=== PATIENT | male | born 1945 | race Caucasian/White ===

== ENCOUNTER 2022-12-15 07:57 | Inpatient (IN) | payer OTHER, MEDICARE, SELFPAY ==
[2022-12-15] VITALS (20 sets, daily range): BP systolic 119–208; BP diastolic 72–116; PULSE 65–86; RESP 16–24; TEMP 36.6–37.6; O2SAT 75–99; BMI 24.7; BMI 26.4
--- NOTE | 2022-12-15 08:15 | CRLHL7_ITS ---
For Patients: As a result of the Century Cures Act, medical imaging exams and procedure reports are released immediately into your electronic medical record. You may view this report before your referring provider. If you have questions, please contact your health care provider. INDICATION: Status post fall. On blood thinners. COMPARISON: Head CT 09/07/2019. TECHNIQUE: Noncontrast CT scan of the brain was performed. FINDINGS: Global cerebral volume loss is consistent with patient`s age. Patchy hypodensities within the white matter tracts of both cerebral hemispheres are nonspecific but typically seen with small vessel disease/chronic white matter ischemic changes of aging. No intracranial hemorrhage or mass effect is identified. The paranasal sinuses and mastoid air cells are well aerated. The orbits are unremarkable. No fracture is identified. IMPRESSION: No acute abnormality. Please note that all CT scans at this facility use dose modulation, iterative reconstruction, and/or weight-based dosing when appropriate to reduce radiation dose to as low as reasonably achievable. Dictated by Ignacio Horowitz MD @ 12/15/2022 8:41:46 AM (Electronically Signed)
[2022-12-15 08:48] LABS: Lactate* 3.5 mmol/L (0.5-1.9)
[2022-12-15] MEDS: 0.9 % SODIUM CHLORIDE 1000 ml 1,000 ML IV ×2 (09:01→11:27)
[2022-12-15 09:04] LABS: Chloride* 102 mmol/L (96-114)
[2022-12-15 09:05] LABS: Potassium* 3.9 mmol/L (3.6-5.1); Sodium* 138 mmol/L (135-149)
--- NOTE | 2022-12-15 09:05 | CRLHL7_ITS ---
For Patients: As a result of the Cures Act, medical imaging exams and procedure reports are released immediately into your electronic medical record. You may view this report before your referring provider. If you have questions, please contact your health care provider. Indication: Injury Technique: A total of two views of the right elbow were acquired. Comparison: None Findings: Bones: Somewhat limited due to portable technique. No visible acute fracture, dislocation or destructive process. Joint spaces: Mild osteoarthritis. No definite joint effusion. Soft tissues: Unremarkable. Impression: Somewhat limited by portable technique. No visible acute fracture, dislocation or destructive process. Mild osteoarthritis. Dictated by Phillip Bustillos MD @ 12/15/2022 9:46:49 AM (Electronically Signed)
[2022-12-15 09:06] LABS: PCR FLU A Negative PCR FLU A (Negative); PCR FLU B Negative PCR FLU B (Negative); PCR RSV Negative PCR RSV (Negative)
[2022-12-15 09:07] LABS: Est. Creatinine Clearance* 57.84; Estimated Glomerular Filt Rate 78 ml/min
[2022-12-15 09:08] LABS: Blood Urea Nitrogen* 18 mg/dL (7-30); Calcium* 8.9 mg/dL (8.4-10.6); Carbon Dioxide* 28 mmol/L (20-32); Ethanol* 0.13 % (0.01-0.03); Glucose* 91 mg/dL (60-115)
[2022-12-15 09:10] LABS: Basophils Absolute Auto 0.01 K/uL (0.00-0.30); Basophils Percent Auto 0.1 % (0.0-3.0); Eosinophils Absolute Auto 0.03 K/uL (0.00-0.50); Eosinophils Percent Auto 0.4 % (0.0-7.0); Hematocrit 44.5 % (37.0-53.0); Hemoglobin* 14.4 gm/dL (13.5-17.5); Immature Granulocytes Abs Auto 0.03 K/uL (0.00-0.30); Immature Granulocytes Pct Auto 0.4 %; Lymphocytes Percent Auto 7.7 % (20-44); Mean Corpuscular HGB Conc 32 gm/dL (32-36); Mean Corpuscular Hemoglobin 30 pg (26-34); Mean Corpuscular Volume 92 fL (80-100); Monocytes Percent Auto 7.8 % (0.0-11.0); Neutrophils Percent Auto 83.6 % (42.0-72.0); Platelet Count* 148 K/uL (140-440); RDW Coefficient of Variation % 16.6 % (11.5-15.5); Red Blood Count 4.85 m/uL (4.30-5.90); White Blood Count* 7.55 K/uL (4.50-11.00)
[2022-12-15 09:11] LABS: SARS PCR* Negative SARS-CoV-2 (Negative)
[2022-12-15 09:12] LABS: C Reactive Protein* < 0.5 mg/dL (0.5-1.0); INR 1.76 (0.91-1.10); Prothrombin Time 21.4 Seconds; Slide Review Reflex No
[2022-12-15 09:13] LABS: Partial Thromboplastin Time* 36 Seconds (23-33)
[2022-12-15 09:17] LABS: Troponin, Point-of-Care* 0.01 ng/ml (0.01-0.04)
[2022-12-15 09:21] LABS: NT Pro B Type NatriureticPept* 802 pg/mL
[2022-12-15 09:23] LABS: Creatine Kinase* 925 U/L (54-186)
--- NOTE | 2022-12-15 09:44 | CRLHL7_ITS ---
For Patients: As a result of the Cures Act, medical imaging exams and procedure reports are released immediately into your electronic medical record. You may view this report before your referring provider. If you have questions, please contact your health care provider. INDICATION: SOB TECHNIQUE: Chest 2 views COMPARISON: 09/07/2019 FINDINGS: The cardiac silhouette is enlarged. Tortuosity of the descending thoracic aorta noted. There is no pleural effusion. Vascular calcifications are present. Similar appearance of colon beneath the right hemidiaphragm. Increased reticular markings bilaterally compared to the prior study. No air bronchograms. IMPRESSION: Increased reticular markings bilaterally may suggest either mild interstitial edema or viral infection. Dictated by Erich Chang MD @ 12/15/2022 10:14:33 AM (Electronically Signed)
--- NOTE | 2022-12-15 10:06 | ED_ITS ---
HPI - Fall General Date Seen: 12/15/22 Chief Complaint: Fall/Minor Trauma Stated Complaint: syncope Time Seen by Provider: 12/15/22 08:36 Source: patient Mode of arrival: ambulatory Limitations: no limitations History of Present Illness HPI Narrative: Patient is a 77-year-old gentleman who presents from home via EMS, he was lying on the ground, after he fell, he tells me that this possibly was a syncopal episode but does not really remember it but he laid on the ground all night did want to bother anyone, but this morning, I believe his daughter called EMS. He is a , [facility], denies any chest pain, any headache or neck pain associated with this. Is on Xarelto, and tells me he is bruise is noted on his right elbow and left elbow from previous falls but he did fall injuries left elbow denies any neck pain associated with this. MD complaint: fall Onset (ago): hour(s) Fall from: standing Fall witnessed: no Place fall occurred: home Loss of consciousness: No Prolonged down time: yes and hour(s) Symptoms prior to fall: lightheadedness Context: tripped/slipped and history of frequent falls Location of injury: head and other Associated symptoms (after fall): denies Related Data Home Medications Medication Instructions Recorded Confirmed atorvastatin 40 mg tablet 40 mg PO QHS 12/15/22 12/15/22 brimonidine 0.2 % eye drops 1 drp ophthalmic (eye) BID 12/15/22 12/15/22 calcium carbonate 500 mg calcium 500 mg PO DAILY 12/15/22 12/15/22 (1,250 mg) tablet carboxymethylcellulose sodium 0.25 1 drp ophthalmic (eye) Q1H PRN 12/15/22 12/15/22 % eye drops in a dropperette cholecalciferol (vitamin D3) 25 25 mcg PO DAILY 12/15/22 12/15/22 mcg (1,000 unit) capsule cyanocobalamin (vitamin B-12) 1,000 mcg PO DAILY 12/15/22 12/15/22 1,000 mcg capsule fluticasone 250 mcg-salmeterol 50 1 inh inhalation BID 12/15/22 12/15/22 mcg/dose blistr powdr for inhalation (Advair Diskus) fluticasone propionate 50 1 spray intranasal DAILY PRN 12/15/22 12/15/22 mcg/actuation nasal spray,suspension (Allergy Relief (fluticasone)) gabapentin 300 mg capsule 600 mg PO BID 12/15/22 12/15/22 ipratropium bromide 17 2 inh inhalation Q6H 12/15/22 12/15/22 mcg/actuation HFA aerosol inhaler rivaroxaban 20 mg tablet 20 mg PO DAILY 12/15/22 12/15/22 zolpidem 10 mg tablet 5 - 10 mg PO QHS PRN 12/15/22 12/15/22 Allergies Allergy/AdvReac Type Severity Reaction Status Date / Time Penicillins Allergy Severe Rash Verified 12/15/22 08:01 Review of Systems Status of ROS: Reports: 10 or more systems reviewed and unremarkable except as noted in History and below PFSH [facility] Medical History (Updated 12/15/22 @ 12:54 by Best Lechuga MD) BPH (benign prostatic hyperplasia) ?N40.0 - Benign prostatic hyperplasia without lower urinary tract symptoms (ICD-10) COPD (chronic obstructive pulmonary disease) ?J44.9 - Chronic obstructive pulmonary disease, unspecified (ICD-10) Coronary artery disease ?I25.10 - Atherosclerotic heart disease of [place] coronary artery without angina pectoris (ICD-10) Depression ?F32.A - Depression, unspecified (ICD-10) Insomnia ?G47.00 - Insomnia, unspecified (ICD-10) Orthostatic hypotension ?I95.1 - Orthostatic hypotension (ICD-10) Recurrent deep vein thrombosis (DVT) ?I82.409 - Acute embolism and thrombosis of unspecified deep veins of unspecified lower extremity (ICD-10) Surgical History (Updated 12/15/22 @ 12:35 by Aria Dougherty MD) History of blepharoplasty ?Z98.890 - Other specified postprocedural states (ICD-10) Stented coronary artery ?Z95.5 - Presence of coronary angioplasty implant and graft (ICD-10) Social History (Updated 12/15/22 @ 12:37 by Aria Dougherty MD) Narrative: Rogerio lives near [facility] with Jocy and daughter Karen. Karen would be medical decision maker if needed. Rogerio requests DNR/DNI status. 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 He quit smoking in 2003 after his OK. Drinks 2-3 vodka drinks 3-4 nights/week, no history of withdrawal. Smoking Status: Never smoker Second hand tobacco smoke exposure: No How often do you have a drink containing alcohol: 2-3 times a week How many standard drinks containing alcohol do you have on a typical day: 3 or 4 AUDIT-C Alcohol total score: 4 Non-prescribed substance use: denies use service: Yes Exam Narrative: Exam Narrative: Patient is seen in room a, he is in no distress speaking to me normally, pupils equal round reactive to light, no scleral icterus redness is TMs are normally has a bruise over the right side of his forehead, there is no hematoma associated with this neck is supple there is no tenderness to palpation over cervical spine flexion extension lateral flexion rotation are normal his chest is good air entry bilaterally with no wheezing crackles noted heart sounds no clicks murmurs or gallops he has multiple bruises on his elbows bilaterally, but appears to be this senile purpura, these are of various colors, which tells me h e has fallen before. There is no significant skin abrasion I can see, his range of motion of his elbows is normal bilaterally in flexion extension supination pronation, sde strengths are equal bilaterally abdomen is soft and pot belly there is no guarding no past splenomegaly bowel sounds are normal, back is nontender both thoracic lumbar on palpation percussion, on and on log rolling. Lower extremities appear normal. Const: Vital Signs, click to edit/add: Vital Signs - 24 hr 12/15/22 08:02 12/15/22 08:08 12/15/22 08:10 Temperature 97.8 F Pulse Rate 84 86 Pulse Rate [Pulse Oximeter] 86 Respiratory Rate 24 Blood Pressure 208/111 H Blood Pressure [Le ft Upper Arm] 175/116 H Pulse Oximetry 97 94 89 Oxygen Delivery Me thod Room Air Oxygen Flow Rate 12/15/22 08:35 12/15/22 08:45 12/15/22 08:47 Temperature Pulse Rate 77 72 72 Pulse Rate [Pulse Oximeter] Respiratory Rate Blood Pressure 172/94 H Blood Pressure [Le ft Upper Arm] Pulse Oximetry 86 L 88 89 Oxygen Delivery Me thod Oxygen Flow Rate 12/15/22 09:00 12/15/22 09:04 12/15/22 09:15 Temperature Pulse Rate 82 74 72 Pulse Rate [Pulse Oximeter] Respiratory Rate Blood Pressure 176/104 H Blood Pressure [Le ft Upper Arm] Pulse Oximetry 75 L 85 L 99 Oxygen Delivery Me thod Nasal Cannula Nasal Cannula Oxygen Flow Rate 2 3 12/15/22 09:30 12/15/22 09:32 Temperature Pulse Rate 73 73 Pulse Rate [Pulse Oximeter] Respiratory Rate Blood Pressure 166/85 H Blood Pressure [Le ft Upper Arm] Pulse Oximetry 80 L 95 Oxygen Delivery Me thod Oxygen Flow Rate Course Reevaluation(s) Reevaluation #1: Discussed with the patient, I recommended admission, there clearly is some issue with alcohol here.. Was a syncopal episode, is CK is mildly elevated, he will need fluids over the next 24 hours, CT of his head neck is reassuring, chest x- ray shows no acute findings, I think we can safely admit him, I spoke to Dr. Dougherty she will meet him to the hospital service. His elevated lactate I believe is likely secondary to his alcohol use I am not thinking this is sepsis. At this point. Vital Signs Vital signs: Initial Vital Signs Temperature 97.8 F 12/15/22 08:02 Temperature Source Temporal Artery Scan 12/15/22 08:02 Pulse Rate 86 12/15/22 08:02 Pulse Rhythm Regular 12/15/22 08:02 Respiratory Rate 24 12/15/22 08:02 Blood Pressure 175/116 H 12/15/22 08:02 Blood Pressure Mean 135 H 12/15/22 08:02 Blood Pressure Position Supine 12/15/22 08:02 Pulse Oximetry 97 12/15/22 08:02 Oxygen Delivery Method Room Air 12/15/22 08:02 Vital Signs Temperature 97.8 F 12/15/22 08:02 Pulse Rate 86 12/15/22 08:02 Respiratory Rate 24 12/15/22 08:02 Blood Pressure 175/116 H 12/15/22 08:02 Pulse Oximetry 97 12/15/22 08:02 Oxygen Delivery Method Room Air 12/15/22 08:02 Temperature 97.8 F 12/15/22 08:02 Pulse Rate 73 12/15/22 09:32 Respiratory Rate 24 12/15/22 08:02 Blood Pressure 166/85 H 12/15/22 09:32 Pulse Oximetry 95 12/15/22 09:32 Oxygen Delivery Method Nasal Cannula 12/15/22 09:15 Oxygen Flow Rate 3 12/15/22 09:15 MDM - Fall MDM Narrative Medical decision making narrative: Life-threatening differential diagnosis considered include: Cardiac arrhythmia, acute blood loss, and intracranial bleed. Other differential diagnosis include but are not limited to vasovagal syncope, orthostatic syncope, seizure, as well as other etiologies Medical Records Attestation: I reviewed the patient's medical records. Lab Data Attestation: I reviewed the patient's lab results. Labs: Lab Results 12/15/22 12/15/22 12/15/22 Range/Units 08:22 08:32 08:35 WBC 7.55 (4.50-11.00) K/uL RBC 4.85 (4.30-5.90) m/uL Hgb 14.4 (13.5-17.5) gm/dL Hct 44.5 (37.0-53.0) % MCV 92 (80-100) fL MCH 30 (26-34) pg MCHC 32 (32-36) gm/dL RDW Coeff of Kyung 16.6 H (11.5-15.5) % Plt Count 148 (140-440) K/uL Neut % (Auto) 83.6 H (42.0-72.0) % Lymph % (Auto) 7.7 L (20-44) % [place] % (Auto) 7.8 (0.0-11.0) % Eos % (Auto) 0.4 (0.0-7.0) % Baso % (Auto) 0.1 (0.0-3.0) % Neut # (Auto) 6.30 (1.7-7.0) K/uL Lymph # (Auto) 0.60 L (0.90-2.90) K/uL [place] # (Auto) 0.60 (0.00-0.90) K/UL Eos # (Auto) 0.03 (0.00-0.50) K/uL Baso # (Auto) 0.01 (0.00-0.30) K/uL INR 1.76 H (0.91-1.10) APTT 36 H (23-33) Seconds D-Dimer Quant (PE/DVT) (0.00-0.50) ug/ml Sodium 138 (135-149) mmol/L Potassium 3.9 (3.6-5.1) mmol/L Chloride 102 (96-114) mmol/L Carbon Dioxide 28 (20-32) mmol/L BUN 18 (7-30) mg/dL Creatinine 1.0 (0.5-1.5) mg/dL Estimated Creat Clear 57.84 Estimated GFR 78 ml/min Glucose 91 (60-115) mg/dL Lactate 3.5 H (0.5-1.9) mmol/L Calcium 8.9 (8.4-10.6) mg/dL Total Creatine Kinase 925 H (54-186) U/L C-Reactive Protein < 0.5 L (0.5-1.0) mg/dL NT-Pro-B Natriuret Pep 802 pg/mL Ethyl Alcohol 0.13 H (0.01-0.03) % SARS-CoV-2 (PCR) Negative SARS-CoV-2 (Negative) Influenza Type A (PCR) Negative PCR FLU A (Negative) Influenza Type B (PCR) Negative PCR FLU B (Negative) RSV (PCR) Negative PCR RSV (Negative) POC Troponin I 0.01 (0.01-0.04) ng/ml 12/15/22 Range/Units 09:57 WBC (4.50-11.00) K/uL RBC (4.30-5.90) m/uL Hgb (13.5-17.5) gm/dL Hct (37.0-53.0) % MCV (80-100) fL MCH (26-34) pg MCHC (32-36) gm/dL RDW Coeff of Kyung (11.5-15.5) % Plt Count (140-440) K/uL Neut % (Auto) (42.0-72.0) % Lymph % (Auto) (20-44) % [place] % (Auto) (0.0-11.0) % Eos % (Auto) (0.0-7.0) % Baso % (Auto) (0.0-3.0) % Neut # (Auto) (1.7-7.0) K/uL Lymph # (Auto) (0.90-2.90) K/uL [place] # (Auto) (0.00-0.90) K/UL Eos # (Auto) (0.00-0.50) K/uL Baso # (Auto) (0.00-0.30) K/uL INR (0.91-1.10) APTT (23-33) Seconds D-Dimer Quant (PE/DVT) 0.62 H (0.00-0.50) ug/ml Sodium (135-149) mmol/L Potassium (3.6-5.1) mmol/L Chloride (96-114) mmol/L Carbon Dioxide (20-32) mmol/L BUN (7-30) mg/dL Creatinine (0.5-1.5) mg/dL Estimated Creat Clear Estimated GFR ml/min Glucose (60-115) mg/dL Lactate (0.5-1.9) mmol/L Calcium (8.4-10.6) mg/dL Total Creatine Kinase (54-186) U/L C-Reactive Protein (0.5-1.0) mg/dL NT-Pro-B Natriuret Pep pg/mL Ethyl Alcohol (0.01-0.03) % SARS-CoV-2 (PCR) (Negative) Influenza Type A (PCR) (Negative) Influenza Type B (PCR) (Negative) RSV (PCR) (Negative) POC Troponin I (0.01-0.04) ng/ml Imaging Data CT scan - head: Radiologist's impression: Patient: [facility] Facility:[facility] Patient ID:?[id number] Site Patient ID:?[id number]. Site :?1945 Study:?XRay Extremity Right ELBOE 2V-12/15/2022 9:32:32 AM Ordering Physician:Tonya Jewell Final Report: Indication: Injury Technique: A total of two views of the right elbow were acquired. Comparison: None Findings: Bones: Somewhat limited due to portable technique. No visible acute fracture, dislocation or destructive process. Joint spaces: Mild osteoarthritis. No definite joint effusion. Soft tissues: Unremarkable. Impression: Somewhat limited by portable technique. No visible acute fracture, dislocation or destructive process. Mild osteoarthritis. Dictated by Phillip Bustillos MD @ 12/15/2022 9:46:49 AM (Electronic Signature) Patient: [facility] Facility:[facility] Patient ID:?[id number] Site Patient ID:?[id number]. Site :?1945 Study:?CT Head W/O-12/15/2022 8:31:24 AM Ordering Physician:YANET TORRES Final Report: INDICATION: Status post fall. On blood thinners. COMPARISON: Head CT 09/07/2019. TECHNIQUE: Noncontrast CT scan of the brain was performed. FINDINGS: Global cerebral volume loss is consistent with patient`s age. Patchy hypodensities within the white matter tracts of both cerebral hemispheres are nonspecific but typically seen with small vessel disease/chronic white matter ischemic changes of aging. No intracranial hemorrhage or mass effect is identified. The paranasal sinuses and mastoid air cells are well aerated. The orbits are unremarkable. No fracture is identified. IMPRESSION: No acute abnormality. Please note that all CT scans at this facility use dose modulation, iterative reconstruction, and/or weight-based dosing when appropriate to reduce radiation dose to as low as reasonably achievable. Dictated by Ignacio Horowitz MD @ 12/15/2022 8:41:46 AM (Electronic Signature) Patient: [facility] CHANS Facility:?[facility] Patient ID:?[id number] Site Patient ID:?[id number]. Site :?1945 Study:?XRay Chest 2 VIEW-12/15/2022 10:05:37 AM Ordering Physician:Tonya Jewell Final Report: INDICATION: SOB TECHNIQUE: Chest 2 views COMPARISON: 09/07/2019 FINDINGS: The cardiac silhouette is enlarged. Tortuosity of the descending thoracic aorta noted. There is no pleural effusion. Vascular calcifications are present. Similar appearance of colon beneath the right hemidiaphragm. Increased reticular markings bilaterally compared to the prior study. No air bronchograms. IMPRESSION: Increased reticular markings bilaterally may suggest either mild interstitial edema or viral infection. Dictated by Erich Chang MD @ 12/15/2022 10:14:33 AM (Electronic Signature) Patient: [facility]S IGLESIAS Facility:?[facility] Patient ID:?[id number] Site Patient ID:?[id number] Site :?1945 Study:?CT Spine Cervical -12/15/2022 10:38:01 AM Ordering Physician:Tonya Jewell Final Report: INDICATION: Injury COMPARISON: None TECHNIQUE: CT examination of the cervical spine is performed without contrast using spiral technique. Thin axial, sagittal and coronal reconstructions were made. Please note that all CT scans at this facility use dose modulation, iterative reconstruction, and/or weight-based dosing when appropriate to reduce radiation dose to as low as reasonably achievable. FINDINGS: : There is straightening of the spine. This is usually due to muscle spasm, positioning or immobilization device. There are moderate to severe degenerative changes diffusely but most affecting the mid and lower lumbar spine. There is no visible acute fracture, dislocation or destructive process. Atherosclerotic vascular calcifications. IMPRESSION: Straightening. Degenerative changes. No acute fracture, dislocation or destructive process. Please note that all CT scans at this facility use dose modulation, iterative reconstruction, and/or weight-based dosing when appropriate to reduce radiation dose to as low as reasonably achievable. Dictated by Phillip Bustillos MD @ 12/15/2022 10:50:59 AM (Electronic Signature) ECG Data ECG interpretation date: 12/15/22 Interpretation: EKG shows normal sinus rhythm with ventricular rate of 74, left anterior fascicular block, ST wave flattening noted laterally, abnormal EKG Discharge Plan Discharge Clinical Impression: Elevation of levels of lactic acid dehydrogenase [LDH], Elevated ETOH level, Syncopal episodes, Weakness Patient Disposition: Admitted As Inpatient Condition: Stable Activity Level: No Restrictions
--- NOTE | 2022-12-15 10:10 | CRLHL7_ITS ---
For Patients: As a result of the Cures Act, medical imaging exams and procedure reports are released immediately into your electronic medical record. You may view this report before your referring provider. If you have questions, please contact your health care provider. INDICATION: Injury COMPARISON: None TECHNIQUE: CT examination of the cervical spine is performed without contrast using spiral technique. Thin axial, sagittal and coronal reconstructions were made. Please note that all CT scans at this facility use dose modulation, iterative reconstruction, and/or weight-based dosing when appropriate to reduce radiation dose to as low as reasonably achievable. FINDINGS: : There is straightening of the spine. This is usually due to muscle spasm, positioning or immobilization device. There are moderate to severe degenerative changes diffusely but most affecting the mid and lower lumbar spine. There is no visible acute fracture, dislocation or destructive process. Atherosclerotic vascular calcifications. IMPRESSION: Straightening. Degenerative changes. No acute fracture, dislocation or destructive process. Please note that all CT scans at this facility use dose modulation, iterative reconstruction, and/or weight-based dosing when appropriate to reduce radiation dose to as low as reasonably achievable. Dictated by Phillip Bustillos MD @ 12/15/2022 10:50:59 AM (Electronically Signed)
--- NOTE | 2022-12-15 10:14 | RESP.RT ---
Patient SATing 99% on 3L NC. Patient taken off supplemental O2 and his SATs remained at 97%. Patient states that he took his respiratory meds this morning without issue.
--- NOTE | 2022-12-15 10:20 | PC.SOCIAL ---
Social work note: Called dtr, Bri [phone] to clarify home situation at RN request. Dtr states she lives with pt and at home and is the primary caregiver for pt's . Dtr states she is able to continue to provide care for and has no concerns regariding this if pt is admitted to the hospital. Bri requested to be contacted by RN regarding admission to the hospital as she will be calling the [facility] to inform them of his admission so that they will assist financially with medical bills at the hospital. RN aware of this request.
[2022-12-15 10:40] LABS: D Dimer Quantitative* 0.62 ug/ml (0.00-0.50)
--- NOTE | 2022-12-15 11:05 | ED.NURSE ---
Patient resting comfortably. Has chronic pain all over. Had an episode of shortness of breath and desaturation. MD was notified and RT called. Went for a chest Xray. Patient remains on 2L of NC. Attempted to call daughter to let her know patient will likely be admitted. No answer and unable to leave a voicemail. Phone number for Bri parr: [phone]. Social work was consulted for concerns of patients and daughter who are at home and he helps care for. See social work note for more clarification.
--- NOTE | 2022-12-15 12:24 | ED.NURSE ---
Report given to DONALD Moran. Patient and all belongings sent with.
--- NOTE | 2022-12-15 12:27 | PM.IMHP1 ---
Hospitalist- H&P: HPI History of Present Illness Date Seen: 12/15/22 Chief complaint: syncope Narrative: Gibran Wick is a 77 year old male who presented to the emergency room this morning via EMS. Rogerio had a fall at home last night; he remembers the fall and does not recall any specific symptoms or inciting incident prior. He endorses a history of orthostatic hypotension. Last night, Rogerio refused to let his daughter call the ambulance immediately after falling because he felt that he would be okay until the morning. Today, he notes mild headache on his R forehead, and discomfort in RUE. No focal Neurological deficits. ER course and findings: - CK 900s - no acute abnormalities on imaging (CT head, CT C-spine, CXR, RUE XR) - elevated Lactate - ETOH elevated (patient endorses 2 vodka drinks last night) Given patient's recent fall, discomfort, and anticoagulated status, he is admitted to the hospital. Patient's past medical hit history updated below. The [facility] is his primary medical home. Rogerio notably has a history of recurrent DVTs and is anticoagulated on Xarelto. He also has non oxygen dependent COPD. He believes he has been told he has some liver problem in the past, presumably fatty liver disease. Review of Systems Status of ROS: Reports: 10 or more systems reviewed and unremarkable except as noted in History and below Narrative: - intermittent diarrhea, unchanged. No abdominal pain - no CP or dyspnea - chronic insomnia, on Ambien. Did not take 4/17 pm - denies daily ETOH use (3-4 nights/week), no history of withdrawal PFSH PFS Medical History (Updated 12/15/22 @ 12:59 by Aria Dougherty MD) BPH (benign prostatic hyperplasia) ?N40.0 - Benign prostatic hyperplasia without lower urinary tract symptoms (ICD-10) COPD (chronic obstructive pulmonary disease) ?J44.9 - Chronic obstructive pulmonary disease, unspecified (ICD-10) Coronary artery disease ?I25.10 - Atherosclerotic heart disease of [place] coronary artery without angina pectoris (ICD-10) Depression ?F32.A - Depression, unspecified (ICD-10) Insomnia ?G47.00 - Insomnia, unspecified (ICD-10) Orthostatic hypotension ?I95.1 - Orthostatic hypotension (ICD-10) Recurrent deep vein thrombosis (DVT) ?I82.409 - Acute embolism and thrombosis of unspecified deep veins of unspecified lower extremity (ICD-10) Surgical History (Updated 12/15/22 @ 12:35 by Aria Dougherty MD) History of blepharoplasty ?Z98.890 - Other specified postprocedural states (ICD-10) Stented coronary artery ?Z95.5 - Presence of coronary angioplasty implant and graft (ICD-10) Social History (Updated 12/15/22 @ 12:37 by Aria Dougherty MD) Narrative: Rogerio lives near [facility] with Jocy and daughter Karen. Karen would be medical decision maker if needed. Rogerio requests DNR/DNI status. 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 He quit smoking in 2003 after his AK. Drinks 2-3 vodka drinks 3-4 nights/week, no history of withdrawal. Smoking Status: Never smoker Second hand tobacco smoke exposure: No How often do you have a drink containing alcohol: 2-3 times a week How many standard drinks containing alcohol do you have on a typical day: 3 or 4 AUDIT-C Alcohol total score: 4 Non-prescribed substance use: denies use service: Yes Meds Home Medications and Allergies Home Medications Medication Instructions Recorded Confirmed Type atorvastatin 40 mg tablet 40 mg PO QHS 12/15/22 12/15/22 History brimonidine 0.2 % eye drops 1 drp ophthalmic (eye) BID 12/15/22 12/15/22 History calcium carbonate 500 mg calcium 500 mg PO DAILY 12/15/22 12/15/22 History (1,250 mg) tablet carboxymethylcellulose sodium 0.25 1 drp ophthalmic (eye) Q1H PRN 12/15/22 12/15/22 History % eye drops in a dropperette cholecalciferol (vitamin D3) 25 25 mcg PO DAILY 12/15/22 12/15/22 History mcg (1,000 unit) capsule cyanocobalamin (vitamin B-12) 1,000 mcg PO DAILY 12/15/22 12/15/22 History 1,000 mcg capsule fluticasone 250 mcg-salmeterol 50 1 inh inhalation BID 12/15/22 12/15/22 History mcg/dose blistr powdr for inhalation (Advair Diskus) fluticasone propionate 50 1 spray intranasal DAILY PRN 12/15/22 12/15/22 History mcg/actuation nasal spray,suspension (Allergy Relief (fluticasone)) gabapentin 300 mg capsule 600 mg PO BID 12/15/22 12/15/22 History ipratropium bromide 17 2 inh inhalation Q6H 12/15/22 12/15/22 History mcg/actuation HFA aerosol inhaler rivaroxaban 20 mg tablet 20 mg PO DAILY 12/15/22 12/15/22 History zolpidem 10 mg tablet 5 - 10 mg PO QHS PRN 12/15/22 12/15/22 History Allergies Allergy/AdvReac Type Severity Reaction Status Date / Time Penicillins Allergy Severe Rash Verified 12/15/22 08:01 Exam Narrative: Exam Narrative: GEN: Alert and answering questions appropriately, appears mildly disheveled but nontoxic HEENT: Upper dentures noted, EOMIs bilaterally, no scleral icterus. Sutures from recent blepharoplasty exhibit normal healing CV: RRR, No concerning murmurs R: LCTA bilaterally without concerning wheezing, air movement adequate Ab: + hepatomegaly noted without ttp Ext: wwp, no concerning edema Skin: Small bruise right forehead, scattered bruising bilateral upper extremities Neuro: No focal deficits, no resting tremor Psych: Appropriate Const: Vital Signs, click to edit/add: Vital Signs - 24 hr 12/15/22 08:02 12/15/22 08:08 12/15/22 08:10 Temperature 97.8 F Pulse Rate 84 86 Pulse Rate [Pulse Oximeter] 86 Respiratory Rate 24 Blood Pressure 208/111 H Blood Pressure [Le ft Upper Arm] 175/116 H Pulse Oximetry 97 94 89 Oxygen Delivery Me thod Room Air Oxygen Flow Rate 12/15/22 08:35 12/15/22 08:45 12/15/22 08:47 Temperature Pulse Rate 77 72 72 Pulse Rate [Pulse Oximeter] Respiratory Rate Blood Pressure 172/94 H Blood Pressure [Le ft Upper Arm] Pulse Oximetry 86 L 88 89 Oxygen Delivery Me thod Oxygen Flow Rate 12/15/22 09:00 12/15/22 09:04 12/15/22 09:15 Temperature Pulse Rate 82 74 72 Pulse Rate [Pulse Oximeter] Respiratory Rate Blood Pressure 176/104 H Blood Pressure [Le ft Upper Arm] Pulse Oximetry 75 L 85 L 99 Oxygen Delivery Me thod Nasal Cannula Nasal Cannula Oxygen Flow Rate 2 3 12/15/22 09:30 12/15/22 09:32 Temperature Pulse Rate 73 73 Pulse Rate [Pulse Oximeter] Respiratory Rate Blood Pressure 166/85 H Blood Pressure [Le ft Upper Arm] Pulse Oximetry 80 L 95 Oxygen Delivery Me thod Oxygen Flow Rate Hospitalist - H&P: Result Labs Labs: Short CBC 12/15/22 Range/Units 08:35 WBC 7.55 (4.50-11.00) K/uL Hgb 14.4 (13.5-17.5) gm/dL Hct 44.5 (37.0-53.0) % Plt Count 148 (140-440) K/uL BMP 12/15/22 08:35 Sodium 138 Potassium 3.9 Chloride 102 Carbon Dioxide 28 BUN 18 Creatinine 1.0 Glucose 91 Calcium 8.9 Cardiac Enzymes 12/15/22 Range/Units 08:35 Total Creatine Kinase 925 H (54-186) U/L Assessment and Plan Assessment and plan (1) Fall at home: Problem comment: - with resultant mild rhabdomyolysis - low-dose IVFs, follow lactate and CK - patient believes this was mechanical, but endorses a history of orthostatic hypotension - telemetry to evaluate for arrhythmia, orthostatic vital signs - therapies ordered Status: Acute (2) Chronic anticoagulation: Problem comment: - Xarelto for recurrent DVTs Status: Acute (3) Hepatomegaly: Problem comment: - noted on admission exam with history of alcohol use and presumably fatty liver disease. Follow LFTs (added to ED labs, pending) Status: Acute (4) Coronary artery disease: Problem comment: - quiescent Status: Acute (5) Weakness: Status: Acute (6) COPD (chronic obstructive pulmonary disease): Problem comment: - not oxygen dependent at baseline, currently requiring low-dose supplemental oxygen - Continue home medications, RT referral Status: Acute Plan - per above - continue Xarelto for prophylaxis given no acute evidence for bleeding concerns at this time - plans to return to home with and daughter when medically stable
--- NOTE | 2022-12-15 12:32 | ED.NURSE ---
Ricardo calling back about patient belongings- patient thinks his daughter sent a bag of clean clothes with the ambulance this morning. Waiting to hear from them if this is the case.
[2022-12-15 13:10] LABS: Albumin* 4.3 g/dL (3.3-5.0)
[2022-12-15 13:13] LABS: Alanine Aminotransferase* 42 U/L (4-50); Alkaline Phosphatase* 68 U/L (40-150); Aspartate Amino Transferase* 66 U/L (12-35); Bilirubin Direct* 0.5 mg/dL (0.0-0.5); Bilirubin Total* 0.9 mg/dL (0.1-1.5)
--- NOTE | 2022-12-15 13:25 | PC.NURSE ---
[facility] called back and stated no belongings were sent with patient in ambulance when patient was brought in.
[2022-12-15] MEDS: LORazepam 1 MG TABLET PO ×2 (13:37→16:10)
[2022-12-15] MEDS: ACETAMINOPHEN 325 MG TABLET 975 MG PO (16:10)
[2022-12-15 17:28] LABS: Lactate* 0.9 mmol/L (0.5-1.9)
[2022-12-15 17:58] LABS: Creatine Kinase* 1022 U/L (54-186)
--- NOTE | 2022-12-15 18:17 | PC.NURSE ---
Patient has given consent to give daughter Maricel information.
[2022-12-15] MEDS: RIVAROXABAN 10 MG TABLET 20 MG PO (18:29)
[2022-12-15] MEDS: IPRAT-ALBUT 0.5-2.5 MG/3 ML NEB 1 NEB IH (18:30)
--- NOTE | 2022-12-15 19:40 | PC.NURSE ---
Pt. up to floor at 1230. pleasant and cooperative. Alert and oriented x4. Pt. has a bruise on right side of forehead and scattered bruising from fall. Pt. is on 2 L NC, sating at 93%. IV in right AC and Left AC patent. Pt's Administered 1 mg Ativan per CIWA protocol x2. see eMAR. Pt. states he has a mild headache related to the fall he had prior to coming here, he has floaters in his eyes and he states it looks like Gnats flying around, Pt. states his hands shake from his undiagnosed Parkinson.
[2022-12-15] MEDS: OXYCODONE 5 MG TABLET PO (20:27)
[2022-12-15] MEDS: 0.9 % SODIUM CHLORIDE 1000 ml 1,000 ML 150 ML IV (21:07)
[2022-12-15] MEDS: ATORVASTATIN CALCIUM 40 MG TABLET PO (21:08)
[2022-12-15] MEDS: GABAPENTIN 300 MG CAPSULE 600 MG PO (21:08)
[2022-12-15] MEDS: BUDESONIDE 0.5 MG/2ML NEB NEB (21:08)
[2022-12-15] MEDS: SODIUM CHLORIDE 0.9 % (FLUSH) 10 ML SYRINGE 5 ML IVF (21:09)
[2022-12-15] MEDS: BRIMONIDINE TARTRATE 0.2% OPHTH 1 DROP EYE-BOTH (22:44)
[2022-12-16] VITALS (8 sets, daily range): BP systolic 118–174; BP diastolic 57–97; PULSE 63–78; RESP 16–20; TEMP 36.4–36.8; O2SAT 90–100
[2022-12-16] MEDS: 0.9 % SODIUM CHLORIDE 1000 ml 1,000 ML 150 ML IV (03:48)
--- NOTE | 2022-12-16 05:57 | PC.NURSE ---
[id number] Shift Summary? 243 R.P. Fall, EtOH ? Pt?s CIWAs 6-8 this shift. Shaking of arms (R>L) consistent- pt believes it is early Parkinson's. No nausea/vomiting. No visual or auditory disturbances besides reported ?floater? or ?gnats? in peripherals at?times.?Some diaphoresis with a linen change. Attempted to use urinal at bedside and walked with automobile and property underwriter to BR x1. AO1 with walker, steady but shuffled gait. NC @ 1L, wean as able (COPD).?Was sleeping during 2nd neb, pt declined. Clothes hanging in the BR to dry as pt was fixated on having them cleaned. Dentures in denture cup.?NaCl running at 125mL/hr. Headache controlled with Tylenol and 5mg oxy. Labs redrawn this morning.?Hoping to DC home today to and daughter. ?
[2022-12-16 06:47] LABS: Basophils Absolute Auto 0.01 K/uL (0.00-0.30); Basophils Percent Auto 0.2 % (0.0-3.0); Eosinophils Absolute Auto 0.11 K/uL (0.00-0.50); Eosinophils Percent Auto 2.3 % (0.0-7.0); Hematocrit 36.1 % (37.0-53.0); Hemoglobin* 11.5 gm/dL (13.5-17.5); Immature Granulocytes Abs Auto 0.04 K/uL (0.00-0.30); Immature Granulocytes Pct Auto 0.9 %; Lymphocytes Percent Auto 18.9 % (20-44); Mean Corpuscular HGB Conc 32 gm/dL (32-36); Mean Corpuscular Hemoglobin 30 pg (26-34); Mean Corpuscular Volume 95 fL (80-100); Monocytes Percent Auto 9.8 % (0.0-11.0); Neutrophils Absolute Auto 3.19 K/uL (1.7-7.0); Neutrophils Percent Auto 67.9 % (42.0-72.0); Platelet Count* 113 K/uL (140-440); RDW Coefficient of Variation % 16.7 % (11.5-15.5); Red Blood Count 3.79 m/uL (4.30-5.90)
[2022-12-16] MEDS: IPRAT-ALBUT 0.5-2.5 MG/3 ML NEB 1 NEB IH ×2 (07:01→11:13)
[2022-12-16 07:03] LABS: Slide Review Reflex No
[2022-12-16 07:06] LABS: Albumin* 3.4 g/dL (3.3-5.0); Chloride* 104 mmol/L (96-114); Potassium* 3.5 mmol/L (3.6-5.1); Sodium* 136 mmol/L (135-149)
[2022-12-16 07:08] LABS: Creatinine* 1.2 mg/dL (0.5-1.5); Estimated Glomerular Filt Rate 62 ml/min
[2022-12-16 07:09] LABS: Alanine Aminotransferase* 37 U/L (4-50); Alkaline Phosphatase* 60 U/L (40-150); Aspartate Amino Transferase* 64 U/L (12-35); Bilirubin Total* 0.8 mg/dL (0.1-1.5); Blood Urea Nitrogen* 19 mg/dL (7-30); Carbon Dioxide* 28 mmol/L (20-32); Creatine Kinase* 1045 U/L (54-186); Glucose* 95 mg/dL (60-115); Total Protein* 6.5 g/dL (6.0-8.3)
[2022-12-16 07:10] LABS: Calcium* 7.9 mg/dL (8.4-10.6)
[2022-12-16 08:17] LABS: Gamma Glutamyl Transpeptidase* 39 U/L (8-55)
--- NOTE | 2022-12-16 10:39 | PM.DS1 ---
DS: Providers Provider Date Seen: 12/16/22 Date of admission: 12/15/22 13:52 Primary care physician: Not a Local Provider Admitting Clinician: Aria Dougherty MD Consults: SW, PT, OT, RT Attending Physician on discharge: Aria Dougherty MD Date of Discharge: 12/16/22 DS: Diagnosis Discharge Diagnosis (1) Fall at home: Status: Acute Problem details: - with resultant mild elevation in CK - patient believes fall was mechanical, also endorses a history of orthostatic hypotension - was noted to have an elevated ETOH level in the ED - no abnormalities on telemetry, remained stable and ready for d/c on hospital day 1 (2) Weakness: Status: Acute Problem details: - improved during stay (3) Chronic anticoagulation: Status: Acute Problem details: - Xarelto for recurrent DVTs (4) Hepatomegaly: Status: Acute Problem details: - noted on admission exam 12/15/22 with history of alcohol use and presumably fatty liver disease - elevated AST; recommend ETOH cessation and close PCP f/u (5) COPD (chronic obstructive pulmonary disease): Status: Acute Problem details: - not oxygen dependent at baseline, intermittently required low-dose supplemental oxygen during stay - Continued home medications, followed by RT DS: Summary Hospital Course Hospital Course: Rogerio is a 77 yo male who was admitted to the hospital after a fall at home (happened in the evening of 12/14, didn't let his daughter call the ambulance until 12/15 am). He was found to have an elevated ETOH level, elevated CK, elevated lactate. He was admitted for IVFs and evaluation; improved significantly during stay. Tolerated ambulation and po intake, medically stable and appropriate for d/c home with family on 12/16. Comorbidities remained stable and no changes were made to home medications. We recommend no further ETOH use given fall and elevated AST. Rogerio was followed by RT for COPD history and intermittent need for low dose supplemental oxygen; no home oxygen recommended upon discharge. He will have close f/u with his PCP at the [facility] upon discharge. Time Spent with Patient Time attestation: Total time spent providing and/or coordinating discharge services: Time spent: Greater than 30 minutes Specific discharge activities: care coordination, medication reconciliation Exam Narrative: Exam Narrative: GEN: Alert and oriented, sitting comfortably in bedside chair HEENT: Small abrasion right upper forehead, improved from admission. + cataracts, stable. EOMIs bilaterally, no scleral icterus CV: RRR, No concerning murmurs R: LCTA bilaterally without concerning wheezing, air movement adequate Ext: wwp, no concerning edema Skin: Scattered bruising bilateral upper extremities, R>L Neuro: Nonfocal Psych: Appropriate Const: Vital Signs, click to edit/add: Vital Signs - 24 hr 12/15/22 12:59 12/15/22 12:59 12/15/22 12:43 Temperature 99.6 F 99.6 F Pulse Rate Pulse Rate [Pulse Oximeter] 80 80 Respiratory Rate 24 24 24 Blood Pressure [Le ft Arm] 119/111 H 119/111 H Pulse Oximetry 96 96 96 Oxygen Delivery Me thod Nasal Cannula Nasal Cannula Nasal Cannula Oxygen Flow Rate 2 2 2 12/15/22 15:00 12/15/22 15:00 12/15/22 15:00 Temperature 98.2 F Pulse Rate Pulse Rate [Pulse Oximeter] 84 84 Respiratory Rate 20 20 20 Blood Pressure [Le ft Arm] 151/77 H Pulse Oximetry 95 95 Oxygen Delivery Me thod Nasal Cannula Nasal Cannula Oxygen Flow Rate 2 2 12/15/22 15:00 12/15/22 16:00 12/15/22 17:00 Temperature 98.2 F 98.6 F 98.6 F Pulse Rate Pulse Rate [Pulse Oximeter] 84 82 82 Respiratory Rate 20 20 20 Blood Pressure [Le ft Arm] 151/77 H 125/76 125/76 Pulse Oximetry 95 95 95 Oxygen Delivery Me thod Nasal Cannula Nasal Cannula Nasal Cannula Oxygen Flow Rate 2 2 2 12/15/22 18:00 12/15/22 20:45 12/15/22 23:00 Temperature 97.9 F 98.4 F Pulse Rate Pulse Rate [Pulse Oximeter] 84 81 Respiratory Rate 20 16 18 Blood Pressure [Le ft Arm] 142/72 H 132/75 Pulse Oximetry 95 95 Oxygen Delivery Me thod Nasal Cannula Nasal Cannula Oxygen Flow Rate 2 2 12/15/22 23:00 12/16/22 02:40 12/16/22 03:00 Temperature 98.1 F 97.9 F Pulse Rate Pulse Rate [Pulse Oximeter] 63 72 Respiratory Rate 16 18 Blood Pressure [Le ft Arm] 130/71 174/97 H Pulse Oximetry 95 98 Oxygen Delivery Me thod Nasal Cannula Nasal Cannula Nasal Cannula Oxygen Flow Rate 2 2 1 12/16/22 04:45 12/15/22 19:00 Temperature 97.9 F Pulse Rate 65 Pulse Rate [Pulse Oximeter] 72 Respiratory Rate 18 Blood Pressure [Le ft Arm] 174/97 H Pulse Oximetry 98 Oxygen Delivery Me thod Nasal Cannula Oxygen Flow Rate 1 DS: Data Data Completed and Pending Labs on day of discharge: Labs from last 24 hours 12/16/22 12/15/22 12/15/22 05:35 17:21 09:57 WBC 4.70 RBC 3.79 L Hgb 11.5 L Hct 36.1 L MCV 95 MCH 30 MCHC 32 RDW Coeff of Kyung 16.7 H Plt Count 113 L Neut % (Auto) 67.9 Lymph % (Auto) 18.9 L [place] % (Auto) 9.8 Eos % (Auto) 2.3 Baso % (Auto) 0.2 Neut # (Auto) 3.19 Lymph # (Auto) 0.90 [place] # (Auto) 0.50 Eos # (Auto) 0.11 Baso # (Auto) 0.01 D-Dimer Quant (PE/DVT) 0.62 H Sodium 136 Potassium 3.5 L Chloride 104 Carbon Dioxide 28 BUN 19 Creatinine 1.2 Estimated Creat Clear 48.20 Estimated GFR 62 Glucose 95 Lactate 0.9 Calcium 7.9 L Total Bilirubin 0.8 Direct Bilirubin GGT 39 AST 64 H ALT 37 Alkaline Phosphatase 60 Total Creatine Kinase 1045 H 1022 H Total Protein 6.5 Albumin 3.4 12/15/22 08:35 WBC RBC Hgb Hct MCV MCH MCHC RDW Coeff of Kyung Plt Count Neut % (Auto) Lymph % (Auto) [place] % (Auto) Eos % (Auto) Baso % (Auto) Neut # (Auto) Lymph # (Auto) [place] # (Auto) Eos # (Auto) Baso # (Auto) D-Dimer Quant (PE/DVT) Sodium Potassium Chloride Carbon Dioxide BUN Creatinine Estimated Creat Clear Estimated GFR Glucose Lactate Calcium Total Bilirubin 0.9 Direct Bilirubin 0.5 GGT AST 66 H ALT 42 Alkaline Phosphatase 68 Total Creatine Kinase Total Protein 8.0 Albumin 4.3 Discharge Plan Discharge Disposition: Home, Self-Care Date of Admission: 12/15/22 13:52 Attending Provider on Discharge: Aria Dougherty Primary Care Provider: Provider,Not a Local Condition: Stable Anticipated Discharge Date/Time: 12/16/22 11:30 Discharge Medications: Continued atorvastatin 40 mg tablet 40 mg PO QHS calcium carbonate 500 mg calcium (1,250 mg) tablet 500 mg PO DAILY rivaroxaban 20 mg tablet 20 mg PO DAILY Rx Instructions: must administer with evening meal zolpidem 10 mg tablet 5 - 10 mg PO QHS PRN cholecalciferol (vitamin D3) 25 mcg (1,000 unit) capsule 25 mcg PO DAILY cyanocobalamin (vitamin B-12) 1,000 mcg capsule 1,000 mcg PO DAILY brimonidine 0.2 % drops 1 drp ophthalmic (eye) BID carboxymethylcellulose sodium 0.25 % dropperette 1 drp ophthalmic (eye) Q1H PRN fluticasone propionate [Allergy Relief (fluticasone)] 50 mcg/actuation spray,suspension 1 spray intranasal DAILY PRN Rx Instructions: administer into each nostril ipratropium bromide 17 mcg/actuation HFA aerosol inhaler 2 inh inhalation Q6H fluticasone propion-salmeterol [Advair Diskus] 250-50 mcg/dose blister with device 1 inh inhalation BID gabapentin 300 mg capsule 600 mg PO BID Discharge Orders: Discharge Order (Routine); Ordered 12/16/22 Ordered By: Aria Dougherty Patient Education: Fall Prevention (DC), Alcohol Dependence (DC) Additional Instructions: See your PCP at the [facility] in 7-10 days. No alcohol until your followup to recheck your liver function. Activity Level: Activity as Tolerated and No strenuous activity Discharge Diet: Regular Follow Up Appointments: Provider,Not a Local [Primary Care Provider] - (Patient is seen at the [facility] (unsure of PCP's name). Please call [phone] to schedule an appt with his PCP in 7-10 days for hospital f/u and recheck of LFTs Tried to make an appointment for this patient, but the system won't allow anyone but the person themselves to make appointments.) Forms: [employer] Info Instructions
[2022-12-16] MEDS: BUDESONIDE 0.5 MG/2ML NEB NEB (11:13)
[2022-12-16] MEDS: CYANOCOBALAMIN (VITAMIN B-12) 500 MCG TABLET 1000 MCG PO (11:13)
[2022-12-16] MEDS: BRIMONIDINE TARTRATE 0.2% OPHTH 1 DROP EYE-BOTH (11:13)
[2022-12-16] MEDS: MULTIVITAMIN/MINERALS 1 TABLET 1 TAB PO (11:14)
[2022-12-16] MEDS: GABAPENTIN 300 MG CAPSULE 600 MG PO (11:14)
--- NOTE | 2022-12-16 12:00 | PC.SOCIAL ---
Discharge planning: Met with pt regarding d/c plan. Pt states he will be returning home with and dtr at discharge. Pt states he is independent at home and dtr is caregiver for . PT has no concerns about discharge. Pt refused information on alcohol treatment programs and stated, I do not have a problem with alcohol. Pt states he drinks 2-3 glasses of alcohol a few times a week. Pt requested social media executive contact the [facility] officer to request transportation home by [place] van. Called [facility] officer at [phone] and left message requesting call back regarding pt request for transportation home today. skid worker to follow up as needed.
--- NOTE | 2022-12-16 13:00 | PC.NURSE ---
AVS reviewed. Patient vitally stable. PIV's removed. Patient discharged to home and [facility]. All concerns addressed.
--- NOTE | 2022-12-16 14:13 | RESP.RT ---
Patient sitting up in chair, eating lunch. Appears comfortably, RR 20/minute, breathing regular/easy, on room air SaO2 90%. Good color, Capillary refill less than 3 seconds. Good clear voice, alert, orientated, answers questions appropriately. BBS diminished all monte[place] with fair air movement. Patient has history of COPD and states he takes his medications religiously; Advair, Pulmicort, Ipratropium inhalers. States has been taking them for years and they help allot.
== END 2022-12-16 13:00 | disposition home or self-care (01) | DRG 312 ==
LOC: ED 09:25 → MEDSURG 12:28
PROVIDERS: Admitting Provider Family Medicine; Emergency Provider Family Medicine; Visit Provider Family Medicine
DX: R55 Syncope and collapse (principal); M62.82 Rhabdomyolysis; Y90.6 Blood alcohol level of 120-199 mg/100 ml; F10.129 Alcohol abuse with intoxication, unspecified; R53.1 Weakness; S00.83XA Contusion of other part of head, initial encounter; W19.XXXA Unspecified fall, initial encounter; Y92.009 Unspecified place in unspecified non-institutional (private) residence as the place of occurrence of the external cause; J44.9 Chronic obstructive pulmonary disease, unspecified; I25.10 Atherosclerotic heart disease of native coronary artery without angina pectoris; Z86.718 Personal history of other venous thrombosis and embolism; Z79.01 Long term (current) use of anticoagulants; N40.0 Benign prostatic hyperplasia without lower urinary tract symptoms; F51.04 Psychophysiologic insomnia; F32.A Depression, unspecified; K76.0 Fatty (change of) liver, not elsewhere classified
CPT/HCPCS: 36415; 70450; 71046; 72125; 73070; 80048; 80053; 80076; 82077; 82550; 82977; 83605; 83880; 84484; 85025; 85379; 85610; 85730; 86140; 87631; 93005; 94640; 97110; 97116; 97162; 97165; 99285; A9153; A9270; J7030; J7626

== ENCOUNTER 2024-02-26 08:30 | Emergency (ER) | payer OTHER, MEDICARE, SELFPAY ==
[2024-02-26] VITALS (10 sets, daily range): BP systolic 168–215; BP diastolic 85–146; PULSE 65–94; RESP 20–24; TEMP 36.4; O2SAT 76–97; BMI 24.9
--- NOTE | 2024-02-26 08:48 | ED_ITS ---
HPI - General Adult General Time Seen by Provider: 08:48 Date Seen: 02/26/24 Chief complaint: Lower Extremity Swelling Stated complaint: pain, redness in both legs Time Seen by Provider: 02/26/24 08:47 Source: patient, RN notes reviewed and old records reviewed Mode of arrival: ambulatory Limitations: no limitations History of Present Illness HPI narrative: 70-year-old male with history of recurrent DVT who presents today with redness and swelling of the legs. Patient noted swelling in the right leg starting about 3 days ago, now in the left as well. Feels tight but no significant pain. Did feel short of breath walking into the ER but says that is not unusual, denies chest pain. He is on blood thinners and says he has not missed any doses. Denies any recent illness. Patient also has a history of COPD and reports that oxygen saturation is usually low, uses oxygen at home as needed. Related Data Home Medications ?Medication ?Instructions ?Recorded ?Confirmed brimonidine 0.2 % eye drops 1 drp ophthalmic (eye) BID 12/15/22 02/26/24 calcium carbonate 650 mg PO DAILY 12/15/22 02/26/24 carboxymethylcellulose sodium 0.25 1 drp ophthalmic (eye) Q1H PRN 12/15/22 02/26/24 % eye drops in a dropperette cholecalciferol (vitamin D3) 25 25 mcg PO DAILY 12/15/22 02/26/24 mcg (1,000 unit) capsule cyanocobalamin (vitamin B-12) 500 mcg PO DAILY 12/15/22 02/26/24 1,000 mcg capsule fluticasone 250 mcg-salmeterol 50 1 inh inhalation BID 12/15/22 02/26/24 mcg/dose blistr powdr for inhalation (Advair Diskus) fluticasone propionate 50 1 spray intranasal DAILY PRN 12/15/22 02/26/24 mcg/actuation nasal spray,suspension (Allergy Relief (fluticasone)) ipratropium bromide 17 2 inh inhalation Q6H 12/15/22 12/15/22 mcg/actuation HFA aerosol inhaler albuterol 90 mcg/actuation aerosol mcg inhalation 02/26/24 inhaler guaifenesin 200 mg tablet 200 mg PO TID 02/26/24 02/26/24 (Expectorant) sertraline 100 mg tablet 100 mg PO DAILY 02/26/24 02/26/24 tiotropium bromide 2.5 2 inh inhalation DAILY 02/26/24 02/26/24 mcg/actuation mist for inhalation (Spiriva Respimat) Previous Rx's ?Medication ?Instructions ?Recorded cephalexin 500 mg capsule 500 mg PO QID #30 caps 02/03/23 cephalexin 500 mg capsule 500 mg PO TID 7 days #21 caps 02/26/24 doxycycline monohydrate 100 mg 100 mg PO BID #10 caps 02/26/24 capsule furosemide 40 mg tablet (Lasix) 40 mg PO DAILY #7 tabs 02/26/24 Allergies Allergy/AdvReac Type Severity Reaction Status Date / Time Penicillins Allergy Severe Rash Verified 12/15/22 08:01 iodine Allergy Unknown Verified 02/26/24 08:42 lisinopril Allergy Unknown Verified 02/26/24 10:18 lobster Allergy Unknown Verified 02/26/24 10:18 metoprolol Allergy Unknown Verified 02/26/24 10:18 scallops Allergy Unknown Verified 02/26/24 10:18 shellfish derived Allergy Unknown Verified 02/26/24 08:42 simvastatin Allergy Unknown Verified 02/26/24 10:18 topiramate Allergy Unknown Verified 02/26/24 10:18 zolpidem Allergy Unknown Verified 02/26/24 10:18 [facility] Medical History Orthostatic hypotension ?I95.1 - Orthostatic hypotension (ICD-10) Chronic anticoagulation ?Z79.01 - jail (current) use of anticoagulants (ICD-10) BPH (benign prostatic hyperplasia) ?N40.0 - Benign prostatic hyperplasia without lower urinary tract symptoms (ICD-10) Insomnia ?G47.00 - Insomnia, unspecified (ICD-10) Depression ?F32.A - Depression, unspecified (ICD-10) Recurrent deep vein thrombosis (DVT) ?I82.409 - Acute embolism and thrombosis of unspecified deep veins of unspecified lower extremity (ICD-10) Hepatomegaly ?R16.0 - Hepatomegaly, not elsewhere classified (ICD-10) COPD (chronic obstructive pulmonary disease) ?J44.9 - Chronic obstructive pulmonary disease, unspecified (ICD-10) Coronary artery disease ?I25.10 - Atherosclerotic heart disease of [place] coronary artery without angina pectoris (ICD-10) Surgical History History of blepharoplasty ?Z98.890 - Other specified postprocedural states (ICD-10) Stented coronary artery ?Z95.5 - Presence of coronary angioplasty implant and graft (ICD-10) Social History Narrative: Rogerio lives near [facility] with Jocy and daughter Karen. Karen would be medical decision maker if needed. Rogerio requests DNR/DNI status. 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 He quit smoking in 2003 after his MN. Drinks 2-3 vodka drinks 3-4 nights/week, no history of withdrawal. Highest level of school completed/degree received: Associate degree: occupational, technical, vocational program Smoking Status: Former smoker Do you use any of these nicotine containing products: None Second hand tobacco smoke exposure: No How often do you have a drink containing alcohol: 2-3 times a week Alcohol type: hard liquor How many standard drinks containing alcohol do you have on a typical day: 3 or 4 How often do you have six or more drinks on one occasion: Never AUDIT-C Alcohol total score: 4 Non-prescribed substance use: denies use Caffeine: Yes service: Yes Exam Narrative: Exam Narrative: General: Well-developed and well-nourished, no acute distress Head: Atraumatic and normocephalic Eyes: Pupils are equal reactive, extraocular motions intact, conjunctiva clear ENT: External nose and ears are normal, posterior pharynx without erythema or exudate Neck: No midline cervical tenderness, full spontaneous range of motion the neck, trachea midline, no adenopathy Heart: Regular rate and rhythm no murmurs or thrills Lungs: Clear to auscultation bilaterally without wheezes or crackles Abdomen: Soft, nontender, nondistended with active bowel sounds Musculoskeletal: No tenderness, deformity. Marked right lower extremity edema and moderate left lower extremity edema. Mild erythema on the dorsum of the right foot but no warmth or tenderness. Neurologic: Awake, alert, and oriented x3, no gross focal neurologic deficits, cranial nerves intact as tested Psych: Mood and affect are appropriate Skin: No rashes Const: Vital Signs, click to edit/add: Vital Signs - 24 hr 02/26/24 08:35 02/26/24 08:45 02/26/24 09:02 Temperature 97.6 F Pulse Rate Pulse Rate [Pulse Oximeter] 65 Respiratory Rate 20 Blood Pressure Blood Pressure [Ri ght Upper Arm] 168/85 H Pulse Oximetry 84 L 94 94 Oxygen Delivery Me thod Room Air Nasal Cannula Nasal Cannula Oxygen Flow Rate 1 1 02/26/24 10:08 02/26/24 10:25 02/26/24 10:38 Temperature Pulse Rate 94 79 Pulse Rate [Pulse Oximeter] 82 Respiratory Rate 24 Blood Pressure 192/146 H 186/104 H Blood Pressure [Ri ght Upper Arm] 215/131 H Pulse Oximetry 93 76 L 96 Oxygen Delivery Me thod Nasal Cannula Room Air Nasal Cannula Oxygen Flow Rate 1 2 02/26/24 10:45 02/26/24 10:53 Temperature Pulse Rate 83 85 Pulse Rate [Pulse Oximeter] Respiratory Rate Blood Pressure 182/131 H Blood Pressure [Ri ght Upper Arm] Pulse Oximetry 97 97 Oxygen Delivery Me thod Nasal Cannula Nasal Cannula Oxygen Flow Rate 2 2 Course Course ED Course: Patient seen and examined, reviewed prior more urgency department visit from January 2023 which was for cellulitis of the right leg. Patient is concerned about cellulitis Skin. He has bilateral lower extremity swelling with long with some shortness of breath. Has a history of COPD and uses oxygen at home O2 as needed and at night. Marked right lower extremity edema and moderate left lower extremity edema, pitting on both sides. Mild erythema on the dorsum of the right foot but no warmth. This could represent mild early cellulitis but concern for heart failure given shortness of breath bilateral lower extremity swelling, recurrent DVT is possible but unlikely given anticoagulation status. Reevaluation(s) Time of Reevaluation #1: 10:07 Reevaluation #1: Labs ordered and independently interpreted by me with normal CBC, normal basic panel. Time of Reevaluation #2: 11:17 Reevaluation #2: Labs ordered and independently interpreted by me with elevated BNP at 4410. Radiology interpretation of lower extremity ultrasound reviewed, no DVT. CT scan of the chest independently interpreted by me with aortic dilation, no central pulmonary embolism, at the emphysema, bilateral atelectasis. Time of Reevaluation #3: 11:50 Reevaluation #3: Reviewed radiology interpretation of CT scan which is negative for pulmonary em boli or other acute findings. Patient will be started on doxycycline and Keflex for possible cellulitis of the right leg as well as Lasix for his bilateral lower extremity edema and should follow up with primary care in 1 week. Vital Signs Vital signs: Initial Vital Signs Temperature 97.6 F 02/26/24 08:35 Temperature Source Temporal Artery Scan 02/26/24 08:35 Pulse Rate 65 02/26/24 08:35 Respiratory Rate 20 02/26/24 08:35 Blood Pressure 168/85 H 02/26/24 08:35 Blood Pressure Mean 112 H 02/26/24 08:35 Blood Pressure Position Sitting 02/26/24 08:35 Pulse Oximetry 84 L 02/26/24 08:35 Oxygen Delivery Method Room Air 02/26/24 08:35 Vital Signs Temperature 97.6 F 02/26/24 08:35 Pulse Rate 65 02/26/24 08:35 Respiratory Rate 20 02/26/24 08:35 Blood Pressure 168/85 H 02/26/24 08:35 Pulse Oximetry 84 L 02/26/24 08:35 Oxygen Delivery Method Room Air 02/26/24 08:35 Temperature 97.6 F 02/26/24 08:35 Pulse Rate 85 02/26/24 10:53 Respiratory Rate 24 02/26/24 10:08 Blood Pressure 182/131 H 02/26/24 10:53 Pulse Oximetry 97 02/26/24 10:53 Oxygen Delivery Method Nasal Cannula 02/26/24 10:53 Oxygen Flow Rate 2 02/26/24 10:53 Medications Administered Medications: Discontinued Medications Generic Name Dose Route Start Last Admin Trade Name Freq PRN Reason Stop Dose Admin Diphenhydramine HCl 50 mg 02/26/24 09:07 02/26/24 09:43 Diphenhydramine 50 Mg/Ml Inj IVP 02/26/24 09:08 50 mg ONCE ONE Administration Hydrocortisone Sodium Succinate 200 mg 02/26/24 09:07 02/26/24 09:49 Hydrocortisone Sod Succinate 50 Mg/Ml Inj IVP 02/26/24 09:08 200 mg ONCE ONE Administration Medical Decision Making Lab Data Labs: Lab Results 02/26/24 02/26/24 Range/Units 09:09 09:35 WBC 3.51 L (4.50-11.00) K/uL RBC 4.73 (4.30-5.90) m/uL Hgb 13.9 (13.5-17.5) gm/dL Hct 44.9 (37.0-53.0) % MCV 95 (80-100) fL MCH 29 (26-34) pg MCHC 31 L (32-36) gm/dL RDW Coeff of Kyung 18.6 H (11.5-15.5) % Plt Count 148 (140-440) K/uL Neut % (Auto) 57.6 (42.0-72.0) % Lymph % (Auto) 26.2 (20-44) % Mercer % (Auto) 10.8 (0.0-11.0) % Eos % (Auto) 5.4 (0.0-7.0) % Baso % (Auto) 0.0 (0.0-3.0) % Neut # (Auto) 2.00 (1.7-7.0) K/uL Lymph # (Auto) 0.90 (0.90-2.90) K/uL Mercer # (Auto) 0.40 (0.00-0.90) K/UL Eos # (Auto) 0.20 (0.00-0.50) K/uL Baso # (Auto) 0.00 (0.00-0.30) K/uL Abs Immat Gran (auto) 0.00 (0.00-0.30) K/uL Imm/Tot Granulo (auto) 0.0 % Sodium 138 (135-149) mmol/L Potassium 4.4 (3.6-5.1) mmol/L Chloride 100 (96-114) mmol/L Carbon Dioxide 30 (20-32) mmol/L Anion Gap 8 (7-15) mEq/L BUN 15 (7-30) mg/dL Creatinine 1.2 (0.5-1.5) mg/dL Estimated Creat Clear 47.43 Estimated GFR 62 ml/min Glucose 88 (60-115) mg/dL Calcium 8.9 (8.4-10.6) mg/dL Magnesium 2.2 (1.5-2.6) mg/dL NT-Pro-B Natriuret Pep 4410 pg/mL POC Troponin I 0.00 L (0.01-0.04) ng/ml Discharge Plan Discharge Clinical Impression: Cellulitis of leg, right, Bilateral edema of lower extremity Patient Disposition: Home, Self-Care Condition: Stable Instructions: Cellulitis (ED), Leg Edema (ED) Additional Instructions: Take antibiotics prescribed Start taking Lasix for your leg swelling. Keep the legs elevated as much as possible. Follow-up with your primary care provider in 1 week Activity Level: Activity as Tolerated Discharge Diet: Regular Prescriptions: New cephalexin 500 mg capsule 500 mg PO TID 7 Days Qty: 21 0RF doxycycline monohydrate 100 mg capsule 100 mg PO BID Qty: 10 0RF furosemide [Lasix] 40 mg tablet 40 mg PO DAILY Qty: 7 0RF No Action albuterol 90 mcg/actuation aerosol inhalation guaifenesin [Expectorant] 200 mg tablet 200 mg PO TID sertraline 100 mg tablet 100 mg PO DAILY Spiriva Respimat 2.5 mcg/actuation mist 2 inh inhalation DAILY calcium carbonate 500 mg calcium (1,250 mg) tablet 650 mg PO DAILY cholecalciferol (vitamin D3) 25 mcg (1,000 unit) capsule 25 mcg PO DAILY cyanocobalamin (vitamin B-12) 1,000 mcg capsule 500 mcg PO DAILY brimonidine 0.2 % drops 1 drp ophthalmic (eye) BID carboxymethylcellulose sodium 0.25 % dropperette 1 drp ophthalmic (eye) Q1H PRN fluticasone propionate [Allergy Relief (fluticasone)] 50 mcg/actuation spray,suspension 1 spray intranasal DAILY PRN Rx Instructions: administer into each nostril ipratropium bromide 17 mcg/actuation HFA aerosol inhaler 2 inh inhalation Q6H fluticasone propion-salmeterol [Advair Diskus] 250-50 mcg/dose blister with device 1 inh inhalation BID cephalexin 500 mg capsule 500 mg PO QID Qty: 30 0RF Follow Up/Referrals: Provider,Not a Local [Primary Care Provider] - Stand Alone Forms: [facility] Info Instructions
--- NOTE | 2024-02-26 09:07 | CRLHL7_ITS ---
For Patients: As a result of the Century Cures Act, medical imaging exams and procedure reports are released immediately into your electronic medical record. You may view this report before your referring provider. If you have questions, please contact your health care provider. INDICATION: Bilateral asymmetrical, right greater than left, lower extremity swelling. COMPARISON: None available. TECHNIQUE: Static and compression grayscale and spectral (including color) Doppler ultrasound of the bilateral lower extremity. FINDINGS: Deep veins: The bilateral common femoral, deep femoral, superficial femoral, popliteal, posterior tibial, and peroneal veins are patent and free of clot. Superficial veins: The imaged bilateral great saphenous veins are patent and free of clot. Extravascular findings: No significant incidental findings. IMPRESSION: No evidence of DVT in either lower extremity. Dictated by Mariano Cardenas MD @ 02/26/2024 11:14:00 AM (Electronically Signed)
--- NOTE | 2024-02-26 09:07 | CRLHL7_ITS ---
For Patients: As a result of the Century Cures Act, medical imaging exams and procedure reports are released immediately into your electronic medical record. You may view this report before your referring provider. If you have questions, please contact your health care provider. INDICATION: Short of breath. History of DVT. Leg swelling. COMPARISON: [address] angiogram chest. TECHNIQUE: 95 mL Isovue-370 IV contrast. FINDINGS: Adequate bolus timing. No pulmonary embolism filling defects. Upper normal caliber of the central pulmonary arteries. No right heart strain finding. Incomplete visualization of presumed parenchymal cyst lateral left kidney. Coronal prominence of the collecting system and both upper poles. No nephrolithiasis. Atherosclerotic vascular calcification of aorta and coronary arteries. No pathologically enlarged adenopathy although a couple of upper normal bilateral hilar nodes and AP window nodes in the mediastinum. Central airways are patent. Emphysematous lung parenchymal with upper lobe predominance. Diffuse hazy ground-glass and somewhat low lung volumes. No superimposed pneumonia. No pleural effusion or pneumothorax. No acute significant bone finding. Minor symmetric gynecomastia. IMPRESSION: No pulmonary embolism. Moderate emphysema. Prominent atherosclerosis including coronaries. Please note that all CT scans at this facility use dose modulation, iterative reconstruction, and/or weight-based dosing when appropriate to reduce radiation dose to as low as reasonably achievable. Dictated by Fito Faustin MD @ 02/26/2024 11:48:30 AM (Electronically Signed)
--- OUTSIDE RECORDS SUMMARY | 2024-02-26 09:12 | XMS_ITS | Referral Summary ---
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 For routine questions regarding patient records, call [phone] during business hours, M-F 8:00 AM - 5:00 PM Central Time. Record requests for emergency care only can be directed to [phone] at any time.[facility] Encounters Date Type Department Care Team Description 12/10/2023 10:15 AM CDT Office Visit Department of Ophthalmology in [place], [place] [address] [place] [address] Cipriano Whittaker M.D. Membrane Macula Epiretinal Bilateral (Primary Dx); Subluxation Lens Right from Last 3 Months Allergies Active Allergy Reactions Criticality Noted Date Comments Fish Containing Products Rash 12/04/2009 Lisinopril Rash 04/08/2008 Lobster Nausea And Vomiting 07/12/2007 Metoprolol Shortness of breath 04/08/2008 Penicillins Rash 07/09/2023 Scallops Rash,Nausea And Vomiting 07/12/2007 Simvastatin Itching 04/06/2006 Medications Medication Sig Dispensed Refills Start Date End Date Status tiotropium (SPIRIVA RESPIMAT) 2.5 mcg/actuation inhaler INHALE TWO PUFFS BY INHALATION EVERY DAY FOR COPD 02/19/2023 Active sertraline (ZOLOFT) 100 mg tablet Take 1.5 tablets by mouth daily. 12/27/2022 Active rivaroxaban (XARELTO) 20 mg tablet 20 mg. 02/10/2023 Active polyvinyl alcohol (NU-TEARS) 1.4 % ophthalmic solution Administer into affected eye(s) 4 (four) times a day as needed. Active latanoprost (XALATAN) 0.005 % ophthalmic solution Administer 1 drop into both eyes at bedtime. Active ipratropium HFA (ATROVENT HFA) 17 mcg/actuation inhaler Inhale 2 puffs every 6 (six) hours as needed. Active hydroCHLOROthiazide (HYDRODIURIL) 12.5 mg tablet Take 1 tablet by mouth daily. 02/19/2023 Active gabapentin (NEURONTIN) 300 mg capsule 600 mg. 01/08/2023 Active cholecalciferol, vitamin D3, 25 mcg (1,000 Unit) tablet Take 1 tablet by mouth daily. 02/19/2023 Active calcium carbonate 650 mg (260 mg calcium) tablet,chewable Chew 1 tablet daily. Active buPROPion (WELLBUTRIN SR) 150 mg 12 hr tablet Take 150 mg by mouth. Active budesonide-formotero L (SYMBICORT) 160-4.5 mcg/actuation inhaler Inhale 2 puffs every 12 (twelve) hours. Active brimonidine (ALPHAGAN) 0.2 % ophthalmic solution Administer 1 drop into both eyes 2 (two) times a day. 03/18/2023 Active atorvastatin (LIPITOR) 40 mg tablet Take 1 tablet by mouth daily. 02/19/2023 Active albuterol 90 mcg/actuation inhaler INHALE 2 PUFFS BY INHALATION EVERY 4 HOURS NEEDED FOR SHORTNESS OF BREATH 02/19/2023 Active cyanocobalamin (VITAMIN B12) 1,000 mcg tablet Take 1 tablet by mouth daily. 02/19/2023 Active trazodone HCl (TRAZODONE ORAL) Take 100 mg by mouth at bedtime. Active NITROGLYCERIN SL Place 0.4 mg under the tongue. Active amLODIPine (NORVASC) 10 mg tablet Take 10 mg by mouth daily. Active Active Problems Problem Noted Date Diagnosed Date Personal History Of Other Venous Thrombosis And Embolism 07/19/2023 Nicotine Dependence Cigarettes In Remission 07/01 Coronary Stent Status Post 07/19/2023 Subluxation Lens Right 07/09/2023 Apnea Sleep Obstructive 07/09/2023 Chronic Obstructive Pulmonary Disease 07/09/2023 Overview: Apr 25, 2018 Entered By: ANJEL DUONG Comment: FEV1/FVC (2009) 2.00/3.13. FEV1 70% pred. FEV1% 64.Feb 20, 2023 Entered By: EDUARDO PRATT Comment: Moderatre COPD Hyperlipidemia 07/09/2023 Hypertension Essential Primary 07/09/2023 Hypertension Pulmonary 07/09/2023 Post Traumatic Stress Disorder Chronic Intraocular Lens Implant Status Post 07/09/2023 Membrane Macula Epiretinal Bilateral 07/09/2023 Detachment Vitreous Posterior Bilateral 07/09/20 23 Primary Open-Angle Glaucoma Mild Stage Bilateral 07/09/2023 Atherosclerotic Heart Diseas e Of [place] Coronary Artery Without Angina Pectoris 08/30/2003 Overview: Apr 22, 2018 Entered By: ANJEL DUONG Comment: S/P stents to RCA and Cx in 2003 (ANW)Apr 25, 2018 Entered By: ANJEL DUONG Comment: Cath (2011) No significant lesions.Apr 25, 2018 Entered By: ANJEL DUONG Comment: Rest MPS (2016) No ischemia. EF 58%.Apr 25, 2018 Entered By: ANJEL DUONG Comment: Echo (2016) EF 60-65%. Normal chambers and valves.Feb 20, 2023 Entered By: EDUARDO PRATT Comment: 2019 Stress Thalium: 1. No ischemia demonstrated. Immunizations Name Administration Dates Next Due H1N1 All Forms 09/12/2009 Social History Tobacco Use Types Packs/Day Years Used Date Smoking Tobacco: Former Cigarettes 1 45 0 08/1958 - 08/2003 Smokeless Tobacco: Never Tobacco Cessation:Counseling Given: Not Answered Alcohol Use Standard Drinks/Week Comments Yes 2 (1 standard drink = 0.6 oz pur e alcohol) Nutrition Answer Date Recorded Nutrition: EVOO Fat Source Unknown 06/11 Nutrition: Servings of Fruits/Vegetables per Day Not on file 06/11/2023 Dental Answer Date Recorded Dental: Regular Dentist Unknown 06/11/20 23 Sex and Gender Information Value Date Recorded Sex Assigned at Not on file Gender Identity Not on file Sexual Orientation Not on file Last Filed Vital Signs Vital Sign Reading Time Taken Comments Blood Pressure 153/98 08/02/2023 12:26 PM PHYSICAL EDUCATION DEPARTMENT CHAIR Pulse 81 08/02/2023 12:28 PM PHYSICAL EDUCATION DEPARTMENT CHAIR Temperature 36.6 ??C (97.9 ??F) 08/02/2023 12:[address] Respiratory Rate 17 08/02/2023 12:28 PM PHYSICAL EDUCATION DEPARTMENT CHAIR Oxygen Saturation 97% 08/02/2023 12:28 PM PHYSICAL EDUCATION DEPARTMENT CHAIR Inhaled Oxygen Concentration - - Weight 76 kg (167 lb 8.8 oz) 08/02/2023 7:56 AM PHYSICAL EDUCATION DEPARTMENT CHAIR Height 167 cm (5' 5.75) 08/02/2023 7:56 AM PHYSICAL EDUCATION DEPARTMENT CHAIR Body Mass Index 27.25 08/02/2023 7:56 AM PHYSICAL EDUCATION DEPARTMENT CHAIR Plan of Treatment Not on file Medical Devices Implanted Type Area Wire Rigger Device Identifier Shelf Expiration Date Model / Serial / Lot Cardiac Stent Cardiac Stent Chest Description:x3 Lens Env [id number] +21.0d - [id number] - [id number] Implanted:Qty : 1 on 08/02/2023 by Cipriano Whittaker M.D. at [facility] Ocular Lens Right: Eye [employer] 04/29/2026 [id number] / [id number] / Explanted Type Area Wire Rigger Device Identifier Shelf Expiration Date Model / Serial / Lot Ocular Lens Explanted:Qty: 1 on 08/02/2023 by Ming Fernandez M.D. at [facility] Ocular Lens Eye Procedures Procedure Name Priority Date/Time Associated Diagnosis Comments OPTICAL COHERENCE TOMOGRAPHY - MACULA/RETINA - OU - BOTH EYES Routine 12/10/2023 10:38 AM CDT Subluxation Lens Right BASIC METABOLIC PANEL, S/P Routine 07/19/2023 9:58 AM PHYSICAL EDUCATION DEPARTMENT CHAIR Preanesthetic Medical Exam Atherosclerotic Heart Disease Of [place] Coronary Artery Without Angina Pectoris Hyperlipidemia Hypertension Essential Primary from Last 3 Months or Most Recently Relevant to Health Maintenance Results * Optical Coherence Tomography - Macula/Retina - OU - Both Eyes (12/10/2023 10:38 AM CDT) Narrative OPHTHALMOLOGY IMAGING EXAM - 12/10/2023 10:38 AM CDT See note from visit on 12/10/2023. Cipriano Whittaker M.D. OPHTH TOMOGRAPHY OPHTHALMOLOGY IMAGING EXAM * (ABNORMAL) Basic Metabolic Panel (07/19/2023 9:58 AM PHYSICAL EDUCATION DEPARTMENT CHAIR) Potassium, S 4.0 3.6 - 5.2 mmol/L 07/19/2023 10:53 AM PHYSICAL EDUCATION DEPARTMENT CHAIR DTL Sodium, S 139 135 - 145 mmol/L 07/19/2023 10:53 AM PHYSICAL EDUCATION DEPARTMENT CHAIR DTL Chloride, S 98 98 - 107 mmol/L 07/19/2023 10:53 AM PHYSICAL EDUCATION DEPARTMENT CHAIR DTL Bicarbonate, S 31(H) 22 - 29 mmol/L 07/19/2023 10:53 AM PHYSICAL EDUCATION DEPARTMENT CHAIR DTL Anion Gap 10 7 - 15 07/19/2023 10:53 AM PHYSICAL EDUCATION DEPARTMENT CHAIR DTL BUN (Blood Urea Nitrogen), S 14 8 - 24 mg/dL 07/19/2023 10:53 AM PHYSICAL EDUCATION DEPARTMENT CHAIR DTL Creatinine 1.34 0.74 - 1.35 mg/dL 07/19/2023 10:53 AM PHYSICAL EDUCATION DEPARTMENT CHAIR DTL Estimated GFR (eGFR) 55(L) >=60 mL/min/BSA 07/19/2023 10:53 AM PHYSICAL EDUCATION DEPARTMENT CHAIR DTL Comment: Estimated GFR calculated using the 2020 CKD_EPI creatinine equation. Calcium, Total, S 9.3 8.8 - 10.2 mg/dL 07/19/2023 10:53 AM PHYSICAL EDUCATION DEPARTMENT CHAIR DTL Glucose, S 101 70 - 140 mg/dL 07/19/2023 10:53 AM PHYSICAL EDUCATION DEPARTMENT CHAIR DTL Blood (Blood, Venous) 07/19/2023 9:58 AM PHYSICAL EDUCATION DEPARTMENT CHAIR 07/19/2023 10:34 AM PHYSICAL EDUCATION DEPARTMENT CHAIR Verona Parra APRN C.N.P., M.S.N. LAB BL OOD ADD-ON [facility] [address] [place] [address], [facility] DTL [facility] [address] [place] [address] from Last 3 Months or Most Recently Relevant to Health Maintenance [address] [place] [phone]
--- OUTSIDE RECORDS SUMMARY | 2024-02-26 09:12 | XMS_ITS | Encounter Summary ---
Author Organization [facility] Address [address] [place] [address] Care Team Providers Care Nut Sifter Name Role Phone Unavailable Primary Care Provider Unavailabl e Reason for Referral * Outpatient (Routine) - Pending Review Specialty Diagnoses / Procedures Referred By Dung pablo Referred To Contact Ophthalmology Cipriano Whittaker M.D. [address] [place] [address] [facility] Region Referral ID Status Reason Start Date Expiration Date V isits Requested Visits Authorized [id number] Pending Review 12/10/2023 06/10/2025 1 1 Scheduling Instructions 6 MO FU, DIL/OCT OU Reason for Visit * Reason Comments Post-op Follow-up * Outpatient (Routine) - Pending Review Specialty Diagnoses / Procedures Referred By Dung pablo Referred To Contact Ophthalmology Cipriano Whittaker M.D. [address] [place] [address] [facility] Region Referral ID Status Reason Start Date Expiration Date V isits Requested Visits Authorized [id number] Pending Review 09/10/2023 09/09/2026 1 1 Encounter Details Date Type Department Care Team (Latest Contact Info) Description 12/10/2023 10:15 AM CDT Office Visit Department of Ophthalmology in [place], [place] [address] [place] [address] Cipriano Whittaker M.D. [address] [place] [phone] Membrane Macula Epiretinal Bilateral (Primary Dx); Subluxation Lens Right Social History Tobacco Use Types Packs/Day Years Used Date Smoking Tobacco: Former Cigarettes 1 45 0 08/1958 - 08/2003 Smokeless Tobacco: Never Alcohol Use Standard Drinks/Week Comments Yes 2 (1 standard drink = 0.6 oz pur e alcohol) Nutrition Answer Date Recorded Nutrition: EVOO Fat Source Unknown 06/11 Nutrition: Servings of Fruits/Vegetables per Day Not on file 06/11/2023 Dental Answer Date Recorded Dental: Regular Dentist Unknown 06/11/20 Sex and Gender Information Value Date Recorded Sex Assigned at Not on file Gender Identity Not on file Sexual Orientation Not on file documented as of this encounter Progress Notes * Cipriano Whittaker M.D. - 12/10/2023 10:15 AM CDT #1 Subluxation Lens Right Vision loss for 3 months or so #2 Intraocular Lens Implant Status Post #3 Membrane Macula Epiretinal Bilateral #4 Detachment Vitreous Posterior Bilateral RDWs discussed #5 Primary Open-Angle Glaucoma Mild Stage Bilateral Using drops Testing 12/10/2023 OCT Macula: Right eye: RPE changes, ERM Left eye: RPE changes, ERM 12/10/2023 Plan: Subluxed lens right eye. Discussed options and he wishes it repaired. Now status post 25g PPV/IOLx/SSIOL/CTR removal right eye 08/13/23 (08/02/23 Remedios/Jim) POM4 Doing well. Off PO drops Call if decreased vision, increased photophobia, pain, discharge or increased redness occurs. Follow-up retina 6 months retina documented in this encounter Plan of Treatment Scheduled Orders Name Type Priority Associated Diagnoses Orde r Schedule Optical Coherence Tomography - Macula/Retina - OU - Both Eyes Ophthalmology Routine Subluxation Lens Right Membrane Macula Epiretinal Bilateral Expected: 06/10/2024, Expires: 03/10/2025 Scheduled Referrals Name Type Priority Associated Diagnoses Order Schedule Ophthalmology office visit (clinic) Outpatient Referral Routine Expected: 06/10/2024, Expires: 03/10/2025 documented as of this encounter Procedures Procedure Name Priority Date/Time Associated Diagnosis Comments OPTICAL COHERENCE TOMOGRAPHY - MACULA/RETINA - OU - BOTH EYES Routine 12/10/2023 10:38 AM CDT Subluxation Lens Right documented in this encounter Results * Optical Coherence Tomography - Macula/Retina - OU - Both Eyes (12/10/2023 10:38 AM CDT) Narrative OPHTHALMOLOGY IMAGING EXAM - 12/10/2023 10:38 AM CDT See note from visit on 12/10/2023. Cipriano Whittaker M.D. OPHTH TOMOGRAPHY OPHTHALMOLOGY IMAGING EXAM documented in this encounter Visit Diagnoses Diagnosis Membrane Macula Epiretinal Bilateral- Primary Subluxation Lens Right documented in this encounter
--- OUTSIDE RECORDS SUMMARY | 2024-02-26 09:12 | XMS_ITS | Encounter Summary ---
Author Name [facility] Organization [facility] Address [address] [place] [address] Care Team Providers Care Orchid Hand Name Role Phone MASHAVERÓNICA SantiagoABDELRAHMAN Primary Care Provider Unav ailable Insurance Providers: All historical and current Section Date Range: From patient's date of to the date document was created. This section includes the names of all active insurance providers for the patient. Insurance Provider Type of Coverage Plan Name Start of Policy Coverage End of Policy Coverage Group Number Member ID Insurance Provider's Telephone Number Policy Rees's Name Patient's Relationship to Policy Rees MEDICARE (WNR) MEDICARE (M) PART A Sep 30, 2010 PART A [phone] Isaac IGLESIAS PATIENT Selected Encounter This section includes the information on record at [place] for the Encounter. Date/Time Encounter Type Encounter Description Reason Pro vider Source Mar 03, 2023 05:46 AM Outpatient Encounter PRIMARY CARE/MEDICINE IHE Encounter Template Text not used by ME Plan of Treatment: Future Appointments (+ 6 months) and Future Tests (+/- 45 days) The Plan of Treatment section includes future care activities for the patient from all [facility] treatment[facility]ilities. This section includes future appointments and future orders which are active, pending or scheduled. Future Appointments This section includes appointments that were scheduled to occur 6 months from the date of the Encounter, up to a maximum of 20 appointments. The data comes from all [facility]. Appointment Date/Time Appointment Type Appointme nt Facility Name Mar 08, 2023 06:30 PM [facility] Mar 26, 2023 09:00 AM AMBULATORY - PSYCHIATRY [facility] Apr 08, 2023 08:20 AM AMBULATORY [facility] MEDICINE [facility] Apr 08, 2023 09:30 AM [facility] Apr 08, 2023 10:45 AM [facility] May 18, 2023 08:20 AM AMBULATORY - SURGERY [facility] Jun 02, 2023 08:30 AM AMBULATORY - PSYCHIATRY [facility] Jun 08, 2023 08:30 [facility] Jun 11, 2023 09:00 [facility] Jun 21, 2023 09:00 AM [facility] Jun 22, 2023 08:15 AM [facility] Jun 28, 2023 08:30 AM AMBULATORY - SURGERY [facility] Jul 01, 2023 12:30 PM AMBULATORY - MEDICINE [facility] Jul 27, 2023 08:30 PM AMBULATORY - MEDICINE [facility] Sep 03, 2023 09:00 AM AMBULATORY - PSYCHIATRY [facility] Active, Pending, and Scheduled Orders This section includes a listing of several types of active, pending, and scheduled orders, including clinic medications orders, diagnostic test orders, procedure orders and consult orders; where the start date of the order is 45 days before the date of the Encounter or 45 days after the date of theEncounter. The data comes from all [facility]. Test Date/Time Test Type Test Details Facility Name Apr 09, 2023 09:25 AM Laboratory - Microbiology Order CULTURE & SUSCEPTIBILITY BLOOD SP ONCE [facility] Lab Results: +/- 30 days of the encounter This section includes the Chemistry and Hematology Lab Results on record with [facility] for the patient. Radiology Reports and Pathology Reports are provided separately, in subsequent sections. Lab Results This section contains the Chemistry/Hematology Results that were resulted 30 days before or 30 daysafter the date of the Encounter. Date/Time Source Result Type Result - Unit Interpretation Reference Range Comment Feb 19, 2023 11:19 AM [facility] BNP Specimen Type: PLASMA No comment entered. Ordering Provider: YIN PRATT Report Released Date/Time: Feb 19, 2023 10:06 AM Reporting Lab: [facility] [id number] Performing Lab: [facility] [phone] BNP 766 pg/mL H See_Commen t Feb 19, 2023 11:19 AM [facility] B 12 Specimen Type: SERUM No comment entered. Ordering Provider: YIN PRATT Report Released Date/Time: Feb 19, 2023 10:06 AM Reporting Lab: [facility] [phone] Performing Lab: [facility] [address] B 12 871 pg/mL H 213-816 Feb 19, 2023 11:19 AM [facility] CBC Specimen Type: BLOOD No comment entered. Ordering Provider: YIN PRATT Report Released Date/Time: Feb 19, 2023 10:06 AM Reporting Lab: [facility] [phone] Performing Lab: [facility] [phone] WBC 5.44 10*3/uL 4.0-11.0 RBC 4.73 10*6/uL 4.6-6.2 HGB 13.9 g/dL 13.5-17.9 HCT 45.5 41-54 MCV 96.2 fL 80-100 MCH 29.4 pg 27-33 MCHC 30.5 g/dL L 32.0-37.5 PLT 203 10*3/uL 150-400 MPV 9.8 fL 7.4-10.4 RDW 17.2 H 11.5-14.5 Feb 19, 2023 11:19 AM [facility] FOLATE Specimen Type: SERUM No comment entered. Ordering Provider: YIN PRATT Report Released Date/Time: Feb 19, 2023 10:06 AM Reporting Lab: [facility] [phone] Performing Lab: [facility] [phone] FOLATE 6.8 ng/mL L See_Commen t Feb 19, 2023 11:19 AM [facility] COMPREHENSIVE METABOLIC PANEL+MG Specimen Type: PLASMA No comment entered. Ordering Provider: YIN PRATT Report Released Date/Time: Feb 19, 2023 10:06 AM Reporting Lab: [facility] [phone] Performing Lab: [facility] [phone] CREATININE 1.2 mg/dL 0.7-1.2 UREA NITROGEN 13 mg/dL 8-26 GLUCOSE 95 mg/dL 70-100 SODIUM 139 mmol/L 136-145 POTASSIUM 4.3 mmol/L 3.5-5.1 CHLORIDE 101 mmol/L 98-107 CO2 30 mmol/L H 22-29 CALCIUM 9.5 mg/dL 8.4-10.2 PROTEIN,TOTAL 8.5 g/dL H 6.0-8.3 ALBUMIN 4.4 g/dL 3.5-5.2 BILIRUBIN, TOTAL 0.8 mg/dL 0.2-1.2 MAGNESIUM 2.2 mg/dL 1.6-2.6 ANION GAP 8 mmol/L 5-15 ALKALINE PHOSPHATASE 119 U/L 40-150 ALT/SGPT 13 U/L See_Commen t AST/SGOT 23 U/L See_Commen t .CREAT EGFR(CKD-EPI) 62 See_Commen t Feb 19, 2023 11:19 AM [facility] METHYLMALONIC ACID Specimen Type: SERUM No comment entered. Ordering Provider: YIN PRATT Report Released Date/Time: Feb 19, 2023 12:45 PM Reporting Lab: [facility] [phone] Performing Lab: [facility] [phone] METHYLMALONIC ACID 255 nmol/L 0-400 Feb 19, 2023 11:19 AM [facility] HOMOCYSTEINE Specimen Type: SERUM No comment entered. Ordering Provider: YIN PRATT Report Released Date/Time: Feb 19, 2023 12:45 PM Reporting Lab: [facility] [phone] Performing Lab: [facility] [phone] HOMOCYSTEINE 14.2 umol/L 5.1-15.4 Feb 09, 2023 07:37 AM [facility] CREATININE(INCLUDES EGFR) Specimen Type: PLASMA No comment entered. Ordering Provider: KERRI LONDON IN Y Report Released Date/Time: May 18, 2022 01:02 PM Reporting Lab: [facility] [phone] Performing Lab: [facility] [phone] CREATININE 1.1 mg/dL 0.7-1.2 .CREAT EGFR(CKD-EPI) 69 See_Commen t Feb 09, 2023 07:37 AM [facility] AST/SGOT Specimen Type: PLASMA No comment entered. Ordering Provider: KERRI LONDON IN Y Report Released Date/Time: May 18, 2022 01:02 PM Reporting Lab: [facility] [phone] Performing Lab: [facility] [phone] AST/SGOT 20 U/L See_Commen t Feb 09, 2023 07:37 AM [facility] ALT/SGPT Specimen Type: PLASMA No comment entered. Ordering Provider: KERRI LONDON IN Y Report Released Date/Time: May 18, 2022 01:02 PM Reporting Lab: [facility] [phone] Performing Lab: [facility] [phone] ALT/SGPT 11 U/L See_Commen t Feb 09, 2023 07:37 AM [facility] CBC Specimen Type: BLOOD No comment entered. Ordering Provider: KERRI LONDON IN Y Report Released Date/Time: May 18, 2022 01:02 PM Reporting Lab: [facility] [phone] Performing Lab: [facility] [phone] WBC 5.36 10*3/uL 4.0-11.0 RBC 4.50 10*6/uL L 4.6-6.2 HGB 13.3 g/dL L 13.5-17.9 HCT 42.7 41-54 MCV 94.9 fL 80-100 MCH 29.6 pg 27-33 MCHC 31.1 g/dL L 32.0-37.5 PLT 197 10*3/uL 150-400 MPV 10.3 fL 7.4-10.4 RDW 17.2 H 11.5-14.5 Social History: Smoking Status (Most current) and Tobacco Use (All prior to encounter date) This section includes the most current, and the historical, smoking and tobacco- related health factors from the [place] facility where the Encounter took place. Current Smoking Status This section includes the most current smoking, or tobacco-related health factor, from the [place] facility where the Encounter took place. Date/Time Current Smoking Status Comment Facil ity Aug 17, 2022 09:15 AM VA-TOBACCO FORMER USER [facility] Tobacco Use History This section includes a history of the smoking, or tobacco-related health factors, that were collected on or before the date of the Encounter. The data comes from the [place] facility where the Encounter took place. Date/Time Smoking Status/Tobacco Use Comment F acility Aug 17, 2022 09:15 AM VA-TOBACCO QUIT 15 YRS OR MORE [facility] Oct 27, 2021 09:00 AM VA-TOBACCO FORMER USER [facility] Oct 27, 2021 09:00 AM VA-TOBACCO QUIT 15 YRS OR MORE [facility] Sep 19, 2020 09:00 AM VA-TOBACCO FORMER USER [facility] Sep 19, 2020 09:00 AM VA-TOBACCO QUIT 15 YRS OR MORE [facility] Dec 20, 2018 10:09 AM VA-TOBACCO FORMER USER [facility] Dec 20, 2018 10:09 AM VA-TOBACCO QUIT 15 YRS OR MORE [facility] Dec 07, 2017 09:12 AM FORMER TOBACCO USER 7Y OR GREATE R [facility] Apr 21, 2017 08:35 AM FORMER TOBACCO USER 7Y OR GREATE R [facility] Apr 28, 2016 08:20 AM FORMER TOBACCO USER 7Y OR GREATE R [facility] January 22, 2015 10:07 AM FORMER TOBACCO USER 7Y OR GREATE R [facility] January 25, 2014 10:11 AM FORMER TOBACCO USER 7Y OR GREATE R [facility] December 30, 2011 08:00 AM FORMER TOBACCO USER 7Y OR GREATE R [facility] January 21, 2011 01:16 PM FORMER TOBACCO USE >1Y <7Y [facility] Nov 27, 2009 08:09 AM FORMER TOBACCO USE >1Y <7Y [facility] Dec 27, 2008 12:32 AM FORMER TOBACCO USE >1Y <7Y [facility] January 03, 2008 12:52 PM FORMER TOBACCO USE >1Y <7Y [facility] January 11, 2007 10:43 AM FORMER TOBACCO USE >1Y <7Y [facility] Advance Directives: All historical and current Section Date Range: From patient's date of to the date document was created. This section includes ALL of a patient's completed or amended [place] Advance and Rescinded Directives. The entries below indicate that a directive exists for the patient, but an actual copy is not included with this document. The data comes from all [place] facilities. Date Advance Directives Provider Source Dec 04, 2009 CLINICAL WARNING [facility]I [facility] Radiology Reports: +/- 30 days of the encounter Radiology Reports For cases when an order for radiology services may have been completed prior to the date of the Encounter, the report list includes the Radiology Reports that were completed up to 30 days before dateof the Encounter. For cases when an order for radiology services may have been completed after the date of the Encounter, the report list also includes the Radiology Reports that were completed up to30 days after date of the Encounter. The data comes from all [place] treatment facilities. Date/Time Radiology Report Provider Source Mar 01, 2023 07:[address] (C) CHEST (P): ROSS IGLESIAS [id number] -1945 M Exm Date: MAR 01, 2023@07:34 Req Phys: EDUARDO PRATT Loc: [facility] PACT FLAME 4D (Req'g Loc) Img Loc: CT IMAGING Service: Unknown (Case [id number] COMPLETE) CT (C) CHEST W/O CONTRAST (CT Detailed) CPT:53557 Reason for Study: Dyspnea, hypoxia, CXR findings Clinical History: IS NOT under investigation for COVID-19 or is COVID-19 negative Defer to radiologist for final CT protocol. 77 y/o w/ mod COPD, chronic hypoxia, c/o chronic flem, LIGHT w/o sx of bronchitis/infection, please evaluate lungs, thanks Schedule 03/01 when here CXR Impression: Patchy opacities within both lungs including a nodular opacity in the left upper lung. Findings may be infectious in the appropriate clinical setting; however, alternative etiologies, including malignancy, are also in the differential. Chest CT could be obtained, as clinically warranted. Please evaluate, thanks Responsible provider name and phone number to notify for critical findings if other than user placing the order and pager listed below: User placing orders pager: [phone] MASHA 5031 LAST 3: Collection DT Specimen Test Name Result Units Ref Range 02/19/2023 11:19 PLASMA CREATININE 1.2 mg/dL 0.7 - 1.2 02/09/2023 07:37 PLASMA CREATININE 1.1 mg/dL 0.7 - 1.2 06/30/2022 07:27 PLASMA CREATININE 1.1 mg/dL 0.7 - 1.2 02/19/2023 11:19 PLASMA .CREAT EGFR(CKD-E 62 Ref: >=60 02/09/2023 07:37 PLASMA .CREAT EGFR(CKD-E 69 Ref: >=60 06/30/2022 07:27 PLASMA .CREAT EGFR(CKD-E 70 Ref: >=60 08/08/2021 07:58 PLASMA ESTIMATED GFR(eGF 49 L Ref: >=60 01/30/2021 10:37 PLASMA ESTIMATED GFR(eGF 49 L Ref: >=60 09/19/2020 08:31 PLASMA ESTIMATED GFR(eGF 46 L Ref: >=60 Allergies: ([facility]) PENICILLIN (May 15, 1994) SIMVASTATIN (Apr 01, 2006) LOBSTER (Jul 12, 2007) SCALLOPS (Jul 12, 2007) LISINOPRIL (Apr 03, 2008) METOPROLOL (Apr 03, 2008) FISH (Dec 04, 2009) CONTRAST MEDIA (Jul 06, 2022) Report Status: Verified Date Reported: MAR 01, 2023 Date Verified: MAR 01, 2023 Yarder Engineer E-Sig:/ES/KAY VAZ MD Report: Noncontrast chest CT 03/01/2023 INDICATION: 77 year old male with dyspnea, hypoxia, and dyspnea on exertion. Symptoms of bronchitis or infection. TECHNIQUE: Noncontrast. Total dose DLP 309.77 mGy*cm. Comparisons: Outside chest CT 09/07/2019, 06/22/2019, 06/10/2018, 04/07/2017, 10/23/2014. Report: Lungs pleural spaces: Progression of subpleural bullous changes, the largest in the periphery of the upper lobes, with significantly less extensive, but also mildly progressed changes in the periphery of the lower lobes. New mixed peripheral patchy groundglass (with scattered focal dense areas), interstitial and interlobular septal opacities, most diffuse within the inferior lower lobes, consolidation largest within the lateral and posterior periphery of the left upper lobe (an area of greatest parenchymal groundglass density with associated internal traction bronchiectasis/cystic change, example images 42 through 126 series 3). Additional scattered dense irregular subpleural bandlike parenchymal densities include (series 3,: - anterior lingula, example images 90 through 136 - Posterior left lower lobe, images 139 through 159 - Lateral left lower lobe, image 184 At least moderate upper lobe centrilobular emphysema, which spares the lower lobes. Mild to moderate primarily central bronchial wall thickening, with mild lower lobe predominant bronchiectasis. Differential is broad and nonspecific, including forms of (chronic potentially recurrent) post inflammatory lung disease, however the pattern of cystic change and bronchiectasis is not typical of UIP, nor NSIP. Currently, the bronchial tree remains clear. Current findings suggest nonspecific pneumonitis, currently basilar predominant. As there has been significant progression of peripheral cystic changes since August 2019, and there is potential chronic component of posterior left upper lobe consolidation with traction bronchiectasis, consider pulmonary consult. Forms of atypical chronic pneumonitis, systemic disease (such as collagen vascular disease, or sarcoid), drug reaction, or less likely, hypersensitivity may be within the differential. Is any outside imaging after September 07, 2019 available to assess potential interval change? Is there any relevant correlated history which may assist in the differential? No effusion. Mild elevation of the right hemidiaphragm. Mediastinum: Heart size upper limits of normal. No pericardial effusion. Ascending aorta 4.6 cm, aneurysmal. The posterior transverse aortic arch is 4.5 cm, also aneurysmal. Severe calcification of the coronary arteries. Stents may be present. Multiple small mediastinal lymph nodes, measuring up to 12 mm in the pericarinal region, favored as reactive. No hernia. Bone soft tissues: Multilevel at least moderate mid to lower thoracic degenerative disc disease, with flowing anterior mid to lower thoracic osteophytes, fused. Mineralization of several lower thoracic disc spaces. Mild chronic compression deformity of mid to lower thoracic vertebral bodies, chronic. Moderate bilateral shoulder joint degenerative change. Upper abdomen: Liver: Incompletely imaged, 13.5 cm in midclavicular line. Several small well-circumscribed low-attenuation foci within the liver, the largest 10 mm, lateral segment left liver, fluid density, consistent with cyst. Additional subcentimeter foci, too small to characterize, also potential cysts (example 5 mm lateral inferior right liver, image 33 series 4). Gallbladder: Partially imaged, moderately filled, without stone. No specific features of cholecystitis or biliary obstruction to extent seen. Spleen: 9.5 cm in length. Splenic granulomata. Adrenals: Low-attenuation nodularity to both adrenals, attenuation consistent with adenomatous change. Pancreas: Diffuse moderate to significant fatty replacement. Vascular: Mild to moderate peripheral atherosclerotic disease. Kidneys: Normal in location and axis. Asymmetric mild to moderate regional cortical volume loss. Bowel: Unremarkable. Multiple well-circumscribed low-attenuation renal cortical masses, the largest fluid density consistent with cysts, but incompletely characterized on noncontrast CT. Some of the masses are technically indeterminant in attenuation, example 2.5 x 2.1 cm anterior mid left, 15 Hounsfield units (previously seen to measure fluid density on CT 09/07/2019), likely mildly complex cyst. 8 x 5 mm high density cortical focus posterior lateral mid left kidney, image 291 series 4, 98 Hounsfield units, favored as small high density cyst. No renal collecting system stone or evidence of renal obstruction. Nodes: Multiple small and borderline retroperitoneal para-aortic and kade hepatis lymph nodes, increased from September 07, 2019, in conjunction with mild soft tissue stranding in the anterior periaortic retroperitoneum, favored as inflammatory. Largest left retroperitoneal nodes measure up to 9 mm. Impression: 1. New mixed mixed groundglass, interlobular septal, and interstitial pulmonary parenchymal opacities, with scattered dense focal consolidations, in the setting of primarily subpleural peripheral worsening bullous change. Most confluent changes in the posterior inferior lower lobes, with suspect chronic dense consolidation in the posterior left upper lobe. Mild to moderate central bronchial wall thickening, with mild lower lobe bronchiectasis. The findings are nonspecific as noted above, with a broad differential. Given the findings are new, recommend correlation with any interval outside imaging later than September 07, 2019, and correlation with any clinical history/systemic disease which may be helpful for nonspecific forms of parenchymal pulmonary disease. Recommend pulmonary consult. See discussion above. 2. 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 3. Severe calcification of the coronary arteries. Stents may be present. 4. Chronic mild to moderate asymmetric renal cortical loss. Several renal cortical cysts and probable high density cyst, incompletely characterized. 5. Increasing central retroperitoneal, root of mesentery, and kade hepatis lymph nodes, which are favored as reactive. Does the patient have forms of known systemic disease? 6. Hepatic parenchymal cysts. 7. Adrenal adenomatous change. Primary Interpreting Staff: KAY VAZ MD, RADIOLOGIST (Yarder Engineer) /KAY MIKE [facility] Feb 19, 2023 11:07 AM CHEST 2 VIEWS PA A ND LAT: ROSS IGLESIAS [id number] -1945 M Exm Date: FEB 19, 2023@11:07 Req Phys: EDUARDO PRATT Loc: [facility] PACT FLAME 4D (Req'g Loc) Img Loc: MAIN X-RAY Service: Unknown (Case [id number] COMPLETE) CHEST 2 VIEWS PA AND LAT (RAD Detailed) CPT:40228 Reason for Study: Hypoxia, flem, dyspnea Clinical History: IS NOT under investigation for COVID-19 or is COVID-19 negative Chronic hypoxia, moderate COPD, chronic flem, 20 pack year smoking. Please evaluate lungs, thanks Responsible provider name and phone number to notify for critical findings if other than user placing the order and pager listed below: User placing orders pager: [phone] [facility] 5034 LAST CREATININE 1.1 (02/09/23) Report Status: Verified Date Reported: FEB 19, 2023 Date Verified: FEB 19, 2023 Yarder Engineer E-Sig:/ES/MALCOM VALDIVIA MD Report: PROCEDURE: CHEST 2 VIEWS PA AND LAT INDICATION: Hypoxia. COMPARISON: 09/07/2019 FINDINGS: PA and lateral views the chest demonstrate adequate inflation of the lungs. There are patchy opacities in both lungs, including a nodular opacity in the left upper lung. No pneumothorax or significant effusion. Heart size is within normal limits. Osseous structures are unremarkable for age. Impression: Patchy opacities within both lungs including a nodular opacity in the left upper lung. Findings may be infectious in the appropriate clinical setting; however, alternative etiologies, including malignancy, are also in the differential. Chest CT could be obtained, as clinically warranted. At a minimum, repeat CXR in 6-8 weeks is recommended. Primary Interpreting Staff: MALCOM VALDIVIA MD, STAFF RADIOLOGIST (Yarder Engineer) /[facility] MALCOM VALDIVIA [facility] Feb 09, 2023 08:43 AM US LOWER EXTREMITY VEIN (UNILATERAL) (P): ROSS IGLESIAS [id number] [facility]-1945 M Exm Date: FEB 09, 2023@08:43 Req Phys: TASHA PRIETO Loc: [facility] EMERGENCY DEPT WALK-IN ( Img Loc: Ultrasound Imaging Service: Unknown (Case [id number] COMPLETE) US EXTREMITY VEINS UNILAT (US Detailed) CPT:91547 Proc Modifiers : RIGHT Reason for Study: R/O RLE DVT Clinical History: [place] IS NOT under investigation for COVID-19 or is COVID-19 negative H/O DVT, 3-4d pain and swelling of RLE. Responsible provider name and phone number to notify for critical findings if other than user placing the order and pager listed below: User placing orders pager: [phone] LA[facility] CREATININE 1.1 (02/09/23) Report Status: Verified Date Reported: FEB 09, 2023 Date Verified: FEB 09, 2023 Yarder Engineer E-Sig:/ES/KAY VAZ MD Report: Duplex Ultrasound of the Deep Veins of RIGHT Lower Extremity 02/09/2023 Technique: Franco-scale evaluation with compression and Doppler assessment of venous system for spontaneous and phasic flow, as well as the presence of distal augmentation. Color flow images obtained as needed. Comparison study: Right lower extremity venous ultrasound 07/02/2014. History: H/O DVT, 3-4d pain and swelling of RLE. Findings: Right leg: The common femoral vein and popliteal vein are fully compressible with flow and augmentation. The posterior tibial veins are compressible without evidence for thrombus. The peroneal veins are compressible without evidence of thrombus. Nonocclusive, partially compressible thrombus in the right deep femoral vein and proximal femoral vein. The mid to distal portions of the right femoral vein are patent and fully compressible. Proximal great saphenous vein: fully compressible. Proximal gastrocnemius veins (deep venous system): fully compressible. Left leg: Doppler examination demonstrates compressibility and phasic waveforms in the common femoral vein. Impression: Right leg: Nonocclusive DVT in the right deep femoral vein and proximal right femoral vein. The findings of the study were discussed over the phone with Dr. Prieto, who verbalized understanding, by Dr. Yeung at 9:30 am on 02/09/2023. I, KAY VAZ, have reviewed the images and report. Primary Interpreting Staff: KAY VAZ MD, RADIOLOGIST (Yarder Engineer) Primary Interpreting Resident: CRISTÓBAL YEUNG MD, J2EE SOFTWARE ENGINEER /KAY Zaragoza [facility] Encounter Notes: All associated encounter notes This section contains the clinical notes associated to the Encounter. Date/Time Encounter Note(s) Provider Source Mar 03, 2023 05:51 AM LETTERS: LOCAL TITLE: FOLLOW UP RESULTS LETTER STANDARD TITLE: LETTERS DATE OF NOTE: MAR 03, 2023@05:51 ENTRY DATE: MAR 03, 2023@05:51:29 AUTHOR: J LUIS PRATT EXP COSIGNER: URGENCY: STATUS: COMPLETED [facility] [address] [place] [address] Feb ROSS IGLESIAS [id number] [place] [id number] Dear [place]: I am writing to inform you of the results of testing that you had done recently at the [facility]. Impression: 1. New mixed mixed groundglass, interlobular septal, and interstitial pulmonary parenchymal opacities, with scattered dense focal consolidations, in the setting of primarily subpleural peripheral worsening bullous change. Most confluent changes in the posterior inferior lower lobes, with suspect chronic dense consolidation in the posterior left upper lobe. Mild to moderate central bronchial wall thickening, with mild lower lobe bronchiectasis. The findings are nonspecific as noted above, with a broad differential. Given the findings are new, recommend correlation with any interval outside imaging later than September 07, 2019, and correlation with any clinical history/systemic disease which may be helpful for nonspecific forms of parenchymal pulmonary disease. Recommend pulmonary consult. See discussion above. Additional Comments: The CT scan demonstrated some unusual congestion and phlegm in your lungs. The cause of this is not entirely clear. In light of your shortness of breath and low oxygen on room air, I have placed a consult to be evaluated by a lung doctor. Additionally we'll want to complete the breathing tests ordered, pulmonary function tests. They will contact you for scheduling. If you have any further questions or problems, please contact our nursing staff or provider at the following number: [phone]. Sincerely, Toney Pratt APRN, STOCK GRADER Family Nurse Practitioner EDUARDO PRATT [facility]
--- OUTSIDE RECORDS SUMMARY | 2024-02-26 09:12 | XMS_ITS ---
Author Organization [facility] Address [address] [place] [address] Care Team Providers Care Music Cataloguer Name Role Phone Unavailable Unavailable Unavailable Surgery Details Not on file Complications Check Surgery Details section. Procedure Estimated Blood Loss Check Surgery Details section. Procedure Findings Check Surgery Details section. Procedure Specimens Taken Check Surgery Details section.
--- OUTSIDE RECORDS SUMMARY | 2024-02-26 09:12 | XMS_ITS | Encounter Summary ---
Author Name [facility] [facility] [place] [facility] [place] Address [address] [place] [address] Care Team Providers Care Solder Cream Maker Name Role Phone EDUARDO PRATT Primary Care Provider Unav ailable Insurance Providers: [...] PART A Sep 30, 2010 PART A [id number] [phone] Isaac IGLESIAS PATIENT Selected Encounter This section includes the information on record at [place] for the Encounter. Date/Time Encounter Type Encounter Description Reason Provider Source Mar 01, 2023 10:00 AM OFFICE O/P EST MOD 30-39 MIN PULMONARY/CHEST ICD-10-CM I27.20 Pulmonary hypertension, unspecified DARLING MCGOVERN L IHZulma Encounter Template Text not used by [place] Assessments - Encounter Diagnoses This section includes the primary and secondary diagnoses documented for the Encounter. Date/Time Primary/Secondary Diagnosis Diagnosis Name Provider Source Mar 01, 2023 01:01 PM PRIMARY Pulmonary hypertension, unspecified DARLING MCGOVERN [facility] Mar 01, 2023 01:01 PM SECONDARY Chronic obstructive pulmonary disease, unspecified DARLING MCGOVERN [facility] Plan of Treatment: Future Appointments (+ 6 months) and Future Tests (+/- 45 days) The Plan of Treatment section includes future care activities for the patient from all [place] [facility]. This section includes future appointments and future orders which are active, pending or scheduled. Future Appointments This section includes appointments that were scheduled to occur 6 months from the date of the Encounter, up to a maximum of 20 appointments. The data comes from all [facility]. Appointment Date/Time Appointment Type Appointme nt Facility Name Mar 08, 2023 06:30 PM AMBULATORY - NONE [facility] Mar 26, 2023 09:00 AM AMBULATORY - PSYCHIATRY [facility] Apr 08, 2023 08:20 AM [facility] Apr 08, 2023 09:30 AM [facility] Apr 08, 2023 10:45 AM [facility] May 18, 2023 08:20 AM AMBULATORY - SURGERY [facility] Jun 02, 2023 08:30 AM [facility] Jun 08, 2023 08:30 AM [facility] Jun 11, 2023 09:00 AM [facility] Jun 21, 2023 09:00 AM [facility] Jun 22, 2023 08:15 AM [facility] Jun 28, 2023 08:30 AM AMBULATORY - SURGERY [facility] Jul 01, 2023 12:30 PM [facility] Jul 27, 2023 08:30 PM AMBULATORY - MEDICINE [facility] Active, Pending, and Scheduled Orders This section includes a listing of several types of active, pending, and scheduled orders, including clinic medications orders, diagnostic test orders, procedure orders and consult orders; where the start date of the order is 45 days before the date of the Encounter or 45 days after the date of theEncounter. The data comes from all [facility]. Test Date/Time Test Type Test Details Facility Name Apr 09, 2023 09:25 AM Laboratory - Microbiology Order CULTURE & SUSCEPTIBILITY BLOOD SP ONCE [facility] Lab Results: +/- 30 days of the encounter This section includes the Chemistry and Hematology Lab Results on record with [place] for the patient. Radiology Reports and Pathology Reports are provided separately, in subsequent sections. Lab Results This section contains the Chemistry/Hematology Results that were resulted 30 days before or 30 daysafter the date of the Encounter. Date/Time Source Result Type Result - Unit Interpretation Reference Range Comment Feb 19, 2023 11:[address] [facility] BNP Specimen Type: PLASMA No comment entered. Ordering Provider: YIN PRATT Report Released Date/Time: Feb 19, 2023 10:06 AM Reporting Lab: [facility] [phone] Performing Lab: [facility] [phone] BNP 766 pg/mL H See_Commen t Feb 19, 2023 11:[address] [facility] B 12 Specimen Type: SERUM No comment entered. Ordering Provider: YIN PRATT Report Released Date/Time: Feb 19, 2023 10:06 AM Reporting Lab: [facility] [id number] Performing Lab: [facility] [phone] B 12 871 pg/mL H 213-816 Feb 19, 2023 11:[address] [facility] FOLATE Specimen Type: SERUM No comment entered. Ordering Provider: YIN PRATT Report Released Date/Time: Feb 19, 2023 10:06 AM Reporting Lab: [facility] [phone] Performing Lab: [facility] [phone] FOLATE 6.8 ng/mL L See_Commen t Feb 19, 2023 11:[address] [facility] CBC Specimen Type: BLOOD No comment entered. Ordering Provider: YIN PRATT Report Released Date/Time: Feb 19, 2023 10:06 AM Reporting Lab: [facility] [phone] Performing Lab: [facility] [phone] WBC 5.44 10*3/uL 4.0-11.0 RBC 4.73 10*6/uL 4.6-6.2 HGB 13.9 g/dL 13.5-17.9 HCT 45.5 41-54 MCV 96.2 fL 80-100 MCH 29.4 pg 27-33 MCHC 30.5 g/dL L 32.0-37.5 PLT 203 10*3/uL 150-400 MPV 9.8 fL 7.4-10.4 RDW 17.2 H 11.5-14.5 Feb 19, 2023 11:[address] [facility] COMPREHENSIVE METABOLIC PANEL+MG Specimen Type: PLASMA No comment entered. Ordering Provider: YIN PRATT Report Released Date/Time: Feb 19, 2023 10:06 AM Reporting Lab: [facility] [phone] Performing Lab: [facility] [address] CREATININE 1.2 mg/dL 0.7-1.2 UREA NITROGEN 13 [...] See_Commen t Feb 19, 2023 11:[address] [facility] METHYLMALONIC ACID Specimen Type: SERUM No comment entered. Ordering Provider: YIN PRATT Report Released Date/Time: Feb 19, 2023 12:45 PM Reporting Lab: [facility] [phone] Performing Lab: [facility] [address] METHYLMALONIC ACID 255 nmol/L 0-400 Feb 19, 2023 11:[address] [facility] HOMOCYSTEINE Specimen Type: SERUM No comment entered. Ordering Provider: YIN PRATT Report Released Date/Time: Feb 19, 2023 12:45 PM Reporting Lab: [facility] [address] Performing Lab: [place] [phone] HOMOCYSTEINE 14.2 umol/L 5.1-15.4 Feb 09, 2023 07:[address] [facility] AST/SGOT Specimen Type: PLASMA No comment entered. Ordering Provider: KERRI LONDON IN Y Report Released Date/Time: May 18, 2022 01:02 PM Reporting Lab: [facility] [phone] Performing Lab: [facility] [phone] AST/SGOT 20 U/L See_Commen t Feb 09, 2023 07:[address] [facility] CREATININE(INCLUDES EGFR) Specimen Type: PLASMA No comment entered. Ordering Provider: KERRI LONDON IN Y Report Released Date/Time: May 18, 2022 01:02 PM Reporting Lab: [facility] [phone] Performing Lab: [facility] [phone] CREATININE 1.1 mg/dL 0.7-1.2 .CREAT EGFR(CKD-EPI) 69 See_Commen t Feb 09, 2023 07:[address] [facility] ALT/SGPT Specimen Type: PLASMA No comment entered. Ordering Provider: KERRI LONDON IN Y Report Released Date/Time: May 18, 2022 01:02 PM Reporting Lab: [facility] [phone] Performing Lab: [facility] [phone] ALT/SGPT 11 U/L See_Commen t Feb 09, 2023 07:[address] [facility] CBC Specimen Type: BLOOD No comment entered. Ordering Provider: KERRI LONDON IN Y Report Released Date/Time: May 18, 2022 01:02 PM Reporting Lab: [facility] [phone] Performing Lab: [facility] [address] WBC 5.36 10*3/uL 4.0-11.0 RBC 4.50 10*6/uL [...] and tobacco- related health factors from the [place] facility where the Encounter took place. Current Smoking Status This section includes the most current smoking, or tobacco-related health factor, from the [place] facility where the Encounter took place. Date/Time Current Smoking Status Comment Facil ity Aug 17, 2022 09:15 AM VA-TOBACCO FORMER USER [facility] Tobacco Use History This section includes a history of the smoking, or tobacco-related health factors, that were collected on or before the date of the Encounter. The data comes from the [place] facility where the Encounter took place. Date/Time Smoking Status/Tobacco Use Comment F acility Aug 17, 2022 09:15 AM VA-TOBACCO QUIT [address] [facility] Oct 27, 2021 09:00 AM VA-TOBACCO FORMER USER [facility] Oct 27, 2021 09:00 AM VA-TOBACCO QUIT [address] [facility] Sep 19, 2020 09:00 AM VA-TOBACCO FORMER USER [facility] Sep 19, 2020 09:00 AM VA-TOBACCO QUIT [address] [facility] Dec 20, 2018 10:09 AM VA-TOBACCO FORMER USER [facility] Dec 20, 2018 10:09 AM VA-TOBACCO QUIT [address] [facility] Dec 07, 2017 09:12 AM FORMER TOBACCO USER 7Y OR GREATE R [facility] Apr 21, 2017 08:35 AM FORMER TOBACCO USER 7Y OR GREATE R [facility] Apr 28, 2016 08:20 AM FORMER TOBACCO USER 7Y OR GREATE R [facility] January 22, 2015 10:07 AM FORMER TOBACCO USER 7Y OR GREATE R [facility] January 25, 2014 10:11 AM FORMER TOBACCO USER 7Y OR GREATE R [facility] December 30, 2011 08:00 AM FORMER TOBACCO USER 7Y OR GREATE R [facility] January 21, 2011 01:16 PM FORMER TOBACCO USE >1Y <7Y [facility] Nov 27, 2009 08:09 AM FORMER TOBACCO USE >1Y <7Y [facility] Dec 27, 2008 12:32 AM FORMER TOBACCO USE >1Y <7Y [facility] January 03, 2008 12:52 PM FORMER TOBACCO USE >1Y <7Y [facility] January 11, 2007 10:43 AM FORMER TOBACCO USE >1Y <7Y [facility] Advance Directives: All historical and current Section Date Range: From patient's date of to the date document was created. This section includes ALL of a patient's completed or amended [place] Advance and Rescinded Directives. The entries below indicate that a directive exists for the patient, but an actual copy is not included with this document. The data comes from all [place] facilities. Date Advance Directives Provider Source Dec 04, 2009 CLINICAL WARNING KAMARI CUMMINGS [facility] Radiology Reports: +/- 30 days of [...] the Encounter. The data comes from all [place] treatment facilities. Date/Time Radiology Report Provider Source Mar 01, 2023 07:[address] (C) CHEST (P): ROSS IGLESIAS ALEJANDRO [id number] -1945 M Exm Date: MAR 01, 2023@07:34 Req Phys: EDUARDO PRATT Loc: [facility] PACT FLAME 4D (Req'g Loc) Img Loc: CT IMAGING Service: Unknown (Case [id number] COMPLETE) CT (C) CHEST W/O CONTRAST (CT Detailed) CPT:87346 Reason for Study: Dyspnea, hypoxia, CXR findings Clinical History: [place] IS NOT under investigation for COVID-19 or [...] pager listed below: User placing orders pager: [phone] [facility] [phone] LAST 3: Collection DT Specimen Test Name [...] ESTIMATED GFR(eGF 46 L Ref: >=60 Allergies: ([place] only) PENICILLIN (May 15, 1994) SIMVASTATIN (Apr 01, 2006) LOBSTER (Jul 12, 2007) SCALLOPS (Jul 12, 2007) LISINOPRIL (Apr 03, 2008) METOPROLOL (Apr 03, 2008) FISH (Dec 04, 2009) CONTRAST MEDIA (Jul 06, 2022) Report Status: Verified Date Reported: MAR 01, 2023 Date Verified: MAR 01, 2023 Bottom Filler E-Sig:/ES/KAY VAZ MD Report: Noncontrast chest CT [...] Primary Interpreting Staff: KAY VAZ MD, RADIOLOGIST (Bottom Filler) /KAY [facility] Feb 19, 2023 11:07 AM CHEST 2 VIEWS PA A ND LAT: ROSS IGLESIAS [id number] -1945 M Exm Date: FEB 19, 2023@11:07 Req Phys: EDUARDO PRATT Loc: [facility] PACT FLAME 4D (Req'g Loc) Img Loc: MAIN X-RAY Service: Unknown (Case [id number] COMPLETE) CHEST 2 VIEWS PA AND LAT (RAD Detailed) CPT:38440 Reason for Study: Hypoxia, flem, dyspnea Clinical History: [place] IS NOT under investigation for COVID-19 or is COVID-19 negative Chronic hypoxia, moderate COPD, chronic flem, 20 pack year smoking. Please evaluate lungs, thanks Responsible provider name and phone number to notify for critical findings if other than user placing the order and pager listed below: User placing orders pager: [phone] [place] [id number] LAST CREATININE 1.1 (02/09/23) Report Status: Verified Date Reported: FEB 19, 2023 Date Verified: FEB 19, 2023 Bottom Filler E-Sig:/ES/MALCOM VALDIVIA MD Report: PROCEDURE: CHEST 2 [...] Interpreting Staff: MALCOM VALDIVIA MD, STAFF RADIOLOGIST (Bottom Filler) /SHP MALCOM VALDIVIA [facility] Feb 09, 2023 08:43 AM US LOWER EXTREMITY VEIN (UNILATERAL) (P): ROSS IGLESIAS [id number] -1945 M Exm Date: FEB 09, 2023@08:43 Req Phys: TASHA PRIETO Loc: [facility] EMERGENCY DEPT WALK-IN (Re Img Loc: Ultrasound Imaging Service: Unknown (Case [id number] COMPLETE) US EXTREMITY VEINS UNILAT (US Detailed) CPT:68973 Proc Modifiers : RIGHT Reason for Study: R/O RLE DVT Clinical History: IS NOT under investigation for COVID-19 or is COVID-19 negative H/O DVT, 3-4d pain and swelling of RLE. Responsible provider name and phone number to notify for critical findings if other than user placing the order and pager listed below: User placing orders pager: [phone] LAST CREATININE 1.1 (02/09/23) Report Status: Verified Date Reported: FEB 09, 2023 Date Verified: FEB 09, 2023 Bottom Filler E-Sig:/ES/KAY VAZ MD Report: Duplex Ultrasound of [...] Primary Interpreting Staff: KAY VAZ MD, RADIOLOGIST (Bottom Filler) Primary Interpreting Resident: CRISTÓBAL YEUNG MD, ANALYST FOOD AND BEVERAGE /KAY Zaragoza [facility] Encounter Notes: All associated encounter notes This section contains the clinical notes associated to the Encounter. Date/Time Encounter Note(s) Provider Source Mar 01, 2023 12:51 PM RESPIRATORY THERAP Y NOTE: LOCAL TITLE: RESPIRATORY THERAPY F/U NOTE STANDARD TITLE: RESPIRATORY THERAPY NOTE DATE OF NOTE: MAR 01, 2023@12:51 ENTRY DATE: MAR 01, 2023@12:51:58 AUTHOR: GRETA MCGOVERN EXP COSIGNER: URGENCY: STATUS: COMPLETED seen in clinic as scheduled. [place] did not bring oxygen with him today but says he does wear it all the time at home. SpO2 was in the low to mid 80's, occasionally dropping to the upper 70's. He was able to speak in full sentences and did not present as short of breath. Oxygen was started and slowly increased as we visited. 2 LPM was found to keep him in the low 90's. We went for a brief walk and he did drop but recovered fairly quickly after sitting. I recommended that he could go up to 4 LPM with exertion but when just sitting at home the 2 LPM should be more than adequate. Prescription updated to 2-4 LPM via nasal cannula 18-24 hours/day. did request further education on his equipment and this request will be made via consult to [facility]. Felicia did watch the fire safety video during our visit and asked many thoughtful, appropriate questions. Felicia is not a smoker but states he loves to BBQ. /johana/ GRETA MCGOVERN TRANSMISSION MAINTENANCE SUPERVISOR REGISTERED RESPIRATORY THERAPIST Signed: 03/01/2023 13:01 Receipt Acknowledged By: * AWAITING SIGNATURE * FERDINAND JEAN BAPTISTE MONICA L [facility]
--- OUTSIDE RECORDS SUMMARY | 2024-02-26 09:12 | XMS_ITS | Clinical Summary ---
Author Organization [facility] Address [address] [place] [address] Care Team Providers Care Case Preparer And Liner Name Role Phone Unavailable Primary Care Provider Unavailabl e Source Comments Patient records contain information from all sites at [facility]. For routine questions regarding patient records, call [phone] during business hours, M-F 8:00 AM - 5:00 PM Central Time. 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 No ischemia demonstrated. Encounters Date Type Department Care Team Description 12/10/2023 10:15 AM CDT Office Visit Department of Ophthalmology in [place], [place] [address] [address] Cipriano Whittaker M.D. Membrane Macula Epiretinal Bilateral (Primary Dx); Subluxation Lens Right from Last 3 Months Immunizations Name Administration Dates Next Due H1N1 [...] Comments Blood Pressure 153/98 08/02/2023 12:26 PM SOLUTION SPEC Pulse 81 08/02/2023 12:28 PM SOL[facility] SPEC Temperature 36.6 ??C (97.9 ??F) 08/02/2023 12:[address] Respiratory Rate 17 08/02/2023 12:28 PM SOL[facility] SPEC Oxygen Saturation 97% 08/02/2023 12:28 PM SOL[facility] SPEC Inhaled Oxygen Concentration - - Weight 76 kg (167 lb 8.8 oz) 08/02/2023 7:56 AM SOL[facility] SPEC Height 167 cm (5' 5.75) 08/02/2023 7:56 AM SOLUTION SPEC Body Mass Index 27.25 08/02/2023 7:56 AM SOLUTION SPEC Plan of Treatment Health Maintenance Due Date Last Done Comments Hepatitis C Screening 1945 Pneumococcal vaccine (65+ ye ars) (2 of 2 - PPSV23 or PCV20) 07/12/2015 05/17/2015, 09/21/2011, 05/30/2003 Depression Screening (Annual PHQ-2) 08/30/2023 Fall Risk Screen (Annual) 08/30/2023 Office Visit for Blood Press ure Check / Re-check 10/19/2023 07/19/2023 COVID-19 Vaccine (2022-2 4 season) 2023 06/21/2023, 08/17/2022, 02/05/2022, Additional history exists Creatinine Level (Kidney Fun ction Test) 07/19/2024 07/19/2023, 03/05/2020, 03/05/2020 Potassium Level 07/19/2024 07/19/2023, 07/0 02/2020, 03/05/2020 Sodium Level 07/19/2024 07/19/2023, 07/0 02/2020, 03/05/2020 DTaP,Tdap,and Td Vaccines (3 - Td or Tdap) 08/17/2032 08/17/2022, 11/10/2012, 12/06/2002 Zoster Vaccines Completed 12/20/2018, 10/01, 03/24/2012 Influenza Vaccine Completed 06/21/2023, , 05/29/2021, Additional history exists Medical Devices Implanted Type Area Mopper Device Identifier Shelf Expiration Date Model / Serial / Lot Cardiac Stent Cardiac Stent Chest Description:x3 Lens Env [id number] +21.0d - [id number] - [id number] Implanted:Qty : 1 on 08/02/2023 by Cipriano Whittaker M.D. at [facility] Ocular Lens Right: [employer]. 04/29/2026 [id number] / [id number] / Explanted Type Area Mopper Device Identifier Shelf Expiration Date Model / Serial / Lot Ocular Lens Explanted:Qty: 1 on 08/02/2023 by Ming Fernandez M.D. at [facility] Ocular Lens Eye Procedures Procedure Name Priority Date/Time Associated Diagnosis Comments OPTICAL COHERENCE TOMOGRAPHY - MACULA/RETINA - OU - BOTH EYES Routine 12/10/2023 10:38 AM CDT Subluxation Lens Right BASIC METABOLIC PANEL, S/P Routine 07/19/2023 9:58 AM SOLUTION SPEC Preanesthetic Medical Exam Atherosclerotic Heart Disease Of Three Affiliated Coronary Artery Without Angina Pectoris Hyperlipidemia Hypertension [...] (ABNORMAL) Basic Metabolic Panel (07/19/2023 9:58 AM SOLUTION SPEC) Potassium, S 4.0 3.6 - 5.2 mmol/L 07/19/2023 10:53 AM SOLUTION SPEC DTL Sodium, S 139 135 - 145 mmol/L 07/19/2023 10:53 AM SOLUTION SPEC DTL Chloride, S 98 98 - 107 mmol/L 07/19/2023 10:53 AM SOLUTION SPEC DTL Bicarbonate, S 31(H) 22 - 29 mmol/L 07/19/2023 10:53 AM SOLUTION SPEC DTL Anion Gap 10 7 - 15 07/19/2023 10:53 AM SOLUTION SPEC DTL BUN (Blood Urea Nitrogen), S 14 8 - 24 mg/dL 07/19/2023 10:53 AM SOLUTION SPEC DTL Creatinine 1.34 0.74 - 1.35 mg/dL 07/19/2023 10:53 AM SOLUTION SPEC DTL Estimated GFR (eGFR) 55(L) >=60 mL/min/BSA 07/19/2023 10:53 AM SOLUTION SPEC DTL Comment: Estimated GFR calculated using the 2020 CKD_EPI creatinine equation. Calcium, Total, S 9.3 8.8 - 10.2 mg/dL 07/19/2023 10:53 AM SOLUTION SPEC DTL Glucose, S 101 70 - 140 mg/dL 07/19/2023 10:53 AM SOLUTION SPEC DTL Blood (Blood, Venous) 07/19/2023 9:58 AM SOLUTION SPEC 07/19/2023 10:34 AM SOLUTION SPEC Verona Parra APRN, C.N.P., M.S.N. LAB BL OOD ADD-ON [facility] [address] [place] [address], [facility] [address] [place] [address] from Last 3 Months or Most Recently Relevant to Health Maintenance [address] [place] [address]
--- OUTSIDE RECORDS SUMMARY | 2024-02-26 09:12 | XMS_ITS | Continuity of Care Document ---
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 It does not include entries that were removed or entered in error. Problem Status Onset Date Problem Type Date of Resolution Comments Source Exposure to potentially hazardous substance (SCT [id number]) Active 11/04/19 24 Condition Nov 04, 2023 Entered By: ZANE WOODWARD Comment[facility]ation [facility] Coronary artery disease Active 08/30/19 04 Condition Apr 22, 2018 Entered By: ANJEL DUONG Comment: S/P stents to RCA and Cx in 2003 (ANW)Apr 25, 2018 Entered By: ANJEL DUONG Comment: Cath (2011) No significant lesions.Apr 25, 2018 Entered By: ANJEL DUONG Comment: Rest MPS (2016) No ischemia. EF 58%.Apr 25, 2018 Entered By: ANJEL DUONG Comment: Echo (2016) EF 60-65%. Normal chambers and valves.Feb 20, 2023 Entered By: CHERI PRATT Comment: 2019 Stress Thalium: 1. No ischemia demonstrated. [facility] History of venous thrombosis Active 08/30/18 78 Condition Apr 25, 2018 Entered By: ANJEL DUONG Comment: H/O provoked LE DVT in 1977.Jan 31, 2020 Entered By: ANJEL DUONG Comment: Recurrent unprovoked DVT in 1986.Jan 31, 2020 Entered By: ANJEL DUONG Comment: H/O unprovoked right leg DVT in [address] [facility] Benign prostatic hyperplasia with outflow obstruction Active Condition [facility] Chronic respiratory failure Active Condition [facility] Chronic rhinitis Active Condition [facility] COPD - Chronic obstructive pulmonary disease Active Condition Apr 25 18 Entered By: ANJEL DUONG Comment: FEV1/FVC (2009) 2.00/3.13. FEV1 70% pred. FEV1% 64.Feb 20, 2023 Entered By: CHERI PRATT Comment: Moderatre COPD [facility] Depression (SNOMED CT 54901077) Active Condition [facility] Ex-tobacco user Active Condition Feb 20, 2023 Entered By: CHERI PRATT Comment: Quit 2003, [address] 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 History of adenomatous polyp of colon Active Condition [facility] History of malignant neoplasm of skin excluding melanoma Active Condition Apr 22, 2018 Entered By: ANJEL DUONG Comment: H/O recurrent non-melanoma skin cancers [facility] Hyperlipidemia Active Condition [facility] Hypertension Active Condition [facility] Hypoxic Active Condition Feb 20 Entered By: CHERI PRATT Comment: Chronic 78 - 85% RA [facility] Long-term current use of anticoagulant Active Condition [facility] Malignant tumor of oropharynx Active Condition Oct 23, 2013 Entered By: MARI CLIFTON Comment: 1977 [facility] Osteoarthritis (SNOMED CT 350191957) Active Condition [facility] Parkinsonism Active Condition [facility] Peripheral neuropathy Active Condition [facility] Posttraumatic stress disorder (SNOMED CT 33487480) Active Condition [facility] Preglau/Glauc Suspect Active Condition [facility] Pulmonary hypertension Active Condition Feb 20, 2023 Entered By: CHERI PRATT Comment: MildJun 2022 Entered By: CHERI PRATT Comment: 11/[address] [facility] Syncope Active Condition [facility] Tremor Active Condition [facility] Depression, Unspec Inactive Condition 01/03/2008 [facility] Gynecomastia * (ICD-9-CM 611.1) Inactive Condition 01/03/2008 [facility] Pneumonia, organism unspecified (ICD-9-CM 486.) Inactive Condition 11/09/2012 [facility] Diagnosis: ICD-10-CM G25.0 Essential tremor Active Diagnosis [facility] Diagnosis: ICD-10-CM F33.8 Other recurrent depressive disorders Active Diagnosis [facility] Diagnosis: ICD-10-CM J44.9 Chronic obstructive pulmonary disease, unspecified Active Diagnosis 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 Diagnosis: ICD-10-CM G47.33 Obstructive sleep apnea (adult) (pediatric) Active Diagnosis [facility] Diagnosis: ICD-10-CM H90.3 Sensorineural hearing loss, bilateral Active Diagnosis [facility] Diagnosis: ICD-10-CM Z01.118 Encntr for exam of ears and hearing w oth abnormal findings Active Diagnosis [facility] Diagnosis: ICD-10-CM R25.1 Tremor, unspecified Active Diagnosis [facility] Diagnosis: ICD-10-CM G90.09 Other idiopathic peripheral autonomic neuropathy Active Diagnosis [facility] Diagnosis: ICD-10-CM K08.109 Complete loss of teeth, unspecified cause, unspecified class Active Diagnosis [facility] Diagnosis: ICD-10-CM F43.12 Post-traumatic stress disorder, chronic Active Diagnosis [facility] Diagnosis: ICD-10-CM L60.3 Nail dystrophy Active Diagnosis [facility] Diagnosis: ICD-10-CM Z96.1 Presence of intraocular lens Active Diagnosis [facility] Diagnosis: ICD-10-CM B35.1 Tinea unguium Active Diagnosis [facility] Diagnosis: ICD-10-CM I27.20 Pulmonary hypertension, unspecified Active Diagnosis [facility] Diagnosis: ICD-10-CM L03.115 Cellulitis of right lower limb Active Diagnosis [facility] Diagnosis: ICD-10-CM H57.813 Brow ptosis, bilateral Active Diagnosis [facility] Diagnosis: ICD-10-CM I10 Essential (primary) hypertension Active Diagnosis [facility] Diagnosis: ICD-10-CM I25.10 Athscl heart disease of [place] coronary artery w/o ang pctrs Active Diagnosis [facility] Diagnosis: ICD-10-CM H35.372 Puckering of macula, left eye Active Diagnosis [facility] Diagnosis: ICD-10-CM H40.10X2 Unspecified open-angle glaucoma, moderate stage Active Diagnosis [facility] Medications Combined list of outpatient medications from Department of Defense and [facility] Affairs facilities.Medications provided include 1) outpatient medications from the last 15 months, and 2) patient-reported medications. Medication Details Route Status Patient Instructions Prescription Expires Prescription Number Last Dispense Date Ordering Provider Order Date Order Qty Source ALBUTEROL 90MCG/ACTUA T (CFC-F) INHL,ORAL,8 .5GM DOSE COUNTER ALBUTERO L 90MCG/AC TUAT (CFC-F) INHL,ORA L,8.5GM DOSE COUNTER Active INHALE 2 PUFFS BY INHALATI ON EVERY 4 HOURS NEEDED FOR SHORTNES S OF BREATH FOR SHORTNES S OF BREATH Oct 11, 2023 2 Oct 11, 2024 [id number] A Dec 06, 2023 YULI PRATT [place] [facility] RESPIR ATORY (INHAL ATION) ACTIVE 10/11/2024 [id number] 4 VERÓNICA PRATT 2023 2 [place] [facility] ALBUTEROL 90MCG/ACTUA T (CFC-F) INHL,ORAL,8 .5GM DOSE COUNTER ALBUTERO L 90MCG/AC TUAT (CFC-F) INHL,ORA L,8.5GM DOSE COUNTER Disconti nued INHALE 2 PUFFS BY INHALATI ON EVERY 4 HOURS NEEDED FOR SHORTNES S OF BREATH FOR SHORTNES S OF BREATH Feb 19, 2023 2 Feb 20, 2024 [id number] Oct 17, 2023 YULI PRATT [place] [facility] RESPIR ATORY (INHAL ATION) DISCONT INUED 02/20/2024 [id number] 4 VERÓNICA PRATT 2022 2 [place] [facility] ATORVASTATI N CA 40MG TAB ATORVAST ATIN CA 40MG TAB Active: Susp TAKE ONE TABLET BY MOUTH EVERY DAY FOR CHOLESTE ROL Oct 11, 2023 90 Oct 11, 2024 [id number] B Apr 03, 2024 YULI PRATT [place] [facility] ORAL SUSPEND ED 10/11/2024 [id number] 4 VERÓNICA PRATT 2023 90 [facility] ATORVASTATI N CA 40MG TAB ATORVAST ATIN CA 40MG TAB Disconti nued TAKE ONE TABLET BY MOUTH EVERY DAY FOR CHOLESTE ROL Feb 19, 2023 90 Feb 20, 2024 [id number] A Oct 16, 2023 YULI PRATT [place] [facility] ORAL DISCONT INUED 02/20/2024 [id number] 4 VERÓNICA PRATT ER 2022 90 [facility] ATORVASTATI N CA 40MG TAB ATORVAST ATIN CA 40MG TAB Disconti nued TAKE ONE TABLET BY MOUTH EVERY DAY FOR CHOLESTE ROL Nov 10, 2022 90 Nov 11, 2023 [id number] Jan 29, 2023 PROEBSTL E,CATHER INE B [facility] ORAL DISCONT INUED 11/11/2023 [id number] PROEBSTLE VERNONERIN E B 2022 90 [facility] BRIMONIDINE TARTRATE 0.2% SOLN,OPH BRIMONID INE TARTRATE 0.2% SOLN,OPH Active INSTILL 1 DROP IN BOTH EYES TWICE A DAY FOR GLAUCOMA SPACE 10 MINUTES APART FROM OTHER EYE DROPS Mar 18, 2023 10 Mar 18, 2024 [id number] Feb 02, 2024 [facility] GIBS[facility] OPHTHA LMIC ACTIVE 03/18/2024 [id number] COLLIN BRADLEY 2022 10 [facility] BRIMONIDINE TARTRATE 0.2% SOLN,OPH BRIMONID INE TARTRATE 0.2% SOLN,OPH Disconti nued INSTILL 1 DROP IN BOTH EYES TWICE A DAY FOR GLAUCOMA SPACE 10 MINUTES APART FROM OTHER EYE DROPS Apr 06, 2022 10 Apr 07, 2023 [id number] C Feb 21, 2023 [facility]BS[facility] OPHTHA LMIC DISCONT INUED 04/07/2023 [id number] 3 COLLIN BRADLEY 2021 10 [facility] CALCIUM CARBONATE 650MG TAB CALCIUM CARBONAT E 650MG TAB Active TAKE ONE TABLET BY MOUTH EVERY DAY Oct 11, 2023 90 Oct 11, 2024 [id number] B Feb 05, 2024 YULI PRATT [facility] ORAL ACTIVE 10/11/2024 [id number] 4 VERÓNICA PRATT 2023 90 [facility] [place] [facility] CALCIUM CARBONATE 650MG TAB CALCIUM CARBONAT E 650MG TAB Disconti nued TAKE ONE TABLET BY MOUTH EVERY DAY Mar 04, 2023 90 Mar 04, 2024 [id number] A Aug 19, 2023 [facility] ORAL DISCONT INUED 03/04/2024 [id number] 3 VERÓNICA PRATT ER 2022 90 [facility] [place] [facility] CALCIUM CARBONATE 650MG TAB CALCIUM CARBONAT E 650MG TAB Disconti nued TAKE ONE TABLET BY MOUTH EVERY DAY Jul 14, 2022 90 Jul 15, 2023 [id number] Mar 02, 2023 DEBRA BECERRA [facility] ORAL DISCONT INUED 07/15/2023 [id number] LENNOX BECERRA 2022 90 [facility] [place] [facility] CARBOXYMETH YLCELLULOSE NA 0.25% SOLN,OPH CARBOXYM ETHYLCEL LULOSE NA 0.25% SOLN,OPH Active INSTILL 2 DROPS IN OPERATIV E EYE EVERY 2 HOURS NEEDED FOR DRY EYES FOR DRY EYES Jun 11, 2023 30 Jun 11, 2024 [id number] Sep 03, 2023 KUSHAL GATICA [facility] OPHTHA LMIC ACTIVE 06/11/2024 [id number] YOLY GATICA 2022 30 [facility] CARBOXYMETH YLCELLULOSE NA 0.25% SOLN,OPH CARBOXYM ETHYLCEL LULOSE NA 0.25% SOLN,OPH Disconti nued INSTILL 2 DROPS IN OPERATIV E EYE EVERY HOUR NEEDED FOR DRYNESS AND IRRITATI ON FOR DRYNESS AND IRRITATI ON Feb 25, 2023 30 Feb 26, 2024 [id number] May 20, 2023 RANDY MELTON [facility] OPHTHA LMIC DISCONT INUED 02/26/2024 [id number] 3 Jovi MELTON 2022 30 [place] [facility] CARBOXYMETH YLCELLULOSE NA 0.25% SOLN,OPH CARBOXYM ETHYLCEL LULOSE NA 0.25% SOLN,OPH Disconti nued INSTILL 2 DROPS IN OPERATIV E EYE EVERY HOUR NEEDED FOR DRYNESS AND IRRITATI ON FOR DRYNESS AND IRRITATI ON January 08, 2023 30 January 09, 2024 [id number] Feb 09, 2023 [facility] (EDIT) 01/09/2024 [id number] Jovi MELTON 2022 30 [facility] CARBOXYMETH YLCELLULOSE NA 0.25% SOLN,OPH CARBOXYM ETHYLCEL LULOSE NA 0.25% SOLN,OPH Disconti nued INSTILL 2 DROPS IN OPERATIV E EYE EVERY HOUR NEEDED FOR DRYNESS AND IRRITATI ON Jul 06, 2022 30 Jul 07, 2023 [id number] Dec 24, 2022 RANDY MELTON [facility] OPHTHA LMIC DISCONT INUED (EDIT) 07/07/2023 [id number] 3 Jovi MELTON 2021 30 [facility] CEPHALEXIN 500MG CAP CEPHALEX IN 500MG CAP Disconti nued TAKE ONE CAPSULE BY MOUTH FOUR TIMES A DAY FOR 7 DAYS Feb 04, 2023 28 Mar 05, 2023 [id number] Feb 04, 2023 АННА COX [facility] ORAL DISCONT INUED 03/05/2023 [id number] TERRY SENIOR 2022 28 [facility] CHOLECALCIF BELA 25MCG (1,000UNIT) TAB CHOLECAL CIFEROL 25MCG (1,000UN IT) TAB Active TAKE ONE TABLET BY MOUTH EVERY DAY Oct 11, 2023 100 Oct 11, 2024 [id number] B Feb 29, 2024 [facility] ORAL ACTIVE 10/11/2024 [id number] 4 VERÓNICA PRATT 2023 100 [facility] [place] [facility] CHOLECALCIF BELA 25MCG (1,000UNIT) TAB CHOLECAL CIFEROL 25MCG (1,000UN IT) TAB Disconti nued TAKE ONE TABLET BY MOUTH EVERY DAY Feb 19, 2023 100 Feb 20, 2024 [id number] A Sep 12, 2023 TERENCE YULI [facility] [place] [facility] [facility] ORAL DISCONT INUED 02/20/2024 [id number] 4 VERÓNICA PRATT 2022 100 [place] [facility] [facility] CHOLECALCIF BELA 25MCG (1,000UNIT) TAB CHOLECAL CIFEROL 25MCG (1,000UN IT) TAB Disconti nued TAKE ONE TABLET BY MOUTH EVERY DAY Oct 07, 2022 100 Oct 08, 2023 [id number] Dec 26, 2022 JOSUÉ STEVEN B [place] [facility] ORAL DISCONT INUED 10/08/2023 [id number] JONE WINTERS 2022 100 [place] [facility] [facility] CYANOCOBALA MIN 1000MCG TAB CYANOCOB ALAMIN 1000MCG TAB Disconti nued TAKE ONE TABLET BY MOUTH EVERY DAY Feb 19, 2023 100 Feb 20, 2024 [id number] B Oct 09, 2023 YULI PRATT [facility] [place] [facility] ORAL DISCONT INUED (EDIT) 02/20/2024 [id number] 4 VERÓNICA PRATT 2022 100 [place] [facility] [facility] CYANOCOBALA MIN 1000MCG TAB CYANOCOB ALAMIN 1000MCG TAB Disconti nued TAKE ONE TABLET BY MOUTH EVERY DAY Aug 12, 2022 100 Aug 13, 2023 [id number] A January 22, 2023 DILCIA ZARAGOZA [place] [facility] ORAL DISCONT INUED 08/13/2023 [id number] 3 Darlin ZARAGOZA 2022 100 [place] [facility] CYANOCOBALA MIN 500MCG TAB CYANOCOB ALAMIN 500MCG TAB Active TAKE ONE TABLET BY MOUTH EVERY DAY FOR B12 SUPPLEME NT FOR B12 SUPPLEME NT Oct 11, 2023 100 Oct 11, 2024 [id number] December 30, 2023 YULI PRATT [facility] [place] [facility] ORAL ACTIVE 10/11/2024 [id number] VERÓNICA PRATT ER 2023 100 [facility] DICLOFENAC NA 1% GEL,TOP DICLOFEN AC NA 1% GEL,TOP Active APPLY 2 GRAMS TOPICALL Y THREE TIMES A DAY NEEDED FOOT PAIN FOOT PAIN Dec 23, 2023 100 Dec 23, 2024 [id number] Feb 11, 2024 YOLANDE CHAVARRIA [facility] TOPICA L ACTIVE 12/23/2024 [id number] Tiffany CHAVARRIA 2023 100 [facility] DICLOFENAC NA 1% GEL,TOP DICLOFEN AC NA 1% GEL,TOP Disconti nued APPLY 2 GRAMS TOPICALL Y THREE TIMES A DAY NEEDED FOOT PAIN FOOT PAIN Sep 09, 2023 100 Sep 09, 2024 [id number] Nov 28, 2023 YOLANDE CHAVARRIA [facility] TOPICA L DISCONT INUED 09/09/2024 [id number] Tiffany CHAVARRIA 2023 100 [facility] DOXYCYCLINE HYCLATE 100MG TAB DOXYCYCL INE HYCLATE 100MG TAB TAKE ONE TABLET BY MOUTH TWICE A DAY FOR PNEUMONI A FOR PNEUMONI A January 06, 2024 10 Feb 05, 2024 [id number] January 06, 2024 ANTONIO LEZAMA [facility] ORAL 02/05/2024 [id number] ANTONIO AREVALO 2023 10 [facility] ERYTHROMYCI N 0.5% OINT,OPH ERYTHROM YCIN 0.5% OINT,OPH APPLY A THIN LAYER TO INCISION (S) TO OPERATIV E EYE FOUR TIMES A DAY Jul 06, 2022 4 Jul 07, 2023 [id number] Dec 24, 2022 RANDY MELTON [facility] OPHTHA LMIC 07/07/2023 [id number] Jovi MELTON 2021 4 [facility] FLUTICASONE 250MCG/SALM ETEROL 50MCG INHL,ORAL,D ISKUS,60 FLUTICAS ONE 250MCG/S ALMETERO L 50MCG INHL,ORA L,DISKUS ,60 Disconti nued INHALE 1 PUFF BY INHALATI ON TWICE A DAY *RINSE MOUTH AFTER EACH USE* Oct 08, 2022 3 Oct 09, 2023 [id number] December 28, 2022 JOSUÉ STEVEN [facility] RESPIR ATORY (INHAL ATION) DISCONT INUED (EDIT) 10/09/2023 [id number] JONE WINTERS 2022 3 [facility] [place] [facility] FLUTICASONE 500MCG/SALM ETEROL 50MCG INHL,ORAL,D ISKUS,60 FLUTICAS ONE 500MCG/S ALMETERO L 50MCG INHL,ORA L,DISKUS ,60 Active INHALE 1 PUFF BY INHALATI ON TWICE A DAY FOR COPD *RINSE MOUTH AFTER EACH USE* FOR COPD Oct 11, 2023 3 Oct 11, 2024 [id number] A January 25, 2024 YULI PRATT [facility] RESPIR ATORY (INHAL ATION) ACTIVE 10/11/2024 [id number] 4 VERÓNICA PRATT 2023 3 [facility] [place] [facility] FLUTICASONE 500MCG/SALM ETEROL 50MCG INHL,ORAL,D ISKUS,60 FLUTICAS ONE 500MCG/S ALMETERO L 50MCG INHL,ORA L,DISKUS ,60 Disconti nued INHALE 1 PUFF BY INHALATI ON TWICE A DAY FOR COPD *RINSE MOUTH AFTER EACH USE* FOR COPD Feb 19, 2023 3 Feb 20, 2024 [id number] Aug 08, 2023 YULI PRATT PHER [facility] RESPIR ATORY (INHAL ATION) DISCONT INUED 02/20/2024 [id number] 3 VERÓNICA PRATT 2022 3 [place] [facility] FLUTICASONE PROPIONATE 50MCG/SPRAY SOLN,NASAL, 16GM FLUTICAS ONE PROPIONA TE 50MCG/SP RAY SOLN,NATALIIA AL,16GM Active: Susp SPRAY 2 SPRAYS IN EACH NOSTRIL EVERY DAY FOR CONGESTI ON FOR CONGESTI ON Oct 11, 2023 3 Oct 11, 2024 [id number] Mar 29, 2024 TERENCE YULI [facility] NASAL SUSPEND ED 10/11/2024 [id number] 4 VERÓNICA PRATT 2023 3 [facility] [place] [facility] GABAPENTIN 300MG CAP GABAPENT IN 300MG CAP Active: Susp TAKE TWO CAPSULES BY MOUTH TWICE A DAY FOR NERVE PAIN IN HANDS FOR NERVE PAIN IN HANDS Oct 11, 2023 360 Oct 11, 2024 [id number] A Apr 24, 2024 YULI PRATT JONATHAN [facility] ORAL SUSPEND ED 10/11/2024 [id number] 4 VERÓNICA PRATT 2023 360 [facility] GABAPENTIN 300MG CAP GABAPENT IN 300MG CAP Disconti nued TAKE TWO CAPSULES BY MOUTH TWICE A DAY FOR NERVE PAIN IN HANDS FOR NERVE PAIN IN HANDS January 08, 2023 360 January 09, 2024 [id number] Aug 08, 2023 DEBRA BECERRA [facility] ORAL DISCONT INUED 01/09/2024 [id number] LENNOX BECERRA 2022 360 [facility] GABAPENTIN 300MG CAP GABAPENT IN 300MG CAP Disconti nued TAKE TWO CAPSULES BY MOUTH TWICE A DAY FOR NERVE PAIN IN HANDS Jun 09, 2022 240 Jun 10, 2023 [id number] January 05, 2023 DEBRA BECERRA [facility] ORAL DISCONT INUED 06/10/2023 [id number] LENNOX BECERRA 2021 240 [facility] GUAIFENESIN 200MG TAB GUAIFENE SIN 200MG TAB Active TAKE ONE TABLET BY MOUTH THREE TIMES A DAY NEEDED FOR PHLEGM FOR PHLEGM May 20, 2023 100 May 20, 2024 [id number] A Jul 13, 2023 YULI PRATT JONATHAN [facility] ORAL ACTIVE 05/20/2024 [id number] 3 VERÓNICA PRATT 2022 100 [facility] GUAIFENESIN 200MG TAB GUAIFENE SIN 200MG TAB Disconti nued TAKE ONE TABLET BY MOUTH THREE TIMES A DAY NEEDED FOR PHLEGM FOR PHLEGM Feb 19, 2023 100 Feb 20, 2024 [id number] Apr 10, 2023 MASHAYULI Santiago [facility] [place] [facility] ORAL DISCONT INUED 02/20/2024 [id number] 3 VERÓNICA PRATT ER 2022 100 [facility] [place] [facility] HYDROCHLORO THIAZIDE 12.5MG TAB HYDROCHL OROTHIAZ JAZZ 12.5MG TAB Disconti nued TAKE ONE TABLET BY MOUTH EVERY DAY FOR BLOOD PRESSURE FOR BLOOD PRESSURE Feb 19, 2023 90 Feb 20, 2024 [id number] Aug 08, 2023 TERENCE YULI [facility] ORAL DISCONT INUED (EDIT) 02/20/2024 [id number] 3 VERÓNICA PRATT ER 2022 90 [facility] HYDROCHLORO THIAZIDE 25MG TAB HYDROCHL OROTHIAZ JAZZ 25MG TAB Active: Susp TAKE ONE TABLET BY MOUTH EVERY DAY FOR BLOOD PRESSURE NEW STRENGTH FOR BLOOD PRESSURE Oct 11, 2023 90 Oct 11, 2024 [id number] Mar 29, 2024 YULI PRATT JONATHAN [facility] ORAL SUSPEND ED 10/11/2024 [id number] 4 VERÓNICA PRATT 2023 90 [facility] [place] [facility] IPRATROPIUM BR 0.03% SOLN,SPRAY, NASAL IPRATROP IUM BR 0.03% SOLN,SPR AY,NASAL Disconti nued SPRAY 2 SPRAYS IN EACH NOSTRIL TWICE A DAY FOR ALLERGIE S FOR ALLERGIE S Feb 09, 2023 30 Feb 10, 2024 [id number] Jul 31, 2023 DILCIA ZARAGOZA [facility] NASAL DISCONT INUED BY PROVIDE R 02/10/2024 [id number] 3 Darlin ZARAGOZA 2022 30 [place] [facility] IPRATROPIUM BR 17MCG/SPRAY AEROSOL,INH L IPRATROP IUM BR 17MCG/SP RAY AEROSOL, INHL Disconti nued INHALE 2 PUFFS EVERY 6 HOURS NEEDED FOR BREATHIN G Jun 02, 2022 2 Jun 03, 2023 [id number] Jan 30, 2023 DEBRA BECERRA [facility] DISCONT INUED 06/03/2023 [id number] LENNOX BECERRA 2021 2 [facility] PREDNISONE 20MG TAB PREDNISO NE 20MG TAB TAKE TWO TABLETS BY MOUTH EVERY DAY FOR COPD EXACERBA TION FOR COPD EXACERBA TION January 06, 2024 10 Feb 05, 2024 [id number] January 06, 2024 ANTONIO LEZAMA [facility] ORAL 02/05/2024 [id number] ANTONIO AREVALO 2023 10 [facility] RIVAROXABAN 20MG TAB RIVAROXA BAN 20MG TAB Disconti nued TAKE ONE TABLET BY MOUTH EVERY DAY WITH THE LARGEST MEAL OF THE DAY TO TREAT AND/OR PREVENT BLOOD CLOTS Jun 09, 2022 90 Jun 10, 2023 [id number] C Feb 25, 2023 CONSTANTINE DIAZ [facility] ORAL DISCONT INUED 06/10/2023 [id number] CONSTANTINE DIAZ 2022 90 [facility] RIVAROXABAN 20MG TAB RIVAROXA BAN 20MG TAB TAKE ONE TABLET BY MOUTH EVERY DAY WITH THE LARGEST MEAL OF THE DAY TO TREAT AND/OR PREVENT BLOOD CLOTS Feb 10, 2023 90 Feb 11, 2024 [id number] D Nov 12, 2023 ERIC LONDON Y [facility] ORAL 02/11/2024 [id number] 4 Eva LONDON 2022 90 [facility] SERTRALINE HCL 100MG TAB SERTRALI NE HCL 100MG TAB Active TAKE ONE AND ONE-HALF TABLETS BY MOUTH EVERY DAY Sep 04, 2023 135 Sep 04, 2024 [id number] B January 16, 2024 Erica HALEY [facility] ORAL ACTIVE 09/04/2024 [id number] 4 IDALIA HALEY 2023 135 [facility] SERTRALINE HCL 100MG TAB SERTRALI NE HCL 100MG TAB Disconti nued TAKE ONE AND ONE-HALF TABLETS BY MOUTH EVERY DAY Dec 27, 2022 135 Dec 28, 2023 [id number] A Jul 30, 2023 Erica HALEY [facility] ORAL DISCONT INUED 12/28/2023 [id number] 3 IDALIA HALEY B 2022 135 [facility] TIOTROPIUM 2.5MCG/ACTU AT INHL,ORAL,6 0D,4GM TIOTROPI UM 2.5MCG/A CTUAT INHL,ORA L,60D,4G M Active INHALE TWO PUFFS BY INHALATI ON EVERY DAY FOR COPD FOR COPD Oct 11, 2023 3 Oct 11, 2024 [id number] A January 25, 2024 YULI PRATT [facility] RESPIR ATORY (INHAL ATION) ACTIVE 10/11/2024 [id number] VERÓNICA PRATT 2023 3 [facility] TIOTROPIUM 2.5MCG/ACTU AT [facility],ORAL,6 0D,4GM TIOTROPI UM 2.5MCG/A CTUAT [facility],ORA L,60D,4G M Disconti nued INHALE TWO PUFFS BY INHALATI ON EVERY DAY FOR COPD FOR COPD Feb 19, 2023 3 Feb 20, 2024 [id number] Aug 08, 2023 YULI PRATT [facility] (INHAL ATION) DISCONT INUED 02/20/2024 [id number] VERÓNICA PRATT 2022 3 [facility] TOPIRAMATE 25MG TAB TOPIRAMA TE 25MG TAB Disconti nued TAKE ONE TABLET BY MOUTH EVERY EVENING FOR 7 DAYS, THEN TAKE ONE TABLET TWICE A DAY FOR 7 DAYS, THEN TAKE ONE TABLET EVERY MORNING FOR 7 DAYS, AND TAKE TWO TABLETS EVERY EVENING FOR 7 DAYS, THEN TAKE TWO TABLETS TWICE A DAY FOR TREMOR FOR TREMOR Nov 10, 2023 318 Feb 08, 2024 [id number] Nov 12, 2023 ALHAJI EUBANKS [facility] ORAL DISCONT INUED BY PROVIDE R 02/08/2024 [id number] Yessy EUBANKS 2023 318 [facility] ZOLPIDEM TARTRATE 5MG TAB ZOLPIDEM TARTRATE 5MG TAB Disconti nued TAKE ONE TABLET BY MOUTH ONCE BRING TO SLEEP LAB FOR SLEEP STUDY PROCEDUR E. FOR SLEEP Jun 29, 2023Jul 29, 2023 [id number] Jun 29, 2023 John SORIANO [facility] ORAL DISCONT INUED BY PROVIDE R 07/29/2023 [id number] JORGE SORIANO 2022 1 [facility] ZOLPIDEM TARTRATE 5MG TAB ZOLPIDEM TARTRATE 5MG TAB Disconti nued TAKE ONE TABLET BY MOUTH ONCE FOR SLEEP BRING TO SLEEP LAB FOR SLEEP STUDY PROCEDUR E. FOR SLEEP Jun 21, 2023Jul 21, 2023 [id number] Jun 21, 2023 John SORIANO [facility] ORAL DISCONT INUED 07/21/2023 [id number] JORGE SORIANO 2022 1 [facility] Allergies, Adverse Reactions, Alerts Combined list of allergies from [facility] Defense and [facility] facilities. It does not include entries that were removed or entered in error. Substance Category Reaction Severity Reaction type Status Date Reported Comments Source CONTRAST MEDIA Propensity to adverse reactions to drug (finding) Eruption active 2 [facility] Propensity to adverse reactions to substance (finding) active 0 [facility] LISINOPRIL Propensity to adverse reactions to drug (finding) Hyperkalemi a active 8 [facility] LOBSTER Propensity to adverse reactions to food (finding) Nausea and vomiting active 7 [facility] METOPROLOL Propensity to adverse reactions to drug (finding) Bradycardia active 8 [facility] PENICILLIN Propensity to adverse reactions to drug (finding) HIVES active 4 [facility] SCALLOPS Propensity to adverse reactions to substance (finding) Nausea and vomiting active 7 [facility] SIMVASTATIN Propensity to adverse reactions to drug (finding) Itching, Facial swelling active 6 [facility] TOPIRAMATE Propensity to adverse reactions to drug (finding) Syncope active 4 [facility] ZOLPIDEM Propensity to adverse reactions to drug (finding) Disorientat ed active 4 [facility] Immunizations Combined list of available immunizations from the Department of Defense and Veterans Affairs facilities. Immunization Series Date Given Administered By Site Reaction Lot Number CVX Code Drug Linoleum Layer Status Comments Source COVID-19 (Way2Pay), MRNA, LNP-S, PF, CHERYL-SUCROSE, 30 MCG/0.3 ML (AGES 12+ YEARS) 1 [address] CAR[address]IN RIGHT DELTO ID [id number] 309 complet ed [facility] INFLUENZA, HIGH-DOSE, QUADRIVALENT 20[address]IN RIGHT DELTO ID [id number] 197 complet ed [facility] TDAP 2021 MEDFU,BAYAYBI N A LEFT DELTO ID [id number] 115 complet ed [facility] COVID-19 (Way2Pay), MRNA, LNP-S, BIVALENT BOOSTER, PF, 30 MCG/0.3 ML DOSE 1 2021 SAMANTHA PRECIADO TIERRA LEFT DELTO ID [id number] 300 complet ed [facility] INFLUENZA VACCINE, QUADRIVALENT, ADJUVANTED 2021 205 complet ed [facility] COVID-19 (Way2Pay), MRNA, LNP-S, PF, 30 MCG/0.3 ML DOSE, CHERYL-SUCROSE (AGES 12+ YEARS) 3 2021 217 complet ed PFR; [id number]; 2 [facility] COVID-19 (Way2Pay), MRNA, LNP-S, PF, 30 MCG/0.3 ML DOSE 3 2020 208 complet ed [facility] INFLUENZA, INJECTABLE, QUADRIVALENT, PRESERVATIVE FREE 2020 150 complet ed [facility] COVID-19 (PFIZER), MRNA, LNP-S, PF, 30 MCG/0.3 ML DOSE 2 2020 208 complet ed PFR; [id number]; 1 [facility] COVID-19 (PFIZER), MRNA, LNP-S, PF, 30 MCG/0.3 ML DOSE 1 2020 208 complet ed PFR; [id number]; 1 [facility] INFLUENZA, INJECTABLE, QUADRIVALENT, PRESERVATIVE FREE 2019 150 complet ed [facility] INFLUENZA, SEASONAL, INJECTABLE, PRESERVATIVE FREE 2018 140 complet ed [facility] ZOSTER RECOMBINANT 2 2018 187 complet ed [facility] ZOSTER RECOMBINANT 1 2018 187 complet ed [facility] INFLUENZA, SEASONAL, INJECTABLE, PRESERVATIVE FREE 2017 140 complet ed [facility] INFLUENZA, HIGH DOSE SEASONAL 2016 135 complet ed [facility] INFLUENZA, HIGH DOSE SEASONAL 2015 135 complet ed [facility] INFLUENZA, SEASONAL, INJECTABLE, PRESERVATIVE FREE 2014 140 complet ed [facility] PNEUMOCOCCAL CONJUGATE PCV 13 2014 133 complet ed wyeth;l99 262;10/16 [facility] INFLUENZA, UNSPECIFIED FORMULATION 2013 88 complet ed [facility] INFLUENZA, UNSPECIFIED FORMULATION 2012 88 complet ed [facility] TDAP 2012 115 complet ed glaxosmit hkline;ac [id number]; 5 [facility] INFLUENZA, UNSPECIFIED FORMULATION 2011 88 complet ed [facility] ZOSTER LIVE 2011 121 complet ed [employer] [id number], 02/18/13 [facility] PNEUMOCOCCAL, UNSPECIFIED FORMULATION 2011 109 complet ed [employer] [id number] [facility] INFLUENZA, UNSPECIFIED FORMULATION 2010 88 complet ed [facility] INFLUENZA, UNSPECIFIED FORMULATION 2009 88 complet ed [facility] NOVEL INFLUENZA-H1N 1-09, ALL FORMULATIONS 2009 128 complet ed [facility] NOVEL INFLUENZA-H1N 1-09, ALL FORMULATIONS 2009 128 complet ed [facility] INFLUENZA, UNSPECIFIED FORMULATION 2008 88 complet ed [facility] INFLUENZA, UNSPECIFIED FORMULATION 2007 88 complet ed [facility] INFLUENZA, UNSPECIFIED FORMULATION 2006 88 complet ed [facility] INFLUENZA, UNSPECIFIED FORMULATION 2005 88 complet ed [facility] INFLUENZA, UNSPECIFIED FORMULATION 2004 88 complet ed [facility] INFLUENZA, UNSPECIFIED FORMULATION 2003 ZALLAR,ELIZABETH 88 complet ed [facility] INFLUENZA, UNSPECIFIED FORMULATION 2002 88 complet [facility] PNEUMOCOCCAL, UNSPECIFIED FORMULATION 2002 109 complet [facility] TD(ADULT) UNSPECIFIED FORMULATION 2002 139 complet [facility] INFLUENZA, UNSPECIFIED FORMULATION 1998 STAFF,NURSE 88 complet [facility] INFLUENZA (HISTORICAL) 1996 STAFF,NURSE 88 complet [facility] Results Combined list of recent chemistry, hematology and other laboratory results from Department of Defense and Veterans Affairs, ranging from 15 months to all on record, depending upon the facility. Order Name Results Value Reference Range Date Interpretation Specimen Comments Source ELP/IMMF IX,SERUM PANEL PROTEIN [MASS/VOLU ME] IN SERUM OR PLASMA 8.0 g/dL 6.0 - 8.3 11/04 Specimen Type: SERUM No comment entered. Ordering Provider: DWAYNE EUBANKS Report Released Date/Time: Nov 05, 2023 10:03 AM Reporting Lab: [facility] [address] Performing Lab: [facility] [address] [facility] ELP/IMMF IX,SERUM PANEL ALBUMIN [MASS/VOLU ME] IN SERUM OR PLASMA BY ELECTROPHO RESIS 4.22 g/dL 3.66 - 4.78 11/04 Specimen Type: SERUM No comment entered. Ordering Provider: DWAYNE EUBANKS Report Released Date/Time: Nov 05, 2023 10:03 AM Reporting Lab: [facility] [address] Performing Lab: [facility] [address] [place] [facility] ELP/IMMF IX,SERUM PANEL ALPHA 1 GLOBULIN [MASS/VOLU ME] IN SERUM OR PLASMA BY ELECTROPHO RESIS 0.41 g/dL 0.14 - 0.38 11/04 H Specimen Type: SERUM No comment entered. Ordering Provider: DWAYNE EUBANKS Report Released Date/Time: Nov 05, 2023 10:03 AM Reporting Lab: [facility] [address] Performing Lab: [facility] [address] [place] [facility] ELP/IMMF IX,SERUM PANEL ALPHA 2 GLOBULIN [MASS/VOLU ME] IN SERUM OR PLASMA BY ELECTROPHO RESIS 0.81 g/dL 0.50 - 0.90 11/04 Specimen Type: SERUM No comment entered. Ordering Provider: DWAYNE EUBANKS Report Released Date/Time: Nov 05, 2023 10:03 AM Reporting Lab: [facility] [address] Performing Lab: [facility] [address] [place] [facility] ELP/IMMF IX,SERUM PANEL BETA 1 GLOBULIN [MASS/VOLU ME] IN SERUM OR PLASMA BY ELECTROPHO RESIS 0.52 g/dL 0.33 - 0.55 11/04 Specimen Type: SERUM No comment entered. Ordering Provider: DWAYNE EUBANKS Report Released Date/Time: Nov 05, 2023 10:03 AM Reporting Lab: [facility] [address] Performing Lab: [facility] [address] [place] [facility] ELP/IMMF IX,SERUM PANEL BETA 2 GLOBULIN [MASS/VOLU ME] IN SERUM OR PLASMA BY ELECTROPHO RESIS 0.44 g/dL 0.20 - 0.52 11/04 Specimen Type: SERUM No comment entered. Ordering Provider: DWAYNE EUBANKS Report Released Date/Time: Nov 05, 2023 10:03 AM Reporting Lab: [facility] [address] Performing Lab: [facility] [address] [place] [facility] ELP/IMMF IX,SERUM PANEL GAMMA GLOBULIN [MASS/VOLU ME] IN SERUM OR PLASMA BY ELECTROPHO RESIS 1.61 g/dL 0.58 - 1.72 11/04 Specimen Type: SERUM No comment entered. Ordering Provider: DWAYNE EUBANKS Report Released Date/Time: Nov 05, 2023 10:03 AM Reporting Lab: [id number] Performing Lab: [place] [address] [place] [facility] ELP/IMMF IX,SERUM PANEL PROTEIN [MASS/VOLU ME] IN SERUM OR PLASMA 8.0 g/dL 6.0 - 8.3 11/04 Specimen Type: SERUM No comment entered. Ordering Provider: DWAYNE EUBANKS Report Released Date/Time: Nov 05, 2023 10:03 AM Reporting Lab: [place] [id number] Performing Lab: [place] [id number] [facility] ELP/IMMF IX,SERUM PANEL IMMUNOELEC TROPHORESI S FOR SERUM OR PLASMA NO MONOCLON ALS DETECTED 11/04 Specimen Type: SERUM No comment entered. Ordering Provider: DWAYNE EUBANKS Report Released Date/Time: Nov 05, 2023 10:03 AM Reporting Lab: [place] [address] Performing Lab: [place] [address] [facility] HEMOGLOB IN A1C HEMOGLOBIN A1C/HEMOGL OBIN.TOTAL IN BLOOD 5.5 4.0 - 6.0 11/04 Specimen Type: BLOOD Comment: Values obtained from A1C measurement s can vary. For typical A1C assays, a reported value of 7.0 could actually be between 6.7 and 7.3 if measured by a reference method. A reported value of 9.0 could actually be between 8.7 and 9.3. Ref: http://www. ngsp.org/[place] Pdata.asp Ordering Provider: DWAYNE EUBANKS Report Released Date/Time: Nov 05, 2023 10:04 AM Reporting Lab: [place] [address] Performing Lab: [facility] [address] [place] [facility] B 12 COBALAMIN (VITAMIN B12) [MASS/VOLU ME] IN SERUM OR PLASMA 899 pg/mL 213 - 816 10/11 H Specimen Type: SERUM No comment entered. Ordering Provider: PJ PRATT Report Released Date/Time: Feb 19, 2023 10:06 AM Reporting Lab: [facility] [address] Performing Lab: [facility] [address] [place] [facility] CBC LEUKOCYTES [#/VOLUME] IN BLOOD BY AUTOMATED COUNT 5.19 10*3/uL 4.0 - 11.0 10/11 Specimen Type: BLOOD No comment entered. Ordering Provider: PJ PRATT Report Released Date/Time: Feb 19, 2023 10:06 AM Reporting Lab: [facility] [address] Performing Lab: [facility] [address] [place] [facility] CBC ERYTHROCYT ES [#/VOLUME] IN BLOOD BY AUTOMATED COUNT 4.89 10*6/uL 4.6 - 6.2 10/11 Specimen Type: BLOOD No comment entered. Ordering Provider: PJ PRATT Report Released Date/Time: Feb 19, 2023 10:06 AM Reporting Lab: [facility] [address] Performing Lab: [facility] [address] [place] [facility] CBC HEMOGLOBIN [MASS/VOLU ME] IN BLOOD 14.8 g/dL 13.5 - 17.9 10/11 Specimen Type: BLOOD No comment entered. Ordering Provider: PJ PRATT Report Released Date/Time: Feb 19, 2023 10:06 AM Reporting Lab: [facility] [address] Performing Lab: [facility] [address] [place] [facility] CBC HEMATOCRIT [VOLUME FRACTION] OF BLOOD BY AUTOMATED COUNT 46.3 41 - 54 10/11 Specimen Type: BLOOD No comment entered. Ordering Provider: PJ PRATT Report Released Date/Time: Feb 19, 2023 10:06 AM Reporting Lab: [facility] [address] Performing Lab: [facility] [address] [place] [facility] CBC MCV [ENTITIC VOLUME] BY AUTOMATED COUNT 94.7 fL 80 - 100 10/11 Specimen Type: BLOOD No comment entered. Ordering Provider: PJ PRATT Report Released Date/Time: Feb 19, 2023 10:06 AM Reporting Lab: [facility] [address] Performing Lab: [facility] [address] [place] [facility] CBC MCH [ENTITIC MASS] BY AUTOMATED COUNT 30.3 pg 27 - 33 10/11 Specimen Type: BLOOD No comment entered. Ordering Provider: PJ PRATT Report Released Date/Time: Feb 19, 2023 10:06 AM Reporting Lab: [facility] [address] Performing Lab: [facility] [address] [place] [facility] CBC MCHC [MASS/VOLU ME] BY AUTOMATED COUNT 32.0 g/dL 32.0 - 37.5 10/11 Specimen Type: BLOOD No comment entered. Ordering Provider: PJ PRATT Report Released Date/Time: Feb 19, 2023 10:06 AM Reporting Lab: [facility] [address] Performing Lab: [facility] [address] [place] [facility] CBC PLATELETS [#/VOLUME] IN BLOOD BY AUTOMATED COUNT 159 10*3/uL 150 - 400 10/11 Specimen Type: BLOOD No comment entered. Ordering Provider: PJ PRATT Report Released Date/Time: Feb 19, 2023 10:06 AM Reporting Lab: [facility] [address] Performing Lab: [facility] [address] [place] [facility] CBC PLATELET MEAN VOLUME [ENTITIC VOLUME] IN BLOOD BY AUTOMATED COUNT 10.1 fL 7.4 - 10.4 10/11 Specimen Type: BLOOD No comment entered. Ordering Provider: PJ PRATT Report Released Date/Time: Feb 19, 2023 10:06 AM Reporting Lab: [facility] [address] Performing Lab: [facility] [address] [place] [facility] CBC ERYTHROCYT E DISTRIBUTI ON WIDTH [RATIO] BY AUTOMATED COUNT 16.7 11.5 - 14.5 10/11 H Specimen Type: BLOOD No comment entered. Ordering Provider: PJ PRATT Report Released Date/Time: Feb 19, 2023 10:06 AM Reporting Lab: [facility] [address] Performing Lab: [facility] [address] [place] [facility] COMPREHE NSIVE METABOLI C PANEL+MG CREATININE [MASS/VOLU ME] IN SERUM OR PLASMA 1.2 mg/dL 0.7 - 1.2 10/11 Specimen Type: PLASMA No comment entered. Ordering Provider: PJ PRATT Report Released Date/Time: Feb 19, 2023 10:06 AM Reporting Lab: [facility] [address] Performing Lab: [facility] [address] [place] [facility] COMPREHE NSIVE METABOLI C PANEL+MG UREA NITROGEN [MASS/VOLU ME] IN SERUM OR PLASMA 17 mg/dL 8 - 26 10/11 Specimen Type: PLASMA No comment entered. Ordering Provider: PJ PRATT Report Released Date/Time: Feb 19, 2023 10:06 AM Reporting Lab: [facility] [address] Performing Lab: [facility] [address] [place] [facility] COMPREHE NSIVE METABOLI C PANEL+MG GLUCOSE [MASS/VOLU ME] IN SERUM OR PLASMA 102 mg/dL 70 - 100 10/11 H Specimen Type: PLASMA No comment entered. Ordering Provider: PJ PRATT Report Released Date/Time: Feb 19, 2023 10:06 AM Reporting Lab: [facility] [address] Performing Lab: [facility] [address] [place] [facility] COMPREHE NSIVE METABOLI C PANEL+MG SODIUM [MOLES/VOL UME] IN SERUM OR PLASMA 139 mmol/L 136 - 145 10/11 Specimen Type: PLASMA No comment entered. Ordering Provider: PJ PRATT Report Released Date/Time: Feb 19, 2023 10:06 AM Reporting Lab: [facility] [address] Performing Lab: [facility] [address] [place] [facility] COMPREHE NSIVE METABOLI C PANEL+MG POTASSIUM [MOLES/VOL UME] IN SERUM OR PLASMA 4.8 mmol/L 3.5 - 5.1 10/11 Specimen Type: PLASMA No comment entered. Ordering Provider: PJ PRATT Report Released Date/Time: Feb 19, 2023 10:06 AM Reporting Lab: [facility] [address] Performing Lab: [facility] [address] [place] [facility] COMPREHE NSIVE METABOLI C PANEL+MG CHLORIDE [MOLES/VOL UME] IN SERUM OR PLASMA 99 mmol/L 98 - 107 10/11 Specimen Type: PLASMA No comment entered. Ordering Provider: PJ PRATT Report Released Date/Time: Feb 19, 2023 10:06 AM Reporting Lab: [facility] [address] Performing Lab: [facility] [address] [place] [facility] COMPREHE NSIVE METABOLI C PANEL+MG CARBON DIOXIDE, TOTAL [MOLES/VOL UME] IN SERUM OR PLASMA 28 mmol/L 22 - 29 10/11 Specimen Type: PLASMA No comment entered. Ordering Provider: PJ PRATT Report Released Date/Time: Feb 19, 2023 10:06 AM Reporting Lab: [facility] [address] Performing Lab: [facility] [address] [place] [facility] COMPREHE NSIVE METABOLI C PANEL+MG CALCIUM [MASS/VOLU ME] IN SERUM OR PLASMA 10.3 mg/dL 8.4 - 10.2 10/11 H Specimen Type: PLASMA No comment entered. Ordering Provider: PJ PRATT Report Released Date/Time: Feb 19, 2023 10:06 AM Reporting Lab: [facility] [address] Performing Lab: [facility] [address] [place] [facility] COMPREHE NSIVE METABOLI C PANEL+MG PROTEIN [MASS/VOLU ME] IN SERUM OR PLASMA 8.7 g/dL 6.0 - 8.3 10/11 H Specimen Type: PLASMA No comment entered. Ordering Provider: PJ PRATT Report Released Date/Time: Feb 19, 2023 10:06 AM Reporting Lab: [facility] [address] Performing Lab: [facility] [address] [place] [facility] COMPREHE NSIVE METABOLI C PANEL+MG ALBUMIN [MASS/VOLU ME] IN SERUM OR PLASMA 4.5 g/dL 3.5 - 5.2 10/11 Specimen Type: PLASMA No comment entered. Ordering Provider: PJ PARTT Report Released Date/Time: Feb 19, 2023 10:06 AM Reporting Lab: [facility] [address] Performing Lab: [facility] [address] [place] [facility] COMPREHE NSIVE METABOLI C PANEL+MG BILIRUBIN. TOTAL [MASS/VOLU ME] IN SERUM OR PLASMA 1.1 mg/dL 0.2 - 1.2 10/11 Specimen Type: PLASMA No comment entered. Ordering Provider: PJ PRATT Report Released Date/Time: Feb 19, 2023 10:06 AM Reporting Lab: [facility] [address] Performing Lab: [facility] [address] [place] [facility] COMPREHE NSIVE METABOLI C PANEL+MG MAGNESIUM [MASS/VOLU ME] IN SERUM OR PLASMA 2.0 mg/dL 1.6 - 2.6 10/11 Specimen Type: PLASMA No comment entered. Ordering Provider: PJ PRATT Report Released Date/Time: Feb 19, 2023 10:06 AM Reporting Lab: [facility] [address] Performing Lab: [facility] [address] [place] [facility] COMPREHE NSIVE METABOLI C PANEL+MG ANION GAP IN SERUM OR PLASMA 12 mmol/L 5 - 15 10/11 Specimen Type: PLASMA No comment entered. Ordering Provider: PJ PRATT Report Released Date/Time: Feb 19, 2023 10:06 AM Reporting Lab: [facility] [address] Performing Lab: [facility] [address] [place] [facility] COMPREHE NSIVE METABOLI C PANEL+MG ALKALINE PHOSPHATAS E [ENZYMATIC ACTIVITY/V OLUME] IN SERUM OR PLASMA 94 U/L 40 - 150 10/11 Specimen Type: PLASMA No comment entered. Ordering Provider: PJ PRATT Report Released Date/Time: Feb 19, 2023 10:06 AM Reporting Lab: [facility] [address] Performing Lab: [facility] [address] [place] [facility] COMPREHE NSIVE METABOLI C PANEL+MG ALANINE AMINOTRANS FERASE [ENZYMATIC ACTIVITY/V OLUME] IN SERUM OR PLASMA 17 U/L <55 - 55 10/11 Specimen Type: PLASMA No comment entered. Ordering Provider: PJ PRATT Report Released Date/Time: Feb 19, 2023 10:06 AM Reporting Lab: [facility] [address] Performing Lab: [facility] [address] [place] [facility] COMPREHE NSIVE METABOLI C PANEL+MG ASPARTATE AMINOTRANS FERASE [ENZYMATIC ACTIVITY/V OLUME] IN SERUM OR PLASMA 29 U/L <34 - 34 10/11 Specimen Type: PLASMA No comment entered. Ordering Provider: PJ PRATT Report Released Date/Time: Feb 19, 2023 10:06 AM Reporting Lab: [facility] [address] Performing Lab: [facility] [address] [place] [facility] COMPREHE NSIVE METABOLI C PANEL+MG GLOMERULAR FILTRATION RATE/1.73 SQ M.PREDICTE D [VOLUME RATE/AREA] IN SERUM, PLASMA OR BLOOD BY CREATININE -BASED FORMULA (CKD-EPI 2020) 62 60 10/11 Specimen Type: PLASMA No comment entered. Ordering Provider: PJ PRATT Report Released Date/Time: Feb 19, 2023 10:06 AM Reporting Lab: [facility] [address] Performing Lab: [facility] [address] [place] [facility] LIPID PANEL,NO N-FASTIN G CHOLESTERO L [MASS/VOLU ME] IN SERUM OR PLASMA 160 mg/dL <199 - 199 10/11 Specimen Type: PLASMA No comment entered. Ordering Provider: PJ PRATT Report Released Date/Time: Feb 19, 2023 10:06 AM Reporting Lab: [facility] [address] Performing Lab: [facility] [address] [place] [facility] LIPID PANEL,NO N-FASTIN G CHOLESTERO L IN HDL [MASS/VOLU ME] IN SERUM OR PLASMA 76 mg/dL 40 10/11 Specimen Type: PLASMA No comment entered. Ordering Provider: PJ PRATT Report Released Date/Time: Feb 19, 2023 10:06 AM Reporting Lab: [facility] [address] Performing Lab: [facility] [address] [place] [facility] LIPID PANEL,NO N-FASTIN G CHOLESTERO L IN LDL [MASS/VOLU ME] IN SERUM OR PLASMA BY CALCULATIO N 67 mg/dL <99 - 99 10/11 Specimen Type: PLASMA No comment entered. Ordering Provider: PJ PRATT Report Released Date/Time: Feb 19, 2023 10:06 AM Reporting Lab: [facility] [address] Performing Lab: [facility] [address] [place] [facility] LIPID PANEL,NO N-FASTIN G CHOLESTERO L IN VLDL [MASS/VOLU ME] IN SERUM OR PLASMA BY CALCULATIO N 17 mg/dL <29 - 29 10/11 Specimen Type: PLASMA No comment entered. Ordering Provider: PJ PRATT Report Released Date/Time: Feb 19, 2023 10:06 AM Reporting Lab: [facility] [address] Performing Lab: [facility] [address] [place] [facility] LIPID PANEL,NO N-FASTIN G CHOLESTERO L NON HDL [MASS/VOLU ME] IN SERUM OR PLASMA 84 mg/dL <129 - 129 10/11 Specimen Type: PLASMA No comment entered. Ordering Provider: PJ PRATT Report Released Date/Time: Feb 19, 2023 10:06 AM Reporting Lab: [facility] [address] Performing Lab: [facility] [address] [place] [facility] LIPID PANEL,NO N-FASTIN G TRIGLYCERI DE [MASS/VOLU ME] IN SERUM OR PLASMA 84 mg/dL <149 - 149 10/11 Specimen Type: PLASMA No comment entered. Ordering Provider: PJ PRATT Report Released Date/Time: Feb 19, 2023 10:06 AM Reporting Lab: [facility] [address] Performing Lab: [facility] [address] [place] [facility] TSH W/REFLEX TO FREE T4 THYROTROPI N [UNITS/VOL UME] IN SERUM OR PLASMA 1.81 u[IU]/mL 0.35 - 4.94 10/11 Specimen Type: PLASMA No comment entered. Ordering Provider: PJ PRATT Report Released Date/Time: Feb 19, 2023 10:06 AM Reporting Lab: [facility] [address] Performing Lab: [facility] [address] [place] [facility] VIT D 25-OH,TO ALISTAIR 25-HYDROXY VITAMIN D3 [MASS/VOLU ME] IN SERUM OR PLASMA 44 ng/mL 12 - 50 10/11 Specimen Type: SERUM No comment entered. Ordering Provider: PJ PRATT Report Released Date/Time: Feb 19, 2023 10:09 AM Reporting Lab: [facility] [phone] Performing Lab: [facility] [address] GEN IS [facility] ANCA NEUTROPHIL CYTOPLASMI C AB.CLASSIC [PRESENCE] IN SERUM NEGATIVE 04/08 Specimen Type: SERUM No comment entered. Ordering Provider: GILBERT MCKENZIE Report Released Date/Time: Apr 08, 2023 10:05 AM Reporting Lab: [facility] [phone] Performing Lab: [facility] [address] GEN [facility] ANCA NEUTROPHIL CYTOPLASMI C AB.PERINUC LEAR [PRESENCE] IN SERUM BY IMMUNOFLUO RESCENCE NEGATIVE 04/08 Specimen Type: SERUM No comment entered. Ordering Provider: GILBERT MCKENZIE Report Released Date/Time: Apr 08, 2023 10:05 AM Reporting Lab: [facility] [phone] Performing Lab: [facility] [address] GEN [facility] ISMAEL WITH REFLEX TO MORIAH/DNA NUCLEAR AB [PRESENCE] IN SERUM NEGATIVE 04/08 Specimen Type: SERUM No comment entered. Ordering Provider: GILBERT MCKENZIE Report Released Date/Time: Apr 08, 2023 10:05 AM Reporting Lab: [facility] [phone] Performing Lab: [facility] [address] [facility] Vital Signs Combined list of inpatient and outpatient Vital Signs from Department of Defense and Veterans Affairs, ranging from 12 months to all on record, depending upon the facility. Vital Sign Value Date Comments Source Encounters Combined list of: 1) Encounters from Department of Veterans Affairs facilities going back up to thelast 18 months. 2) Encounters from the Department of Defense facilities going back up to 280 months. 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, left eye<br/ > JUAN SALDIVAR 10/07 [facility] Outpatient Encounter [id number] 11/04 [facility] TTE W/DOPPLER COMPLETE [id number] Diagnos is: ICD-10- CM I25.10 Athscl heart disease of [place] coronar y artery w/o ang pctrs<b r/> AFSANEH SUAREZ NZI 11/04 [facility] Outpatient Encounter [id number] 11/05 [facility] ROUT FOOT CARE PER VISIT [id number] Diagnos is: ICD-10- CM L60.3 Nail dystrop hy
WARD GEORGES ISTINE A 11/09 [facility] Outpatient Encounter [id number] 12/01 [facility] Outpatient Encounter [id number] 12/04 [facility] Outpatient Encounter [id number] GREGOR KRISHNAMURTHY 12/15 [facility] Outpatient Encounter [id number] TERRELL JIMÉNEZ 12/15 [facility] Outpatient Encounter [id number] 12/16 [facility] Outpatient Encounter [id number] 12/23 [facility] OFFICE O/P EST MOD 30-39 MIN [id number] Diagnos is: ICD-10- CM F33.8 Other recurre nt depress katherin disorde rs
HALEY,PET ER B 12/24 [facility] Outpatient Encounter [id number] 12/28 [place] [facility] [place] [facility] Outpatient Encounter [id number] Diagnos is: ICD-10- CM I10 Essenti al (primar y) hyperte nsion<b r/> Rajesh MORGAN H 12/29 [place] [facility] [place] [facility] OFFICE O/P EST MOD 30-39 MIN [id number] Diagnos is: ICD-10- CM H57.813 Brow ptosis, bilater al
[facility]Y,[facility] 01/06 [place] [facility] [place] [facility] Outpatient Encounter [id number] [facility] 01/06 [place] [facility] [place] [facility] Outpatient Encounter [id number] [facility] 01/06 [place] [facility] [place] [facility] Outpatient Encounter [id number] [facility] 01/06 [place] [facility] [place] [facility] Outpatient Encounter [id number] [facility] 01/06 [place] [facility] [place] [facility] Outpatient Encounter [id number] 01/28 [place] [facility] [place] [facility] Outpatient Encounter [id number] 02/03 [place] [facility] [place] [facility] Outpatient Encounter [id number] SA ALYSSA REICH SCOTT 02/03 [place] [facility] [place] [facility] Outpatient Encounter [id number] 02/04 [place] [facility] [place] [facility] OFFICE O/P EST MOD 30-39 MIN [id number] Diagnos is: ICD-10- CM L03.115 Celluli tis of right lower limb
Layla RICH 02/04 [facility] Outpatient Encounter [id number] TERRELL JIMÉNEZ Serina [place] 02/05 [facility] EMERGENCY DEPT VISIT LOW MDM [id number] Diagnos is: ICD-10- CM L03.115 Celluli tis of right lower limb
BRENT KIRAN 02/09 [facility] OFFICE O/P EST LOW 20-29 MIN [id number] Diagnos is: ICD-10- CM J44.9 Chronic obstruc tive pulmona ry disease , unspeci fied
Fabiana PRATT 02/19 [facility] Outpatient Encounter [id number] Diagnos is: ICD-10- CM J44.9 Chronic obstruc tive pulmona ry disease , unspeci fied
GINNY MCGOVERNICA L 02/22 [place] [facility] OFFICE O/P EST MOD 30-39 MIN [id number] Diagnos is: ICD-10- CM I27.20 Pulmona ry hyperte nsion, unspeci fied
[facility]01 [place] [facility] OFFICE O/P EST SF 10-19 MIN [id number] Diagnos is: ICD-10- CM B35.1 Tinea unguium
RILEY CHAVARRIA AM R 03/01 [facility] Outpatient Encounter [id number] 03/03 [place] [facility] [place] [facility] Outpatient Encounter [id number] 03/26 [place] [facility] Outpatient Encounter [id number] 04/08 [facility] HEMOGLOBIN [id number] Diagnos is: ICD-10- CM J44.9 Chronic obstruc tive pulmona ry disease , unspeci fied
LLOYD ROSENTHAL E 04/08 [place] [facility] OFFICE O/P NEW MOD 45-59 MIN [id number] Diagnos is: ICD-10- CM J44.9 Chronic obstruc tive pulmona ry disease , unspeci fied
ANTONIO AREVALO 04/08 [facility] HC PRO PHONE CALL 5-10 MIN [phone] Diagnos is: ICD-10- CM J44.9 Chronic obstruc tive pulmona ry disease , unspeci fied
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
JUAN SALDIVAR RY L 05/18 [facility] OFFICE O/P EST MOD 30-39 MIN [id number] Diagnos is: ICD-10- CM F43.12 Post-tr aumatic stress disorde r, chronic
HALEY,PET ER B 06/02 [facility] Outpatient Encounter [id number] 06/04 [facility] [place] [facility] Outpatient Encounter [id number] 06/11 [facility] [place] [facility] Outpatient Encounter [id number] 06/17 [facility] [place] [facility] Outpatient Encounter [id number] 06/19 [place] [facility] OFFICE O/P NEW MOD 45-59 MIN [id number] Diagnos is: ICD-10- CM G47.33 Obstruc tive sleep apnea (adult) (pediat jeffery)
JORGE SORIANOLayla AHANadia 06/21 [facility] Outpatient Encounter [id number] 06/21 [facility] ROUT FOOT CARE PER VISIT [id number] Diagnos is: ICD-10- CM L60.3 Nail dystrop hy
WARD GEORGES ISTINE A 06/28 [facility] OFFICE O/P EST HI 40-54 MIN [id number] Diagnos is: ICD-10- CM J44.9 Chronic obstruc tive pulmona ry disease , unspeci fied
ANTONIO AREVALO 07/01 [facility] Outpatient Encounter [id number] 07/05 [facility] POLYSOM 6/> YRS 4/> AMIRAH [id number] [id number] Diagnos is: ICD-10- CM G47.33 Obstruc tive sleep apnea (adult) (pediat jeffery)
Rajesh VILLEGAS 07/27 [facility] Outpatient Encounter [id number] 08/09 [facility] Outpatient Encounter [id number] 08/26 [facility] Outpatient Encounter [id number] 09/01 [facility] OFFICE O/P EST MOD 30 MIN [id number] Diagnos is: ICD-10- CM F43.12 Post-tr aumatic stress disorde r, chronic
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
Fabiana PRATT HRISTOPHER 10/11 [facility] TYMPANOMET RY & REFLEX THRESH [id number] [id number] Diagnos is: ICD-10- CM Z01.118 Encntr for exam of ears and hearing w oth abnorma l finding s
CANDIDO SOUSA IDGET M 10/15 [facility] Outpatient Encounter [id number] 10/20 [facility] Outpatient Encounter [id number] 10/21 [facility] OFFICE O/P NEW HI 60 MIN [id number] Diagnos is: ICD-10- CM G25.0 Essenti al tremor< br/> BRODIE EUBANKS E 11/04 [facility] CONFORMITY EVALUATION [id number] [id number] Diagnos is: ICD-10- CM H90.3 Sensori neural hearing loss, bilater al
DARNELL CASPER M 11/14 [place] [facility] [place] [facility] OFFICE O/P EST HI 40 MIN [id number] Diagnos is: ICD-10- CM G47.33 Obstruc tive sleep apnea (adult) (pediat jeffery)
Jovi EDWARDS 12/19 [place] [facility] [place] [facility] OFFICE O/P EST HI 40 MIN [id number] Diagnos is: ICD-10- CM G51.31 Clonic hemifac ial spasm, right<b r/> BRODIE EUBANKS E 01/02 [place] [facility] [place] [facility] Outpatient Encounter [id number] 01/02 [place] [facility] [place] [facility] Outpatient Encounter [id number] 01/04 [facility] OFF/OP EST MAY X REQ PHY/QHP [id number] Diagnos is: ICD-10- CM Z86.010 Persona l history of colonic polyps< br/> VERITO CROCKER H 01/04 [facility] [place] [facility] OFFICE O/P EST HI 40 MIN [id number] Diagnos is: ICD-10- CM J44.9 Chronic obstruc tive pulmona ry disease , unspeci fied
ANTONIO AREVALO 01/05 [place] [facility] [place] [facility] Outpatient Encounter [id number] 01/09 [place] [facility] [place] [facility] Outpatient Encounter [id number] 01/10 [place] [facility] [place] [facility] Outpatient Encounter [id number] 01/12 [place] [facility] [place] [facility] OFFICE O/P EST MOD 30 MIN [id number] Diagnos is: ICD-10- CM F33.8 Other recurre nt depress katherin disorde rs
HALEY,PET ER B 01/13 [facility] Outpatient Encounter [id number] 01/13 [facility] OT EVAL LOW COMPLEX 30 MIN [id number] [id number] Diagnos is: ICD-10- CM G25.0 Essenti al tremor< br/> BENGABDIRAHMANTYLER TLIN A 01/17 [facility] Outpatient Encounter [id number] 02/23 [facility] Outpatient Encounter [id number] 02/24 [facility] Social History Combined list of available smoking, tobacco, and other social history from Department of Defense and Veterans Affairs facilities. Social History Type Response Date Comment Sourc e Tobacco smoking status [facility] FORMER USER 10/11/2023 [facility] History of tobacco use [facility] 1 5 YRS OR MORE 10/11/2023 [facility] History of tobacco use [place]-TO[place] FORMER USER 08/17/2022 [facility] History of tobacco use [place]-TO[place]AC[place] FORMER USER 10/27/2021 [facility] History of tobacco use [place]-TOBACCO FORMER USER 09/19/2020 [facility] History of tobacco use VA-TOBACCO FORMER USER 12/20/2018 [facility] History of tobacco use FORMER TOBACCO US ER 7Y OR GREATER 12/07/2017 [facility] History of tobacco use FORMER TOBACCO US ER 7Y OR GREATER 04/21/2017 [facility] History of tobacco use FORMER TOBACCO US ER 7Y OR GREATER 04/28/2016 [facility] History of tobacco use FORMER TOBACCO US ER 7Y OR GREATER 01/22/2015 [facility] History of tobacco use FORMER TOBACCO US ER 7Y OR GREATER 01/25/2014 [facility] History of tobacco use FORMER TOBACCO US ER 7Y OR GREATER 12/30/2011 [facility] History of tobacco use FORMER TOBACCO US E >1Y <7Y 01/21/2011 [facility] History of tobacco use FORMER TOBACCO US E >1Y <7Y 11/27/2009 [facility] History of tobacco use FORMER TOBACCO US E >1Y <7Y 12/27/2008 [facility] History of tobacco use FORMER TOBACCO US E >1Y <7Y 01/03/2008 [facility] History of tobacco use FORMER TOBACCO US E >1Y <7Y 01/11/2007 [facility] Plan of Care List of future care activities from [facility] facilities. Additional future care activities may be listed in the Assessment and Plan section. Date/Time Care Activity Care Activity Detail Facili ty 04/10/2024 AMBULATORY - REHAB MEDICINE AMBULATORY - REHAB MEDICINE [facility] 05/31/2024 AMBULATORY - PSYCHIATRY AMBULATORY - PSYC HIATRY [facility] 07/20/2024 AMBULATORY - MEDICINE AMBULATORY - MEDICI NE [facility] 07/20/2024 AMBULATORY - MEDICINE AMBULATORY - MEDICI NE [facility] 04/08/2024 Laboratory - Lens Edge Grinder Machine ry Order COMPREHENSIVE METABOLIC PANEL+MG PLASMA SP ONCE [facility] Advance Directives List of completed, amended, or rescinded Advance Directives on record at [facility] facilities. An actual copy of the Directive is not included. Date Advance Directive Provider Source 12/04/2009 CLINICAL WARNING KAMARI CUM[facility]
--- OUTSIDE RECORDS SUMMARY | 2024-02-26 09:13 | XMS_ITS | Encounter Summary ---
Author Name [facility] Organization [facility] Address [address] [place] [address] Care Team Providers Care Table Cut Off Saw Operator Name Role Phone EDUARDO PRATT Primary Care [...] PART A Sep 30, 2010 PART A [phone] Isaac IGLESIAS PATIENT Selected Encounter This section includes the information on record at [place] for the Encounter. Date/Time Encounter Type Encounter Description Reason Provider Source May 18, 2023 08:20 AM OFFICE O/P EST MOD 30-39 MIN OPHTHALMOLOGY ICD-10-CM Z96.1 Presence of intraocular lens CK SALDIVAR Encounter Template Text not used by [facility] Assessments - Encounter Diagnoses This section includes the primary and secondary diagnoses documented for the Encounter. Date/Time Primary/Secondary Diagnosis Diagnosis Name Provider Source May 18, 2023 08:55 AM PRIMARY Presence of intraocular lens CK SALDIVAR [facility] May 18, 2023 08:55 AM SECONDARY Puckering of macula, left eye KC SALDIVAR [facility] Plan of Treatment: Future Appointments (+ 6 months) and Future Tests (+/- 45 days) The Plan of Treatment section includes future care activities for the [facility] This section includes future appointments and future orders which are active, pending or scheduled. Future Appointments This section includes appointments that were scheduled to occur 6 months from the date of the Encounter, up to a maximum of 20 appointments. The data comes from all [place] treatment facilities. Appointment Date/Time Appointment Type Appointme nt Facility Name Jun 02, 2023 08:30 AM AMBULATORY - PSYCHIATRY [facility] Jun 08, 2023 08:30 AM [facility] NONE [facility] Jun 11, 2023 09:00 AM [facility] Jun 21, 2023 09:00 AM [facility] Jun 22, 2023 08:15 AM [facility] NONE [facility] Jun 28, 2023 08:30 AM [facility] [place] [facility] Jul 01, 2023 12:30 PM [facility] Jul 27, 2023 08:30 PM AMBULATORY - MEDICINE [facility] Sep 03, 2023 09:00 AM AMBULATORY [place] [facility] Sep 07, 2023 07:30 AM [facility]ORY [facility] [place] [facility] Sep 09, 2023 11:00 AM AM[facility]ORY - [place] [facility] Oct 11, 2023 07:00 AM [place] [place] [facility] Oct 11, 2023 08:00 AM [place] [facility] Oct 15, 2023 07:45 AM [facility] Nov 05, 2023 08:30 AM [facility] Nov 05, 2023 10:30 AM [facility] [place]ONE [place] [facility] Nov 08, 2023 05:00 PM [facility] Nov 15, 2023 07:45 AM AMBULATORY - SURGERY [facility] Active, Pending, and Scheduled Orders This section includes a listing of several types of active, pending, and scheduled orders, including clinic medications orders, diagnostic test orders, procedure orders and consult orders; where the start date of the order is 45 days before the date of the Encounter or 45 days after the date of theEncounter. The data comes from all [place] treatment facilities. Test Date/Time Test Type Test Details Facility Name Apr 09, 2023 09:25 AM Laboratory - Microbiology Order CULTURE & SUSCEPTIBILITY BLOOD SP ONCE [facility] Social History: Smoking Status (Most current) and Tobacco Use (All prior to encounter date) This section includes the most current, and the historical, smoking and tobacco- related health factors from the [place] facility where the Encounter took place. Current Smoking Status This section includes the most current smoking, or tobacco-related health factor, from the [place] facility where the Encounter took place. Date/Time Current Smoking Status Comment Facil ity Aug 17, 2022 09:15 AM VA-TOBACCO FORMER USER [facility] Tobacco Use History This section includes a history of the smoking, or tobacco-related health factors, that were collected on or before the date of the Encounter. The data comes from the [place] facility where the Encounter took place. Date/Time Smoking Status/Tobacco Use Comment F acility Aug 17, 2022 09:15 AM VA-TOBACCO QUIT 15 YRS OR MORE [facility] Oct 27, 2021 09:00 AM VA-TOBACCO FORMER USER [facility] Oct 27, 2021 09:00 AM VA-TOBACCO QUIT 15 YRS OR MORE [facility] Sep 19, 2020 09:00 AM VA-TOBACCO FORMER USER [facility] Sep 19, 2020 09:00 AM VA-TOBACCO QUIT 15 YRS OR MORE [facility] Dec 20, 2018 10:09 AM VA-TOBACCO FORMER USER [facility] Dec 20, 2018 10:09 AM VA-TOBACCO QUIT 15 YRS OR MORE [facility] Dec 07, 2017 09:12 AM FORMER TOBACCO USER 7Y OR GREATE R [facility] Apr 21, 2017 08:35 AM FORMER TOBACCO USER 7Y OR GREATE R [facility] Apr 28, 2016 08:20 AM FORMER TOBACCO USER 7Y OR GREATE R [facility] January 22, 2015 10:07 AM FORMER TOBACCO USER 7Y OR GREATE R [facility] January 25, 2014 10:11 AM FORMER TOBACCO USER 7Y OR GREATE R [facility] December 30, 2011 08:00 AM FORMER TOBACCO USER 7Y OR GREATE R [facility] January 21, 2011 01:16 PM FORMER TOBACCO USE >1Y <7Y [facility] Nov 27, 2009 08:09 AM FORMER TOBACCO USE >1Y <7Y [facility] Dec 27, 2008 12:32 AM FORMER TOBACCO USE >1Y <7Y [facility] January 03, 2008 12:52 PM FORMER TOBACCO USE >1Y <7Y [facility] January 11, 2007 10:43 AM FORMER TOBACCO USE >1Y <7Y [facility] Advance Directives: All historical and current Section Date Range: From patient's date of to the date document was created. This section includes ALL of a patient's completed or amended [place] Advance and Rescinded Directives. The entries below indicate that a directive exists for the patient, but an actual copy is not included with this document. The data comes from all [facility]. Date Advance Directives Provider Source Dec 04, 2009 CLINICAL WARNING KAMARI C[facility] Pathology Reports: +/- 30 days of the encounter Pathology Reports For cases when an order for pathology services may have been completed prior to the date of the Encounter, the report list includes the Pathology Reports that were completed up to 30 days before dateof the Encounter. For cases when an order for pathology services may have been completed after the date of the Encounter, the report list also includes the Pathology Reports that were completed up to30 days after date of the Encounter. The data comes from all [facility] facilities. Date/Time Pathology Report Provider Source Apr 19, 2023 12:00 AM LR MICROBIOLOGY RE PORT: Accession [UID]: [id number] [[id number]] Received: Apr 20, 2023@11:54 Collection sample: SPUTUM Collection date: Apr 19, 2023 00:00 Provider: INA MCKENZIE Comment on specimen: RECEIVED IN STERILE CUP [facility] Apr 18, 2023 12:00 AM LR MICROBIOLOGY RE PORT: Accession [UID]: [id number] [[id number]] Received: Apr 20, 2023@11:54 Collection sample: SPUTUM Collection date: Apr 18, 2023 00:00 Provider: INA MCKENZIE Comment on specimen: RECEIVED IN STERILE CUP [facility] Encounter Notes: All associated encounter notes This section contains the clinical notes associated to the Encounter. Date/Time Encounter Note(s) Provider Source Jun 02, 2023 01:09 PM ADDENDUM: LOCAL TITLE: Addendum STANDARD TITLE: ADDENDUM DATE OF NOTE: JUN 02, 2023@13:09:13 ENTRY DATE: JUN 02, 2023@13:09:15 AUTHOR: MARCELO ZENDEJAS COSIGNER: URGENCY: STATUS: COMPLETED Lignum had cataract surgery in 2010 OD, now with subluxed IOL OD and epiretinal membrane OS. He would like to be referred to [facility] for surgery due to wait time. Should be scheduled with a retina specialist. /es/ MARCELO ZENDEJAS MD OPHTHALMIC SURGEON Signed: 06/02/2023 13:12 Receipt Acknowledged By: 06/02/2023 14:00 /es/ ANGELO KAPADIA APRN, PERFORMANCE SPECIALIST FAMILY NURSE PRACTITIONER --- Original Document --- 05/18/23 OPHTHALMOLOGY CLINIC NOTE: HPI: Here for IOL follow up and Glaucoma and ERM I have reviewed the bomb technician's note and agree. A&Ox3 SLE - bilaterally: L/L - regular contour C/S - w/q K - cl A/C - D/q I - r/r L - The OD IOL has fallen far enough to require additional surgery OS IOL is mildly subluxed inferiorly DFE - bilaterally: Vit - cl ON: pink/healthy c/d: OD - 0.75 OS - 0.85 M/V/P - flat. regular distrib. flat ERM OS as before 360 Ok I/P: 1. Glaucoma well controlled on Brim OU BID RNFL all green OU 2. ERM stable OS 3. OD IOL subluxed enough that only aphakic refraction works will schedule for evaluation with Dr Santiago who has seen him before for this and the ERM OS. She saw him Aug 19 Pt noticed the big change in vision about a month ago. He will need corneal thickness measurements and/or endo counts 4. SP oculoplastics with good results rtc Dr Santiago sooner with changes /es/ CK SALDIVAR MD OPHTHALMOLOGY STAFF SURGEON Signed: 05/18/2023 09:11 MARCELO ZENDEJAS [facility] May 18, 2023 08:55 AM OPHTHALMOLOGY ATTE NDING NOTE: LOCAL TITLE: OPHTHALMOLOGY CLINIC NOTE STANDARD TITLE: OPHTHALMOLOGY ATTENDING NOTE DATE OF NOTE: MAY 18, 2023@08:55 ENTRY DATE: MAY 18, 2023@08:55:44 AUTHOR: CK SALDIVAR EXP COSIGNER: URGENCY: STATUS: COMPLETED OPHTHALMOLOGY CLINIC NOTE Has ADDENDA HPI: Here for IOL follow up and Glaucoma and ERM I have reviewed the bomb technician's note and agree. A&Ox3 SLE - bilaterally: L/L - regular contour C/S - w/q K - cl A/C - D/q I - r/r L - The OD IOL has fallen far enough to require additional surgery OS IOL is mildly subluxed inferiorly DFE - bilaterally: Vit - cl ON: pink/healthy c/d: OD - 0.75 OS - 0.85 M/V/P - flat. regular distrib. flat ERM OS as before 360 Ok I/P: 1. Glaucoma well controlled on Brim OU BID RNFL all green OU 2. ERM stable OS 3. OD IOL subluxed enough that only aphakic refraction works will schedule for evaluation with Dr Santiago who has seen him before for this and the ERM OS. She saw him Aug 19 Pt noticed the big change in vision about a month ago. He will need corneal thickness measurements and/or endo counts 4. SP oculoplastics with good results rtc Dr Santiago sooner with changes /johana/ CK SALDIVAR MD OPHTHALMOLOGY STAFF SURGEON Signed: 05/18/2023 09:11 06/02/2023 ADDENDUM STATUS: COMPLETED Lignum had cataract surgery in 2010 OD, now with subluxed IOL OD and epiretinal membrane OS. He would like to be referred to [facility] for surgery due to wait time. Should be scheduled with a retina specialist. /johana/ MARCELO ZENDEJAS MD OPHTHALMIC SURGEON Signed: 06/02/2023 13:12 Receipt Acknowledged By: * AWAITING SIGNATURE * ANGELO KAPADIA JERRY L [facility] May 18, 2023 08:32 AM OPHTHALMOLOGY TECH NICIAN NOTE: LOCAL TITLE: FINANCIAL PLANNING ANALYST NOTE STANDARD TITLE: FINANCIAL PLANNING ANALYST NOTE DATE OF NOTE: MAY 18, 2023@08:32 ENTRY DATE: MAY 18, 2023@08:32:20 AUTHOR: OSCAR KEYES EXP COSIGNER: URGENCY: STATUS: COMPLETED mac and RNFL completed /es/ CARLOS KEYES OPHTHALMOLOGY TECH Signed: 05/18/2023 08:32 OSCAR KEYES [facility] May 18, 2023 07:58 AM OPHTHALMOLOGY TECH NICIAN NOTE: LOCAL TITLE: FINANCIAL PLANNING ANALYST NOTE STANDARD TITLE: FINANCIAL PLANNING ANALYST NOTE DATE OF NOTE: MAY 18, 2023@07:58 ENTRY DATE: MAY 18, 2023@07:59 AUTHOR: BILLY BRAUN EXP COSIGNER: URGENCY: STATUS: COMPLETED Eye Start Exam Patient: ROSS IGLESIAS Sex: MALE SSN: [id number] Birthdate: [birth year] Chief complaint: Annual eye exam. Patient states my right IOL has fallen down and my vision is much worse since last visit. Left eye is unchanged. Patient feels like he has a headache above RIGHT eye. Uses drops as directed. History of Present Illness: Location: Intensity: Duration: Active problems - Computerized Problem List is the source for the followin. Osteoarthritis (SNOMED CT 965021680) 2. Depression (SNOMED CT 16877544) 3. Posttraumatic stress disorder (SNOMED CT 39621755) 4. 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 Malignant tumor of oropharynx - 1977 6. Coronary artery disease - S/P stents to RCA and Cx in 2003 (ANW) - Cath (2011) No significant lesions. - Rest MPS (2016) No ischemia. EF 58%. - Echo (2016) EF 60-65%. Normal chambers and valves. - 2019 Stress Thalium: 1. No ischemia demonstrated. 7. Hypertension 8. Hyperlipidemia 9. COPD - Chronic obstructive pulmonary disease - FEV1/FVC (2009) 2.00/3.13. FEV1 70% pred. FEV1% 64. - Moderatre COPD 10. History of malignant neoplasm of skin excluding melanoma - H/O recurrent non-melanoma skin cancers 11. History of venous thrombosis - H/O provoked LE DVT in 1977. - Recurrent unprovoked DVT in 1986. - H/O unprovoked right leg DVT in 2019 12. Chronic rhinitis 13. Syncope 14. Long-term current use of anticoagulant 15. History of adenomatous polyp of colon 16. Peripheral neuropathy 17. Benign prostatic hyperplasia with outflow obstruction 18. Hypoxic - Chronic 78 - 85% RA 19. Pulmonary hypertension - Mild - 11/19 Echo 20. Ex-tobacco user - Quit 2003, 15 pack year hx Surgeries: JUL 06, 2022 Proc: Bilateral Direct Eyebrow Pexy, Upper Blepharoplasty, Levator Plication, lateral Canthopexy OCT 30, 2015 Proc: ce/iol left eye Follow Up Exam Eye Medications Brimonidine BID BOTH eyes 445am AT's daily Allergies: PENICILLIN (May 15, 1994) SIMVASTATIN (Apr 01, 2006) LOBSTER (Jul 12, 2007) SCALLOPS (Jul 12, 2007) LISINOPRIL (Apr 03, 2008) METOPROLOL (Apr 03, 2008) FISH (Dec 04, 2009) CONTRAST MEDIA (Jul 06, 2022) No new Allergies. Last refraction: Vision: OD:SC(without glasses) OD: 20/40-2 Pinhole: 20/No Improvement Near: 20/ Vision: OS:SC(without glasses) 0S: 20/25-1 Pinhole: 20/ Near: 20/ Refraction: Manifest: YES Automated: NO OD:+10.25 +2.66B466 20/30-2 OS:-1.50 +1.84J017 20/20-2 Balance: Add: +2.50 Near vision: OD : OS 20: OU Comment: Confrontational Bowers: Full to finger counting: Right: Yes Left: Yes Extra Ocular Movement: Normal Pupils: Right: Round Left: Round Size: Right: 2 Left: 2 React to light: Right: Yes Left: Yes Afferent pupil defect: Right:No Grade: Left: No Grade: Note: Intra-ocular pressure (IOP): OD: 12 OS: 12 Applanation Dilation: mydriacyl 1% and neosynephrine OU Apr@08:20 /johana/ BILLY BRAUN HEALTH GARMENT FOLDER Signed: 05/18/2023 08:21 BILLY BRAUN [facility]
--- OUTSIDE RECORDS SUMMARY | 2024-02-26 09:13 | XMS_ITS | Encounter Summary ---
Author Name [facility] [facility] [place] [facility] [place] [facility] [place] Address [address] [place] [address] Care Team Providers Care Operations Technician Name Role Phone EDUARDO PRATT Primary Care [...] PART A Sep 30, 2010 PART A [id number] Isaac IGLESIAS PATIENT Selected Encounter This section includes the information on record at [place] for the Encounter. Date/Time Encounter Type Encounter Description Reason Provider Source Apr 08, 2023 09:30 AM OFFICE O/P NEW MOD 45-59 MIN PULMONARY/CHEST ICD-10-CM J44.9 Chronic obstructive pulmonary disease, unspecified EDSON ISBELL [facility] Encounter Template Text not used by [place] Assessments - Encounter Diagnoses This section includes the primary and secondary diagnoses documented for the Encounter. Date/Time Primary/Secondary Diagnosis Diagnosis Name Provider Source Apr 08, 2023 05:45 PM PRIMARY Chronic obstructive pulmonary disease, unspecified EDSON ISBELL [facility] Apr 08, 2023 05:45 PM SECONDARY Other nonspecific abnormal finding of lung field EDSON ISBELL [facility] Apr 08, 2023 05:45 PM SECONDARY Pulmonary hypertension, unspecified EDSON IBSELL [facility] Plan of Treatment: Future Appointments (+ 6 months) and Future Tests (+/- 45 days) The Plan of Treatment section includes future care activities for the patient from all [place] [facility]. This section includes future appointments and future orders which are active, pending or scheduled. Future Appointments This section includes appointments that were scheduled to occur 6 months from the date of the Encounter, up to a maximum of 20 appointments. The data comes from all [facility]. Appointment Date/Time Appointment Type Appointme nt Facility Name May 18, 2023 08:20 AM AMBULATORY - SURGERY [facility] Jun 02, 2023 08:30 AM AMBULATORY - PSYCHIATRY [facility] Jun 08, 2023 08:30 AM AMBULATORY - NONE [facility] Jun 11, 2023 09:00 AM AMBULATORY - NONE [facility] Jun 21, 2023 09:00 AM AMBULATORY - MEDICINE [facility] Jun 22, 2023 08:15 AM AMBULATORY - NONE [facility] Jun 28, 2023 08:30 AM AMBULATORY - SURGERY [facility] Jul 01, 2023 12:30 PM AMBULATORY - MEDICINE [facility] Jul 27, 2023 08:30 PM AMBULATORY - MEDICINE [facility] Sep 03, 2023 09:00 AM AMBULATORY - PSYCHIATRY [facility] Sep 07, 2023 07:30 AM AMBULATORY - SURGERY [facility] Sep 09, 2023 11:00 AM AMBULATORY - SURGERY [facility] Active, Pending, and Scheduled Orders This section includes a listing of several types of active, pending, and scheduled orders, including clinic medications orders, diagnostic test orders, procedure orders and consult orders; where the start date of the order is 45 days before the date of the Encounter or 45 days after the date of theEncounter. The data comes from all [facility]. Test Date/Time Test Type Test Details Facility Name Apr 09, 2023 09:25 AM Laboratory - Microbiology Order CULTURE & SUSCEPTIBILITY BLOOD SP ONCE [facility] Lab Results: +/- 30 days of the encounter This section includes the Chemistry and Hematology Lab Results on record with [place] for the patient. Radiology Reports and Pathology Reports are provided separately, in subsequent sections. Lab Results This section contains the Chemistry/Hematology Results that were resulted 30 days before or 30 daysafter the date of the Encounter. Date/Time Source Result Type Result - Unit Interpretation Reference Range Comment Apr 08, 2023 10:26 AM [facility] ISMAEL WITH REFLEX TO MORIAH/DNA Specimen Type: SERUM No comment entered. Ordering Provider: ANTONIETTA CASTILLO Report Released Date/Time: Apr 08, 2023 10:05 AM Reporting Lab: [facility] [id number] Performing Lab: [facility] [id number] .ANTINUCLEAR ABELARDO NEGATIVE Negative Apr 08, 2023 10:26 AM [facility] ANCA Specimen Type: SERUM No comment entered. Ordering Provider: ANTONIETTA CASTILLO Report Released Date/Time: Apr 08, 2023 10:05 AM Reporting Lab: [facility] [id number] Performing Lab: [facility] [address] .CYTOPLASMIC ANCA NEGATIVE See_Commen t .PERINUCLEAR ANCA NEGATIVE See_Commen t Apr 08, 2023 10:26 AM [facility] ELP/IMMFIX,SERUM PANEL Specimen Type: SERUM No comment entered. Ordering Provider: ANTONIETTA CASTILLO Report Released Date/Time: Apr 08, 2023 10:05 AM Reporting Lab: [facility] [address] Performing Lab: [facility] [address] PROTEIN,TOTAL 8.4 g/dL H 6.0-8.3 .ALBUMIN FRACTION 4.20 g/dL 3.66-4.78 .ALPHA 1 FRACTION 0.39 g/dL H 0.14-0.38 .ALPHA 2 FRACTION 0.96 g/dL H 0.50-0.90 .BETA 1 FRACTION 0.55 g/dL 0.33-0.55 .BETA 2 FRACTION 0.49 g/dL 0.20-0.52 .GAMMA FRACTION 1.81 g/dL H 0.58-1.72 .TOTAL PROTEIN 8.4 g/dL H 6.0-8.3 .INTERPRETATION NO MONOCLONALS DETECTED Apr 08, 2023 10:26 AM [facility] C-REACTIVE PROTEIN Specimen Type: PLASMA No comment entered. Ordering Provider: ANTONIETTA CASTILLO Report Released Date/Time: Apr 08, 2023 10:05 AM Reporting Lab: [facility] [address] Performing Lab: [facility] [address] C-REACTIVE PROTEIN 11.13 mg/L H <5.00 Apr 08, 2023 10:26 AM [facility] [id number]-[id number] Specimen Type: SERUM No comment entered. Ordering Provider: ANTONIETTA CASTILLO Report Released Date/Time: Apr 08, 2023 10:05 AM Reporting Lab: [facility] [address] Performing Lab: [facility] [address] BICCP-2-NBAMPHI PSIN 184 mg/dL 90-200 Apr 08, 2023 10:26 AM [facility] ANTI-CCP Specimen Type: PLASMA No comment entered. Ordering Provider: ANTONIETTA CASTILLO Report Released Date/Time: Apr 08, 2023 10:05 AM Reporting Lab: [facility] [address] Performing Lab: [facility] [address] ANTI-CCP <0.5 <4.9 Apr 08, 2023 10:26 AM [facility] SED RATE Specimen Type: BLOOD No comment entered. Ordering Provider: ANTONIETTA CASTILLO Report Released Date/Time: Apr 08, 2023 10:05 AM Reporting Lab: [facility] [address] Performing Lab: [facility] [address] SED RATE 18 mm/h H 5-15 Apr 08, 2023 10:26 AM [facility] CK,TOTAL Specimen Type: PLASMA No comment entered. Ordering Provider: ANTONIETTA CASTILLO Report Released Date/Time: Apr 08, 2023 10:05 AM Reporting Lab: [facility] [address] Performing Lab: [facility] [address] CK,TOTAL 91 U/L 39-208 Apr 08, 2023 10:26 AM [facility] RHEUMATOID FACTOR Specimen Type: SERUM No comment entered. Ordering Provider: ANTONIETTA CASTILLO Report Released Date/Time: Apr 08, 2023 10:05 AM Reporting Lab: [facility] [address] Performing Lab: [facility] [address] RHEUMATOID FACTOR <13 [IU]/mL <29 Apr 08, 2023 10:26 AM [facility] COMPREHENSIVE METABOLIC PANEL+MG Specimen Type: PLASMA No comment entered. Ordering Provider: ANTONIETTA CASTILLO Report Released Date/Time: Apr 08, 2023 10:05 AM Reporting Lab: [facility] [address] Performing Lab: [facility] [address] CREATININE 1.3 mg/dL H 0.7-1.2 UREA NITROGEN 18 mg/dL 8-26 GLUCOSE 90 mg/dL 70-100 SODIUM 137 mmol/L 136-145 POTASSIUM 3.9 mmol/L 3.5-5.1 CHLORIDE 97 mmol/L L 98-107 CO2 30 mmol/L H 22-29 CALCIUM 9.9 mg/dL 8.4-10.2 PROTEIN,TOTAL 8.4 g/dL H 6.0-8.3 ALBUMIN 4.4 g/dL 3.5-5.2 BILIRUBIN, TOTAL 1.0 mg/dL 0.2-1.2 MAGNESIUM 2.2 mg/dL 1.6-2.6 ANION GAP 10 mmol/L 5-15 ALKALINE PHOSPHATASE 86 U/L 40-150 ALT/SGPT 15 U/L <55 AST/SGOT 24 U/L <34 .CREAT EGFR(CKD-EPI) 57 L >60 Apr 08, 2023 10:26 AM [facility] CBC & DIFF Specimen Type: BLOOD Comment: Automated Differential Performed Ordering Provider: ANTONIETTA CASTILLO Report Released Date/Time: Apr 09, 2023 09:09 AM Reporting Lab: [facility] [address] Performing Lab: [facility] [address] WBC 5.19 10*3/uL 4.0-11.0 RBC 5.51 10*6/uL 4.6-6.2 HGB 15.6 g/dL 13.5-17.9 HCT 51.2 41-54 MCV 92.9 fL 80-100 MCH 28.3 pg 27-33 MCHC 30.5 g/dL L 32.0-37.5 PLT 190 10*3/uL 150-400 MPV 11.8 fL H 7.4-10.4 NEUT 68.3 40.0-80.0 LYMPHS 15.8 15.0-45.0 MONO 11.4 2.0-12.0 EOSINO 3.3 0.0-6.0 BASO 1.0 0.0-2.0 RDW 17.4 H 11.5-14.5 ABS LYMPH 0.82 10*3/uL L 1.0-4.0 ABS MONO 0.59 10*3/uL 0.1-1.0 ABS NEUT 3.55 10*3/uL 2.0-7.7 ABS EOS 0.17 10*3/uL 0-0.5 ABS BASO 0.05 10*3/uL 0-0.2 IG(META,MYELO,P RO) 0.2 ABS IMMATURE GRAN 0.01 10*3/uL 0-0.1 Vital Signs: All taken on the encounter date This section contains inpatient and outpatient Vital Signs collected on the date of the Encounter. Date/Time Temperature Pulse Blood Pressure Respiratory Rate SP02 Pain Height Weight Body Mass Index Source Apr 08, 2023 08:56 AM 97 F 63 /min 136/70 mm[Hg] 18 /min 90 % 165 lb 27 [place] [facility] Social History: Smoking Status (Most current) and Tobacco Use (All prior to encounter date) This section includes the most current, and the historical, smoking and tobacco- related health factors from the [place] facility where the Encounter took place. Current Smoking Status This section includes the most current smoking, or tobacco-related health factor, from the [place] facility where the Encounter took place. Date/Time Current Smoking Status Comment Facil ity Aug 17, 2022 09:15 AM VA-TOBACCO FORMER USER [facility] Tobacco Use History This section includes a history of the smoking, or tobacco-related health factors, that were collected on or before the date of the Encounter. The data comes from the [place] facility where the Encounter took place. Date/Time Smoking Status/Tobacco Use Comment F acility Aug 17, 2022 09:15 AM VA-TOBACCO QUIT 15 YRS OR MORE [facility] Oct 27, 2021 09:00 AM VA-TOBACCO FORMER USER [facility] Oct 27, 2021 09:00 AM VA-TOBACCO QUIT 15 YRS OR MORE [facility] Sep 19, 2020 09:00 AM VA-TOBACCO FORMER USER [facility] Sep 19, 2020 09:00 AM VA-TOBACCO QUIT 15 YRS OR MORE [facility] Dec 20, 2018 10:09 AM VA-TOBACCO FORMER USER [facility] Dec 20, 2018 10:09 AM VA-TOBACCO QUIT 15 YRS OR MORE [facility] Dec 07, 2017 09:12 AM FORMER TOBACCO USER 7Y OR GREATE R [facility] Apr 21, 2017 08:35 AM FORMER TOBACCO USER 7Y OR GREATE R [facility] Apr 28, 2016 08:20 AM FORMER TOBACCO USER 7Y OR GREATE R [facility] January 22, 2015 10:07 AM FORMER TOBACCO USER 7Y OR GREATE R [facility] January 25, 2014 10:11 AM FORMER TOBACCO USER 7Y OR GREATE R [facility] December 30, 2011 08:00 AM FORMER TOBACCO USER 7Y OR GREATE R [facility] January 21, 2011 01:16 PM FORMER TOBACCO USE >1Y <7Y [facility] Nov 27, 2009 08:09 AM FORMER TOBACCO USE >1Y <7Y [facility] Dec 27, 2008 12:32 AM FORMER TOBACCO USE >1Y <7Y [facility] January 03, 2008 12:52 PM FORMER TOBACCO USE >1Y <7Y [facility] January 11, 2007 10:43 AM FORMER TOBACCO USE >1Y <7Y [facility] Advance Directives: All historical and current Section Date Range: From patient's date of to the date document was created. This section includes ALL of a patient's completed or amended [place] Advance and Rescinded Directives. The entries below indicate that a directive exists for the patient, but an actual copy is not included with this document. The data comes from all [place] facilities. Date Advance Directives Provider Source Dec 04, 2009 CLINICAL WARNING KAMARI CUMMINGS [facility] Pathology Reports: +/- 30 days of the [...] the Encounter. The data comes from all [place] treatment facilities. Date/Time Pathology Report Provider Source Apr 19, 2023 12:00 AM LR MICROBIOLOGY RE PORT: Accession [UID]: [id number] [[id number]] Received: Apr 20, 2023@11:54 Collection sample: SPUTUM Collection date: Apr 19, 2023 00:00 Provider: ANTONIETTA CASTILLO Comment on specimen: RECEIVED IN STERILE CUP [facility] Apr 18, 2023 12:00 AM LR MICROBIOLOGY RE PORT: Accession [UID]: [id number] [[id number]] Received: Apr 20, 2023@11:54 Collection sample: SPUTUM Collection date: Apr 18, 2023 00:00 Provider: ANTONIETTA CASTILLO Comment on specimen: RECEIVED IN STERILE CUP [facility] Apr 17, 2023 12:00 AM LR MICROBIOLOGY RE PORT: Reporting Lab: [facility] [CLIA# [id number]] [place] [address] Accession [UID]: [id number] [[id number]] Received: Apr 20, 2023@11:53 Collection sample: SPUTUM Collection date: Apr 17, 2023 00:00 Provider: ANTONIETTA CASTILLO Comment on specimen: RECEIVED IN STERILE CUP Test(s) ordered: AFB SMEAR..................... completed: Apr 21, 2023 15:18 AFB CULTURE................... completed: Jun 07, 2023 * MYCOBACTERIOLOGY FINAL REPORT => Jun 07, 2023 13:31 TECH CODE: 2196 Acid Fast Stain: NEGATIVE Mycobacterium: NO MYCOBACTERIA ISOLATED Mycobacteriology Remark(s): Deep first morning specimen (at least 1ml) is recommended. No more than 3 specimens per week. Avoid contamination with saliva. Test performed by [facility] [place] [address] THIS REPORT IS FINAL =--=--=--=--=--=--=--=--=--=--=--=- -=--=--=--=--=--=--=--=--=--=--=--= --=--=-- Performing Laboratory: Mycobacteriology Report Performed By: [facility] [CLIA# [id number]] [place] [address] [facility] Apr 17, 2023 12:00 AM LR MICROBIOLOGY RE PORT: Reporting Lab: [facility] [CLIA# [id number]] [place] [address] Accession [UID]: [id number] [[id number]] Received: Apr 20, 2023@11:53 Collection sample: SPUTUM Collection date: Apr 17, 2023 00:00 Provider: ANTONIETTA CASTILLO Comment on specimen: RECEIVED IN STERILE CUP Test(s) ordered: AFB SMEAR..................... completed: Apr 21, 2023 15:18 AFB CULTURE................... completed: Jun 07, 2023 * MYCOBACTERIOLOGY FINAL REPORT => Jun 07, 2023 13:31 TECH CODE: 2196 Acid Fast Stain: NEGATIVE Mycobacterium: NO MYCOBACTERIA ISOLATED Mycobacteriology Remark(s): Deep first morning specimen (at least 1ml) is recommended. No more than 3 specimens per week. Avoid contamination with saliva. Test performed by [facility] [place] [address] THIS REPORT IS FINAL =--=--=--=--=--=--=--=--=--=--=--=- -=--=--=--=--=--=--=--=--=--=--=--= --=--=-- Performing Laboratory: Mycobacteriology Report Performed By: [facility] [CLIA# [id number]] [place] [address] [facility] Encounter Notes: All associated encounter notes This section contains the clinical notes associated to the Encounter. Date/Time Encounter Note(s) Provider Source Apr 28, 2023 05:06 PM ADDENDUM: LOCAL TITLE: Addendum STANDARD TITLE: ADDENDUM DATE OF NOTE: APR 28, 2023@17:06:16 ENTRY DATE: APR 28, 2023@17:06:17 AUTHOR: ANTONIETTA CASTILLO EXP COSIGNER: URGENCY: STATUS: COMPLETED Attempted to call patient regarding sputum culture results and phone went to . Left generic . Cultures and labs have not so far been revealing for his CT changes and it remains unclear if this is an acute inflammatory/infectious process or progression of chronic fibrosis/parenchymal disease. Recommendation is for repeat noncon chest CT 3 months from prior and f/u in pulm clinic regarding next steps and consideration of antifibrotics. -please schedule to RTC in -repeat noncontrast chest CT prior to or day of clinic visit -continue inhalers -continue O2 for goal SPO2 >88% Antonietta Castillo MD PACCM Fellow /es/ ANTONIETTA CASTILLO Signed: 04/28/2023 17:27 Receipt Acknowledged By: 04/29/2023 15:10 /es/ SHANTHI BUSTILLO RN PULMONARY MEAT PROCESS WORKER 04/29/2023 11:10 /es/ GALILEO MARIE MSA --- Original Document --- 04/09/23 PULMONARY CHEST AND TUMOR CONFERENCE: Chest Conference Summary Date of conference: Mar Presented by:Antonietta Castillo Has patient been presented before? No Question: Next steps for diagnosis and consideration of empiric antifibrotics or steroids See Pulm Consult note dated Mar for further information. Impression: Patient is a 77 yo male with <15 pack year smoking history and minimal exposure history who has had progressive emphysema and now on 4 LPM O2 with new fibrotic and GGO findings on CT chest in 01/2023. Recommendations: Sputum sampling to be mailed out to him first and will await staining before schedulings bronch Patient contacted 04/09/23 @ 0911 He is now reporting that he does produce sputum and so we have decided to send him sputum collection kits and will await staining prior to scheduling bronchoscopy. Antonietta Castillo MD PAC PGY4 /johana/ ANTONIETTA CASTILLO Signed: 04/09/2023 09:34 04/13/2023 ADDENDUM STATUS: COMPLETED Patient was contacted last week by myself and clinic MAs regarding sputum samples. Cosigning Pulm nursing staff here to assist with follow up Antonietta welch/ ANTONIETTA CASTILLO Signed: 04/13/2023 08:44 Receipt Acknowledged By: 04/13/2023 11:56 /johana/ MG NGUYỄN, RN REGISTERED NURSE for ANTONIETTA UNDERWOOD [facility] Apr 13, 2023 08:43 AM ADDENDUM: LOCAL TITLE: Addendum STANDARD TITLE: ADDENDUM DATE OF NOTE: APR 13, 2023@08:43:35 ENTRY DATE: APR 13, 2023@08:43:36 AUTHOR: ANTONIETTA CASTILLO EXP COSIGNER: URGENCY: STATUS: COMPLETED Patient was contacted last week by myself and clinic MAs regarding sputum samples. Cosigning Pulm nursing staff here to assist with follow up Antonietta welch/ ANTONIETTA CASTILLO Signed: 04/13/2023 08:44 Receipt Acknowledged By: 04/13/2023 11:56 /johana/ MG NGUYỄN, RN REGISTERED NURSE for STEVE Mena ERICKA --- Original Document --- 04/09/23 PULMONARY CHEST AND TUMOR CONFERENCE: Chest Conference Summary Date of conference: Mar Presented by:Antonietta Castillo Has patient been presented before? No Question: Next steps for diagnosis and consideration of empiric antifibrotics or steroids See Pulm Consult note dated Mar for further information. Impression: Patient is a 77 yo male with <15 pack year smoking history and minimal exposure history who has had progressive emphysema and now on 4 LPM O2 with new fibrotic and GGO findings on CT chest in 01/2023. Recommendations: Sputum sampling to be mailed out to him first and will await staining before schedulings bronch Patient contacted 04/09/23 @ 0911 He is now reporting that he does produce sputum and so we have decided to send him sputum collection kits and will await staining prior to scheduling bronchoscopy. Antonietta Catsillo MD [facility] PGY4 /es/ ANTONIETTA CASTILLO Signed: 04/09/2023 09:34 ANTONIETTA CASTILLO [facility] Apr 09, 2023 08:57 AM PULMONARY NOTE: LOCAL TITLE: PULMONARY CHEST AND TUMOR CONFERENCE STANDARD TITLE: PULMONARY NOTE DATE OF NOTE: APR 09, 2023@08:57 ENTRY DATE: APR 09, 2023@08:57:03 AUTHOR: ANTONIETTA CASTILLO EXP COSIGNER: URGENCY: STATUS: COMPLETED PULMONARY CHEST AND TUMOR CONFERENCE Has ADDENDA Chest Conference Summary Date of conference: Mar Presented by:Antonietta Castillo Has patient been presented before? No Question: Next steps for diagnosis and consideration of empiric antifibrotics or steroids See Pulm Consult note dated Mar for further information. Impression: Patient is a 77 yo male with <15 pack year smoking history and minimal exposure history who has had progressive emphysema and now on 4 LPM O2 with new fibrotic and GGO findings on CT chest in 01/2023. Recommendations: Sputum sampling to be mailed out to him first and will await staining before schedulings bronch Patient contacted 04/09/23 @ 0911 He is now reporting that he does produce sputum and so we have decided to send him sputum collection kits and will await staining prior to scheduling bronchoscopy. Antonietta Castillo MD [facility] PGY4 /johana/ ANTONIETTA CASTILLO Signed: 04/09/2023 09:34 04/13/2023 ADDENDUM STATUS: COMPLETED Patient was contacted last week by myself and clinic MAs regarding sputum samples. Cosigning Pulm nursing staff here to assist with follow up Antonietta Castillo MD /johana/ ANTONIETTA CASTILLO Signed: 04/13/2023 08:44 Receipt Acknowledged By: 04/13/2023 11:56 /es/ MG NGUYỄN, RN REGISTERED NURSE for STEVE BARNETT 04/28/2023 ADDENDUM STATUS: COMPLETED Attempted to call patient regarding sputum culture results and phone went to . Left generic . Cultures and labs have not so far been revealing for his CT changes and it remains unclear if this is an acute inflammatory/infectious process or progression of chronic fibrosis/parenchymal disease. Recommendation is for repeat noncon chest CT 3 months from prior and f/u in pulm clinic regarding next steps and consideration of antifibrotics. -please schedule to RTC in May/June -repeat noncontrast chest CT prior to or day of clinic visit -continue inhalers -continue O2 for goal SPO2 >88% Antonietta Castillo MD PACCM Fellow /es/ ANTONIETTA CASTILLO Signed: 04/28/2023 17:27 Receipt Acknowledged By: * AWAITING SIGNATURE * SHANTHI BUSTILLO * AWAITING SIGNATURE * GALILEO YANCEY AMBER RAE [facility] Apr 08, 2023 08:59 AM PULMONARY CONSULT: LOCAL TITLE: PULMONARY CONSULT STANDARD TITLE: PULMONARY CONSULT DATE OF NOTE: APR 08, 2023@08:59 ENTRY DATE: APR 08, 2023@08:59:54 AUTHOR: ANTOINETTA CASTILLO EXP COSIGNER: URGENCY: STATUS: COMPLETED PULMONARY CONSULT Has ADDENDA PULMONOLOGY CONSULT - Outpatient - NEW We were asked to see this patient by Provider EDUARDO PRATT for chronic dyspnea, COPD, and new lung findings on CT History of Present Illness: The patient is a(n) 77 year old MALE with a 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 Newly initiated on 4 LPM O2 this summer after presenting to primary clinic and noted to be severely dyspnic and satting in 70s. He reports his breathing is doing much better since starting O2. He used to be able to walk <1 block and now he can walk several, he still does not do stairs. He used to wake up gasping for air and now he does not (sleeps through the night). No cough and no sputum production, no fever, weight loss, night sweats, no chest pain at rest but does get some sharp left sided exertional chest pain. . Using Symbicort BID, spiriva daily. 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 - no severe PNAs, no COVID, no sever bronchitis Past medical history: Computerized Problem List is the source for the followin. Osteoarthritis (SNOMED CT 902059619) ACTIVE 2. Depression (SNOMED CT 34418051) ACTIVE 3. Posttraumatic stress disorder (SNOMED CT 54532364) ACTIVE 4. Preglau/Glauc Suspect ACTIVE 5. Malignant tumor of oropharynx ACTIVE 1977 6. Coronary artery disease ACTIVE S/P stents to RCA and Cx in 2003 (ANW) Cath (2011) No significant lesions. Rest MPS (2016) No ischemia. EF 58%. Echo (2016) EF 60-65%. Normal chambers and valves. 2019 Stress Thalium: 1. No ischemia demonstrated. 7. Hypertension ACTIVE 8. Hyperlipidemia ACTIVE 9. COPD - Chronic obstructive pulmonary disease ACTIVE FEV1/FVC (2009) 2.00/3.13. FEV1 70% pred. FEV1% 64. Moderatre COPD 10. History of malignant neoplasm of skin excluding me ACTIVE H/O recurrent non-melanoma skin cancers 11. History of venous thrombosis ACTIVE H/O provoked LE DVT in 1977. Recurrent unprovoked DVT in 1986. H/O unprovoked right leg DVT in 2019 12. Chronic rhinitis ACTIVE 13. Syncope ACTIVE 14. Long-term current use of anticoagulant ACTIVE 15. History of adenomatous polyp of colon ACTIVE 16. Peripheral neuropathy ACTIVE 17. Benign prostatic hyperplasia with outflow obstruct ACTIVE 18. Hypoxic ACTIVE Chronic 78 - 85% RA 19. Pulmonary hypertension ACTIVE Mild 11/19 Echo 20. Ex-tobacco user ACTIVE Quit 2003, 15 pack year hx 21. Depression, Unspec INACTIVE 22. Gynecomastia * (ICD-9-CM 611.1) INACTIVE 23. Pneumonia, organism unspecified (ICD-9-CM 486.) INACTIVE Medications: Active Outpatient Medications (including Supplies): Active Outpatient Medications Status 1) ALBUTEROL 90MCG (CFC-F) 200D ORAL INHL INHALE 2 PUFFS ACTIVE BY INHALATION EVERY 4 HOURS NEEDED FOR SHORTNESS OF BREATH 2) ATORVASTATIN CALCIUM 40MG TAB TAKE ONE TABLET BY ACTIVE (S) MOUTH EVERY DAY FOR CHOLESTEROL 3) BRIMONIDINE TARTRATE 0.2% OPH SOLN INSTILL 1 DROP IN ACTIVE BOTH EYES TWICE A DAY FOR GLAUCOMA SPACE 10 MINUTES APART FROM OTHER EYE DROPS 4) CALCIUM CARBONATE 650MG (CA 260MG) TAB TAKE ONE ACTIVE (S) TABLET BY MOUTH EVERY DAY 5) CARBOXYMETHYLCELLULOSE NA 0.25% OPH SOLN INSTILL 2 ACTIVE DROPS IN OPERATIVE EYE EVERY HOUR NEEDED FOR DRYNESS AND IRRITATION 6) CHOLECALCIF 25MCG (D3-1,000UNIT) TAB TAKE ONE TABLET ACTIVE BY MOUTH EVERY DAY 7) CYANOCOBALAMIN 1000MCG TAB TAKE ONE TABLET BY MOUTH ACTIVE EVERY DAY 8) ERYTHROMYCIN 0.5% OPH OINT APPLY A THIN LAYER TO ACTIVE INCISION(S) TO OPERATIVE EYE FOUR TIMES A DAY 9) FLUTICAS 500/SALMETEROL 50 INHL DISK 60 INHALE 1 PUFF ACTIVE (S) BY INHALATION TWICE A DAY FOR COPD *RINSE MOUTH AFTER EACH USE* 10) GABAPENTIN 300MG CAP TAKE TWO CAPSULES BY MOUTH TWICE ACTIVE (S) A DAY FOR NERVE PAIN IN HANDS 11) GUAIFENESIN 200MG TAB TAKE ONE TABLET BY MOUTH THREE ACTIVE TIMES A DAY NEEDED FOR PHLEGM 12) HYDROCHLOROTHIAZIDE 12.5MG TAB TAKE ONE TABLET BY ACTIVE (S) MOUTH EVERY DAY FOR BLOOD PRESSURE 13) IPRATROPIUM BR 0.03% NASAL SPRAY SPRAY 2 SPRAYS IN ACTIVE (S) EACH NOSTRIL TWICE A DAY FOR ALLERGIES 14) RIVAROXABAN 20MG TAB TAKE ONE TABLET BY MOUTH EVERY ACTIVE (S) DAY WITH THE LARGEST MEAL OF THE DAY TO TREAT AND/OR PREVENT BLOOD CLOTS 15) SERTRALINE HCL 100MG TAB TAKE ONE AND ONE-HALF ACTIVE (S) TABLETS BY MOUTH EVERY DAY 16) TIOTROPIUM 2.5MCG/ACTUAT 60D ORAL INHL INHALE TWO ACTIVE (S) PUFFS BY INHALATION EVERY DAY FOR COPD MEDICATION RECONCILIATION Outpatient At this visit I have reviewed the medication list, and discussed relevant medications with the patient/surrogate. An updated patient medication list was given to the participant(s). No Change Allergies and Immunizations: PENICILLIN (May 15, 1994) SIMVASTATIN (Apr 01, 2006) LOBSTER (Jul 12, 2007) SCALLOPS (Jul 12, 2007) LISINOPRIL (Apr 03, 2008) METOPROLOL (Apr 03, 2008) FISH (Dec 04, 2009) CONTRAST MEDIA (Jul 06, 2022) IM - Immunizations Immunization Series Date Facility Reaction Info COVID-19 (WireImage), MRNA, LNP-S, B* 1 08/17/2022 [facility] COVID-19 (PFIZER), MRNA, LNP-S, P* 3 07/22/2021 No Site 2 10/26/2020 [facility] <C> 1 10/05/2020 [facility] <[facility]> COVID-19 (WireImage), MRNA, LNP-S, P* 3 02/05/2022 [facility] <C> INFLUENZA (HISTORICAL) 08/12/2004 [facility] 06/22/1997 [facility] INFLUENZA VACCINE, QUADRIVALENT,* 06/30/2022 [facility] INFLUENZA, HIGH DOSE SEASONAL 06/23/2017 [facility] 06/24/2016 [facility] INFLUENZA, INJECTABLE, QUADRIVALE* 05/29/2021 [facility] 05/23/2020 No Site INFLUENZA, SEASONAL, INJECTABLE,* 05/29/2019 [facility] 06/07/2018 [facility] 06/26/2015 [facility] INFLUENZA, UNSPECIFIED FORMULATIO* 06/28/2014 [facility] 05[facility]17/2013 [facility] 06/22/2012 [facility] 06/15/2011 [facility] 06/18/2010 [facility] 05/28/2009 [facility] 07/02/2008 [facility] 07/05/2007 [facility] 08/02/2006 [facility] 07/08/2005 [facility] 08/12/2004 [facility] 07/05/2003 [facility] 06/19/1999 [facility] NOVEL [id number], ALL FORM* 08/31/2009 Loc[facility] PNEUMOCOCCAL CONJUGATE PCV 13 05/17/2015 [facility] <C> PNEUMOCOCCAL, UNSPECIFIED FORMULA* 09/21/2011 [facility] <C> [place].va? TD(ADULT) UNSPECIFIED FORMULATION 12/06/2002 [facility] TDAP 08/17/2022 [place] 11/10/2012 [facility] <C> ZOSTER LIVE 03/24/2012 [place] <C> ZOSTER RECOMBINANT 2 12/20/2018 [place] 1 10/21/2018 [facility] <C> See the Detailed Immunizations Health Summary Component[DIM] for Comments Family history: No lung disease No autoimmune disease No pancreatic disease Physical exam: Vitals: Blood pressure: 136/70 (04/08/2023 08:56) Pulse: 63 (04/08/2023 08:56) Respiration: 18 (04/08/2023 08:56) Temperature: 97 F [36.1 C] (04/08/2023 08:56) Weight: 165 lb [74.84 kg] (04/08/2023 08:56) Pulse Oximetry: 90% (04/08/2023 08:56) Gen: Seated comfortably in chair, NAD, nontoxic, comfortable and well nourished and well groomed Pulm: CATHI without breath sounds, RLL with harsh inspiratory crackles, otherwise good air movement without wheezing, no increased WOB, NC in place Cardio: RRR, no murmurs, no edema Extremities: no cyanosis or clubbing HEENT: EOMI, closes R eye during interview because he reports he cannot see well out of it due to blurriness, has optho appt Relevant Labs and Imaging: ==>Radiology reports: CT chest 01/2023 1. New mixed mixed groundglass, interlobular septal, [...] 6. Hepatic parenchymal cysts. 7. Adrenal adenomatous change ==>Cardiac evaluation ECHO 01/2023 The left ventricular systolic function is normal. The visually estimated ejection fraction is 55-60%. The right ventricular systolic function is normal. The inferior vena cava is normal in size, and collapses normally with respiration. There is mild pulmonary hypertension. Estimated RVSP is 45 mmHg. ==>PFT Reports: 04/08/23 Spirometry Ref LLN Pre ZScore% Ref FVC L 3.06 2.26 2.00 -2.19 65.4 FEV 1 L 2.33 1.63 1.15 -2.66 49.3 FEV1/FVC% 77 63 57 -2.29 PEF L/s 6.97 4.98 3.37 -2.98 48.4 Z-Score Parameter FVC FEV1 FEV1/FVC TLC RV DLCO_SB 04/08/2023 2.00 1.15 58 7.96 Interpretation: Definite Obstruction: FEV1/FVC ratio < CI.Moderate: FEV1 z-score -2.51 to -4.0. DLCO is Reduced: Severe Impairment. Signed By: Antonio Isbell MD ==>Labs Noted: chronically elevated bicarb to 30 on BMPs CBC HGB 13.9 (02/19/23) PLT 203 (02/19/23) WBC 5.44 (02/19/23) Differential: INR 1.1 PLASMA (06/30/22 07:27) Labs, tests and imaging results listed in pulmonary note were discussed with patient. Assessment and Plan Patient is a 77 yo male with pmh ischemic heart disease s/p PCI, COPD, and now hypoxic respiratory failure. He had been followed for pulmonary nodules until 2019 with emphysematous changes on imaging that, even at that time, seemed out of proportion to his smoking/exposure history. He is now being seen for a significantly reduced DLCO, hypoxic respiratory failure requiring baseline 4 LPM, and new/significantly worsened interstitial opacities and fibrosis, particularly in CATHI. After an extensive review of his history we cannot identify an etiology for these findings - no clear autoimmune disease, no severe/notable infections, no radiation or medication exposure, no environmental exposures beyond <15 pack year smoking history (quit 20 years ago). We plan to discuss his case at Chest Conference and discuss possibilities for further diagnostics (Bronchoscopy seems risky given his O2 requirements) and whether to consider antifibrotic treatment. In the meantime, we will continue a broad lab work up for AI components as well as antitrypsin deficiency and check LFTs prior to possible therapy. Plan -sleep study referral -chest conference -LFTs -[id number] -CLIFFORD with reflex to [facility], RF, ANCA, CRP, ESR, CCP I have discussed the patient with my supervising/collaborating practitioner, Dr. Isbell , and they agree with my assessment/plan. If you have questions or urgent need to contact the pulmonary service, please refer to the convention services director-calendar. For pertinent literature, please refer to Pulmonary in [address]. Antonietta Castillo MD [facility] Fellow, PGY4 /es/ ANTONIETTA CASTILLO Signed: 04/08/2023 13:05 Receipt Acknowledged By: 04/08/2023 17:45 /johana/ ATNONIO ISBELL MD [facility] STAFF PHYSICIAN 04/08/2023 ADDENDUM STATUS: COMPLETED 77-year-old man with a remarkably abnormal chest CT in the setting of a fairly minimal smoking history. Chest CT shows extensive emphysema, some fibrosis, and an area of extensive fibrosis/bronchiectasis in the left upper lobe. He denies any significant infectious symptoms in the past. Work-up for ILD and alpha-1 antitrypsin obtained today. We will discussed the case at chest conference on Wednesday. /johana/ ANTONIO ISBELL MD [facility] STAFF PHYSICIAN Signed: 04/08/2023 17:47 ANTONIETTA CASTILLO [facility]
--- OUTSIDE RECORDS SUMMARY | 2024-02-26 09:13 | XMS_ITS ---
Author Name [facility] Organization [facility] Address [address] [place] [address] Care Team Providers Care Supply Room Clerk Name Role Phone EDUARDO PRATT Primary Care [...] PART A Sep 30, 2010 PART A [phone] Isaac IGLESIAS PATIENT Selected Encounter This section includes the information on record at [place] for the Encounter. Date/Time Encounter Type Encounter Description Reason Pro vider Source Mar 26, 2023 09:00 AM Outpatient Encounter PSYCHOGERIATRIC - INDIVIDUAL IHE Encounter Template Text not used by [place] Plan of Treatment: Future Appointments (+ 6 [...] 20 appointments. The data comes from all [facility]. Appointment Date/Time Appointment Type Appointme nt Facility Name Apr 08, 2023 08:20 AM AMBULATORY - MEDICINE [facility] Apr 08, 2023 09:30 AM AMBULATORY - MEDICINE [facility] Apr 08, 2023 10:45 AM AMBULATORY - MEDICINE [facility] May 18, 2023 08:20 AM AMBULATORY - SURGERY [facility] Jun 02, 2023 08:30 AM AMBULATORY - PSYCHIATRY [facility] Jun 08, 2023 08:30 AM AMBULATORY - NONE [facility] Jun 11, 2023 09:00 AM AMBULATORY - NONE [facility] Jun 21, 2023 09:00 AM AMBULATORY - MEDICINE [facility] Jun 22, 2023 08:15 AM AMBULATORY - NONE [facility] Jun 28, 2023 08:30 AM AMBULATORY - SURGERY [facility] Jul 01, 2023 12:30 PM AMBULATORY - MEDICINE [facility] Jul 27, 2023 08:30 PM AMBULATORY - MEDICINE [facility] Sep 03, 2023 09:00 AM AMBULATORY - PSYCHIATRY [facility] Sep 07, 2023 07:30 AM AMBULATORY - SURGERY [facility] Sep 09, 2023 11:00 AM AMBULATORY - SURGERY [facility] Active, Pending, and Scheduled Orders This section includes a listing of several types of active, pending, and scheduled orders, including clinic medications orders, diagnostic test orders, procedure orders and consult orders; where the start date of the order is 45 days before the date of the Encounter or 45 days after the date of theEncounter. The data comes from all [facility]. Test Date/Time Test Type Test Details Facility Name Apr 09, 2023 09:25 AM Laboratory - Microbiology Order CULTURE & SUSCEPTIBILITY BLOOD SP ONCE [facility] Lab Results: +/- 30 days of the [...] Range Comment Apr 08, 2023 10:26 AM [facility] ISMAEL WITH REFLEX TO MORIAH/DNA Specimen Type: SERUM No comment entered. Ordering Provider: INA MCKENZIE Report Released Date/Time: Apr 08, 2023 10:05 AM Reporting Lab: [facility] [address] Performing Lab: [facility] [address] .ANTINUCLEAR ABELARDO NEGATIVE Negative Apr 08, 2023 10:26 AM [facility] ANCA Specimen Type: SERUM No comment entered. Ordering Provider: INA MCKENZIE Report Released Date/Time: Apr 08, 2023 10:05 AM Reporting Lab: [facility] [address] Performing Lab: [facility] [address] .CYTOPLASMIC ANCA NEGATIVE See_Commen t .PERINUCLEAR ANCA NEGATIVE See_Commen t Apr 08, 2023 10:26 AM [facility] ELP/IMMFIX,SERUM PANEL Specimen Type: SERUM No comment entered. Ordering Provider: INA MCKENZIE Report Released Date/Time: Apr 08, 2023 10:05 AM Reporting Lab: [facility] [address] Performing Lab: [facility] [address] PROTEIN,TOTAL 8.4 g/dL H 6.0-8.3 .ALBUMIN FRACTION 4.20 g/dL 3.66-4.78 .ALPHA 1 FRACTION 0.39 g/dL H 0.14-0.38 .ALPHA 2 FRACTION 0.96 g/dL H 0.50-0.90 .BETA 1 FRACTION 0.55 g/dL 0.33-0.55 .BETA 2 FRACTION 0.49 g/dL 0.20-0.52 .GAMMA FRACTION 1.81 g/dL H 0.58-1.72 .TOTAL PROTEIN 8.4 g/dL H 6.0-8.3 .INTERPRETATION NO MONOCLONALS DETECTED Apr 08, 2023 10:26 AM [facility] SED RATE Specimen Type: BLOOD No comment entered. Ordering Provider: INA MCKENZIE Report Released Date/Time: Apr 08, 2023 10:05 AM Reporting Lab: [facility] [address] Performing Lab: [facility] [address] SED RATE 18 mm/h H 5-15 Apr 08, 2023 10:26 AM [facility] C-REACTIVE PROTEIN Specimen Type: PLASMA No comment entered. Ordering Provider: INA MCKENZIE Report Released Date/Time: Apr 08, 2023 10:05 AM Reporting Lab: [facility] [address] Performing Lab: [facility] [address] C-REACTIVE PROTEIN 11.13 mg/L H <5.00 Apr 08, 2023 10:26 AM [facility] ANTI-CCP Specimen Type: PLASMA No comment entered. Ordering Provider: INA MCKENZIE Report Released Date/Time: Apr 08, 2023 10:05 AM Reporting Lab: [facility] [address] Performing Lab: [facility] [address] ANTI-CCP <0.5 <4.9 Apr 08, 2023 10:26 AM [facility] CK,TOTAL Specimen Type: PLASMA No comment entered. Ordering Provider: INA MCKENZIE Report Released Date/Time: Apr 08, 2023 10:05 AM Reporting Lab: [facility] [address] Performing Lab: [facility] [address] CK,TOTAL 91 U/L 39-208 Apr 08, 2023 10:26 AM [facility] [id number] Specimen Type: SERUM No comment entered. Ordering Provider: INA MCKENZIE Report Released Date/Time: Apr 08, 2023 10:05 AM Reporting Lab: [facility] [address] Performing Lab: [facility] [address] [id number]-6-[id number] PSIN 184 mg/dL 90-200 Apr 08, 2023 10:26 AM [facility] RHEUMATOID FACTOR Specimen Type: SERUM No comment entered. Ordering Provider: INA MCKENZIE Report Released Date/Time: Apr 08, 2023 10:05 AM Reporting Lab: [facility] [address] Performing Lab: [facility] [address] RHEUMATOID FACTOR <13 [IU]/mL <29 Apr 08, 2023 10:26 AM [facility] COMPREHENSIVE METABOLIC PANEL+MG Specimen Type: PLASMA No comment entered. Ordering Provider: INA MCKENZIE Report Released Date/Time: Apr 08, 2023 10:05 AM Reporting Lab: [facility] [address] Performing Lab: [facility] [address] CREATININE 1.3 mg/dL H 0.7-1.2 UREA NITROGEN [...] L >60 Apr 08, 2023 10:26 AM [facility] CBC & DIFF Specimen Type: BLOOD Comment: Automated Differential Performed Ordering Provider: INA MCKENZIE Report Released Date/Time: Apr 09, 2023 09:09 AM Reporting Lab: [facility] [address] Performing Lab: [facility] [address] WBC 5.19 10*3/uL 4.0-11.0 RBC 5.51 10*6/uL [...] 0.2 ABS IMMATURE GRAN 0.01 10*3/uL 0-0.1 Social History: Smoking Status (Most current) and Tobacco Use (All prior to encounter date) This section includes the most current, and the historical, smoking and tobacco- related health factors from the [place] facility where the Encounter took place. Current Smoking Status This section includes the most current smoking, or tobacco-related health factor, from the [place] facility where the Encounter took place. Date/Time Current Smoking Status Comment Facil ity Aug 17, 2022 09:15 AM VA-TOBACCO QUIT 15 YRS OR MORE [facility] Tobacco Use History This section includes a history of the smoking, or tobacco-related health factors, that were collected on or before the date of the Encounter. The data comes from the [place] facility where the Encounter took place. Date/Time Smoking Status/Tobacco Use Comment F acility Aug 17, 2022 09:15 AM VA-TOBACCO QUIT 15 YRS OR MORE [facility] Oct 27, 2021 09:00 AM VA-TOBACCO FORMER USER [facility] Oct 27, 2021 09:00 AM VA-TOBACCO QUIT 15 YRS OR MORE [facility] Sep 19, 2020 09:00 AM VA-TOBACCO FORMER USER [facility] Sep 19, 2020 09:00 AM VA-TOBACCO QUIT 15 YRS OR MORE [facility] Dec 20, 2018 10:09 AM VA-TOBACCO FORMER USER [facility] Dec 20, 2018 10:09 AM VA-TOBACCO QUIT 15 YRS OR MORE [facility] Dec 07, 2017 09:12 AM FORMER TOBACCO USER 7Y OR GREATE R [facility] Apr 21, 2017 08:35 AM FORMER TOBACCO USER 7Y OR GREATE R [facility] Apr 28, 2016 08:20 AM FORMER TOBACCO USER 7Y OR GREATE R [facility] January 22, 2015 10:07 AM FORMER TOBACCO USER 7Y OR GREATE R [facility] January 25, 2014 10:11 AM FORMER TOBACCO USER 7Y OR GREATE R [facility] December 30, 2011 08:00 AM FORMER TOBACCO USER 7Y OR JEAN-PAULE R [facility] January 21, 2011 01:16 PM FORMER TOBACCO USE >1Y <7Y [facility] Nov 27, 2009 08:09 AM FORMER TOBACCO USE >1Y <7Y [facility] Dec 27, 2008 12:32 AM FORMER TOBACCO USE >1Y <7Y [facility] January 03, 2008 12:52 PM FORMER TOBACCO USE >1Y <7Y [facility] January 11, 2007 10:43 AM FORMER TOBACCO USE >1Y <7Y [facility] Advance Directives: All historical and current Section Date Range: From patient's date of to the date document was created. This section includes ALL of a patient's completed or amended [place] Advance and Rescinded Directives. The entries below indicate that a directive exists for the patient, but an actual copy is not included with this document. The data comes from all [facility]. Date Advance Directives Provider Source Dec 04, [...] the Encounter. The data comes from all [place] treatment facilities. Date/Time Radiology Report Provider Source Mar 01, 2023 07:[address] (C) CHEST (P): ROSS IGLESIAS [id number] -1945 M Exm Date: MAR 01, 2023@07:34 Req Phys: EDUARDO PRATT Loc: [facility] PACT FLAME 4D (Req'g Loc) Img Loc: CT IMAGING Service: Unknown (Case [id number] COMPLETE) CT (C) CHEST W/O CONTRAST (CT Detailed) CPT:51961 Reason for Study: Dyspnea, hypoxia, CXR findings [...] pager listed below: User placing orders pager: [phone] [facility] 4013 LAST 3: Collection DT Specimen Test Name [...] ESTIMATED GFR(eGF 46 L Ref: >=60 Allergies: ([place] only) PENICILLIN (May 15, 1994) SIMVASTATIN (Apr 01, 2006) LOBSTER (Jul 12, 2007) SCALLOPS (Jul 12, 2007) LISINOPRIL (Apr 03, 2008) METOPROLOL (Apr 03, 2008) FISH (Dec 04, 2009) CONTRAST MEDIA (Jul 06, 2022) Report Status: Verified Date Reported: MAR 01, 2023 Date Verified: MAR 01, 2023 Sound Technician Supervisor E-Sig:/ES/KAY VAZ MD Report: Noncontrast chest CT [...] Primary Interpreting Staff: KAY VAZ MD, RADIOLOGIST (Sound Technician Supervisor) /KAY MIKE [facility] Pathology Reports: +/- 30 days [...] the Encounter. The data comes from all [place] treatment facilities. Date/Time Pathology Report Provider Source Apr 19, 2023 12:00 AM LR MICROBIOLOGY RE PORT: Accession [UID]: [id number] [[id number]] Received: Apr 20, 2023@11:54 Collection sample: SPUTUM Collection date: Apr 19, 2023 00:00 Provider: INA MCKENZIE Comment on specimen: RECEIVED IN STERILE CUP [facility] Apr 18, 2023 12:00 AM LR MICROBIOLOGY RE PORT: Accession [UID]: [id number] [[id number]] Received: Apr 20, 2023@11:54 Collection sample: SPUTUM Collection date: Apr 18, 2023 00:00 Provider: INA MCKENZIE Comment on specimen: RECEIVED IN STERILE CUP [facility] Apr 17, 2023 12:00 AM LR MICROBIOLOGY RE PORT: Reporting Lab: [facility] [CLIA# [id number]] [place] [address] Accession [UID]: [id number] [[id number]] Received: Apr 20, 2023@11:53 Collection sample: SPUTUM Collection date: Apr 17, 2023 00:00 Provider: INA MCKENZIE Comment on [...] Avoid contamination with saliva. Test performed by [facility] [place] [address] THIS REPORT IS FINAL =--=--=--=--=--=--=--=--=--=--=--=- -=--=--=--=--=--=--=--=--=--=--=--= --=--=-- Performing Laboratory: Mycobacteriology Report Performed By: [facility] [CLIA# [id number]] [place] [address] [facility] Apr 17, 2023 12:00 AM LR MICROBIOLOGY RE PORT: Reporting Lab: [facility] [CLIA# [id number]] [place] [address] Accession [UID]: [id number] [[id number]] Received: Apr 20, 2023@11:53 Collection sample: SPUTUM Collection date: Apr 17, 2023 00:00 Provider: INA MCKENZIE Comment on [...] Avoid contamination with saliva. Test performed by [facility] [place] [address] THIS REPORT IS FINAL =--=--=--=--=--=--=--=--=--=--=--=- -=--=--=--=--=--=--=--=--=--=--=--= --=--=-- Performing Laboratory: Mycobacteriology Report Performed By: [facility] [CLIA# [id number]] [address] [place] [address] [facility] Encounter Notes: All associated encounter notes This section contains the clinical notes associated to the Encounter. Date/Time Encounter Note(s) Provider Source Mar 31, 2023 12:02 PM ADDENDUM: LOCAL TITLE: Addendum STANDARD TITLE: ADDENDUM DATE OF NOTE: MAR 31, 2023@12:02:52 ENTRY DATE: MAR 31, 2023@12:02:52 AUTHOR: JESSY TAVARES EXP COSIGNER: URGENCY: STATUS: COMPLETED SUBJECT: F/U NO SHOW Multiple calls to to Mr. Iglesias at phone number [phone] Calderón's request to please attempt outreach per NO SHOW protocol with no tangible results. ASSESSMENT: 1) Based on medical records review, the is scheduled to see Dr. Calderón next on 06/02/23 at 08:30 and scheduled to see Dr. Calderón again on 09/03/2023 at 0900. PLAN: 1) Alert scheduling staff to the multiple follow up appointments with Dr. Calderón for review and clarification moving forward. /johana/ JESSY TAVARES RN-BSN, AGATHA RN-BSN, MA Signed: 03/31/2023 12:09 Receipt Acknowledged By: 03/31/2023 12:50 /johana/ GASTON CALDERÓN Staff Physician 03/31/2023 14:29 /johana/ KATHIE ROMAN ASSURANCE ASSOCIATE 04/01/2023 15:09 /johana/ DOMINIQUE DIALLOEN TEJ ASSURANCE ASSOCIATE --- Original Document --- 03/26/23 NO SHOW NOTE: Patient did not appear for scheduled appointment. SAFETY ASSESSMENT: RISKS: Medical, male, MH dx, 's illness. PROTECTIVE FACTORS: Denied SI at last patient encounter, no guns in home, cares about his / daughter and takes care of his spouse, daughter living with them, cares about his dog, has social support, stable financial/ living situation, future-oriented, help seeking, no hx of SAs or MH hospitalizations. ASSESSMENT: Chronic and acute low risk for safety concerns towards self and low towards others. No imminent risk for safety. Plan Based on Clinician Judgment of Risk: When patient did not arrive for face- to-face clinic visit called him at [phone]. Rang several times and then cut off. Waited several minutes and then tried calling the same number again - it again rang several times and then cut off - was not able to leave a message. Request Mr. Tavares please attempt outreach per No Show protocol. /david CALDERÓN Staff Physician Signed: 03/27/2023 16:44 Receipt Acknowledged By: 03/31/2023 12:02 /johana/ MARIBEL MARTINEZN, AGATHA RN-BSN, AGATHA 03/27/2023 ADDENDUM STATUS: COMPLETED Please markell today's appt as No Show. /david CALDERÓN Staff Physician Signed: 03/27/2023 16:45 Receipt Acknowledged By: 03/30/2023 16:32 /johana/ KATHIE ROMAN ASSURANCE ASSOCIATE JESSY TAVARES [facility] Mar 27, 2023 04:44 PM ADDENDUM: LOCAL TITLE: Addendum STANDARD TITLE: ADDENDUM DATE OF NOTE: MAR 27, 2023@16:44:51 ENTRY DATE: MAR 27, 2023@16:44:52 AUTHOR: GASTON CALDERÓN EXP COSIGNER: URGENCY: STATUS: COMPLETED Please markell today's appt as No Show. /david CALDERÓN Staff Physician Signed: 03/27/2023 16:45 Receipt Acknowledged By: 03/30/2023 16:32 /johana/ KATHIE ROMAN ASSURANCE ASSOCIATE --- Original Document --- 03/26/23 NO SHOW NOTE: Patient did not appear for scheduled appointment. SAFETY ASSESSMENT: RISKS: Medical, male, MH dx, 's illness. PROTECTIVE FACTORS: Denied SI at last patient encounter, no guns in home, cares about his / daughter and takes care of his spouse, daughter living with them, cares about his dog, has social support, stable financial/ living situation, future-oriented, help seeking, no hx of SAs or MH hospitalizations. ASSESSMENT: Chronic and acute low risk for safety concerns towards self and low towards others. No imminent risk for safety. Plan Based on Clinician Judgment of Risk: When patient did not arrive for face- to-face clinic visit called him at [phone]. Rang several times and then cut off. Waited several minutes and then tried calling the same number again - it again rang several times and then cut off - was not able to leave a message. Request Mr. Tavares please attempt outreach per No Show protocol. /david CALDERÓN Staff Physician Signed: 03/27/2023 16:44 Receipt Acknowledged By: * AWAITING SIGNATURE * JESSY TAVARES PETER B [facility] Mar 26, 2023 02:28 PM NO SHOW NOTE: LOCAL TITLE: NO SHOW NOTE STANDARD TITLE: NO SHOW NOTE DATE OF NOTE: MAR 26, 2023@14:28 ENTRY DATE: MAR 26, 2023@14:28:15 AUTHOR: GASTON CALDERÓN EXP COSIGNER: URGENCY: STATUS: COMPLETED NO SHOW NOTE Has ADDENDA Patient did not appear for scheduled appointment. SAFETY ASSESSMENT: RISKS: Medical, male, MH dx, 's illness. PROTECTIVE FACTORS: Denied SI at last patient encounter, no guns in home, cares about his / daughter and takes care of his spouse, daughter living with them, cares about his dog, has social support, stable financial/ living situation, future-oriented, help seeking, no hx of SAs or MH hospitalizations. ASSESSMENT: Chronic and acute low risk for safety concerns towards self and low towards others. No imminent risk for safety. Plan Based on Clinician Judgment of Risk: When patient did not arrive for face- to-face clinic visit called him at [phone]. Rang several times and then cut off. Waited several minutes and then tried calling the same number again - it again rang several times and then cut off - was not able to leave a message. Request Mr. Tavares please attempt outreach per No Show protocol. /johana/ GASTON CALDERÓN Staff Physician Signed: 03/27/2023 16:44 Receipt Acknowledged By: 03/31/2023 12:02 /johana/ JESSY TAVARES RN-BSN, AGATHA BENNETT-BSN, AGATHA 03/27/2023 ADDENDUM STATUS: COMPLETED Please markell today's appt as No Show. /david CALDERÓN Staff Physician Signed: 03/27/2023 16:45 Receipt Acknowledged By: 03/30/2023 16:32 /johnaa/ KATHIE ROMAN ASSURANCE ASSOCIATE 03/31/2023 ADDENDUM STATUS: COMPLETED Multiple calls to to Mr. Iglesias at phone number [phone] Calderón's request to please attempt outreach per NO SHOW protocol with no tangible results. ASSESSMENT: 1) Based on medical records review, the is scheduled to see Dr. Calderón next on 06/02/23 at 08:30 and scheduled to see Dr. Calderón again on 09/03/2023 at 0900. PLAN: 1) Alert scheduling staff to the multiple follow up appointments with Dr. Calderón for review and clarification moving forward. /johana/ JESSY TAVARES RN-BSN, MA RN-BSN, AGATHA Signed: 03/31/2023 12:09 Receipt Acknowledged By: * AWAITING SIGNATURE * GASTON CALDERÓN * AWAITING SIGNATURE * KATHIE ROMAN * AWAITING SIGNATURE * DOMINIQUE CLAUDIO PETER B [facility]
--- OUTSIDE RECORDS SUMMARY | 2024-02-26 09:14 | XMS_ITS | Encounter Summary ---
Author Name [facility] [place] Organization [facility] [place] Address [address] [place] [address] Care Team Providers Care Associate Financial Analyst Name Role Phone EDUARDO PRATT Primary Care [...] PART A Sep 30, 2010 PART A [phone] Isaac IGLESIAS PATIENT Selected Encounter This section includes the information on record at [place] for the Encounter. Date/Time Encounter Type Encounter Description Reason Provider Source Jul 01, 2023 12:30 PM OFFICE O/P EST HI 40-54 MIN PULMONARY/CHEST ICD-10-CM J44.9 Chronic obstructive pulmonary disease, unspecified EDSON AREVALO [facility] Encounter Template Text not used by [place] Assessments - Encounter Diagnoses This section includes the primary and secondary diagnoses documented for the Encounter. Date/Time Primary/Secondary Diagnosis Diagnosis Name Provider Source Jul 01, 2023 01:03 PM PRIMARY Chronic obstructive pulmonary disease, unspecified ANTONINA AREVALO [facility] Jul 01, 2023 01:03 PM SECONDARY skilled nursing (current) use of anticoagulants ANTONINA AREVALO [facility] Jul 01, 2023 01:03 PM SECONDARY Personal history of nicotine dependence ANTONINA AREVALO [facility] Jul 01, 2023 01:03 PM SECONDARY Pulmonary hypertension, unspecified ANTONINA AREVALO [facility] Jul 01, 2023 01:03 PM SECONDARY Syncope and collapse ANTONINA AREVALO [facility] Plan of Treatment: Future Appointments (+ 6 months) and Future Tests (+/- 45 days) The Plan of Treatment section includes future care activities for the patient [facility] [place] [facility] This section includes future appointments and future orders which are active, pending or scheduled. Future Appointments This section includes appointments that were scheduled to occur 6 months from the date of the Encounter, up to a maximum of 20 appointments. The data comes from all [facility] facilities. Appointment Date/Time Appointment Type Appointme nt Facility Name Jul 27, 2023 08:30 PM AMBULATORY - MEDICINE [facility] Sep 03, 2023 09:00 AM AMBULATORY - PSYCHIATRY [facility] Sep 07, 2023 07:30 AM AMBULATORY - SURGERY [facility] Sep 09, 2023 11:00 AM AMBULATORY - SURGERY [facility] Oct 11, 2023 07:00 AM AMBULATORY - NONE [facility] Oct 11, 2023 08:00 AM AMBULATORY - MEDICINE [facility] Oct 15, 2023 07:45 AM AMBULATORY - SURGERY [facility] Nov 05, 2023 08:30 AM AMBULATORY - REHAB MEDICIN E [facility] Nov 05, 2023 10:30 [facility] Nov 08, 2023 05:00 PM AMBULATORY - REHAB MEDICIN [facility] Nov 15, 2023 07:45 AM AMBULATORY - SURGERY [facility] Nov 26, 2023 05:00 PM AMBULATORY - REHAB MEDICIN [facility] Dec 20, 2023 11:00 AM AMBULATORY - MEDICINE [facility] Vital Signs: All taken on the encounter date This section contains inpatient and outpatient Vital Signs collected on the date of the Encounter. Date/Time Temperature Pulse Blood Pressure Respiratory Rate SP02 Pain Height Weight Body Mass Index Source Jul 01, 2023 12:34 PM 161/89 mm[Hg] [facility] Jul 01, 2023 12:32 PM 176/96 mm[Hg] [facility] Jul 01, 2023 12:21 PM 98.3 F 75 /min 179/99 mm[Hg] 16 /min 97 % 6 161.6 lb 27 [facility] Social History: Smoking Status (Most current) and Tobacco Use (All prior to encounter date) This section includes the most current, and the historical, smoking and tobacco- related health factors from the [place] facility where the Encounter took place. Current Smoking Status This section includes the most current smoking, or tobacco-related health factor, from the [place] facility where the Encounter took place. Date/Time Current Smoking Status Comment Facil ity Aug 17, 2022 09:15 AM VA-TOBACCO FORMER USER [facility] Tobacco Use History This section includes a history of the smoking, or tobacco-related health factors, that were collected on or before the date of the Encounter. The data comes from the [place] facility where the Encounter took place. Date/Time Smoking Status/Tobacco Use Comment F acility Aug 17, 2022 09:15 AM VA-TOBACCO QUIT 15 YRS OR MORE [facility] Oct 27, 2021 09:00 AM VA-TOBACCO FORMER USER [facility] Oct 27, 2021 09:00 AM VA-TOBACCO QUIT 15 YRS OR MORE [facility] Sep 19, 2020 09:00 AM VA-TOBACCO FORMER USER [facility] Sep 19, 2020 09:00 AM VA-TOBACCO QUIT 15 YRS OR MORE [facility] Dec 20, 2018 10:09 AM VA-TOBACCO FORMER USER [facility] Dec 20, 2018 10:09 AM VA-TOBACCO QUIT 15 YRS OR MORE [facility] Dec 07, 2017 09:12 AM FORMER TOBACCO USER 7Y OR GREATE R [facility] Apr 21, 2017 08:35 AM FORMER TOBACCO USER 7Y OR GREATE R [facility] Apr 28, 2016 08:20 AM FORMER TOBACCO USER 7Y OR GREATE R [facility] January 22, 2015 10:07 AM FORMER TOBACCO USER 7Y OR GREATE R [facility] January 25, 2014 10:11 AM FORMER TOBACCO USER 7Y OR GREATE R [facility] December 30, 2011 08:00 AM FORMER TOBACCO USER 7Y OR GREATE R [facility] January 21, 2011 01:16 PM FORMER TOBACCO USE >1Y <7Y [facility] Nov 27, 2009 08:09 AM FORMER TOBACCO USE >1Y <7Y [facility] Dec 27, 2008 12:32 AM FORMER TOBACCO USE >1Y <7Y [facility] January 03, 2008 12:52 PM FORMER TOBACCO USE >1Y <7Y [facility] January 11, 2007 10:43 AM FORMER TOBACCO USE >1Y <7Y [facility] Advance Directives: All historical and current Section Date Range: From patient's date of to the date document was created. This section includes ALL of a patient's completed or amended [place] Advance and Rescinded Directives. The entries below indicate that a directive exists for the patient, but an actual copy is not included with this document. The data comes from all [place] facilities. Date Advance Directives Provider Source Dec 04, 2009 CLINICAL WARNING KAMARI CUMMINGS [facility] Radiology Reports: +/- 30 days [...] the Encounter. The data comes from all [place] treatment facilities. Date/Time Radiology Report Provider Source Jun 22, 2023 07:[address] (C) CHEST (P): ROSS IGLESIAS [id number] M Exm Date: JUN 22, 2023@07:58 Req Phys: INA MCKENZIE Pat Loc: [facility] PULM EVAL (Req'g Loc) Img Loc: CT IMAGING Service: Unknown (Case [id number] COMPLETE) CT (C) CHEST W/O CONTRAST (CT Detailed) CPT:73283 Reason for Study: f/u 3 month interval, lung fibrosis Clinical History: Per Joint Commission Standards, by signing this diagnostic imaging request the ordering provider confirms they have considered patients age and recent imaging history. Defer to radiologist for final CT protocol. Patient with COPD and fibrotic disease with new O2 requirement but without interval imaging between 2018 and 2022. Now repeat imaging to see if GGO resolve and consider infection vs inflammation List the name and contact number of the responsible provider that can be reached for any questions regarding this exam or notification of critical findings.Nette Thorne Note -If ordering provider is a trainee, enter the name and contact information of the responsible staff adrienne below. If not, type in N/A.Orlando Vance LAST 3: Collection DT Specimen Test Name Result Units Ref Range 04/08/2023 10:26 PLASMA CREATININE 1.3 H mg/dL 0.7 - 1.2 02/19/2023 11:19 PLASMA CREATININE 1.2 mg/dL 0.7 - 1.2 02/09/2023 07:37 PLASMA CREATININE 1.1 mg/dL 0.7 - 1.2 04/08/2023 10:26 PLASMA .CREAT EGFR(CKD-E 57 L Ref: >=60 02/19/2023 11:19 PLASMA .CREAT EGFR(CKD-E 62 Ref: >=60 02/09/2023 07:37 PLASMA .CREAT EGFR(CKD-E 69 Ref: >=60 08/08/2021 07:58 PLASMA ESTIMATED GFR(eGF 49 L Ref: >=60 01/30/2021 10:37 PLASMA ESTIMATED GFR(eGF 49 L Ref: >=60 09/19/2020 08:31 PLASMA ESTIMATED GFR(eGF 46 L Ref: >=60 Allergies: ([place] only) PENICILLIN (May 15, 1994) SIMVASTATIN (Apr 01, 2006) LOBSTER (Jul 12, 2007) SCALLOPS (Jul 12, 2007) LISINOPRIL (Apr 03, 2008) METOPROLOL (Apr 03, 2008) FISH (Dec 04, 2009) CONTRAST MEDIA (Jul 06, 2022) Report Status: Verified Date Reported: JUN 22, 2023 Date Verified: JUN 22, 2023 Systems Integration Advisor E-Sig:/ES/KAY VAZ MD Report: Noncontrast chest CT 06/22/2023 INDICATION: 77-year-old old with COPD and fibrotic lung disease with new O2 requirements. CT 03/01/2023 showed new mixed pulmonary parenchymal disease, uncertain etiology, including: - parenchymal groundglass - intralobular septal and interstitial parenchymal opacities - scattered dense focal consolidations - Parenchymal findings superimposed on progressed subpleural peripheral bullous change Potential differential diagnosis bronchi, findings new from 09/07/2019. Follow-up. TECHNIQUE: Noncontrast. Total dose DLP 309.96 mGy*cm. Comparisons: 03/01/2023, 09/07/2019, 06/22/2019, 06/10/2018, 04/07/2017. Report: Lungs pleural spaces: Significant interval reduction in some areas of pulmonary parenchymal mixed groundglass, interlobular septal, and interstitial opacities, some areas with internal bronchiectasis. Improved regions include: - posterior superior left upper lobe peripheral - bands of opacity along the anterior lateral, posterior lateral, mid lingula and inferior central lingula - Posterior periphery mid left lower lobe Some peripheral subpleural mixed groundglass, interstitial, and interlobular septal opacities have mildly increased, notably the posterior lateral mid and inferior upper lobes (example image 147 on the left, and image 165 on the right, both series 3. Some subpleural areas of similar mixed parenchymal opacity Main relatively unchanged, example posterior mid right lower lobe, image 182 series 3. Interval improvement of some regions suggests resolution of infectious or inflammatory process. Some areas of mildly progressed subpleural abnormality suggest either infectious or inflammatory process, or potentially regions of active/worsening primary parenchymal disease, such as UIP. Given variability and shifting pattern, findings may have more than one etiology. Overall, extent of parenchymal abnormalities is improved. Combination subpleural bullous, and upper lobe predominant moderate to significant centrilobular emphysema appears similar to February 2023, without pneumothorax. Tracheobronchial tree remains clear, with moderate central and lower lobe bronchial wall thickening, with at least mild bronchiectasis extending into the right lower lobe, likely chronic inflammatory. No pleural effusion. Mediastinum: Heart size upper limits of normal. Ascending aorta 4.4 cm, borderline aneurysmal. Standard great vessel branching pattern. Posterior transverse aortic arch 4.3 cm. Main pulmonary artery 3.7 cm, enlarged. Severe calcification of the coronary arteries, which may risk stratify the patient. Small nodularity of the thyroid gland, unchanged. Small mediastinal nodes, reactive. Patulous gas-filled distal esophagus, without definite hernia. Bone soft tissues: Multilevel moderate to significant primarily mid thoracic degenerative disc disease, with mild chronic compression deformities, and mild to moderate kyphosis. Flowing anterior osteophytes of mid to lower thoracic spine, fused. At least moderate degenerative changes of both shoulders. Upper abdomen: Liver: Small low-attenuation hepatic foci (series 4): - 12 x 11 mm, image 270, fluid density cyst Too small to characterize, - 6 mm left liver, image 243 - 3 mm subcapsular left liver, image 237 Gallbladder: Partially imaged, without radiodense stone. Spleen: 9.5 cm, without focal mass. Calcified granulomas. Adrenals: Small bilateral adrenal adenomas. Pancreas: Moderate diffuse fatty replacement. Head incompletely imaged. Superior kidneys: Multiple low-attenuation renal foci on the left, measuring up to 13 mm, fluid density, consistent with cysts. 7 mm 90 Hounsfield unit focus in the lateral superior left kidney, image 299 series 4, which may represent high density cyst, incompletely characterized. No stone or evidence of obstruction. Bowel: Large foodstuffs within stomach. Nodes: No upper abdominal adenopathy. Ascites: None. Impression: 1. Overall improvement in variable mixed pulmonary parenchymal opacities previously progressed from August 2019, superimposed on combination upper lobe predominant subpleural bullous change, and moderate to severe upper lobe centrilobular emphysema. Prior most dense consolidation with associated bronchiectasis in posterior left upper lobe now nearly completely resolved. Other relatively dense bandlike pulmonary prior opacities have also improved or resolved. Findings suggest resolving multifocal infectious or inflammatory process. 2. Additional areas of persistent subpleural mixed groundglass, interstitial, and interlobular septal opacities, mildly progressed posterior lateral upper lobes, relatively stable posterior lower lobes. Given subpleural distribution, findings may relate to intrinsic pulmonary parenchymal disease (progressed from August 2019), such as active forms of UIP. Ongoing inflammatory infectious process also possible. 3. 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 4. Enlarged pulmonary artery consistent with pulmonary arterial hypertension. 5. Severe calcification of the coronary arteries, which may risk stratify the patient. Recommend clinical correlation. 6. Borderline cardiac enlargement. 7. 12 mm hepatic cyst. Additional low-attenuation hepatic foci, too small to characterize, likely not substantially changed, also favored as benign foci such as cysts. 8. Subcentimeter high density focus lateral superior left kidney, which may meet criteria for high density cyst, present to some degree since May 2019, favoring hemorrhagic or proteinaceous cyst. Additional simple left renal cortical cysts. 9. Small bilateral adrenal adenomas. Primary Interpreting Staff: KAY VAZ MD, RADIOLOGIST (Systems Integration Advisor) /RAH VAZ,KAY A [facility] Encounter Notes: All associated encounter notes This section contains the clinical notes associated to the Encounter. Date/Time Encounter Note(s) Provider Source Jul 01, 2023 12:22 PM INTERNAL MEDICINE OUTPATIENT NOTE: LOCAL TITLE: MEDICINE CLINIC NURSING NOTE STANDARD TITLE: INTERNAL MEDICINE OUTPATIENT NOTE DATE OF NOTE: JUL 01, 2023@12:22 ENTRY DATE: JUL 01, 2023@12:22:33 AUTHOR: GURU JOHNSON EXP COSIGNER: URGENCY: STATUS: COMPLETED MEDICINE CLINIC NURSING NOTE Has ADDENDA TYPE OF VISIT: Appointment Check In Type of appointment: In-person appointment REASON FOR VISIT: rtc ALLERGIES: PENICILLIN (May 15, 1994) SIMVASTATIN (Apr 01, 2006) LOBSTER (Jul 12, 2007) SCALLOPS (Jul 12, 2007) LISINOPRIL (Apr 03, 2008) METOPROLOL (Apr 03, 2008) FISH (Dec 04, 2009) CONTRAST MEDIA (Jul 06, 2022) VITAL SIGNS: Blood Pressure: 179/99 (07/01/2023 12:21) Pulse: 75 (07/01/2023 12:21) Respiration: 16 (07/01/2023 12:21) Temperature: 98.3 F [36.8 C] (07/01/2023 12:21) Weight: 161.6 lb [73.30 kg] (07/01/2023 12:21) Height: 65.25 in [165.7 cm] (02/19/2023 09:09) BMI: 26.7 O2 Sat: 97% (07/01/2023 12:21) Pain: 6 (07/01/2023 12:21) BP recheck: 179/96. 161/89 Asymptomatic denies alcazar, dizziness, sob Pt reported having a fall when he took his dog outside on 06/29. Pt reported he fell face first and hit his head, ribs, and his second toe on his right foot. Pt reported that he blacked out. Pt did not seek medical attention PAIN SCREEN: Patient is not having significant pain that they wish to discuss with their provider today. MEDICATION Over the Counter/Herbal Medications: The patient denies taking any outside medications or herbals. Pulmonary Clinic General Appearance: No acute distress Respiratory Assessment Is this a change from your last visit to Pulmonary? No /es/ GURU JOHNSON LPN PRINTER SLOTTER OPERATOR Signed: 07/01/2023 12:33 Receipt Acknowledged By: 07/01/2023 12:45 /TURNER Duckworth, RN, ANM ELECTRIC MOTOR ASSEMBLER AND TESTER NURSE AGILE SCRUM MASTER 3D 07/01/2023 ADDENDUM STATUS: COMPLETED Assessed hypertensive that reports falling and hitting his head a few days ago while letting his little dog outside. Vet reports that he hit his forehead and ribs on the asphalt. PRINTER SLOTTER OPERATOR to update provider to see if there is a need for imaging at this time. Will continue to monitor Vet in clinic. 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 He had been started on supplemental oxygen in the summer 2022 after presenting with oxygen saturations in the 70s. His exercise tolerance was quite limited but he denied other symptoms such as cough or sputum production. He was using Symbicort twice daily and Spiriva. Serologic work-up was normal other than mildly elevated CRP and ESR. Sputum cultures grew Cladosporium and Fusarium, but no AFB. Plan was to have him follow-up with a chest CT and consideration of bronchoscopy and or antifibrotic's. Interval history: His breathing is OK as long as he has his supplemental O2 on. If he does not have O2 on his sats drop to the 60s with exertion. He is not coughing at all. No chest pain (other than rib pain from a recent fall). No weight loss or weight gain. No fevers or chills. There is nothing that he is worried about. 2 days ago he was taking out his dog. He had just [place] out [place] and slipped on the ice. He was more concerned about his dog than himself. He did hit his head and lost conciousness. He has had no headaches, unsteadiness, weakness, dizziness. Pertinent medications: Guaifenesin Albuterol Fluticasone/salmeterol Tiotropium Rivaroxaban Past medical history, surgical history, and social history reviewed in CPRS. Physical Exam: VS reviewed in CPRS Gen - well appearing elderly man CV - RRR no mgr Pulm - crackles both bases. no wheezes Ext - tender right toes. No other signs of trauma or tenderness. Neuro: 5/5 strength in all extremities. Head: No tenderness, no abrasions. PFTs (personally reviewed and interpreted): March 2023: FVC 2 L, FEV1 1.15 L (49%), ratio 0.57. Diffusion capacity 37% predicted. Overall consistent with severe obstruction with severe diffusion restriction. Chest imaging (personally reviewed and interpreted): CT chest 06/22/2023 shows overall improvement in groundglass opacities. He does have fairly extensive subpleural bullous changes and emphysema, the dense consolidation and bronchiectasis in the left upper lobe is almost completely resolved. He does have some persistent subpleural mixed groundglass, interstitial, and interlobular septal opacities that were read as mildly progressive the posterior lateral upper lobes, relatively stable in the posterior lower lobes. Labs (personally reviewed and interpreted): No new labs today. Labs, tests and imaging results listed in pulmonary note were discussed with patient. Assessment and plan: 77 year old man with a history of tobacco use here for follow up of COPD, emphysema, and abnormal imaging. Unclear if he had a resolving infectious process vs has CPFE. No significant progression on imaging or symptoms. Discussed antifibrotics but given limited evidence and unclear diagnosis will hold off for now and repeat PFTs in 6 months. If PFTs worse then we will consider antifibrotics. Regarding his fall, his brief LOC is concerning but it has been 48 hours and he is feeling normal other than some toe and rib pain. He is on AC and I advised ED visit/head CT, but he declines at this time. He lives with his and will not be alone. Total of 40 minutes spent on chart review, with the patient, and documentation today. /johana/ ANTONIO AREVALO MD PACCS STAFF PHYSICIAN Signed: 07/01/2023 13:03 ANTONIO AREVALO [facility]
--- OUTSIDE RECORDS SUMMARY | 2024-02-26 09:14 | XMS_ITS | Encounter Summary ---
Author Name [facility] [place] Organization [place] Address [address] [place] [address] Care Team Providers Care Head Mechanic Name Role Phone EDUARDO PRATT Primary Care [...] PART A Sep 30, 2010 PART A [id number] [phone] Isaac IGLESIAS PATIENT Selected Encounter This section includes the information on record at [place] for the Encounter. Date/Time Encounter Type Encounter Description Reason Pro vider Source IHE Encounter Template Text not used by [place] Advance Directives: All historical and current Section Date Range: From patient's date of to the date document was created. This section includes ALL of a patient's completed or amended [place] Advance and Rescinded Directives. The entries below indicate that a directive exists for the patient, but an actual copy is not included with this document. The data comes from all [place] facilities. Date Advance Directives Provider Source Dec 04, 2009 CLINICAL WARNING KAMARI CUMMINGS [facility]
--- OUTSIDE RECORDS SUMMARY | 2024-02-26 09:14 | XMS_ITS | Encounter Summary ---
Author Name [facility] Organization [facility] [place] Address [address] [place] [address] Care Team Providers Care Clinical Academic Allergist Name Role Phone EDUARDO PRATT Primary Care [...] PART A Sep 30, 2010 PART A [phone] Isaac IGLESIAS PATIENT Selected Encounter This section includes the information on record at [place] for the Encounter. Date/Time Encounter Type Encounter Description Reason Pro vider Source Jun 02, 2023 08:30 AM OFFICE O/P EST MOD 30-39 MIN PSYCHOGERIATRIC - INDIVIDUAL ICD-10-CM F43.12 Post-traumati c stress disorder, chronic GASTON HALEY IH[facility]ma Encounter Template Text not used by [place] Assessments - Encounter Diagnoses This section includes the primary and secondary diagnoses documented for the Encounter. Date/Time Primary/Secondary Diagnosis Diagnosis Name Provider Source Jun 02, 2023 04:53 PM PRIMARY Post-traumatic stress disorder, chronic GASTON HALEY [facility] Jun 02, 2023 04:53 PM SECONDARY Other recurrent depressive disorders GASTON HALEY [facility] Plan of Treatment: Future Appointments (+ 6 months) and Future Tests (+/- 45 days) The Plan of Treatment section includes future care activities for the patient from [facility] This section includes future appointments and future orders which are active, pending or scheduled. Future Appointments This section includes appointments that were scheduled to occur 6 months from the date of the Encounter, up to a maximum of 20 appointments. The data comes from all [facility] Appointment Date/Time Appointment Type Appointme nt Facility Name Jun 08, 2023 08:30 AM AM[place]ORY - [place]ONE [place] [facility] Jun 11, 2023 09:00 [facility] Jun 21, 2023 09:00 AM [facility] Jun 22, 2023 08:15 AM [facility] Jun 28, 2023 08:30 AM [facility] [place] [facility] Jul 01, 2023 12:30 PM [facility] Jul 27, 2023 08:30 PM [facility]UL[facility]IC[facility] Sep 03, 2023 09:00 AM [facility] Sep 07, 2023 07:30 AM [facility] Sep 09, 2023 11:00 AM [facility] - [facility] [place] [facility] Oct 11, 2023 07:00 AM AM[place] [place]ONE [place] [facility] Oct 11, 2023 08:00 AM [facility] [place] [facility] Oct 15, 2023 07:45 AM [facility] [place] [facility] Nov 05, 2023 08:30 AM AMBULATORY - [facility]HAB [facility] Nov 05, 2023 10:30 AM [facility] Nov 08, 2023 05:00 PM AMBULATORY - REHAB MEDICIN [facility] Nov 15, 2023 07:45 AM [facility]ORY - [facility]ERY [place] [facility] Nov 26, 2023 05:00 PM AMBULATORY - REHAB MEDICIN [facility] Social History: Smoking Status (Most current) and Tobacco Use (All prior to encounter date) This section includes the most current, and the historical, smoking and tobacco- related health factors from the [place] facility where the Encounter took place. Current Smoking Status This section includes the most current smoking, or tobacco-related health factor, from the [place] facility where the Encounter took place. Date/Time Current Smoking Status Comment Facil ity Aug 17, 2022 09:15 AM VA-TOBACCO FORMER USER [facility] Tobacco Use History This section includes a history of the smoking, or tobacco-related health factors, that were collected on or before the date of the Encounter. The data comes from the [place] facility where the Encounter took place. Date/Time Smoking Status/Tobacco Use Comment F acility Aug 17, 2022 09:15 AM VA-TOBACCO QUIT 15 YRS OR MORE [facility] Oct 27, 2021 09:00 AM VA-TOBACCO FORMER USER [facility] Oct 27, 2021 09:00 AM VA-TOBACCO QUIT 15 YRS OR MORE [facility] Sep 19, 2020 09:00 AM VA-TOBACCO FORMER USER [facility] Sep 19, 2020 09:00 AM VA-TOBACCO QUIT 15 YRS OR MORE [facility] Dec 20, 2018 10:09 AM VA-TOBACCO FORMER USER [facility] Dec 20, 2018 10:09 AM VA-TOBACCO QUIT 15 YRS OR MORE [facility] Dec 07, 2017 09:12 AM FORMER TOBACCO USER 7Y OR GREATE R [facility] Apr 21, 2017 08:35 AM FORMER TOBACCO USER 7Y OR GREATE R [facility] Apr 28, 2016 08:20 AM FORMER TOBACCO USER 7Y OR GREATE R [facility] January 22, 2015 10:07 AM FORMER TOBACCO USER 7Y OR GREATE R [facility] January 25, 2014 10:11 AM FORMER TOBACCO USER 7Y OR GREATE R [facility] December 30, 2011 08:00 AM FORMER TOBACCO USER 7Y OR GREATE R [facility] January 21, 2011 01:16 PM FORMER TOBACCO USE >1Y <7Y [facility] Nov 27, 2009 08:09 AM FORMER TOBACCO USE >1Y <7Y [facility] Dec 27, 2008 12:32 AM FORMER TOBACCO USE >1Y <7Y [facility] January 03, 2008 12:52 PM FORMER TOBACCO USE >1Y <7Y [facility] January 11, 2007 10:43 AM FORMER TOBACCO USE >1Y <7Y [facility] Advance Directives: All historical and current Section Date Range: From patient's date of to the date document was created. This section includes ALL of a patient's completed or amended [place] Advance and Rescinded Directives. The entries below indicate that a directive exists for the patient, but an actual copy is not included with this document. The data comes from all [place] facilities. Date Advance Directives Provider Source Dec 04, 2009 CLINICAL WARNING [facility]ARI [facility] Radiology Reports: +/- 30 days of [...] the Encounter. The data comes from all [place] treatment facilities. Date/Time Radiology Report Provider Source Jun 22, 2023 07:[address] (C) CHEST (P): ROSS IGLESIAS [id number] -[id number] M Exm Date: JUN 22, 2023@07:58 Req Phys: INA MCKENZIE Pat Loc: [facility] (Req'g Loc) Img Loc: CT IMAGING Service: Unknown (Case [id number] COMPLETE) CT (C) CHEST W/O CONTRAST (CT Detailed) CPT:97815 Reason for Study: f/u 3 month interval, [...] ESTIMATED GFR(eGF 46 L Ref: >=60 Allergies: ([facility]) PENICILLIN (May 15, 1994) SIMVASTATIN (Apr 01, 2006) LOBSTER (Jul 12, 2007) SCALLOPS (Jul 12, 2007) LISINOPRIL (Apr 03, 2008) METOPROLOL (Apr 03, 2008) FISH (Dec 04, 2009) CONTRAST MEDIA (Jul 06, 2022) Report Status: Verified Date Reported: JUN 22, 2023 Date Verified: JUN 22, 2023 Market Risk Specialist E-Sig:/ES/KAY VAZ MD Report: Noncontrast chest CT [...] Primary Interpreting Staff: KAY VAZ MD, RADIOLOGIST (Market Risk Specialist) /KAY MIKE [facility] Encounter Notes: All associated encounter notes This section contains the clinical notes associated to the Encounter. Date/Time Encounter Note(s) Provider Source Jun 02, 2023 09:13 AM PSYCHIATRY E & M NOTE: LOCAL TITLE: PSYCHIATRIC EVALUATION & MANAGEMENT STANDARD TITLE: PSYCHIATRY E & M NOTE DATE OF NOTE: JUN 02, 2023@09:13 ENTRY DATE: JUN 02, 2023@09:13:51 AUTHOR: JANE JOHNSON EXP COSIGNER: URGENCY: STATUS: COMPLETED PSYCHIATRIC EVALUATION & MANAGEMENT Has ADDENDA PSYCHIATRY CLINIC FOLLOW-UP: Total length of session: 30 minutes, with 20 minutes spent in psychotherapy, including psychoeducation. IDENTIFICATION: ROSS IGLESIAS is a 77 y/o [employer] with a past psychiatric history significant for PTSD and unspecified depressive disorder who presents for follow-up. INTERVAL HISTORY: was last seen in here in this November. Interview was done in person this morning. reports his mood has been not so good mostly because of his physical health problems but also states no change of mood from his previous visit. His lung condition has been deteriorated to 60% capacity and his lung could not tolerate heat in this summer which made him more home-bound and he wasn't able to enjoy the summer outside because of that. He states he has been spending time doing crosswords puzzles, word searching puzzles and watching TV. He recently started using oxygen tank when he goes outside and that helped him with breathing. 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 He states he cannot drive without eyepatch but no problem with driving with eye patch. He has been taking care of his stating that his worked in jail and they both don't want her to go to the jail. His daughter has been helping him and his a lot including care of his and cooking. He denied suicidal thought stating there would be no one for my . He also mentioned about his PTSD symptoms. Before long-term, he worked 7 days a week and this helped him with PTSD symptoms. But after long-term, he had too many idle times that sometimes brought him back PTSD symptoms. CURRENT MEDICATIONS: Active Outpatient Medications (excluding Supplies): Outpatient Medications Status ======= 1) ALBUTEROL 90MCG (CFC-F) 200D ORAL INHL INHALE 2 PUFFS ACTIVE (S) BY INHALATION EVERY 4 HOURS NEEDED FOR [...] TAB TAKE ONE TABLET BY MOUTH ACTIVE (S) EVERY DAY 8) ERYTHROMYCIN 0.5% OPH OINT [...] PUFFS BY INHALATION EVERY DAY FOR COPD ALLERGIES: PENICILLIN (May 15, 1994) SIMVASTATIN (Apr 01, 2006) LOBSTER (Jul 12, 2007) SCALLOPS (Jul 12, 2007) LISINOPRIL (Apr 03, 2008) METOPROLOL (Apr 03, 2008) FISH (Dec 04, 2009) CONTRAST MEDIA (Jul 06, 2022) VITALS: Blood Pressure: 136/70 (04/08/2023 08:56) Weight: 165 lb [74.84 kg] (04/08/2023 08:56) BMI: 27.3 MENTAL STATUS EXAM: General: Cooperative, no acute distress. Speech: Regular rate and rhythm, normal volume. Psychomotor: No tics, tremors or adventitious movements. Gait: Walks independently. Mood: Not so good, but no change from the previous visit Affect: Consistent with euthymia. Thought Process: Linear, logical, goal-oriented. Thought Content: Denies suicidal and homicidal ideation. Perceptual disturbances: No hallucinations or delusions. Attention/Concentration: Intact. LABS: LAB RESULTS LAST 48 HRS - NONE FOUND DIAGNOSES: Posttraumatic Stress Disorder Unspecified Depressive Disorder ASSESSMENT: ROSS IGLESIAS is a 77 y/o [employer] with a past psychiatric history significant for PTSD and unspecified depressive disorder who presents for follow-up. His physical problems including lung and eye conditions has been gradually worsening and affected his functioning and mood. He has not been able to go outside and socialize and spending most of his time in his house with his . He lives with his adult daughter and , the latter of whom is older and requires caregiving. His daughter is helping him with caregiving and they don't want his to go to a jail. Reported mood has not been changed and stable from the last visit though he is feeling not so good. Also states that his PTSD symptoms more likely to come back if not keeping himself busy. Will continue his current medication and monitor how his physical health affects his mood. PLAN: Medications: Continue sertraline 150 mg daily. Return to Clinic: [facility] 2023. INFORMED MED CONSENT & COLLABORATIVE DECISION MAKING: We have discussed the risks/ benefits/ side effects of above treatment plan including alternative treatments and no treatment, and answered the questions of . participated in the discussion and agreed to the treatment plan as above. Provided contact information, and crisis information, instructing to call with any interim concerns. SAFETY ASSESSMENT: RISKS: Medical, male, MH dx, 's illness. PROTECTIVE FACTORS: Follows up with MH provider, no guns in home, cares about his / daughter and takes care of his spouse, daughter living with them, cares about his dog, has social support, stable financial/ living situation, future-oriented, help seeking, no hx of SAs or MH hospitalizations. ASSESSMENT: Chronic and acute low risk for safety concerns towards self and low towards others. No imminent risk for safety. /johana/ JANE JOHNSON Resident Signed: 06/02/2023 09:50 06/02/2023 ADDENDUM STATUS: COMPLETED ATTESTATION: This customs entry writer spoke to the patient with the resident, Jane Johnson MD, discussed the case at length and agree with the assessment and plan detailed in this report. /johana/ GASTON HALEY Staff Physician Signed: 06/02/2023 16:53 JANE JOHNSON [facility]
--- OUTSIDE RECORDS SUMMARY | 2024-02-26 09:14 | XMS_ITS | Encounter Summary ---
Author Name [facility] Address [address] [place] [address] Care Team Providers Care Mechanist Name Role Phone MASHAVERÓNICA SantiagoABDELRAHMAN Primary Care [...] PART A Sep 30, 2010 PART A [phone] Isaac IGLESIAS PATIENT Selected Encounter This section includes the information on record at [place] for the Encounter. Date/Time Encounter Type Encounter Description Reason Pro vider Source Sep 01, 2023 02:01 PM Outpatient Encounter SLEEP MEDICINE [facility] Encounter Template Text not used by [place] Plan of Treatment: Future Appointments (+ 6 [...] 20 appointments. The data comes from all [facility]. Appointment Date/Time Appointment Type Appointme nt Facility Name Sep 03, 2023 09:00 AM [facility] Sep 07, 2023 07:30 AM AMBULATORY - SURGERY [facility] Sep 09, 2023 11:00 AM AM[facility] [place] [facility] Oct 11, 2023 07:00 AM [facility] Oct 11, 2023 08:00 AM [facility] Oct 15, 2023 07:45 AM AMBULATORY - SURGERY [facility] Nov 05, 2023 08:30 AM AMBULATORY - REHAB MEDICIN E [facility] Nov 05, 2023 10:30 AM AMBULATORY - NONE [facility] Nov 08, 2023 05:00 PM AMBULATORY - REHAB MEDICIN [facility] Nov 15, 2023 07:45 AM AMBULATORY - SURGERY [facility] Nov 26, 2023 05:00 PM AMBULATORY - REHAB MEDICIN E [facility] Dec 20, 2023 11:00 AM [facility] January 03, 2024 01:00 PM AMBULATORY - REHAB MEDICIN E [facility] January 06, 2024 01:30 PM [facility] January 14, 2024 09:00 AM AMBULATORY - PSYCHIATRY [facility] January 18, 2024 09:00 AM AMBULATORY - REHAB MEDICIN [facility] January 25, 2024 05:10 PM AMBULATORY - REHAB MEDICIN [facility] Feb 24, 2024 09:00 AM AMBULATORY - REHAB MEDICIN [facility] Social History: Smoking Status (Most current) and Tobacco Use (All prior to encounter date) This section includes the most current, and the historical, smoking and tobacco- related health factors from the [place] facility where the Encounter took place. Current Smoking Status This section includes the most current smoking, or tobacco-related health factor, from the [place] facility where the Encounter took place. Date/Time Current Smoking Status Edward alexis Aug 17, 2022 09:15 AM VA-TOBACCO FORMER USER [facility] Tobacco Use History This section includes a history of the smoking, or tobacco-related health factors, that were collected on or before the date of the Encounter. The data comes from the [place] facility where the Encounter took place. Date/Time Smoking Status/Tobacco Use Comment F acility Aug 17, 2022 09:15 AM VA-TOBACCO QUIT 15 YRS OR MORE [facility] Oct 27, 2021 09:00 AM VA-TOBACCO FORMER USER [facility] Oct 27, 2021 09:00 AM VA-TOBACCO QUIT 15 YRS OR MORE [facility] Sep 19, 2020 09:00 AM VA-TOBACCO FORMER USER [facility] Sep 19, 2020 09:00 AM VA-TOBACCO QUIT 15 YRS OR MORE [facility] Dec 20, 2018 10:09 AM VA-TOBACCO FORMER USER [facility] Dec 20, 2018 10:09 AM VA-TOBACCO QUIT 15 YRS OR MORE [facility] Dec 07, 2017 09:12 AM FORMER TOBACCO USER 7Y OR GREATE R [facility] Apr 21, 2017 08:35 AM FORMER TOBACCO USER 7Y OR GREATE R [facility] Apr 28, 2016 08:20 AM FORMER TOBACCO USER 7Y OR GREATE R [facility] January 22, 2015 10:07 AM FORMER TOBACCO USER 7Y OR GREATE R [facility] January 25, 2014 10:11 AM FORMER TOBACCO USER 7Y OR GREATE R [facility] December 30, 2011 08:00 AM FORMER TOBACCO USER 7Y OR GREATE R [facility] January 21, 2011 01:16 PM FORMER TOBACCO USE >1Y <7Y [facility] Nov 27, 2009 08:09 AM FORMER TOBACCO USE >1Y <7Y [facility] Dec 27, 2008 12:32 AM FORMER TOBACCO USE >1Y <7Y [facility] January 03, 2008 12:52 PM FORMER TOBACCO USE >1Y <7Y [facility] January 11, 2007 10:43 AM FORMER TOBACCO USE >1Y <7Y [facility] Advance Directives: All historical and current Section Date Range: From patient's date of to the date document was created. This section includes ALL of a patient's completed or amended [place] Advance and Rescinded Directives. The entries below indicate that a directive exists for the patient, but an actual copy is not included with this document. The data comes from all [place] facilities. Date Advance Directives Provider Source Dec 04, 2009 CLINICAL WARNING KAMARI [facility]UM[facility] Encounter Notes: All associated encounter notes This section contains the clinical notes associated to the Encounter. Date/Time Encounter Note(s) Provider Source Sep 01, 2023 02:03 PM REPORT OF CONTACT: LOCAL TITLE: APPOINTMENT SCHEDULING NOTE STANDARD TITLE: REPORT OF CONTACT DATE OF NOTE: SEP 01, 2023@14:03 ENTRY DATE: SEP 01, 2023@14:04:04 AUTHOR: MARGRET BLANTON EXP COSIGNER: URGENCY: STATUS: COMPLETED Attempted to schedule Cancellation Clinic cancellation Contact attempt made to 1st attempt Telephone 2nd attempt Letter - Sent letter by regular [place] mail to address on file: ROSS IGLESIAS [address] [place], [place] [address] Disposition order request after Aug Left message on voice mail to call back to this number [phone] Other: schedule with Leclaire If calls back, schedule appt for: Activity: 06/21/2023 09:28 New Order entered by KELI SORIANO (PHYSICIAN) Order Text: Return to [facility] on or around ( Sep 19, 2023 ) for a total of 1 appointment(s) /es/ MARGRET BLANTON AMSA Signed: 09/01/2023 14:05 MARGRET BLANTON [facility]
--- OUTSIDE RECORDS SUMMARY | 2024-02-26 09:14 | XMS_ITS | Encounter Summary ---
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 Date/Time Encounter Type Encounter Description Reason Provider Source Jun 21, 2023 09:00 AM OFFICE O/P NEW MOD 45-59 MIN SLEEP MEDICINE ICD-10-CM G47.33 Obstructive sleep apnea (adult) (pediatric) HARLAN NAVARRETE Encounter Template Text not used by MD Assessments - Encounter Diagnoses This section includes the primary and secondary diagnoses documented for the Encounter. Date/Time Primary/Secondary Diagnosis Diagnosis Name Provider Source Jun 21, 2023 09:43 AM PRIMARY Obstructive sleep apnea (adult) (pediatric) OTTONIEL NAVARRETE [facility] Jun 21, 2023 09:43 AM SECONDARY Encounter for immunization CARMEN SEGUNDO [facility] Jun 21, 2023 09:43 AM SECONDARY Sleep related hypoventilation in conditions classd elswhr CHRISTIEJORGEADRIANELASHAWN Zuniga [facility] Plan of Treatment: Future Appointments (+ 6 months) and Future Tests (+/- 45 days) The Plan of Treatment section includes future care activities for the patient [facility] This section includes future appointments and future orders which are active, pending or scheduled. Future Appointments This section includes appointments that were scheduled to occur 6 months from the date of the Encounter, up to a maximum of 20 appointments. The data comes from all MD treatment facilities. Appointment Date/Time Appointment Type Appointme nt Facility Name Jun 22, 2023 08:15 AM AMBULATORY - NONE [facility] Jun 28, 2023 08:30 AM AMBULATORY - SURGERY [facility] Jul 01, 2023 12:30 PM AMBULATORY - MEDICINE [facility] Jul 27, 2023 08:30 PM AMBULATORY - MEDICINE [facility] Sep 03, 2023 09:00 AM AMBULATORY - PSYCHIATRY [facility] Sep 07, 2023 07:30 AM AMBULATORY - SURGERY [facility] Sep 09, 2023 11:00 AM AMBULATORY - SURGERY [facility] Oct 11, 2023 07:00 AM AMBULATORY - NONE [facility] Oct 11, 2023 08:00 AM [facility] Oct 15, 2023 07:45 AM AMBULATORY - SURGERY [facility] Nov 05, 2023 08:30 AM AMBULATORY - REHAB [facility]ICIN [facility] Nov 05, 2023 10:30 AM AMBULATORY - NONE [facility] Nov 08, 2023 05:00 PM AMBULATORY - REHAB [facility]ICIN [facility] Nov 15, 2023 07:45 AM AMBULATORY - SURGERY [facility] Nov 26, 2023 05:00 [facility] Dec 20, 2023 11:00 AM [facility]UL[facility] - MEDICINE [facility] Vital Signs: All taken on the encounter date This section contains inpatient and outpatient Vital Signs collected on the date of the Encounter. Date/Time Temperature Pulse Blood Pressure Respiratory Rate SP02 Pain Height Weight Body Mass Index Source Jun 21, 2023 08:37 AM 71 /min 127/62 mm[Hg] 18 /min 90 % 167.6 lb 28 [facility] Immunizations: All administered on the encounter date This section contains immunizations associated to the Encounter. Immunization Series Date Issued Reaction Comments COVID-19 (PFIZER), MRNA, LNP -S, PF, CHERYL-SUCROSE, 30 MCG/0.3 ML (AGES 12+ YEARS) 1 Jun 21, 2023 INFLUENZA, HIGH-DOSE, QUADRIVALENT Jun 21, 2023 Social History: Smoking Status (Most current) and Tobacco Use (All prior to encounter date) This section includes the most current, and the historical, smoking and tobacco- related health factors from the MD facility where the Encounter took place. Current Smoking Status This section includes the most current smoking, or tobacco-related health factor, from the MD facility where the Encounter took place. Date/Time Current Smoking Status Comment Facil ity Aug 17, 2022 09:15 AM VA-TOBACCO FORMER USER [facility] Tobacco Use History This section includes a history of the smoking, or tobacco-related health factors, that were collected on or before the date of the Encounter. The data comes from the MD facility where the Encounter took place. Date/Time Smoking Status/Tobacco Use Comment F acility Aug 17, 2022 09:15 AM VA-TOBACCO QUIT 15 YRS OR MORE [facility] Oct 27, 2021 09:00 AM VA-TOBACCO FORMER USER [facility] Oct 27, 2021 09:00 AM VA-TOBACCO QUIT 15 YRS OR MORE [facility] Sep 19, 2020 09:00 AM VA-TOBACCO FORMER USER [facility] Sep 19, 2020 09:00 AM VA-TOBACCO QUIT 15 YRS OR MORE [facility] Dec 20, 2018 10:09 AM VA-TOBACCO FORMER USER [facility] Dec 20, 2018 10:09 AM VA-TOBACCO QUIT 15 YRS OR MORE [facility] Dec 07, 2017 09:12 AM FORMER TOBACCO USER 7Y OR GREATE R [facility] Apr 21, 2017 08:35 AM FORMER TOBACCO USER 7Y OR GREATE R [facility] Apr 28, 2016 08:20 AM FORMER TOBACCO USER 7Y OR GREATE R [facility] January 22, 2015 10:07 AM FORMER TOBACCO USER 7Y OR GREATE R [facility] January 25, 2014 10:11 AM FORMER TOBACCO USER 7Y OR GREATE R [facility] December 30, 2011 08:00 AM FORMER TOBACCO USER 7Y OR GREATE R [facility] January 21, 2011 01:16 PM FORMER TOBACCO USE >1Y <7Y [facility] Nov 27, 2009 08:09 AM FORMER TOBACCO USE >1Y <7Y [facility] Dec 27, 2008 12:32 AM FORMER TOBACCO USE >1Y <7Y [facility] January 03, 2008 12:52 PM FORMER TOBACCO USE >1Y <7Y [facility] January 11, 2007 10:43 AM FORMER TOBACCO USE >1Y <7Y [facility] Advance Directives: All historical and current Section Date Range: From patient's date of to the date document was created. This section includes ALL of a patient's completed or amended MD Advance and Rescinded Directives. The entries below indicate that a directive exists for the patient, but an actual copy is not included with this document. The data comes from all MD facilities. Date Advance Directives Provider Source Dec 04, 2009 CLINICAL WARNING KAMARI CUMMINGS [facility] Radiology Reports: +/- 30 days of [...] the Encounter. The data comes from all MD treatment facilities. Date/Time Radiology Report Provider Source Jun 22, 2023 07:[address] (C) CHEST (P): ROSS IGLESIAS [id number] M Exm Date: JUN 22, 2023@07:58 Req Phys: INA MCKENZIE Loc: [facility] PULM EVAL (Req'g Loc) Img Loc: CT IMAGING Service: Unknown (Case [id number] COMPLETE) CT (C) CHEST W/O CONTRAST (CT Detailed) CPT:74947 Reason for Study: f/u 3 month interval, [...] adrienne below. If not, type in N/A.Orlando Hoyostatianasulma LAST 3: Collection DT Specimen Test Name [...] ESTIMATED GFR(eGF 46 L Ref: >=60 Allergies: ([place] only) PENICILLIN (May 15, 1994) SIMVASTATIN (Apr 01, 2006) LOBSTER (Jul 12, 2007) SCALLOPS (Jul 12, 2007) LISINOPRIL (Apr 03, 2008) METOPROLOL (Apr 03, 2008) FISH (Dec 04, 2009) CONTRAST MEDIA (Jul 06, 2022) Report Status: Verified Date Reported: JUN 22, 2023 Date Verified: JUN 22, 2023 Ip/Mosaic Technician E-Sig:/ES/KAY VAZ MD Report: Noncontrast chest CT [...] Primary Interpreting Staff: KAY VAZ MD, RADIOLOGIST (Ip/Mosaic Technician) /KAY MIKE [facility] Encounter Notes: All associated encounter notes This section contains the clinical notes associated to the Encounter. Date/Time Encounter Note(s) Provider Source Jun 21, 2023 10:40 AM IMMUNIZATION NOTE: LOCAL TITLE: INFLUENZA VACCINATION STANDARD TITLE: IMMUNIZATION NOTE DATE OF NOTE: JUN 21, 2023@10:40 ENTRY DATE: JUN 21, 2023@10:40:14 AUTHOR: NICOLETTE SEGUNDO EXP COSIGNER: URGENCY: STATUS: COMPLETED The patient was given the influenza VIS which lists the benefits and side effects of the vaccine and which reviews the risks of not receiving the flu vaccine. The VIS was reviewed with the patient and they were given an opportunity to ask questions. The patient was provided education on how to decrease the risk of influenza infection including social distancing and use of good hand hygiene. The patient denied any prior severe reaction to the flu vaccine or its components. The patient gave verbal consent to receive the vaccine. Influenza, High Dose, Quadrivalent (Fluzone - syringe) Administered: INFLUENZA, HIGH-DOSE, QUADRIVALENT Date Administered: Jun 21, 2023 09:00 Final Inspector And Tester: SANOFI PASTEUR Lot: [id number] Exp Date: Feb 27, 2024 [facility]: [id number] Admin Route/Site: INTRAMUSCULAR/RIGHT DELTOID Dosage: 0.7mL Vaccine Information Statement(s): INFLUENZA(FLU) VACC(INACTIVATED OR RECOMBINANT)VIS Apr 04, 2021 (VIETNAMESE) Order By: Policy Administered By: Nicolette Segundo /johana/ NICOLETTE SEGUNDO, RN, BSN PULMONARY/LCS SENIOR MANAGING DIRECTOR Signed: 06/21/2023 10:41 NICOLETTE SEGUNDO [facility] Jun 21, 2023 10:40 AM NURSING IMMUNIZATION NOTE: LOCAL TITLE: VAS OUTPATIENT COVID VACCINE ADMINISTRATION STANDARD TITLE: NURSING IMMUNIZATION NOTE DATE OF NOTE: JUN 21, 2023@10:40 ENTRY DATE: JUN 21, 2023@10:40:58 AUTHOR: NICOLETTE SEGUNDO EXP COSIGNER: URGENCY: STATUS: COMPLETED Pfizer Monovalent (Comirnaty) Vaccine information reviewed with the patient. The patient denied any prior severe reaction to this vaccine or its components or a severe allergic reaction such as anaphylaxis to any vaccine or to any injectable therapy. The patient gave verbal consent to receive vaccine. Administered: COVID-19 (PFIZER), MRNA, LNP-S, PF, CHERYL-SUCROSE, 30 MCG/0.3 ML (AGES 12+ YEARS) Date Administered: Jun 21, 2023 09:00 Series: Series 1 Final Inspector And Tester: [employer] Lot: [id number] Exp Date: Sep 29, 2024 [facility]: [id number] Admin Route/Site: INTRAMUSCULAR/RIGHT DELTOID Dosage: 0.3mL Order By: Harlan Navarrete Administered By: Nicolette Segundo Vaccine administered without complications. The patient was advised to remain in the facility for 15 minutes post vaccination. /johana/ NICOLETTE SEGUNDO RN, BSN PULMONARY/LCS SENIOR MANAGING DIRECTOR Signed: 06/21/2023 10:41 NICOLETTE SEGUNDO [facility] Jun 21, 2023 09:25 AM SLEEP MEDICINE CONSULT: LOCAL TITLE: SLEEP MEDICINE CONSULT STANDARD TITLE: SLEEP MEDICINE CONSULT DATE OF NOTE: JUN 21, 2023@09:25 ENTRY DATE: JUN 21, 2023@09:25:41 AUTHOR: HARLAN NAVARRETE EXP COSIGNER: URGENCY: STATUS: COMPLETED History of Present Illness: Rogerio has underlying advanced COPD with severe obstructive physiology, chronic hypoxia (on 4 LPM O2) who is here to discuss about his sleep. He lives with his and helps with most house chores including her care. He has a known diagnosis of advanced COPD and for the past 2 months has been using 4 LPM O2 including during his sleep. He mentioned that he would fall asleep while watching the television around 1800 hours on his couch. He wakes up around 0100 hours and will move to his bed where he will wake almost every hour, sometimes to micturate while others tossing and turning. At least twice a week he would wake up gasping for air. He usually wakes up around 0600 hours without an alarm and despite sleeping up to 10 to 11 hours, he does not feel well rested. [place] Sleepiness Scale Using the scale: 0=Never 1=Slight chance of dozing 2=Moderate chance of dozing 3=High chance of dozing, how often are you likely to doze off in the following situations? 1. Sitting and reading 3 2. Watching TV 3 3. Sitting inactive in a public place 0 4. As a passenger in a car for an hour without a break 1 5. Lying down to rest in the afternoon as circumstances permit 0 6. Sitting and talking to someone 0 7. Sitting quietly after lunch without alcohol 3 8. In a car while stopped for a few minutes in traffic 0 TOTAL: 10 Review of Systems: The confirms or denies the following symptoms as noted: Non-restorative sleep: Confirms Snoring: Denies Witnessed apneas: Denies Gasping: Confirms Nocturia: Confirms Morning headaches: Denies Difficulty initiating sleep: Denies Difficulty maintaining sleep: Confirms Sleep Walking: Denies Somniloquy: Denies Cataplexy: Denies Sleep paralysis: Denies Hypnagogic hallucinations: Denies Hypnopompic hallucinations: Denies Difficulty concentrating: Denies Memory loss: Denies Dry mouth: Confirms Nasal congestion: Denies Nocturnal limb movements: Denies Weight gain: Denies Weight loss: Denies Bruxism: Denies Mood disorder: Denies Mood swings: Denies Sore throat: Denies Past Medical History Active problems - Computerized Problem List is the source for the followin. Osteoarthritis (SNOMED CT 643797106) 2. Depression (SNOMED CT 63004180) 3. Posttraumatic stress disorder (SNOMED CT 39863743) 4. 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 Malignant tumor of [...] - Quit 2003, 15 pack year hx Medications: Active Outpatient Medications (including Supplies): Outpatient Medications Status 1) ALBUTEROL 90MCG (CFC-F) [...] 2 ACTIVE DROPS IN OPERATIVE EYE EVERY 2 HOURS NEEDED FOR DRY EYES 6) CHOLECALCIF 25MCG (D3-1,000UNIT) TAB TAKE ONE [...] PUFFS BY INHALATION EVERY DAY FOR COPD Allergies: PENICILLIN (May 15, 1994) SIMVASTATIN (Apr 01, 2006) LOBSTER (Jul 12, 2007) SCALLOPS (Jul 12, 2007) LISINOPRIL (Apr 03, 2008) METOPROLOL (Apr 03, 2008) FISH (Dec 04, 2009) CONTRAST MEDIA (Jul 06, 2022) Physical Exam: Vitals: BP: 127/62 (06/21/2023 08:37) P: 71 (06/21/2023 08:37) R: 18 (06/21/2023 08:37) T: 97 F [36.1 C] (04/08/2023 08:56) WT: 167.6 lb [76.02 kg] (06/21/2023 08:37) Pain: 5 (02/19/2023 09:09) O2 Sat: General Appearance - Well nourished, NAD HEENT - Mallampati score:3, PEERL, EOMI, Macroglossia Neck Circumference 16 , No LAD or thyromegaly Cardiovascular RRR, Normal S1S2. No murmur, gallops or rubs Pulmonary Vesicular breathing, mildly prolonged expiration B/L no wheeze. Abdomen - + bowel sounds, soft, non-tender/non-distended, no organomegaly Extremities No cyanosis, clubbing or edema Neuro Alert and Oriented x3, strength 5/5 throughout, coordination and gait within normal limits Skin warm and dry, no rashes or lesions Labs PROCEDURE SUMMARY CODE: Machine Resulted DATE/TIME PERFORMED: APR 08, 2023@08:18:2 Procedure: MIN_PFT PFT Measurement ti08:23AM Spirometry Ref LLN Pre ZScore% Ref FVC L 3.06 2.26 2.00 -2.19 65.4 FEV 1 L 2.33 1.63 1.15 -2.66 49.3 FEV1/FVC% 77 63 57 -2.29 PEF L/s 6.97 4.98 3.37 -2.98 48.4 06/21/23 09:36 CP ECHO TTE OUTPT ROSS IGLESIAS [id number] : Sep (77) NOT INPATIENT without contrast. The left ventricular systolic function is normal. The visually estimated ejection fraction is 55-60%. The right ventricular systolic function is normal. The inferior vena cava is normal in size, and collapses normally with respiration. There is mild pulmonary hypertension. Estimated RVSP is 45 mmHg. Impression: 77 years old male [place] with advanced COPD, chronic hypoxic and likely hypercapnic respiratory failure, secondary pulmonary hypertension and known CAD. 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 Due to this complex nature of his co-morbidities, he will require a formal in-Lab Type I Polysomnogram with objective evaluation of Hypoventilation as well. - Advanced COPD and chronic hypoxia on 4 LPM of supplemental O2. - Sleep disordered breathing: Concern for overlap syndrome, sleep related hypoxia and hypoventilation. - Secondaray pulmonary hypertension due to above mentioned reasons. Recommendation: - Type I Sleep study with transcutaneous CO2 monitoring. Split-Night protocol. - Use 5 mg of Zolpidem on the night of the study to improve sleep efficiency on the night of the study. - Consider pulmonary rehablitation program to help with physical deconditioning. Return to clinic for follow up evaluation in 3 months. Polysomnogram diagnostic and therapeutic patient education completed. The was provided with detailed education regarding the conduction of a diagnostic Type 1 sleep study. All potential therapeutic options including positive airway pressure therapy were discussed. All questions were answers to the patients satisfaction. The was informed that the study will include audio and video recording. [place] gave verbal consent to proceed with the sleep study. /johana/ HARLAN NAVARRETE MD Staff: Pulmonary, Critical Care & Sleep Medicine Signed: 06/21/2023 09:43 HARLAN NAVARRETE [facility] Jun 21, 2023 08:40 AM INTERNAL MEDICINE OUTPATIENT NOTE: LOCAL TITLE: MEDICINE CLINIC NURSING NOTE STANDARD TITLE: INTERNAL MEDICINE OUTPATIENT NOTE DATE OF NOTE: JUN 21, 2023@08:40 ENTRY DATE: JUN 21, 2023@08:40:33 AUTHOR: RICHARD WEINER EXP COSIGNER: URGENCY: STATUS: COMPLETED TYPE OF VISIT: Appointment Check In Type of appointment: In-person appointment REASON FOR VISIT: scheduled visit ALLERGIES: PENICILLIN (May 15, 1994) SIMVASTATIN (Apr 01, 2006) LOBSTER (Jul 12, 2007) SCALLOPS (Jul 12, 2007) LISINOPRIL (Apr 03, 2008) METOPROLOL (Apr 03, 2008) FISH (Dec 04, 2009) CONTRAST MEDIA (Jul 06, 2022) VITAL SIGNS: Blood Pressure: 127/62 (06/21/2023 08:37) Pulse: 71 (06/21/2023 08:37) Respiration: 18 (06/21/2023 08:37) Temperature: 97 F [36.1 C] (04/08/2023 08:56) Weight: 167.6 lb [76.02 kg] (06/21/2023 08:37) Height: 65.25 in [165.7 cm] (02/19/2023 09:09) BMI: 27.7 O2 Sat: 90% (06/21/2023 08:37) Pain: 5 (02/19/2023 09:09) PAIN SCREEN: Patient is not having significant pain that they wish to discuss with their provider today. MEDICATION Over the Counter/Herbal Medications: The patient denies taking any outside medications or herbals. Sleep Clinic C-SSRS Screening [place] Suicide Severity Rating Scale (C-SSRS) screener 1. Over the past month, have you wished you were or wished you could go to sleep and not wake up? No 2. Over the past month, have you had any actual thoughts of killing yourself? No 3. Over the past month, have you been thinking about how you might do this? Response not required due to responses to other questions. 4. Over the past month, have you had these thoughts and had some intention of acting on them? Response not required due to responses to other questions. 5. Over the past month, have you started to work out or worked out the details of how to kill yourself? Response not required due to responses to other questions. 6. If yes, at any time in the past month did you intend to carry out this plan? Response not required due to responses to other questions. 7. In your lifetime, have you ever done anything, started to do anything, or prepared to do anything to end your life (for example, collected pills, obtained a gun, gave away valuables, went to the roof but didn't jump)? Yes 8. If YES, was this within the past 3 months? [place] /johana/ RICHARD WEINER LPN LPN Signed: 06/21/2023 08:43 RICHARD WEINER [facility]
--- OUTSIDE RECORDS SUMMARY | 2024-02-26 09:15 | XMS_ITS | Encounter Summary ---
Author Name [facility] [place] Organization [facility] [place] Address [address] [place] [id number] Care Team Providers Care Business Administration Teacher Name Role Phone EDUARDO PAUL Primary Care Provider Unav ailable Insurance Providers: [...] PART A Sep 30, 2010 PART A [id number] Isaac IGLESIAS PATIENT Selected Encounter This section includes the information on record at [place] for the Encounter. Date/Time Encounter Type Encounter Description Reason Provider Source Oct 11, 2023 08:00 AM OFFICE O/P EST LOW 20 MIN PRIMARY CARE/MEDICINE ICD-10-CM R25.1 Tremor, unspecified TONEY PAUL Zulma Encounter Template Text not used by [place] Assessments - Encounter Diagnoses This section includes the primary and secondary diagnoses documented for the Encounter. Date/Time Primary/Secondary Diagnosis Diagnosis Name Provider Source Oct 11, 2023 12:48 PM PRIMARY Tremor, unspecified [facility] Oct 11, 2023 12:48 PM SECONDARY Benign prostatic hyperplasia with lower urinary tract symp [facility] Oct 11, 2023 12:48 PM SECONDARY Chronic obstructive pulmonary disease, unspecified [facility] Oct 11, 2023 12:48 PM SECONDARY Contact with and exposure to other hazardous substances [facility] Oct 11, 2023 12:48 PM SECONDARY Essential (primary) hypertension [facility] Oct 11, 2023 12:48 PM SECONDARY Hyperlipidemia, unspecified [facility] Oct 11, 2023 12:48 PM SECONDARY Other obstructive and reflux uropathy [facility] Oct 11, 2023 12:48 PM SECONDARY Personal history of nicotine dependence [facility] Oct 11, 2023 12:48 PM SECONDARY Polyneuropathy, unspecified [facility] Oct 11, 2023 12:48 PM SECONDARY Primary osteoarthritis, unspecified site [facility] Oct 11, 2023 12:48 PM SECONDARY Pulmonary hypertension, unspecified [facility] Oct 11, 2023 12:48 PM SECONDARY Unspecified hearing loss, unspecified ear [facility] Plan of Treatment: Future Appointments (+ 6 months) and Future Tests (+/- 45 days) The Plan of Treatment section includes future care activities for the patient from all [facility]. This section includes future appointments and future orders which are active, pending or scheduled. Future Appointments This section includes appointments that were scheduled to occur 6 months from the date of the Encounter, up to a maximum of 20 appointments. The data comes from all [facility]. Appointment Date/Time Appointment Type Appointme nt Facility Name Oct 15, 2023 07:45 AM AMBULATORY - SURGERY [facility] Nov 05, 2023 08:30 AM AMBULATORY - REHAB [facility] Nov 05, 2023 10:30 AM AMBULATORY - NONE [facility] Nov 08, 2023 05:00 PM AMBULATORY - REHAB MEDICIN E [facility] Nov 15, 2023 07:45 AM AMBULATORY - SURGERY [facility] Nov 26, 2023 05:00 PM AMBULATORY - REHAB MEDICIN E [facility] Dec 20, 2023 11:00 AM [facility] January 03, 2024 01:00 PM AMBULATORY - REHAB MEDICIN [facility] January 06, 2024 01:30 PM [facility] January 14, 2024 09:00 AM [facility] January 18, 2024 09:00 AM AMBULATORY - REHAB MEDICIN E [facility] January 25, 2024 05:10 PM AMBULATORY - REHAB MEDICIN E [facility] Feb 24, 2024 09:00 AM AMBULATORY - REHAB MEDICIN [facility] Apr 10, 2024 01:00 PM AMBULATORY - REHAB [facility]ICIN [facility] Active, Pending, and Scheduled Orders This section includes a listing of several types of active, pending, and scheduled orders, including clinic medications orders, diagnostic test orders, procedure orders and consult orders; where the start date of the order is 45 days before the date of the Encounter or 45 days after the date of theEncounter. The data comes from all [facility] facilities. Test Date/Time Test Type Test Details Facility Name Nov 10, 2023 12:00 AM Laboratory - Chemi stry Order BASIC METABOLIC PANEL+MG PLASMA SP ONCE [facility] Lab Results: +/- 30 days of the encounter This section includes the Chemistry and Hematology Lab Results on record with [place] for the patient. Radiology Reports and Pathology Reports are provided separately, in subsequent sections. Lab Results This section contains the Chemistry/Hematology Results that were resulted 30 days before or 30 daysafter the date of the Encounter. Date/Time Source Result Type Result - Unit Interpretation Reference Range Comment Nov 05, 2023 10:21 AM [facility] HEMOGLOBIN A1C Specimen Type: BLOOD Comment: Values obtained from A1C measurements can vary. For typical A1C assays, a reported value of 7.0 could actually be between 6.7 and 7.3 if measured by a reference method. A reported value of 9.0 could actually be between 8.7 and 9.3. Ref: http://www.ng sp.org/CAPdat a.asp Ordering Provider: SOHA EUBANKS Report Released Date/Time: Nov 05, 2023 10:04 AM Reporting Lab: [facility] [id number] Performing Lab: [facility] [id number] HEMOGLOBIN A1C 5.5 4.0-6.0 Nov 05, 2023 10:21 AM [facility] ELP/IMMFIX,SERUM PANEL Specimen Type: SERUM No comment entered. Ordering Provider: SOHA EUBANKS Report Released Date/Time: Nov 05, 2023 10:03 AM Reporting Lab: [facility] [id number] Performing Lab: [facility] [id number] PROTEIN,TOTAL 8.0 g/dL 6.0-8.3 .ALBUMIN FRACTION 4.22 g/dL 3.66-4.78 .ALPHA 1 FRACTION 0.41 g/dL H 0.14-0.38 .ALPHA 2 FRACTION 0.81 g/dL 0.50-0.90 .BETA 1 FRACTION 0.52 g/dL 0.33-0.55 .BETA 2 FRACTION 0.44 g/dL 0.20-0.52 .GAMMA FRACTION 1.61 g/dL 0.58-1.72 .TOTAL PROTEIN 8.0 g/dL 6.0-8.3 .INTERPRETATION NO MONOCLONALS DETECTED Oct 11, 2023 06:46 AM [facility] B 12 Specimen Type: SERUM No comment entered. Ordering Provider: YIN PAUL Report Released Date/Time: Feb 19, 2023 10:06 AM Reporting Lab: [facility] [id number] Performing Lab: [facility] [id number] B 12 899 pg/mL H 213-816 Oct 11, 2023 06:46 AM [facility] LIPID PANEL,NON-FASTING Specimen Type: PLASMA No comment entered. Ordering Provider: YIN PAUL Report Released Date/Time: Feb 19, 2023 10:06 AM Reporting Lab: [facility] [phone] Performing Lab: [facility] [address] CHOLESTEROL 160 mg/dL <199 .HDL 76 mg/dL >40 LDL CALCULATION 67 mg/dL <99 VLDL CALCULATION 17 mg/dL <29 NON HDL CHOLESTEROL 84 mg/dL <129 TRIG(NON FASTING) 84 mg/dL <149 Oct 11, 2023 06:46 AM [facility] TSH W/REFLEX TO FREE T4 Specimen Type: PLASMA No comment entered. Ordering Provider: YIN PAUL Report Released Date/Time: Feb 19, 2023 10:06 AM Reporting Lab: [facility] [phone] Performing Lab: [facility] [phone] TSH 1.81 u[IU]/mL 0.35-4.94 Oct 11, 2023 06:46 AM [facility] VIT D 25-OH,TOTAL Specimen Type: SERUM No comment entered. Ordering Provider: YIN PAUL Report Released Date/Time: Feb 19, 2023 10:09 AM Reporting Lab: [facility] [phone] Performing Lab: [facility] [phone] VIT D 25-OH,TOTAL 44 ng/mL 12-50 Oct 11, 2023 06:46 AM [facility] CBC Specimen Type: BLOOD No comment entered. Ordering Provider: YIN PAUL Report Released Date/Time: Feb 19, 2023 10:06 AM Reporting Lab: [facility] [phone] Performing Lab: [facility] [phone] WBC 5.19 10*3/uL 4.0-11.0 RBC 4.89 10*6/uL 4.6-6.2 HGB 14.8 g/dL 13.5-17.9 HCT 46.3 41-54 MCV 94.7 fL 80-100 MCH 30.3 pg 27-33 MCHC 32.0 g/dL 32.0-37.5 PLT 159 10*3/uL 150-400 MPV 10.1 fL 7.4-10.4 RDW 16.7 H 11.5-14.5 Oct 11, 2023 06:46 AM [facility] COMPREHENSIVE METABOLIC PANEL+MG Specimen Type: PLASMA No comment entered. Ordering Provider: YIN PAUL Report Released Date/Time: Feb 19, 2023 10:06 AM Reporting Lab: [facility] [phone] Performing Lab: [facility] [address] [facility] [phone] CREATININE 1.2 mg/dL 0.7-1.2 UREA NITROGEN 17 mg/dL 8-26 GLUCOSE 102 mg/dL H 70-100 SODIUM 139 mmol/L 136-145 POTASSIUM 4.8 mmol/L 3.5-5.1 CHLORIDE 99 mmol/L 98-107 CO2 28 mmol/L 22-29 CALCIUM 10.3 mg/dL H 8.4-10.2 PROTEIN,TOTAL 8.7 g/dL H 6.0-8.3 ALBUMIN 4.5 g/dL 3.5-5.2 BILIRUBIN, TOTAL 1.1 mg/dL 0.2-1.2 MAGNESIUM 2.0 mg/dL 1.6-2.6 ANION GAP 12 mmol/L 5-15 ALKALINE PHOSPHATASE 94 U/L 40-150 ALT/SGPT 17 U/L <55 AST/SGOT 29 U/L <34 .CREAT EGFR(CKD-EPI) 62 >60 Vital Signs: All taken on the encounter date This section contains inpatient and outpatient Vital Signs collected on the date of the Encounter. Date/Time Temperature Pulse Blood Pressure Respiratory Rate SP02 Pain Height Weight Body Mass Index Source Oct 11, 2023 07:42 AM 98 80 157/87 17 97 0 65.25 169 28 [facility] Social History: Smoking Status (Most current) and Tobacco Use (All prior to encounter date) This section includes the most current, and the historical, smoking and tobacco- related health factors from the [place] facility where the Encounter took place. Current Smoking Status This section includes the most current smoking, or tobacco-related health factor, from the [place] facility where the Encounter took place. Date/Time Current Smoking Status Comment Anuja alexis Oct 11, 2023 08:00 AM VA-TOBACCO FORMER USER [facility] Tobacco Use History This section includes a history of the smoking, or tobacco-related health factors, that were collected on or before the date of the Encounter. The data comes from the [place] facility where the Encounter took place. Date/Time Smoking Status/Tobacco Use Comment F camacho Oct 11, 2023 08:00 AM VA-TOBACCO QUIT 15 YRS OR MORE [facility] Aug 17, 2022 09:15 AM VA-TOBACCO FORMER USER [facility] Aug 17, 2022 09:15 AM [place] 15 YRS OR MORE [facility] [...] ALL of a patient's completed or amended [place] Advance and Rescinded Directives. The entries below indicate that a directive exists for the patient, but an actual copy is not included with this document. The data comes from all [place] facilities. Date Advance Directives Provider Source Dec 04, 2009 CLINICAL WARNING KAMARI CUMMINGS [facility] Encounter Notes: All associated encounter notes This section contains the clinical notes associated to the Encounter. Date/Time Encounter Note(s) Provider Source Oct 11, 2023 12:38 PM INTERNAL MEDICINE NOTE: LOCAL TITLE: MEDICINE CLINIC NOTE STANDARD TITLE: INTERNAL MEDICINE NOTE DATE OF NOTE: OCT 11, 2023@12:38 ENTRY DATE: OCT 11, 2023@12:38:34 AUTHOR: J LUIS PAUL EXP COSIGNER: URGENCY: STATUS: COMPLETED Nurse's Notes Reviewed. Chief Complaint: f/u COPD, Tremor, hearing, BP HPI: Home blood pressures have been running high on the hydrochlorothiazide 12.5 mg p.o. daily, apparently taking at night for unclear reasons. Has been increasingly bothered with upper extremity tremulousness that are somewhat debilitating and interfering with daily tasks. Wants neurology evaluation, concerned about parkinsonism. No smoking. Occasional light alcohol. Ongoing dyspnea but improved on maximal MDI regimen, not smoking. Ongoingly bothersome nasal congestion. Went to [facility] and was found to be hard of hearing, wants [facility] audiology follow-up. Small lesion on left hand. Comprehensive review of systems was otherwise negative. Past medical history/Active Problems: Active Problems: Active problems - Computerized Problem List is the source for the followin. Osteoarthritis (SNOMED CT 307383692) 2. Depression (SNOMED CT 24135141) 3. Posttraumatic stress disorder (SNOMED CT 08764185) 4. 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 Malignant tumor of [...] - Quit 2003, 15 pack year hx 21. Hearing loss 22. Tremor Tobacco/ETOH Use: No tobacco use Alcohol Use: Does drink though not concerning for abuse. Review of Systems: Feels well, no weight loss, good appetite. No Chest Pain. No orthopnea, PND, or peripheral edema. No abdominal pain, N/V, or change in bowel habits. No diarrhea or constipation. No Bleeding. No urinary hesitancy or frequency. Physical Exam: VS: Temp: 98 F [36.7 C] (10/11/2023 07:42) BP: 157/87 (10/11/2023 07:42) Pulse:80 (10/11/2023 07:42) Resp: 17 (10/11/2023 07:42) Weight: 169 lb [76.66 kg] (10/11/2023 07:42) Pain: 0 (10/11/2023 07:42) O2 Sat: 97% (10/11/2023 07:42) BMI: 28.0 NAD WDWN Ambulatory Not visibly dyspneic or coughing Overweight Conversive, pleasant Significant upper extremity tremulousness, bilateral Left hand, roughened patch, dorsal hand Cardiac: RRR with normal S1 and S2; without murmur, gallop, rub. Chest/Lungs: Bilaterally clear, Clear to auscultation Extremities: No edema. Rechecked blood pressure 154/88 Lab Data: Last 48 hours: B 12: 899 H VITAMIN D,TOTAL: 44 WBC: 5.19 RBC: 4.89 HGB: 14.8 HCT: 46.3 MCV: 94.7 MCH: 30.3 MCHC: 32.0 RDW: 16.7 H PLT: 159 MPV: 10.1 GLUCOSE: 102 H UREA NITROGEN: 17 CREATININE: 1.2 SODIUM: 139 POTASSIUM: 4.8 CHLORIDE: 99 CO2: 28 CALCIUM: 10.3 H CHOLESTEROL: 160 PROTEIN,TOTAL: 8.7 H ALBUMIN: 4.5 BILIRUBIN,TOTAL: 1.1 MAGNESIUM: 2.0 HDL: 76 TSH: 1.81 ANION GAP: 12 LDL CHOL: 67 VLDL CHOL: 17 ALKALINE PHOSPHATASE(37C): 94 SGOT(37C): 29 SGPT(37C): 17 NON HDL CHOLESTEROL: 84 TRIG(NON FASTING): 84 CREATININE EGFR (CKD-EPI): 62 Patient was informed of all the above labs during this visit. Assessment/Plan: 1. COPD: On maximal regimen, has upcoming pulmonary follow-up, as needed oxygen, not smoking 2. Hypertension: Double hydrochlorothiazide to 25 mg p.o. daily and f/u 1 month's time with labs, goal less than 150/90, preferably less than 140/90 if tolerated. 3. B12 deficiency: Slightly overtreated, decrease to 500 mcg p.o. daily 4. Tremulousness: More likely essential tremor but request neurology consult to evaluate for early parkinsonism, consult placed. 5. Nasal congestion: Flonase 6. Hand lesion: Frozen next 3 cycles, liquid nitrogen, observation 7. [place]: Audiology follow-up Plan: Return to Clinic in 1 year with labs PACT RN Clinic blood pressure follow-up in 1 months time, with labs Labs today Call as needed with problems Medications reconciled Patient Education of Treatment Plan: Patient indicates readiness to learn, verbalizes understanding, agreement and satisfaction with the treatment plan. Denies further questions. Education on New Medication: Patient indicated readiness to learn and has been instructed on action, dose, frequency and side effects of the following medication More than 50% of this 30 min appt was spent counseling/coordinating care for the medical problems outlined above. Medication Reconciliation: Education Evaluations *Was medication education provided for NEW medications or CHANGES to medications? (including medication name, dose, route, reason for use, and potential side effects). Yes. Verbal education was provided to patient/caregiver and patient/caregiver verbalized understanding. Additional Comment: double HCTZ to 25 mg/day TERATOGENIC MED & CONTRACEPTION REVIEW (Optional)... MEDICATION RECONCILIATION List Given: An updated medication list was provided to the patient/caregiver. Review Done: The medication list shown below was verified for accuracy and it includes all pending medications/active medications/all medications or discontinued within the last 90 days/all remote medications and non-[place] medications. If a given category (i.e. remote meds) is not shown, that means that a patient doesn't have a medication(s) in that category. Allergies listed below were also reviewed/updated for accuracy. Allergies/ADR from [facility] may not display in CPRS. Use JLV MRT5 - Allergies/ADRs FACILITY ALLERGY/ADR -------- No Remote Allergy/ADR Data available for this patient [facility] CONTRAST MEDIA [facility] FISH [facility] LISINOPRIL [facility] LOBSTER [facility] METOPROLOL [facility] PENICILLIN [facility] SCALLOPS [facility] SIMVASTATIN Active and Recently Outpatient Medications (including Supplies): Issue Date Status Last Fill Active Outpatient Medications Refills Expiration 1) ALBUTEROL 90MCG (CFC-F) 200D ORAL INHL ACTIVE (S) Issu:10-11-23 Qty: 2 for 50 days Sig: INHALE 2 Refills: 5 Last:12-06-23 PUFFS BY INHALATION EVERY 4 HOURS Expr:10-11-24 NEEDED FOR SHORTNESS OF BREATH 2) ATORVASTATIN CALCIUM 40MG TAB Qty: 90 ACTIVE (S) Issu:10-11-23 for 90 days Sig: TAKE ONE TABLET BY Refills: 3 Last:01-14-24 MOUTH EVERY DAY FOR CHOLESTEROL Expr:10-11-24 3) BRIMONIDINE TARTRATE 0.2% OPH SOLN Qty: ACTIVE Issu:03-18-23 10 for 30 days Sig: INSTILL 1 DROP IN Refills: 5 Last:09-08-23 BOTH EYES TWICE A DAY FOR GLAUCOMA Expr:03-18-24 SPACE 10 MINUTES APART FROM OTHER EYE DROPS 4) CALCIUM CARBONATE 650MG (CA 260MG) TAB ACTIVE (S) Issu:10-11-23 Qty: 90 for 90 days Sig: TAKE ONE Refills: 3 Last:11-17-23 TABLET BY MOUTH EVERY DAY Expr:10-11-24 5) CARBOXYMETHYLCELLULOSE NA 0.25% OPH SOLN ACTIVE Issu:06-11-23 Qty: 30 for 90 days Sig: INSTILL 2 Refills: 0 Last:09-03-23 DROPS IN OPERATIVE EYE EVERY 2 HOURS Expr:06-11-24 NEEDED FOR DRY EYES 6) CHOLECALCIF 25MCG (D3-1,000UNIT) TAB ACTIVE (S) Issu:10-11-23 Qty: 100 for 90 days Sig: TAKE ONE Refills: 3 Last:12-11-23 TABLET BY MOUTH EVERY DAY Expr:10-11-24 7) CYANOCOBALAMIN 500MCG TAB Qty: 100 for ACTIVE (S) Issu:10-11-23 90 days Sig: TAKE ONE TABLET BY MOUTH Refills: 3 Last:10-11-23 EVERY DAY FOR B12 SUPPLEMENT Expr:10-11-24 8) DICLOFENAC NA 1% TOP GEL Qty: 100 for ACTIVE Issu:09-09-23 30 days Sig: APPLY 2 GRAMS TOPICALLY Refills: 3 Last:09-09-23 THREE TIMES A DAY NEEDED FOOT PAIN Expr:09-09-24 9) FLUTICAS 500/SALMETEROL 50 INHL DISK 60 ACTIVE (S) Issu:10-11-23 Qty: 3 for 90 days Sig: INHALE 1 PUFF Refills: 3 Last:11-06-23 BY INHALATION TWICE A DAY FOR COPD Expr:10-11-24 *RINSE MOUTH AFTER EACH USE* 10) FLUTICASONE PROP 50MCG 120D NASAL INHL ACTIVE (S) Issu:10-11-23 Qty: 3 for 90 days Sig: SPRAY 2 Refills: 3 Last:10-11-23 SPRAYS IN EACH NOSTRIL EVERY DAY FOR Expr:10-11-24 CONGESTION 11) GABAPENTIN 300MG CAP Qty: 360 for 90 ACTIVE (S) Issu:10-11-23 days Sig: TAKE TWO CAPSULES BY MOUTH Refills: 3 Last:11-06-23 TWICE A DAY FOR NERVE PAIN IN HANDS Expr:10-11-24 12) GUAIFENESIN 200MG TAB Qty: 100 for 30 ACTIVE Issu:05-20-23 days Sig: TAKE ONE TABLET BY MOUTH Refills: 0 Last:07-13-23 THREE TIMES A DAY NEEDED FOR PHLEGM Expr:05-20-24 13) HYDROCHLOROTHIAZIDE 25MG TAB Qty: 90 ACTIVE (S) Issu:10-11-23 for 90 days Sig: TAKE ONE TABLET BY Refills: 3 Last:10-11-23 MOUTH EVERY DAY FOR BLOOD PRESSURE Expr:10-11-24 NEW STRENGTH 14) RIVAROXABAN 20MG TAB Qty: 90 for 90 ACTIVE (S) Issu:02-10-23 days Sig: TAKE ONE TABLET BY MOUTH Refills: 1 Last:11-12-23 EVERY DAY WITH THE LARGEST MEAL OF THE Expr:02-11-24 DAY TO TREAT AND/OR PREVENT BLOOD CLOTS 15) SERTRALINE HCL 100MG TAB Qty: 135 for ACTIVE (S) Issu:09-04-23 90 days Sig: TAKE ONE AND ONE-HALF Refills: 3 Last:10-28-23 TABLETS BY MOUTH EVERY DAY Expr:09-04-24 16) TIOTROPIUM 2.5MCG/ACTUAT 60D ORAL INHL ACTIVE (S) Issu:10-11-23 Qty: 3 for 90 days Sig: INHALE TWO Refills: 3 Last:11-06-23 PUFFS BY INHALATION EVERY DAY FOR COPD Expr:10-11-24 Issue Date Status Last Fill Inactive Outpatient Medications Refills Expiration 1) ALBUTEROL 90MCG (CFC-F) 200D ORAL INHL DISCONTINUED Issu:02-19-23 Qty: 2 for 50 days Sig: INHALE 2 Refills: 0 Last:10-17-23 PUFFS BY INHALATION EVERY 4 HOURS Expr:02-20-24 NEEDED FOR SHORTNESS OF BREATH 2) ATORVASTATIN CALCIUM 40MG TAB Qty: 90 DISCONTINUED Issu:02-19-23 for 90 days Sig: TAKE ONE TABLET BY Refills: 1 Last:10-16-23 MOUTH EVERY DAY FOR CHOLESTEROL Expr:02-20-24 3) ATORVASTATIN CALCIUM 80MG TAB Qty: 45 DISCONTINUED Issu:11-08-22 for 90 days Sig: TAKE ONE-HALF TABLET (EDIT) Last:11-10-22 BY MOUTH EVERY DAY FOR CHOLESTEROL Refills: 3 Expr:11-09-23 4) CALCIUM CARBONATE 650MG (CA 260MG) TAB DISCONTINUED Issu:03-04-23 Qty: 90 for 90 days Sig: TAKE ONE Refills: 2 Last:08-19-23 TABLET BY MOUTH EVERY DAY Expr:03-04-24 5) CARBOXYMETHYLCELLULOSE NA 0.25% OPH SOLN DISCONTINUED Issu:02-25-23 Qty: 30 for 14 days Sig: INSTILL 2 Refills: 0 Last:05-20-23 DROPS IN OPERATIVE EYE EVERY HOUR Expr:02-26-24 NEEDED FOR DRYNESS AND IRRITATION 6) CARBOXYMETHYLCELLULOSE NA 0.25% OPH SOLN DISCONTINUED Issu:01-08-23 Qty: 30 for 14 days Sig: INSTILL 2 (EDIT) Last:02-09-23 DROPS IN OPERATIVE EYE EVERY HOUR Refills: 0 Expr:01-09-24 NEEDED FOR DRYNESS AND IRRITATION 7) CHOLECALCIF 25MCG (D3-1,000UNIT) TAB DISCONTINUED Issu:02-19-23 Qty: 100 for 90 days Sig: TAKE ONE Refills: 1 Last:09-12-23 TABLET BY MOUTH EVERY DAY Expr:02-20-24 8) CYANOCOBALAMIN 1000MCG TAB Qty: 100 for DISCONTINUED Issu:02-19-23 90 days Sig: TAKE ONE TABLET BY MOUTH (EDIT) Last:10-09-23 EVERY DAY Refills: 1 Expr:02-20-24 9) CYANOCOBALAMIN 1000MCG TAB Qty: 100 for DISCONTINUED Issu:08-12-22 90 days Sig: TAKE ONE TABLET BY MOUTH Refills: 2 Last:01-22-23 EVERY DAY Expr:08-13-23 10) ERYTHROMYCIN 0.5% OPH OINT Qty: 4 for Issu:07-06-22 14 days Sig: APPLY A THIN LAYER TO Refills: 0 Last:12-24-22 INCISION(S) TO OPERATIVE EYE FOUR Expr:07-07-23 TIMES A DAY 11) FLUTICAS 250/SALMETEROL 50 INHL DISK 60 DISCONTINUED Issu:10-08-22 Qty: 3 for 90 days Sig: INHALE 1 PUFF (EDIT) Last:12-28-22 BY INHALATION TWICE A DAY *RINSE MOUTH Refills: 3 Expr:10-09-23 AFTER EACH USE* 12) FLUTICAS 500/SALMETEROL 50 INHL DISK 60 DISCONTINUED Issu:02-19-23 Qty: 3 for 90 days Sig: INHALE 1 PUFF Refills: 1 Last:08-08-23 BY INHALATION TWICE A DAY FOR COPD Expr:02-20-24 *RINSE MOUTH AFTER EACH USE* 13) GABAPENTIN 300MG CAP Qty: 360 for 90 DISCONTINUED Issu:01-08-23 days Sig: TAKE TWO CAPSULES BY MOUTH Refills: 1 Last:08-08-23 TWICE A DAY FOR NERVE PAIN IN HANDS Expr:01-09-24 14) GUAIFENESIN 200MG TAB Qty: 100 for 30 DISCONTINUED Issu:02-19-23 days Sig: TAKE ONE TABLET BY MOUTH Refills: 0 Last:04-10-23 THREE TIMES A DAY NEEDED FOR PHLEGM Expr:02-20-24 15) HYDROCHLOROTHIAZIDE 12.5MG TAB Qty: 90 DISCONTINUED Issu:02-19-23 for 90 days Sig: TAKE ONE TABLET BY (EDIT) Last:08-08-23 MOUTH EVERY DAY FOR BLOOD PRESSURE Refills: 1 Expr:02-20-24 16) IPRATROPIUM BR 0.03% NASAL SPRAY Qty: DISCONTINUED Issu:02-09-23 30 for 90 days Sig: SPRAY 2 SPRAYS IN Refills: 1 Last:07-31-23 EACH NOSTRIL TWICE A DAY FOR ALLERGIES Expr:02-10-24 17) SERTRALINE HCL 100MG TAB Qty: 135 for DISCONTINUED Issu:12-27-22 90 days Sig: TAKE ONE AND ONE-HALF Refills: 1 Last:07-30-23 TABLETS BY MOUTH EVERY DAY Expr:12-28-23 18) TIOTROPIUM 2.5MCG/ACTUAT 60D ORAL INHL DISCONTINUED Issu:02-19-23 Qty: 3 for 90 days Sig: INHALE TWO Refills: 1 Last:08-08-23 PUFFS BY INHALATION EVERY DAY FOR COPD Expr:02-20-24 19) ZOLPIDEM TARTRATE 5MG TAB Qty: 1 for 1 Issu:06-29-23 days Sig: TAKE ONE TABLET BY MOUTH Refills: 0 Last:06-29-23 ONCE BRING TO SLEEP LAB FOR SLEEP Expr:07-29-23 STUDY PROCEDURE. 20) ZOLPIDEM TARTRATE 5MG TAB Qty: 1 for 1 DISCONTINUED Issu:06-21-23 days Sig: TAKE ONE TABLET BY MOUTH Refills: 0 Last:06-21-23 ONCE FOR SLEEP BRING TO SLEEP LAB FOR Expr:07-21-23 SLEEP STUDY PROCEDURE. 36 Total Medications Toxic Exposure Screening Follow-Up: Exposure Concern(s): 10/11/2023 Agent [place] - Toxic Exposure Concern 08/17/2022 Doesnt Know - Toxic Exposure Concern Follow-up Question(s): 10/11/2023 No Questions - Toxic Exposure Concern 08/17/2022 Benefits/Claims Questions - Toxic Exposure Concern Health/Medical Questions - Toxic Exposure Concern [place]/caregiver has no health or medical concerns related to their concern of environmental exposure. The following connections were provided to the [place]/caregiver: [employer] Administration (VBA) for Benefits/claims: [place] [employer]ization (VSO) https://www.macvso.org/find-a-c vso.html HTN Assess for Elevated BP>=140/90: The patient's medication regimen was adjusted to improve blood pressure control. Comment: doubled HCTZ /es/ oTney Paul APRN, COMPUTER SALESPERSON RETAIL Family Nurse Practitioner Signed: 10/11/2023 12:50 [facility] Oct 11, 2023 07:43 AM INTERNAL MEDICINE OUTPATIENT NOTE: LOCAL TITLE: MEDICINE CLINIC NURSING NOTE STANDARD TITLE: INTERNAL MEDICINE OUTPATIENT NOTE DATE OF NOTE: OCT 11, 2023@07:43 ENTRY DATE: OCT 11, 2023@07:43:22 AUTHOR: JESSY WUIGNER: URGENCY: STATUS: COMPLETED TYPE OF VISIT: Appointment Check In Type of appointment: In-person appointment REASON FOR VISIT: Semi-annual ALLERGIES: PENICILLIN (May 15, 1994) SIMVASTATIN (Apr 01, 2006) LOBSTER (Jul 12, 2007) SCALLOPS (Jul 12, 2007) LISINOPRIL (Apr 03, 2008) METOPROLOL (Apr 03, 2008) FISH (Dec 04, 2009) CONTRAST MEDIA (Jul 06, 2022) VITAL SIGNS: Blood Pressure: 157/87 (10/11/2023 07:42)BP recheck: 164/90, asymptomatic. PCP notified. Pulse: 80 (10/11/2023 07:42) Respiration: 17 (10/11/2023 07:42) Temperature: 98 F [36.7 C] (10/11/2023 07:42) Weight: 169 lb [76.66 kg] (10/11/2023 07:42) Height: 65.25 in [165.7 cm] (10/11/2023 07:42) BMI: 28.0 O2 Sat: 97% (10/11/2023 07:42) Pain: 0 (10/11/2023 07:42) PAIN SCREEN: Patient is not having significant pain that they wish to discuss with their provider today. 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 Printed information was offered and provided if desired. No questions at this time /caregiver was informed of local points of contact. Contact information for local resources: - Veterans Benefits for claims submission: Have the call or have them visit the following web address for online scheduling: [email or web address] - [place] Healthcare Enrollment: -VEREUBEN ([id number]) - Find a Brazing Machine Operator Automatic (VSO): Have the call [phone] or look up their VSO at: [email or web address].org/find-[email or web address]-c [email or web address].html - [facility] Navigators: Laura Urias, [facility] [phone] [email or web address] Toxic Exposure Screening Follow-Up reminder is needed. Name of person notified: PCP Nursing Annual Screening: Fall History Screen During the past 12 months, have you had any falls? Patient reports one fall with injury requiring treatment in the past 12 months. MEDICATIONS: Patient is on one of the following medication classes: Antihypertensives, Antidepressants, Antipsychotics, Diuretics, or Controlled substance medication used for pain. Script Talk Screen Are you able to read your prescription bottles with your glasses, magnifiers or other aids? Yes or patient not taking any prescriptions. Skin Screen Patient reports any current pressure ulcers, a history of pressure ulcers, or a wound from a medical claims examiner or Patient is bed-confined or a wheelchair-user or Patient requires assistance to transfer/change position No, Skin Screen is Negative Home Abuse/Violence Screen Is your home free of abuse and violence? Yes MOVE! Program Screen Body Mass Index (BMI)= 28.0 [place]: Collection DT Specimen Test Name Result Units Ref Range 11/17/2021 08:54 BLOOD HEMOGLOBIN A1C 5.5 % 4.0 - 6.0 [place] Hgb A1C: No data available [place] Hgb A1C: No data available Point of Care Hgb A1C: POC HGB A1C____ Outpatient Nutrition Screen Body Mass Index (BMI)= 28.0 [place]: Collection DT Specimen Test Name Result Units Ref Range 11/17/2021 08:54 BLOOD HEMOGLOBIN A1C 5.5 % 4.0 - 6.0 [place] Hgb A1C: No data available [place] Hgb A1C: No data available Point of Care Hgb A1C: POC HGB A1C____ Is patient's BMI less than 18.5? No Does patient have swallowing, coughing, or chewing problems affecting oral intake? No Has patient experienced unplanned weight loss or gain greater than 10 pounds over the last 2 months? No Is patient's Hgb A1C (Glycosylated Hemoglobin) greater than 9.5? Information not available Is patient receiving Total Parenteral Nutrition (TPN) or Tube Feedings? No Patient Health Education Screen BARRIERS/SPECIAL NEEDS: No barriers identified PREFERRED STYLE OF LEARNING: No preference stated Client Assistive Service (JOSE) Screen Does the patient require assistance with outpatient visit? No Homelessness/Food Insecurity Screen: In the past 2 months, have you been living in stable housing that you own, rent, or stay in as part of a household? Yes - Living in stable housing. Are you worried or concerned that in the next 2 months you may NOT have stable housing that you own, rent, or stay in as part of a household? No - Not worried about housing near future The [place] reports the following: Within the past 12 months, you worried whether your food would run out before you got money to buy more. Never true Within the past 12 months, the food you bought just didn't last and you didn't have money to get more. Never true Food Insecurity Resources Tobacco Use Screening: The patient is a former tobacco user. The patient quit fifteen or more years ago. /johana/ JESSY WU LPN, LPN Signed: 10/11/2023 07:46 JESSY WU [facility]
--- OUTSIDE RECORDS SUMMARY | 2024-02-26 09:15 | XMS_ITS | Encounter Summary ---
Author Name [facility] [place] Organization [facility] [place] Address [address] [place] [address] Care Team Providers Care Front End Software Developer Name Role Phone EDUARDO PRATT Primary Care [...] PART A Sep 30, 2010 PART A [id number] Isaac IGLESIAS PATIENT Selected Encounter This section includes the information on record at [place] for the Encounter. Date/Time Encounter Type Encounter Description Reason Pro vider Source Sep 03, 2023 09:00 AM OFFICE O/P EST MOD 30 MIN PSYCHOGERIATRIC - INDIVIDUAL ICD-10-CM F43.12 Post-traumati c stress disorder, chronic GASTON HALEY IHZulma Encounter Template Text not used by [place] Assessments - Encounter Diagnoses This section includes the primary and secondary diagnoses documented for the Encounter. Date/Time Primary/Secondary Diagnosis Diagnosis Name Provider Source Sep 04, 2023 07:49 PM PRIMARY Post-traumatic stress disorder, chronic GASTON HALEY [facility] Sep 04, 2023 07:49 PM SECONDARY Other recurrent depressive disorders GASTON HALEY [facility] Plan of Treatment: Future Appointments (+ 6 months) and Future Tests (+/- 45 days) The Plan of Treatment section includes future care activities for the patient [facility] [place] [facility] This section includes future appointments and future orders which are active, pending or scheduled. Future Appointments This section includes appointments that were scheduled to occur 6 months from the date of the Encounter, up to a maximum of 20 appointments. The data comes from all [facility]. Appointment Date/Time Appointment Type Appointme nt Facility Name Sep 07, 2023 07:30 AM AMBULATORY - SURGERY [facility] Sep 09, 2023 11:00 AM AMBULATORY - SURGERY [facility] Oct 11, 2023 07:00 AM AMBULATORY - NONE [facility] Oct 11, 2023 08:00 AM AMBULATORY - MEDICINE [facility] Oct 15, 2023 07:45 AM AMBULATORY - SURGERY [facility] Nov 05, 2023 08:30 AM AMBULATORY - REHAB [facility] Nov 05, 2023 10:30 AM AMBULATORY - NONE [facility] Nov 08, 2023 05:00 PM AMBULATORY - REHAB [facility]IC[facility] Nov 15, 2023 07:45 AM AMBULATORY - SURGERY [facility] Nov 26, 2023 05:00 PM AMBULATORY - REHAB MEDICIN [facility] Dec 20, 2023 11:00 AM AMBULATORY - MEDICINE [facility] January 03, 2024 01:00 PM AMBULATORY - REHAB [facility]ICIN [facility] January 06, 2024 01:30 PM AMBULATORY - MEDICINE [facility] January 14, 2024 09:00 AM AMBULATORY - PSYCHIATRY [facility] January 18, 2024 09:00 AM AMBULATORY - REHAB [facility]IC[facility] January 25, 2024 05:10 PM AMBULATORY - REHAB [facility]ICIN [facility] Feb 24, 2024 09:00 AM AMBULATORY - REHAB [facility]IC[facility] Social History: Smoking Status (Most current) and Tobacco Use (All prior to encounter date) This section includes the most current, and the historical, smoking and tobacco- related health factors from the [place] facility where the Encounter took place. Current Smoking Status This section includes the most current smoking, or tobacco-related health factor, from the [place] facility where the Encounter took place. Date/Time Current Smoking Status Comment Facil ity Aug 17, 2022 09:15 AM VA-TOBACCO QUIT 15 YRS OR MORE [facility] Tobacco Use History This section includes a history of the smoking, or tobacco-related health factors, that were collected on or before the date of the Encounter. The data comes from the [place] facility where the Encounter took place. Date/Time [...] ALL of a patient's completed or amended [place] Advance and Rescinded Directives. The entries below indicate that a directive exists for the patient, but an actual copy is not included with this document. The data comes from all [place] facilities. Date Advance Directives Provider Source Dec 04, 2009 CLINICAL WARNING ZOILAKAMARI D SHELBIE [facility] Encounter Notes: All associated encounter notes This section contains the clinical notes associated to the Encounter. Date/Time Encounter Note(s) Provider Source Sep 03, 2023 06:11 PM PSYCHIATRY E & M NOTE: LOCAL TITLE: PSYCHIATRIC EVALUATION & MANAGEMENT STANDARD TITLE: PSYCHIATRY E & M NOTE DATE OF NOTE: SEP 03, 2023@18:11 ENTRY DATE: SEP 03, 2023@18:11:08 AUTHOR: GASTON HALEY EXP COSIGNER: URGENCY: STATUS: COMPLETED PSYCHIATRY CLINIC FOLLOW-UP: Total length of session: 30 minutes, with 20 minutes spent in psychotherapy, including psychoeducation. IDENTIFICATION: ROSS IGLESIAS is a 77 y/o [employer] with a past psychiatric history significant for PTSD and unspecified depressive disorder who presents for follow-up. INTERVAL HISTORY: Met with Mr. Iglesias in clinic [id number] this morning. Endorses his primary recent stressor has been dealing with complications from right sided cataract surgery which required outside care at [place] - states he is now healing from this and the issue is less prominent in his concerns. Elaborates that underlying mood has been fair/ manageable and denies markedly depressed moods, anxious acuity, AVH or SI/HI. Does reflect for part of the visit on topics pertaining to his service in [place] - provided supportive/ reflective listening and perspective taking as he shared these recollections/ thoughts. Endorsed that his current medication is helpful and well tolerated - agreed to make no changes today. CURRENT MEDICATIONS: Active Outpatient Medications (excluding Supplies): Outpatient Medications Status ========= 1) ALBUTEROL 90MCG (CFC-F) 200D ORAL INHL [...] 650MG (CA 260MG) TAB TAKE ONE ACTIVE TABLET BY MOUTH EVERY DAY 5) CARBOXYMETHYLCELLULOSE NA 0.25% OPH SOLN INSTILL 2 ACTIVE DROPS IN OPERATIVE EYE EVERY 2 HOURS NEEDED FOR DRY EYES 6) CHOLECALCIF 25MCG (D3-1,000UNIT) TAB TAKE ONE TABLET ACTIVE BY MOUTH EVERY DAY 7) CYANOCOBALAMIN 1000MCG TAB TAKE ONE TABLET BY MOUTH ACTIVE (S) EVERY DAY 8) FLUTICAS 500/SALMETEROL 50 INHL DISK 60 INHALE 1 PUFF ACTIVE BY INHALATION TWICE A DAY FOR COPD *RINSE MOUTH AFTER EACH USE* 9) GABAPENTIN 300MG CAP TAKE TWO CAPSULES BY MOUTH TWICE ACTIVE A DAY FOR NERVE PAIN IN HANDS 10) GUAIFENESIN 200MG TAB TAKE ONE TABLET BY MOUTH THREE ACTIVE TIMES A DAY NEEDED FOR PHLEGM 11) HYDROCHLOROTHIAZIDE 12.5MG TAB TAKE ONE TABLET BY ACTIVE MOUTH EVERY DAY FOR BLOOD PRESSURE 12) IPRATROPIUM BR 0.03% NASAL SPRAY SPRAY 2 SPRAYS IN ACTIVE (S) EACH NOSTRIL TWICE A DAY FOR ALLERGIES 13) RIVAROXABAN 20MG TAB TAKE ONE TABLET BY MOUTH EVERY ACTIVE DAY WITH THE LARGEST MEAL OF THE DAY TO TREAT AND/OR PREVENT BLOOD CLOTS 14) SERTRALINE HCL 100MG TAB TAKE ONE AND ONE-HALF ACTIVE (S) TABLETS BY MOUTH EVERY DAY 15) TIOTROPIUM 2.5MCG/ACTUAT 60D ORAL INHL INHALE TWO ACTIVE PUFFS BY INHALATION EVERY DAY FOR COPD ALLERGIES: PENICILLIN (May 15, 1994) SIMVASTATIN (Apr 01, 2006) LOBSTER (Jul 12, 2007) SCALLOPS (Jul 12, 2007) LISINOPRIL (Apr 03, 2008) METOPROLOL (Apr 03, 2008) FISH (Dec 04, 2009) CONTRAST MEDIA (Jul 06, 2022) VITALS: Blood Pressure: 161/89 (07/01/2023 12:34) Weight: 161.6 lb [73.30 kg] (07/01/2023 12:21) BMI: 26.7 MENTAL STATUS EXAM: General: Cooperative, no acute distress. Speech: Regular rate and rhythm, normal volume. Psychomotor: No tics, tremors or adventitious movements. Gait: Walks independently. Mood: Fair/ stable. Affect: Consistent with euthymia. Thought Process: Linear, logical, goal-oriented. Thought Content: Denies suicidal and homicidal ideation. Perceptual disturbances: No hallucinations or delusions. Attention/Concentration: Intact. DIAGNOSES: Posttraumatic Stress Disorder Unspecified Depressive Disorder ASSESSMENT: ROSS IGLESIAS is a 77 y/o [employer] with a past psychiatric history significant for PTSD and unspecified depressive disorder who presents for follow-up. Lives with his adult daughter and , the latter of whom is older and requires caregiving - endorses strong sense of purpose in being able to care for at home vs. her needing to transition to a long-term setting. Today he endorses that interim mood/ trauma symptoms have been overall stable - agreed to maintain his current regimen without adjustment. No additional recommendations, no acute safety concerns - treatment planning as below. PLAN: Medications: Continue sertraline 150 mg daily. Return to Clinic: Three months or sooner PRN. INFORMED MED CONSENT & COLLABORATIVE DECISION MAKING: We have discussed the risks/ benefits/ side effects of above treatment plan including alternative treatments and no treatment, and answered the questions of . participated in the discussion and agreed to the treatment plan as above. Provided contact information, and crisis information, instructing [place] to call with any interim concerns. SAFETY [...] others. No imminent risk for safety. /johana/ GASTON HALEY Staff Physician Signed: 09/04/2023 19:49 GASTON HALEY [facility]
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
--- OUTSIDE RECORDS SUMMARY | 2024-02-26 09:16 | XMS_ITS | Encounter Summary ---
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 Date/Time Encounter Type Encounter Description Reason Provider Source Dec 20, 2023 11:00 AM OFFICE O/P EST HI 40 MIN SLEEP MEDICINE ICD-10-CM G47.33 Obstructive sleep apnea (adult) (pediatric) SHELBIE EDWARDS Encounter Template Text not used by [place] Assessments - Encounter Diagnoses This section includes the primary and secondary diagnoses documented for the Encounter. Date/Time Primary/Secondary Diagnosis Diagnosis Name Provider Source Dec 20, 2023 12:12 PM PRIMARY Obstructive sleep apnea (adult) (pediatric) SHELBIE EDWARDS [facility] Dec 20, 2023 12:12 PM SECONDARY Chronic obstructive pulmonary disease, unspecified SHELBIE EDWARDS [facility] Dec 20, 2023 12:12 PM SECONDARY Pulmonary hypertension, unspecified SHELBIE EDWARDS [facility] Plan of Treatment: Future Appointments (+ 6 months) and Future Tests (+/- 45 days) The Plan of Treatment section includes future care activities for the patient from [facility] [place] [facility] This section includes future appointments and future orders which are active, pending or scheduled. Future Appointments This section includes appointments that were scheduled to occur 6 months from the date of the Encounter, up to a maximum of 20 appointments. The data comes from all [facility]. Appointment Date/Time Appointment Type Appointme nt Facility Name January 03, 2024 01:00 PM AMBULATORY - [facility] January 06, 2024 01:30 PM AMBULATORY - MEDICINE [facility] January 14, 2024 09:00 AM AMBULATORY - PSYCHIATRY [facility] January 18, 2024 09:00 AM AMBULATORY - RE[facility]AB [facility] January 25, 2024 05:10 PM AMBULATORY - REHAB [facility] Feb 24, 2024 09:00 AM AMBULATORY - REHAB [facility] Apr 10, 2024 01:00 PM [facility] May 31, 2024 08:30 AM AMBULATORY - PSYCHIATRY [facility] Active, Pending, and Scheduled Orders This section includes a listing of several types of active, pending, and scheduled orders, including clinic medications orders, diagnostic test orders, procedure orders and consult orders; where the start date of the order is 45 days before the date of the Encounter or 45 days after the date of theEncounter. The data comes from all [facility]. Test Date/Time Test Type Test Details Facility Name Nov 10, 2023 12:00 AM Laboratory - Chemi stry Order BASIC METABOLIC PANEL+MG PLASMA SP ONCE [facility] Vital Signs: All taken on the encounter date This section contains inpatient and outpatient Vital Signs collected on the date of the Encounter. Date/Time Temperature Pulse Blood Pressure Respiratory Rate SP02 Pain Height Weight Body Mass Index Source Dec 20, 2023 10:53 AM 98 77 160/72 18 91 0 165.9 27 ANTON TEJEDA [facility] Social History: Smoking Status (Most [...] Dec 04, 2009 CLINICAL WARNING KAMARI [facility] Radiology Reports: +/- 30 days of the [...] treatment facilities. Date/Time Radiology Report Provider Source January 06, 2024 02:40 PM CHEST 2 VIEWS PA A ND LAT: ROSS IGLESIAS [id number] M Exm Date: JANUARY 06, 2024@14:40 Req Phys: ANTONIO AREVALO Pat Loc: [facility] PULJovi AREVALO (Req'g Loc) Img Loc: MAIN X-RAY Service: [place] [address] (Case [id number] COMPLETE) CHEST 2 VIEWS PA AND LAT (RAD Detailed) CPT:58532 Reason for Study: pneumonia evaluation Clinical History: [place] IS NOT under investigation for COVID-19 or is COVID-19 negative pneumonia evaluation Responsible provider name and phone number to notify for critical findings if other than user placing the order and pager listed below: User placing orders pager: [phone] LAST CREATININE 1.2 (10/11/23) Report Status: Verified Date Reported: JANUARY 07, 2024 Date Verified: JANUARY 07, 2024 Land Surveyor Manager E-Sig: Report: 2 View Chest x-ray Clinical history: No additional clinical history. Comparison:02/19/2023. Findings: No pulmonary edema. No focal consolidations. Stable interstitial opacities. The cardiac and mediastinal silhouettes are stable. No pleural effusions. Impression: No acute cardiopulmonary disease. READING PHYSICIAN: Daniel Ram M.D. -[phone] 01/07/2024 13:57 PDT [facility] National Teleradiology Program [phone] (For Medical Practitioner Use Only) Attention Patients / Veterans: If you have questions or concerns about these test results, please contact your ordering provider or primary care team. Primary Interpreting Staff: RADIOLOGY,OUTSIDE SERVICE, Staff Physician / RADIOLOGY,OUTSIDE SERVICE [facility] Encounter Notes: All associated encounter notes This section contains the clinical notes associated to the Encounter. Date/Time Encounter Note(s) Provider Source Dec 20, 2023 10:56 AM INTERNAL MEDICINE OUTPATIENT NOTE: LOCAL TITLE: MEDICINE CLINIC NURSING NOTE STANDARD TITLE: INTERNAL MEDICINE OUTPATIENT NOTE DATE OF NOTE: DEC 20, 2023@10:56 ENTRY DATE: DEC 20, 2023@10:56:22 AUTHOR: AMARI TRIANA COSIGNER: URGENCY: STATUS: COMPLETED TYPE OF VISIT: Appointment Check In Type of appointment: In-person appointment REASON FOR VISIT: sleep visit ALLERGIES: PENICILLIN (May 15, 1994) SIMVASTATIN (Apr 01, 2006) LOBSTER (Jul 12, 2007) SCALLOPS (Jul 12, 2007) LISINOPRIL (Apr 03, 2008) METOPROLOL (Apr 03, 2008) FISH (Dec 04, 2009) CONTRAST MEDIA (Jul 06, 2022) ZOLPIDEM (Dec 20, 2023) VITAL SIGNS: Blood Pressure: 160/72 (12/20/2023 10:53) Pulse: 77 (12/20/2023 10:53) Respiration: 18 (12/20/2023 10:53) Temperature: 98 F [36.7 C] (12/20/2023 10:53) Weight: 165.9 lb [75.25 kg] (12/20/2023 10:53) Height: 65.25 in [165.7 cm] (10/11/2023 07:42) BMI: 27.5 O2 Sat: 91% (12/20/2023 10:53) Pain: 0 (12/20/2023 10:53) PAIN SCREEN: Patient is not having significant pain that they wish to discuss with their provider today. MEDICATION Over the Counter/Herbal Medications: The patient denies taking any outside medications or herbals. /johana/ AMARI TRIANA LPN LICENSED PRACTICAL NURSE Signed: 12/20/2023 10:57 AMARI TRIANA [facility] Dec 20, 2023 09:20 AM SLEEP MEDICINE NOTE: LOCAL TITLE: SLEEP MEDICINE NOTE STANDARD TITLE: SLEEP MEDICINE NOTE DATE OF NOTE: DEC 20, 2023@09:20 ENTRY DATE: DEC 17, 2023@08:51:19 AUTHOR: ANTHONY EDWARDS COSIGNER: URGENCY: STATUS: COMPLETED [facility] return appointment Chief Complaint: avtar HPI: ROSS IGLESIAS 78 MALE who is here for a follow up appointment concerning AVTAR This patient underwent a polysomnogram in June 2023. He is here for his results and neck steps. He got Ambien during the night of his study and for some reason he had less than 2 hours of sleep which would be very atypical for him. He also had a lot of bladder activity and spasms which he attributed to the med. He does not ever want to get Ambien again. No major changes in his breathinghas not been hospitalized for COPD flareup or needed at antibiotics. He does complain of chronic phlegm. He is adherent to his inhalers and nebulizer. He is not smoking He does wear oxygen 24/7 including at night. He does not complain of orthopnea or leg swelling. Otherwise, no change in medical history since last seen in this clinic. EPWORTH SLEEPINESS SCALE How likely would you be to doze or sleep in the folowing situations? [Never = 0, Slight = 1, Moderate = 2, High = 3] __ Sitting & reading? __ Watching TV? __ Sitting, inactive in a public place (ex. a theater or meeting)? __ As a passenger in a car for an hour without a break? __ Lying down to rest in the afternoon, when circumstances permit? __ Sitting and talking to someone? __ Sitting quietly after lunch without alcohol? __ In a car, while stopped for a few minutes in traffic? TOTAL = __8__ LUCIA: not indicated Review of Symptoms (ROS): Pertinent positives in HPI, otherwise remainder of 12 point review of symptoms is negative. PAST MEDICAL HISTORY: Active problems - Computerized Problem List is the source for the followin. Osteoarthritis (SNOMED CT 321981116) 2. Depression (SNOMED CT 09340776) 3. Posttraumatic stress disorder (SNOMED CT 17432007) 4. 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 Malignant tumor of oropharynx - 1977 6. Coronary artery disease - S/P stents to RCA and Cx in 2003 (ANW) - Cath (2011) No significant lesions. - Rest MPS (2016) No ischemia. EF 58%. - Echo (2016) EF 60-65%. Normal chambers and valves. - 2018 Stress Thalium: 1. No ischemia demonstrated. 7. [...] year hx 21. Hearing loss 22. Tremor 23. Exposure to potentially hazardous substance ([facility] [id number]) - Entered through [facility] Documentation Initiative 24. Parkinsonism 25. Hemifacial spasm of right facial nerve Medications: Active Outpatient Medications (including Supplies): Outpatient [...] ACTIVE BY MOUTH EVERY DAY 7) CYANOCOBALAMIN 500MCG TAB TAKE ONE TABLET BY MOUTH ACTIVE EVERY DAY FOR B12 SUPPLEMENT 8) DICLOFENAC NA 1% TOP GEL APPLY 2 GRAMS TOPICALLY ACTIVE THREE TIMES A DAY NEEDED FOOT PAIN 9) FLUTICAS 500/SALMETEROL 50 INHL DISK 60 INHALE 1 PUFF ACTIVE (S) BY INHALATION TWICE A DAY FOR COPD *RINSE MOUTH AFTER EACH USE* 10) FLUTICASONE PROP 50MCG 120D NASAL INHL SPRAY 2 SPRAYS ACTIVE IN EACH NOSTRIL EVERY DAY FOR CONGESTION 11) GABAPENTIN 300MG CAP TAKE TWO CAPSULES BY MOUTH TWICE ACTIVE (S) A DAY FOR NERVE PAIN IN HANDS 12) GUAIFENESIN 200MG TAB TAKE ONE TABLET BY MOUTH THREE ACTIVE TIMES A DAY NEEDED FOR PHLEGM 13) HYDROCHLOROTHIAZIDE 25MG TAB TAKE ONE TABLET BY MOUTH ACTIVE EVERY DAY FOR BLOOD PRESSURE NEW STRENGTH 14) RIVAROXABAN 20MG TAB TAKE ONE TABLET BY MOUTH EVERY ACTIVE DAY WITH THE LARGEST MEAL OF THE DAY TO TREAT AND/OR PREVENT BLOOD CLOTS 15) SERTRALINE HCL 100MG TAB TAKE ONE AND ONE-HALF ACTIVE (S) TABLETS BY MOUTH EVERY DAY 16) TIOTROPIUM 2.5MCG/ACTUAT 60D ORAL INHL INHALE TWO ACTIVE (S) PUFFS BY INHALATION EVERY DAY FOR COPD 17) TOPIRAMATE 25MG TAB TAKE ONE TABLET BY MOUTH EVERY ACTIVE EVENING FOR 7 DAYS, THEN TAKE ONE TABLET TWICE A DAY FOR 7 DAYS, THEN TAKE ONE TABLET EVERY MORNING FOR 7 DAYS, AND TAKE TWO TABLETS EVERY EVENING FOR 7 DAYS, THEN TAKE TWO TABLETS TWICE A DAY FOR TREMOR Allergies: PENICILLIN (May 15, 1994) SIMVASTATIN (Apr 01, 2006) LOBSTER (Jul 12, 2007) SCALLOPS (Jul 12, 2007) LISINOPRIL (Apr 03, 2008) METOPROLOL (Apr 03, 2008) FISH (Dec 04, 2009) CONTRAST MEDIA (Jul 06, 2022) PHYSICAL EXAM: Vitals: Temperature: 97.8 F [36.6 C] (11/05/2023 08:24) Blood Pressure: 176/94 (11/05/2023 08:28) Pulse: 63 (11/05/2023 08:28) Respiration: 18 (11/05/2023 08:24) Pain: 5 (11/05/2023 08:24) BP: 176/94 (11/05/2023 08:28) P: 63 (11/05/2023 08:28) R: 18 (11/05/2023 08:24) T: 97.8 F [36.6 C] (11/05/2023 08:24) WT: 169 lb [76.66 kg] (10/11/2023 07:42) Pain: 5 (11/05/2023 08:24) O2 Sat: BMI: 28.0 GEN: NAD HEENT: OC clear, AT, Mallampati class 2 NECK: trachea midline, supple Chest: Lungs without wheezing CVS: RRR, nl S1, S2, no m/r/g ABD: NT/ND. Obese EXT: no clubbing, no edema, SKIN: no rash Neuro: awake, alert, oriented Investigations: HCO3 28 TSH: nl Reviewed by me: APR 08, 2023@08:18:2 Measurement ti08:23AM Spirometry Ref LLN Pre ZScore% Ref FVC L 3.06 2.26 2.00 -2.19 65.4 FEV 1 L 2.33 1.63 1.15 -2.66 49.3 FEV1/FVC% 77 63 57 -2.29 PEF L/s 6.97 4.98 3.37 -2.98 48.4 Z-Score Pre-Bronchodilator FVC L -2.19 FEV 1 L -2.66 FEV1/FVC % -2 Diffusing Capacity Ref LLN Pre %Ref Z-Score Z-Score DLCO_SBml/(min*m21.2715.44 7.96 37.4 -4.45 -4.45 DLCOcSBml/(min*m21.2715.44 7.96 37.4 -4.45 -4.45 Hb g(Hb)/dL 13.00 14.60 0.00 0.00 severe obs with severely reduced DLCO 06/22/23 CT chest: 1. Overall improvement in variable mixed pulmonary [...] UIP. Ongoing inflammatory infectious process also possible. 07/27/2023 21:52:55 Requesting Provider: KELI SORIANO MD Interpreting Physician: Jaime Alexandra DO, Abira Usman MD (Sleep Fellow) Scoring Technologist: Laura Solano [facility] [place] ------CLINICAL PRESENTATION------ The patient is a 77 year old male with a BMI of 26.8, and [place] Sleepiness Scale value of 10 who presents with the following indications for PSG: Sleep disordered breathing, Hypoventilation. ------ASSESSMENT------ - This was a full night diagnostic study with TCM monitoring. Overall, the sleep efficiency was very poor at 24% with prolonged sleep latency and wake after sleep onset of 346 minute. Stage N3 and REM sleep were not observed during the study. Moderate obstructive sleep apnea was noted with an AHI of 16.93, which may likley be underestimation of sleep disordered breathing given limited sleep time of 120 minutes. - Sleep-related hypoxemia andrea present for 91.3 minutes with O2 carito of 73%. Patient qualified for oxygen before falling asleep but still showed obstructive events on oxygen therapy. Sleep related hypoventilation was also present. ------RECOMMENDATIONS------ - Recommend continued nightly use of supplemental oxygen, and repeat study for titration with positive airway pressure to determine effective level either without sleep aid or with a different sleep aid than zolpidem. ECHO 11/04/22 The left ventricular systolic function is normal. The visually estimated ejection fraction is 55-60%. The right ventricular systolic function is normal. The inferior vena cava is normal in size, and collapses normally with respiration. There is mild pulmonary hypertension. Estimated RVSP is 45 mmHg. 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 1. AVTAR: overlap. We discussed options of repeat in lab study without ambien or other sleep aid with BiPAP titration (had AHI of 16 on last study). Would do study with ABG and TCM. He is on basline O2. 2. COPD: severe. On inhalers, not smoking. I think he retains based on HCO3 but we really should have ABG/VBG to document this as part of rationale for considering RAD. 3. Pulm HTN: due to COPD. O2 is treatment as well as mgmt of rt heart. Educated pt about risks, benefits, side effects, and alternatives to treatment. Tests reviewed with patient and plan was discussed. Time today was 45 minutes, more than half of it spent in counseling and coordination of care /es/ ANTHONY EDWARDS MD PULMONARY, CRITICAL CARE AND SLEEP MEDICINE Signed: 12/20/2023 12:19 ANTHONY EDWARDS [facility]
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
--- OUTSIDE RECORDS SUMMARY | 2024-02-26 09:16 | XMS_ITS | Encounter Summary ---
Author Name [facility] [place] [facility] Address [address] [place] [address] Care Team Providers Care Bit Grinder Name Role Phone ARMANDOEDUARDO DUNLAP Primary Care Provider Unav ailable Insurance Providers: [...] PART A Sep 30, 2010 PART A [id number] Isaac IGLESIAS PATIENT Selected Encounter This section includes the information on record at [place] for the Encounter. Date/Time Encounter Type Encounter Description Reason Provider Source Nov 15, 2023 07:45 AM CONFORMITY EVALUATION AUDIOLOGY ICD-10-CM H90.3 Sensorineural hearing loss, bilateral ANDENAS MARIKA RENE IHE Encounter Template Text not used by [facility] Assessments - Encounter Diagnoses This section includes the primary and secondary diagnoses documented for the Encounter. Date/Time Primary/Secondary Diagnosis Diagnosis Name Provider Source Nov 15, 2023 08:32 AM PRIMARY Sensorineural hearing loss, bilateral MARIKA CASPER [facility] Nov 15, 2023 08:32 AM SECONDARY Encounter for fitting and adjustment of hearing aid MARIKA CASPER [facility] Nov 15, 2023 08:32 AM SECONDARY Tinnitus, bilateral MARIKA CASPER [facility] Plan of Treatment: Future Appointments (+ 6 months) and Future Tests (+/- 45 days) The Plan of Treatment section includes future care activities for the patient from all [facility]. This section includes future appointments and future orders which are active, pending or scheduled. Future Appointments This section includes appointments that were scheduled to occur 6 months from the date of the Encounter, up to a maximum of 20 appointments. The data comes from all [facility]. Appointment Date/Time Appointment Type Appointme nt Facility Name Nov 26, 2023 05:00 PM AMBULATORY - REHAB [facility] Dec 20, 2023 11:00 AM AMBULATORY - MEDICINE [facility] January 03, 2024 01:00 [facility] January 06, 2024 01:30 PM [facility] - MEDICINE [facility] January 14, 2024 09:00 AM AMBULATORY - PS[facility]CHIATRY [facility] January 18, 2024 09:00 AM AMBULATORY - REHAB [facility] January 25, 2024 05:10 PM AMBULATORY - REHAB [facility] Feb 24, 2024 09:00 AM AMBULATORY - REHAB [facility] Apr 10, 2024 01:00 PM AMBULATORY - REHAB [facility] Active, Pending, and Scheduled Orders This section includes a listing of several types of active, pending, and scheduled orders, including clinic medications orders, diagnostic test orders, procedure orders and consult orders; where the start date of the order is 45 days before the date of the Encounter or 45 days after the date of theEncounter. The data comes from all [facility]. Test Date/Time Test Type Test Details Facility Name Nov 10, 2023 12:00 AM Laboratory - Chemi stry Order BASIC METABOLIC PANEL+MG PLASMA SP ONCE [facility] Lab Results: +/- 30 days of the encounter This section includes the Chemistry and Hematology Lab Results on record with [place] for the patient. Radiology Reports and Pathology Reports are provided separately, in subsequent sections. Lab Results This section contains the Chemistry/Hematology Results that were resulted 30 days before or 30 daysafter the date of the Encounter. Date/Time Source Result Type Result - Unit Interpretation Reference Range Comment Nov 05, 2023 10:21 AM [facility] HEMOGLOBIN A1C Specimen Type: BLOOD Comment: Values obtained from A1C measurements can vary. For typical A1C assays, a reported value of 7.0 could actually be between 6.7 and 7.3 if measured by a reference method. A reported value of 9.0 could actually be between 8.7 and 9.3. Ref: http://www.ngs p.org/CAPdata. asp Ordering Provider: ALHAJI EUBANKS Report Released Date/Time: Nov 05, 2023 10:04 AM Reporting Lab: [facility] [id number] Performing Lab: [facility] [id number] HEMOGLOBIN A1C 5.5 4.0-6.0 Nov 05, 2023 10:21 AM [facility] ELP/IMMFIX,SERUM PANEL Specimen Type: SERUM No comment entered. Ordering Provider: ALHAJI EUBANKS Report Released Date/Time: Nov 05, 2023 10:03 AM Reporting Lab: [facility] [id number] Performing Lab: [facility] [id number] PROTEIN,TOTA L 8.0 g/dL 6.0-8.3 .ALBUMIN FRACTION 4.22 g/dL 3.66-4.78 .ALPHA 1 FRACTION 0.41 g/dL H 0.14-0.38 .ALPHA 2 FRACTION 0.81 g/dL 0.50-0.90 .BETA 1 FRACTION 0.52 g/dL 0.33-0.55 .BETA 2 FRACTION 0.44 g/dL 0.20-0.52 .GAMMA FRACTION 1.61 g/dL 0.58-1.72 .TOTAL PROTEIN 8.0 g/dL 6.0-8.3 .INTERPRETAT ION NO MONOCLONALS DETECTED Social History: Smoking Status (Most current) and Tobacco Use (All prior to encounter date) This section includes the most current, and the historical, smoking and tobacco- related health factors from the [place] facility where the Encounter took place. Current Smoking Status This section includes the most current smoking, or tobacco-related health factor, from the [place] facility where the Encounter took place. Date/Time Current Smoking Status Comment Facil ity Oct 11, 2023 08:00 AM VA-TOBACCO FORMER USER [facility] Tobacco Use History This section includes a history of the smoking, or tobacco-related health factors, that were collected on or before the date of the Encounter. The data comes from the [place] facility where the Encounter took place. Date/Time Smoking Status/Tobacco Use Comment F acility Oct 11, 2023 08:00 AM VA-TOBACCO QUIT 15 YRS OR MORE [facility] Aug 17, 2022 09:15 AM VA-TOBACCO FORMER USER [facility] Aug 17, 2022 09:15 AM VA-TOBACCO QUIT 15 YRS OR MORE [facility] Oct 27, 2021 09:00 AM VA-TOBACCO FORMER USER [facility] Oct 27, 2021 09:00 AM VA-TOBACCO QUIT 15 YRS OR MORE [facility] Sep 19, 2020 09:00 AM VA-TOBACCO FORMER USER [facility] Sep 19, 2020 09:00 AM VA-TOBACCO QUIT 15 YRS OR MORE [facility] Dec 20, 2018 10:09 AM VA-TOBACCO FORMER USER [facility] Dec 20, 2018 10:09 AM VA-TOBACCO QUIT 15 YRS OR MORE [facility] Dec 07, 2017 09:12 AM FORMER TOBACCO USER 7Y OR GREATE R [facility] Apr 21, 2017 08:35 AM FORMER TOBACCO USER 7Y OR GREATE R [facility] Apr 28, 2016 08:20 AM FORMER TOBACCO USER 7Y OR GREATE R [facility] January 22, 2015 10:07 AM FORMER TOBACCO USER 7Y OR GREATE R [facility] January 25, 2014 10:11 AM FORMER TOBACCO USER 7Y OR GREATE R [facility] December 30, 2011 08:00 AM FORMER TOBACCO USER 7Y OR GREATE R [facility] January 21, 2011 01:16 PM FORMER TOBACCO USE >1Y <7Y [facility] Nov 27, 2009 08:09 AM FORMER TOBACCO USE >1Y <7Y [facility] Dec 27, 2008 12:32 AM FORMER TOBACCO USE >1Y <7Y [facility] January 03, 2008 12:52 PM FORMER TOBACCO USE >1Y <7Y [facility] January 11, 2007 10:43 AM FORMER TOBACCO USE >1Y <7Y [facility] Advance Directives: All historical and current Section Date Range: From patient's date of to the date document was created. This section includes ALL of a patient's completed or amended [place] Advance and Rescinded Directives. The entries below indicate that a directive exists for the patient, but an actual copy is not included with this document. The data comes from all [place] facilities. Date Advance Directives Provider Source Dec 04, 2009 CLINICAL WARNING KAMARI CUMMINGS [facility] Encounter Notes: All associated encounter notes This section contains the clinical notes associated to the Encounter. Date/Time Encounter Note(s) Provider Source Nov 15, 2023 08:16 AM AUDIOLOGY NOTE: LOCAL TITLE: AUDIOLOGY CLINIC NOTE STANDARD TITLE: AUDIOLOGY NOTE DATE OF NOTE: NOV 15, 2023@08:16 ENTRY DATE: NOV 15, 2023@08:16:04 AUTHOR: JASMYNE CASPER COSIGNER: URGENCY: STATUS: COMPLETED SUBJECT: Fitting HEARING AID FITTING DIAGNOSIS: Encounter for Fitting and Adjustment of Hearing Aid Sensorineural loss Tinnitus REASON FOR VISIT: Therapeutic - hearing aid fitting, conformity evaluation (real-ear measures), orientation and counseling. [place] was seen for Hearing Aid [place] Appointment OTOSCOPY: Free of excessive cerumen. Normal anatomy bilaterally. HISTORY: [place] has never used hearing aids previously. HEARING AIDS: 11/15/23 SIVANTOS PURE C&G T 7IX KIRT-R R [id number] 11/17/26 04/16/24 618 DANTE 11/15/23 SIVANTOS PURE C&G T 7IX KIRT-R L [id number] 11/17/26 04/16/24 618 DANTE Receivers: 46 DB S SENIOR MEDICAL TRANSCRIPTIONIST 3.0 SZ-3 Wax Prevent: [employer] KIRT Item: SLEEVE 3.0 VENTED S ACTION: Hearing aids are a good physical fit. Feedback test was completed and feedback consumer marketing manager was activated. Hearing aids were programmed to prescriptive targets, which were derived from the Veterans hearing loss. Real-ear measures (conformity evaluation) were completed (NAL-NL2). Gain and output were adjusted to ensure audibility and comfort. Loudness intolerance was measured using a 90 dB MPO tone sweep and the patient was able to tolerate the output of the hearing device(s). Veterans subjective impressions were considered while adjusting the hearing aids. Volume control enabled - rocker switch. [place] was counseled regarding: -Full-time hearing aid use and acclimating to amplification -Realistic expectations for hearing aid use -How to charge the hearing aids -Location and operation of all controls -Proper care and maintenance -[facility] and Call Center contact information and services, including the trial period. [place] reported good sound quality and equal balance between ears after adjustments were made. reported a comfortable fit in both ears. demonstrated understanding of the new aids and was able to insert the hearing aids appropriately, as well as manipulate the volume control and charging unit. Prognosis for success is good, given the Veterans response to the hearing aids. Hearing aids were issued and batteries and supplies were mailed. was provided with a copy of [place] issuance form [id number]. PLAN: [place] will return to clinic as needed for service as needed. Patient is in agreement with this plan. /johana/ BEULAH [place] STAFF ROPEWALK ROPE MAKER Signed: 11/15/2023 08:32 APOLONIA CASPER [facility]
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
--- OUTSIDE RECORDS SUMMARY | 2024-02-26 09:17 | XMS_ITS | Encounter Summary ---
Author Name [facility] [place] Organization [facility] [place] [place] Address [address] [place] [address] Care Team Providers Care Inspector Finishing Name Role Phone MASHAPamela CHERIRUSSABDELRAHMAN Primary Care Provider Unav ailable Insurance Providers: [...] PART A Sep 30, 2010 PART A [id number] [phone] Isaac IGLESIAS PATIENT Selected Encounter This section includes the information on record at [place] for the Encounter. Date/Time Encounter Type Encounter Description Reason Pro vider Source January 03, 2024 01:25 PM Outpatient Encounter EVENT (HISTORICAL) IHE Encounter Template Text not used by [place] Plan of Treatment: Future Appointments (+ 6 [...] 20 appointments. The data comes from all [place] treatment facilities. Appointment Date/Time Appointment Type Appointme nt Facility Name January 06, 2024 01:30 PM [facility] January 14, 2024 09:00 AM AMBULATORY - PSYCHIATRY [facility] January 18, 2024 09:00 AM AMBULATORY - REHAB MEDICIN [facility] January 25, 2024 05:10 PM AMBULATORY - REHAB MEDICIN E [facility] Feb 24, 2024 09:00 AM AMBULATORY - REHAB MEDICIN E [facility] Apr 10, 2024 01:00 PM AMBULATORY - REHAB MEDICIN E [facility] May 31, 2024 08:30 AM AMBULATORY - PSYCHIATRY [facility] Vital Signs: All taken on the encounter date This section contains inpatient and outpatient Vital Signs collected on the date of the Encounter. Date/Time Temperature Pulse Blood Pressure Respiratory Rate SP02 Pain Height Weight Body Mass Index Source January 03, 2024 01:01 PM 98.6 72 121/78 18 91 0 162 27 [facility] Social History: Smoking Status (Most current) and Tobacco Use (All prior to encounter date) This section includes the most current, and the historical, smoking and tobacco- related health factors from the [place] facility where the Encounter took place. Current Smoking Status This section includes the most current smoking, or tobacco-related health factor, from the [place] facility where the Encounter took place. Date/Time Current Smoking Status Comment Anuja ity Oct 11, 2023 08:00 AM VA-TOBACCO FORMER USER [facility] Tobacco Use History This section includes a history of the smoking, or tobacco-related health factors, that were collected on or before the date of the Encounter. The data comes from the [place] facility where the Encounter took place. Date/Time Smoking Status/Tobacco Use Comment F acility Oct 11, 2023 08:00 AM VA-TOBACCO QUIT 15 YRS OR MORE [facility] Aug 17, 2022 09:15 AM VA-TOBACCO FORMER USER [facility] Aug 17, 2022 09:15 AM VA-TOBACCO QUIT 15 YRS OR MORE [facility] Oct 27, 2021 09:00 AM VA-TOBACCO FORMER USER [facility] Oct 27, 2021 09:00 AM VA-TOBACCO QUIT 15 YRS OR MORE [facility] Sep 19, 2020 09:00 AM VA-TOBACCO FORMER USER [facility] Sep 19, 2020 09:00 AM VA-TOBACCO QUIT 15 YRS OR MORE [facility] Dec 20, 2018 10:09 AM VA-TOBACCO FORMER USER [facility] Dec 20, 2018 10:09 AM [place]-TOBACCO QUIT 15 YRS OR MORE [facility] Dec 07, 2017 09:12 AM FORMER TOBACCO USER 7Y OR GREATE R [facility] Apr 21, 2017 08:35 AM FORMER TOBACCO USER 7Y OR GREATE R [facility] Apr 28, 2016 08:20 AM FORMER TOBACCO USER 7Y OR GREATE R [facility] January 22, 2015 10:07 AM FORMER TOBACCO USER 7Y OR GREATE R [facility] January 25, 2014 10:11 AM FORMER TOBACCO USER 7Y OR GREATE R [facility] December 30, 2011 08:00 AM FORMER TOBACCO USER 7Y OR GREATE R [facility] January 21, 2011 01:16 PM FORMER TOBACCO USE >1Y <7Y [facility] Nov 27, 2009 08:09 AM FORMER TOBACCO USE >1Y <7Y [facility] Dec 27, 2008 12:32 AM FORMER TOBACCO USE >1Y <7Y [facility] January 03, 2008 12:52 PM FORMER TOBACCO USE >1Y <7Y [facility] January 11, 2007 10:43 AM FORMER TOBACCO USE >1Y <7Y [facility] Advance Directives: All historical and current Section Date Range: From patient's date of to the date document was created. This section includes ALL of a patient's completed or amended [place] Advance and Rescinded Directives. The entries below indicate that a directive exists for the patient, but an actual copy is not included with this document. The data comes from all [facility]. Date Advance Directives Provider Source Dec 04, 2009 CLINICAL WARNING KAMARI C[facility]INGS [facility] Radiology Reports: +/- 30 days [...] the Encounter. The data comes from all [place] treatment facilities. Date/Time Radiology Report Provider Source January 06, 2024 02:40 PM CHEST 2 VIEWS PA A [place] LAT: HARRISROSS ALEJANDRO [id number] -1945 M Exm Date: JANUARY 06, 2024@14:40 Req Phys: ANTONIO AREVALO Jovi Pat Loc: [facility] PULJovi AREVALO (Req'g Loc) Img Loc: MAIN X-RAY Service: [place] [address] (Case [id number] COMPLETE) CHEST 2 VIEWS PA AND LAT (RAD Detailed) CPT:72867 Reason for Study: pneumonia evaluation Clinical History: [place] IS NOT under investigation for COVID-19 or is COVID-19 negative pneumonia evaluation Responsible provider name and phone number to notify for critical findings if other than user placing the order and pager listed below: User placing orders pager: [phone] LAST CREATININE 1.2 (10/11/23) Report Status: Verified Date Reported: JANUARY 07, 2024 Date Verified: JANUARY 07, 2024 Forming Roll Operator E-Sig: Report: 2 View Chest x-ray Clinical history: No additional clinical history. Comparison:02/19/2023. Findings: No pulmonary edema. No focal consolidations. Stable interstitial opacities. The cardiac and mediastinal silhouettes are stable. No pleural effusions. Impression: No acute cardiopulmonary disease. READING PHYSICIAN: Daniel Ram M.D. -[id number] 01/07/2024 13:57 PDT [facility] National Teleradiology Program [phone] (For Medical Practitioner Use Only) Attention Patients / Veterans: If you have questions or concerns about these test results, please contact your ordering provider or primary care team. Primary Interpreting Staff: RADIOLOGY,OUTSIDE SERVICE, Staff Physician / RADIOLOGY,OUTSIDE SERVICE [facility]
--- OUTSIDE RECORDS SUMMARY | 2024-02-26 09:18 | XMS_ITS | Encounter Summary ---
Author Name [facility] [place] [place] Organization [facility] [place] Address [address] [place] [address] Care Team Providers Care Certified Income Tax Preparer Name Role Phone EDUARDO PRATT Primary Care [...] PART A Sep 30, 2010 PART A [id number] [phone] Isaac IGLESIAS PATIENT Selected Encounter This section includes the information on record at [place] for the Encounter. Date/Time Encounter Type Encounter Description Reason Provider Source January 06, 2024 01:30 PM OFFICE O/P EST HI 40 MIN PULMONARY/CHEST ICD-10-CM J44.9 Chronic obstructive pulmonary disease, unspecified EDSON AREVALO IHZulma Encounter Template Text not used by [place] Assessments - Encounter Diagnoses This section includes the primary and secondary diagnoses documented for the Encounter. Date/Time Primary/Secondary Diagnosis Diagnosis Name Provider Source January 07, 2024 09:03 AM PRIMARY Chronic obstructive pulmonary disease, unspecified EDSON AREVALO [facility] January 07, 2024 09:03 AM SECONDARY Chronic respiratory failure with hypoxia EDSON AREVALO [facility] January 07, 2024 09:03 AM SECONDARY Personal history of nicotine dependence EDSON AREVALO [facility] January 07, 2024 09:03 AM SECONDARY Pulmonary hypertension, unspecified EDSON AREVALO [facility] Plan of Treatment: Future Appointments (+ 6 months) and Future Tests (+/- 45 days) The Plan of Treatment section includes future care activities for the patient [facility] [place] [facility] This section includes future appointments and future orders which are active, pending or scheduled. Future Appointments This section includes appointments that were scheduled to occur 6 months from the date of the Encounter, up to a maximum of 20 appointments. The data comes from all [facility] facilities. Appointment Date/Time Appointment Type Appointme nt Facility Name January 14, 2024 09:00 AM AMBULATORY - PSYCHIATRY [facility] January 18, 2024 09:00 AM AMBULATORY - REHAB [facility] January 25, 2024 05:10 PM [facility] Feb 24, 2024 09:00 AM AMBULATORY - [facility]AB [facility] Apr 10, 2024 01:00 [facility] May 31, 2024 08:30 AM AMBULATORY - PSYCHIATRY [facility] Vital Signs: All taken on the encounter date This section contains inpatient and outpatient Vital Signs collected on the date of the Encounter. Date/Time Temperature Pulse Blood Pressure Respiratory Rate SP02 Pain Height Weight Body Mass Index Source January 06, 2024 01:35 PM 98.4 81 100/61 18 95 1 164.4 27 [facility] Social History: Smoking Status (Most current) and Tobacco Use (All prior to encounter date) This section includes the most current, and the historical, smoking and tobacco- related health factors from the [place] facility where the Encounter took place. Current Smoking Status This section includes the most current smoking, or tobacco-related health factor, from the [place] facility where the Encounter took place. Date/Time Current Smoking Status Edward alexis Oct 11, 2023 08:00 AM VA-TOBACCO FORMER USER [facility] Tobacco Use History This section includes a history of the smoking, or tobacco-related health factors, that were collected on or before the date of the Encounter. The data comes from the [place] facility where the Encounter took place. Date/Time Smoking Status/Tobacco Use Comment F acility Oct 11, 2023 08:00 AM VA-TOBACCO QUIT 15 YRS OR MORE [facility] Aug 17, 2022 09:15 AM VA-TOBACCO FORMER USER [facility] Aug 17, 2022 09:15 AM VA-TOBACCO QUIT 15 YRS OR MORE [facility] Oct 27, 2021 09:00 AM VA-TOBACCO FORMER USER [facility] Oct 27, 2021 09:00 AM VA-TOBACCO QUIT 15 YRS OR MORE [facility] Sep 19, 2020 09:00 AM VA-TOBACCO FORMER USER [facility] Sep 19, 2020 09:00 AM VA-TOBACCO QUIT 15 YRS OR MORE [facility] Dec 20, 2018 10:09 AM VA-TOBACCO FORMER USER [facility] Dec 20, 2018 10:09 AM VA-TOBACCO QUIT 15 YRS OR MORE [facility] Dec 07, 2017 09:12 AM FORMER TOBACCO USER 7Y OR GREATE R [facility] Apr 21, 2017 08:35 AM FORMER TOBACCO USER 7Y OR GREATE R [facility] Apr 28, 2016 08:20 AM FORMER TOBACCO USER 7Y OR GREATE R [facility] January 22, 2015 10:07 AM FORMER TOBACCO USER 7Y OR GREATE R [facility] January 25, 2014 10:11 AM FORMER TOBACCO USER 7Y OR GREATE R [facility] December 30, 2011 08:00 AM FORMER TOBACCO USER 7Y OR GREATE R [facility] January 21, 2011 01:16 PM FORMER TOBACCO USE >1Y <7Y [facility] Nov 27, 2009 08:09 AM FORMER TOBACCO USE >1Y <7Y [facility] Dec 27, 2008 12:32 AM FORMER TOBACCO USE >1Y <7Y [facility] January 03, 2008 12:52 PM FORMER TOBACCO USE >1Y <7Y [facility] January 11, 2007 10:43 AM FORMER TOBACCO USE >1Y <7Y [facility] Advance Directives: All historical and current Section Date Range: From patient's date of to the date document was created. This section includes ALL of a patient's completed or amended [place] Advance and Rescinded Directives. The entries below indicate that a directive exists for the patient, but an actual copy is not included with this document. The data comes from all [place] facilities. Date Advance Directives Provider Source Dec 04, 2009 CLINICAL WARNING KAMARI CUMMINGS [facility] Radiology Reports: +/- 30 days [...] the Encounter. The data comes from all [place] treatment facilities. Date/Time Radiology Report Provider Source January 06, 2024 02:40 PM CHEST 2 VIEWS PA A ND LAT: ROSS IGLESIAS [id number] M Exm Date: JANUARY 06, 2024@14:40 Req Phys: ANTONIO AREVALO Pat Loc: [facility] PULJovi AREVALO (Req'g Loc) Img Loc: MAIN X-RAY Service: [place] [address] (Case [id number] COMPLETE) CHEST 2 VIEWS PA AND LAT (RAD Detailed) CPT:50751 Reason for Study: pneumonia evaluation Clinical History: IS NOT under investigation for COVID-19 or is COVID-19 negative pneumonia evaluation Responsible provider name and phone number to notify for critical findings if other than user placing the order and pager listed below: User placing orders pager: [phone] LAST CREATININE 1.2 (10/11/23) Report Status: Verified Date Reported: JANUARY 07, 2024 Date Verified: JANUARY 07, 2024 Dry Cell Tester E-Sig: Report: 2 View Chest x-ray Clinical history: No additional clinical history. Comparison:02/19/2023. Findings: No pulmonary edema. No focal consolidations. Stable interstitial opacities. The cardiac and mediastinal silhouettes are stable. No pleural effusions. Impression: No acute cardiopulmonary disease. READING PHYSICIAN: Daniel Ram M.D. -[id number] 01/07/2024 13:57 PDT [facility] National Teleradiology Program [phone] (For Medical Practitioner Use Only) Attention Patients / Veterans: If you have questions or concerns about these test results, please contact your ordering provider or primary care team. Primary Interpreting Staff: RADIOLOGY,OUTSIDE SERVICE, Staff Physician / RADIOLOGY,OUTSIDE SERVICE [facility] Encounter Notes: All associated encounter notes This section contains the clinical notes associated to the Encounter. Date/Time Encounter Note(s) Provider Source January 06, 2024 01:37 PM INTERNAL MEDICINE OUTPATIENT NOTE: LOCAL TITLE: MEDICINE CLINIC NURSING NOTE STANDARD TITLE: INTERNAL MEDICINE OUTPATIENT NOTE DATE OF NOTE: JANUARY 06, 2024@13:37 ENTRY DATE: JANUARY 06, 2024@13:37:55 AUTHOR: CHANDRA CAMPOVERDE COSIGNER: URGENCY: STATUS: COMPLETED TYPE OF VISIT: Appointment Check In Type of appointment: In-person appointment REASON FOR VISIT: scheduled appt ALLERGIES: PENICILLIN (May 15, 1994) SIMVASTATIN (Apr 01, 2006) LOBSTER (Jul 12, 2007) SCALLOPS (Jul 12, 2007) LISINOPRIL (Apr 03, 2008) METOPROLOL (Apr 03, 2008) FISH (Dec 04, 2009) CONTRAST MEDIA (Jul 06, 2022) ZOLPIDEM (Dec 20, 2023) TOPIRAMATE (January 03, 2024) VITAL SIGNS: Blood Pressure: 100/61 (01/06/2024 13:35) Pulse: 81 (01/06/2024 13:35) Respiration: 18 (01/06/2024 13:35) Temperature: 98.4 F [36.9 C] (01/06/2024 13:35) Weight: 164.4 lb [74.57 kg] (01/06/2024 13:35) Height: 65.25 in [165.7 cm] (10/11/2023 07:42) BMI: 27.2 O2 Sat: 95% (01/06/2024 13:35) Pain: 1 (01/06/2024 13:35) PAIN SCREEN: Patient is not having significant pain that they wish to discuss with their provider today. MEDICATION Active Outpatient Medications (including Supplies): ALBUTEROL 90MCG (CFC-F) 200D ORAL INHL INHALE 2 PUFFS BY ACTIVE INHALATION EVERY 4 HOURS NEEDED FOR SHORTNESS OF BREATH ATORVASTATIN CALCIUM 40MG TAB TAKE ONE TABLET BY MOUTH ACTIVE EVERY DAY FOR CHOLESTEROL BRIMONIDINE TARTRATE 0.2% OPH SOLN INSTILL 1 DROP IN BOTH ACTIVE (S) EYES TWICE A DAY FOR GLAUCOMA SPACE 10 MINUTES APART FROM OTHER EYE DROPS CALCIUM CARBONATE 650MG (CA 260MG) TAB TAKE ONE TABLET BY ACTIVE (S) MOUTH EVERY DAY CARBOXYMETHYLCELLULOSE NA 0.25% OPH SOLN INSTILL 2 DROPS ACTIVE IN OPERATIVE EYE EVERY 2 HOURS NEEDED FOR DRY EYES CHOLECALCIF 25MCG (D3-1,000UNIT) TAB TAKE ONE TABLET BY ACTIVE (S) MOUTH EVERY DAY CYANOCOBALAMIN 500MCG TAB TAKE ONE TABLET BY MOUTH EVERY ACTIVE DAY FOR B12 SUPPLEMENT DICLOFENAC NA 1% TOP GEL APPLY 2 GRAMS TOPICALLY THREE ACTIVE TIMES A DAY NEEDED FOOT PAIN FLUTICAS 500/SALMETEROL 50 INHL DISK 60 INHALE 1 PUFF BY ACTIVE (S) INHALATION TWICE A DAY FOR COPD *RINSE MOUTH AFTER EACH USE* FLUTICASONE PROP 50MCG 120D NASAL INHL SPRAY 2 SPRAYS IN ACTIVE (S) EACH NOSTRIL EVERY DAY FOR CONGESTION GABAPENTIN 300MG CAP TAKE TWO CAPSULES BY MOUTH TWICE A ACTIVE (S) DAY FOR NERVE PAIN IN HANDS GUAIFENESIN 200MG TAB TAKE ONE TABLET BY MOUTH THREE TIMES ACTIVE A DAY NEEDED FOR PHLEGM HYDROCHLOROTHIAZIDE 25MG TAB TAKE ONE TABLET BY MOUTH ACTIVE (S) EVERY DAY FOR BLOOD PRESSURE NEW STRENGTH RIVAROXABAN 20MG TAB TAKE ONE TABLET BY MOUTH EVERY DAY ACTIVE WITH THE LARGEST MEAL OF THE DAY TO TREAT AND/OR PREVENT BLOOD CLOTS SERTRALINE HCL 100MG TAB TAKE ONE AND ONE-HALF TABLETS BY ACTIVE MOUTH EVERY DAY TIOTROPIUM 2.5MCG/ACTUAT 60D ORAL INHL INHALE TWO PUFFS BY ACTIVE (S) INHALATION EVERY DAY FOR COPD Pulmonary Clinic General Appearance: Short of Breath Respiratory Assessment Is this a change from your last visit to Pulmonary? Yes, specify: worse per Anish /johana/ TURNER HUANG, RN, ANM NUT SHELLER MACHINE OPERATOR NURSE MANAGER DIABETES 3D Signed: 01/06/2024 13:39 CHANDRA CAMPOVERDE [facility] January 06, 2024 09:07 AM PULMONARY ATTENDIN G OUTPATIENT NOTE: LOCAL TITLE: PULMONARY CLINIC NOTE STANDARD TITLE: PULMONARY ATTENDING OUTPATIENT NOTE DATE OF NOTE: JANUARY 06, 2024@09:07 ENTRY DATE: JANUARY 06, 2024@09:07:33 AUTHOR: ANTONIO AREVALO EXP COSIGNER: URGENCY: STATUS: COMPLETED PULMONARY CLINIC NOTE Has ADDENDA Patient summary: 78-year-old man with a history of oropharyngeal cancer with resection in the , coronary artery disease with PCI in 2003, heart failure preserved ejection fraction, COPD with severe obstruction, and pulmonary hypertension who is followed for chronic hypoxic respiratory failure and an abnormal chest CT. 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 At that visit his breathing was okay as long as he had on supplemental oxygen. He had not had any significant progression on imaging or in his symptoms and we held off on antifibrotic's with plan to repeat PFTs in [address] chest at that visit showed overall improvement in groundglass opacities and improvement in a dense consolidation and bronchiectasis in the left upper lobe. Interval history: He feels like his brething is geting worse and worse. He had a sleep evaluation, but did not fall asleep until 530 in the morning. He took a sleeping pill that night and it went quite well. He is not interested in repeating his sleep study. In the last 2 months he has been 'filling up with mucous' and blowing his nose constantly. He is spitting up a lot of mucous and coughing a lot more than he has in the past. He is also feeling more short of breath. He can walk 4-5 blocks, this is a decline from previous. He rarely has some streaks of blood in his sputum. When he was sleeping a couple of weeks ago his oxygen came off when he woke up he could hardly breathe. He checked his oxygen and he was barely 60%. He is using the same amount of oxygen as he has had in the past. He has had no fevers, chills, night sweats. He has had some lightheadedness and dizziness. Pertinent medications: Albuterol Rivaroxaban Fluticasone/salmeterol Tiotropium Past medical history, surgical history, and social history reviewed in CPRS. Physical Exam: VS reviewed in CPRS Gen -mildly ill-appearing elderly man CV -regular rate and rhythm Pulm -bibasilar crackles, symmetric, no wheezing Ext -no edema PFTs (personally reviewed and interpreted): No new PFTs. Prior PFTs showed moderate obstruction with severe diffusion reduction. Chest imaging (personally reviewed and interpreted): No new imaging. 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 Labs (personally reviewed and interpreted): No new labs Labs, tests and imaging results listed in pulmonary note were discussed with patient. 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 He has had several months of worsening cough and sputum production, which he we will obtain a chest x-ray and treat him for a has not had in the past. COPD exacerbation with prednisone and doxycycline today. I will also ask our nurse to call him next week, and if he is not improving we will obtain a chest CT. No changes to his inhalers today. - chest xray, pred, and doxy today - rn call next week Total of 40 minutes spent on chart review, with patient, documentation on the date of service. /es/ ANTONIO AREVALO MD [facility]CS STAFF PHYSICIAN Signed: 01/07/2024 09:03 01/07/2024 ADDENDUM STATUS: COMPLETED Copying pulmonary RN to request a phone call to this next week to inquire if he has improved with prednisone and doxycycline. /es/ ANTONIO AREVALO MD [facility] STAFF PHYSICIAN Signed: 01/07/2024 09:04 ANTONIO AREVALO [facility]
--- OUTSIDE RECORDS SUMMARY | 2024-02-26 09:18 | XMS_ITS | Encounter Summary ---
Author Name [facility] [place] [facility] [place] Address [address] [place] [address] Care Team Providers Care Laundry Housekeeper Name Role Phone MASHAPamela EDUARDO Primary Care Provider Unav ailable Insurance Providers: [...] PART A Sep 30, 2010 PART A [id number] Isaac IGLESIAS PATIENT Selected Encounter This section includes the information on record at [place] for the Encounter. Date/Time Encounter Type Encounter Description Reason Pro vider Source January 05, 2024 12:00 AM Outpatient Encounter EVENT (HISTORICAL) IHE Encounter Template Text not used by [place] Plan of Treatment: Future Appointments (+ 6 [...] 20 appointments. The data comes from all [place] treatment facilities. Appointment Date/Time Appointment Type Appointme nt Facility Name January 06, 2024 01:30 PM [facility] January 14, 2024 09:00 AM AM[facility]ATORY - PS[facility]IATRY [facility] January 18, 2024 09:00 AM AMBULATORY - REHAB MEDICIN E [facility] January 25, 2024 05:10 PM AMBULATORY - REHAB MEDICIN E [facility] Feb 24, 2024 09:00 AM AMBULATORY - REHAB MEDICIN E [facility] Apr 10, 2024 01:00 PM AMBULATORY - REHAB MEDICIN E [facility] May 31, 2024 08:30 AM AMBULATORY - PS[facility]CHIATRY [facility] Social History: Smoking Status (Most current) and Tobacco Use (All prior to encounter date) This section includes the most current, and the historical, smoking and tobacco- related health factors from the [place] facility where the Encounter took place. Current Smoking Status This section includes the most current smoking, or tobacco-related health factor, from the [place] facility where the Encounter took place. Date/Time Current Smoking Status Comment Facil ity Oct 11, 2023 08:00 AM VA-TOBACCO QUIT 15 YRS OR MORE [facility] Tobacco Use History This section includes a history of the smoking, or tobacco-related health factors, that were collected on or before the date of the Encounter. The data comes from the [place] facility where the Encounter took place. Date/Time Smoking Status/Tobacco Use Comment F acility Oct 11, 2023 08:00 AM VA-TOBACCO QUIT 15 YRS OR MORE [facility] Aug 17, 2022 09:15 AM VA-TOBACCO FORMER USER [facility] Aug 17, 2022 09:15 AM VA-TOBACCO QUIT 15 YRS OR MORE [facility] Oct 27, 2021 09:00 AM VA-TOBACCO FORMER USER [facility] Oct 27, 2021 09:00 AM VA-TOBACCO QUIT 15 YRS OR MORE [facility] Sep 19, 2020 09:00 AM VA-TOBACCO FORMER USER [facility] Sep 19, 2020 09:00 AM VA-TOBACCO QUIT 15 YRS OR MORE [facility] Dec 20, 2018 10:09 AM VA-TOBACCO FORMER USER [facility] Dec 20, 2018 10:09 AM VA-TOBACCO QUIT 15 YRS OR MORE [facility] Dec 07, 2017 09:12 AM FORMER TOBACCO USER 7Y OR GREATE R [facility] Apr 21, 2017 08:35 AM FORMER TOBACCO USER 7Y OR GREATE R [facility] Apr 28, 2016 08:20 AM FORMER TOBACCO USER 7Y OR GREATE R [facility] January 22, 2015 10:07 AM FORMER TOBACCO USER 7Y OR GREATE R [facility] January 25, 2014 10:11 AM FORMER TOBACCO USER 7Y OR GREATE R [facility] December 30, 2011 08:00 AM FORMER TOBACCO USER 7Y OR GREATE R [facility] January 21, 2011 01:16 PM FORMER TOBACCO USE >1Y <7Y [facility] Nov 27, 2009 08:09 AM FORMER TOBACCO USE >1Y <7Y [facility] Dec 27, 2008 12:32 AM FORMER TOBACCO USE >1Y <7Y [facility] January 03, 2008 12:52 PM FORMER TOBACCO USE >1Y <7Y [facility] January 11, 2007 10:43 AM FORMER TOBACCO USE >1Y <7Y [facility] Advance Directives: All historical and current Section Date Range: From patient's date of to the date document was created. This section includes ALL of a patient's completed or amended [place] Advance and Rescinded Directives. The entries below indicate that a directive exists for the patient, but an actual copy is not included with this document. The data comes from all [facility]. Date Advance Directives Provider Source Dec 04, [...] the Encounter. The data comes from all [place] treatment facilities. Date/Time Radiology Report Provider Source January 06, 2024 02:40 PM CHEST 2 VIEWS PA A ND LAT: ROSS IGLESIAS [id number] -1945 M Exm Date: JANUARY 06, 2024@14:40 Req Phys: ANTONIO AREVALO Loc: [facility] (Req'g Loc) Img Loc: MAIN X-RAY Service: [place] [address] (Case [id number] COMPLETE) CHEST 2 VIEWS PA AND LAT (RAD Detailed) CPT:87544 Reason for Study: pneumonia evaluation Clinical History: [place] IS NOT under investigation for COVID-19 or is COVID-19 negative pneumonia evaluation Responsible provider name and phone number to notify for critical findings if other than user placing the order and pager listed below: User placing orders pager: [phone] LAST CREATININE 1.2 (10/11/23) Report Status: Verified Date Reported: JANUARY 07, 2024 Date Verified: JANUARY 07, 2024 Surgical Elastic Knitter Hand Frame E-Sig: Report: 2 View Chest x-ray Clinical history: No additional clinical history. Comparison:02/19/2023. Findings: No pulmonary edema. No focal consolidations. Stable interstitial opacities. The cardiac and mediastinal silhouettes are stable. No pleural effusions. Impression: No acute cardiopulmonary disease. READING PHYSICIAN: Daniel Ram M.D. -[id number] 01/07/2024 13:57 PDT [facility] National Teleradiology Program [phone] (For Medical Practitioner Use Only) Attention Patients / Veterans: If you have questions or concerns about these test results, please contact your ordering provider or primary care team. Primary Interpreting Staff: RADIOLOGY,OUTSIDE SERVICE, Staff Physician / RADIOLOGY,OUTSIDE SERVICE [facility]
--- OUTSIDE RECORDS SUMMARY | 2024-02-26 09:18 | XMS_ITS | Encounter Summary ---
Author Name [facility] [place] [facility] [place] Address [address] [place] [address] Care Team Providers Care Chef Concierge Name Role Phone EDUARDO PRATT Primary Care [...] PART A Sep 30, 2010 PART A [id number] Isaac IGLESIAS PATIENT Selected Encounter This section includes the information on record at [place] for the Encounter. Date/Time Encounter Type Encounter Description Reason Pro vider Source January 05, 2024 03:36 PM OFF/OP EST DECEMBER X REQ PHY/QHP GASTROENTEROLOGY ICD-10-CM Z86.010 Personal history of colonic polyps AMINATA CROCKER Encounter Template Text not used by [place] Assessments - Encounter Diagnoses This section includes the primary and secondary diagnoses documented for the Encounter. Date/Time Primary/Secondary Diagnosis Diagnosis Name Provider Source January 05, 2024 03:38 PM PRIMARY Personal history of colonic polyps AMINATA CROCKER Pamela [facility] Plan of Treatment: Future Appointments (+ 6 months) and Future Tests (+/- 45 days) The Plan of Treatment section includes future care activities for the patient from all [facility]. This section includes future appointments and future orders which are active, pending or scheduled. Future Appointments This section includes appointments that were scheduled to occur 6 months from the date of the Encounter, up to a maximum of 20 appointments. The data comes from all [facility]. Appointment Date/Time Appointment Type Appointme nt Facility Name January 06, 2024 01:30 PM [facility] January 14, 2024 09:00 AM AMBULATORY - PSYCHIATRY [facility] January 18, 2024 09:00 AM AMBULATORY - REHAB MEDICIN [facility] January 25, 2024 05:10 PM AMBULATORY - REHAB MEDICIN [facility] Feb 24, 2024 09:00 AM AMBULATORY - REHAB MEDICIN [facility] Apr 10, 2024 01:00 PM AMBULATORY - REHAB MEDICIN [facility] May 31, 2024 08:30 AM AMBULATORY - PSYCHIATRY [facility] Social History: Smoking Status (Most current) and Tobacco Use (All prior to encounter date) This section includes the most current, and the historical, smoking and tobacco- related health factors from the [facility] where the Encounter took place. Current Smoking Status This section includes the most current smoking, or tobacco-related health factor, from the [place] facility where the Encounter took place. Date/Time Current Smoking Status Comment Anuja itminesh Oct 11, 2023 08:00 AM VA-TOBACCO FORMER USER [facility] Tobacco Use History This section includes a history of the smoking, or tobacco-related health factors, that were collected on or before the date of the Encounter. The data comes from the [place] facility where the Encounter took place. Date/Time Smoking Status/Tobacco Use Comment F acility Oct 11, 2023 08:00 AM [place]-TOBACCO QUIT 15 YRS OR MORE [facility] Aug 17, 2022 09:15 AM VA-TOBACCO FORMER USER [facility] Aug 17, 2022 09:15 AM VA-TOBACCO QUIT 15 YRS OR MORE [facility] Oct 27, 2021 09:00 AM VA-TOBACCO FORMER USER [facility] Oct 27, 2021 09:00 AM VA-TOBACCO QUIT 15 YRS OR MORE [facility] Sep 19, 2020 09:00 AM VA-TOBACCO FORMER USER [facility] Sep 19, 2020 09:00 AM VA-TOBACCO QUIT 15 YRS OR MORE [facility] Dec 20, 2018 10:09 AM VA-TOBACCO FORMER USER [facility] Dec 20, 2018 10:09 AM VA-TOBACCO QUIT 15 YRS OR MORE [facility] Dec 07, 2017 09:12 AM FORMER TOBACCO USER 7Y OR GREATE R [facility] Apr 21, 2017 08:35 AM FORMER TOBACCO USER 7Y OR GREATE R [facility] Apr 28, 2016 08:20 AM FORMER TOBACCO USER 7Y OR GREATE R [facility] January 22, 2015 10:07 AM FORMER TOBACCO USER 7Y OR GREATE R [facility] January 25, 2014 10:11 AM FORMER TOBACCO USER 7Y OR GREATE R [facility] December 30, 2011 08:00 AM FORMER TOBACCO USER 7Y OR GREATE R [facility] January 21, 2011 01:16 PM FORMER TOBACCO USE >1Y <7Y [facility] Nov 27, 2009 08:09 AM FORMER TOBACCO USE >1Y <7Y [facility] Dec 27, 2008 12:32 AM FORMER TOBACCO USE >1Y <7Y [facility] January 03, 2008 12:52 PM FORMER TOBACCO USE >1Y <7Y [facility] January 11, 2007 10:43 AM FORMER TOBACCO USE >1Y <7Y [facility] Advance Directives: All historical and current Section Date Range: From patient's date of to the date document was created. This section includes ALL of a patient's completed or amended [place] Advance and Rescinded Directives. The entries below indicate that a directive exists for the patient, but an actual copy is not included with this document. The data comes from all [place] facilities. Date Advance Directives Provider Source Dec [...] the Encounter. The data comes from all [place] treatment facilities. Date/Time Radiology Report Provider Source January 06, 2024 02:40 PM CHEST 2 VIEWS PA A ND LAT: ROSS IGLESIAS [id number] -1945 M Exm Date: JANUARY 06, 2024@14:40 Req Phys: ANTONIO AREVALO Pat Loc: [facility] (Req'g Loc) Img Loc: MAIN X-RAY Service: [place] [address] (Case [id number] COMPLETE) CHEST 2 VIEWS PA AND LAT (RAD Detailed) CPT:29569 Reason for Study: pneumonia evaluation Clinical History: IS NOT under investigation for COVID-19 or is COVID-19 negative pneumonia evaluation Responsible provider name and phone number to notify for critical findings if other than user placing the order and pager listed below: User placing orders pager: [phone] LAST CREATININE 1.2 (10/11/23) Report Status: Verified Date Reported: JANUARY 07, 2024 Date Verified: JANUARY 07, 2024 Steel Erector Apprentice E-Sig: Report: 2 View Chest x-ray Clinical history: No additional clinical history. Comparison:02/19/2023. Findings: No pulmonary edema. No focal consolidations. Stable interstitial opacities. The cardiac and mediastinal silhouettes are stable. No pleural effusions. Impression: No acute cardiopulmonary disease. READING PHYSICIAN: Daniel Ram M.D. -[id number] 01/07/2024 13:57 PDT [facility] National Teleradiology Program [phone] (For Medical Practitioner Use Only) Attention Patients / Veterans: If you have questions or concerns about these test results, please contact your ordering provider or primary care team. Primary Interpreting Staff: RADIOLOGY,OUTSIDE SERVICE, Staff Physician / RADIOLOGY,OUTSIDE SERVICE [facility] Encounter Notes: All associated encounter notes This section contains the clinical notes associated to the Encounter. Date/Time Encounter Note(s) Provider Source January 05, 2024 03:36 PM GASTROENTEROLOGY N OTE: LOCAL TITLE: GASTROENTEROLOGY CHART REVIEW STANDARD TITLE: GASTROENTEROLOGY NOTE DATE OF NOTE: JANUARY 05, 2024@15:36 ENTRY DATE: JANUARY 05, 2024@15:37:02 AUTHOR: SHEEN,AMINATA H EXP COSIGNER: URGENCY: STATUS: COMPLETED Chart review. Last colonoscopy performed on 11/01/2020 no polyps. Recommendation: - Discharge patient to home. - Given the patient's age no further colon cancer screening/surveillance is necessary. - Restart anticoagulation at next scheduled dose. Colonoscopy GAP Reminder: Recommendations are needed in the clinical reminder system following the patient's most recent colorectal cancer screening/surveillance test (Colonoscopy, Sigmoidoscopy or CT Colonography) No further average risk screening is recommended/indicated due to the patient's age. Screening for patients between 76-84 can be considered based on an assessment of the patient and his/her preferences. /johana/ CHRISTIAN ZUNIGA PHYSICIAN POLYSOM TECH Signed: 01/05/2024 15:38 AMINATA CROCKER [facility]
--- OUTSIDE RECORDS SUMMARY | 2024-02-26 09:19 | XMS_ITS | Encounter Summary ---
Author Name [facility] [place] Organization [place] Address [address] [place] [address] Care Team Providers Care Oil Truck Driver Name Role Phone ARMANDOEDUARDO DUNLAP Primary Care [...] PART A Sep 30, 2010 PART A [id number] Isaac IGLESIAS PATIENT Selected Encounter This section includes the information on record at [place] for the Encounter. Date/Time Encounter Type Encounter Description Reason Pro vider Source January 10, 2024 01:36 PM Outpatient Encounter NEUROLOGY IHE Encounter Template Text not used by [place] Plan of Treatment: Future Appointments (+ 6 [...] 20 appointments. The data comes from all [place] treatment facilities. Appointment Date/Time Appointment Type Appointme nt Facility Name January 14, 2024 09:00 AM AMBULATORY - PSYCHIATRY [facility] January 18, 2024 09:00 AM AMBULATORY - REHAB MEDICIN E [facility] January 25, 2024 05:10 PM AMBULATORY - REHAB MEDICIN E [facility] Feb 24, 2024 09:00 AM AMBULATORY - REHAB MEDICIN E [facility] Apr 10, 2024 01:00 PM AMBULATORY - REHAB MEDICIN E [facility] May 31, 2024 08:30 AM AMBULATORY - PSYCHIATRY [facility] Social History: Smoking Status (Most current) and Tobacco Use (All prior to encounter date) This section includes the most current, and the historical, smoking and tobacco- related health factors from the [place] facility where the Encounter took place. Current Smoking Status This section includes the most current smoking, or tobacco-related health factor, from the [place] facility where the Encounter took place. Date/Time Current Smoking Status Comment Facil ity Oct 11, 2023 08:00 AM VA-TOBACCO FORMER USER [facility] Tobacco Use History This section includes a history of the smoking, or tobacco-related health factors, that were collected on or before the date of the Encounter. The data comes from the [place] facility where the Encounter took place. Date/Time Smoking Status/Tobacco Use Comment F acility Oct 11, 2023 08:00 AM VA-TOBACCO QUIT 15 YRS OR MORE [facility] Aug 17, 2022 09:15 AM VA-TOBACCO FORMER USER [facility] Aug 17, 2022 09:15 AM VA-TOBACCO QUIT 15 YRS OR MORE [facility] Oct 27, 2021 09:00 AM VA-TOBACCO FORMER USER [facility] Oct 27, 2021 09:00 AM VA-TOBACCO QUIT 15 YRS OR MORE [facility] Sep 19, 2020 09:00 AM VA-TOBACCO FORMER USER [facility] Sep 19, 2020 09:00 AM VA-TOBACCO QUIT 15 YRS OR MORE [facility] Dec 20, 2018 10:09 AM VA-TOBACCO FORMER USER [facility] Dec 20, 2018 10:09 AM VA-TOBACCO QUIT 15 YRS OR MORE [facility] Dec 07, 2017 09:12 AM FORMER TOBACCO USER 7Y OR GREATE R [facility] Apr 21, 2017 08:35 AM FORMER TOBACCO USER 7Y OR GREATE R [facility] Apr 28, 2016 08:20 AM FORMER TOBACCO USER 7Y OR GREATE R [facility] January 22, 2015 10:07 AM FORMER TOBACCO USER 7Y OR GREATE R [facility] January 25, 2014 10:11 AM FORMER TOBACCO USER 7Y OR GREATE R [facility] December 30, 2011 08:00 AM FORMER TOBACCO USER 7Y OR GREATE R [facility] January 21, 2011 01:16 PM FORMER TOBACCO USE >1Y <7Y [facility] Nov 27, 2009 08:09 AM FORMER TOBACCO USE >1Y <7Y [facility] Dec 27, 2008 12:32 AM FORMER TOBACCO USE >1Y <7Y [facility] January 03, 2008 12:52 PM FORMER TOBACCO USE >1Y <7Y [facility] January 11, 2007 10:43 AM FORMER TOBACCO USE >1Y <7Y [facility] Advance Directives: All historical and current Section Date Range: From patient's date of to the date document was created. This section includes ALL of a patient's completed or amended [place] Advance and Rescinded Directives. The entries below indicate that a directive exists for the patient, but an actual copy is not included with this document. The data comes from all [place] facilities. Date Advance Directives Provider Source Dec 04, 2009 CLINICAL WARNING KAMARI CUMMINGS [facility] Radiology Reports: +/- 30 days of [...] the Encounter. The data comes from all [place] treatment facilities. Date/Time Radiology Report Provider Source January 06, 2024 02:40 PM CHEST 2 VIEWS PA A ND LAT: ROSS IGLESIAS [id number] -1945 M Exm Date: JANUARY 06, 2024@14:40 Req Phys: ANTONIO AREVALO Pat Loc: [facility] (Req'g Loc) Img Loc: MAIN X-RAY Service: [place] [address] (Case [id number] COMPLETE) CHEST 2 VIEWS PA AND LAT (RAD Detailed) CPT:22209 Reason for Study: pneumonia evaluation Clinical History: IS NOT under investigation for COVID-19 or is COVID-19 negative pneumonia evaluation Responsible provider name and phone number to notify for critical findings if other than user placing the order and pager listed below: User placing orders pager: [phone] LAST CREATININE 1.2 (10/11/23) Report Status: Verified Date Reported: JANUARY 07, 2024 Date Verified: JANUARY 07, 2024 Turnaround Engineer E-Sig: Report: 2 View Chest x-ray Clinical history: No additional clinical history. Comparison:02/19/2023. Findings: No pulmonary edema. No focal consolidations. Stable interstitial opacities. The cardiac and mediastinal silhouettes are stable. No pleural effusions. Impression: No acute cardiopulmonary disease. READING PHYSICIAN: Daniel Ram M.D. -[id number] 01/07/2024 13:57 PDT [facility] National Teleradiology Program [phone] (For Medical Practitioner Use Only) Attention Patients / Veterans: If you have questions or concerns about these test results, please contact your ordering provider or primary care team. Primary Interpreting Staff: RADIOLOGY,OUTSIDE SERVICE, Staff Physician / RADIOLOGY,OUTSIDE SERVICE [facility] Encounter Notes: All associated encounter notes This section contains the clinical notes associated to the Encounter. Date/Time Encounter Note(s) Provider Source January 10, 2024 01:36 PM REPORT OF CONTACT: LOCAL TITLE: APPOINTMENT SCHEDULING NOTE STANDARD TITLE: REPORT OF CONTACT DATE OF NOTE: JANUARY 10, 2024@13:36 ENTRY DATE: JANUARY 10, 2024@13:36:14 AUTHOR: JEFFREY GEORGE EXP COSIGNER: URGENCY: STATUS: COMPLETED Attempted to schedule Cancellation Clinic cancellation Contact attempt made to [place] 1st attempt Telephone Left message on voice mail to call back to this number [phone] Other: Appointment on 04/03/24 in [facility] needs to be rescheduled due to provider leave. Please have patient speak with Lead or Line Maintainer Section. /johana/ Jeffrey George PM&R Lead MSA Signed: 01/10/2024 13:37 JEFFREY GEORGE [facility]
--- OUTSIDE RECORDS SUMMARY | 2024-02-26 09:20 | XMS_ITS | Encounter Summary ---
Author Name [facility] Organization [facility] Address [address] [place] [address] Care Team Providers Care Process Project Engineer Name Role Phone MASHAVERÓNICA SantiagoABDELRAHMAN Primary Care [...] PART A Sep 30, 2010 PART A [id number] [phone] Isaac IGLESIAS PATIENT Selected Encounter This section includes the information on record at [place] for the Encounter. Date/Time Encounter Type Encounter Description Reason Pro vider Source January 13, 2024 08:58 AM Outpatient Encounter PULMONARY/CHEST IHE Encounter Template Text not used by [place] Plan of Treatment: Future Appointments (+ 6 months) and Future Tests (+/- 45 days) The Plan of Treatment section includes future care activities for the patient from all [place] treatmentfacilities. This section includes future appointments and future orders which are active, pending or scheduled. Future Appointments This section includes appointments that were scheduled to occur 6 months from the date of the Encounter, up to a maximum of 20 appointments. The data comes from all [place] treatment facilities. Appointment Date/Time Appointment Type Appointme nt Facility Name January 14, 2024 09:00 AM AMBULATORY - PSYCHIATRY OR [facility] January 18, 2024 09:00 AM AMBULATORY - REHAB MEDICIN E [facility] January 25, 2024 05:10 PM AMBULATORY - REHAB MEDICIN E [facility] Feb 24, 2024 09:00 AM AMBULATORY - REHAB MEDICIN E [facility] Apr 10, 2024 01:00 PM AMBULATORY - REHAB MEDICIN E [facility] May 31, 2024 08:30 AM AMBULATORY - PSYCHIATRY OR [facility] Social History: Smoking Status (Most current) and Tobacco Use (All prior to encounter date) This section includes the most current, and the historical, smoking and tobacco- related health factors from the [place] facility where the Encounter took place. Current Smoking Status This section includes the most current smoking, or tobacco-related health factor, from the [place] facility where the Encounter took place. Date/Time Current Smoking Status Comment Facil ity Oct 11, 2023 08:00 AM VA-TOBACCO FORMER USER [facility] Tobacco Use History This section includes a history of the smoking, or tobacco-related health factors, that were collected on or before the date of the Encounter. The data comes from the [place] facility where the Encounter took place. Date/Time [...] ALL of a patient's completed or amended [place] Advance and Rescinded Directives. The entries below indicate that a directive exists for the patient, but an actual copy is not included with this document. The data comes from all [place] facilities. Date Advance Directives Provider Source Dec 04, 2009 CLINICAL WARNING KAMARI [facility] Radiology Reports: +/- 30 days of [...] the Encounter. The data comes from all [place] treatment facilities. Date/Time Radiology Report Provider Source January 06, 2024 02:40 PM CHEST 2 VIEWS PA A ND LAT: ROSS IGLESIAS [id number] -1945 M Exm Date: JANUARY 06, 2024@14:40 Req Phys: ANTONIO AREVALO Loc: [facility] (Req'g Loc) Img Loc: MAIN X-RAY Service: [place] [address] (Case [id number] COMPLETE) CHEST 2 VIEWS PA AND LAT (RAD Detailed) CPT:81152 Reason for Study: pneumonia evaluation Clinical History: IS NOT under investigation for COVID-19 or is COVID-19 negative pneumonia evaluation Responsible provider name and phone number to notify for critical findings if other than user placing the order and pager listed below: User placing orders pager: [phone] LAST CREATININE 1.2 (10/11/23) Report Status: Verified Date Reported: JANUARY 07, 2024 Date Verified: JANUARY 07, 2024 Residential Plumber E-Sig: Report: 2 View Chest x-ray Clinical history: No additional clinical history. Comparison:02/19/2023. Findings: No pulmonary edema. No focal consolidations. Stable interstitial opacities. The cardiac and mediastinal silhouettes are stable. No pleural effusions. Impression: No acute cardiopulmonary disease. READING PHYSICIAN: Daniel Ram M.D. -[id number] 01/07/2024 13:57 PDT [facility] National Teleradiology Program [phone] (For Medical Practitioner Use Only) Attention Patients / Veterans: If you have questions or concerns about these test results, please contact your ordering provider or primary care team. Primary Interpreting Staff: RADIOLOGY,OUTSIDE SERVICE, Staff Physician / RADIOLOGY,OUTSIDE SERVICE [facility] Encounter Notes: All associated encounter notes This section contains the clinical notes associated to the Encounter. Date/Time Encounter Note(s) Provider Source January 13, 2024 08:58 AM REPORT OF CONTACT: LOCAL TITLE: APPOINTMENT SCHEDULING NOTE STANDARD TITLE: REPORT OF CONTACT DATE OF NOTE: JANUARY 13, 2024@08:58 ENTRY DATE: JANUARY 13, 2024@08:58:19 AUTHOR: GALILEO YANCEY COSIGNER: URGENCY: STATUS: COMPLETED Attempted to schedule Cancellation Clinic cancellation Contact attempt made to [facility] 1st attempt Telephone 2nd attempt Letter - Sent letter by regular [place] mail to address on file: ROSS IGLESIAS [phone] [place], [place] [address] Disposition order request after December Left message on voice mail to call back to this number [phone] If calls back, schedule appt for: Return to [facility] on or around ( Jul 08, 2024 ) for a total of 1 appointment(s) with pfts Activity: 01/06/2024 14:02 New Order entered by ANTONIO AREVALO (PHYSICIAN) Order Text: Return to [facility] on or around ( Jul 08, 2024 ) for a total of 1 appointment(s) with pfts /es/ GALILEO YANCEY LEAD MSA Signed: 01/13/2024 08:59 GALILEO YANCEY [facility]
--- OUTSIDE RECORDS SUMMARY | 2024-02-26 09:20 | XMS_ITS | Encounter Summary ---
Author Name [facility] [place] [facility] Address [address] [place] [address] Care Team Providers Care [employer] Senior Sergeant Name Role Phone EDUARDO PRATT Primary Care [...] PART A Sep 30, 2010 PART A [id number] Isaac IGLESIAS PATIENT Selected Encounter This section includes the information on record at [place] for the Encounter. Date/Time Encounter Type Encounter Description Reason Pro vider Source January 11, 2024 08:50 AM Outpatient Encounter ADMIN PAT ACTIVTIES (MASNONCT) IHE Encounter Template Text not used by [place] Plan of Treatment: Future Appointments (+ 6 months) and Future Tests (+/- 45 days) The Plan of Treatment section includes future care activities for the patient from all [place] treatmentfacilities. This section includes future appointments and future orders which are active, pending or scheduled. Future Appointments This section includes appointments that were scheduled to occur 6 months from the date of the Encounter, up to a maximum of 20 appointments. The data comes from all [place] treatment facilities. Appointment Date/Time Appointment Type Appointme nt Facility Name January 14, 2024 09:00 AM AMBULATORY - PSYCHIATRY [facility] January 18, 2024 09:00 AM AMBULATORY - REHAB MEDICIN E [facility] January 25, 2024 05:10 PM AMBULATORY - REHAB MEDICIN E [facility] Feb 24, 2024 09:00 AM AMBULATORY - REHAB MEDICIN E [facility] Apr 10, 2024 01:00 PM AMBULATORY - REHAB MEDICIN E [facility] May 31, 2024 08:30 AM AMBULATORY - PSYCHIATRY ME [facility] Social History: Smoking Status (Most [...] 11, 2023 08:00 AM VA-TOBACCO FORMER USER [facility] Tobacco Use History This section includes a history of the smoking, or tobacco-related health factors, that were collected on or before the date of the Encounter. The data comes from the [place] facility where the Encounter took place. Date/Time Smoking Status/Tobacco Use Comment F acility Oct 11, 2023 08:00 AM VA-TOBACCO QUIT 15 YRS OR MORE [facility] Aug 17, 2022 09:15 AM VA-TOBACCO FORMER USER [facility] Aug 17, 2022 09:15 AM VA-TOBACCO QUIT 15 YRS OR MORE [facility] Oct 27, 2021 09:00 AM VA-TOBACCO FORMER USER [facility] Oct 27, 2021 09:00 AM VA-TOBACCO QUIT 15 YRS OR MORE [facility] Sep 19, 2020 09:00 AM VA-TOBACCO FORMER USER [facility] Sep 19, 2020 09:00 AM VA-TOBACCO QUIT 15 YRS OR MORE [facility] Dec 20, 2018 10:09 AM VA-TOBACCO FORMER USER [facility] Dec 20, 2018 10:09 AM VA-TOBACCO QUIT 15 YRS OR MORE [facility] Dec 07, 2017 09:12 AM FORMER TOBACCO USER 7Y OR GREATE R [facility] Apr 21, 2017 08:35 AM FORMER TOBACCO USER 7Y OR GREATE R [facility] Apr 28, 2016 08:20 AM FORMER TOBACCO USER 7Y OR GREATE R [facility] January 22, 2015 10:07 AM FORMER TOBACCO USER 7Y OR GREATE R [facility] January 25, 2014 10:11 AM FORMER TOBACCO USER 7Y OR GREATE R [facility] December 30, 2011 08:00 AM FORMER TOBACCO USER 7Y OR GREATE R [facility] January 21, 2011 01:16 PM FORMER TOBACCO USE >1Y <7Y [facility] Nov 27, 2009 08:09 AM FORMER TOBACCO USE >1Y <7Y [facility] Dec 27, 2008 12:32 AM FORMER TOBACCO USE >1Y <7Y [facility] January 03, 2008 12:52 PM FORMER TOBACCO USE >1Y <7Y [facility] January 11, 2007 10:43 AM FORMER TOBACCO USE >1Y <7Y [facility] Advance Directives: All historical and current Section Date Range: From patient's date of to the date document was created. This section includes ALL of a patient's completed or amended [place] Advance and Rescinded Directives. The entries below indicate that a directive exists for the patient, but an actual copy is not included with this document. The data comes from all [facility]. Date Advance Directives Provider Source Dec 04, 2009 CLINICAL WARNING KAMARI [facility] Radiology Reports: +/- 30 days of [...] VIEWS PA A ND LAT: ROSS IGLESIAS [id number] -1945 M Exm Date: JANUARY 06, 2024@14:40 Req Phys: ANTONIO AREVALO Pat Loc: [facility] (Req'g Loc) Img Loc: MAIN X-RAY Service: [place] [address] (Case [id number] COMPLETE) CHEST 2 VIEWS PA AND LAT (RAD Detailed) CPT:03216 Reason for Study: pneumonia evaluation Clinical History: IS NOT under investigation for COVID-19 or is COVID-19 negative pneumonia evaluation Responsible provider name and phone number to notify for critical findings if other than user placing the order and pager listed below: User placing orders pager: [phone] LAST CREATININE 1.2 (10/11/23) Report Status: Verified Date Reported: JANUARY 07, 2024 Date Verified: JANUARY 07, 2024 Blender Helper E-Sig: Report: 2 View Chest x-ray Clinical history: No additional clinical history. Comparison:02/19/2023. Findings: No pulmonary edema. No focal consolidations. Stable interstitial opacities. The cardiac and mediastinal silhouettes are stable. No pleural effusions. Impression: No acute cardiopulmonary disease. READING PHYSICIAN: Daniel Ram M.D. -[id number] 01/07/2024 13:57 PDT [facility] National Teleradiology Program [phone] (For Medical Practitioner Use Only) Attention Patients / Veterans: If you have questions or concerns about these test results, please contact your ordering provider or primary care team. Primary Interpreting Staff: RADIOLOGY,OUTSIDE SERVICE, Staff Physician / RADIOLOGY,OUTSIDE SERVICE [facility] Encounter Notes: All associated encounter notes This section contains the clinical notes associated to the Encounter. Date/Time Encounter Note(s) Provider Source January 11, 2024 08:50 AM TELEHEALTH NOTE: LOCAL TITLE: TELEHEALTH TECHNOLOGY SCREENING (TTS) STANDARD TITLE: TELEHEALTH NOTE DATE OF NOTE: JANUARY 11, 2024@08:50 ENTRY DATE: JANUARY 11, 2024@08:50:58 AUTHOR: JEFFREY GEORGE EXP COSIGNER: URGENCY: STATUS: COMPLETED [facility] declines [facility] ([facility]) now and in the future or is not VVC appropriate. [facility] declines interest in VVC or any video appointments. /johana/ Jeffrey George PM&R Lead MSA Signed: 01/11/2024 08:51 JEFFREY GEORGE [facility]
--- OUTSIDE RECORDS SUMMARY | 2024-02-26 09:21 | XMS_ITS | Encounter Summary ---
Author Name [facility] of [facility] Affairs ([place]) Organization [facility] [place] Address [address] [place] [id number] Care Team Providers Care Slitting Machine Operator Name Role Phone EDUARDO PRATT [...] PART A Sep 30, 2010 PART A [id number] Isaac IGLESIAS PATIENT Selected Encounter This section includes the information on record at MD for the Encounter. Date/Time Encounter Type Encounter Description Reason Provider Source January 18, 2024 09:00 AM OT EVAL LOW COMPLEX 30 MIN OCCUPATIONAL THERAPY ICD-10-CM G25.0 Essential tremor RACHELE ARRINGTON IHE Encounter Template Text not used by [facility] Assessments - Encounter Diagnoses This section includes the primary and secondary diagnoses documented for the Encounter. Date/Time Primary/Secondary Diagnosis Diagnosis Name Provider Source January 18, 2024 11:17 AM PRIMARY Essential tremor RACHELE ARRINGTON [facility] Plan of Treatment: Future Appointments (+ 6 months) and Future Tests (+/- 45 days) The Plan of Treatment section includes future care activities for the patient from [facility] This section includes future appointments and future orders which are active, pending or scheduled. Future Appointments This section includes appointments that were scheduled to occur 6 months from the date of the Encounter, up to a maximum of 20 appointments. The data comes from all [facility] facilities. Appointment Date/Time Appointment Type Appointme nt Facility Name January 25, 2024 05:10 PM AMBULATORY - REHAB MEDICIN E [facility] Feb 24, 2024 09:00 AM AMBULATORY - REHAB MEDICIN [facility] Apr 10, 2024 01:00 PM AMBULATORY - REHAB MEDICIN [facility] May 31, 2024 08:30 AM AMBULATORY - PSYCHIATRY [facility] Jul 20, 2024 11:00 AM AMBULATORY - MEDICINE [facility] Jul 20, 2024 01:30 PM AMBULATORY - MEDICINE [facility] Social History: Smoking Status (Most current) and Tobacco Use (All prior to encounter date) This section includes the most current, and the historical, smoking and tobacco- related health factors from the [place] facility where the Encounter took place. Current Smoking Status This section includes the most current smoking, or tobacco-related health factor, from the [facility] where the Encounter took place. Date/Time Current Smoking Status Comment Anuja ity Oct 11, 2023 08:00 AM VA-TOBACCO FORMER USER [facility] Tobacco Use History This section includes a history of the smoking, or tobacco-related health factors, that were collected on or before the date of the Encounter. The data comes from the [facility] where the Encounter took place. Date/Time Smoking Status/Tobacco Use Comment F acility Oct 11, 2023 08:00 AM VA-TOBACCO QUIT 15 YRS OR MORE [facility] Aug 17, 2022 09:15 AM VA-TOBACCO FORMER USER [facility] Aug 17, 2022 09:15 AM VA-TOBACCO QUIT 15 YRS OR MORE [facility] Oct 27, 2021 09:00 AM VA-TOBACCO FORMER USER [facility] Oct 27, 2021 09:00 AM VA-TOBACCO QUIT 15 YRS OR MORE [facility] Sep 19, 2020 09:00 AM VA-TOBACCO FORMER USER [facility] Sep 19, 2020 09:00 AM VA-TOBACCO QUIT 15 YRS OR MORE [facility] Dec 20, 2018 10:09 AM VA-TOBACCO FORMER USER [facility] Dec 20, 2018 10:09 AM VA-TOBACCO QUIT 15 YRS OR MORE [facility] Dec 07, 2017 09:12 AM FORMER TOBACCO USER 7Y OR GREATE R [facility] Apr 21, 2017 08:35 AM FORMER TOBACCO USER 7Y OR GREATE R [facility] Apr 28, 2016 08:20 AM FORMER TOBACCO USER 7Y OR GREATE R [facility] January 22, 2015 10:07 AM FORMER TOBACCO USER 7Y OR GREATE R [facility] January 25, 2014 10:11 AM FORMER TOBACCO USER 7Y OR GREATE R [facility] December 30, 2011 08:00 AM FORMER TOBACCO USER 7Y OR GREATE R [facility] January 21, 2011 01:16 PM FORMER TOBACCO USE >1Y <7Y [facility] Nov 27, 2009 08:09 AM FORMER TOBACCO USE >1Y <7Y [facility] Dec 27, 2008 12:32 AM FORMER TOBACCO USE >1Y <7Y [facility] January 03, 2008 12:52 PM FORMER TOBACCO USE >1Y <7Y [facility] January 11, 2007 10:43 AM FORMER TOBACCO USE >1Y <7Y [facility] Advance Directives: All historical and current Section Date Range: From patient's date of to the date document was created. This section includes ALL of a patient's completed or amended MD Advance and Rescinded Directives. The entries below indicate that a directive exists for the patient, but an actual copy is not included with this document. The data comes from all [facility]. Date Advance Directives Provider Source Dec 04, 2009 CLINICAL WARNING KAMARI [facility] Radiology Reports: +/- 30 days of [...] VIEWS PA A ND LAT: ROSS IGLESIAS ALEJANDRO [id number] -1945 M Exm Date: JANUARY 06, 2024@14:40 Req Phys: ANTONIO AREVALO Pat Loc: [facility] ABBY AREVALO (Req'g Loc) Img Loc: MAIN X-RAY Service: [place] [address] (Case [id number] COMPLETE) CHEST 2 VIEWS PA AND LAT (RAD Detailed) CPT:36840 Reason for Study: pneumonia evaluation Clinical History: IS NOT under investigation for COVID-19 or is COVID-19 negative pneumonia evaluation Responsible provider name and phone number to notify for critical findings if other than user placing the order and pager listed below: User placing orders pager: [phone] LAST CREATININE 1.2 (10/11/23) Report Status: Verified Date Reported: JANUARY 07, 2024 Date Verified: JANUARY 07, 2024 Senior Contracts Administrator E-Sig: Report: 2 View Chest x-ray Clinical history: No additional clinical history. Comparison:02/19/2023. Findings: No pulmonary edema. No focal consolidations. Stable interstitial opacities. The cardiac and mediastinal silhouettes are stable. No pleural effusions. Impression: No acute cardiopulmonary disease. READING PHYSICIAN: Daniel Ram M.D. -[id number] 01/07/2024 13:57 PDT [facility] National Teleradiology Program [phone] (For Medical Practitioner Use Only) Attention Patients / Veterans: If you have questions or concerns about these test results, please contact your ordering provider or primary care team. Primary Interpreting Staff: RADIOLOGY,OUTSIDE SERVICE, Staff Physician / RADIOLOGY,OUTSIDE SERVICE [facility] Encounter Notes: All associated encounter notes This section contains the clinical notes associated to the Encounter. Date/Time Encounter Note(s) Provider Source January 18, 2024 09:00 AM OCCUPATIONAL THERAPY CONSULT: LOCAL TITLE: OCCUPATIONAL THERAPY CONSULT STANDARD TITLE: OCCUPATIONAL THERAPY CONSULT DATE OF NOTE: JANUARY 18, 2024@09:00 ENTRY DATE: JANUARY 18, 2024@09:00:55 AUTHOR: RACHELE ARRINGTON COSIGNER: URGENCY: STATUS: COMPLETED OCCUPATIONAL THERAPY EVALUATION Referring provider: ALHAJI EUBANKS Diagnosis for which patient is referred to OT: Essential Tremor(ICD-10-CM G25.0) Consult request: OT OUTPT EVAL & TREAT Encounter: 30 min low complexity evlautation 45 min self care ASSESSMENT: Per chart, Vet is a 78 year old referred to OT for bilateral essential tremor. The [place] was seen today in clinic and presented with symptoms consistent with Essential Tremor. Vet's tremors affect the following functional activities of daily living skills: Eating, gardening, fixing household items, brushing teeth, drinking liquids and holding reading materials. Vet educated on conservative management of tremors and was provided with Managing Tremors Patient Education Handout, with vet already adapting body mechanics and performing recommended lifestyle management strategies. The appears to be a good candidate for a 90 day trial of the [employer] tremor mitigation device for daily activities. PLAN: would benefit from follow up for setup of device in approximately 30 days for device issuance and device trial. Bring phone for iphone accessibility settings, assess for cierra device for both hands after trial. SHORT TERM GOALS TO BE MET BY DATE: 1. Vet will demonstrate independence and adherence for self-management HEP to safely engage in ADL/IADL tasks. 2. Vet will demonstrate proper donning/doffing of [employer] device. 3. Vet will verbalize good understanding of proper use of Cierra device within I/ADL routine. 4. Vet will verbalize understanding of plan for troubleshooting the setup of Cierra Device for increased adherence. 5. Vet will trial device 2x/day for 2 weeks with ~80% follow through based on self-report. 6. Vet will verbalize good understanding of reasons to discontinue use of Cierra device. 7. Vet will verbalize improvement in symptom management of essential tremor through implementation of conservative treatment (weighted utensils and wrist weights etc.) 75% of the time. PATIENT EDUCATION ON TREATMENT PLAN: Patient indicates readiness to learn, verbalizes understanding, agreement and satisfaction with the treatment plan. Issued: - Steel Weighted Utensil Set Product #: [id number] LogoneX - Weighted Gloves (2lbs): LogoneX - Product #: [id number] - Plastic Plate Guard Item #[id number] [employer] Cierra kIQ Tremor Mitigation Device Hand to be treated: Right Wrist size: 19 cm Tremor Task assigned: (Outstretched) Notes: [facility] device to [facility]. (For F2F visits): Signed prescription form emailed to [facility], please send form to [facility] CURRENT MEDICAL HISTORY: Osteoarthritis ([facility] [id number]) Depression ([facility] [id number]) Posttraumatic stress disorder ([facility] 79694Zcvmoqu/Glauc Suspect (ICD-9-CM 365.00) Malignant tumor of oropharynx (SCT 54559Pwncludp artery disease ([facility] 19457994) Hypertension ([facility] 91855122) Hyperlipidemia ([facility] 08473784) COPD - Chronic obstructive pulmonary disHistory of malignant neoplasm of skin excluding melanoma ([facility] 618313171) History of venous thrombosis (SCT 094782Dfjheih rhinitis ([facility] 39125220) Syncope ([facility] 126373000) Long-term current use of anticoagulant ([facility] 155362001) History of adenomatous polyp of colon (SPeripheral neuropathy ([facility] 799962112) Benign prostatic hyperplasia with outfloHypoxic ([facility] 738452811) Pulmonary hypertension ([facility] 81416365) Ex-tobacco user ([facility] 341078009) Hearing loss ([facility] 02033138) Tremor ([facility] 24488882) Exposure to potentially hazardous substaParkinsonism ([facility] 34669249) Hemifacial spasm of right facial nerve (Chronic respiratory failure ([facility] 27698815) SUBJECTIVE: 1. Hand Dominance: Right 2. Where you experience your tremors: Bilateral 3. Are you taking any medication for your tremors? No, side effects with allergies (For [facility] consideration: Pharmacologic interventions attempted will include challenge with meaningful dosages of primidone(Mysoline??) and propranolol (Inderal??), if no contraindication. 4. History of other compensatory strategies: Body mechanics Adapted Quality of Life in Essential Tremor Questionnaire (QUEST). The completed this patient reported outcome independently (or with caregiver assistance). Scorin (Never) 2 3 4 5 (Always) 1. My tremor interferes with my ability to write (for example, writing letters, completing forms). 5 2. My tremor interferes with my ability to use a typewriter or computer. NA 3. My tremor interferes with my ability to use the telephone(for example, dialing, holding the phone). 4 4. My tremor interferes with my ability to fix small things around the house (for example, change light bulbs, minor plumbing, fixing household appliances, fixing broken items). 5 5. My tremor interferes with dressing (for example, buttoning, zipping, tying shoes). 3 6. My tremor interferes with brushing or flossing my teeth. 5 7. My tremor interferes with eating (for example, bringing food to mouth, spilling). 5 8. My tremor interferes with drinking liquids (for example, bringing to mouth, spilling, pouring). 4 9. My tremor interferes with reading or holding reading material. 4 OBJECTIVE: Body Mechanics: *Position yourself close to your work *Stabilize arms by keeping them close to your body *When working at a desk or table, keep elbows/arms on surface *Use both hands if able to, such as when drinking from cup Adaptation: *Use built up, weighted, or a combination of both for writing and daily activities such as eating, drinking, and grooming *Place non-slip material around handles and hand-held objects *Wear wrists splints during moderate activity *Use non-affected hand when possible Life Style: *Create a weight lifting and resistance training program *Do strenuous activity during best times of day *Practice meditation and relaxation, reduce stress *Avoid caffeine and other stimulants *Conserve your energy, take breaks during the day *Avoid feeling rushed, plan your day Vet educated that 1lb wrist weights can be used during activities that were previously affected by essential tremor. Vet instructed to only wear wrist weights during those activities, to discontinue use of weights if skin breakdown/irritation occurs after removal of items. Vet instructed to perform skin checks of UEs after removal of items. Vet verbalized understanding of education provided on this date. 1. Nine hole pe-Hole Peg Test Right: 50.52 9-Hole Peg Test Left: 43.71 2. Lines and drawing: The lines and drawing tasks are design to assess the motor control for drawing a horizontal line and drawing a spiral shape and staying within the boundaries provided. Scoring is as follows: Definitions 0 = Normal (No instances of touching the butler line) 1 = Slightly tremulous. May cross lines occasionally 2 = Moderately tremulous or crosses lines frequently. 3 = Accomplishes the task with great difficulty. Many errors. 4 = Unable to complete drawing. Horizontal Lines: Dominant hand: - Widest line score: 2 - Medium line score: 2 - Narrowest line score: 2 - Overall interpretation: 2 Non-Dominant hand: - Widest line score: 3 - Medium line score: 3 - Narrowest line score: 3 - Overall interpretation: 3 Spiral Drawing: Dominant hand: - Widest spiral score: 2 - Narrowest line score: 2 - Overall interpretation: 2 3. Handwriting: The handwriting task involves asking the to copy This is a sample of my best handwriting, sign their name and write the date. [place] score: 2 Scoring is as follows: Definitions: 0 = Normal 1 = Mildly abnormal. Slightly untidy, tremulous 2 = Moderately abnormal. Legible, but with considerable tremor. 3 = Marked abnormal. Illegible 4 = Severely abnormal. Unable to keep pencil or pen on paper without holding hand down with other hand. 4. If prescribing the [employer] Device: [employer] Videos watched in-clinic: -Getting Started video (Setup): System Basics: [email or web address]_[email or web address] Prosthetics order placed including the following: Prescriber/OT name: Rachele Arrington [employer] kIEstephania Tremor Mitigation Device Hand to be treated: Right Wrist size: 19 cm Tremor Task assigned: (Outstretched) Notes: [facility] device to [facility] home. (For F2F visits): Signed prescription form emailed to [facility] [facility], please send form to [facility] Education using the Patient Education on Next Steps handout: Your device will be mailed to your home in ~3-4 weeks. When you receive the device, please contact the [employer] line ( ) to attach the electrodes and charge your device. Please ensure your H[employer] J[employer] Stimulator is charged before your appointment Plan for next session: 1. Issue device and instruct on the wear and care of the device using the following videos in the following order: Putting on your ThermalTherapeuticSystemsQ System: [email or web address] Calibration: https://youtu.be/[email or web address] Setting Your Stimulation: [email or web address] Rating Your Therapy: [email or web address]/[email or web address] 2. Plan to instruct on: Initial recommendation is for use 2x/day for the first 2 weeks and then as needed. The device is recommended for use 40 min prior to a desired activity that is impacted by tremor and the effects of the device are anticipated to last 90 minutes after conclusion of the stimulation. As needed means that the device could be used when the tremor severity is exacerbated. Ability to independently and safely don/doff and operate the device or have a caregiver who has demonstrated safe operation techniques. Ability to clean, care for, maintain and troubleshoot the device. Knowledge of whom to contact if the device is not operating properly including the Re[employer] . Consider assisting the with adding this phone number to their cell phone if appropriate. Refer the patient to the email they would have received inviting them to join the [employer] Patient Portal. If the patient is unable to locate the email, contact the [employer] phone number for assistance. The Patient Portal can be accessed by the and tracks the number of sessions and the Veterans perspective on how the device worked for their tremor. COGNITION: - Orientation: Oriented to self, place and situation - Attention span: Attended to full session without difficulty - Commands: Able to follow 2 step commands, requires cues - Communication: Able to make needs known - Safety Awareness: Appears intact, pt demonstrates insight to current limitations EMOTIONAL/BEHAVIORAL: Appropriate affect, Eye contact, Acknowledges others, Initiates/engages conversation, Calm/pleasant, Cooperative /johana/ RACHELE ARRINGTON Occupational Therapist Signed: 01/18/2024 11:40 RACHELE ARRINGTON [facility]
--- OUTSIDE RECORDS SUMMARY | 2024-02-26 09:21 | XMS_ITS | Encounter Summary ---
Author Name Department [place] ([place] Organization [facility] Address [address] [place] [address] Care Team Providers Care Music Researcher Name Role Phone ARMANDOEDUARDO DUNLAP Primary Care [...] PART A Sep 30, 2010 PART A [id number] Isaac IGLESIAS PATIENT Selected Encounter This section includes the information on record at [place] for the Encounter. Date/Time Encounter Type Encounter Description Reason Pro vider Source January 14, 2024 12:35 PM Outpatient Encounter DENTAL IHE Encounter Template Text not used by [place] Plan of Treatment: Future Appointments (+ 6 months) and Future Tests (+/- 45 days) The Plan of Treatment section includes future care activities for the patient from all [place] treatmentfacilities. This section includes future appointments and future orders which are active, pending or scheduled. Future Appointments This section includes appointments that were scheduled to occur 6 months from the date of the Encounter, up to a maximum of 20 appointments. The data comes from all [place] treatment facilities. Appointment Date/Time Appointment Type Appointme nt Facility Name January 18, 2024 09:00 AM AMBULATORY - REHAB MEDICIN E [facility] January 25, 2024 05:10 PM AMBULATORY - REHAB MEDICIN E [facility] Feb 24, 2024 09:00 AM AMBULATORY - REHAB MEDICIN E [facility] Apr 10, 2024 01:00 PM AMBULATORY - REHAB MEDICIN E [facility] May 31, 2024 08:30 AM AMBULATORY [place] [facility] Social History: Smoking Status (Most current) and Tobacco Use (All prior to encounter date) This section includes the most current, and the historical, smoking and tobacco- related health factors from the [place] facility where the Encounter took place. Current Smoking Status This section includes the most current smoking, or tobacco-related health factor, from the [place] facility where the Encounter took place. Date/Time Current Smoking Status Comment Facil ity Oct 11, 2023 08:00 AM VA-TOBACCO FORMER USER [facility] Tobacco Use History This section includes a history of the smoking, or tobacco-related health factors, that were collected on or before the date of the Encounter. The data comes from the [place] facility where the Encounter took place. Date/Time [...] 08:20 AM FORMER TOBACCO USER 7Y OR KATYA Gray [facility] January 22, 2015 10:07 AM FORMER TOBACCO USER 7Y OR KATYA Gray [facility] January 25, 2014 10:11 AM FORMER TOBACCO USER 7Y OR KATYA Gray [facility] December 30, 2011 08:00 AM FORMER TOBACCO USER 7Y OR KATYA Gray [facility] January [...] ALL of a patient's completed or amended [place] Advance and Rescinded Directives. The entries below indicate that a directive exists for the patient, but an actual copy is not included with this document. The data comes from all [facility]. Date Advance Directives Provider Source Dec 04, 2009 CLINICAL WARNING KAMARI CUMMINGS [facility] Radiology Reports: +/- 30 days [...] the Encounter. The data comes from all [place] treatment facilities. Date/Time Radiology Report Provider Source January 06, 2024 02:40 PM CHEST 2 VIEWS PA A ND LAT: ROSS IGLESIAS [id number] -1945 M Exm Date: JANUARY 06, 2024@14:40 Req Phys: ANTONIO AREVALO Loc: [facility] (Req'g Loc) Img Loc: MAIN X-RAY Service: [place] [address] (Case [id number] COMPLETE) CHEST 2 VIEWS PA AND LAT (RAD Detailed) CPT:18299 Reason for Study: pneumonia evaluation Clinical History: IS NOT under investigation for COVID-19 or is COVID-19 negative pneumonia evaluation Responsible provider name and phone number to notify for critical findings if other than user placing the order and pager listed below: User placing orders pager: [phone] LAST CREATININE 1.2 (10/11/23) Report Status: Verified Date Reported: JANUARY 07, 2024 Date Verified: JANUARY 07, 2024 Lower In Supervisor E-Sig: Report: 2 View Chest x-ray Clinical history: No additional clinical history. Comparison:02/19/2023. Findings: No pulmonary edema. No focal consolidations. Stable interstitial opacities. The cardiac and mediastinal silhouettes are stable. No pleural effusions. Impression: No acute cardiopulmonary disease. READING PHYSICIAN: Daniel Ram M.D. -[id number] 01/07/2024 13:57 PDT [facility] National Teleradiology Program [phone] (For Medical Practitioner Use Only) Attention Patients [...] Encounter. Date/Time Encounter Note(s) Provider Source January 14, 2024 12:35 PM REPORT OF CONTACT: LOCAL TITLE: APPOINTMENT SCHEDULING NOTE STANDARD TITLE: REPORT OF CONTACT DATE OF NOTE: JANUARY 14, 2024@12:35 ENTRY DATE: JANUARY 14, 2024@12:35:28 AUTHOR: CHAD WYNN EXP COSIGNER: URGENCY: STATUS: COMPLETED Attempted to schedule Return to clinic (RTC) Contact attempt made to [place] 1st attempt Telephone 2nd attempt Letter - Sent letter by regular [place] mail to address on file: ROSS IGLESIAS [id number] [place], [place] [address] Disposition order request after December Unable to leave voice mail If [place] calls back, schedule appt for: Return to [facility] on or around ( Sep 20, 2023 ) for a total of 1 appointment(s) 60min apt for annual exam /es/ CHAD WYNN AMSA Signed: 01/14/2024 12:42 CHAD WYNN [facility]
--- OUTSIDE RECORDS SUMMARY | 2024-02-26 09:21 | XMS_ITS | Encounter Summary ---
Author Name [facility] [place] Organization [facility] [place] [place] Address [address] [place] [address] Care Team Providers Care Heel Sander Name Role Phone EDUARDO PRATT Primary Care [...] PART A Sep 30, 2010 PART A [id number] Isaac IGLESIAS PATIENT Selected Encounter This section includes the information on record at [place] for the Encounter. Date/Time Encounter Type Encounter Description Reason Provider Source January 14, 2024 09:00 AM OFFICE O/P EST MOD 30 MIN PSYCHOGERIATRIC - INDIVIDUAL ICD-10-CM F33.8 Other recurrent depressive disorders GASTON HALEY Encounter Template Text not used by [place] Assessments - Encounter Diagnoses This section includes the primary and secondary diagnoses documented for the Encounter. Date/Time Primary/Secondary Diagnosis Diagnosis Name Provider Source January 16, 2024 03:36 PM PRIMARY Other recurrent depressive disorders GASTON HALEY [facility] January 16, 2024 03:36 PM SECONDARY Post-traumatic stress disorder, chronic GASTON HALEY [facility] Plan of Treatment: Future Appointments (+ 6 months) and Future Tests (+/- 45 days) The Plan of Treatment section includes future care activities for the [facility] [place] [facility] This section includes future appointments and future orders which are active, pending or scheduled. Future Appointments This section includes appointments that were scheduled to occur 6 months from the date of the Encounter, up to a maximum of 20 appointments. The data comes from all [facility] facilities. Appointment Date/Time Appointment Type Appointme nt Facility Name January 18, 2024 09:00 AM [facility] January 25, 2024 05:10 PM [facility] Feb 24, 2024 09:00 AM [facility]ORY [facility] Apr 10, 2024 01:00 PM [facility] May 31, 2024 08:30 AM AMBULATORY - PSYCHIATRY [facility] Social History: Smoking Status (Most current) and Tobacco Use (All prior to encounter date) This section includes the most current, and the historical, smoking and tobacco- related health factors from the [place] facility where the Encounter took place. Current Smoking Status This section includes the most current smoking, or tobacco-related health factor, from the [place] facility where the Encounter took place. Date/Time Current Smoking Status Comment Facil ity Oct 11, 2023 08:00 AM VA-TOBACCO FORMER USER [facility] Tobacco Use History This section includes a history of the smoking, or tobacco-related health factors, that were collected on or before the date of the Encounter. The data comes from the [place] facility where the Encounter took place. Date/Time [...] MEDICAL [facility]ENTER Oct 27, 2021 09:00 AM [place]-TOBACCO QUIT 15 YRS OR MORE [facility] [...] ALL of a patient's completed or amended [place] Advance and Rescinded Directives. The entries below indicate that a directive exists for the patient, but an actual copy is not included with this document. The data comes from all [facility]. Date Advance Directives Provider Source Dec 04, 2009 CLINICAL WARNING KAMARI CUMMINGS [facility] Radiology Reports: +/- 30 days [...] the Encounter. The data comes from all [place] treatment facilities. Date/Time Radiology Report Provider Source January 06, 2024 02:40 PM CHEST 2 VIEWS PA A ND LAT: ROSS IGLESIAS ALEJANDRO [id number] -[id number] M Exm Date: JANUARY 06, 2024@14:40 Req Phys: ANTONIO AREVALO Jovi Pat Loc: [facility] ABBY AREVALO (Req'g Loc) Img Loc: MAIN X-RAY Service: [place] [address] (Case [id number] COMPLETE) CHEST 2 VIEWS PA AND LAT (RAD Detailed) CPT:27786 Reason for Study: pneumonia evaluation Clinical History: [place] IS NOT under investigation for COVID-19 or is COVID-19 negative pneumonia evaluation Responsible provider name and phone number to notify for critical findings if other than user placing the order and pager listed below: User placing orders pager: [phone] LAST CREATININE 1.2 (10/11/23) Report Status: Verified Date Reported: JANUARY 07, 2024 Date Verified: JANUARY 07, 2024 Steel Grinder E-Sig: Report: 2 View Chest x-ray Clinical history: No additional clinical history. Comparison:02/19/2023. Findings: No pulmonary edema. No focal consolidations. Stable interstitial opacities. The cardiac and mediastinal silhouettes are stable. No pleural effusions. Impression: No acute cardiopulmonary disease. READING PHYSICIAN: Daniel Ram M.D. -[id number] 01/07/2024 13:57 PDT [facility] National Teleradiology Program [phone] (For Medical Practitioner Use Only) Attention Patients [...] Encounter Note(s) Provider Source January 14, 2024 04:34 PM PSYCHIATRY E & M NOTE: LOCAL TITLE: PSYCHIATRIC EVALUATION & MANAGEMENT STANDARD TITLE: PSYCHIATRY E & M NOTE DATE OF NOTE: JANUARY 14, 2024@16:34 ENTRY DATE: JANUARY 14, 2024@16:34:23 AUTHOR: GASTON HALEY COSIGNER: URGENCY: STATUS: COMPLETED PSYCHIATRY CLINIC FOLLOW-UP: Total length of session: 30 minutes, with 20 minutes spent in psychotherapy, including psychoeducation. IDENTIFICATION: ROSS IGLESIAS is a 78 y/o [employer] with a past psychiatric history significant for PTSD and unspecified depressive disorder who presents for follow-up. INTERVAL HISTORY: Met with Mr. Iglesias in clinic [id number] this morning. Elaborates that underlying mood has been fair/ [...] OPH SOLN INSTILL 1 DROP IN ACTIVE (S) BOTH EYES TWICE A DAY FOR GLAUCOMA [...] TIMES A DAY NEEDED FOOT PAIN 9) DOXYCYCLINE HYCLATE 100MG TAB TAKE ONE TABLET BY ACTIVE MOUTH TWICE A DAY FOR PNEUMONIA 10) FLUTICAS 500/SALMETEROL 50 INHL DISK 60 INHALE 1 PUFF ACTIVE BY INHALATION TWICE A DAY FOR COPD *RINSE MOUTH AFTER EACH USE* 11) FLUTICASONE PROP 50MCG 120D NASAL INHL SPRAY 2 SPRAYS ACTIVE (S) IN EACH NOSTRIL EVERY DAY FOR CONGESTION 12) GABAPENTIN 300MG CAP TAKE TWO CAPSULES BY MOUTH TWICE ACTIVE A DAY FOR NERVE PAIN IN HANDS 13) GUAIFENESIN 200MG TAB TAKE ONE TABLET BY MOUTH THREE ACTIVE TIMES A DAY NEEDED FOR PHLEGM 14) HYDROCHLOROTHIAZIDE 25MG TAB TAKE ONE TABLET BY MOUTH ACTIVE (S) EVERY DAY FOR BLOOD PRESSURE NEW STRENGTH 15) PREDNISONE 20MG TAB TAKE TWO TABLETS BY MOUTH EVERY ACTIVE DAY FOR COPD EXACERBATION 16) RIVAROXABAN 20MG TAB TAKE ONE TABLET BY MOUTH EVERY ACTIVE DAY WITH THE LARGEST MEAL OF THE DAY TO TREAT AND/OR PREVENT BLOOD CLOTS 17) SERTRALINE HCL 100MG TAB TAKE ONE AND ONE-HALF ACTIVE TABLETS BY MOUTH EVERY DAY 18) TIOTROPIUM 2.5MCG/ACTUAT 60D ORAL INHL INHALE TWO ACTIVE PUFFS BY INHALATION EVERY DAY FOR COPD ALLERGIES: PENICILLIN (May 15, 1994) SIMVASTATIN (Apr 01, 2006) LOBSTER (Jul 12, 2007) SCALLOPS (Jul 12, 2007) LISINOPRIL (Apr 03, 2008) METOPROLOL (Apr 03, 2008) FISH (Dec 04, 2009) CONTRAST MEDIA (Jul 06, 2022) ZOLPIDEM (Dec 20, 2023) TOPIRAMATE (January 03, 2024) VITALS: Blood Pressure: 100/61 (01/06/2024 13:35) Weight: 164.4 lb [74.57 kg] (01/06/2024 13:35) BMI: 27.2 MENTAL STATUS EXAM: General: Cooperative, no acute [...] Depressive Disorder ASSESSMENT: ROSS IGLESIAS is a 78 y/o [employer] with a past psychiatric history significant for PTSD and unspecified depressive disorder who presents for follow-up. Lives with his adult daughter and , the latter of whom is older and requires caregiving - endorses strong sense of purpose in being able to care for at home vs. her needing to transition to a fpc setting. Today he endorses that interim mood/ [...] treatment, and answered the questions of . [place] participated in the discussion and agreed to the treatment plan as above. Provided contact information, and crisis information, instructing [place] to call with any interim concerns. SAFETY [...] safety. /johana/ GASTON HALEY Staff Physician Signed: 01/16/2024 15:37 GASTON HALEY [facility]
--- OUTSIDE RECORDS SUMMARY | 2024-02-26 09:22 | XMS_ITS | Encounter Summary ---
Author Name [facility] [place] Organization [facility] [place] Address [address] [place] [address] Care Team Providers Care Contract Design Agent Name Role Phone ARMANDOEDUARDO DUNLAP Primary Care [...] PART A Sep 30, 2010 PART A [id number] Isaac IGLESIAS PATIENT Selected Encounter This section includes the information on record at [place] for the Encounter. Date/Time Encounter Type Encounter Description Reason Pro vider Source Feb 24, 2024 09:00 AM Outpatient Encounter OCCUPATIONAL THERAPY IHE Encounter Template Text not used by [place] Plan of Treatment: Future Appointments (+ 6 [...] from all [facility]. Appointment Date/Time Appointment Type Appointme nt Facility Name Apr 10, 2024 01:00 PM AMBULATORY - REHAB MEDICIN [facility] May 31, 2024 08:30 AM [facility] Jul 20, 2024 11:00 AM AMBULATORY - MEDICINE [facility] Jul 20, 2024 01:30 PM AMBULATORY - MEDICINE [facility] Active, Pending, and Scheduled Orders [...] from all [facility]. Test Date/Time Test Type Test Details Facility Name Apr 08, 2024 12:00 AM Laboratory - Chemistry Order COMPREHENSIVE METABOLIC PANEL+MG PLASMA SP ONCE [facility] Social History: Smoking Status (Most current) [...] 11, 2023 08:00 AM VA-TOBACCO FORMER USER [facility] Tobacco Use History This section includes a history of the smoking, or tobacco-related health factors, that were collected on or before the date of the Encounter. The data comes from the [place] facility where the Encounter took place. Date/Time Smoking Status/Tobacco Use Comment F acility Oct 11, 2023 08:00 AM VA-TOBACCO QUIT 15 YRS OR MORE [facility] Aug 17, 2022 09:15 AM VA-TOBACCO FORMER USER [facility] Aug 17, 2022 09:15 AM VA-TOBACCO QUIT 15 YRS OR MORE [facility] Oct 27, 2021 09:00 AM VA-TOBACCO FORMER USER [facility] Oct 27, 2021 09:00 AM VA-TOBACCO QUIT 15 YRS OR MORE [facility] Sep 19, 2020 09:00 AM VA-TOBACCO FORMER USER [facility] Sep 19, 2020 09:00 AM VA-TOBACCO QUIT 15 YRS OR MORE [facility] Dec 20, 2018 10:09 AM VA-TOBACCO FORMER USER [facility] Dec 20, 2018 10:09 AM VA-TOBACCO QUIT 15 YRS OR MORE [facility] Dec 07, 2017 09:12 AM FORMER TOBACCO USER 7Y OR GREATE R [facility] Apr 21, 2017 08:35 AM FORMER TOBACCO USER 7Y OR GREATE R [facility] Apr 28, 2016 08:20 AM FORMER TOBACCO USER 7Y OR GREATE R [facility] January 22, 2015 10:07 AM FORMER TOBACCO USER 7Y OR GREATE R [facility] January 25, 2014 10:11 AM FORMER TOBACCO USER 7Y OR GREATE R [facility] December 30, 2011 08:00 AM FORMER TOBACCO USER 7Y OR GREATE R [facility] January 21, 2011 01:16 PM FORMER TOBACCO USE >1Y <7Y [facility] Nov 27, 2009 08:09 AM FORMER TOBACCO USE >1Y <7Y [facility] Dec 27, 2008 12:32 AM FORMER TOBACCO USE >1Y <7Y [facility] January 03, 2008 12:52 PM FORMER TOBACCO USE >1Y <7Y [facility] January 11, 2007 10:43 AM FORMER TOBACCO USE >1Y <7Y [facility] Advance Directives: All historical and current Section Date Range: From patient's date of to the date document was created. This section includes ALL of a patient's completed or amended [place] Advance and Rescinded Directives. The entries below indicate that a directive exists for the patient, but an actual copy is not included with this document. The data comes from all [place] facilities. Date Advance Directives Provider Source Dec 04, 2009 CLINICAL WARNING KAMARI CUMMINGS [facility] Encounter Notes: All associated encounter notes This section contains the clinical notes associated to the Encounter. Date/Time Encounter Note(s) Provider Source Feb 24, 2024 11:59 AM REPORT OF CONTACT: LOCAL TITLE: APPOINTMENT SCHEDULING NOTE STANDARD TITLE: REPORT OF CONTACT DATE OF NOTE: FEB 24, 2024@11:59 ENTRY DATE: FEB 24, 2024@11:59:37 AUTHOR: JENNIFER PLUNKETT COSIGNER: URGENCY: STATUS: COMPLETED Attempted to schedule No show Contact: automated no-show letter queued to be sent Contact: Called [facility] at: If [facility] calls back, schedule appointment for: Return to [facility] OT RACHELE on or around ( Feb 22, 2024 ) for a total of 1 appointment(s) 60 F2F /johana/ JENNIFER PLUNKETT MAIL CLERK Signed: 02/24/2024 12:00 JENNIFER PLUNKETT [facility] Feb 24, 2024 11:48 AM NO SHOW NOTE: LOCAL TITLE: NO SHOW/CANCELLATION CLINIC NOTE STANDARD TITLE: NO SHOW NOTE DATE OF NOTE: FEB 24, 2024@11:48 ENTRY DATE: FEB 24, 2024@11:48:38 AUTHOR: RACHELE ARRINGTON EXP COSIGNER: URGENCY: STATUS: COMPLETED [facility] not seen for scheduled appointment due to: No Show Vet did not show for OP appt on 3R Appointment Rescheduled: No Please review patient chart and medications for renewal needs (if appropriate). /johana/ RACHELE ARRINGTON Occupational Therapist Signed: 02/24/2024 11:49 RACHELE ARRINGTON [facility]
--- OUTSIDE RECORDS SUMMARY | 2024-02-26 09:22 | XMS_ITS | Clinical Summary ---
Author Organization [facility] Address [place], [place] [address] Care Team Providers Care Police Pilot Name Role Phone Montez Danielel Primary Care Provider Unknown, Doctor Unavailable Unavailable Allergies Active Allergy Reactions Criticality Noted Date Comments Fish Containing Products Rash 06/25/2014 Lisinopril *Unknown - Follow up needed 05/08/2016 Metoprolol *Unknown - Follow up needed 05/08/2016 Unlisted Allergen (Include Detail In Comments) *Unknown - Follow up needed 05/08/2016 Lobster Penicillins Rash 06/25/2014 Scallops *Unknown - Follow up needed 05/08/2016 Simvastatin *Unknown - Follow up needed 05/08/2016 Medications Medication Sig Dispensed Refills Start Date End Date Status oxyCODONE-acetamin ophen, 5-325 mg, (PERCOCET) per tablet Take 1-2 tablets by mouth every 4 hours if needed for Pain. Max acetaminophen dose: 4000mg in 24 hrs. 30 tablet 0 06/25/2014 Active albuterol HFA 90 mcg/actuation inhaler Inhale 2 Puffs by mouth every 6 hours if needed. Active medication order composer Take 10 mg by mouth once daily. Amlodipine Besylate (1 Tab) Active polyvinyl alcohol (ARTIFICAL TEARS) 1.4 % ophthalmic solution Place into both eyes 4 times daily if needed for Dry Eyes. Active ATORVASTATIN CALCIUM (ATORVASTATIN ORAL) Take 80 mg by mouth once daily. Take one-half tablet. Active budesonide-formote rol (SYMBICORT) 160-4.5 mcg/actuation (160-4.5 mcg each actuation) inhaler Inhale 2 Puffs by mouth every 12 hours. Active buPROPion (WELLBUTRIN SR) 150 mg Sustained-Release tablet Take 150 mg by mouth 2 times daily. Active Calcium Carbonate 260 mg (650 mg) chew Take 1 tablet by mouth once daily. Active cholecalciferol (VITAMIN D3) 1,000 unit tablet Take 1,000 Units by mouth once daily. Active ibuprofen (ADVIL; MOTRIN) 800 mg tablet Take 800 mg by mouth 3 times daily if needed for Pain. Active ipratropium (ATROVENT) 17 mcg/actuation inhaler Inhale 2 Puffs by mouth every 6 hours if needed. Active latanoprost (XALATAN) 0.005 % ophthalmic solution Place 1 Drop into both eyes at bedtime. Active prednisoLONE acetate 1% PF ophthalmic suspension (CHAD AMB MIXTURE) 1 Drop 4 times daily. Into Operative eye Shake well. Discard bottle 15 days after opening. Refrigerate. Unopened bottle expires: Active zolpidem (AMBIEN) 10 mg tablet Take 5-10 mg by mouth at bedtime if needed for Sleep. Active aspirin enteric coated (ECOTRIN) 325 mg tablet Take 325 mg by mouth once daily with a meal. Active atropine (ISOPTO ATROPINE) 1 % ophthalmic solution Place 1 Drop into left eye 2 times daily. 2 mL 05/11/2016 Active ofloxacin 0.3 % ophthalmic (OCUFLOX) 0.3 % ophthalmic solution Place 1 Drop into left eye 4 times daily. 5 mL 05/11/2016 Active prednisoLONE acetate 1% ophthalmic (ECONOPRED PLUS, PRED FORTE, OMNIPRED) suspension Place 1 Drop into left eye 4 times daily. SHAKE WELL 10 mL 05/11/2016 Active Social History Tobacco Use Types Packs/Day Years Used Date Smoking Tobacco: Former Smokeless Tobacco: Former Quit: 07/26/2004 Alcohol Use Standard Drinks/Week Comments Not Asked 0 (1 standard drink = 0.6 oz pur e alcohol) Sex and Gender Information Value Date Recorded Sex Assigned at Not on file Gender Identity Not on file Sexual Orientation Not on file Obstetrics History Last Filed Vital Signs Vital Sign Reading Time Taken Comments Blood Pressure 105/61 03/05/2020 9:00 PM CDT Pulse 61 03/05/2020 9:00 PM CDT Temperature 36.9 ??C (98.4 ??F) 03/05/2020 7:48 PM CD T Respiratory Rate 18 03/05/2020 7:40 PM CDT Oxygen Saturation 90% 03/05/2020 9:00 PM CDT Inhaled Oxygen Concentration - - Weight 80.3 kg (177 lb) 03/05/2020 7:40 PM CDT Height 170.2 cm (5' 7) 03/05/2020 7:40 PM CDT Body Mass Index 27.72 03/05/2020 7:40 PM CDT Plan of Treatment Health Maintenance Due Date Last Done Comments Tdap 1956 Depression screening for age 12+ 1957 BMI (ht and wt on same day) for age 18+ 1963 Hepatitis C screening for age 18-79 1963 Tetanus booster 1965 Zoster (shingles) series for age 50+ (1 of 2) 1995 Pneumococcal series for age 65+ (1 of 1 - PCV) 2010 COVID-19 vaccine series (3 - 2022- season) 2023 06/21/2023, 08/17/2022 Influenza for age 65+ 04/30/2024 Advance Directives * Full Code (Latest Code Status on File) Date Activated Date Inactivated Comments 05/11/2016 6:04 AM 05/11/2016 3:32 PM Question Answer Comments Code Status Discussion: Not Discussed Care Teams Police Pilot Relationship Specialty Start Date End Date Montez Danielle [address] [place] [address] PCP - General Internal Medicine 06/25/14 Unknown, Doctor [address] [place] [address] Internal Medicine 06/25/14
--- OUTSIDE RECORDS SUMMARY | 2024-02-26 09:22 | XMS_ITS ---
Author Name [facility] Address [address] [place] [address] Care Team Providers Care Lumber Buyer Name Role Phone ARMANDOEDUARDO DUNLAP Primary Care [...] PART A Sep 30, 2010 PART A [id number] Isaac IGLESIAS PATIENT Selected Encounter This section includes the information on record at [place] for the Encounter. Date/Time Encounter Type Encounter Description Reason Pro vider Source Feb 25, 2024 12:30 PM Outpatient Encounter PRIMARY CARE/MEDICINE IHE Encounter Template Text not used by [place] Plan of Treatment: Future Appointments (+ 6 months) and Future Tests (+/- 45 days) The Plan of Treatment section includes future care activities for the patient from all [place] treatmentfacilities. This section includes future appointments and future orders which are active, pending or scheduled. Future Appointments This section includes appointments that were scheduled to occur 6 months from the date of the Encounter, up to a maximum of 20 appointments. The data comes from all [facility]. Appointment Date/Time Appointment Type Appointme nt Facility Name Apr 10, 2024 01:00 PM AMBULATORY - REHAB MEDICIN E [facility] May 31, 2024 08:30 AM [facility] Jul 20, 2024 11:00 AM AMBUL[facility]ORY - MEDICINE [facility] Jul 20, 2024 01:30 PM AMBULATORY - MEDICINE [facility] Active, Pending, and Scheduled Orders This section includes a listing of several types of active, pending, and scheduled orders, including clinic medications orders, diagnostic test orders, procedure orders and consult orders; where the start date of the order is 45 days before the date of the Encounter or 45 days after the date of theEncounter. The data comes from all [facility]. Test Date/Time Test Type Test Details Facility Name Apr 08, 2024 12:00 AM Laboratory - Chemistry Order COMPREHENSIVE METABOLIC PANEL+MG PLASMA SP ONCE [facility] Social History: Smoking Status (Most current) and Tobacco Use (All prior to encounter date) This section includes the most current, and the historical, smoking and tobacco- related health factors from the [place] facility where the Encounter took place. Current Smoking Status This section includes the most current smoking, or tobacco-related health factor, from the [place] facility where the Encounter took place. Date/Time Current Smoking Status Comment Anuja ity Oct 11, 2023 08:00 AM VA-TOBACCO FORMER USER [facility] Tobacco Use History This section includes a history of the smoking, or tobacco-related health factors, that were collected on or before the date of the Encounter. The data comes from the [place] facility where the Encounter took place. Date/Time Smoking Status/Tobacco Use Comment F acility Oct 11, 2023 08:00 AM VA-TOBACCO QUIT 15 YRS OR MORE [facility] Aug 17, 2022 09:15 AM VA-TOBACCO FORMER USER [facility] Aug 17, 2022 09:15 AM VA-TOBACCO QUIT 15 YRS OR MORE [facility] Oct 27, 2021 09:00 AM VA-TOBACCO FORMER USER [facility] Oct 27, 2021 09:00 AM VA-TOBACCO QUIT 15 YRS OR MORE [facility] Sep 19, 2020 09:00 AM VA-TOBACCO FORMER USER [facility] Sep 19, 2020 09:00 AM VA-TOBACCO QUIT 15 YRS OR MORE [facility] Dec 20, 2018 10:09 AM VA-TOBACCO FORMER USER [facility] Dec 20, 2018 10:09 AM VA-TOBACCO QUIT 15 YRS OR MORE [facility] Dec 07, 2017 09:12 AM FORMER TOBACCO USER 7Y OR GREATE R [facility] Apr 21, 2017 08:35 AM FORMER TOBACCO USER 7Y OR GREATE R [facility] Apr 28, 2016 08:20 AM FORMER TOBACCO USER 7Y OR GREATE R [facility] January 22, 2015 10:07 AM FORMER TOBACCO USER 7Y OR GREATE R [facility] January 25, 2014 10:11 AM FORMER TOBACCO USER 7Y OR GREATE R [facility] December 30, 2011 08:00 AM FORMER TOBACCO USER 7Y OR GREATE R [facility] January 21, 2011 01:16 PM FORMER TOBACCO USE >1Y <7Y [facility] Nov 27, 2009 08:09 AM FORMER TOBACCO USE >1Y <7Y [facility] Dec 27, 2008 12:32 AM FORMER TOBACCO USE >1Y <7Y [facility] January 03, 2008 12:52 PM FORMER TOBACCO USE >1Y <7Y [facility] January 11, 2007 10:43 AM FORMER TOBACCO USE >1Y <7Y [facility] Advance Directives: All historical and current Section Date Range: From patient's date of to the date document was created. This section includes ALL of a patient's completed or amended [place] Advance and Rescinded Directives. The entries below indicate that a directive exists for the patient, but an actual copy is not included with this document. The data comes from all [place] facilities. Date Advance Directives Provider Source Dec 04, 2009 CLINICAL WARNING [facility]AM[facility]I [facility] Encounter Notes: All associated encounter notes This section contains the clinical notes associated to the Encounter. Date/Time Encounter Note(s) Provider Source Feb 25, 2024 12:30 PM REPORT OF CONTACT: LOCAL TITLE: APPOINTMENT SCHEDULING NOTE STANDARD TITLE: REPORT OF CONTACT DATE OF NOTE: FEB 25, 2024@12:30 ENTRY DATE: FEB 25, 2024@12:30:08 AUTHOR: LORETTA RG COSIGNER: URGENCY: STATUS: COMPLETED Attempted to schedule Return to clinic (RTC) Contact attempt made to 1st attempt Letter - Sent letter by regular [place] mail to address on file: [place] [id number] [place], [place] [address] 2nd attempt Telephone Disposition order request after Feb Return to [facility] PACT FLAME 4D on or around ( Apr 08, 2024 ) for a total of 1 appointment(s) Prerequisites: Labs (NON-FASTING) Replaces previous recall, routine 60MIN APPT /es/ LORETTA RG Advanced MSA Signed: 02/25/2024 12:40 LORETTA RG [facility]
[2024-02-26] MEDS: diphenhydrAMINE 50 MG/ML inj IVP (09:43)
[2024-02-26] MEDS: HYDROCORTISONE SOD SUCCINATE 50 MG/ML inj 200 MG IVP (09:49)
[2024-02-26 09:53] LABS: Eosinophils Percent Auto 5.4 % (0.0-7.0); Hematocrit 44.9 % (37.0-53.0); Hemoglobin* 13.9 gm/dL (13.5-17.5); Lymphocytes Percent Auto 26.2 % (20-44); Mean Corpuscular HGB Conc 31 gm/dL (32-36); Mean Corpuscular Hemoglobin 29 pg (26-34); Mean Corpuscular Volume 95 fL (80-100); Monocytes Percent Auto 10.8 % (0.0-11.0); Neutrophils Percent Auto 57.6 % (42.0-72.0); Platelet Count* 148 K/uL (140-440); RDW Coefficient of Variation % 18.6 % (11.5-15.5); Red Blood Count 4.73 m/uL (4.30-5.90); White Blood Count* 3.51 K/uL (4.50-11.00)
[2024-02-26 09:57] LABS: Chloride* 100 mmol/L (96-114); Potassium* 4.4 mmol/L (3.6-5.1); Sodium* 138 mmol/L (135-149)
[2024-02-26 10:00] LABS: Anion Gap 8 mEq/L (7-15); Blood Urea Nitrogen* 15 mg/dL (7-30); Carbon Dioxide* 30 mmol/L (20-32); Creatinine* 1.2 mg/dL (0.5-1.5); Est. Creatinine Clearance* 47.43; Estimated Glomerular Filt Rate 62 ml/min
[2024-02-26 10:01] LABS: Calcium* 8.9 mg/dL (8.4-10.6); Glucose* 88 mg/dL (60-115); Magnesium* 2.2 mg/dL (1.5-2.6)
[2024-02-26 10:03] LABS: Slide Review Reflex No
[2024-02-26 10:11] LABS: NT Pro B Type NatriureticPept* 4410 pg/mL
== END 2024-02-26 12:17 | disposition home or self-care (01) ==
PROVIDERS: Emergency Provider Family Medicine
DX: R60.0 Localized edema (principal)
CPT/HCPCS: 36415; 71275; 80048; 83735; 83880; 84484; 85025; 93970; 96374; 96375; 99284; J1200; J1720; Q9967

== ENCOUNTER 2025-04-25 05:46 | Emergency (ER) | payer OTHER, SELFPAY ==
--- OUTSIDE RECORDS SUMMARY | 2024-05-08 05:00 | XMS_ITS | Encounter Summary ---
Author Name [facility] Organization [facility] Address [address] [place] [address] Care Team Providers Care Friend Of The Court Name Role Phone EDUARDO PAUL Primary Care [...] PART A Sep 30, 2010 PART A [id number] Isaac IGLESIAS PATIENT MEDICARE (WNR) MEDICARE (M) PART A Sep 30, 2010 PART A [id number] [phone] Isaac IGLESIAS PATIENT Selected Encounter This section includes the information on record at [place] for the Encounter. Date/Time Encounter Type Encounter Description Reason Provider Source May 08, 2024 10:00 AM OFF/OP EST DECEMBER X REQ PHY/QHP PRIMARY CARE/MEDICINE ICD-10-CM R60.0 Localized edema SONAM GRANT [facility] Encounter Template Text not used by [place] Assessments - Encounter Diagnoses This section includes the primary and secondary diagnoses documented for the Encounter. Date/Time Primary/Secondary Diagnosis Diagnosis Name Provider Source May 08, 2024 11:47 AM PRIMARY Localized edema SONAM GRANT [facility] May 08, 2024 11:47 AM SECONDARY Chronic obstructive pulmonary disease, unspecified SONAM GRANT [facility] May 08, 2024 11:47 AM SECONDARY Essential (primary) hypertension SONAM GRANT [facility] May 08, 2024 11:47 AM SECONDARY Heart failure, unspecified SONAM GRANT [facility] Plan of Treatment: Future Appointments (+ 6 months) and Future Tests (+/- 45 days) The Plan of Treatment section includes future care activities for the patient [facility] This section includes future appointments and future orders which are active, pending or scheduled. Future Appointments This section includes appointments that were scheduled to occur 6 months from the date of the Encounter, up to a maximum of 20 appointments. The data comes from all [facility]. Appointment Date/Time Appointment Type Appointme nt Facility Name May 30, 2024 07:20 AM [facility] May 30, 2024 09:00 AM [facility] May 31, 2024 08:30 AM [facility] [place] [facility] May 31, 2024 09:00 AM [place] [facility] May 31, 2024 09:30 AM [facility] Jul 14, 2024 08:20 AM [place] [facility] Jul 14, 2024 10:32 AM [facility] Jul 20, 2024 11:00 AM [facility] Jul 20, 2024 01:30 PM [facility] Jul 20, 2024 02:00 PM [facility] Jul 24, 2024 07:30 AM [place] [facility] Jul 28, 2024 05:00 PM AMBULATORY - REHAB MEDICIN [facility] Aug 04, 2024 07:45 AM AM[place]UL[place]ORY - NONE [place] [facility] Aug 21, 2024 08:00 AM [place]ONE [place] [facility] Aug 21, 2024 08:30 AM [facility] Aug 22, 2024 08:30 AM AMBULATORY - [facility]UROLOGY [facility] Sep 05, 2024 08:30 AM AMBULATORY - SURGERY [facility] Sep 08, 2024 11:00 AM AMBULATORY - SUR[facility]ERY [facility] Sep 19, 2024 09:00 AM [facility] Sep 27, 2024 08:30 AM AMBULATORY - PSYCHIATRY [facility] Lab Results: +/- 30 days of the encounter This section includes the Chemistry and Hematology Lab Results on record with [place] for the patient. Radiology Reports and Pathology Reports are provided separately, in subsequent sections. Lab Results This section contains the Chemistry/Hematology Results that were resulted 30 days before or 30 daysafter the date of the Encounter. Date/Time Source Result Type Result - Unit Interpretation Reference Range Specimen Type Comment May 31, 2024 09:39 AM [facility] BNP PLASMA Specimen Type: PLASMA No comment entered. Ordering Provider: YULI PAUL Report Released Date/Time: May 09, 2024 05:24 PM Reporting Lab: [facility] [id number] Performing Lab: [facility] [id number] BNP 273 pg/mL H <99 May 31, 2024 09:39 AM [facility] BASIC METABOLIC PANEL+MG PLASMA Spe cimen Type: PLASMA No comment entered. Ordering Provider: EDUARDO PAUL Report Released Date/Time: May 09, 2024 05:24 PM Reporting Lab: [facility] [phone] Performing Lab: [facility] [phone] CREATININE 1.6 mg/dL H 0.7-1.2 UREA NITROGEN 49 mg/dL H 8-26 GLUCOSE 93 mg/dL 70-100 SODIUM 139 mmol/L 136-145 POTASSIUM 3.2 mmol/L L 3.5-5.1 CHLORIDE 93 mmol/L L 98-107 CO2 35 mmol/L H 22-29 CALCIUM 9.8 mg/dL 8.4-10.2 MAGNESIUM 2.4 mg/dL 1.6-2.6 ANION GAP 11 mmol/L 5-15 .CREAT EGFR(CKD-EPI) 44 L >60 May 08, 2024 09:15 AM [facility] BNP PLASMA Specimen Type : PLASMA No comment entered. Ordering Provider: EDUARDO PAUL Report Released Date/Time: Apr 06, 2024 08:50 AM Reporting Lab: [facility] [phone] Performing Lab: [facility] [phone] BNP 745 pg/mL H <99 May 08, 2024 09:15 AM [facility] B 12 SERUM Specimen Type : SERUM No comment entered. Ordering Provider: EDUARDO PAUL Report Released Date/Time: Apr 06, 2024 09:25 AM Reporting Lab: [facility] [phone] Performing Lab: [facility] [id number] B 12 1152 pg/mL H 213-816 May 08, 2024 09:15 AM [facility] CBC BLOOD Specimen Type: BLOOD No comment entered. Ordering Provider: EDUARDO PAUL Report Released Date/Time: Apr 06, 2024 08:50 AM Reporting Lab: [facility] [phone] Performing Lab: [facility] [phone] WBC 5.4 4.0-11.0 RBC 5.08 4.60-6.20 HGB 15.0 g/dL 13.5-17.9 HCT 46.8 41-54 MCV 92.1 fL 80-100 MCH 29.5 pg 27-33 MCHC 32.1 g/dL 32.0-37.5 PLT 135 L 150-400 MPV 11.0 fL 9.1-13.0 RDW 15.2 H 11.5-14.5 IPF 3.4 0-10 .RETICULOCYTE HE 31.7 pg 28.2-36.6 May 08, 2024 09:15 AM [facility] BASIC METABOLIC PANEL+MG PLASMA Spe cimen Type: PLASMA No comment entered. Ordering Provider: EDUARDO PAUL Report Released Date/Time: Apr 06, 2024 08:50 AM Reporting Lab: [facility] [phone] Performing Lab: [facility] [address] CREATININE 1.9 mg/dL H 0.7-1.2 UREA NITROGEN 60 mg/dL H 8-26 GLUCOSE 104 mg/dL H 70-100 SODIUM 137 mmol/L 136-145 POTASSIUM 3.8 mmol/L 3.5-5.1 CHLORIDE 92 mmol/L L 98-107 CO2 32 mmol/L H 22-29 CALCIUM 10.2 mg/dL 8.4-10.2 MAGNESIUM 2.6 mg/dL 1.6-2.6 ANION GAP 13 mmol/L 5-15 .CREAT EGFR(CKD-EPI) 36 L >60 May 08, 2024 09:15 AM [facility] FOLATE SERUM Specimen Type : SERUM No comment entered. Ordering Provider: EDUARDO PAUL Report Released Date/Time: Apr 06, 2024 09:25 AM Reporting Lab: [facility] [phone] Performing Lab: [facility] [id number] FOLATE 5.4 ng/mL L >7.0 May 08, 2024 09:15 AM [facility] FERRITIN SERUM Specimen Type : SERUM No comment entered. Ordering Provider: EDUARDO PAUL Report Released Date/Time: Apr 06, 2024 09:25 AM Reporting Lab: [facility] [phone] Performing Lab: [facility] [address] FERRITIN 91.5 ng/mL 21.8-274.7 May 08, 2024 09:15 AM [facility] IRON GROUP SERUM Specimen Type : SERUM No comment entered. Ordering Provider: EDUARDO PAUL Report Released Date/Time: Apr 06, 2024 09:25 AM Reporting Lab: [facility] [address] Performing Lab: [facility] [address] IRON 75 ug/dL 65-175 TIBC,CALCULATED 379 ug/dL 250-425 FERRITIN pending IRON SATURATION 20 20-50 TRANSFERRIN 303 mg/dL 163-382 May 08, 2024 09:15 AM [facility] RETICS BLOOD Specimen Type : BLOOD No comment entered. Ordering Provider: EDUARDO PAUL Report Released Date/Time: Apr 06, 2024 09:25 AM Reporting Lab: [facility] [id number] Performing Lab: [facility] [address] ABS RETIC 0.0874 0.0300-0.1000 .RETICULOCYTE 1.72 0.6-2.0 IMMATURE RETIC 10.2 1.0-14.0 .RETICULOCYTE HE 31.7 pg 28.2-36.6 May 08, 2024 09:15 AM [facility] [employer] METHYLMA ACID, QUEST SERUM Specime n Type: SERUM Comment: Serum methylmalonic acid (MMA) levels are used to diagnose and monitor several rare inborn errors of metabolism, including methylmalonic aciduria. The enzymatic conversion of MMA to succinic acid requires vitamin B12 (adenosyl-cobalamin) as a cofactor. Serum MMA levels are also used for assessing functional vitamin B12 deficiency. Vitamin B12 is essential for neurodevelopment, particularly early in . Undiagnosed maternal vitamin B12 deficiency may be associated with adverse / outcomes, such as neural tube defects and intrauterine growth restriction. [employer] utilized Multi-Modal Decomposition (MMD) analysis to establish first and second trimester- specific MMA reference intervals in , as given below: MMA, First trimester (<13 wks gestation): 58-167 nmol/L MMA, Second trimester (13-23 wks gestation): 63-241 nmol/L This test was developed and its analytical performance characteristics have been determined by [employer]. It has not been cleared or approved by the FDA. This assay has been validated pursuant to the CLIA regulations and is used for clinical purposes. Test Performed by [employer], [employer] [facility], [address] [place] [address] Mariano Browne M.D., Ph.D., Director of Laboratories , CLIA [id number] Ordering Provider: EDUARDO PAUL Report Released Date/Time: May 08, 2024 12:08 PM Reporting Lab: [facility] [phone] Performing Lab: [address] METHYLMA ACID, QUEST 411 nmol/L H 69-390 May 08, 2024 09:15 AM [facility] HOMOCYSTEINE SERUM Specimen Type : SERUM No comment entered. Ordering Provider: EDUARDO PAUL Report Released Date/Time: May 08, 2024 12:08 PM Reporting Lab: [facility] [phone] Performing Lab: [facility] [phone] HOMOCYSTEINE 24.9 umol/L H 5.1-15.4 Vital Signs: All taken on the encounter date This section contains inpatient and outpatient Vital Signs collected on the date of the Encounter. Date/Time Temperature Pulse Blood Pressure Respiratory Rate SP02 Pain Height Weight Body Mass Index Source May 08, 2024 10:49 AM 63 154/80 18 89 163.4 27 [facility] Social History: Smoking Status (Most current) and [...] 11, 2023 08:00 AM VA-TOBACCO FORMER USER [facility] Tobacco Use History This section includes a history of the smoking, or tobacco-related health factors, that were collected on or before the date of the Encounter. The data comes from the [place] facility where the Encounter took place. Date/Time Smoking Status/Tobacco Use Comment F acility Oct 11, 2023 08:00 AM VA-TOBACCO QUIT 15 YRS OR MORE [facility] Aug 17, 2022 09:15 AM VA-TOBACCO FORMER USER [facility] Aug 17, 2022 09:15 AM VA-TOBACCO QUIT 15 YRS OR MORE [facility] Oct 27, 2021 09:00 AM VA-TOBACCO FORMER USER [facility] Oct 27, 2021 09:00 AM VA-TOBACCO QUIT 15 YRS OR MORE [facility] Sep 19, 2020 09:00 AM VA-TOBACCO FORMER USER [facility] Sep 19, 2020 09:00 AM VA-TOBACCO QUIT 15 YRS OR MORE [facility] Dec 20, 2018 10:09 AM VA-TOBACCO FORMER USER [facility] Dec 20, 2018 10:09 AM VA-TOBACCO QUIT 15 YRS OR MORE [facility] Dec 07, 2017 09:12 AM FORMER TOBACCO USER 7Y OR GREATE R [facility] Apr 21, 2017 08:35 AM FORMER TOBACCO USER 7Y OR GREATE R [facility] Apr 28, 2016 08:20 AM FORMER TOBACCO USER 7Y OR GREATE R [facility] January 22, 2015 10:07 AM FORMER TOBACCO USER 7Y OR GREATE R [facility] January 25, 2014 10:11 AM FORMER TOBACCO USER 7Y OR GREATE R [facility] December 30, 2011 08:00 AM FORMER TOBACCO USER 7Y OR GREATE R [facility] January 21, 2011 01:16 PM FORMER TOBACCO USE >1Y <7Y [facility] Nov 27, 2009 08:09 AM FORMER TOBACCO USE >1Y <7Y [facility] Dec 27, 2008 12:32 AM FORMER TOBACCO USE >1Y <7Y [facility] January 03, 2008 12:52 PM FORMER TOBACCO USE >1Y <7Y [facility] January 11, 2007 10:43 AM FORMER TOBACCO USE >1Y <7Y [facility] Advance Directives: All historical and [...] 04, 2009 CLINICAL WARNING [facility] Encounter Notes: All associated encounter notes This section contains the clinical notes associated to the Encounter. Date/Time Encounter Note(s) Provider Source May 08, 2024 11:24 AM NURSING OUTPATIENT NOTE: LOCAL TITLE: MEDICINE CLINIC NURSING RN NOTE STANDARD TITLE: NURSING OUTPATIENT NOTE DATE OF NOTE: MAY 08, 2024@11:24 ENTRY DATE: MAY 08, 2024@11:26:40 AUTHOR: SONAM GRANT COSIGNER: URGENCY: STATUS: COMPLETED MEDICINE CLINIC NURSING RN NOTE Has ADDENDA CONGESTIVE HEART FAILURE: Type of visit: Nurse Clinic Case Management ACTIVE HEART FAILURE MEDICATIONS: Diuretics: Torsemide ACTIVE MEDICATIONS: Active Outpatient Medications (including Supplies): Outpatient Medications Status 1) ALBUTEROL 90MCG (CFC-F) 200D ORAL INHL INHALE 2 PUFFS ACTIVE BY INHALATION EVERY 4 HOURS NEEDED FOR SHORTNESS OF BREATH 2) ATORVASTATIN CALCIUM 40MG TAB TAKE ONE TABLET BY ACTIVE (S) MOUTH EVERY DAY FOR CHOLESTEROL 3) CALCIUM CARBONATE 650MG (CA 260MG) TAB TAKE ONE ACTIVE TABLET BY MOUTH EVERY DAY 4) CARBOXYMETHYLCELLULOSE NA 0.25% OPH SOLN INSTILL 2 ACTIVE (S) DROPS IN OPERATIVE EYE EVERY 2 HOURS NEEDED FOR DRY EYES 5) CHOLECALCIF 25MCG (D3-1,000UNIT) TAB TAKE ONE TABLET ACTIVE (S) BY MOUTH EVERY DAY 6) CYANOCOBALAMIN 500MCG TAB TAKE ONE TABLET BY MOUTH ACTIVE EVERY DAY FOR B12 SUPPLEMENT 7) DICLOFENAC NA 1% TOP GEL APPLY 2 GRAMS TOPICALLY ACTIVE THREE TIMES A DAY NEEDED FOOT PAIN 8) FLUTICAS 500/SALMETEROL 50 INHL DISK 60 INHALE 1 PUFF ACTIVE BY INHALATION TWICE A DAY FOR COPD *RINSE MOUTH AFTER EACH USE* 9) FLUTICASONE PROP 50MCG 120D NASAL INHL SPRAY 2 SPRAYS ACTIVE (S) IN EACH NOSTRIL EVERY DAY FOR CONGESTION 10) GUAIFENESIN 200MG TAB TAKE ONE TABLET BY MOUTH THREE ACTIVE TIMES A DAY NEEDED FOR PHLEGM 11) HYDROCHLOROTHIAZIDE 25MG TAB TAKE ONE TABLET BY MOUTH ACTIVE (S) EVERY DAY FOR BLOOD PRESSURE NEW STRENGTH 12) LIDOCAINE 5% OINT APPLY MODERATE AMOUNT TOPICALLY ACTIVE THREE TIMES A DAY NEEDED FOR PAIN 13) LIDOCAINE 5% PATCH APPLY 1 PATCH TOPICALLY EVERY DAY ACTIVE NEEDED 14) RIVAROXABAN 20MG TAB TAKE ONE TABLET BY MOUTH EVERY ACTIVE DAY WITH THE LARGEST MEAL OF THE DAY TO TREAT AND/OR PREVENT BLOOD CLOTS 15) SERTRALINE HCL 100MG TAB TAKE ONE AND ONE-HALF ACTIVE TABLETS BY MOUTH EVERY DAY 16) TIOTROPIUM 2.5MCG/ACTUAT 60D ORAL INHL INHALE TWO ACTIVE PUFFS BY INHALATION EVERY DAY FOR COPD 17) TORSEMIDE 20MG TAB TAKE ONE TABLET BY MOUTH EVERY DAY ACTIVE FOR EXCESS FLUID VITALS: Blood Pressure: 154/80 (05/08/2024 10:49) Pulse: 63 (05/08/2024 10:49) Weight: 163.4 lb [74.12 kg] (05/08/2024 10:49) Dry Weight: HOME MONITORING BP- notes has been SBP 150s often, he didn't write down numbers from machine. Weight- notes has been stable/down some, notes poor appetite for several months/more Edema- notes much improved, has compression socks, but doesn't wear, does not like how tight they are. Breathing- stable, notes severe COPD, complaint with meds. SYMPTOMS OF HEART FAILURE: Dyspnea: No Edema: Yes +1 pitting lower legs, but he actually notes is much improved from 1 month ago. + pulses Orthopnea: No Fatigue: No Chest Pain: No Abdominal Bloating: No Dizziness/Lightheadedness: Yes- does have some dizziness upon standing, for years, not really changed at all with addition of torsemide. Paroxysmal Nocturnal Dyspnea: No LS clear today. No sputum/cough. Speaking full clear sentences. Is on home O2, wears overnight and for about 5 hours during the day, does not typically travel with O2. Thinks he should be above 80%. Uses 5L instead of prescribed 2-4L. EDUCATION: Participant: Patient EDUCATION SCREENING BARRIERS/SPECIAL NEEDS No Barriers Identified PREFERRED STYLE OF LEARNING: No Preference Stated Discussed the following: Encourage NO Added Salt, 2000mg Sodium Diet with 700 mg Sodium per meal maximum. Encourage consistent fluid amount per day. Reviewed medications with patient and indications for medications. Encourage regular planned exercise. Reviewed symptoms of worsening heart failure and appropriate people to contact. Educated on goal O2 and O2 settings, recommend going back to prescribed 2-4L and aiming for goal O2 around 92%, should wear O2 if 88% or below on room air. PARTICIPANT UNDERSTANDING: Verbalizes understanding of instructions. REPORTED ACTIVITY & EXERCISE, DIET: Walks at least 1 mile/per day with dog, ambulated to clinic without device. Cares for in . 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 ASSESSMENT & PLAN: Collaborated with participant(s) who are in agreement with this plan: Blood pressure/weight: Monitor BP, HR, weight, record. Trial backroom associate compression to see if tolerates better and more compliant. O2 as above. Await provider review of labs/echo results. MEDICATION CHANGES: anticipate may be a medication change d/t elevated creatinine, will await provider review, discussed with [place] and will call him with plan. DIETARY ADJUSTMENTS: Decrease frequency of ordering out M[place]ese food. /johana/ SONAM GRANT ASSEMBLER ENGINE NURSE Signed: 05/08/2024 11:49 Receipt Acknowledged By: 05/08/2024 11:57 /johana/ Toney Paul APRN, FRANCHISE CONSULTANT Family Nurse Practitioner 05/09/2024 ADDENDUM STATUS: COMPLETED HTN Assess for Elevated BP>=140/90: Comment: Potential medication change discussed with pcp The patient was counseled on the importance of regular exercise and/or physical activity in the control of blood pressure. The patient was counseled on the importance of diet and weight loss/ control in the regulation of blood pressure. The patient was educated on the importance of taking prescribed therapy for hypertension. /johana/ SONAM GRANT RN STAFF NURSE Signed: 05/09/2024 09:39 05/10/2024 ADDENDUM STATUS: COMPLETED Attempted to reach x2 today, left VM, awaiting return call/will try again tomorrow. /johana/ SONAM GRANT RN STAFF NURSE Signed: 05/10/2024 13:47 SONAM GRANT [facility]
--- OUTSIDE RECORDS SUMMARY | 2024-05-30 04:00 | XMS_ITS | Encounter Summary ---
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 Feb 26, 2025 Admin Route/Site: INTRAMUSCULAR/LEFT DELTOID Dosage: 0.5mL Vaccine Information Statement(s): INFLUENZA(FLU) VACC(INACTIVATED OR RECOMBINANT)VIS Apr 04, 2021 ([place]) Order By: Policy Administered By: Kristin Keys The Influenza Vaccine Information Statement (VIS) was reviewed with the patient/caregiver which lists the benefits and risks of the vaccine and the risks of not receiving the Influenza vaccine. The patient/caregiver denied any prior severe reaction to this vaccine or its components or a severe allergic reaction, such as anaphylaxis, to any vaccine or any injectable therapy. The patient/caregiver gave verbal consent to receive the vaccine. COVID-19 Immunization: Pfizer Monovalent (Comirnaty) Administered: COVID-19 (PFIZER), MRNA, LNP-S, PF, CHERYL-SUCROSE, 30 MCG/0.3 ML (AGES 12+ YEARS) Date Administered: May 30, 2024 09:00 Personalization Specialist: [employer] Lot: [id number] Exp Date: Nov 30, 2024 [facility]: [phone] Admin Route/Site: INTRAMUSCULAR/LEFT DELTOID Dosage: 0.3mL Vaccine Information Statement(s): COVID-19 MRNA VACCINE (12+ YRS) VACCINE VIS Jun 17, 2023 ([place]) Order By: Policy Administered By: Kristin Keys Vaccine administered without complications. /johana/ KRISTIN A LITTLE, NURSING CONSULTANT Licensed Practical Nurse Signed: 05/30/2024 09:15 KRISTIN KEYS [facility]
--- OUTSIDE RECORDS SUMMARY | 2024-05-31 03:30 | XMS_ITS | Encounter Summary ---
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 Date/Time Encounter Type Encounter Description Reason Provider Source May 31, 2024 08:30 AM OFFICE O/P EST MOD 30 MIN PSYCHOGERIATRIC - INDIVIDUAL ICD-10-CM F33.8 Other recurrent depressive disorders HALEY,PETER B IHE Encounter Template Text not used by [place] Assessments - Encounter Diagnoses This section includes the primary and secondary diagnoses documented for the Encounter. Date/Time Primary/Secondary Diagnosis Diagnosis Name Provider Source Jun 04, 2024 11:45 AM PRIMARY Other recurrent depressive disorders GASTON HALEY [facility] Jun 04, 2024 11:45 AM SECONDARY Post-traumatic stress disorder, chronic HALEYGASTON GIBBONS [facility] Plan of Treatment: Future Appointments (+ 6 months) and Future Tests (+/- 45 days) The Plan of Treatment section includes future care activities for the patient [facility] [place] [facility] This section includes future appointments and future orders which are active, pending or scheduled. Future Appointments This section includes appointments that were scheduled to occur 6 months from the date of the Encounter, up to a maximum of 20 appointments. The data comes from all [place] treatment facilities. Appointment Date/Time Appointment Type Appointme nt Facility Name Jul 14, 2024 08:20 AM [facility] Jul 14, 2024 10:32 AM [facility] Jul 20, 2024 11:00 AM [facility] Jul 20, 2024 01:30 PM [facility] Jul 20, 2024 02:00 PM [facility] Jul 24, 2024 07:30 AM AM[facility]ATORY [facility] Jul 28, 2024 05:00 PM AMBULATORY - REHAB MEDICIN [facility] Aug 04, 2024 07:45 AM [facility] Aug 21, 2024 08:00 AM [facility] [place] [facility] Aug 21, 2024 08:30 AM [facility] Aug 22, 2024 08:30 AM [facility] Sep 05, 2024 08:30 AM [facility] Sep 08, 2024 11:00 AM AM[facility]ATORY [facility] Sep 19, 2024 09:00 AM [facility] Sep 27, 2024 08:30 AM [facility] Sep 27, 2024 10:00 AM [facility] Oct 05, 2024 07:00 AM [facility] NONE [facility] [facility] Oct 05, 2024 08:00 AM AMBULATORY - MEDICINE [facility] Oct 24, 2024 07:45 AM AM[facility]UL[facility]ORY - NONE [place] [facility] Nov 10, 2024 09:00 AM AMBULATORY - NONE [facility] Lab Results: +/- 30 days of [...] Type Comment May 31, 2024 09:39 AM [facility] BNP PLASMA Specimen Type: PLASMA No comment entered. Ordering Provider: YULI PRATT Report Released Date/Time: May 09, 2024 05:24 PM Reporting Lab: [facility] [address] Performing Lab: [facility] [address] BNP 273 pg/mL H <99 May 31, 2024 09:39 AM [facility] BASIC METABOLIC PANEL+MG PLASMA Spe cimen Type: PLASMA No comment entered. Ordering Provider: EDUARDO PRATT Report Released Date/Time: May 09, 2024 05:24 PM Reporting Lab: [facility] [address] Performing Lab: [facility] [address] CREATININE 1.6 mg/dL H 0.7-1.2 UREA NITROGEN 49 mg/dL H 8-26 GLUCOSE 93 mg/dL 70-100 SODIUM 139 mmol/L 136-145 POTASSIUM 3.2 mmol/L L 3.5-5.1 CHLORIDE 93 mmol/L L 98-107 CO2 35 mmol/L H 22-29 CALCIUM 9.8 mg/dL 8.4-10.2 MAGNESIUM 2.4 mg/dL 1.6-2.6 ANION GAP 11 mmol/L 5-15 .CREAT EGFR(CKD-EPI) 44 L >60 May 08, 2024 09:15 AM [facility] BNP PLASMA Specimen Type : PLASMA No comment entered. Ordering Provider: EDUARDO PRATT Report Released Date/Time: Apr 06, 2024 08:50 AM Reporting Lab: [facility] [address] Performing Lab: [facility] [address] BNP 745 pg/mL H <99 May 08, 2024 09:15 AM [facility] BASIC METABOLIC PANEL+MG PLASMA Spe cimen Type: PLASMA No comment entered. Ordering Provider: EDUARDO PRATT Report Released Date/Time: Apr 06, 2024 08:50 AM Reporting Lab: [facility] [address] Performing Lab: [facility] [address] CREATININE 1.9 mg/dL H 0.7-1.2 UREA NITROGEN 60 mg/dL H 8-26 GLUCOSE 104 mg/dL H 70-100 SODIUM 137 mmol/L 136-145 POTASSIUM 3.8 mmol/L 3.5-5.1 CHLORIDE 92 mmol/L L 98-107 CO2 32 mmol/L H 22-29 CALCIUM 10.2 mg/dL 8.4-10.2 MAGNESIUM 2.6 mg/dL 1.6-2.6 ANION GAP 13 mmol/L 5-15 .CREAT EGFR(CKD-EPI) 36 L >60 May 08, 2024 09:15 AM [facility] FOLATE SERUM Specimen Type : SERUM No comment entered. Ordering Provider: EDUARDO PRATT Report Released Date/Time: Apr 06, 2024 09:25 AM Reporting Lab: [facility] [address] Performing Lab: [facility] [address] FOLATE 5.4 ng/mL L >7.0 May 08, 2024 09:15 AM [facility] CBC BLOOD Specimen Type: BLOOD No comment entered. Ordering Provider: EDUARDO PRATT Report Released Date/Time: Apr 06, 2024 08:50 AM Reporting Lab: [facility] [address] Performing Lab: [facility] [address] WBC 5.4 4.0-11.0 RBC 5.08 4.60-6.20 HGB 15.0 g/dL 13.5-17.9 HCT 46.8 41-54 MCV 92.1 fL 80-100 MCH 29.5 pg 27-33 MCHC 32.1 g/dL 32.0-37.5 PLT 135 L 150-400 MPV 11.0 fL 9.1-13.0 RDW 15.2 H 11.5-14.5 IPF 3.4 0-10 .RETICULOCYTE HE 31.7 pg 28.2-36.6 May 08, 2024 09:15 AM [facility] B 12 SERUM Specimen Type : SERUM No comment entered. Ordering Provider: EDUARDO PRATT Report Released Date/Time: Apr 06, 2024 09:25 AM Reporting Lab: [facility] [address] Performing Lab: [facility] [address] B 12 1152 pg/mL H 213-816 May 08, 2024 09:15 AM [facility] IRON GROUP SERUM Specimen Type : SERUM No comment entered. Ordering Provider: EDUARDO PRATT Report Released Date/Time: Apr 06, 2024 09:25 AM Reporting Lab: [facility] [address] Performing Lab: [facility] [address] IRON 75 ug/dL 65-175 TIBC,CALCULATED 379 ug/dL 250-425 FERRITIN pending IRON SATURATION 20 20-50 TRANSFERRIN 303 mg/dL 163-382 May 08, 2024 09:15 AM [facility] FERRITIN SERUM Specimen Type : SERUM No comment entered. Ordering Provider: EDUARDO PRATT Report Released Date/Time: Apr 06, 2024 09:25 AM Reporting Lab: [facility] [address] Performing Lab: [facility] [address] FERRITIN 91.5 ng/mL 21.8-274.7 May 08, 2024 09:15 AM [facility] RETICS BLOOD Specimen Type : BLOOD No comment entered. Ordering Provider: EDUARDO PRATT Report Released Date/Time: Apr 06, 2024 09:25 AM Reporting Lab: [facility] [address] Performing Lab: [facility] [address] ABS RETIC 0.0874 0.0300-0.1000 .RETICULOCYTE 1.72 0.6-2.0 IMMATURE RETIC 10.2 1.0-14.0 .RETICULOCYTE HE 31.7 pg 28.2-36.6 May 08, 2024 09:15 AM [facility] METHYLMA ACID, QUEST SERUM Specime n Type: [...] neural tube defects and intrauterine growth restriction. [facility] utilized Multi-Modal Decomposition (MMD) analysis to establish first and second trimester- specific MMA reference intervals in , as given below: MMA, First trimester (<13 wks gestation): 58-167 nmol/L MMA, Second trimester (13-23 wks gestation): 63-241 nmol/L This test was developed and its analytical performance characteristics have been determined by [facility]. It has not been cleared or approved by the FDA. This assay has been validated pursuant to the CLIA regulations and is used for clinical purposes. Test Performed by [facility], [facility], [address] [place] [address] Mariano Browne M.D., Ph.D., Director of Laboratories , CLIA [id number] Ordering Provider: EDUARDO PRATT Report Released Date/Time: May 08, 2024 12:08 PM Reporting Lab: [facility] [address] Performing Lab: [address] METHYLMA ACID, QUEST 411 nmol/L H 69-390 May 08, 2024 09:15 AM [facility] HOMOCYSTEINE SERUM Specimen Type : SERUM No comment entered. Ordering Provider: EDUARDO PRATT Report Released Date/Time: May 08, 2024 12:08 PM Reporting Lab: [facility] [address] Performing Lab: [facility] [address] HOMOCYSTEINE 24.9 umol/L H 5.1-15.4 Vital Signs: All taken on the encounter date This section contains inpatient and outpatient Vital Signs collected on the date of the Encounter. Date/Time Temperature Pulse Blood Pressure Respiratory Rate SP02 Pain Height Weight Body Mass Index Source May 31, 2024 10:17 AM 61 128/75 92 [facility] May 31, 2024 09:57 AM 73 122/77 [facility] Social History: Smoking Status (Most current) and Tobacco Use (All prior to encounter date) This section includes the most current, and the historical, smoking and tobacco- related health factors from the [place] facility where the Encounter took place. Current Smoking Status This section includes the most current smoking, or tobacco-related health factor, from the [place] facility where the Encounter took place. Date/Time Current Smoking Status Comment Facil ity Oct 11, 2023 08:00 AM VA-TOBACCO FORMER USER [facility] Tobacco Use History This section includes a history of the smoking, or tobacco-related health factors, that were collected on or before the date of the Encounter. The data comes from the [place] facility where the Encounter took place. Date/Time Smoking Status/Tobacco Use Comment F acility Oct 11, 2023 08:00 AM VA-TOBACCO QUIT 15 YRS OR MORE [facility] Aug 17, 2022 09:15 AM VA-TOBACCO FORMER USER [facility] Aug 17, 2022 09:15 AM VA-TOBACCO QUIT 15 YRS OR MORE [facility] Oct 27, 2021 09:00 AM VA-TOBACCO FORMER USER [facility] Oct 27, 2021 09:00 AM VA-TOBACCO QUIT 15 YRS OR MORE [facility] Sep 19, 2020 09:00 AM VA-TOBACCO FORMER USER [facility] Sep 19, 2020 09:00 AM VA-TOBACCO QUIT 15 YRS OR MORE [facility] Dec 20, 2018 10:09 AM VA-TOBACCO FORMER USER [facility] Dec 20, 2018 10:09 AM VA-TOBACCO QUIT 15 YRS OR MORE [facility] Dec 07, 2017 09:12 AM FORMER TOBACCO USER 7Y OR GREATE R [facility] Apr 21, 2017 08:35 AM FORMER TOBACCO USER 7Y OR GREATE R [facility] Apr 28, 2016 08:20 AM FORMER TOBACCO USER 7Y OR GREATE R [facility] January 22, 2015 10:07 AM FORMER TOBACCO USER 7Y OR GREATE R [facility] January 25, 2014 10:11 AM FORMER TOBACCO USER 7Y OR GREATE R [facility] December 30, 2011 08:00 AM FORMER TOBACCO USER 7Y OR GREATE R [facility] January 21, 2011 01:16 PM FORMER TOBACCO USE >1Y <7Y [facility] Nov 27, 2009 08:09 AM FORMER TOBACCO USE >1Y <7Y [facility] Dec 27, 2008 12:32 AM FORMER TOBACCO USE >1Y <7Y [facility] January 03, 2008 12:52 PM FORMER TOBACCO USE >1Y <7Y [facility] January 11, 2007 10:43 AM FORMER TOBACCO USE >1Y <7Y [facility] Advance Directives: All historical and current Section Date Range: From patient's date of to the date document was created. This section includes ALL of a patient's completed or amended [place] Advance and Rescinded Directives. The entries below indicate that a directive exists for the patient, but an actual copy is not included with this document. The data comes from all [place] facilities. Date Advance Directives Provider Source Dec 04, 2009 CLINICAL WARNING KAMARI CUMMINGS [facility] Encounter Notes: All associated encounter notes This section contains the clinical notes associated to the Encounter. Date/Time Encounter Note(s) Provider Source May 31, 2024 11:26 AM REPORT OF CONTACT: LOCAL TITLE: APPOINTMENT SCHEDULING NOTE STANDARD TITLE: REPORT OF CONTACT DATE OF NOTE: MAY 31, 2024@11:26 ENTRY DATE: MAY 31, 2024@11:26:59 AUTHOR: KATHIE ROMAN COSIGNER: URGENCY: STATUS: COMPLETED APPOINTMENT SCHEDULING NOTE Has ADDENDA Attempted to schedule Return to clinic (RTC) Left [facility] for pt to call [phone]. Sent letter. /johana/ KATHIE ROMAN INVESTIGATIONS MANAGER Signed: 05/31/2024 11:27 06/01/2024 ADDENDUM STATUS: COMPLETED 3rd-Called to (re)schedule appointment with provider. No answer, LVM to call ( ). /johana/ VANESSA SCHULTE Signed: 06/01/2024 10:03 06/02/2024 ADDENDUM STATUS: COMPLETED 4th Attempt- Called to (re)schedule appointment with provider. No answer, LVM to call [phone]. No further attempts will be made to contact [place]. /johana/ KATHIE ROMAN INVESTIGATIONS MANAGER Signed: 06/02/2024 10:27 KATHIE ROMAN [facility] May 31, 2024 08:30 AM PSYCHIATRY E & M NOTE: LOCAL TITLE: PSYCHIATRIC EVALUATION & MANAGEMENT STANDARD TITLE: PSYCHIATRY E & M NOTE DATE OF NOTE: MAY 31, 2024@08:30 ENTRY DATE: JUN 03, 2024@20:46:25 AUTHOR: GASTON HALEY EXP COSIGNER: URGENCY: STATUS: COMPLETED PSYCHIATRY CLINIC FOLLOW-UP: Total length of session: 30 minutes, with 20 minutes spent in psychotherapy, including psychoeducation. IDENTIFICATION: ROSS IGLESIAS is a 78 y/o [employer] with a past psychiatric history significant for PTSD and unspecified depressive disorder who presents for follow-up. INTERVAL HISTORY: Met with Mr. Iglesias in clinic [id number] this morning. Elaborates health stressors and overall deterioration in his mood, stating I just keep getting more and more depressed. Does deny marked depressive severity, anxious acuity, AVH or SI/HI. Elaborates extended ruminations on topics pertaining to his service in [place], including guilt to have been one that survived - provided supportive/ reflective listening and perspective taking as he shared these recollections/ thoughts. Was open/ interested in further sertraline titration - after reviewing risks/ benefits/ alternatives agreed to increase dose to 200 mg daily. CURRENT MEDICATIONS: Active Outpatient Medications (excluding Supplies): [...] TOP GEL APPLY 2 GRAMS TOPICALLY ACTIVE (S) THREE TIMES A DAY NEEDED FOOT PAIN 8) FLUTICAS 500/SALMETEROL 50 INHL DISK 60 INHALE 1 PUFF ACTIVE (S) BY INHALATION TWICE A DAY FOR COPD *RINSE MOUTH AFTER EACH USE* 9) FLUTICASONE PROP 50MCG 120D NASAL INHL SPRAY 2 SPRAYS ACTIVE (S) IN EACH NOSTRIL EVERY DAY FOR CONGESTION 10) GABAPENTIN 600MG TAB TAKE ONE TABLET BY MOUTH TWICE A ACTIVE DAY FOR PAIN AND NUMBNESS 11) LIDOCAINE 5% OINT APPLY MODERATE AMOUNT TOPICALLY ACTIVE (S) THREE TIMES A DAY NEEDED FOR PAIN 12) LIDOCAINE 5% PATCH APPLY 1 PATCH TOPICALLY EVERY DAY ACTIVE (S) NEEDED 13) POTASSIUM CL 20MEQ SA TAB (DISPERSIBLE) TAKE ONE ACTIVE TABLET BY MOUTH EVERY DAY FOR POTASSIUM SUPPLEMENT 14) RIVAROXABAN 20MG TAB TAKE ONE TABLET BY MOUTH EVERY ACTIVE DAY WITH THE LARGEST MEAL OF THE DAY TO TREAT AND/OR PREVENT BLOOD CLOTS 15) SERTRALINE HCL 100MG TAB TAKE ONE AND ONE-HALF ACTIVE TABLETS BY MOUTH EVERY DAY 16) TELMISARTAN 20MG TAB TAKE ONE TABLET BY MOUTH EVERY ACTIVE DAY FOR BLOOD PRESSURE 17) TIOTROPIUM 2.5MCG/ACTUAT 60D ORAL INHL INHALE TWO ACTIVE PUFFS BY INHALATION EVERY DAY FOR COPD 18) TORSEMIDE 20MG TAB TAKE ONE TABLET BY MOUTH EVERY DAY ACTIVE (S) FOR EXCESS FLUID 19) VANICREAM TOP CREAM APPLY THIN LAYER TOPICALLY ACTIVE DIRECTED FOR DRY SKIN ALLERGIES: PENICILLIN (May 15, 1994) SIMVASTATIN (Apr 01, 2006) LOBSTER (Jul 12, 2007) SCALLOPS (Jul 12, 2007) LISINOPRIL (Apr 03, 2008) METOPROLOL (Apr 03, 2008) FISH (Dec 04, 2009) CONTRAST MEDIA (Jul 06, 2022) ZOLPIDEM (Dec 20, 2023) TOPIRAMATE (January 03, 2024) VITALS: Blood Pressure: 128/75 (05/31/2024 10:17) Weight: 160.6 lb [72.85 kg] (05/30/2024 08:47) BMI: 26.8 MENTAL STATUS EXAM: General: Cooperative, no acute distress. Speech: Regular rate and rhythm, normal volume. Psychomotor: No tics, tremors or adventitious movements. Gait: Walks independently. Mood: More and more depressed. Affect: Reserved, at times tearful. Thought Process: Linear, logical, goal-oriented. Thought Content: [...] is older and requires caregiving - endorses sense of purpose in being able to care for at home vs. her needing to transition to a care home setting. Today he endorses that interim mood/ trauma symptoms have been gradually worsening, was interested in further medication adjustment. Agreed to increase sertraline to 200 mg daily. No additional recommendations, no acute safety concerns - treatment planning as below. PLAN: Medications: Increase sertraline to 200 mg daily. Return to Clinic: Four months or sooner PRN. INFORMED MED CONSENT & COLLABORATIVE DECISION MAKING: We have discussed the risks/ benefits/ side effects of above treatment plan including alternative treatments and no treatment, and answered the questions of . [place] participated in the discussion and agreed to the treatment plan as above. Provided contact information, and crisis information, instructing Ben Franklin to call with any interim concerns. SAFETY [...] safety. /johana/ GASTON HALEY Staff Physician Signed: 06/04/2024 19:58 GASTON HALEY [facility]
--- OUTSIDE RECORDS SUMMARY | 2024-05-31 05:20 | XMS_ITS | Encounter Summary ---
Author Name [facility] [place] [facility] [place] [facility] [place] [facility] [place] Address [address] [place] [address] Care Team Providers Care Slag Worker Name Role Phone EDUARDO PAUL Primary Care [...] PART A Sep 30, 2010 PART A [id number] Isaac IGLESIAS PATIENT MEDICARE (WNR) MEDICARE (M) PART A Sep 30, 2010 PART A [id number] Isaac IGLESIAS PATIENT Selected Encounter This section includes the information on record at [place] for the Encounter. Date/Time Encounter Type Encounter Description Reason Provider Source May 31, 2024 10:20 AM OFF/OP EST DECEMBER X REQ PHY/QHP PRIMARY CARE/MEDICINE ICD-10-CM I10 Essential (primary) hypertension MIGUEL ANGEL GRANT Encounter Template Text not used by [place] Assessments - Encounter Diagnoses This section includes the primary and secondary diagnoses documented for the Encounter. Date/Time Primary/Secondary Diagnosis Diagnosis Name Provider Source May 31, 2024 11:51 AM PRIMARY Essential (primary) hypertension MIGUEL ANGEL GRANT [facility] May 31, 2024 11:51 AM SECONDARY Polyneuropathy, unspecified MIGUEL ANGEL GRANT [facility] May 31, 2024 11:51 AM SECONDARY Pulmonary fibrosis, unspecified MIGUEL ANGEL GRANT [facility] Plan of Treatment: Future Appointments (+ 6 months) and Future Tests (+/- 45 days) The Plan of Treatment section includes future care activities for the patient from all [place] [facility]. This section includes future appointments and future orders which are active, pending or scheduled. Future Appointments This section includes appointments that were scheduled to occur 6 months from the date of the Encounter, up to a maximum of 20 appointments. The data comes from all [place] treatment facilities. Appointment Date/Time Appointment Type Appointme nt Facility Name Jul 14, 2024 08:20 AM AMBULATORY - SURGERY [facility] Jul 14, 2024 10:32 AM [facility] Jul 20, 2024 11:00 AM [facility] Jul 20, 2024 01:30 PM [facility] Jul 20, 2024 02:00 PM [facility] Jul 24, 2024 07:30 AM AMBULATORY - SURGERY [facility] Jul 28, 2024 05:00 PM AMBULATORY - REHAB MED[facility]IN [facility] Aug 04, 2024 07:45 AM [facility] Aug 21, 2024 08:00 AM [facility]ONE [facility] Aug 21, 2024 08:30 AM [facility] Aug 22, 2024 08:30 AM [facility] [place] [facility] Sep 05, 2024 08:30 AM AMBULATORY - SURGERY [facility] Sep 08, 2024 11:00 AM AMBULATORY - SURGERY [facility] Sep 19, 2024 09:00 AM [facility] Sep 27, 2024 08:30 AM [facility] Sep 27, 2024 10:00 AM [facility] Oct 05, 2024 07:00 AM [facility] Oct 05, 2024 08:00 AM AMBULATORY - MEDICINE [facility] Oct 24, 2024 07:45 AM [facility]ONE [facility] Nov 10, 2024 09:00 AM [facility] Lab Results: +/- 30 days of the [...] Type Comment May 31, 2024 09:[address] [facility] BNP PLASMA Specimen Type: PLASMA No comment entered. Ordering Provider: YULI PAUL Report Released Date/Time: May 09, 2024 05:24 PM Reporting Lab: [facility] [id number] Performing Lab: [facility] [id number] BNP 273 pg/mL H <99 May 31, 2024 09:[address] [facility] BASIC METABOLIC PANEL+MG PLASMA Spe cimen Type: PLASMA No comment entered. Ordering Provider: EDUARDO PAUL Report Released Date/Time: May 09, 2024 05:24 PM Reporting Lab: [facility] [id number] Performing Lab: [facility] [id number] CREATININE 1.6 mg/dL H 0.7-1.2 UREA NITROGEN 49 mg/dL H 8-26 GLUCOSE 93 mg/dL 70-100 SODIUM 139 mmol/L 136-145 POTASSIUM 3.2 mmol/L L 3.5-5.1 CHLORIDE 93 mmol/L L 98-107 CO2 35 mmol/L H 22-29 CALCIUM 9.8 mg/dL 8.4-10.2 MAGNESIUM 2.4 mg/dL 1.6-2.6 ANION GAP 11 mmol/L 5-15 .CREAT EGFR(CKD-EPI) 44 L >60 May 08, 2024 09:[address] [facility] BNP PLASMA Specimen Type : PLASMA No comment entered. Ordering Provider: EDUARDO PAUL Report Released Date/Time: Apr 06, 2024 08:50 AM Reporting Lab: [facility] [phone] Performing Lab: [facility] [phone] BNP 745 pg/mL H <99 May 08, 2024 09:[address] [facility] BASIC METABOLIC PANEL+MG PLASMA Spe cimen Type: PLASMA No comment entered. Ordering Provider: EDUARDO PAUL Report Released Date/Time: Apr 06, 2024 08:50 AM Reporting Lab: [facility] [phone] Performing Lab: [facility] [phone] CREATININE 1.9 mg/dL H 0.7-1.2 UREA NITROGEN 60 mg/dL H 8-26 GLUCOSE 104 mg/dL H 70-100 SODIUM 137 mmol/L 136-145 POTASSIUM 3.8 mmol/L 3.5-5.1 CHLORIDE 92 mmol/L L 98-107 CO2 32 mmol/L H 22-29 CALCIUM 10.2 mg/dL 8.4-10.2 MAGNESIUM 2.6 mg/dL 1.6-2.6 ANION GAP 13 mmol/L 5-15 .CREAT EGFR(CKD-EPI) 36 L >60 May 08, 2024 09:[address] [facility] B 12 SERUM Specimen Type : SERUM No comment entered. Ordering Provider: EDUARDO PAUL Report Released Date/Time: Apr 06, 2024 09:25 AM Reporting Lab: [facility] [phone] Performing Lab: [facility] [phone] B 12 1152 pg/mL H 213-816 May 08, 2024 09:[address] [facility] FOLATE SERUM Specimen Type : SERUM No comment entered. Ordering Provider: EDUARDO PAUL Report Released Date/Time: Apr 06, 2024 09:25 AM Reporting Lab: [facility] [id number] Performing Lab: [facility] [phone] FOLATE 5.4 ng/mL L >7.0 May 08, 2024 09:[address] [facility] CBC BLOOD Specimen Type: BLOOD No comment entered. Ordering Provider: EDUARDO PAUL Report Released Date/Time: Apr 06, 2024 08:50 AM Reporting Lab: [facility] [phone] Performing Lab: [facility] [phone] WBC 5.4 4.0-11.0 RBC 5.08 4.60-6.20 HGB 15.0 g/dL 13.5-17.9 HCT 46.8 41-54 MCV 92.1 fL 80-100 MCH 29.5 pg 27-33 MCHC 32.1 g/dL 32.0-37.5 PLT 135 L 150-400 MPV 11.0 fL 9.1-13.0 RDW 15.2 H 11.5-14.5 IPF 3.4 0-10 .RETICULOCYTE HE 31.7 pg 28.2-36.6 May 08, 2024 09:[address] [facility] FERRITIN SERUM Specimen Type : SERUM No comment entered. Ordering Provider: EDUARDO PAUL Report Released Date/Time: Apr 06, 2024 09:25 AM Reporting Lab: [facility] [phone] Performing Lab: [facility] [phone] FERRITIN 91.5 ng/mL 21.8-274.7 May 08, 2024 09:[address] [facility] RETICS BLOOD Specimen Type : BLOOD No comment entered. Ordering Provider: EDUARDO PAUL Report Released Date/Time: Apr 06, 2024 09:25 AM Reporting Lab: [facility] [phone] Performing Lab: [facility] [address] ABS RETIC 0.0874 0.0300-0.1000 .RETICULOCYTE 1.72 0.6-2.0 IMMATURE RETIC 10.2 1.0-14.0 .RETICULOCYTE HE 31.7 pg 28.2-36.6 May 08, 2024 09:[address] [facility] IRON GROUP SERUM Specimen Type : SERUM No comment entered. Ordering Provider: EDUARDO PAUL Report Released Date/Time: Apr 06, 2024 09:25 AM Reporting Lab: [facility] [phone] Performing Lab: [facility] [phone] IRON 75 ug/dL 65-175 TIBC,CALCULATED 379 ug/dL 250-425 FERRITIN pending IRON SATURATION 20 20-50 TRANSFERRIN 303 mg/dL 163-382 May 08, 2024 09:[address] [facility] METHYLMA ACID, QUEST SERUM Specime n Type: [...] neural tube defects and intrauterine growth restriction. [employer] utilized Multi-Modal Decomposition (MMD) analysis to establish first and second trimester- specific MMA reference intervals in , as given below: MMA, First trimester (<13 wks gestation): 58-167 nmol/L MMA, Second trimester (13-23 wks gestation): 63-241 nmol/L This test was developed and its analytical performance characteristics have been determined by [employer]. It has not been cleared or approved by the FDA. This assay has been validated pursuant to the CLIA regulations and is used for clinical purposes. Test Performed by [employer], [employer] [facility], [address] [place] [address] Mariano Browne M.D., Ph.D., Director of Laboratories , CLIA [id number] Ordering Provider: EDUARDO PAUL Report Released Date/Time: May 08, 2024 12:08 PM Reporting Lab: [facility] [phone] Performing Lab: [address] METHYLMA ACID, QUEST 411 nmol/L H 69-390 May 08, 2024 09:[address] [facility] HOMOCYSTEINE SERUM Specimen Type : SERUM No comment entered. Ordering Provider: EDUARDO PAUL Report Released Date/Time: May 08, 2024 12:08 PM Reporting Lab: [facility] [phone] Performing Lab: [facility] [phone] HOMOCYSTEINE 24.9 umol/L H 5.1-15.4 Vital Signs: All taken on the encounter date This section contains inpatient and outpatient Vital Signs collected on the date of the Encounter. Date/Time Temperature Pulse Blood Pressure Respiratory Rate SP02 Pain Height Weight Body Mass Index Source May 31, 2024 10:17 AM 61 128/75 92 [facility] May 31, 2024 09:57 AM 73 122/77 [facility] Social History: Smoking Status (Most current) [...] 11, 2023 08:00 AM VA-TOBACCO FORMER USER [facility] [...] [address] [facility] Aug 17, 2022 09:15 AM VA-TOBACCO FORMER USER [facility] Aug 17, 2022 09:15 AM VA-TOBACCO [...] WARNING [facility] Encounter Notes: All associated encounter notes This section contains the clinical notes associated to the Encounter. Date/Time Encounter Note(s) Provider Source May 31, 2024 09:07 PM ADDENDUM: LOCAL TITLE: Addendum STANDARD TITLE: ADDENDUM DATE OF NOTE: MAY 31, 2024@21:07:22 ENTRY DATE: MAY 31, 2024@21:07:24 AUTHOR: J LUIS PAUL EXP COSIGNER: URGENCY: STATUS: COMPLETED Miguel Angel, I have renewed the gabapentin at: Order Text: GABAPENTIN TAB 600MG TAKE ONE TABLET BY MOUTH TWICE A DAY Quantity: 180 Refills: 3 Indication: FOR PAIN AND NUMBNESS In March neurology had recommended augmenting to 3 times daily dosing but on review his EGFR is currently 44 and the daily maximum would be 700 mg twice daily. 30 - 59 mL/min 700 mg BID Please note that these are tablets (not capsules) and the dose is ONE tablet twice daily for peripheral neuropathy. Please notify, thanks /johana/ Toney Paul APRN, BRUSH HOLDER ASSEMBLER Family Nurse Practitioner Signed: 05/31/2024 21:09 Receipt Acknowledged By: 06/02/2024 09:49 /johana/ MIGUEL ANGEL GRANT RN STAFF NURSE ====== --- Original Document --- 05/31/24 MEDICINE CLINIC NURSING RN NOTE: BP F/U. Clinic BP today is excellent, checked x2. He notes home BPs have been more elevated (150s) and slightly elevated in Pulm clinic yesterday, he does not drink caffeine, no nicotine, waits at least 5 minutes before checking. He verifies that he made medication change as recommended following last visit. Has been eating 2 bananas/day. No edema currently. Presented to clinic with portable O2 tank set at 4lpm-but was empty by the time I saw him, he was satting 92% on room air. He'll go to prosthetics to replace tank for travel home. K low-pcp alerted. Creatinine improved, but still elevated. also inquired if he could see a specialty clinic for his neuropathy. He's using lidocaine cream occasionally but not routinely. Recommended using this routinely, advised gabapentin also for this, but it's not on his active med list. He sees neurology clinic already on his neuropathy. Plan for BP, discussed with PCP: Continue 2 bananas daily (can pick some other foods from high K list). Start K supplement when arrives. Continue to monitor home BP about 2 hours after morning medications-wait and rest at least 10 minutes before checking. Can call to check with rewriter. Plan for neuropathy: use lidocaine more routinely, informed may be difficult to increase gabapentin d/t elevated kidney fx, unsure if previous increase contributed at all to increase in creatinine. Will alert pcp and neurologist regarding med renewal request-unclear on if his gabapentin was to actually be stopped in March, flagged to neurology >2 weeks ago. /es/ MIGUEL ANGEL GRANT, PHARMACY CONSULTANT NURSE Signed: 05/31/2024 11:51 Receipt Acknowledged By: 05/31/2024 21:01 /es/ Toney Paul APRN, BRUSH HOLDER ASSEMBLER Family Nurse Practitioner * AWAITING SIGNATURE * ALHAJI EUBANKS 06/01/2024 ADDENDUM STATUS: COMPLETED Attempted to reach, left VM requesting return call. /es/ MIGUEL ANGEL GRANT PHARMACY CONSULTANT NURSE Signed: 06/01/2024 11:[address] [facility] May 31, 2024 10:29 AM NURSING OUTPATIENT NOTE: LOCAL TITLE: MEDICINE CLINIC NURSING RN NOTE STANDARD TITLE: NURSING OUTPATIENT NOTE DATE OF NOTE: MAY 31, 2024@10:29 ENTRY DATE: MAY 31, 2024@10:29:41 AUTHOR: MIGUEL ANGEL GRANT EXP COSIGNER: URGENCY: STATUS: COMPLETED MEDICINE CLINIC NURSING RN NOTE Has ADDENDA BP F/U. Clinic BP today is excellent, checked x2. He notes home BPs have been more elevated (150s) and slightly elevated in Pulm clinic yesterday, he does not drink caffeine, no nicotine, waits at least 5 minutes before checking. He verifies that he made medication change as recommended following last visit. Has been eating 2 bananas/day. No edema currently. Presented to clinic with portable O2 tank set at 4lpm-but was empty by the time I saw him, he was satting 92% on room air. He'll go to [employer] to replace tank for travel home. K low-pcp alerted. Creatinine improved, but still elevated. [place] also inquired if he could see a specialty clinic for his neuropathy. He's using lidocaine cream occasionally but not routinely. Recommended using this routinely, advised gabapentin also for this, but it's not on his active med list. He sees neurology clinic already on his neuropathy. Plan for BP, discussed with PCP: Continue 2 bananas daily (can pick some other foods from high K list). Start K supplement when arrives. Continue to monitor home BP about 2 hours after morning medications-wait and rest at least 10 minutes before checking. Can call to check with rewriter. Plan for neuropathy: use lidocaine more routinely, informed may be difficult to increase gabapentin d/t elevated kidney fx, unsure if previous increase contributed at all to increase in creatinine. Will alert pcp and neurologist regarding med renewal request-unclear on if his gabapentin was to actually be stopped in March, flagged to neurology >2 weeks ago. /johana/ MIGUEL ANGEL GRANT PHARMACY CONSULTANT NURSE Signed: 05/31/2024 11:51 Receipt Acknowledged By: 05/31/2024 21:01 /johana/ Toney Paul APRN, BRUSH HOLDER ASSEMBLER Family Nurse Practitioner 08/04/2024 22:09 /es/ ALHAJI EUBANKS Physician 05/31/2024 ADDENDUM STATUS: COMPLETED Miguel Angel, I have renewed the gabapentin at: Order Text: GABAPENTIN TAB 600MG TAKE ONE TABLET BY MOUTH TWICE A DAY Quantity: 180 Refills: 3 Indication: FOR PAIN AND NUMBNESS In March neurology had recommended augmenting to 3 times daily dosing but on review his EGFR is currently 44 and the daily maximum would be 700 mg twice daily. 30 - 59 mL/min 700 mg BID Please note that these are tablets (not capsules) and the dose is ONE tablet twice daily for peripheral neuropathy. Please notify, thanks /johana/ Toney Paul APRN, JANELLE Family Nurse Practitioner Signed: 05/31/2024 21:09 Receipt Acknowledged By: 06/02/2024 09:49 /johana/ MIGUEL ANGEL GRANT RN STAFF NURSE 06/01/2024 ADDENDUM STATUS: COMPLETED Attempted to reach, left VM requesting return call. /johana/ MIGUEL ANGEL GRANT RN STAFF NURSE Signed: 06/01/2024 11:26 06/02/2024 ADDENDUM STATUS: COMPLETED [place] notified. Confirmed he has been taking 2 capsules BID, he has not tried to increase. He has capsules at home currently, a couple bottles, recommend when receiving the new bottle he set aside until he finishes what he has. Informed of change to tablet and from 2 pills to 1 pill. He verbalized understanding. /johana/ MIGUEL ANGEL GRANT RN STAFF NURSE Signed: 06/02/2024 09:[address] [facility]
--- OUTSIDE RECORDS SUMMARY | 2024-07-14 03:20 | XMS_ITS | Encounter Summary ---
Author Name [facility] [place] Organization [facility] [place] Address [address] [place] [address] Care Team Providers Care Registered Nurse Fetal Name Role Phone EDUARDO PRATT Primary Care [...] PART A Sep 30, 2010 PART A [id number] [phone] Isaac IGLESIAS PATIENT MEDICARE (WNR) MEDICARE (M) PART A Sep 30, 2010 PART A [id number] [phone] Isaac IGLESIAS PATIENT Selected Encounter This section includes the information on record at [place] for the Encounter. Date/Time Encounter Type Encounter Description Reason Provider Source Jul 14, 2024 08:20 AM OFFICE O/P EST MOD 30 MIN OPHTHALMOLOGY ICD-10-CM H40.1132 Primary open-angle glaucoma, bilateral, moderate stage PAVITHRA GREENE Encounter Template Text not used by [place] Assessments - Encounter Diagnoses This section includes the primary and secondary diagnoses documented for the Encounter. Date/Time Primary/Secondary Diagnosis Diagnosis Name Provider Source Jul 14, 2024 09:43 AM PRIMARY Primary open-angle glaucoma, bilateral, moderate stage [facility] Jul 14, 2024 09:43 AM SECONDARY Myopia, bilateral [facility] Jul 14, 2024 09:43 AM SECONDARY Presbyopia [facility] Jul 14, 2024 09:43 AM SECONDARY Presence of intraocular lens [facility] Jul 14, 2024 09:43 AM SECONDARY Puckering of macula, bilateral [facility] Jul 14, 2024 09:43 AM SECONDARY Unspecified astigmatism, bilateral [facility] Plan of Treatment: Future Appointments (+ 6 months) and Future Tests (+/- 45 days) The Plan of Treatment section includes future care activities for the patient [facility] [place] [facility] [place] This section includes future appointments and future orders which are active, pending or scheduled. Future Appointments This section includes appointments that were scheduled to occur 6 months from the date of the Encounter, up to a maximum of 20 appointments. The data comes from all [place] treatment facilities. Appointment Date/Time Appointment Type Appointme nt Facility Name Jul 20, 2024 11:00 AM AMBULATORY - MEDICINE [facility] Jul 20, 2024 01:30 PM AMBULATORY - MEDICINE [facility] Jul 20, 2024 02:00 PM AMBULATORY - MEDICINE [facility] Jul 24, 2024 07:30 AM AMBULATORY - SURGERY [facility] Jul 28, 2024 05:00 PM AMBULATORY - REHAB [facility] Aug 04, 2024 07:45 AM AM[facility]ORY - NONE [facility] Aug 21, 2024 08:00 AM [facility] NONE [facility] Aug 21, 2024 08:30 AM [facility] Aug 22, 2024 08:30 AM AMBULATORY - NEUROLOGY [facility] Sep 05, 2024 08:30 AM AMBULATORY - SURGERY [facility] Sep 08, 2024 11:00 AM AMBULATORY - SURGERY [facility] Sep 19, 2024 09:00 AM [facility] Sep 27, 2024 08:30 AM AM[place] [facility] Sep 27, 2024 10:00 AM AM[place]UL[place]ORY [place]ICINE [place] [facility] Oct 05, 2024 07:00 AM [place]ORY - NONE [place] [facility] Oct 05, 2024 08:00 AM [facility] Oct 24, 2024 07:45 AM [place]ORY - NONE [place] [facility] Nov 10, 2024 09:00 AM AM[place]ORY - NONE [place] [facility] Nov 17, 2024 11:00 AM AM[place]ORY - NONE [place] [facility] Dec 11, 2024 08:30 AM AMBULATORY - REHAB MEDICIN [facility] Lab Results: +/- 30 [...] Unit Interpretation Reference Range Specimen Type Comment Jul 20, 2024 02:05 PM [facility] BNP PLASMA Specimen Type: PLASMA No comment entered. Ordering Provider: ANTONIO AREVALO Report Released Date/Time: Jul 20, 2024 01:44 PM Reporting Lab: [facility] [id number] Performing Lab: [facility] [id number] BNP 417 pg/mL H <99 Jul 20, 2024 02:05 PM [facility] BASIC METABOLIC PANEL+MG PLASMA Spe cimen Type: PLASMA No comment entered. Ordering Provider: ANTONIO AREVALO Report Released Date/Time: Jul 20, 2024 01:44 PM Reporting Lab: [facility] [id number] Performing Lab: [facility] [id number] CREATININE 1.3 mg/dL H 0.7-1.2 UREA NITROGEN 18 mg/dL 8-26 GLUCOSE 91 mg/dL 70-100 SODIUM 138 mmol/L 136-145 POTASSIUM 4.8 mmol/L 3.5-5.1 CHLORIDE 105 mmol/L 98-107 CO2 26 mmol/L 22-29 CALCIUM 9.7 mg/dL 8.4-10.2 MAGNESIUM 2.1 mg/dL 1.6-2.6 ANION GAP 7 mmol/L 5-15 .CREAT EGFR(CKD-EPI) 56 L >60 Jul 20, 2024 02:05 PM [facility] CBC & DIFF BLOOD Specimen Type : BLOOD Comment: Automated Differential Performed Ordering Provider: ANTONIO AREVALO Report Released Date/Time: Jul 20, 2024 01:44 PM Reporting Lab: [facility] [id number] Performing Lab: [facility] [id number] WBC 4.6 4.0-11.0 RBC 5.23 4.60-6.20 HGB 14.6 g/dL 13.5-17.9 HCT 46.8 41.0-54.0 MCV 89.5 fL 80.0-100.0 MCH 27.9 pg 27.0-33.0 MCHC 31.2 g/dL L 32.0-37.5 PLT 144 L 150-400 MPV 9.9 fL 9.1-13.0 NEUT 67.2 40.0-80.0 LYMPHS 20.8 15.0-45.0 MONO 9.7 2.0-12.0 EOSINO 1.5 0.0-6.0 BASO 0.6 0.0-2.0 RDW 16.2 H 11.5-14.5 ABS LYMPH 1.0 1.0-4.0 ABS MONO 0.5 0.1-1.0 ABS NEUT 3.1 2.0-7.7 ABS EOS 0.1 0.0-0.5 ABS BASO 0.0 0.0-0.2 IG(META,MYELO,PRO) 0.2 ABS IMMATURE GRAN 0.0 0.0-0.1 Vital Signs: All taken on the encounter date This section contains inpatient and outpatient Vital Signs collected on the date of the Encounter. Date/Time Temperature Pulse Blood Pressure Respiratory Rate SP02 Pain Height Weight Body Mass Index Source Jul 14, 2024 01:15 PM 73 166/[address] [facility] Jul 14, 2024 11:52 AM 70 156/[address] [facility] Jul 14, 2024 10:42 AM 97.1 85 147/[address] [facility] Social History: Smoking Status (Most current) and Tobacco Use (All prior to encounter date) This section includes the most current, and the historical, smoking and tobacco- related health factors from the [place] facility where the Encounter took place. Current Smoking Status This section includes the most current smoking, or tobacco-related health factor, from the [place] facility where the Encounter took place. Date/Time Current Smoking Status Comment Facil ity Oct 11, 2023 08:00 AM VA-TOBACCO FORMER USER [facility] Tobacco Use History This section includes a history of the smoking, or tobacco-related health factors, that were collected on or before the date of the Encounter. The data comes from the [place] facility where the Encounter took place. Date/Time [...] ALL of a patient's completed or amended [place] Advance and Rescinded Directives. The entries below indicate that a directive exists for the patient, but an actual copy is not included with this document. The data comes from all [place] facilities. Date Advance Directives Provider Source Dec 04, 2009 CLINICAL WARNING KAMARI CUMMINGS [facility] Radiology Reports: +/- 30 days [...] the Encounter. The data comes from all [place] treatment facilities. Date/Time Radiology Report Provider Source Jul 14, 2024 11:25 AM SHOULDER RIGHT 2-3 VIEWS: ROSS IGLESIAS [id number] -1945 M Exm Date: JUL 14, 2024@11:25 Req Phys: EPI VAZQUEZ Loc: [facility] EMERGENCY DEPT WALK-IN (Re Img Loc: MAIN X-RAY Service: [place] [address] (Case [id number] COMPLETE) SHOULDER RIGHT 2-3 VIEWS (RAD Detailed) CPT:02574 Reason for Study: fall, right shoulder pain Clinical History: IS NOT under investigation for COVID-19 or is COVID-19 negative fall 10 days ago. Right shoulder pain Responsible provider name and phone number to notify for critical findings if other than user placing the order and pager listed below: User placing orders pager: [phone] rachana LAST CREATININE 1.6 H (05/31/24) Report Status: Verified Date Reported: JUL 14, 2024 Date Verified: JUL 14, 2024 Licensed Nuclear Control Room Operator E-Sig:/ES/LISA STRICKLAND MD Report: X-RAY EXAM OF right shoulder, three views INDICATION: Reason for Study: fall, right shoulder pain [place] IS NOT under investigation for COVID-19 or is COVID-19 negative fall 10 days ago. Right shoulder pain Responsible provider name and phone number to notify for critical findings if other than user placing the order and pager listed below: User placing orders pager: [phone] green LAST CREATININE 1.6 H (05/31/24) COMPARISON: Chest x-ray dated 03/19/2024 Impression: FINDINGS/IMPRESSION: There is moderate narrowing of the subacromial space. There is a lateral downsloping of the acromion. There is chondrocalcinosis. Mild degenerative changes are seen in the acromioclavicular joint. There is mild narrowing of the glenohumeral joint with some periarticular osteophyte formation. There is no fracture or dislocation. Pulmonary vascular/interstitial markings are prominent, but decreased compared with the film dated 03/19/2024 No evidence for an acute osseous abnormality. Primary Interpreting Staff: LISA STRICKLAND MD, RADIOLOGIST (Licensed Nuclear Control Room Operator) /LISA GARCIA [facility] Jul 14, 2024 10:[address] HEAD (P): ROSS IGLESIAS ALEJANDRO [id number] -1945 M Exm Date: JUL 14, 2024@10:53 Req Phys: EPI VAZQUEZ Loc: [facility] EMERG[facility] [facility] [place]: CT IMAGING Service: [place] [address] (Case [id number] COMPLETE) CT HEAD/BRAIN W/O CONTRAST (CT Detailed) CPT:67297 Reason for Study: fell/hit head/thinners Clinical History: LAST 3: Collection DT Specimen Test Name Result Units Ref Range 05/31/2024 09:39 PLASMA CREATININE 1.6 H mg/dL 0.7 - 1.2 05/08/2024 09:15 PLASMA CREATININE 1.9 H mg/dL 0.7 - 1.2 04/06/2024 06:33 PLASMA CREATININE 1.4 H mg/dL 0.7 - 1.2 05/31/2024 09:39 PLASMA .CREAT EGFR(CKD-E 44 L Ref: >=60 05/08/2024 09:15 PLASMA .CREAT EGFR(CKD-E 36 L Ref: >=60 04/06/2024 06:33 PLASMA .CREAT EGFR(CKD-E 51 L Ref: >=60 Allergies: ([place] only) PENICILLIN (May 15, 1994) SIMVASTATIN (Apr 01, 2006) LOBSTER (Jul 12, 2007) SCALLOPS (Jul 12, 2007) LISINOPRIL (Apr 03, 2008) METOPROLOL (Apr 03, 2008) FISH (Dec 04, 2009) CONTRAST MEDIA (Jul 06, 2022) ZOLPIDEM (Dec 20, 2023) TOPIRAMATE (January 03, 2024) Defer to radiologist for final CT protocol. Contact number for responsible provider who can be reached for any questions or notifications of critical findings: [phone] Per Joint Commission Standards, by signing this diagnostic imaging request the ordering provider confirms they have considered patients age and recent imaging history. Report Status: Verified Date Reported: JUL 14, 2024 Date Verified: JUL 14, 2024 Licensed Nuclear Control Room Operator E-Sig:/ES/PAPITO DEMARCO MD Report: EXAM: CT HEAD/BRAIN W/O CONTRAST HISTORY: fell/hit head/thinners Reason for Study: fell/hit head/thinners LAST 3: Collection DT Specimen Test Name Result Units Ref Range 05/31/2024 09:39 PLASMA CREATININE 1.6 H mg/dL 0.7 - 1.2 05/08/2024 09:15 PLASMA CREATININE 1.9 H mg/dL 0.7 - 1.2 04/06/2024 06:33 PLASMA CREATININE 1.4 H mg/dL 0.7 - 1.2 05/31/2024 09:39 PLASMA .CR COMPARISON: Noncontrast head CT August 18, 2022. TECHNIQUE: Routine axial noncontrast acquisition. Routine sagittal and coronal reconstructions. Dose: Total DLP 781. FINDINGS: Brain parenchyma is within normal limits in density. Volume loss particularly in the frontal lobe regions bilaterally are stable. No evidence of acute intracranial hemorrhage, intracranial mass effect or hydrocephalus. Calcification at the anterior circulation. Imaged paranasal sinuses are within normal limits. Impression: 1. Frontal lobe volume loss is relatively stable. 2. Arterial calcification. Primary Interpreting Staff: PAPITO DEMARCO MD, RADIOLOGIST (Licensed Nuclear Control Room Operator) /PAPITO GILLIAM [facility] Encounter Notes: All associated encounter notes This section contains the clinical notes associated to the Encounter. Date/Time Encounter Note(s) Provider Source Jul 14, 2024 09:04 AM OPHTHALMOLOGY ATTE [place]ODY NOTE: LOCAL TITLE: OPHTHALMOLOGY CLINIC NOTE STANDARD TITLE: OPHTHALMOLOGY ATTENDING NOTE DATE OF NOTE: JUL 14, 2024@09:04 ENTRY DATE: JUL 14, 2024@09:04:35 AUTHOR: PAVITHRA GREENE EXP COSIGNER: URGENCY: STATUS: COMPLETED Tech note for today: LOCAL TITLE: OFFICE 365 CONSULTANT NOTE STANDARD TITLE: OFFICE 365 CONSULTANT NOTE DATE OF NOTE: JUL 14, 2024@08:06 ENTRY DATE: JUL 14, 2024@08:07:02 AUTHOR: LENA SMITH EXP COSIGNER: URGENCY: STATUS: COMPLETED Eye Start Exam Patient: ROSS IGLESIAS Sex: MALE SSN: [id number] Birthdate: [birth year] Chief complaint: Exam - pt states he has glaucoma - no changes in vision - had IOL repositioning done at [place] and happy with the outcome History of Present Illness: Location: Intensity: Duration: Active Problems List: Active problems - Computerized Problem List is the source for the followin. Osteoarthritis (SNOMED CT 851715638) 2. Depression (SNOMED CT 78782859) 3. Posttraumatic stress disorder (SNOMED CT 79028535) 4. 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 Malignant tumor of [...] Tremor 23. Exposure to potentially hazardous substance ([facility] [id number]) - Entered through [place] VAS/VISN23 [employer]ENN[employer]ER Documentation Initiative 24. 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 Chronic respiratory failure 27. Heart failure with normal ejection fraction 28. Pulmonary fibrosis 29. Chronic hypoxemic respiratory failure 30. Pulmonary emphysema - Group III Full Exam Eye Medications purple top OU bid Allergies: PENICILLIN (May 15, 1994) SIMVASTATIN (Apr 01, 2006) LOBSTER (Jul 12, 2007) SCALLOPS (Jul 12, 2007) LISINOPRIL (Apr 03, 2008) METOPROLOL (Apr 03, 2008) FISH (Dec 04, 2009) CONTRAST MEDIA (Jul 06, 2022) ZOLPIDEM (Dec 20, 2023) TOPIRAMATE (January 03, 2024) No new Allergies. Last refraction: Vision: OD:SC(without glasses) OD: 20/50-2 Pinhole: 20/ Near: 20/ Vision: OS:SC(without glasses) 0S: 20/40-2 Pinhole: 20/ Near: 20/ Refraction: Manifest: YES Automated: NO OD:-1.75 +2.25X30 20/30 OS:-0.75 +1.11H063 20/30-1 Balance: Add: +2.50 Near vision: OD : OS : OU Comment: Confrontational Bowers: Full to finger counting: Right: Yes Left: Yes Extra Ocular Movement: Normal Pupils: Right: Irregular Left: Round Size: Right: 4 Left: 4 React to light: Right: Yes Left: Yes Afferent pupil defect: Right:No Grade: Left: No Grade: Note: Intra-ocular pressure (IOP): OD: 10 OS: 10 Dilation: mydriacyl 1% and neosynephrine OU Jun@08:30 end of tech note I have reviewed and agree with the electrical mechanical technician note of today Patient is alert and oriented X3 and mood and affect are appropriate. SLE: External: normal ou Lid/Lash: normal ou Conj/Sclera:clear and quiet ou Cornea: clear ou AC: Deep & quiet ou Iris: normal without RI or defects ou Lens:pcl ou, mild sunset os Dilated exam: yes Optic nerve: normal ou, vC/D:0.6/0.7 Macula:pigment mottling od Vessels: normal ou Periphery: Flat, no abnormalities ou Vitreous: absent od, no pigment or heme ou IOP history ([facility]) ----- 06/2024 Brimonidine 01/2022 Brimonidine 07/2021 Brimonidine 02/2021 Cosopt/Brimonidine 07/2020 Cosopt/Brimonidine 04/2019 Cosopt/Brimonidine 10/2018 Cosopt/Brimonidine 06/2018 Cosopt/Brimonidine 02/2018 Cosopt/Brimonidine ----- Assessment and Plan: #1: Glaucoma- Primary open angle glaucoma- moderate stage OU -diagnosed: 10/04/2013 high IOP in 2015 OS following retina surgery. Latanoprost stopped and Cosopt/Brimonidine started at that time. -rx initiated: 10/04/2013, IOP (review of notes that day) -FH: denies -cup/disc: 0.6/0.7 -disc photos: taken 12/12/13 c/w exam -pachy: 564, 556 2011 -gonio: 2011 OD: open to cb. 2-3+ pigment. OS: open to SS, opens to cb with compression. 2-3+ pigment. 10/04/2013 RE: open to cb 360. 2+ pigment, no pas. LE: open to postTM superior. open to SS 270. opens to cb with compression. 1-2+ pigment, no pas. -other: h/o COPD (mild, tolerating Cosopt), Latanoprost stopped secondary to macular edema OS * OCT RNFL 07/14/24 stable ou * HVF done 2020 and ~stable OU * IOP good on just Brimonidine, continue * f/u 6 months #2: Recurrent ERM OS s/p PPV/gas/MP (05/08/2016, 05/11/2016, [place]) mac 07/14/24 od:mild erm, fovea ok os:resdual folds #3: hx Pseudophakia OU- subluxation OD lens - s/p repositioned at [place] still followed by them #4: Refractive error/myopia astig presbyope: - and svn #5: hx Dermatochalasia and blepharoptosis - s/p bulb f/u general ophthalmology clinic 6 months vtd, HVF 24-2 OU or sooner with changes Total time spent on spent on testing/chart review, exam, discussion, and charting was in excess of 30 minutes. /es/ PAVITHRA GREENE MD STAFF CLINICAL QUALITY RN Signed: 07/14/2024 09:43 PAVITHRA GREENE [facility] Jul 14, 2024 08:59 AM OPHTHALMOLOGY TECH NICIAN NOTE: LOCAL TITLE: OFFICE 365 CONSULTANT NOTE STANDARD TITLE: OFFICE 365 CONSULTANT NOTE DATE OF NOTE: JUL 14, 2024@08:59 ENTRY DATE: JUL 14, 2024@08:59:46 AUTHOR: ERIN PICKARD EXP COSIGNER: URGENCY: STATUS: COMPLETED completemac and rnfl /es/ ERIN PICKARD OPHTHALMOLGY TECH OPHTHALMOLOGY TECH Signed: 07/14/2024 09:00 ERIN PICKARD [facility] Jul 14, 2024 08:06 AM OPHTHALMOLOGY TECH NICIAN NOTE: LOCAL TITLE: OFFICE 365 CONSULTANT NOTE STANDARD TITLE: OFFICE 365 CONSULTANT NOTE DATE OF NOTE: JUL 14, 2024@08:06 ENTRY DATE: JUL 14, 2024@08:07:02 AUTHOR: LENA SMITH EXP COSIGNER: URGENCY: STATUS: COMPLETED Eye Start Exam Patient: ROSS IGLESIAS Sex: MALE SSN: [id number] Birthdate: [birth year] Chief complaint: Exam - pt states he has glaucoma - no changes in vision - had IOL repositioning done at [place] and happy with the outcome History of Present Illness: Location: Intensity: Duration: Active Problems List: Active problems - Computerized Problem List is the source for the followin. Osteoarthritis (SNOMED CT 866964667) 2. Depression (SNOMED CT 47072285) 3. Posttraumatic stress disorder (SNOMED CT 55230047) 4. 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 Malignant tumor of [...] Tremor 23. Exposure to potentially hazardous substance ([facility] [id number]) - Entered through [facility]ENNIFER Documentation Initiative 24. 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 Chronic respiratory failure 27. Heart failure with normal ejection fraction 28. Pulmonary fibrosis 29. Chronic hypoxemic respiratory failure 30. Pulmonary emphysema - Group III Full Exam Eye Medications purple top OU bid Allergies: PENICILLIN (May 15, 1994) SIMVASTATIN (Apr 01, 2006) LOBSTER (Jul 12, 2007) SCALLOPS (Jul 12, 2007) LISINOPRIL (Apr 03, 2008) METOPROLOL (Apr 03, 2008) FISH (Dec 04, 2009) CONTRAST MEDIA (Jul 06, 2022) ZOLPIDEM (Dec 20, 2023) TOPIRAMATE (January 03, 2024) No new Allergies. Last refraction: Vision: OD:SC(without glasses) OD: 20/50-2 Pinhole: 20/ Near: 20/ Vision: OS:SC(without glasses) 0S: 20/40-2 Pinhole: 20/ Near: 20/ Refraction: Manifest: YES Automated: NO OD:-1.75 +2.25X30 20/30 OS:-0.75 +1.20L701 20/30-1 Balance: Add: +2.50 Near vision: OD : OS : OU Comment: Confrontational Bowers: Full to finger counting: Right: Yes Left: Yes Extra Ocular Movement: Normal Pupils: Right: Irregular Left: Round Size: Right: 4 Left: 4 React to light: Right: Yes Left: Yes Afferent pupil defect: Right:No Grade: Left: No Grade: Note: Intra-ocular pressure (IOP): OD: 10 OS: 10 Dilation: mydriacyl 1% and neosynephrine OU Jun@08:30 /johana/ LENA SMITH [facility] BUSINESS CONSULT Signed: 07/14/2024 08:31 LENA SMITH [facility]
--- OUTSIDE RECORDS SUMMARY | 2024-07-14 05:32 | XMS_ITS | Encounter Summary ---
Author Name [facility] [place] Organization [facility] [place] Address [address] [place] [address] Care Team Providers Care Production Material Handler Name Role Phone EDUARDO PRATT Primary Care [...] PART A Sep 30, 2010 PART A [id number] Isaac IGLESIAS PATIENT MEDICARE (WNR) MEDICARE (M) PART A Sep 30, 2010 PART A [id number] [phone] Isaac IGLESIAS PATIENT Selected Encounter This section includes the information on record at [place] for the Encounter. Date/Time Encounter Type Encounter Description Reason Provider Source Jul 14, 2024 10:32 AM EMERGENCY DEPT VISIT LOW [facility]DM EMERGENCY DEPT ICD-10-CM S46.011A Strain of musc/tend the rotator cuff of right shoulder, inLIVIER Ga IHE Encounter Template Text not used by [place] Assessments - Encounter Diagnoses This section includes the primary and secondary diagnoses documented for the Encounter. Date/Time Primary/Secondary Diagnosis Diagnosis Name Provider Source Jul 14, 2024 01:18 PM PRIMARY Strain of musc/tend the rotator cuff of right shoulder, init LIVIER DE LA ROSA [facility] Jul 14, 2024 01:18 PM SECONDARY Unspecified fall, initial encounter LIVIER DE LA ROSA [facility] Plan of Treatment: Future Appointments (+ 6 months) and Future Tests (+/- 45 days) The Plan of Treatment section includes future care activities for the [facility] [place] [facility] This section includes future appointments and future orders which are active, pending or scheduled. Future Appointments This section includes appointments that were scheduled to occur 6 months from the date of the Encounter, up to a maximum of 20 appointments. The data comes from all [place] treatment facilities. Appointment Date/Time Appointment Type Appointme nt Facility Name Jul 20, 2024 11:00 AM [facility] Jul 20, 2024 01:30 PM [facility] Jul 20, 2024 02:00 PM [facility] Jul 24, 2024 07:30 AM [facility]ORY [facility] [place]GERY [place] [facility] Jul 28, 2024 05:00 PM AMBULATORY - REHAB [facility]IC[facility] Aug 04, 2024 07:45 AM [facility] Aug 21, 2024 08:00 AM [place] [facility] Aug 21, 2024 08:30 AM [facility] Aug 22, 2024 08:30 AM AMBULATORY - NEUROLOGY [place] [facility] Sep 05, 2024 08:30 AM [place]UL[place]ORY - SURGERY [place] [facility] Sep 08, 2024 11:00 AM [place] - [place]GERY [place] [facility] Sep 19, 2024 09:00 AM [facility] Sep 27, 2024 08:30 AM AMB[place] [facility] Sep 27, 2024 10:00 AM [facility] Oct 05, 2024 07:00 AM [place] [facility] Oct 05, 2024 08:00 AM [facility] Oct 24, 2024 07:45 AM [place]ONE [place] [facility] Nov 10, 2024 09:00 AM [facility] - [facility] [place] [facility] Nov 17, 2024 11:00 AM [place]ORY - [place]ONE [place] [facility] Dec 11, 2024 08:30 AM AMBULATORY - REHAB MEDICIN E [facility] Lab Results: +/- 30 days of the encounter This section includes the Chemistry and Hematology Lab Results on record with [place] for the patient. Radiology Reports and Pathology Reports are provided separately, in subsequent sections. Lab Results This section contains the Chemistry/Hematology Results that were resulted 30 days before or 30 daysafter the date of the Encounter. Date/Time Source Result Type Result - Unit Interpretation Reference Range Specimen Type Comment Jul 20, 2024 02:05 PM [facility] BNP PLASMA Specimen Type: PLASMA No comment entered. Ordering Provider: ANTONIO AREVALO Report Released Date/Time: Jul 20, 2024 01:44 PM Reporting Lab: [facility] [id number] Performing Lab: [facility] [id number] BNP 417 pg/mL H <99 Jul 20, 2024 02:05 PM [facility] BASIC METABOLIC PANEL+MG PLASMA Spe cimen Type: PLASMA No comment entered. Ordering Provider: ANTONIO AREVALO Report Released Date/Time: Jul 20, 2024 01:44 PM Reporting Lab: [facility] [id number] Performing Lab: [facility] [id number] CREATININE 1.3 mg/dL H 0.7-1.2 UREA NITROGEN 18 mg/dL 8-26 GLUCOSE 91 mg/dL 70-100 SODIUM 138 mmol/L 136-145 POTASSIUM 4.8 mmol/L 3.5-5.1 CHLORIDE 105 mmol/L 98-107 CO2 26 mmol/L 22-29 CALCIUM 9.7 mg/dL 8.4-10.2 MAGNESIUM 2.1 mg/dL 1.6-2.6 ANION GAP 7 mmol/L 5-15 .CREAT EGFR(CKD-EPI) 56 L >60 Jul 20, 2024 02:05 PM [facility] CBC & DIFF BLOOD Specimen Type : BLOOD Comment: Automated Differential Performed Ordering Provider: ANTONIO AREVALO Report Released Date/Time: Jul 20, 2024 01:44 PM Reporting Lab: [facility] [phone] Performing Lab: [facility] [id number] WBC 4.6 4.0-11.0 RBC 5.23 4.60-6.20 HGB [...] 14, 2024 01:15 PM 73 166/72 95 [facility] Jul 14, 2024 11:52 AM 70 156/81 18 96 [facility] Jul 14, 2024 10:42 AM 97.1 85 147/87 18 92 8 [facility] Social History: Smoking Status (Most current) and Tobacco Use (All prior to encounter date) This section includes the most current, and the historical, smoking and tobacco- related health factors from the [facility] where the Encounter took place. Current Smoking Status This section includes the most current smoking, or tobacco-related health factor, from the [place] facility where the Encounter took place. Date/Time Current Smoking Status Comment Anuja alexis Oct 11, 2023 08:00 AM VA-TOBACCO FORMER USER [facility] Tobacco Use History This section includes a history of the smoking, or tobacco-related health factors, that were collected on or before the date of the Encounter. The data comes from the [place] facility where the Encounter took place. Date/Time Smoking Status/Tobacco Use Comment F acility Oct 11, 2023 08:00 AM VA-TOBACCO QUIT 15 YRS OR MORE [facility] Aug 17, 2022 09:15 AM VA-TOBACCO FORMER USER [facility] Aug 17, 2022 09:15 AM VA-TOBACCO QUIT 15 YRS OR MORE [facility] Oct 27, 2021 09:00 AM VA-TOBACCO FORMER USER [facility] Oct 27, 2021 09:00 AM VA-TOBACCO QUIT 15 YRS OR MORE [facility] Sep 19, 2020 09:00 AM VA-TOBACCO FORMER USER [facility] Sep 19, 2020 09:00 AM VA-TOBACCO QUIT 15 YRS OR MORE [facility] Dec 20, 2018 10:09 AM VA-TOBACCO FORMER USER [facility] Dec 20, 2018 10:09 AM VA-TOBACCO QUIT 15 YRS OR MORE [facility] Dec 07, 2017 09:12 AM FORMER TOBACCO USER 7Y OR GREATE R [facility] Apr 21, 2017 08:35 AM FORMER TOBACCO USER 7Y OR GREATE R [facility] Apr 28, 2016 08:20 AM FORMER TOBACCO USER 7Y OR GREATE R [facility] January 22, 2015 10:07 AM FORMER TOBACCO USER 7Y OR GREATE R [facility] January 25, 2014 10:11 AM FORMER TOBACCO USER 7Y OR GREATE R [facility] December 30, 2011 08:00 AM FORMER TOBACCO USER 7Y OR GREATE R [facility] January 21, 2011 01:16 PM FORMER TOBACCO USE >1Y <7Y [facility] Nov 27, 2009 08:09 AM FORMER TOBACCO USE >1Y <7Y [facility] Dec 27, 2008 12:32 AM FORMER TOBACCO USE >1Y <7Y [facility] January 03, 2008 12:52 PM FORMER TOBACCO USE >1Y <7Y [facility] January 11, 2007 10:43 AM FORMER TOBACCO USE >1Y <7Y [facility] Advance Directives: All historical and current Section Date Range: From patient's date of to the date document was created. This section includes ALL of a patient's completed or amended [place] Advance and Rescinded Directives. The entries below indicate that a directive exists for the patient, but an actual copy is not included with this document. The data comes from all [place] facilities. Date Advance Directives Provider Source Dec 04, 2009 CLINICAL WARNING KAMARI [facility] Radiology Reports: +/- 30 days of the [...] AM SHOULDER RIGHT 2-3 VIEWS: ROSS IGLESIAS ALEJANDRO [id number] -1945 M Exm Date: JUL 14, 2024@11:25 Req Phys: LIVIER DE LA ROSA Loc: [facility] EMERGENCY DEPT WALK-IN (Re Img Loc: MAIN X-RAY Service: [place] [address] (Case [id number] COMPLETE) SHOULDER RIGHT 2-3 VIEWS (RAD Detailed) CPT:35262 Reason for Study: fall, right shoulder pain Clinical History: IS NOT under investigation for COVID-19 or is COVID-19 negative fall 10 days ago. Right shoulder pain Responsible provider name and phone number to notify for critical findings if other than user placing the order and pager listed below: User placing orders pager: [phone] green LAST CREATININE 1.6 H (05/31/24) Report Status: Verified Date Reported: JUL 14, 2024 Date Verified: JUL 14, 2024 Bottle Capping Machine Operator E-Sig:/ES/LISA STRICKLAND MD Report: X-RAY EXAM OF right shoulder, three views INDICATION: Reason for Study: fall, right shoulder pain [place] IS NOT under investigation for COVID-19 or is COVID-19 negative fall 10 days ago. Right shoulder pain Responsible provider name and phone number to notify for critical findings if other than user placing the order and pager listed below: User placing orders pager: [phone] green LAST CREATININE 1.6 H (05/31/24) COMPARISON: [...] Primary Interpreting Staff: LISA STRICKLAND MD, RADIOLOGIST (Bottle Capping Machine Operator) /LISA GARCIA [facility] Jul 14, 2024 10:[address] HEAD (P): ROSS IGLESIAS [id number] -1945 M Exm Date: JUL 14, 2024@10:53 Req Phys: LIVIER DE LA ROSA Loc: [facility] EMERGENCY DEPT WALK-IN (Re Img Loc: CT IMAGING Service: [place] [address] (Case [id number] COMPLETE) CT HEAD/BRAIN W/O CONTRAST (CT Detailed) CPT:66054 Reason for Study: fell/hit head/thinners Clinical History: [...] .CREAT EGFR(CKD-E 51 L Ref: >=60 Allergies: ([place] only) PENICILLIN (May 15, 1994) SIMVASTATIN (Apr [...] any questions or notifications of critical findings: 6990 Per Joint Commission Standards, by signing this diagnostic imaging request the ordering provider confirms they have considered patients age and recent imaging history. Report Status: Verified Date Reported: JUL 14, 2024 Date Verified: JUL 14, 2024 Bottle Capping Machine Operator E-Sig:/ES/PAPITO DEMARCO MD Report: EXAM: CT [...] Primary Interpreting Staff: PAPITO DEMARCO MD, RADIOLOGIST (Bottle Capping Machine Operator) /PAPITO GILLIAM [facility] Encounter Notes: All associated encounter notes This section contains the clinical notes associated to the Encounter. Date/Time Encounter Note(s) Provider Source Jul 14, 2024 01:16 PM NURSING EMERGENCY DEPT NOTE: LOCAL TITLE: EMERGENCY DEPT NURSING NOTE STANDARD TITLE: NURSING EMERGENCY DEPT NOTE DATE OF NOTE: JUL 14, 2024@13:16 ENTRY DATE: JUL 14, 2024@13:17:08 AUTHOR: PAULO OROZCOIGNER: URGENCY: STATUS: COMPLETED Emergency Department Discharge Education Personal Protective Equipment (PPE): None The patient was given education on the following: shoulder strain EDUCATION/TEACH BACK: [facility] discharge instructions have been reviewed with Patient AND had an opportunity to ask questions, has verbalized understanding, have received a copy of the [facility] instructions EDUCATIONAL LEVEL OF UNDERSTANDING: Patient was ready and receptive to education. BARRIERS TO LEARNING: No barriers identified Accompanied by: Self Mode of Transportation: Relative/friend EXIT ADDITIONAL EDUCATION GIVE: sling to left arm Wristband Removal:Patient wristband was removed and destroyed by being placed in the shred bin. Discharged to: Home IV dc'd- catheter intact /es/ PAULO OROZCO RN REGISTERED NURSE Signed: 07/14/2024 13:18 PAULO OROZCO [facility] Jul 14, 2024 01:02 PM EMERGENCY DEPT EDUCATION NOTE: LOCAL TITLE: EMERGENCY DEPT DISCHARGE INSTRUCTIONS STANDARD TITLE: EMERGENCY DEPT EDUCATION NOTE DATE OF NOTE: JUL 14, 2024@13:02:25 ENTRY DATE: JUL 14, 2024@13:02:25 AUTHOR: LIVIER DE LA ROSAIGNER: URGENCY: STATUS: COMPLETED DISCHARGE INSTRUCTIONS IMPORTANT: We examined and treated you today on an emergency basis only. This was not a substitute for, or an effort to provide, comprehensive medical care. In most cases, you must let your healthcare provider check you again. Tell your healthcare provider about any new or lasting problems. We cannot recognize and treat all injuries or illnesses in one Emergency Department visit. After you leave, you should follow the instructions below. You were treated today by Livier De La Rosa MD. Special Information We did not find any broken bones in the shoulder. It also looks like you strained your rotator cuff tendons with the fall. Please use the sling when you are up and about to help with pain control. If it is not considerably better in one week, please call your primary doctor to arrange orthopedics follow up. This Information Is About Your Follow Up Care Call your Primary Care Team if you have any problems or concerns. You can reach them by calling . Future Appointments Future Appointments List not available This Information Is About Your Illness and Diagnosis ROTATOR CUFF INJURY Muscles and tendons support and surround the shoulder. These are called the rotator cuff. The rotator cuff helps move the shoulder and keep it stable. A rotator cuff injury can often cause a dull ache in the shoulder, which may get worse when trying to sleep on the involved side. Rotator cuff injuries occur most often in people who repeatedly perform overhead motions in their jobs or sports. How will the rotator cuff injury be treated? Treatment for a torn rotator cuff depends on age, health, how severe the injury is, and how long you've had the torn rotator cuff. Treatment for torn rotator cuff may include the following: -rest -heat or cold to the sore area -medicines that reduce pain and swelling -electrical stimulation of muscles and nerves -ultrasound -cortisone injections -physical therapy exercises -surgery is sometimes needed if the injury does not heal on its own Please follow these instructions: -Rest your shoulder for the next few days. -If your shoulder is completely well in a few days (no pain, and fully moveable), then no further treatment may be needed. -If pain or stiffness remains, see your health care provider to determine if further treatment is needed. -With future exercise, go slowly and stretch before starting to exercise. Contact your health care provider if you have any of the following: -increased pain or difficulty moving your arm. -numbness, tingling or swelling in your hand or fingers. -any new or more severe symptoms. -any questions or concerns. This Information Is About Your Medical Equipment And Treatments ARM SLING An arm sling is used after an injury or surgery to help protect your arm while it heals. The sling keeps your arm against your body, preventing your arm from moving so your arm heals properly. It is important to wear the sling properly. This can prevent complications, such as improper healing, and pain and swelling in your hand and wrist. To apply the arm sling: -Gently pull the sling over your arm and elbow. Your elbow should be secure in the back of the sling. Your hand should come to the very end of the sling. Make sure the end of the sling doesn't cut into your wrist or hand. -Grab the strap that is attached to the sling behind the elbow. Pull the strap around the back of your neck and thread it through the loop in the sling that is near your hand. Pull the strap through and tighten it so that your hand and forearm are pulled above the level of your elbow. -Fasten the Velcro on the strap. -Some slings have a strap that goes around your back. It is usually attached to the part of the sling near your elbow. This strap prevents you from lifting your elbow away from your body. If your sling has this strap, reach behind you and grab the strap. Pull it around your back and fasten it to the area of the sling near your hand. You should be able to fit two or three fingers between your body and the strap of the sling. Keep in mind that when you are wearing the sling, your muscles around your shoulder, elbow, and wrist should be relaxed. Contact your health care provider if you have any new or bothersome symptoms. IMPORTANT MEDICATION INFORMATION -Your medication list includes any medications that were recently prescribed but not filled by the Pharmacy (PENDING Medicines). -Included are any known ACTIVE Medicines. Please review this list to make sure it is accurate, if this list does not match the current medications you are taking please follow-up with your Primary Care Team to have your Medication List reviewed. Medicines Medication List not available YOU ARE THE MOST IMPORTANT FACTOR IN YOUR RECOVERY. Follow the above instructions carefully. Take your medicines as prescribed. If you do not understand any of your medicines, please ask questions. If you have any outstanding tests from the emergency department, please contact your provider to review them in the next 3-5 days. If you have new symptoms, feel worse, or are not getting better as discussed, call to discuss your health questions and arrange for follow-up care, or return to the Emergency Room IF YOU ARE EXPERIENCING A MEDICAL EMERGENCY CALL 911 OR GO TO THE NEAREST EMERGENCY ROOM // LIVIER DE LA ROSA MD ED Physician Signed: 07/14/2024 13:02 LIVIER DE LA ROSA [facility] Jul 14, 2024 11:39 AM NURSING NOTE: LOCAL TITLE: INAES NSG IV INSERTION AND MAINTENANCE STANDARD TITLE: NURSING NOTE DATE OF NOTE: JUL 14, 2024@11:39 ENTRY DATE: JUL 14, 2024@11:40:05 AUTHOR: JOSEFA JEAN COSIGNER: URGENCY: STATUS: COMPLETED Version 2.2 Charting in accordance with IN APPROVED TEJON STANDARD (INAES) ACUTE INPATIENT/REHABILITATION NURSING ADMISSION SCREENING, ASSESSMENT, AND STANDARDS OF CARE == IV Line Insertion and Maintenance == == Peripheral IV == Line #1: Insertion: Date/Time: Jun@11:00 Inserted by (name): Josefa Jean RN Location: Left, Antecubital Gauge: 18 Assessment: Location: Left Gauge: 18 Dressing Condition: Clean, dry, intact Securement device in place Site Condition: No redness, swelling, pain Line Status: Capped Flushed /es/ JOSEFA JEAN RN NURSE FOURTH OFFICER Signed: 07/14/2024 11:41 JOSEFA JEAN [facility] Jul 14, 2024 11:20 AM NURSING EMERGENCY DEPT NOTE: LOCAL TITLE: EMERGENCY DEPT NURSING NOTE STANDARD TITLE: NURSING EMERGENCY DEPT NOTE DATE OF NOTE: JUL 14, 2024@11:20 ENTRY DATE: JUL 14, 2024@11:20:51 AUTHOR: JOSEFA JEAN EXP COSIGNER: URGENCY: STATUS: COMPLETED Nursing Focused Assessment: CHIEF COMPLAINT: 78 y/o male to Room 11 via wheelchair by himself with complaint of getting up too quickly from kitchen chair to go let his dog out and he states he got dizzy and had a syncopal episode falling onto right shoulder. Ecchymosis noted to be about 10 days old. Patient is on Xeralto. Patient wants to be checked out for injury. Complains of headache since incident. Alert and oriented x 4. Drove himself here for an eye appointment. Pupils are chemically dialated at this time from eye appointment. Allergies/ADR: PENICILLIN (May 15, 1994) SIMVASTATIN (Apr 01, 2006) LOBSTER (Jul 12, 2007) SCALLOPS (Jul 12, 2007) LISINOPRIL (Apr 03, 2008) METOPROLOL (Apr 03, 2008) FISH (Dec 04, 2009) CONTRAST MEDIA (Jul 06, 2022) ZOLPIDEM (Dec 20, 2023) TOPIRAMATE (January 03, 2024) Additional allergies not listed: None Vital Signs: Vital signs previously recorded this visit: Date Vital Measurement Qualifiers 07/14/2024 10:42 Temp F (C) 97.1 (36.2) Pulse 85 Respir 18 BP 147/87 Pain 8 POx (L/Min)(%) 92 Pain intensity: (Patient rates the pain. 0 = no pain; 10 = worst pain) Is your pain new with this visit? (acute or chronic) Yes Current Pain rating score: 8 (07/14/2024 10:42) Pain score at worst: 9 Pain score at best: 4 Location of pain: headache, right shoulder pain Description of pain: ache, sharp at times Duration: 10 days since fall Aggravating factors: movement Alleviating factors: some rest Tobacco use: No Alcohol use: No Any drugs besides what is prescribed or over the counter: No ABUSE/NEGLECT: No evidence of abuse/neglect FALLS: Witnessed: Yes When: 06/30/2024 Where: at home in kitchen Position: Standing Hit Head: Yes Loss of consciousness: Yes Duration: 3 minutes Seizure: No Injury: Yes right shoulder pain and echymosis present Interventions: Bed in low position: 2 railings up, wheels locked REVIEW OF SYSTEM-FOCUSED ASSESSMENT Neurological: Alert Bishnu Coma Scale: Date and Time Preformed: Jun@11:35 Best Motor Response: Obeys simple commands - 6 Best Verbal Response: Oriented - 5 Eye Opening: Spontaneous - 4 Total: 15 Pupils: Right Equal, round, reactive to light Size: 6 mm Sclera coloring: White Left Equal, round, reactive to light Size: 6 mm Sclera coloring: White Additional comments/issues/interventions: pupils dialated due to eye exam today in eye clinic before coming to ED. Musculoskeletal: Right Upper Extremity: Specific location of complaint: Right shoulder Range of motion: restricted: Pain Sensation: Able to differentiate between dull and sharp sensations Color: Normal for ethnicity Temperature: Within Normal Limits Capillary refill time: brisk, <2 seconds Radial: strong INTERVENTIONS: Patient changed into gown: Warm blanket Oriented to room and bed controls Call light within reach of patient or family/friend Bed in low position and locked // JOSEFA JEAN RN NURSE FOURTH OFFICER Signed: 07/14/2024 11:39 JOSEFA JEAN [facility] Jul 14, 2024 10:51 AM PHYSICIAN EMERGENCY DEPT NOTE: LOCAL TITLE: EMERGENCY DEPT NOTE STANDARD TITLE: PHYSICIAN EMERGENCY DEPT NOTE DATE OF NOTE: JUL 14, 2024@10:51 ENTRY DATE: JUL 14, 2024@10:51:21 AUTHOR: LIVIER DE LA ROSA COSIGNER: URGENCY: STATUS: COMPLETED Nurse's note reviewed as available. (PPE): used PPE during every encounter with the patient CC: Fall 1 week ago continued severe right shoulder pain HPI: ROSS IGLESIAS is a 78 yo MALE history of CAD, hypertension, COPD history of DVT on rivaroxaban, CHF, had a fall 9 days ago now where he got up very quickly and then got lightheaded and fell back onto the table hitting his right shoulder he was able to hover there for a few minutes and then gradually slumped to the floor. He was able to get up after a while. Since then he has noticed continued pain and inability to rise his right arm above 90 degrees. Has not had any falls since he has not been dizzy recently feeling otherwise well. History of previous bilateral rotator cuff repair ROS: See HPI PMH: Active problems - Computerized Problem List is the source for the followin. Osteoarthritis (SNOMED CT 313717211) 2. Depression (SNOMED CT 48501856) 3. Posttraumatic stress disorder (SNOMED CT 27033009) 4. 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 Malignant tumor of [...] Tremor 23. Exposure to potentially hazardous substance ([facility] [id number]) - Entered through [facility]/[address] Documentation Initiative 24. 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 Chronic respiratory failure 27. Heart failure with normal ejection fraction 28. Pulmonary fibrosis 29. Chronic hypoxemic respiratory failure 30. Pulmonary emphysema - Group III Allergies: PENICILLIN (May 15, 1994) SIMVASTATIN (Apr 01, 2006) LOBSTER (Jul 12, 2007) SCALLOPS (Jul 12, 2007) LISINOPRIL (Apr 03, 2008) METOPROLOL (Apr 03, 2008) FISH (Dec 04, 2009) CONTRAST MEDIA (Jul 06, 2022) ZOLPIDEM (Dec 20, 2023) TOPIRAMATE (January 03, 2024) Allergies, SH, medications reviewed in CPRS Active Outpatient Medications (excluding Supplies): Outpatient Medications Status 1) ALBUTEROL 90MCG (CFC-F) 200D ORAL INHL INHALE 2 PUFFS ACTIVE BY INHALATION EVERY 4 HOURS NEEDED FOR SHORTNESS OF BREATH 2) ATORVASTATIN CALCIUM 40MG TAB TAKE ONE TABLET BY ACTIVE MOUTH EVERY DAY FOR CHOLESTEROL 3) BRIMONIDINE TARTRATE 0.2% OPH SOLN INSTILL 1 DROP IN PENDING BOTH EYES TWICE A DAY FOR GLAUCOMA [...] NOSTRIL EVERY DAY FOR CONGESTION 11) GABAPENTIN 600MG TAB TAKE ONE TABLET BY MOUTH TWICE A ACTIVE DAY FOR PAIN AND NUMBNESS 12) LIDOCAINE 5% OINT APPLY MODERATE AMOUNT TOPICALLY ACTIVE THREE TIMES A DAY NEEDED FOR PAIN 13) LIDOCAINE 5% PATCH APPLY 1 PATCH TOPICALLY EVERY DAY ACTIVE NEEDED 14) POTASSIUM CL 20MEQ SA TAB (DISPERSIBLE) TAKE ONE ACTIVE TABLET BY MOUTH EVERY DAY FOR POTASSIUM SUPPLEMENT 15) RIVAROXABAN 20MG TAB TAKE ONE TABLET BY MOUTH EVERY ACTIVE DAY WITH THE LARGEST MEAL OF THE DAY TO TREAT AND/OR PREVENT BLOOD CLOTS 16) SERTRALINE HCL 100MG TAB TAKE TWO TABLETS BY MOUTH ACTIVE EVERY DAY FOR DEPRESSION & PTSD 17) TELMISARTAN 20MG TAB TAKE ONE TABLET BY MOUTH EVERY ACTIVE DAY FOR BLOOD PRESSURE 18) TIOTROPIUM 2.5MCG/ACTUAT 60D ORAL INHL INHALE TWO ACTIVE PUFFS BY INHALATION EVERY DAY FOR COPD 19) TORSEMIDE 20MG TAB TAKE ONE TABLET BY MOUTH EVERY DAY ACTIVE FOR EXCESS FLUID 20) VANICREAM TOP CREAM APPLY THIN LAYER TOPICALLY ACTIVE DIRECTED FOR DRY SKIN BP: 147/87 (07/14/2024 10:42) Pulse: 85 (07/14/2024 10:42) Temp: 97.1 F [36.2 C] (07/14/2024 10:42) Resp: 18 (07/14/2024 10:42) SpO2: 92% (07/14/2024 10:42) Wt: 160.6 lb [72.85 kg] (05/30/2024 08:47) Pain: 8 (07/14/2024 10:42) PE: Const: well-nourished, appearing stated age, nontoxic Eyes: no conjunctival injection and symmetrical lids ENMT: Atraumatic external nose and ears, moist MM Neck: Symmetric, trachea midline CVS: Normal HR, normal perfusion. No peripheral edema RESP: Unlabored respiratory effort, normal RR GI: NTND, soft, no masses MSK: NCAT, extremities w/o deformity. ttp over anterior rotator cuff tendons R. Unable to abduct R arm past 90 degrees without pain. I am able to passively raise arm above 90 degrees but produces pain. Skin: warm, dry, healing ecchymosis over anterior R shoulder into right chest wall. Neuro: normal mentation and speech, EOMI, PERRL, no focal deficits Psych: AAO, appropriate mood and affect Medical Decision Making: DDx: rotator cuff tear, AC separation, bankart lesion or other small nondisplaced fracture shoulder, no evidence of severe fracture/dislocation Initial Plan: Ordered CT head from waiting room. XR shoulder ordered by RN. Declines pain control. Personally viewed and radiology interpreted: -CT:Impression: 1. Frontal lobe volume loss is relatively stable. 2. Arterial calcification. -XR shoulder: Impression: FINDINGS/IMPRESSION: There is moderate narrowing of [...] No evidence for an acute osseous abnormality. Reassessment: -No bleeding or acute pathology on CT head -XR without acute bony pathology. -Likely rotator cuff strain, given sling, he declines pain medication at this time. If not improved in a week, he can discuss ortho referral with PCP Edu: was informed of available results, impression, plan of care - verbalized understanding/agreement. Dispo: DC in stable condition. See 'discharge plan' for detailed DC instructions Diagnoses: Fall Rotator cuff strain R I have: Ordered lab, radiology or other diagnostic tests Independently visualized and interpreted an image, tracing or speciment previously or subsequently interpreted by another provider Differential diagnoses considered (details in note) /johana/ LIVIER DE LA ROSA MD ED Physician Signed: 07/15/2024 15:59 LIVIER DE LA ROSA [facility] Jul 14, 2024 10:42 AM NURSING EMERGENCY DEPT TRIAGE NOTE: LOCAL TITLE: EMERGENCY DEPARTMENT NURSING TRIAGE NOTE STANDARD TITLE: NURSING EMERGENCY DEPT TRIAGE NOTE DATE OF NOTE: JUL 14, 2024@10:42 ENTRY DATE: JUL 14, 2024@10:42:33 AUTHOR: CHARITY PÉREZ COSIGNER: URGENCY: STATUS: COMPLETED Emergency Department/Urgent Care Center Triage Patient age:78 Sex: MALE On arrival patient was: AMBULATORY Patient phone number: Allergies: PENICILLIN (May 15, 1994) SIMVASTATIN (Apr 01, 2006) LOBSTER (Jul 12, 2007) SCALLOPS (Jul 12, 2007) LISINOPRIL (Apr 03, 2008) METOPROLOL (Apr 03, 2008) FISH (Dec 04, 2009) CONTRAST MEDIA (Jul 06, 2022) ZOLPIDEM (Dec 20, 2023) TOPIRAMATE (January 03, 2024) Subjective/Chief Complaint: Patient reports he fell 10 days ago and hit his head, on blood thinners. Has headache and right shoulder bruise. Objective: Alert, no acute distress. The patient is not a fall risk. Vital Signs * Blood Pressure: 147/87 (07/14/2024 10:42) Heart Rate: 85 (07/14/2024 10:42) Respirations: 18 (07/14/2024 10:42) Temperature: 97.1 F [36.2 C] (07/14/2024 10:42) Pain: 8 (07/14/2024 10:42) Weight: 160.6 lb [72.85 kg] (05/30/2024 08:47) O2 Sats: 92% (07/14/2024 10:42) PAIN INTENSITY: (Patient rates the pain. 0 = no pain; 10 = worst pain) Is your pain new with this visit? (acute or chronic) Current Pain rating score: 8 (07/14/2024 10:42) Pain score at worst: Pain score at best: Location of pain: Headache Description of pain: Duration: Aggravating factors: Alleviating factors: Emergency Severity Index (LISE) level Level 2 Current Medications: Active Outpatient Medications (including Supplies): Active Outpatient Medications Status 1) ALBUTEROL 90MCG (CFC-F) 200D ORAL INHL INHALE 2 PUFFS ACTIVE BY INHALATION EVERY 4 HOURS NEEDED FOR SHORTNESS OF BREATH 2) ATORVASTATIN CALCIUM 40MG TAB TAKE ONE TABLET BY ACTIVE MOUTH EVERY DAY FOR CHOLESTEROL 3) CALCIUM [...] 1 PATCH TOPICALLY EVERY DAY ACTIVE NEEDED 13) POTASSIUM CL 20MEQ SA TAB (DISPERSIBLE) TAKE ONE ACTIVE TABLET BY MOUTH EVERY DAY FOR POTASSIUM SUPPLEMENT 14) RIVAROXABAN 20MG TAB TAKE ONE TABLET BY MOUTH EVERY ACTIVE DAY WITH THE LARGEST MEAL OF THE DAY TO TREAT AND/OR PREVENT BLOOD CLOTS 15) SERTRALINE HCL 100MG TAB TAKE TWO TABLETS BY MOUTH ACTIVE EVERY DAY FOR DEPRESSION & PTSD 16) TELMISARTAN 20MG TAB TAKE ONE TABLET BY MOUTH EVERY ACTIVE DAY FOR BLOOD PRESSURE 17) TIOTROPIUM 2.5MCG/ACTUAT 60D ORAL INHL INHALE TWO ACTIVE PUFFS BY INHALATION EVERY DAY FOR COPD 18) TORSEMIDE 20MG TAB TAKE ONE TABLET BY MOUTH EVERY DAY ACTIVE FOR EXCESS FLUID 19) VANICREAM TOP CREAM APPLY THIN LAYER TOPICALLY ACTIVE DIRECTED FOR DRY SKIN Pending Outpatient Medications Status 1) BRIMONIDINE TARTRATE 0.2% OPH SOLN INSTILL 1 DROP IN PENDING BOTH EYES TWICE A DAY FOR GLAUCOMA SPACE 10 MINUTES APART FROM OTHER EYE DROPS 20 Total Medications Current Problems: Osteoarthritis (SCT 456055812) Depression ([facility] [id number]) Posttraumatic stress disorder (SCT 93788Qgdqhbz/Glauc Suspect (ICD-9-CM 365.00) Malignant tumor of oropharynx (SCT 13877Fgbsdulm artery disease ([facility] [id number]) Hypertension (SCT 14912881) Hyperlipidemia (SCT 45391706) COPD - Chronic obstructive pulmonary disHistory of malignant neoplasm of skin excluding melanoma (SCT 228205107) History of venous thrombosis (SCT 845403Aiqewtf rhinitis ([facility] 28720785) Syncope ([facility] [id number]) Long-term current use of anticoagulant ([facility] [id number]) History of adenomatous polyp of colon (SPeripheral neuropathy ([facility] [id number]) Benign prostatic hyperplasia with outfloHypoxic (SCT 367634339) Pulmonary hypertension ([facility] 29784416) Ex-tobacco user ([facility] [id number]) Hearing loss ([facility] 42580835) Tremor ([facility] 25395266) Exposure to potentially hazardous substaParkinsonism ([facility] [id number]) Hemifacial spasm of right facial nerve (Chronic respiratory failure ([facility] [id number]) Heart failure with normal ejection fractPulmonary fibrosis ([facility] [id number]) Chronic hypoxemic respiratory failure (SPulmonary emphysema ([facility] 50189725) Identification of Seniors at Risk (ISAR):* Perform Screen Yes-ISAR More than 3 different medications daily Total Score: 1 Suicide Screen: [place] Suicide Severity Rating Scale (C-SSRS) screener 1. [...] went to the roof but didn't jump)? No 8. If YES, was this within the past 3 months? Response not required due to responses to other questions. /johana/ CHARITY PÉREZ REGISTERED NURSE Signed: 07/14/2024 10:45 CHARITY PÉREZ [facility]
--- OUTSIDE RECORDS SUMMARY | 2024-07-20 08:30 | XMS_ITS | Encounter Summary ---
Author Name [facility] [place] Organization [facility] [place] Address [address] [place] [address] Care Team Providers Care Manager Intensive Care Name Role Phone EDUARDO PRATT Primary Care [...] PART A Sep 30, 2010 PART A [id number] [phone] Isaac IGLESIAS PATIENT MEDICARE (WNR) MEDICARE ([place]) PART A Sep 30, 2010 PART A [id number] [phone] Isaac IGLESIAS PATIENT Selected Encounter This section includes the information on record at [place] for the Encounter. Date/Time Encounter Type Encounter Description Reason Provider Source Jul 20, 2024 01:30 PM OFFICE O/P EST HI 40 MIN PULMONARY/CHEST ICD-10-CM J44.9 Chronic obstructive pulmonary disease, unspecified EDSON KOTHARI IHE Encounter Template Text not used by [place] Assessments - Encounter Diagnoses This section includes the primary and secondary diagnoses documented for the Encounter. Date/Time Primary/Secondary Diagnosis Diagnosis Name Provider Source Jul 20, 2024 02:03 PM PRIMARY Chronic obstructive pulmonary disease, unspecified ANTONINA KOTHARI [facility] Jul 20, 2024 02:03 PM SECONDARY senior care (current) use of anticoagulants ANTONINA KOTHARI [facility] Jul 20, 2024 02:03 PM SECONDARY Personal history of other venous thrombosis and embolism ANTONINA KOTHARI [facility] Jul 20, 2024 02:03 PM SECONDARY Pulmonary hypertension, unspecified ANTONINA KOTHARI [facility] Plan of Treatment: Future Appointments (+ 6 months) and Future Tests (+/- 45 days) The Plan of Treatment section includes future care activities for the patient from all [place] [facility]. This section includes future appointments and future orders which are active, pending or scheduled. Future Appointments This section includes appointments that were scheduled to occur 6 months from the date of the Encounter, up to a maximum of 20 appointments. The data comes from all [facility]. Appointment Date/Time Appointment Type Appointme nt Facility Name Jul 24, 2024 07:30 AM [facility] Jul 28, 2024 05:00 PM AMBULATORY - REHAB MEDICIN E [facility] Aug 04, 2024 07:45 AM [facility] [facility] Aug 21, 2024 08:00 AM [facility] [facility] Aug 21, 2024 08:30 AM [facility] Aug 22, 2024 08:30 AM [facility]UL[facility] - [facility]UROLOGY [place] [facility] Sep 05, 2024 08:30 AM [facility] [place] [facility] Sep 08, 2024 11:00 AM [facility] [place] [facility] Sep 19, 2024 09:00 AM [facility] Sep 27, 2024 08:30 AM AMBUL[place]ORY [place] [facility] Sep 27, 2024 10:00 AM [facility] Oct 05, 2024 07:00 AM [place] [place] [facility] Oct 05, 2024 08:00 AM [facility] Oct 24, 2024 07:45 AM [facility] [facility] Nov 10, 2024 09:00 AM AMBULATORY - NONE [facility] Nov 17, 2024 11:00 AM AMBULATORY - NONE [facility] Dec 11, 2024 08:30 AM AMBULATORY - REHAB [facility] January 16, 2025 08:20 AM AM[facility]UL[facility] January 16, 2025 08:40 AM AMBULATORY - SURGERY [facility] January 17, 2025 08:00 AM AMBULATORY - REHAB [facility] Lab Results: +/- 30 days of the encounter This section includes the Chemistry and Hematology Lab Results on record with [place] for the patient. Radiology Reports and Pathology Reports are provided separately, in subsequent sections. Lab Results This section contains the Chemistry/Hematology Results that were resulted 30 days before or 30 daysafter the date of the Encounter. Date/Time Source Result Type Result - Unit Interpretation Reference Range Specimen Type Comment Jul 20, 2024 02:05 PM [facility] BNP PLASMA Specimen Type: PLASMA No comment entered. Ordering Provider: ANTONIO KOTHARI Report Released Date/Time: Jul 20, 2024 01:44 PM Reporting Lab: [facility] [id number] Performing Lab: [facility] [id number] BNP 417 pg/mL H <99 Jul 20, 2024 02:05 PM [facility] BASIC METABOLIC PANEL+MG PLASMA Spe cimen Type: PLASMA No comment entered. Ordering Provider: ANTONIO KOTHARI Report Released Date/Time: Jul 20, 2024 01:44 PM Reporting Lab: [facility] [id number] Performing Lab: [facility] [id number] CREATININE 1.3 mg/dL H 0.7-1.2 UREA NITROGEN 18 mg/dL 8-26 GLUCOSE 91 mg/dL 70-100 SODIUM 138 mmol/L 136-145 POTASSIUM 4.8 mmol/L 3.5-5.1 CHLORIDE 105 mmol/L 98-107 CO2 26 mmol/L 22-29 CALCIUM 9.7 mg/dL 8.4-10.2 MAGNESIUM 2.1 mg/dL 1.6-2.6 ANION GAP 7 mmol/L 5-15 .CREAT EGFR(CKD-EPI) 56 L >60 Jul 20, 2024 02:05 PM [facility] CBC & DIFF BLOOD Specimen Type : BLOOD Comment: Automated Differential Performed Ordering Provider: ANTONIO KOTHARI Report Released Date/Time: Jul 20, 2024 01:44 PM Reporting Lab: [facility] [id number] Performing Lab: [facility] [id number] WBC 4.6 4.0-11.0 RBC 5.23 4.60-6.20 HGB [...] Height Weight Body Mass Index Source Jul 20, 2024 01:07 PM 96.7 64 148/93 17 96 0 65 153.5 26 [place] [facility] Social History: Smoking Status (Most current) and Tobacco Use (All prior to encounter date) This section includes the most current, and the historical, smoking and tobacco- related health factors from the [place] facility where the Encounter took place. Current Smoking Status This section includes the most current smoking, or tobacco-related health factor, from the [place] facility where the Encounter took place. Date/Time Current Smoking Status Comment Facil ity Oct 11, 2023 08:00 AM VA-TOBACCO FORMER USER [facility] Tobacco Use History This section includes a history of the smoking, or tobacco-related health factors, that were collected on or before the date of the Encounter. The data comes from the [place] facility where the Encounter took place. Date/Time Smoking Status/Tobacco Use Comment F acility Oct 11, 2023 08:00 AM VA-TOBACCO QUIT 15 YRS OR MORE [facility] Aug 17, 2022 09:15 AM VA-TOBACCO FORMER USER [facility] Aug 17, 2022 09:15 AM VA-TOBACCO QUIT 15 YRS OR MORE [facility] Oct 27, 2021 09:00 AM VA-TOBACCO FORMER USER [facility] Oct 27, 2021 09:00 AM VA-TOBACCO QUIT 15 YRS OR MORE [facility] Sep 19, 2020 09:00 AM VA-TOBACCO FORMER USER [facility] Sep 19, 2020 09:00 AM VA-TOBACCO QUIT 15 YRS OR MORE [facility] Dec 20, 2018 10:09 AM VA-TOBACCO FORMER USER [facility] Dec 20, 2018 10:09 AM VA-TOBACCO QUIT 15 YRS OR MORE [facility] Dec 07, 2017 09:12 AM FORMER TOBACCO USER 7Y OR GREATE R [facility] Apr 21, 2017 08:35 AM FORMER TOBACCO USER 7Y OR GREATE R [facility] Apr 28, 2016 08:20 AM FORMER TOBACCO USER 7Y OR GREATE R [facility] January 22, 2015 10:07 AM FORMER TOBACCO USER 7Y OR GREATE R [facility] January 25, 2014 10:11 AM FORMER TOBACCO USER 7Y OR GREATE R [facility] December 30, 2011 08:00 AM FORMER TOBACCO USER 7Y OR GREATE R [facility] January 21, 2011 01:16 PM FORMER TOBACCO USE >1Y <7Y [facility] Nov 27, 2009 08:09 AM FORMER TOBACCO USE >1Y <7Y [facility] Dec 27, 2008 12:32 AM FORMER TOBACCO USE >1Y <7Y [facility] January 03, 2008 12:52 PM FORMER TOBACCO USE >1Y <7Y [facility] January 11, 2007 10:43 AM FORMER TOBACCO USE >1Y <7Y [facility] Advance Directives: All historical and current Section Date Range: From patient's date of to the date document was created. This section includes ALL of a patient's completed or amended VA Advance and Rescinded Directives. The entries below indicate that a directive exists for the patient, but an actual copy is not included with this document. The data comes from all [place] facilities. Date Advance Directives Provider Source Dec 04, 2009 CLINICAL WARNING KAMARI CUMMINGSTiffany [facility] Radiology Reports: +/- 30 [...] the Encounter. The data comes from all [place] treatment facilities. Date/Time Radiology Report Provider Source Jul 14, 2024 11:25 AM SHOULDER RIGHT 2-3 VIEWS: IGLESIASROSS ALEJANDRO [id number] -[id number] M Exm Date: JUL 14, 2024@11:25 Req Phys: EPI VAZQUEZ Loc: [facility] EMERGENCY DEPT WALK-IN (Re Img Loc: MAIN X-RAY Service: [place] [address] (Case [id number] COMPLETE) SHOULDER RIGHT 2-3 VIEWS (RAD Detailed) CPT:74332 Reason for Study: fall, right shoulder pain Clinical History: IS NOT under investigation for COVID-19 or is COVID-19 negative fall 10 days ago. Right shoulder pain Responsible provider name and phone number to notify for critical findings if other than user placing the order and pager listed below: User placing orders pager: [phone] green JEREMIAH CREATININE 1.6 H (05/31/24) Report Status: Verified Date Reported: JUL 14, 2024 Date Verified: JUL 14, 2024 Floral Decorator E-Sig:/ES/LISA STRICKLAND MD Report: X-RAY EXAM OF right shoulder, three views INDICATION: Reason for Study: fall, right shoulder pain IS NOT under investigation for COVID-19 or is COVID-19 negative fall 10 days ago. Right shoulder pain Responsible provider name and phone number to notify for critical findings if other than user placing the order and pager listed below: User placing orders pager: [phone] rachana LAST CREATININE 1.6 H (05/31/24) COMPARISON: Chest [...] Primary Interpreting Staff: LISA STRICKLAND MD, RADIOLOGIST (Floral Decorator) /LISA GARCIA [facility] Jul 14, 2024 10:[address] HEAD (P): ROSS IGLESIAS [id number] -1945 M Exm Date: JUL 14, 2024@10:53 Req Phys: EPI VAZQUEZ Loc: [facility] EMERGENCY DEPT WALK-IN (Re Img Loc: CT IMAGING Service: [place] [address] (Case [id number] COMPLETE) CT HEAD/BRAIN W/O CONTRAST (CT Detailed) CPT:08860 Reason for Study: fell/hit head/thinners Clinical History: [...] .CREAT EGFR(CKD-E 51 L Ref: >=60 Allergies: ([facility] only) PENICILLIN (May 15, 1994) SIMVASTATIN (Apr [...] any questions or notifications of critical findings: 2991 Per Joint Commission Standards, by signing this diagnostic imaging request the ordering provider confirms they have considered patients age and recent imaging history. Report Status: Verified Date Reported: JUL 14, 2024 Date Verified: JUL 14, 2024 Floral Decorator E-Sig:/ES/PAPITO DEMARCO MD Report: EXAM: CT HEAD/BRAIN [...] Primary Interpreting Staff: PAPITO DEMARCO MD, RADIOLOGIST (Floral Decorator) /PAPITO GILLIAM [facility] Encounter Notes: All associated encounter notes This section contains the clinical notes associated to the Encounter. Date/Time Encounter Note(s) Provider Source Aug 21, 2024 10:59 AM ADDENDUM: LOCAL TITLE: Addendum STANDARD TITLE: ADDENDUM DATE OF NOTE: AUG 21, 2024@10:59:04 ENTRY DATE: AUG 21, 2024@10:59:06 AUTHOR: SHANTHI BUSTILLO EXP COSIGNER: URGENCY: STATUS: COMPLETED >>Dr. Kothari - Chest CT completed 08/21/24 - will enroll in LNT to f/u new nodule Impression: 1. 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 No significant progression from 06/22/2023. 2. New 3 mm solid nodule in the left upper lobe. Other small pulmonary nodules are unchanged. Recommend follow-up according to Fleischner Society 2017 guidelines. Alternatively, this can be followed on LDCT lung cancer screening in 1 year if the patient qualifies. 3. Additional findings as detailed in the report. 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 Previous serologic workup was normal other than mildly elevated CRP and ESR, prior sputum cultures have grown Cladosporium and Fusarium, but no AFB. At a visit in June 2023 his imaging was stable and we held off on antifibrotic's due to overall improvement in groundglass opacities and improvement in a dense consolidation and bronchiectasis in the left upper lobe. He was last seen in December 2023 and felt like his breathing was getting worse. He reported 2 months of filling up with mucus. He was feeling more short of breath and could only walk 4-5 blocks. A chest x-ray showed no acute cardiopulmonary disease, he was prescribed prednisone and doxycycline He was seen in the emergency department in February 2024 for swelling and a chest x-ray showed interstitial pulmonary edema, he was started on furosemide and at follow-up with primary care he felt like his breathing was improved. An echocardiogram in April showed normal LV systolic function, moderate tricuspid regurgitation, right ventricular hypertrophy, and severe pulmonary hypertension with an estimated PA systolic 77 mmHg above the right atrial pressure, and a normal IVC diameter with blunted respirophasic response. A new consult was placed for pulmonary hypertension in April 2024, I reviewed his chart and felt that the pulmonary hypertension was due to group 2 and 3, and that sildenafil or other Group 1 pulmonary hypertension treatment was not indicated. He was seen in pulmonary eval clinic on May 30 and no changes were made. Interval history: He feels 'not bad.' He has O2 that he uses at home. He doesn't use it during the day. His O2 sats were 96% today. He walks with his dog about 1/2 mile down to the end of the road to get the mail every day. He doesn't get short of breath with that, he would have in the past to the point that he would have had to sit down. He has felt better every since he was put on furosemide. He is not coughing much at all. He feels like the inhalers are working pretty well. He is sleeping OK. Pertinent medications: Torsemide Rivaroxaban Albuterol Fluticasone/salmterol Tiotropium Past medical history, surgical history, and social history reviewed in CPRS. Physical Exam: VS reviewed in CPRS Gen - well appearing elderly man CV - RRR No mgr Pulm - bibasilar crackles Ext - no edema PFTs (personally reviewed and interpreted): FVC 2.70 (89%) FEV1 1.55 (67%) FEV1/FVC 0.57 DLCO 34% FEV1 and FVC are improved from previous, DLCO is stable Chest imaging (personally reviewed and interpreted): CT chest May 2023: 1. Overall improvement in variable mixed pulmonary parenchymal opacities previously progressed from August 2019, superimposed on combination upper lobe predominant subpleural bullous change, and moderate to severe upper lobe centrilobular emphysema. Prior most dense consolidation with associated bronchiectasis in posterior left upper lobe now nearly completely resolved. Other relatively dense bandlike pulmonary prior opacities have also improved orresolved. Findings suggest resolving multifocal infectious or inflammatory [...] cortical cysts. 9. Small bilateral adrenal adenomas. Labs (personally reviewed and interpreted): Eosinophils 0.24 in February 2024 BNP 745 in April 2024, repeat in May was 273 Most recent bicarb 35 in May 2024 Labs, tests and imaging results listed in pulmonary note were discussed with patient. Assessment and plan: 78 year old man with a history of COPD, paraseptal emphysema, ILD, group II and III (maybe group IV as well) PHTN here for follow up. He is feeling much better, his dyspnea is greatly improved. I suspect this is primarily from diuresis which would also account for his improved spirometry. For his COPD and emphysema, we will continue triple inhaler therapy. He is not having exacerbations, but we will continue ICS given his eos of 0.24 previously. For his ILD, we will obtain a repeat chest CT. It is difficult to assess for any progression because of the improvemen in his spirometry with diuresis. His DLCO is stable, but I would have also expected this to improve with diuresis. It is possible that his pulmonary edema has improved and his ILD has worsened. For his pulmonary hypertension, he is improved with diuresis. With his parenchymal lung disease he almost certainly has some group III PHTN, but I suspect there may be a component of group II as well. He is not currently on an SGLT2 inhibitor. I will defer to primary care whether to manage this or refer to cardiology/CHF clinic. For his chronic hypoxic respiratory failure, he does not require o2 at rest (he was 96% on room air today. I asked him to check his oxygen saturations at home and restart O2 of sats were < 85% with exertion. I will see him back in 12 months, sooner if needed, and will follow up the results of his upcoming CT chest. /johana/ ANTONIO KOTHARI MD PACCS STAFF PHYSICIAN Signed: 07/20/2024 14:04 07/20/2024 ADDENDUM STATUS: COMPLETED Alerting pulmonary RN to help track results of CT chest. Alerting primary care to question of whether he should be on an SGLT2 inhibitor. /es/ ANTONIO KOTHARI MD PACCS STAFF PHYSICIAN Signed: 07/20/2024 14:05 Receipt Acknowledged By: 07/20/2024 14:14 /es/ Toney Pratt APRN, SEX OFFENDER TREATMENT PROFESSIONAL Family Nurse Practitioner 07/20/2024 14:16 /johana/ MG NGUYỄN RN REGISTERED NURSE 07/20/2024 ADDENDUM STATUS: COMPLETED --> Earnestine please call patient to schedule Chest CT and make RN CC for the same day thank you! /david NGUYỄN RN REGISTERED NURSE Signed: 07/20/2024 14:18 Receipt Acknowledged By: 07/24/2024 10:22 /johana/ EARNESTINE Allen Front Desk Clerk SHANTHI BUSTILLO [facility] Jul 20, 2024 02:16 PM ADDENDUM: LOCAL TITLE: Addendum STANDARD TITLE: ADDENDUM DATE OF NOTE: JUL 20, 2024@14:16:56 ENTRY DATE: JUL 20, 2024@14:16:57 AUTHOR: MG NGUYỄN COSIGNER: URGENCY: STATUS: COMPLETED --> Earnestine please call patient to schedule Chest CT and make RN CC for the same day thank you! /david NGUYỄN RN REGISTERED NURSE Signed: 07/20/2024 14:18 Receipt Acknowledged By: 07/24/2024 10:22 /david Allen Front Desk Clerk --- Original Document --- 07/20/24 PULMONARY CLINIC NOTE: Patient summary: 78-year-old man with a history of oropharyngeal cancer with resection in the , coronary artery disease with PCI 2003, heart failure with preserved ejection fraction, COPD with severe obstruction, and pulmonary hypertension who is followed in pulmonary clinic for chronic hypoxic respiratory failure and abnormal chest CT. Previous serologic workup was normal other than mildly elevated CRP and ESR, prior sputum cultures have grown Cladosporium and Fusarium, but no AFB. At a visit in June 2023 his imaging was stable and we held off on antifibrotic's due to overall improvement in groundglass opacities and improvement in a dense consolidation and bronchiectasis in the left upper lobe. He was last seen in December 2023 and felt like his breathing was getting worse. He reported 2 months of filling up with mucus. He was feeling more short of breath and could only walk 4-5 blocks. A chest x-ray showed no acute cardiopulmonary disease, he was prescribed prednisone and doxycycline He was seen in the emergency department in February 2024 for swelling and a chest x-ray showed interstitial pulmonary edema, he was started on furosemide and at follow-up with primary care he felt like his breathing was improved. An echocardiogram in April showed normal LV systolic function, moderate tricuspid regurgitation, right ventricular hypertrophy, and severe pulmonary hypertension with an estimated PA systolic 77 mmHg above the right atrial pressure, and a normal IVC diameter with blunted respirophasic response. A new consult was placed for pulmonary hypertension in April 2024, I reviewed his chart and felt that the pulmonary hypertension was due to group 2 and 3, and that sildenafil or other Group 1 pulmonary hypertension treatment was not indicated. He was seen in pulmonary eval clinic on May 30 and no changes were made. Interval history: He feels 'not bad.' He has O2 that he uses at home. He doesn't use it during the day. His O2 sats were 96% today. He walks with his dog about 1/2 mile down to the end of the road to get the mail every day. He doesn't get short of breath with that, he would have in the past to the point that he would have had to sit down. He has felt better every since he was put on furosemide. He is not coughing much at all. He feels like the inhalers are working pretty well. He is sleeping OK. Pertinent medications: Torsemide Rivaroxaban Albuterol Fluticasone/salmterol Tiotropium Past medical history, surgical history, and social history reviewed in CPRS. Physical Exam: VS reviewed in CPRS Gen - well appearing elderly man CV - RRR No mgr Pulm - bibasilar crackles Ext - no edema PFTs (personally reviewed and interpreted): FVC 2.70 (89%) FEV1 1.55 (67%) FEV1/FVC 0.57 DLCO 34% FEV1 and FVC are improved from previous, DLCO is stable Chest imaging (personally reviewed and interpreted): CT chest May 2023: 1. Overall improvement in variable mixed pulmonary parenchymal opacities previously progressed from August 2019, superimposed on combination upper lobe predominant subpleural bullous change, and moderate to severe upper lobe centrilobular emphysema. Prior most dense consolidation with associated bronchiectasis in posterior left upper lobe now nearly completely resolved. Other relatively dense bandlike pulmonary prior opacities have also improved orresolved. Findings suggest resolving multifocal infectious or inflammatory [...] cortical cysts. 9. Small bilateral adrenal adenomas. Labs (personally reviewed and interpreted): Eosinophils 0.24 in February 2024 BNP 745 in April 2024, repeat in May was 273 Most recent bicarb 35 in May 2024 Labs, tests and imaging results listed in pulmonary note were discussed with patient. Assessment and plan: 78 year old man with a history of COPD, paraseptal emphysema, ILD, group II and III (maybe group IV as well) PHTN here for follow up. He is feeling much better, his dyspnea is greatly improved. I suspect this is primarily from diuresis which would also account for his improved spirometry. For his COPD and emphysema, we will continue triple inhaler therapy. He is not having exacerbations, but we will continue ICS given his eos of 0.24 previously. For his ILD, we will obtain a repeat chest CT. It is difficult to assess for any progression because of the improvemen in his spirometry with diuresis. His DLCO is stable, but I would have also expected this to improve with diuresis. It is possible that his pulmonary edema has improved and his ILD has worsened. For his pulmonary hypertension, he is improved with diuresis. With his parenchymal lung disease he almost certainly has some group III PHTN, but I suspect there may be a component of group II as well. He is not currently on an SGLT2 inhibitor. I will defer to primary care whether to manage this or refer to cardiology/CHF clinic. For his chronic hypoxic respiratory failure, he does not require o2 at rest (he was 96% on room air today. I asked him to check his oxygen saturations at home and restart O2 of sats were < 85% with exertion. I will see him back in 12 months, sooner if needed, and will follow up the results of his upcoming CT chest. /johana/ ANTONIO KOTHARI MD PAC STAFF PHYSICIAN Signed: 07/20/2024 14:04 07/20/2024 ADDENDUM STATUS: COMPLETED Alerting pulmonary RN to help track results of CT chest. Alerting primary care to question of whether he should be on an SGLT2 inhibitor. /es/ ANTONIO KOTHARI MD PAC STAFF PHYSICIAN Signed: 07/20/2024 14:05 Receipt Acknowledged By: 07/20/2024 14:14 /johana/ Toney Pratt APRN, JANELLE Family Nurse Practitioner 07/20/2024 14:16 /johana/ MG NGUYỄN RN REGISTERED NURSE MG NGUYỄN [facility] Jul 20, 2024 02:04 PM ADDENDUM: LOCAL TITLE: Addendum STANDARD TITLE: ADDENDUM DATE OF NOTE: JUL 20, 2024@14:04:50 ENTRY DATE: JUL 20, 2024@14:04:50 AUTHOR: ANTONIO KOTHARI EXP COSIGNER: URGENCY: STATUS: COMPLETED Alerting pulmonary RN to help track results of CT chest. Alerting primary care to question of whether he should be on an SGLT2 inhibitor. 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 Previous serologic workup was normal other than mildly elevated CRP and ESR, prior sputum cultures have grown Cladosporium and Fusarium, but no AFB. At a visit in June 2023 his imaging was stable and we held off on antifibrotic's due to overall improvement in groundglass opacities and improvement in a dense consolidation and bronchiectasis in the left upper lobe. He was last seen in December 2023 and felt like his breathing was getting worse. He reported 2 months of filling up with mucus. He was feeling more short of breath and could only walk 4-5 blocks. A chest x-ray showed no acute cardiopulmonary disease, he was prescribed prednisone and doxycycline He was seen in the emergency department in February 2024 for swelling and a chest x-ray showed interstitial pulmonary edema, he was started on furosemide and at follow-up with primary care he felt like his breathing was improved. An echocardiogram in April showed normal LV systolic function, moderate tricuspid regurgitation, right ventricular hypertrophy, and severe pulmonary hypertension with an estimated PA systolic 77 mmHg above the right atrial pressure, and a normal IVC diameter with blunted respirophasic response. A new consult was placed for pulmonary hypertension in April 2024, I reviewed his chart and felt that the pulmonary hypertension was due to group 2 and 3, and that sildenafil or other Group 1 pulmonary hypertension treatment was not indicated. He was seen in pulmonary eval clinic on May 30 and no changes were made. Interval history: He feels 'not bad.' He has O2 that he uses at home. He doesn't use it during the day. His O2 sats were 96% today. He walks with his dog about 1/2 mile down to the end of the road to get the mail every day. He doesn't get short of breath with that, he would have in the past to the point that he would have had to sit down. He has felt better every since he was put on furosemide. He is not coughing much at all. He feels like the inhalers are working pretty well. He is sleeping OK. Pertinent medications: Torsemide Rivaroxaban Albuterol Fluticasone/salmterol Tiotropium Past medical history, surgical history, and social history reviewed in CPRS. Physical Exam: VS reviewed in CPRS Gen - well appearing elderly man CV - RRR No mgr Pulm - bibasilar crackles Ext - no edema PFTs (personally reviewed and interpreted): FVC 2.70 (89%) FEV1 1.55 (67%) FEV1/FVC 0.57 DLCO 34% FEV1 and FVC are improved from previous, DLCO is stable Chest imaging (personally reviewed and interpreted): CT chest May 2023: 1. Overall improvement in variable mixed pulmonary parenchymal opacities previously progressed from August 2019, superimposed on combination upper lobe predominant subpleural bullous change, and moderate to severe upper lobe centrilobular emphysema. Prior most dense consolidation with associated bronchiectasis in posterior left upper lobe now nearly completely resolved. Other relatively dense bandlike pulmonary prior opacities have also improved orresolved. Findings suggest resolving multifocal infectious or inflammatory [...] cortical cysts. 9. Small bilateral adrenal adenomas. Labs (personally reviewed and interpreted): Eosinophils 0.24 in February 2024 BNP 745 in April 2024, repeat in May was 273 Most recent bicarb 35 in May 2024 Labs, tests and imaging results listed in pulmonary note were discussed with patient. Assessment and plan: 78 year old man with a history of COPD, paraseptal emphysema, ILD, group II and III (maybe group IV as well) PHTN here for follow up. He is feeling much better, his dyspnea is greatly improved. I suspect this is primarily from diuresis which would also account for his improved spirometry. For his COPD and emphysema, we will continue triple inhaler therapy. He is not having exacerbations, but we will continue ICS given his eos of 0.24 previously. For his ILD, we will obtain a repeat chest CT. It is difficult to assess for any progression because of the improvemen in his spirometry with diuresis. His DLCO is stable, but I would have also expected this to improve with diuresis. It is possible that his pulmonary edema has improved and his ILD has worsened. For his pulmonary hypertension, he is improved with diuresis. With his parenchymal lung disease he almost certainly has some group III PHTN, but I suspect there may be a component of group II as well. He is not currently on an SGLT2 inhibitor. I will defer to primary care whether to manage this or refer to cardiology/CHF clinic. For his chronic hypoxic respiratory failure, he does not require o2 at rest (he was 96% on room air today. I asked him to check his oxygen saturations at home and restart O2 of sats were < 85% with exertion. I will see him back in 12 months, sooner if needed, and will follow up the results of his upcoming CT chest. /es/ ANTONIO KOTHARI MD [facility] STAFF PHYSICIAN Signed: 07/20/2024 14:04 07/20/2024 ADDENDUM STATUS: UNSIGNED You may not VIEW this UNSIGNED Addendum. ANTONIO KOTHARI [facility] Jul 20, 2024 01:14 PM INTERNAL MEDICINE OUTPATIENT NOTE: LOCAL TITLE: MEDICINE CLINIC NURSING NOTE STANDARD TITLE: INTERNAL MEDICINE OUTPATIENT NOTE DATE OF NOTE: JUL 20, 2024@13:14 ENTRY DATE: JUL 20, 2024@13:14:39 AUTHOR: PRIETO GREENBERG EXP COSIGNER: URGENCY: STATUS: COMPLETED TYPE OF VISIT: Appointment Check In Type of appointment: In-person appointment REASON FOR VISIT: Pulm visit with PFT completed. ALLERGIES: PENICILLIN (May 15, 1994) SIMVASTATIN (Apr 01, 2006) LOBSTER (Jul 12, 2007) SCALLOPS (Jul 12, 2007) LISINOPRIL (Apr 03, 2008) METOPROLOL (Apr 03, 2008) FISH (Dec 04, 2009) CONTRAST MEDIA (Jul 06, 2022) ZOLPIDEM (Dec 20, 2023) TOPIRAMATE (January 03, 2024) VITAL SIGNS: Blood Pressure: 148/93 (07/20/2024 13:07) Pulse: 64 (07/20/2024 13:07) Respiration: 17 (07/20/2024 13:07) Temperature: 96.7 F [35.9 C] (07/20/2024 13:07) Weight: 153.5 lb [69.63 kg] (07/20/2024 13:07) Height: 65 in [165.1 cm] (07/20/2024 13:07) BMI: 25.6 O2 Sat: 96% (07/20/2024 13:07) Pain: 0 (07/20/2024 13:07) PAIN SCREEN: Patient is not having significant pain that they wish to discuss with their provider today. MEDICATION Active Outpatient Medications (including Supplies): ALBUTEROL 90MCG (CFC-F) 200D ORAL INHL INHALE 2 PUFFS BY ACTIVE INHALATION EVERY 4 HOURS NEEDED FOR SHORTNESS OF BREATH ATORVASTATIN CALCIUM 40MG TAB TAKE ONE TABLET BY MOUTH ACTIVE (S) EVERY DAY FOR CHOLESTEROL BRIMONIDINE TARTRATE 0.2% OPH SOLN INSTILL 1 DROP IN BOTH ACTIVE EYES TWICE A DAY FOR GLAUCOMA SPACE 10 MINUTES APART FROM OTHER EYE DROPS CALCIUM CARBONATE 650MG (CA 260MG) TAB TAKE ONE TABLET BY ACTIVE MOUTH EVERY DAY CARBOXYMETHYLCELLULOSE NA 0.25% OPH SOLN INSTILL 2 DROPS ACTIVE IN OPERATIVE EYE EVERY 2 HOURS NEEDED FOR DRY EYES CARBOXYMETHYLCELLULOSE NA 0.25% OPH SOLN INSTILL 2 DROPS PENDING IN OPERATIVE EYE EVERY 2 HOURS NEEDED CHOLECALCIF 25MCG (D3-1,000UNIT) TAB TAKE ONE TABLET BY ACTIVE (S) MOUTH EVERY DAY CYANOCOBALAMIN 500MCG TAB TAKE ONE TABLET BY MOUTH EVERY ACTIVE DAY FOR B12 SUPPLEMENT DICLOFENAC NA 1% TOP GEL APPLY 2 GRAMS TOPICALLY THREE ACTIVE TIMES A DAY NEEDED FOOT PAIN FLUTICAS 500/SALMETEROL 50 INHL DISK 60 INHALE 1 PUFF BY ACTIVE INHALATION TWICE A DAY FOR COPD *RINSE MOUTH AFTER EACH USE* FLUTICASONE PROP 50MCG 120D NASAL INHL SPRAY 2 SPRAYS IN ACTIVE (S) EACH NOSTRIL EVERY DAY FOR CONGESTION GABAPENTIN 600MG TAB TAKE ONE TABLET BY MOUTH TWICE A DAY ACTIVE (S) FOR PAIN AND NUMBNESS LIDOCAINE 5% OINT APPLY MODERATE AMOUNT TOPICALLY THREE ACTIVE TIMES A DAY NEEDED FOR PAIN LIDOCAINE 5% PATCH APPLY 1 PATCH TOPICALLY EVERY DAY ACTIVE NEEDED POTASSIUM CL 20MEQ SA TAB (DISPERSIBLE) TAKE ONE TABLET BY ACTIVE (S) MOUTH EVERY DAY FOR POTASSIUM SUPPLEMENT RIVAROXABAN 20MG TAB TAKE ONE TABLET BY MOUTH EVERY DAY ACTIVE WITH THE LARGEST MEAL OF THE DAY TO TREAT AND/OR PREVENT BLOOD CLOTS SERTRALINE HCL 100MG TAB TAKE TWO TABLETS BY MOUTH EVERY ACTIVE (S) DAY FOR DEPRESSION & PTSD TELMISARTAN 20MG TAB TAKE ONE TABLET BY MOUTH EVERY DAY ACTIVE FOR BLOOD PRESSURE TIOTROPIUM 2.5MCG/ACTUAT 60D ORAL INHL INHALE TWO PUFFS BY ACTIVE INHALATION EVERY DAY FOR COPD TORSEMIDE 20MG TAB TAKE ONE TABLET BY MOUTH EVERY DAY FOR ACTIVE EXCESS FLUID VANICREAM TOP CREAM APPLY THIN LAYER TOPICALLY DIRECTED ACTIVE FOR DRY SKIN Over the Counter/Herbal Medications: The patient denies taking any outside medications or herbals. Pulmonary Clinic General Appearance: No acute distress Respiratory Assessment Is this a change from your last visit to Pulmonary? Yes, specify: Increased function /es/ PRIETO GREENBERG LPN LICENSED PRACTICAL NURSE Signed: 07/20/2024 13:19 PRIETO GREENBERG [facility] Jul 20, 2024 09:03 AM PULMONARY [place] OUTPATIENT NOTE: LOCAL TITLE: PULMONARY CLINIC NOTE STANDARD TITLE: PULMONARY ATTENDING OUTPATIENT NOTE DATE OF NOTE: JUL 20, 2024@09:03 ENTRY DATE: JUL 20, 2024@09:03:58 AUTHOR: ANTONIO KOTHARI EXP COSIGNER: URGENCY: STATUS: COMPLETED PULMONARY CLINIC NOTE Has ADDENDA Patient summary: 78-year-old man with a history of oropharyngeal cancer with resection in the , coronary artery disease with PCI 2003, heart failure with preserved ejection fraction, COPD with severe obstruction, and pulmonary hypertension who is followed in pulmonary clinic for chronic hypoxic respiratory failure and abnormal chest CT. Previous serologic workup was normal other than mildly elevated CRP and ESR, prior sputum cultures have grown Cladosporium and Fusarium, but no AFB. At a visit in June 2023 his imaging was stable and we held off on antifibrotic's due to overall improvement in groundglass opacities and improvement in a dense consolidation and bronchiectasis in the left upper lobe. He was last seen in December 2023 and felt like his breathing was getting worse. He reported 2 months of filling up with mucus. He was feeling more short of breath and could only walk 4-5 blocks. A chest x-ray showed no acute cardiopulmonary disease, he was prescribed prednisone and doxycycline He was seen in the emergency department in February 2024 for swelling and a chest x-ray showed interstitial pulmonary edema, he was started on furosemide and at follow-up with primary care he felt like his breathing was improved. An echocardiogram in April showed normal LV systolic function, moderate tricuspid regurgitation, right ventricular hypertrophy, and severe pulmonary hypertension with an estimated PA systolic 77 mmHg above the right atrial pressure, and a normal IVC diameter with blunted respirophasic response. A new consult was placed for pulmonary hypertension in April 2024, I reviewed his chart and felt that the pulmonary hypertension was due to group 2 and 3, and that sildenafil or other Group 1 pulmonary hypertension treatment was not indicated. He was seen in pulmonary eval clinic on May 30 and no changes were made. Interval history: He feels 'not bad.' He has O2 that he uses at home. He doesn't use it during the day. His O2 sats were 96% today. He walks with his dog about 1/2 mile down to the end of the road to get the mail every day. He doesn't get short of breath with that, he would have in the past to the point that he would have had to sit down. He has felt better every since he was put on furosemide. He is not coughing much at all. He feels like the inhalers are working pretty well. He is sleeping OK. Pertinent medications: Torsemide Rivaroxaban Albuterol Fluticasone/salmterol Tiotropium Past medical history, surgical history, and social history reviewed in CPRS. Physical Exam: VS reviewed in CPRS Gen - well appearing elderly man CV - RRR No mgr Pulm - bibasilar crackles Ext - no edema PFTs (personally reviewed and interpreted): FVC 2.70 (89%) FEV1 1.55 (67%) FEV1/FVC 0.57 DLCO 34% FEV1 and FVC are improved from previous, DLCO is stable Chest imaging (personally reviewed and interpreted): CT chest May 2023: 1. Overall improvement in variable mixed pulmonary parenchymal opacities previously progressed from August 2019, superimposed on combination upper lobe predominant subpleural bullous change, and moderate to severe upper lobe centrilobular emphysema. Prior most dense consolidation with associated bronchiectasis in posterior left upper lobe now nearly completely resolved. Other relatively dense bandlike pulmonary prior opacities have also improved orresolved. Findings suggest resolving multifocal infectious or inflammatory [...] cortical cysts. 9. Small bilateral adrenal adenomas. Labs (personally reviewed and interpreted): Eosinophils 0.24 in February 2024 BNP 745 in April 2024, repeat in May was 273 Most recent bicarb 35 in May 2024 Labs, tests and imaging results listed in pulmonary note were discussed with patient. Assessment and plan: 78 year old man with a history of COPD, paraseptal emphysema, ILD, group II and III (maybe group IV as well) PHTN here for follow up. He is feeling much better, his dyspnea is greatly improved. I suspect this is primarily from diuresis which would also account for his improved spirometry. For his COPD and emphysema, we will continue triple inhaler therapy. He is not having exacerbations, but we will continue ICS given his eos of 0.24 previously. For his ILD, we will obtain a repeat chest CT. It is difficult to assess for any progression because of the improvemen in his spirometry with diuresis. His DLCO is stable, but I would have also expected this to improve with diuresis. It is possible that his pulmonary edema has improved and his ILD has worsened. For his pulmonary hypertension, he is improved with diuresis. With his parenchymal lung disease he almost certainly has some group III PHTN, but I suspect there may be a component of group II as well. He is not currently on an SGLT2 inhibitor. I will defer to primary care whether to manage this or refer to cardiology/CHF clinic. For his chronic hypoxic respiratory failure, he does not require o2 at rest (he was 96% on room air today. I asked him to check his oxygen saturations at home and restart O2 of sats were < 85% with exertion. I will see him back in 12 months, sooner if needed, and will follow up the results of his upcoming CT chest. /johana/ ANTONIO KOTHARI MD [facility] STAFF PHYSICIAN Signed: 07/20/2024 14:04 07/20/2024 ADDENDUM STATUS: COMPLETED Alerting pulmonary RN to help track results of CT chest. Alerting primary care to question of whether he should be on an SGLT2 inhibitor. /johana/ ANTONIO KOTHARI MD [facility] STAFF PHYSICIAN Signed: 07/20/2024 14:05 Receipt Acknowledged By: 07/20/2024 14:14 /johana/ Toney Pratt APRN, SEX OFFENDER TREATMENT PROFESSIONAL Family Nurse Practitioner 07/20/2024 14:16 /es/ MG NGUYỄN RN REGISTERED NURSE 07/20/2024 ADDENDUM STATUS: COMPLETED --> Earnestine please call patient to schedule Chest CT and make RN CC for the same day thank you! /johana/ MG NGUYỄN RN REGISTERED NURSE Signed: 07/20/2024 14:18 Receipt Acknowledged By: 07/24/2024 10:22 /es/ EARNESTINE Allen Front Desk Clerk 08/21/2024 ADDENDUM STATUS: COMPLETED >>Dr. Kothari - Chest CT completed 08/21/24 - will enroll in [facility] to f/u new nodule Impression: 1. 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 No significant progression from 06/22/2023. 2. New 3 mm solid nodule in the left upper lobe. Other small pulmonary nodules are unchanged. Recommend follow-up according to Fleischner Society 2017 guidelines. Alternatively, this can be followed on LDCT lung cancer screening in 1 year if the patient qualifies. 3. Additional findings as detailed in the report. /es/ SHANTHI BUSTILLO RN PULMONARY SQUEEZER OPERATOR Signed: 08/22/2024 08:48 Receipt Acknowledged By: * AWAITING SIGNATURE * ANTONIO KOTHARI [facility]
--- OUTSIDE RECORDS SUMMARY | 2024-08-22 03:30 | XMS_ITS | Encounter Summary ---
Author Name [facility] [place] Address [address] [place] [address] Care Team Providers Care [employer] Systems Safety Engineer Name Role Phone EDUARDO PRATT Primary Care [...] PART A Sep 30, 2010 PART A [id number] Isaac IGLESIAS PATIENT MEDICARE (WNR) MEDICARE (M) PART A Sep 30, 2010 PART A [id number] [phone] Isaac IGLESIAS PATIENT Selected Encounter This section includes the information on record at [place] for the Encounter. 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 Date/Time Primary/Secondary Diagnosis Diagnosis Name Provider Source Aug 24, 2024 12:51 PM PRIMARY Clonic hemifacial spasm, right BRADEN RING [facility] Plan of Treatment: Future Appointments (+ 6 months) and Future Tests (+/- 45 days) The Plan of Treatment section includes future care activities for the patient from [facility] [place] [facility] This section includes future appointments and future orders which are active, pending or scheduled. Future Appointments This section includes appointments that were scheduled to occur 6 months from the date of the Encounter, up to a maximum of 20 appointments. The data comes from all [place] [facility]. Appointment Date/Time Appointment Type Appointme nt Facility Name Sep 05, 2024 08:30 AM AMBULATORY - SURGERY [facility] Sep 08, 2024 11:00 AM AMBULATORY - SURGERY [facility] Sep 19, 2024 09:00 AM AMBULATORY - MEDICINE [facility] Sep 27, 2024 08:30 AM AMBULATORY - PSYCHIATRY [facility] Sep 27, 2024 10:00 AM AMBULATORY - MEDICINE [facility] Oct 05, 2024 07:00 AM AMBULATORY - NONE [facility] Oct 05, 2024 08:00 AM AMBULATORY - MEDICINE [facility] Oct 24, 2024 07:45 AM AMBULATORY - NONE [facility] Nov 10, 2024 09:00 AM AMBULATORY - NONE [facility] Nov 17, 2024 11:00 AM AMBULATORY - NONE [facility] Dec 11, 2024 08:30 AM AMBULATORY - REHAB [facility] January 16, 2025 08:20 AM AMBULATORY - SURGERY [facility] January 16, 2025 08:40 AM AMBULATORY - SURGERY [facility] January 17, 2025 08:00 AM [facility] Feb 13, 2025 02:00 PM AMBULATORY - PSYCHIATRY [facility] Vital Signs: All taken on the encounter date This section contains inpatient and outpatient Vital Signs collected on the date of the Encounter. Date/Time Temperature Pulse Blood Pressure Respiratory Rate SP02 Pain Height Weight Body Mass Index Source Aug 22, 2024 08:28 AM 93 116/66 20 92 4 [facility] Social History: Smoking Status (Most current) and Tobacco Use (All prior to encounter date) This section includes the most current, and the historical, smoking and tobacco- related health factors from the [place] facility where the Encounter took place. Current Smoking Status This section includes the most current smoking, or tobacco-related health factor, from the [place] facility where the Encounter took place. Date/Time Current Smoking Status Comment Facil ity Oct 11, 2023 08:00 AM VA-TOBACCO FORMER USER [facility] Tobacco Use History This section includes a history of the smoking, or tobacco-related health factors, that were collected on or before the date of the Encounter. The data comes from the [place] facility where the Encounter took place. Date/Time Smoking Status/Tobacco Use Comment F acility Oct 11, 2023 08:00 AM VA-TOBACCO QUIT 15 YRS OR MORE [facility] Aug 17, 2022 09:15 AM VA-TOBACCO FORMER USER [facility] Aug 17, 2022 09:15 AM VA-TOBACCO QUIT 15 YRS OR MORE [facility] Oct 27, 2021 09:00 AM VA-TOBACCO FORMER USER [facility] Oct 27, 2021 09:00 AM VA-TOBACCO QUIT 15 YRS OR MORE [facility] Sep 19, 2020 09:00 AM VA-TOBACCO FORMER USER [facility] Sep 19, 2020 09:00 AM VA-TOBACCO QUIT 15 YRS OR MORE [facility] Dec 20, 2018 10:09 AM VA-TOBACCO FORMER USER [facility] Dec 20, 2018 10:09 AM VA-TOBACCO QUIT 15 YRS OR MORE [facility] Dec 07, 2017 09:12 AM FORMER TOBACCO USER 7Y OR GREATE R [facility] Apr 21, 2017 08:35 AM FORMER TOBACCO USER 7Y OR GREATE R [facility] Apr 28, 2016 08:20 AM FORMER TOBACCO USER 7Y OR GREATE R [facility] January 22, 2015 10:07 AM FORMER TOBACCO USER 7Y OR GREATE R [facility] January 25, 2014 10:11 AM FORMER TOBACCO USER 7Y OR GREATE R [facility] December 30, 2011 08:00 AM FORMER TOBACCO USER 7Y OR GREATE R [facility] January 21, 2011 01:16 PM FORMER TOBACCO USE >1Y <7Y [facility] Nov 27, 2009 08:09 AM FORMER TOBACCO USE >1Y <7Y [facility] Dec 27, 2008 12:32 AM FORMER TOBACCO USE >1Y <7Y [facility] January 03, 2008 12:52 PM FORMER TOBACCO USE >1Y <7Y [facility] January 11, 2007 10:43 AM FORMER TOBACCO USE >1Y <7Y [facility] Advance Directives: All historical and current Section Date Range: From patient's date of to the date document was created. This section includes ALL of a patient's completed or amended [place] Advance and Rescinded Directives. The entries below indicate that a directive exists for the patient, but an actual copy is not included with this document. The data comes from all [facility]. Date Advance Directives Provider Source Dec 04, 2009 CLINICAL WARNING KAMARI [facility] Radiology Reports: +/- 30 days of [...] the Encounter. The data comes from all [place] treatment facilities. Date/Time Radiology Report Provider Source Aug 21, 2024 07:[address] (C) CHEST (P): ROSS IGLESIAS [id number] -1945 M Exm Date: AUG 21, 2024@07:49 Req Phys: ANTONIO AREVALO Pat Loc: [facility] PULJovi AREVALO (Req'g Loc) [facility] [place]: CT IMAGING Service: [place] [address] (Case 111 COMPLETE) CT (C) CHEST W/O CONTRAST (CT Detailed) CPT:39021 Reason for Study: Follow up ILD Clinical History: Per Joint Commission Standards, by signing this diagnostic imaging request the ordering provider confirms they have considered patients age and recent imaging history. Defer to radiologist for final CT protocol. Contact number for responsible provider who can be reached for any questions or notifications of critical findings: [phone] na LAST 3: Collection DT Specimen Test Name [...] .CREAT EGFR(CKD-E 51 L Ref: >=60 Allergies: ([place] only) PENICILLIN (May 15, 1994) SIMVASTATIN (Apr 01, 2006) LOBSTER (Jul 12, 2007) SCALLOPS (Jul 12, 2007) LISINOPRIL (Apr 03, 2008) METOPROLOL (Apr 03, 2008) FISH (Dec 04, 2009) CONTRAST MEDIA (Jul 06, 2022) ZOLPIDEM (Dec 20, 2023) TOPIRAMATE (January 03, 2024) Report Status: Verified Date Reported: AUG 21, 2024 Date Verified: AUG 21, 2024 Supervisor Pyrotechnic Loading E-Sig:/ES/JULIANMARGIE MANDUJANO MD Report: CT chest without contrast (high resolution) 08/21/2024 History: Follow-up interstitial lung disease. Comparison: 06/22/2023 Technique: CT of the chest without contrast including supine inspiratory, supine expiratory, and prone inspiratory acquisitions per high resolution interstitial lung disease protocol. Axial and coronal reconstructions were obtained and reviewed. Dose: Total DLP 625 mGy*cm Findings: Advanced, upper lobe predominant pulmonary emphysema. Subpleural, lower lung predominant fibrotic changes with reticulation and traction bronchiolectasis. No honeycombing. No significant progression from 06/22/2023. Minimal adherent secretions in the central airways. Mild central bronchial wall thickening in the lower lobes. No significant mucous plugging. Minimal air trapping in the mid to lower lungs bilaterally, likely related to small airways disease. 7.5 mm smoothly marginated solid nodule along the right major fissure (2/179), likely intrapulmonary lymph node, unchanged. New 3 mm solid peribronchovascular nodule in the left upper lobe (2/95). Visualized thyroid is unremarkable. Atherosclerotic calcifications of the aorta and coronary arteries. Heart is upper limits of normal in size. No pericardial or pleural effusion. Enlarged main pulmonary artery, measuring 3.6 cm, suggests changes of pulmonary arterial hypertension, unchanged. Small cyst in the left hepatic lobe and tiny cyst in the right hepatic lobe. Right adrenal gland thickening measuring 1 cm, 7 Hounsfield units, compatible with benign adenoma, unchanged. Left adrenal gland is unremarkable. Bilateral renal cysts, similar to 09/07/2019. Previous subcentimeter hyperattenuating lesion upper pole left kidney is less conspicuous on today's study, overall unchanged (3/296). Calcified granuloma in the spleen. Arterial calcifications in the upper abdomen. Prominent lymph nodes in the upper abdomen, some stable and some minimally increased from 03/01/2023, for example 0.8 cm aortocaval node (3/304), previously measured 0.6 cm, and stable 1.2 cm short axis retroperitoneal node (3/293), likely reactive. Arthritic changes in the shoulders and spine. No suspicious bone lesion. Bilateral gynecomastia. Impression: 1. Combined pulmonary fibrosis and emphysema [...] Additional findings as detailed in the report. Report Sign Date/Time: 08/21/2024 9:22 AM Primary Interpreting Staff: JULIAN MANDUJANO MD, STAFF RADIOLOGIST (Supervisor Pyrotechnic Loading) /NRM JULIAN MANDUJANO [facility] Encounter Notes: All associated encounter notes This section contains the clinical notes associated to the Encounter. Date/Time Encounter Note(s) Provider Source Aug 24, 2024 12:45 PM NEUROLOGY ATTENDING NOTE: LOCAL TITLE: NEUROLOGY CLINIC NOTE STANDARD TITLE: NEUROLOGY ATTENDING NOTE DATE OF NOTE: AUG 24, 2024@12:45 ENTRY DATE: AUG 24, 2024@12:45:49 AUTHOR: BRADEN RING COSIGNER: URGENCY: STATUS: COMPLETED Mr. Iglesias is a 78-year-old patient of Dr. 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 In Dr. Peewee montenegro I was scheduled to see the patient. He responded well to the last series of injections given in March 2024 that he says after about 6 weeks the effect began to diminish and he is now returned to baseline. He continues to find the facial spasm bothersome and disruptive. He had several episodes of during the 5 or 10 minutes interview that I conducted. I used onabotulinum toxin A to inject the right orbicularis oculi muscle using exactly the same dosing as used by Dr. Arambula at his last clinic visit. Specifically I injected the botulinum toxin subdermally in the following locations: Superior lateral orbicularis oculi 5 units, lateral central orbicularis oculi 5 units, inferior lateral orbicularis oculi 3 units. There were no complications of the procedure and I scheduled the patient to return to Dr. Arambula's clinic in 4 months. /johana/ Braden Ring MD STAFF PHYSICIAN NEUROLOGY Signed: 08/24/2024 12:52 BRADEN RING [facility] Aug 22, 2024 08:30 AM NEUROLOGY NURSING OUTPATIENT NOTE: LOCAL TITLE: NEUROLOGY CLINIC NURSING NOTE STANDARD TITLE: NEUROLOGY NURSING OUTPATIENT NOTE DATE OF NOTE: AUG 22, 2024@08:30 ENTRY DATE: AUG 22, 2024@08:30:17 AUTHOR: SHIRA NICHOLS COSIGNER: URGENCY: STATUS: COMPLETED Type of visit: Appointment Check In Reason for Visit: Here for 60 min appt. Gets all medication from the [place]. Vital Signs: Blood Pressure: 116/66 (08/22/2024 08:28) Pulse: 93 (08/22/2024 08:28) Respiration: 20 (08/22/2024 08:28) Temperature: 97.7 F [36.5 C] (07/24/2024 07:41) Weight: 153.5 lb [69.63 kg] (07/20/2024 13:07) Height: 65 in [165.1 cm] (07/20/2024 13:07) BMI: 25.6 Pain: 4 (08/22/2024 08:28) Allergies: PENICILLIN (May 15, 1994) SIMVASTATIN (Apr 01, 2006) LOBSTER (Jul 12, 2007) SCALLOPS (Jul 12, 2007) LISINOPRIL (Apr 03, 2008) METOPROLOL (Apr 03, 2008) FISH (Dec 04, 2009) CONTRAST MEDIA (Jul 06, 2022) ZOLPIDEM (Dec 20, 2023) TOPIRAMATE (January 03, 2024) Medications: Active Outpatient Medications and Supplies: Active Outpatient Medications (including Supplies): Active Outpatient Medications Status 1) ALBUTEROL 90MCG (CFC-F) 200D ORAL INHL INHALE 2 PUFFS BY ACTIVE INHALATION EVERY 4 HOURS NEEDED Indication: FOR SHORTNESS OF BREATH 2) ATORVASTATIN CALCIUM 40MG TAB TAKE ONE TABLET BY MOUTH EVERY ACTIVE (S) DAY FOR CHOLESTEROL 3) BRIMONIDINE TARTRATE 0.2% OPH SOLN INSTILL 1 DROP IN BOTH ACTIVE EYES TWICE A DAY FOR GLAUCOMA SPACE 10 MINUTES APART FROM OTHER EYE DROPS 4) CALCIUM CARBONATE 650MG (CA 260MG) TAB TAKE ONE TABLET BY ACTIVE (S) MOUTH EVERY DAY 5) CARBOXYMETHYLCELLULOSE NA 0.25% OPH SOLN INSTILL 2 DROPS IN ACTIVE OPERATIVE EYE EVERY 2 HOURS NEEDED Indication: FOR DRY EYES 6) CHOLECALCIF 25MCG (D3-1,000UNIT) TAB TAKE ONE TABLET BY ACTIVE MOUTH EVERY DAY 7) CYANOCOBALAMIN 500MCG TAB TAKE ONE TABLET BY MOUTH EVERY DAY ACTIVE Indication: FOR B12 SUPPLEMENT 8) DICLOFENAC NA 1% TOP GEL APPLY 2 GRAMS TOPICALLY THREE TIMES ACTIVE A DAY NEEDED Indication: FOOT PAIN 9) FLUTICAS 500/SALMETEROL 50 INHL DISK 60 INHALE 1 PUFF BY ACTIVE INHALATION TWICE A DAY *RINSE MOUTH AFTER EACH USE* Indication: FOR COPD 10) FLUTICASONE PROP 50MCG 120D NASAL INHL SPRAY 2 SPRAYS IN ACTIVE (S) EACH NOSTRIL EVERY DAY Indication: FOR CONGESTION 11) GABAPENTIN 600MG TAB TAKE ONE TABLET BY MOUTH TWICE A DAY ACTIVE Indication: FOR PAIN AND NUMBNESS 12) LIDOCAINE 5% OINT APPLY MODERATE AMOUNT TOPICALLY THREE ACTIVE TIMES A DAY NEEDED Indication: FOR PAIN 13) LIDOCAINE 5% PATCH APPLY 1 PATCH TOPICALLY EVERY DAY ACTIVE NEEDED Indication: FOR UP TO 12 HOURS FOR PAIN 14) POTASSIUM CL 20MEQ SA TAB (DISPERSIBLE) TAKE ONE TABLET BY ACTIVE MOUTH EVERY DAY Indication: FOR POTASSIUM SUPPLEMENT 15) RIVAROXABAN 20MG TAB TAKE ONE TABLET BY MOUTH EVERY DAY WITH ACTIVE THE LARGEST MEAL OF THE DAY TO TREAT AND/OR PREVENT BLOOD CLOTS 16) SERTRALINE HCL 100MG TAB TAKE TWO TABLETS BY MOUTH EVERY DAY ACTIVE Indication: FOR DEPRESSION & PTSD 17) TELMISARTAN 20MG TAB TAKE ONE TABLET BY MOUTH EVERY DAY ACTIVE Indication: FOR BLOOD PRESSURE 18) TIOTROPIUM 2.5MCG/ACTUAT 60D ORAL INHL INHALE TWO PUFFS BY ACTIVE INHALATION EVERY DAY Indication: FOR COPD 19) TORSEMIDE 20MG TAB TAKE ONE TABLET BY MOUTH EVERY DAY ACTIVE Indication: FOR EXCESS FLUID 20) VANICREAM TOP CREAM APPLY THIN LAYER TOPICALLY DIRECTED ACTIVE Indication: FOR DRY SKIN Patient reports the following changes regarding the current pharmacy list of medications: The above medication list confirmed with patient. A copy of the above medication list given to the MD for review and update. Provider will give printed copy of medication list to patient with any changes documented on printed medication list. /johana/ SHIRA NICHOLS LPN CLINICAL LICENSED PRACTICAL NURSE Signed: 08/22/2024 08:32 SHIRA NICHOLS [facility]
--- OUTSIDE RECORDS SUMMARY | 2024-08-22 03:48 | XMS_ITS | Encounter Summary ---
Author Name [facility] [place] Organization [place] Address [address] [place] [address] Care Team Providers Care Linotyper Name Role Phone EDUARDO PRATT Primary Care [...] PART A Sep 30, 2010 PART A [phone] Isaac IGLESIAS PATIENT MEDICARE ([place]NR) MEDICARE (M) PART A Sep 30, 2010 PART A [id number] [phone] Isaac IGLESIAS PATIENT Selected Encounter This section includes the information on record at [place] for the Encounter. Date/Time Encounter Type Encounter Description Reason Provider Source Aug 22, 2024 08:48 AM Outpatient Encounter ADMIN PAT ACTIVTIES (MASNONCT) SHANTHI BUSTILLO Encounter Template Text not used by [place] Plan of Treatment: Future Appointments (+ 6 months) and Future Tests (+/- 45 days) The Plan of Treatment section includes future care activities for the patient from all [facility]. This section includes future appointments and future orders which are active, pending or scheduled. Future Appointments This section includes appointments that were scheduled to occur 6 months from the date of the Encounter, up to a maximum of 20 appointments. The data comes from all [facility]. Appointment Date/Time Appointment Type Appointme nt Facility Name Sep 05, 2024 08:30 AM AMBULATORY - SURGERY [facility] Sep 08, 2024 11:00 AM AMBULATORY - SURGERY [facility] Sep 19, 2024 09:00 AM AMBULATORY - MEDICINE [facility] Sep 27, 2024 08:30 AM AMBULATORY - PSYCHIATRY [facility] Sep 27, 2024 10:00 AM AMBULATORY - MEDICINE [facility] Oct 05, 2024 07:00 AM AMBULATORY - NONE [facility] Oct 05, 2024 08:00 AM AMBULATORY - MEDICINE [facility] Oct 24, 2024 07:45 AM [facility] Nov 10, 2024 09:00 AM [facility] Nov 17, 2024 11:00 AM [facility] Dec 11, 2024 08:30 AM AMBULATORY - REHAB [facility] January 16, 2025 08:20 AM AMBULATORY - SURGERY [facility] January 16, 2025 08:40 AM AMBULATORY - SURGERY [facility] January 17, 2025 08:00 AM AMBULATORY - REHAB [facility] Feb 13, 2025 02:00 PM AMBULATORY - PSYCHIATRY [facility] Vital Signs: All taken on the encounter date This section contains inpatient and outpatient Vital Signs collected on the date of the Encounter. Date/Time Temperature Pulse Blood Pressure Respiratory Rate SP02 Pain Height Weight Body Mass Index Source Aug 22, 2024 08:28 AM 93 116/66 20 92 4 [facility] Social History: Smoking Status (Most [...] 11, 2023 08:00 AM VA-TOBACCO FORMER USER [facility] [...] YRS OR MORE [facility] Aug 17, 2022 09:15 AM VA-TOBACCO FORMER USER [facility] Aug 17, 2022 09:15 AM VA-TOBACCO QUIT [...] this document. The data comes from all [facility]. Date Advance Directives Provider Source Dec 04, 2009 CLINICAL WARNING KAMARI CUMM[facility] Radiology Reports: +/- 30 days of [...] the Encounter. The data comes from all [facility] facilities. Date/Time Radiology Report Provider Source Aug 21, 2024 07:[address] (C) CHEST (P): ROSS IGLESIAS [id number] -1945 M Exm Date: AUG 21, 2024@07:49 Req Phys: ANTONIO AREVALO Pat Loc: [facility] PULJovi AREVALO (Req'g Loc) Img Loc: CT IMAGING Service: [place] [address] (Case 111 COMPLETE) CT (C) CHEST W/O CONTRAST (CT Detailed) CPT:77635 Reason for Study: Follow up ILD Clinical History: Per Joint Commission Standards, by signing this diagnostic imaging request the ordering provider confirms they have considered patients age and recent imaging history. Defer to radiologist for final CT protocol. Contact number for responsible provider who can be reached for any questions or notifications of critical findings: [phone] na LAST 3: Collection DT Specimen Test [...] .CREAT EGFR(CKD-E 51 L Ref: >=60 Allergies: ([place] only) PENICILLIN (May 15, 1994) SIMVASTATIN (Apr 01, 2006) LOBSTER (Jul 12, 2007) SCALLOPS (Jul 12, 2007) LISINOPRIL (Apr 03, 2008) METOPROLOL (Apr 03, 2008) FISH (Dec 04, 2009) CONTRAST MEDIA (Jul 06, 2022) ZOLPIDEM (Dec 20, 2023) TOPIRAMATE (January 03, 2024) Report Status: Verified Date Reported: AUG 21, 2024 Date Verified: AUG 21, 2024 Blender Snuff E-Sig:/ES/JULIAN MANDUJANO MD Report: CT chest without contrast [...] Interpreting Staff: JULIAN MANDUJANO MD, STAFF RADIOLOGIST (Blender Snuff) /NRM JULIAN MANDUJANO [facility] Encounter Notes: All associated encounter notes This section contains the clinical notes associated to the Encounter. Date/Time Encounter Note(s) Provider Source Aug 22, 2024 08:50 AM LETTERS: LOCAL TITLE: FOLLOW UP RESULTS LETTER STANDARD TITLE: LETTERS DATE OF NOTE: AUG 22, 2024@08:50 ENTRY DATE: AUG 22, 2024@08:50:39 AUTHOR: SHANTHI BUSTILLO COSIGNER: URGENCY: STATUS: COMPLETED [facility] [address] [place] [address] Jul ROSS IGLESIAS [id number] PENDING SALE TO [facility] [id number] Dear Gary: Your recent chest imaging on Jul showed: no significant progression of Pulmonary Fibrosis. in addition you have a new small nodule(s). That will be monitored. *THIS IS IMPORTANT: Your next CT scan should be scheduled for 12 months from the date of your last scan. You will receive a recall letter six weeks before your CT scan is due asking you to call to schedule the appointment. If you are scheduled for a scan in the future and you have symptoms of a chest cold at that time, please call number on appointment letter to reschedule for four weeks after symptoms improve. If you have any further questions or problems, please contact Lung Nodule Tracking staff at [phone]. SHANTHI BUSTILLO RN PULMONARY SPEECH ASSISTANT SHANTHI BUSTILLO [facility] Aug 22, 2024 08:48 AM PULMONARY NOTE: LOCAL TITLE: PULMONARY LUNG NODULE NOTE STANDARD TITLE: PULMONARY NOTE DATE OF NOTE: AUG 22, 2024@08:48 ENTRY DATE: AUG 22, 2024@08:49:01 AUTHOR: SHANTHI BUSTILLO EXP COSIGNER: URGENCY: STATUS: COMPLETED Lung Nodule Registry: The patient will be tracked by the [facility]. Date of initial image: August 21, 2024 Patient risk level: High Size of nodule of greatest concern: Enter number in MM only: 3mm Nodule border: Regular/smooth Location of largest nodule: Left Upper Lobe Next CT is recommended in 12 months. Results letter sent to patient. /es/ SHANTHI BUSTILLO RN PULMONARY SPEECH ASSISTANT Signed: 08/22/2024 08:50 SHANTHI BUSTILLO [facility]
--- OUTSIDE RECORDS SUMMARY | 2024-09-29 08:48 | XMS_ITS | Encounter Summary ---
Author Name [facility] of [facility] ([place]) Organization 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 Date/Time Encounter Type Encounter Description Reason Provider Source Sep 29, 2024 01:48 PM Outpatient Encounter DERMATOLOGY ICD-10-CM D17.1 Benign lipomatous neoplasm of skin, subcu of trunk SONAM OLIVER Encounter Template Text not used by [place] Assessments - Encounter Diagnoses This section includes the primary and secondary diagnoses documented for the Encounter. Date/Time Primary/Secondary Diagnosis Diagnosis Name Provider Source Sep 29, 2024 02:12 PM PRIMARY Benign lipomatous neoplasm of skin, subcu of trunk SONAM OLIVER [facility] Plan of Treatment: Future Appointments (+ 6 months) and Future Tests (+/- 45 days) The Plan of Treatment section includes future care activities for the patient from all [place] treatmentfacilities. This section includes future appointments and future orders which are active, pending or scheduled. Future Appointments This section includes appointments that were scheduled to occur 6 months from the date of the Encounter, up to a maximum of 20 appointments. The data comes from all [place] treatment facilities. Appointment Date/Time Appointment Type Appointme nt Facility Name Oct 05, 2024 07:00 AM [facility] Oct 05, 2024 08:00 AM AMBULATORY - MEDICINE [facility] Oct 24, 2024 07:45 AM [facility] N[facility] Nov 10, 2024 09:00 AM [facility] Nov 17, 2024 11:00 AM [facility] Dec 11, 2024 08:30 AM AMBULATORY - REHAB MEDICIN E [facility] January 16, 2025 08:20 AM AMBULATORY - SURGERY [facility] January 16, 2025 08:40 AM AMBULATORY - SURGERY [facility] January 17, 2025 08:00 AM AMBULATORY - REHAB MEDICIN E [facility] Feb 13, 2025 02:00 PM AMBULATORY - PS[facility]CHIATRY [facility] Lab Results: +/- 30 days [...] Unit Interpretation Reference Range Specimen Type Comment Oct 24, 2024 08:29 AM [facility] CBC BLOOD Specimen Type: BLOOD No comment entered. Ordering Provider: YULI PAUL Report Released Date/Time: Oct 10, 2024 02:35 PM Reporting Lab: [facility] [phone] Performing Lab: [facility] [phone] WBC 6.3 4.0-11.0 RBC 4.26 L 4.60-6.20 HGB 12.8 g/dL L 13.5-17.9 HCT 41.1 41.0-54.0 MCV 96.5 fL 80.0-100.0 MCH 30.0 pg 27.0-33.0 MCHC 31.1 g/dL L 32.0-37.5 PLT 179 150-400 MPV 9.5 fL 9.1-13.0 RDW 16.9 H 11.5-14.5 Oct 24, 2024 08:29 AM [facility] ELP/IMMFIX,SERUM PANEL SERUM Speci men Type: SERUM No comment entered. Ordering Provider: YOSSI PAUL Report Released Date/Time: Oct 10, 2024 02:35 PM Reporting Lab: [facility] [phone] Performing Lab: [facility] [phone] PROTEIN,TOTAL 7.9 g/dL 6.4-8.3 .ALBUMIN FRACTION 4.36 g/dL 3.66-4.78 .ALPHA 1 FRACTION 0.32 g/dL 0.14-0.38 .ALPHA 2 FRACTION 0.75 g/dL 0.50-0.90 .BETA 1 FRACTION 0.51 g/dL 0.33-0.55 .BETA 2 FRACTION 0.48 g/dL 0.20-0.52 .GAMMA FRACTION 1.48 g/dL 0.58-1.72 .TOTAL PROTEIN 7.9 g/dL 6.0-8.3 .INTERPRETATION NO MONOCLONALS DETECTED Oct 05, 2024 06:36 AM [facility] TSH W/REFLEX TO FREE T4 PLASMA Spec imen Type: PLASMA No comment entered. Ordering Provider: YOSSI PAUL Report Released Date/Time: Apr 06, 2024 09:08 AM Reporting Lab: [facility] [phone] Performing Lab: [facility] [phone] TSH 1.62 u[IU]/mL 0.35-4.94 Oct 05, 2024 06:36 AM [facility] BNP PLASMA Specimen Type : PLASMA No comment entered. Ordering Provider: YOSSI PAUL Report Released Date/Time: Apr 06, 2024 09:08 AM Reporting Lab: [facility] [phone] Performing Lab: [facility] [phone] BNP 183 pg/mL H <99 Oct 05, 2024 06:36 AM [facility] LIPID PANEL,NON-FASTING PLASMA Specimen Type: PLASMA No comment entered. Ordering Provider: YOSSI PAUL Report Released Date/Time: Apr 06, 2024 09:08 AM Reporting Lab: [facility] [phone] Performing Lab: [facility] [address] CHOLESTEROL 134 mg/dL <199 .HDL 69 mg/dL >40 LDL CALCULATION 53 mg/dL <99 VLDL CALCULATION 12 mg/dL <29 NON HDL CHOLESTEROL 65 mg/dL <129 TRIG(NON FASTING) 62 mg/dL <149 Oct 05, 2024 06:36 AM [facility] CBC BLOOD Specimen Type: BLOOD No comment entered. Ordering Provider: YOSSI PAUL Report Released Date/Time: Apr 06, 2024 09:08 AM Reporting Lab: [facility] [phone] Performing Lab: [facility] [address] WBC 4.5 4.0-11.0 RBC 4.10 L 4.60-6.20 HGB 11.9 g/dL L 13.5-17.9 HCT 38.3 L 41.0-54.0 MCV 93.4 fL 80.0-100.0 MCH 29.0 pg 27.0-33.0 MCHC 31.1 g/dL L 32.0-37.5 PLT 120 L 150-400 MPV 9.7 fL 9.1-13.0 RDW 17.3 H 11.5-14.5 Oct 05, 2024 06:36 AM [facility] COMPREHENSIVE METABOLIC PANEL+MG PLASMA Specimen Type: PLASMA No comment entered. Ordering Provider: YOSSI PAUL Report Released Date/Time: Apr 06, 2024 09:08 AM Reporting Lab: [facility] [phone] Performing Lab: [facility] [phone] CREATININE 1.5 mg/dL H 0.7-1.2 UREA NITROGEN 36 mg/dL H 8-26 GLUCOSE 99 mg/dL 70-100 SODIUM 138 mmol/L 136-145 POTASSIUM 4.5 mmol/L 3.5-5.1 CHLORIDE 102 mmol/L 98-107 CO2 27 mmol/L 22-29 CALCIUM 9.3 mg/dL 8.4-10.2 PROTEIN,TOTAL 7.4 g/dL 6.4-8.3 ALBUMIN 3.9 g/dL 3.5-5.0 BILIRUBIN, TOTAL 0.8 mg/dL 0.2-1.2 MAGNESIUM 2.0 mg/dL 1.6-2.6 ANION GAP 9 mmol/L 5-15 ALKALINE PHOSPHATASE 62 U/L 40-150 ALT/SGPT 7 U/L <44 AST/SGOT 20 U/L 11-34 .CREAT EGFR(CKD-EPI) 47 L >60 Oct 05, 2024 06:36 AM [facility] FOLATE PLASMA Specimen Type : PLASMA No comment entered. Ordering Provider: YOSSI PAUL Report Released Date/Time: Oct 05, 2024 08:40 AM Reporting Lab: [facility] [phone] Performing Lab: [facility] [address] FOLATE 7.7 ng/mL >7.0 Oct 05, 2024 06:36 AM [facility] B 12 SERUM Specimen Type : SERUM Comment: Specimen received is PLASMA. Ordering Provider: YOSSI PAUL Report Released Date/Time: Oct 05, 2024 08:40 AM Reporting Lab: [facility] [phone] Performing Lab: [facility] [address] B 12 648 pg/mL 213-816 Oct 05, 2024 06:36 AM [facility] FERRITIN PLASMA Specimen Type : PLASMA No comment entered. Ordering Provider: YOSSI PAUL Report Released Date/Time: Oct 05, 2024 08:40 AM Reporting Lab: [facility] [phone] Performing Lab: [facility] [address] FERRITIN 600.3 ng/mL H 21.8-274.7 Oct 05, 2024 06:36 AM [facility] IRON GROUP SERUM Specimen Type : SERUM Comment: Specimen received is PLASMA. Ordering Provider: YOSSI PAUL Report Released Date/Time: Oct 05, 2024 08:40 AM Reporting Lab: [facility] [phone] Performing Lab: [facility] [phone] IRON 88 ug/dL 65-175 TIBC,CALCULATED 289 ug/dL 250-425 FERRITIN 600.3 ng/mL H 21.8-274.7 IRON SATURATION 30 20-50 TRANSFERRIN 231 mg/dL 163-382 Oct 05, 2024 06:36 AM [facility] PERIPHERAL SMEAR PATHOLOGIST REVIEW BLOOD Specimen Type: BLOOD No comment entered. Ordering Provider: YOSSI PAUL Report Released Date/Time: Oct 05, 2024 08:40 AM Reporting Lab: [facility] [phone] Performing Lab: [facility] [phone] PERIPHERAL SMEAR PATHOLOGIST REVIEW SLIDES MADE Social History: Smoking Status (Most current) and [...] [facility] Dec 20, 2018 10:09 AM IN-TOBACCO QUIT 15 YRS OR MORE [facility] [...] this document. The data comes from all [facility]. Date Advance Directives Provider Source Dec 04, 2009 CLINICAL WARNING KAMARI CUMMINGS [facility] Radiology Reports: +/- 30 days of [...] treatment facilities. Date/Time Radiology Report Provider Source Oct 24, 2024 07:[address] (AP) ABDOMEN/PE LVIS (P): ROSS IGLESIAS [id number] -1945 M Exm Date: OCT 24, 2024@07:17 Req Phys: YOSSI PAUL Pat Loc: [facility] PACT FLAME 4D (Req'g Loc) Img Loc: CT IMAGING Service: [place] [address] (Case [id number] COMPLETE) CT (AP) ABDOMEN/PELVIS W/O CONTRA(CT Detailed) CPT:86371 Reason for Study: multiple subcutaneous nodules in suprapubic area Clinical History: with multiple subcutaneous nodules in suprapubic and inguinal area, maintains they are fluctuant in size. Appear to be lipomas, but in light of reported fluctuation in size - please evaluate for pelvic lymphadenopathy or other. Thanks LAST 3: Collection DT Specimen Test Name Result Units Ref Range 10/05/2024 06:36 PLASMA CREATININE 1.5 H mg/dL 0.7 - 1.2 07/20/2024 14:05 PLASMA CREATININE 1.3 H mg/dL 0.7 - 1.2 05/31/2024 09:39 PLASMA CREATININE 1.6 H mg/dL 0.7 - 1.2 10/05/2024 06:36 PLASMA .CREAT EGFR(CKD-E 47 L Ref: >=60 07/20/2024 14:05 PLASMA .CREAT EGFR(CKD-E 56 L Ref: >=60 05/31/2024 09:39 PLASMA .CREAT EGFR(CKD-E 44 L Ref: >=60 Allergies: ([place] only) PENICILLIN (May 15, 1994) SIMVASTATIN (Apr 01, 2006) LOBSTER (Jul 12, 2007) SCALLOPS (Jul 12, 2007) LISINOPRIL (Apr 03, 2008) METOPROLOL (Apr 03, 2008) FISH (Dec 04, 2009) CONTRAST MEDIA (Jul 06, 2022) ZOLPIDEM (Dec 20, 2023) TOPIRAMATE (January 03, 2024) Defer to radiologist for final CT protocol. User Placing Order: YOSSI PAUL - Office My pager number on record is: [phone]. The pager number/cell phone number above is NOT correct and I have entered my correct number below: My correct contact # is:[phone] - TEAMS Trainees only: Enter your staff provider's info here: Per Joint Commission Standards, by signing this diagnostic imaging request the ordering provider confirms they have considered patients age and recent imaging history. Report Status: Verified Date Reported: OCT 24, 2024 Date Verified: OCT 24, 2024 Supervisor Sample Preparation E-Sig:/ES/KAREN HANEY DO Report: CT abdomen and pelvis without contrast History: Subcutaneous nodules in the suprapubic area Comparison: CT chest 08/21/2024, 06/22/2023 09/07/2019. Technique: CT of the abdomen and pelvis without contrast. Multiplanar reconstructions were obtained and reviewed. Dose: Total DLP: 376 mGy*cm Findings: Lung bases: Emphysema. Subpleural reticulation and groundglass opacities again noted. Heart size is borderline to mildly enlarged. There is atherosclerotic calcification. Liver: A couple of small low-density liver lesions are stable. Small cyst in the left lobe. Gallbladder and bile ducts: Normal. Pancreas: Fatty atrophy. No mass or ductal dilatation. Spleen: Small calcified granuloma noted. Adrenal glands: Stable small fat-containing adenoma in the right kidney measuring 1 cm. Kidneys and ureters: Bilateral renal cysts. No hydronephrosis. 5 mm hypodensity lesion in the upper left kidney is too small to characterize (image 104). There is a degree of bilateral renal cortical thinning/scarring. Lymph nodes: Prominent gastrohepatic lymph node is stable to 2019. 1.7 x 1.3 cm preaortic lymph node is stable to 2022. There are a couple of additional prominent retroperitoneal lymph nodes. No other lymphadenopathy. Major vasculature: Distal abdominal aorta is aneurysmal measuring 3.3 cm. Right common iliac artery is ectatic measuring up to 1.7 cm. Atherosclerotic calcification noted. GI tract: Small hiatal hernia. Small bowel appears grossly normal. There is colonic diverticulosis. Peritoneal cavity: No ascites or free intraperitoneal gas. Pelvic organs: Mild to moderate prostatomegaly There is mild thickening of the posterior superior bladder wall measuring up to 8 mm. This could in part be secondary to underdistention. Bones: Scattered osseous degenerative changes including the spine. Mild anterior wedge deformity of T11. Soft tissues: Small fat-containing left inguinal hernia. There are numerous bilateral dilated venous collaterals in the subcutaneous fat of the anterior pelvic wall and inguinal regions. Impression: 1. Numerous bilateral dilated venous collaterals in the subcutaneous fat of the anterior pelvic wall and inguinal regions. This may account for the palpable abnormality. No pelvic lymphadenopathy. 2. Mild thickening of the posterior superior bladder wall. This could in part be secondary to underdistention. 3. Distal abdominal aortic aneurysm. This can be followed with ultrasound. 4. Additional chronic and incidental findings as above including colonic diverticulosis and prostatomegaly. Report Sign Date/Time: 10/24/2024 9:02 AM Primary Interpreting Staff: KAREN HANEY DO, RADIOLOGIST (Supervisor Sample Preparation) /DDS KAREN HANEY [facility] Pathology Reports: +/- 30 days [...] comes from all [place] treatment facilities. Date/Time Pathology Report Provider Source Oct 10, 2024 10:53 AM LR SURGICAL PATHOL OGY REPORT: LOCAL TITLE: LR SURGICAL PATHOLOGY REPORT STANDARD TITLE: PATHOLOGY REPORT DATE OF NOTE: OCT 10, 2024@10:53:18 ENTRY DATE: OCT 10, 2024@10:53:18 AUTHOR: LEE KAY COSIGNER: URGENCY: STATUS: COMPLETED $APHDR Reporting Lab: [facility] [CLIA# [id number]] [address] [place] [address] - - - - - - - - - - - - - - - - - - - - - - - - - - - - - - - - - - - - - - - - MEDICAL RECORD PERIPHERAL SMEAR - - - - - - - - - - - - - - - - - - - - - - - - - - - - - - - - - - - - - - - - PATHOLOGY REPORT Accession No. PS-MN [id number] - - - - - - - - - - - - - - - - - - - - - - - - - - - - - - - - - - - - - - - - $TEXT Submitted by: Date obtained: Oct 05, 2024 - - - - - - - - - - - - - - - - - - - - - - - - - - - - - - - - - - - - - - - - Specimen (Received Oct 05, 2024 14:21): PERIPHERAL SMEAR - - - - - - - - - - - - - - - - - - - - - - - - - - - - - - - - - - - - - - - - BRIEF CLINICAL HISTORY: - - - - - - - - - - - - - - - - - - - - - - - - - - - - - - - - - - - - - - - - PREOPERATIVE DIAGNOSIS: - - - - - - - - - - - - - - - - - - - - - - - - - - - - - - - - - - - - - - - - OPERATIVE FINDINGS: - - - - - - - - - - - - - - - - - - - - - - - - - - - - - - - - - - - - - - - - POSTOPERATIVE DIAGNOSIS: Surgeon/physician: YOSSI PAUL WASHER ENGINEER HELPER =-=-=-=-=-=-=-=-=-=-=-=-=-=-=-= -=-=-=-=-=-=-=-=-=-=-=-=-=-=-=- =-=-=-=-=-=-=-=-= - - - - - - - - - - - - - - - - - - - - - - - - - - - - - - - - - - - - - - - - PATHOLOGY REPORT Accession No. PS-MN [id number] - - - - - - - - - - - - - - - - - - - - - - - - - - - - - - - - - - - - - - - - Specimen: Abnormal CBC parameters include, hemoglobin 11.9 g/dL; platelets 130 K/uL. The red blood cells are normochromic. Occasional elliptocytes, ellipto-ovalocytes, and ovalocytes are seen. Rouleaux formation is increased. White blood cell and platelet morphology is essentially unremarkable. Diagnosis: - Slight normochromic, normocytic anemia and slight thrombocytopenia in patient with multiple comorbidities - Increased rouleaux formation; please correlate with serum ELP study - No morphologic evidence of hemolysis or dysplasia /johana/ LEE KAY MD STAFF PATHOLOGIST, PATHOLOGY & LABORATORY [facility] Signed Oct 10, 2024@10:53 Performing Laboratory: Surgical Pathology Report Performed By: [facility] [CLIA# [id number]] [place] [address] $FTR - - - - - - - - - - - - - - - - - - - - - - - - - - - - - - - - - - - - - - - - (End of report) LEE KAY [place] [facility] [place] Oct 10, 2024 - - - - - - - - - - - - - - - - - - - - - - - - - - - - - - - - - - - - - - - - ROSS IGLESIAS STANDARD FORM 515 ID:[id number] SEX:M :1945 AGE: 78 LOC:[id number] PCP: Yossi Paul NP /johana/ LEE KAY MD STAFF PATHOLOGIST, PATHOLOGY & LABORATORY [facility] Signed: 10/10/2024 10:53 LEE KAY [facility] Encounter Notes: All associated encounter notes This section contains the clinical notes associated to the Encounter. Date/Time Encounter Note(s) Provider Source Sep 29, 2024 01:48 PM TELEIMAGING REPORT : LOCAL TITLE: TELEDERMATOLOGY IMAGING REPORT CONSULT STANDARD TITLE: TELEIMAGING REPORT DATE OF NOTE: SEP 29, 2024@13:48 ENTRY DATE: SEP 29, 2024@13:48:15 AUTHOR: SONAM OLIVER COSIGNER: URGENCY: STATUS: COMPLETED HISTORY: HISTORY: Prior skin history: Yes BCC x4 Have you had a skin cancer before? Basal Cell Carcinoma (BCC) Patient reports no family history of melanoma. Taking new med/supplements: None reported Immunosuppression history: None reported Other significant history: None reported Chief Complaint: multiple subcutaneous nodules in suprapubic area. Mostlikely lipomas PROBLEM A LOCATION(S): Trunk: suprapubic area DURATION: 6 months ago SYMPTOMS: No Symptoms CHANGES: Size: they will sometimes vary in their size TREATMENT: No BIOPSY: No OVERALL CONSULT/IMAGE QUALITY: Fully satisfactory EXAM: Only normal skin and hair is visible IMPRESSION BASED ON IMAGES AND INFORMATION REVIEWED: PROBLEM A: Unable to assess using Teledermatology Imaging RECOMMENDATIONS FOR REFERRING PROVIDER: PROBLEM A: Other recommendations: In order to assess any potential subcutaneous lesions, would recommend ultrasound imaging TIME-SENSITIVITY: No time-sensitive, urgent, emergent or life-threatening results. RECOMMENDED FOLLOW-UP (Include Clinically Indicated Date (GARRETT)): Primary Care follow up Nature/Type of Follow-up: Order ultrasound imaging for further characterization GARRETT: Nov Cumulative time of review and management: 5 minutes or more The information below was automatically mailed to the [place] via our automated results reporting system. # # # # # # # # # # # # # # # # # # # # # # # # # # # # # # # # # # # # Your skin photos have been reviewed by our dermatology department. Here are our findings and recommendations: Diagnosis: Normal skin Treatment: None needed Follow up: In order to better assess any lesions that may be present underneath the skin, I have recommended that your primary care doctor place an order for an ultrasound to image these lesions. /es/ SONAM OLIVER MD CHIEF DERMATOLOGY Signed: 09/29/2024 14:12 SONAM OLIVER [facility]
--- OUTSIDE RECORDS SUMMARY | 2024-10-05 03:00 | XMS_ITS | Encounter Summary ---
Author Name [facility] ([place]) Organization [facility] ([place]) Address [address] [place] [address] Care Team Providers Care Tight Rope Walker Name Role Phone EDUARDO PRATT Primary Care [...] PART A Sep 30, 2010 PART A [id number] Isaac IGLESIAS PATIENT MEDICARE (WNR) MEDICARE (M) PART A Sep 30, 2010 PART A [id number] [phone] Isaac IGLESIAS PATIENT Selected Encounter This section includes the information on record at OR for the Encounter. Date/Time Encounter Type Encounter Description Reason Provider Source Oct 05, 2024 08:00 AM OFFICE O/P EST MOD 30 MIN PRIMARY CARE/MEDICINE ICD-10-CM F33.8 Other recurrent depressive disorders TONEY PRATT [facility] Encounter Template Text not used by OR Assessments - Encounter Diagnoses This section includes the primary and secondary diagnoses documented for the Encounter. Date/Time Primary/Secondary Diagnosis Diagnosis Name Provider Source Oct 06, 2024 06:24 AM PRIMARY Other recurrent depressive disorders [facility] Oct 06, 2024 06:24 AM SECONDARY Benign prostatic hyperplasia with lower urinary tract symp [facility] Oct 06, 2024 06:24 AM SECONDARY Chronic obstructive pulmonary disease, unspecified [facility] Oct 06, 2024 06:24 AM SECONDARY Encounter for immunization [facility]CH [facility] Oct 06, 2024 06:24 AM SECONDARY Essential (primary) [facility] Oct 06, 2024 06:24 AM SECONDARY Hyperlipidemia, unspecified [facility] Oct 06, 2024 06:24 AM SECONDARY care [facility] (current[facility] Oct 06, 2024 06:24 AM SECONDARY Other obstructive and reflux uropathy [facility] Oct 06, 2024 06:24 AM SECONDARY Parkinsonism, unspecified [facility] Oct 06, 2024 06:24 AM SECONDARY Personal history of nicotine dependence [facility] Oct 06, 2024 06:24 AM SECONDARY Polyneuropathy, unspecified [facility] Oct 06, 2024 06:24 AM SECONDARY Post-traumatic stress disorder, chronic [facility] Plan of Treatment: Future Appointments (+ 6 months) and Future Tests (+/- 45 days) The Plan of Treatment section includes future care activities for the patient from all [facility]. This section includes future appointments and future orders which are active, pending or scheduled. Future Appointments This section includes appointments that were scheduled to occur 6 months from the date of the Encounter, up to a maximum of 20 appointments. The data comes from all [facility]. Appointment Date/Time Appointment Type Appointme nt Facility Name Oct 24, 2024 07:45 AM AMBUL[place]ORY - NONE [place] [facility] Nov 10, 2024 09:00 AM AMBULATORY - NONE [place] [facility] Nov 17, 2024 11:00 AM AMBULATORY - NONE [place] [facility] Dec 11, 2024 08:30 AM AMBULATORY - REHAB MEDICIN E [facility] January 16, 2025 08:20 AM AMBULATORY - SURGERY [facility] January 16, 2025 08:40 AM AMBULATORY - SURGERY [facility] January 17, 2025 08:00 AM AMBULATORY - REHAB MEDICIN E [facility] Feb 13, 2025 02:00 PM AMBULATORY - PS[place]CHIATRY [place] [facility] Lab Results: +/- 30 days of [...] Type Comment Oct 24, 2024 08:29 AM [facility] CBC BLOOD Specimen Type: BLOOD No comment entered. Ordering Provider: YULI PRATT Report Released Date/Time: Oct 10, 2024 02:35 PM Reporting Lab: [facility] [id number] Performing Lab: [facility] [phone] WBC 6.3 4.0-11.0 RBC 4.26 L 4.60-6.20 HGB 12.8 g/dL L 13.5-17.9 HCT 41.1 41.0-54.0 MCV 96.5 fL 80.0-100.0 MCH 30.0 pg 27.0-33.0 MCHC 31.1 g/dL L 32.0-37.5 PLT 179 150-400 MPV 9.5 fL 9.1-13.0 RDW 16.9 H 11.5-14.5 Oct 24, 2024 08:29 AM [facility] ELP/IMMFIX,SERUM PANEL SERUM Speci men Type: SERUM No comment entered. Ordering Provider: EDUARDO PRATT Report Released Date/Time: Oct 10, 2024 02:35 PM Reporting Lab: [facility] [id number] Performing Lab: [facility] [address] PROTEIN,TOTAL 7.9 g/dL 6.4-8.3 .ALBUMIN FRACTION 4.36 g/dL 3.66-4.78 .ALPHA 1 FRACTION 0.32 g/dL 0.14-0.38 .ALPHA 2 FRACTION 0.75 g/dL 0.50-0.90 .BETA 1 FRACTION 0.51 g/dL 0.33-0.55 .BETA 2 FRACTION 0.48 g/dL 0.20-0.52 .GAMMA FRACTION 1.48 g/dL 0.58-1.72 .TOTAL PROTEIN 7.9 g/dL 6.0-8.3 .INTERPRETATION NO MONOCLONALS DETECTED Oct 05, 2024 06:36 AM [facility] TSH W/REFLEX TO FREE T4 PLASMA Spec imen Type: PLASMA No comment entered. Ordering Provider: EDUARDO PRATT Report Released Date/Time: Apr 06, 2024 09:08 AM Reporting Lab: [facility] [phone] Performing Lab: [facility] [address] TSH 1.62 u[IU]/mL 0.35-4.94 Oct 05, 2024 06:36 AM [facility] BNP PLASMA Specimen Type : PLASMA No comment entered. Ordering Provider: EDUARDO PRATT Report Released Date/Time: Apr 06, 2024 09:08 AM Reporting Lab: [facility] [phone] Performing Lab: [facility] [address] BNP 183 pg/mL H <99 Oct 05, 2024 06:36 AM [facility] LIPID PANEL,NON-FASTING PLASMA Specimen Type: PLASMA No comment entered. Ordering Provider: EDUARDO PRATT Report Released Date/Time: Apr 06, 2024 09:08 AM Reporting Lab: [facility] [phone] Performing Lab: [facility] [address] CHOLESTEROL 134 mg/dL <199 .HDL 69 mg/dL >40 LDL CALCULATION 53 mg/dL <99 VLDL CALCULATION 12 mg/dL <29 NON HDL CHOLESTEROL 65 mg/dL <129 TRIG(NON FASTING) 62 mg/dL <149 Oct 05, 2024 06:36 AM [facility] CBC BLOOD Specimen Type: BLOOD No comment entered. Ordering Provider: EDUARDO PRATT Report Released Date/Time: Apr 06, 2024 09:08 AM Reporting Lab: [facility] [phone] Performing Lab: [facility] [address] WBC 4.5 4.0-11.0 RBC 4.10 L 4.60-6.20 HGB 11.9 g/dL L 13.5-17.9 HCT 38.3 L 41.0-54.0 MCV 93.4 fL 80.0-100.0 MCH 29.0 pg 27.0-33.0 MCHC 31.1 g/dL L 32.0-37.5 PLT 120 L 150-400 MPV 9.7 fL 9.1-13.0 RDW 17.3 H 11.5-14.5 Oct 05, 2024 06:36 AM [facility] COMPREHENSIVE METABOLIC PANEL+MG PLASMA Specimen Type: PLASMA No comment entered. Ordering Provider: EDUARDO PRATT Report Released Date/Time: Apr 06, 2024 09:08 AM Reporting Lab: [facility] [phone] Performing Lab: [facility] [address] CREATININE 1.5 mg/dL H 0.7-1.2 UREA NITROGEN [...] L >60 Oct 05, 2024 06:36 AM [facility] FOLATE PLASMA Specimen Type : PLASMA No comment entered. Ordering Provider: EDUARDO PRATT Report Released Date/Time: Oct 05, 2024 08:40 AM Reporting Lab: [facility] [phone] Performing Lab: [facility] [address] FOLATE 7.7 ng/mL >7.0 Oct 05, 2024 06:36 AM [facility] B 12 SERUM Specimen Type : SERUM Comment: Specimen received is PLASMA. Ordering Provider: EDUARDO PRATT Report Released Date/Time: Oct 05, 2024 08:40 AM Reporting Lab: [facility] [phone] Performing Lab: [facility] [address] B 12 648 pg/mL 213-816 Oct 05, 2024 06:36 AM [facility] FERRITIN PLASMA Specimen Type : PLASMA No comment entered. Ordering Provider: EDUARDO PRATT Report Released Date/Time: Oct 05, 2024 08:40 AM Reporting Lab: [facility] [phone] Performing Lab: [facility] [address] FERRITIN 600.3 ng/mL H 21.8-274.7 Oct 05, 2024 06:36 AM [facility] IRON GROUP SERUM Specimen Type : SERUM Comment: Specimen received is PLASMA. Ordering Provider: EDUARDO PRATT Report Released Date/Time: Oct 05, 2024 08:40 AM Reporting Lab: [facility] [phone] Performing Lab: [facility] [phone] IRON 88 ug/dL 65-175 TIBC,CALCULATED 289 ug/dL 250-425 FERRITIN 600.3 ng/mL H 21.8-274.7 IRON SATURATION 30 20-50 TRANSFERRIN 231 mg/dL 163-382 Oct 05, 2024 06:36 AM [facility] PERIPHERAL SMEAR PATHOLOGIST REVIEW BLOOD Specimen Type: BLOOD No comment entered. Ordering Provider: EDUARDO PRATT Report Released Date/Time: Oct 05, 2024 08:40 AM Reporting Lab: [facility] [phone] Performing Lab: [facility] [phone] PERIPHERAL SMEAR PATHOLOGIST REVIEW SLIDES MADE Vital Signs: All taken on the encounter date This section contains inpatient and outpatient Vital Signs collected on the date of the Encounter. Date/Time Temperature Pulse Blood Pressure Respiratory Rate SP02 Pain Height Weight Body Mass Index Source Oct 05, 2024 07:41 AM 98.2 84 127/78 17 93 7 65 167.8 28 [facility] Immunizations: All administered on the encounter date This section contains immunizations associated to the Encounter. Immunization Series Date Issued Administered By Site Reaction Lot Number CVX Code Drug Ged Instructor Comment(s) Source RSV, BIVALENT, PROTEIN SUBUNIT RSVPREF, DILUENT RECONSTITUTED , 0.5 ML, PF Oct 05, 2024 [place] [id number] [employer] ADMINISTERE D AT OR, [facility] Social History: Smoking Status (Most current) [...] Current Smoking Status Comment Anuja alexis Oct 05, 2024 08:00 AM VA-TOBACCO USE FORMER CIGARETTES [facility] Tobacco Use History This section includes a history of the smoking, or tobacco-related health factors, that were collected on or before the date of the Encounter. The data comes from the [place] facility where the Encounter took place. Date/Time Smoking Status/Tobacco Use Comment F acility Oct 05, 2024 08:00 AM VA-TOBACCO USE FORMER CIGARETTES [facility] Oct 11, 2023 08:00 AM VA-TOBACCO FORMER USER [facility] Oct 11, 2023 08:00 AM VA-TOBACCO QUIT 15 YRS OR MORE [facility] Aug 17, 2022 09:15 AM VA-TOBACCO FORMER USER [facility] Aug 17, 2022 09:15 AM VA-TOBACCO QUIT 15 YRS OR MORE [facility] Oct 27, 2021 09:00 AM VA-TOBACCO FORMER USER [facility] Oct 27, 2021 09:00 AM VA-TOBACCO QUIT 15 YRS OR MORE [facility] Sep 19, 2020 09:00 AM VA-TOBACCO FORMER USER [facility] Sep 19, 2020 09:00 AM VA-TOBACCO QUIT 15 YRS OR MORE [facility] Dec 20, 2018 10:09 AM VA-TOBACCO FORMER USER [facility] Dec 20, 2018 10:09 AM VA-TOBACCO QUIT 15 YRS OR MORE [facility] Dec 07, 2017 09:12 AM FORMER TOBACCO USER 7Y OR GREATE R [facility] Apr 21, 2017 08:35 AM FORMER TOBACCO USER 7Y OR GREATE R [facility] Apr 28, 2016 08:20 AM FORMER TOBACCO USER 7Y OR GREATE R [facility] January 22, 2015 10:07 AM FORMER TOBACCO USER 7Y OR GREATE R [facility] January 25, 2014 10:11 AM FORMER TOBACCO USER 7Y OR GREATE R [facility] December 30, 2011 08:00 AM FORMER TOBACCO USER 7Y OR GREATE R [facility] January 21, 2011 01:16 PM FORMER TOBACCO USE >1Y <7Y [facility] Nov 27, 2009 08:09 AM FORMER TOBACCO USE >1Y <7Y [facility] Dec 27, 2008 12:32 AM FORMER TOBACCO USE >1Y <7Y [facility] January 03, 2008 12:52 PM FORMER TOBACCO USE >1Y <7Y [facility] January 11, 2007 10:43 AM FORMER TOBACCO USE >1Y <7Y [facility] Advance Directives: All historical and current Section Date Range: From patient's date of to the date document was created. This section includes ALL of a patient's completed or amended OR Advance and Rescinded Directives. The entries below indicate that a directive exists for the patient, but an actual copy is not included with this document. The data comes from all [facility]. Date Advance Directives Provider Source Dec 04, 2009 CLINICAL WARNING KAMARI [facility] Radiology Reports: +/- 30 days of [...] the Encounter. The data comes from all OR treatment facilities. Date/Time Radiology Report Provider Source Oct 24, 2024 07:[address] (AP) ABDOMEN/PE LVIS (P): ROSS IGLESIAS [id number] -1945 M Exm Date: OCT 24, 2024@07:17 Req Phys: EDUARDO PRATT Pat Loc: [facility] PACT FLAME 4D (Req'g Loc) Img Loc: CT IMAGING Service: [place] [address] (Case [id number] COMPLETE) CT (AP) ABDOMEN/PELVIS W/O CONTRA(CT Detailed) CPT:72641 Reason for Study: multiple subcutaneous nodules in suprapubic area Clinical History: [place] with multiple subcutaneous nodules in suprapubic and [...] .CREAT EGFR(CKD-E 44 L Ref: >=60 Allergies: ([place] only) PENICILLIN (May 15, 1994) SIMVASTATIN (Apr 01, 2006) LOBSTER (Jul 12, 2007) SCALLOPS (Jul 12, 2007) LISINOPRIL (Apr 03, 2008) METOPROLOL (Apr 03, 2008) FISH (Dec 04, 2009) CONTRAST MEDIA (Jul 06, 2022) ZOLPIDEM (Dec 20, 2023) TOPIRAMATE (January 03, 2024) Defer to radiologist for final CT protocol. User Placing Order: EDUARDO PRATT - Office My pager number on record is: [phone]. The pager number/cell phone number above is NOT correct and I have entered my correct number below: My correct contact # is:[phone] - TEAMS Trainees only: Enter your staff provider's info here: Per Joint Commission Standards, by signing this diagnostic imaging request the ordering provider confirms they have considered patients age and recent imaging history. Report Status: Verified Date Reported: OCT 24, 2024 Date Verified: OCT 24, 2024 Credentialing Manager E-Sig:/ES/KAREN HANEY DO Report: CT abdomen and [...] Primary Interpreting Staff: KAREN HANEY DO, RADIOLOGIST (Credentialing Manager) /DDS KAREN HANEY [facility] Pathology Reports: +/- 30 days of [...] the Encounter. The data comes from all OR treatment facilities. Date/Time Pathology Report Provider Source Oct 10, 2024 10:53 AM LR SURGICAL PATHOL OGY REPORT: LOCAL TITLE: LR SURGICAL PATHOLOGY REPORT STANDARD TITLE: PATHOLOGY REPORT DATE OF NOTE: OCT 10, 2024@10:53:18 ENTRY DATE: OCT 10, 2024@10:53:18 AUTHOR: LEE KAY COSIGNER: URGENCY: STATUS: COMPLETED $APHDR Reporting Lab: [facility] [CLIA# [id number]] [place] [address] - - - - - - - [...] - - - - POSTOPERATIVE DIAGNOSIS: Surgeon/physician: EDUARDO PRATT [facility] CENTER ASSISTANT =-=-=-=-=-=-=-=-=-=-=-=-=-=-=-= -=-=-=-=-=-=-=-=-=-=-=-=-=-=-=- =-=-=-=-=-=-=-=-= - - - - [...] No morphologic evidence of hemolysis or dysplasia /es/ LEE KAY MD STAFF PATHOLOGIST, PATHOLOGY & LABORATORY MED [facility] Signed Oct 10, 2024@10:53 Performing Laboratory: Surgical Pathology Report Performed By: [facility] [CLIA# [id number]] [place] [address] $FTR - - - - - - - - - - - - - - - - - - - - - - - - - - - - - - - - - - - - - - - - (End of report) LEE KAY MD [facility] Date Oct 10, 2024 - - - - - - - - - - - - - - - - - - - - - - - - - - - - - - - - - - - - - - - - ROSS IGLESIAS STANDARD FORM 515 ID:[id number] SEX:M :1945 AGE: 78 LOC:8525 PCP: Eduardo Pratt, JOSE CARLOS /johana/ LEE KAY MD STAFF PATHOLOGIST, PATHOLOGY & LABORATORY [facility] Signed: 10/10/2024 10:53 LEE KAY [facility] Encounter Notes: All associated encounter notes This section contains the clinical notes associated to the Encounter. Date/Time Encounter Note(s) Provider Source Oct 26, 2024 03:29 PM LETTERS: LOCAL TITLE: FOLLOW UP RESULTS LETTER STANDARD TITLE: LETTERS DATE OF NOTE: OCT 26, 2024@15:29 ENTRY DATE: OCT 26, 2024@15:29:54 AUTHOR: J LUIS PRATT EXP COSIGNER: URGENCY: STATUS: [place] [address] Sep ROSS IGLESIAS [id number] [facility] [address] Dear [place]: I am writing to inform you of the results of testing that you had done recently at the [facility]. Report: CT abdomen and pelvis without contrast [...] cm preaortic lymph node is stable to 202. There are a couple of additional prominent [...] of the anterior pelvic wall and inguinal okay vertigo. regions. This may account for the palpable abnormality. No pelvic lymphadenopathy. 2. Mild thickening of the posterior superior bladder wall. This could in part be secondary to underdistention. 3. Distal abdominal aortic aneurysm. This can be followed with ultrasound. 4. Additional chronic and incidental findings as above including colonic diverticulosis and prostatomegaly. Additional Comments: The radiologist felt the lumps in your lower abdominal wall numerous bilateral dilated venous collaterals in the subcutaneous fat of the anterior pelvic wall (Large veins possibly similar to a varicosity or varicose vein). If you have any further questions or problems, please contact our nursing staff or provider at the following number: [phone]. Sincerely, Toney Pratt APRN, CONFERENCE CENTER COORDINATOR Family Nurse Practitioner ALEN PRATT HER [facility] Oct 11, 2024 04:20 PM ADDENDUM: LOCAL TITLE: Addendum STANDARD TITLE: ADDENDUM DATE OF NOTE: OCT 11, 2024@16:20:01 ENTRY DATE: OCT 11, 2024@16:20:02 AUTHOR: GASTON CALDERÓN EXP COSIGNER: URGENCY: STATUS: COMPLETED Called Mr. Iglesias twice to discuss concerns vis-a-vis increase in headaches (reported to Dr. Pratt) after sertraline increase - Both calls went to [facility], left a message indicating the reason for my call and leaving the clinic number for call back. Will add nurse partner Kristina Raza RN as FYI, in the event Mr. Iglesias should call back while this writer producer is not in clinic. /johana/ GASTON CALDERÓN Staff Physician Signed: 10/11/2024 16:23 Receipt Acknowledged By: 10/12/2024 10:03 /johana/ KRISTINA RAZA REGISTERED NURSE --- Original Document --- 10/06/24 MEDICINE CLINIC NOTE: Subjective: The patient presents with a persistent headache lasting 3-4 months, characterized by constant pain romain to a band encircling the head, behind the eyes, and extending down the neck. The pain intensity is rated at 8/10, escalating to 10/10 with head movement. There are no accompanying symptoms of nausea or vomiting, but the patient's sleep is adversely affected due to pain upon movement. The increase in headache frequency and intensity coincides with an uptick in sertraline dosage from 150mg to 200mg in May. A brain CT scan conducted in June yielded normal results. Additionally, the patient reports discomfort in the colon area, accompanied by fluctuating lumps in the suprapubic region, persisting for several months without any urinary symptoms. The patient has undergone bilateral hernia repair in the past. The patient denies current smoking habits and reports minimal alcohol consumption. Social History: Substance use: Denies smoking, reports minimal alcohol consumption Review of Systems: General: Trouble sleeping Neurological: Persistent headache for 3-4 months, worsening with head movement Gastrointestinal: Discomfort in the colon area Musculoskeletal: Fluctuating lumps in suprapubic and inguinal areas Respiratory: Satisfactory breathing Cardiovascular: No bleeding reported Skin: No bleeding reported Objective: Vital Signs - Blood pressure: 127/80 mmHg - Heart rate: 84 bpm Physical Examination General NAD WDWN Ambulatory Overweight Conversive, pleasant Cardiac: RRR with normal S1 and S2; without murmur, gallop, rub. Chest/Lungs: Bilaterally clear, Clear to auscultation Abdomen: Lumps noted in the inguinal and suprapubic area, nontender Lipomas versus lymphadenopathy, nontender seem mostly soft and somewhat fluctuant. No irregularity with testes and penis. extremities: +1 edema Laboratory Imaging and Diagnostic Test Results Provider: EDUARDO PRATT Specimen: BLOOD. [id number] Specimen Collection Date: Oct 05, 2024@06:36 Test name Result units Ref. range Site Code WBC 4.5 10x3/uL 4.0 - 11.0 [618] RBC 4.10 L 10x6/uL 4.60 - 6.20 [618] HGB 11.9 L g/dL 13.5 - 17.9 [618] HCT 38.3 L % 41.0 - 54.0 [618] MCV 93.4 fL 80.0 - 100.0 [618] MCH 29.0 pg 27.0 - 33.0 [618] MCHC 31.1 L g/dL 32.0 - 37.5 [618] RDW 17.3 H % 11.5 - 14.5 [618] PLT 120 L 10x3/uL 150 - 400 [618] MPV 9.7 fL 9.1 - 13.0 [618] Specimen: PLASMA. [id number] Specimen Collection Date: Oct 05, 2024@06:36 Test name Result units Ref. range Site Code BNP 183 H pg/mL Ref: <=99 [618] Eval: Age related BNP cutoffs: Eval: <55 yrs:<100 pg/mL Eval: 55-64 yrs:<119 pg/mL Eval: 65-74 yrs:<160 pg/mL Eval: >=75 yrs:<254 pg/mL Eval: Eval: New test/ref range 01/17/19 Specimen: PLASMA. [id number] Specimen Collection Date: Oct 05, 2024@06:36 Test name Result units Ref. range Site Code .URBAN EGFR(CKD-EPI) 47 L Ref: >=60 [618] Eval: The eGFR generally decreases with age and in the general population, an Eval: eGFR >60mL/min/1.73 m2 in the absence of increased urine albumin excretion Eval: or structural abnormalities does not represent CKD. Eval: Eval: CKD is diagnosed based on abnormalities of kidney structure or function, Eval: present for >3 months, with implications for health and disease. CKD is Eval: classified and staged based on cause, eGFR, and albuminuria (quantified as Eval: urine albumin to creatinine ratio). Eval: Eval: Below are the eGFR cut off values for CKD stages: Eval: Eval: eGFR (mL/min/1.73 1.73 m2) CKD stage Interpretation Eval: >=90 G1 Normal Eval: 60-89 G2 Mild decrease Eval: 45-59 G3A Mild to moderate decrease Eval: 30-44 G3B Moderate to severe decrease Eval: 15-29 G4 Severe decrease Eval: <15 G5 Kidney failure TSH 1.62 uIU/mL 0.35 - 4.94 [618] SODIUM 138 mmol/L 136 - 145 [618] POTASSIUM 4.5 mmol/L 3.5 - 5.1 [618] Eval: Serum potassium results are generally 5% higher than plasma. CHLORIDE 102 mmol/L 98 - 107 [618] CO2 27 mmol/L 22 - 29 [618] Eval: To calculate Anion Gap use (Na)-[(Cl)+CO2] ANION GAP 9 mmol/L 5 - 15 [618] GLUCOSE 99 mg/dL 70 - 100 [618] Eval: Reference Range is based on fasting specimen. Eval: Patients taking Sulfasalazine may see a negative bias on Glucose Eval: levels. UREA NITROGEN 36 H mg/dL 8 - 26 [618] CREATININE 1.5 H mg/dL 0.7 - 1.2 [618] PROTEIN,TOTAL 7.4 g/dL 6.4 - 8.3 [618] ALBUMIN 3.9 g/dL 3.5 - 5.0 [618] CALCIUM 9.3 mg/dL 8.4 - 10.2 [618] MAGNESIUM 2.0 mg/dL 1.6 - 2.6 [618] BILIRUBIN, TOTAL 0.8 mg/dL 0.2 - 1.2 [618] ALKALINE PHOSPHATASE 62 U/L 40 - 150 [618] AST/SGOT 20 U/L 11 - 34 [618] ALT/SGPT 7 U/L Ref: <=44 [618] Eval: Patients taking Sulfasalazine may see a negative bias on ALT levels CHOLESTEROL 134 mg/dL Ref: <=199 [618] Eval: Guidelines established by National Cholesterol Education Program Eval: Desirable <200 mg/dL Eval: Borderline High 200-239 mg/dL Eval: High >=240 mg/dL TRIG(NON FASTING) 62 mg/dL Ref: <=149 [618] Eval: Guidelines established by National Cholesterol Education Program Eval: Normal <150 mg/dL Eval: Borderline High 150-199 mg/dL Eval: High 200-499 mg/dL Eval: Very High >/=500 mg/dL Eval: REFERENCE RANGE BASED ON FASTING SPECIMEN .HDL 69 mg/dL Ref: >=40 [618] Eval: Guidelines established by National Cholesterol Education Program: Eval: HDL >= 60 mg/dL is considered a negative risk factor for heart disease. LDL CALCULATION 53 mg/dL Ref: <=99 [618] Eval: Based on the National Cholesterol Education Guidelines, Eval: optimal level for LDL is <100 mg/dl. VLDL CALCULATION 12 mg/dL Ref: <=29 [618] Eval: Reference range is dependent on multiple factors. NON HDL CHOLESTEROL 65 mg/dL Ref: <=129 [618] Eval: Desirable level for Non HDL Cholesterol is < 130 mg/dL Eval: Non HDL Cholesterol = total cholesterol minus HDL. Eval: It includes all apo B containing lipoproteins, Eval: including remnants. It is not affected by fasting. Eval: ([facility] [id number]) Specimen: BLOOD. [id number] Specimen Collection Date: Oct 05, 2024@06:36 Test name Result units Ref. range Site Code PS Spec SLIDES MADE [618] Specimen: SERUM. [id number] Specimen Collection Date: Oct 05, 2024@06:36 Test name Result units Ref. range Site Code B 12 648 pg/mL 213 - 816 [618] Eval: The Vitamin B12 assay has poor diagnostic utility in the low normal Eval: range of the assay. Vitamin B12 results less than 300 pg/ml will Eval: automatically be reflexed for the measurement of methylmalonic acid Eval: to aid in the definitive diagnosis of Vitamin B12 deficiency. Eval: Increased concentrations of methylmalonic acid indicate low tissue Eval: stores of Vitamin B12. IRON 88 ug/dL 65 - 175 [618] TRANSFERRIN 231 mg/dL 163 - 382 [618] TIBC,CALCULATED 289 ug/dL 250 - 425 [618] IRON SATURATION 30 % 20 - 50 [618] FERRITIN 607.6 H ng/mL 21.8 - 274.7 [618] Eval: Individual ferritin plasma concentration values may be approximately 10% Eval: higher than serum values. Comment: Specimen received is PLASMA. Specimen: PLASMA. [id number] Specimen Collection Date: Oct 05, 2024@06:36 Test name Result units Ref. range Site Code FOLATE 7.7 ng/mL Ref: >=7.0 [618] Eval: For folate results below the normal range, homocysteine and methylmalonic Eval: acid (MMA) testing is performed in order to confirm folate Eval: deficiency or differentiate folate deficiency from B12 deficiency. Eval: A serum folate less than 7 ng/mL is below our normal range. Eval: However, folate deficiency is typically associated with folate Eval: levels less than 4 ng/mL. Folate deficiency is commonly Eval: associated with elevated homocysteine together with a normal MMA. Eval: B12 deficiency is commonly associated with elevated homocysteine Eval: and elevated MMA FERRITIN 600.3 H ng/mL 21.8 - 274.7 [618] 07/23 CT Head Impression: 1. Frontal lobe volume loss is relatively stable. 2. Arterial calcification. Assessment & Plan: Chronic Headache Patient reports a constant headache for the past 3-4 months, described as a band around the head, behind the eyes, and down the neck. Pain is exacerbated by head movement, rated 8/10 at baseline, increasing to 10/10 with certain head positions. No associated nausea or vomiting, but sleep disturbance is noted. A CT scan of the head in June was normal. The onset of headaches coincides with an increase in sertraline dosage from 150mg to 200mg in May. Given the 25% incidence of headaches as a side effect of sertraline and the temporal relationship with the dose increase, the headaches are likely medication- induced. - Notify Dr. Calderón regarding sertraline-induced headaches - Recommend reduction of sertraline dosage from 200mg to 150mg - Follow up with Dr. Calderón for potential medication adjustment for depression and anxiety management Inguinal lumps -lymphadenopathy versus lipomas Patient reports fluctuating lumps in the suprapubic and inguinal areas, present for several months without associated urinary symptoms. Initially thought to be lipomas by neurologist, the fluctuating nature raises concern for possible lymphadenopathy. Differential diagnosis includes lipomas vs. lymph nodes. - Order [facility] CT scan of abdomen and pelvis to evaluate for lymphadenopathy vs. lipomas - Patient to fast for [address] scan Anemia Recent blood tests show a decrease in hemoglobin levels, indicating worsening anemia. Previous labs showed low iron indices and folic acid levels. No reported bleeding. - Add additional blood work to evaluate cause of anemia - Consider iron or folate supplementation based on test results - Follow up in 6 months to reassess -Follow-up labs unrevealing, peripheral smear pending COPD Patient reports satisfactory breathing with current medication regimen. Physical exam reveals +1 edema in ankles. - Continue Wixela 500, one puff twice daily - Continue as-needed albuterol - Maintain current COPD management Preventive Care Patient due for RSV vaccination. - Administer RSV vaccine during current visit Plan: Return to Clinic in 6 months with labs, [facility] [place] [facility] today Call as needed with problems Medications reconciled Medication Reconciliation: Education Evaluations *Was medication education provided for NEW medications or CHANGES to medications? (including medication name, dose, route, reason for use, and potential side effects). No new medications or medication changes during this encounter. TERATOGENIC MED & CONTRACEPTION REVIEW (Optional)... MEDICATION RECONCILIATION List Given: An updated medication list was provided to the patient/caregiver. Review Done: The medication list shown below was verified for accuracy and reviewed with the patient/caregiver. It includes all pending medications/active medications/all medications or discontinued within the last 90 days/all remote medications and non-VA medications. If a given category (i.e. remote meds) is not shown, that means that a patient doesn't have a medication(s) in that category. Allergies listed below were also reviewed/updated for accuracy. Allergies/ADR from [facility] may not display in CPRS. Use JLV MRT5 - Allergies/ADRs FACILITY ALLERGY/ADR -------- No Remote Allergy/ADR Data available for this patient [facility] CONTRAST MEDIA [facility] FISH [facility] LISINOPRIL [facility] LOBSTER [facility] METOPROLOL [facility] PENICILLIN [facility] SCALLOPS [facility] SIMVASTATIN [facility] TOPIRAMATE [facility] ZOLPIDEM Active and Recently Outpatient Medications (including Supplies): Issue Date Status Last Fill Active Outpatient Medications Refills Expiration 1) ALBUTEROL 90MCG (CFC-F) 200D ORAL INHL Qty: ACTIVE Issue: 10/11/23 2 for 50 days Sig: INHALE 2 PUFFS BY Refills: 5 Last : 12/06/23 INHALATION EVERY 4 HOURS NEEDED Expr : 10/11/24 Indication: FOR SHORTNESS OF BREATH 2) ATORVASTATIN CALCIUM 40MG TAB Qty: 90 for 90 ACTIVE (S) Issue: 09/29/24 days Sig: TAKE ONE TABLET BY MOUTH EVERY DAY Refills: 3 Last : 12/29/24 FOR CHOLESTEROL Expr : 09/30/25 3) BRIMONIDINE TARTRATE 0.2% OPH SOLN Qty: 10 ACTIVE Issue: 07/14/24 for 30 days Sig: INSTILL 1 DROP IN BOTH EYES Refills: 8 Last : 10/05/24 TWICE A DAY FOR GLAUCOMA SPACE 10 MINUTES Expr : 07/15/25 APART FROM OTHER EYE DROPS 4) BUSPIRONE HCL 5MG TAB Qty: 180 for 90 days ACTIVE Issue: 10/01/24 Sig: TAKE ONE TABLET BY MOUTH TWICE A DAY Refills: 3 Last : 10/02/24 Indication: FOR MOOD Expr : 10/02/25 5) CALCIUM CARBONATE 650MG (CA 260MG) TAB Qty: ACTIVE (S) Issue: 10/05/24 90 for 90 days Sig: TAKE ONE TABLET BY MOUTH Refills: 3 Last : 10/22/24 EVERY DAY Expr : 10/06/25 6) CARBOXYMETHYLCELLULOSE NA 0.25% OPH SOLN ACTIVE (S) Issue: 10/05/24 Qty: 30 for 30 days Sig: INSTILL 2 DROPS IN Refills: 3 Last : 11/11/24 OPERATIVE EYE EVERY 2 HOURS NEEDED Expr : 10/06/25 Indication: FOR DRY EYES 7) CHOLECALCIF 25MCG (D3-1,000UNIT) TAB Qty: ACTIVE (S) Issue: 10/05/24 100 for 90 days Sig: TAKE ONE TABLET BY Refills: 3 Last : 11/25/24 MOUTH EVERY DAY Expr : 10/06/25 8) CYANOCOBALAMIN 500MCG TAB Qty: 100 for 90 ACTIVE (S) Issue: 09/11/24 days Sig: TAKE ONE TABLET BY MOUTH EVERY DAY Refills: 2 Last : 12/01/24 Indication: FOR B12 SUPPLEMENT Expr : 09/12/25 9) DICLOFENAC NA 1% TOP GEL Qty: 100 for 30 ACTIVE (S) Issue: 10/05/24 days Sig: APPLY 2 GRAMS TOPICALLY THREE Refills: 3 Last : 10/05/24 TIMES A DAY NEEDED Expr : 10/06/25 Indication: FOOT PAIN 10) FLUTICAS 500/SALMETEROL 50 INHL DISK 60 Qty: ACTIVE (S) Issue: 10/05/24 3 for 90 days Sig: INHALE 1 PUFF BY Refills: 3 Last : 10/21/24 INHALATION TWICE A DAY *RINSE MOUTH AFTER Expr : 10/06/25 EACH USE* Indication: FOR COPD 11) FLUTICASONE PROP 50MCG 120D NASAL INHL Qty: ACTIVE (S) Issue: 10/05/24 3 for 90 days Sig: SPRAY 2 SPRAYS IN EACH Refills: 3 Last : 12/22/24 NOSTRIL EVERY DAY Expr : 10/06/25 Indication: FOR CONGESTION 12) GABAPENTIN 600MG TAB Qty: 180 for 90 days ACTIVE (S) Issue: 10/05/24 Sig: TAKE ONE TABLET BY MOUTH TWICE A DAY Refills: 3 Last : 11/19/24 Indication: FOR PAIN AND NUMBNESS Expr : 10/06/25 13) GUAIFENESIN 200MG TAB Qty: 100 for 30 days ACTIVE (S) Issue: 10/05/24 Sig: TAKE ONE TABLET BY MOUTH THREE TIMES A Refills: 5 Last : 10/05/24 DAY NEEDED FOR PHLEM Expr : 10/06/25 Indication: FOR PHLEM 14) LIDOCAINE 5% OINT Qty: 105 for 30 days Sig: ACTIVE Issue: 09/11/24 APPLY MODERATE AMOUNT TOPICALLY THREE TIMES Refills: 4 Last : 10/13/24 A DAY NEEDED Expr : 09/12/25 Indication: FOR PAIN 15) LIDOCAINE 5% PATCH Qty: 30 for 30 days Sig: ACTIVE Issue: 09/11/24 APPLY 1 PATCH TOPICALLY EVERY DAY NEEDED Refills: 4 Last : 10/13/24 Indication: FOR UP TO 12 HOURS FOR PAIN Expr : 09/12/25 16) POTASSIUM CL 20MEQ SA TAB (DISPERSIBLE) Qty: ACTIVE (S) Issue: 10/05/24 90 for 90 days Sig: TAKE ONE TABLET BY MOUTH Refills: 3 Last : 11/18/24 EVERY DAY Expr : 10/06/25 Indication: FOR POTASSIUM SUPPLEMENT 17) RIVAROXABAN 20MG TAB Qty: 90 for 90 days ACTIVE Issue: 02/29/24 Sig: TAKE ONE TABLET BY MOUTH EVERY DAY WITH Refills: 3 Last : 03/01/24 THE LARGEST MEAL OF THE DAY TO TREAT AND/OR Expr : 03/01/25 PREVENT BLOOD CLOTS 18) SERTRALINE HCL 100MG TAB Qty: 180 for 90 ACTIVE (S) Issue: 06/04/24 days Sig: TAKE TWO TABLETS BY MOUTH EVERY Refills: 1 Last : 11/22/24 DAY Expr : 06/05/25 Indication: FOR DEPRESSION & PTSD 19) TELMISARTAN 20MG TAB Qty: 90 for 90 days ACTIVE (S) Issue: 08/25/24 Sig: TAKE ONE TABLET BY MOUTH EVERY DAY Refills: 2 Last : 11/13/24 Indication: FOR BLOOD PRESSURE Expr : 08/26/25 20) TIOTROPIUM 2.5MCG/ACTUAT 60D ORAL INHL Qty: ACTIVE Issue: 10/11/23 3 for 90 days Sig: INHALE TWO PUFFS BY Refills: 2 Last : 01/25/24 INHALATION EVERY DAY Expr : 10/11/24 Indication: FOR COPD 21) TORSEMIDE 20MG TAB Qty: 90 for 90 days Sig: ACTIVE (S) Issue: 10/05/24 TAKE ONE TABLET BY MOUTH EVERY DAY Refills: 3 Last : 10/05/24 Indication: FOR EXCESS FLUID Expr : 10/06/25 22) VANICREAM TOP CREAM Qty: 454 for 30 days ACTIVE Issue: 09/11/24 Sig: APPLY THIN LAYER TOPICALLY DIRECTED Refills: 2 Last : 10/03/24 Indication: FOR DRY SKIN Expr : 09/12/25 Issue Date Status Last Fill Inactive Outpatient Medications Refills Expiration 1) ATORVASTATIN CALCIUM 40MG TAB Qty: 90 for 90 DISCONTINUED Issue: 10/11/23 days Sig: TAKE ONE TABLET BY MOUTH EVERY DAY Refills: 0 Last : 09/30/24 FOR CHOLESTEROL Expr : 10/11/24 2) CALCIUM CARBONATE 650MG (CA 260MG) TAB Qty: DISCONTINUED Issue: 03/13/24 90 for 90 days Sig: TAKE ONE TABLET BY MOUTH Refills: 2 Last : 07/24/24 EVERY DAY Expr : 03/14/25 3) CARBOXYMETHYLCELLULOSE NA 0.25% OPH SOLN DISCONTINUED Issue: 07/18/24 Qty: 30 for 30 days Sig: INSTILL 2 DROPS IN Refills: 0 Last : 10/12/24 OPERATIVE EYE EVERY 2 HOURS NEEDED Expr : 07/19/25 Indication: FOR DRY EYES 4) CHOLECALCIF 25MCG (D3-1,000UNIT) TAB Qty: DISCONTINUED Issue: 10/11/23 100 for 90 days Sig: TAKE ONE TABLET BY Refills: 0 Last : 08/27/24 MOUTH EVERY DAY Expr : 10/11/24 5) CYANOCOBALAMIN 500MCG TAB Qty: 100 for 90 DISCONTINUED Issue: 10/11/23 days Sig: TAKE ONE TABLET BY MOUTH EVERY DAY Refills: 2 Last : 12/30/23 Indication: FOR B12 SUPPLEMENT Expr : 10/11/24 6) DICLOFENAC NA 1% TOP GEL Qty: 100 for 30 DISCONTINUED Issue: 03/23/24 days Sig: APPLY 2 GRAMS TOPICALLY THREE Refills: 0 Last : 06/28/24 TIMES A DAY NEEDED Expr : 03/24/25 Indication: FOOT PAIN 7) FLUTICAS 500/SALMETEROL 50 INHL DISK 60 Qty: DISCONTINUED Issue: 10/11/23 3 for 90 days Sig: INHALE 1 PUFF BY Refills: 0 Last : 07/23/24 INHALATION TWICE A DAY *RINSE MOUTH AFTER Expr : 10/11/24 EACH USE* Indication: FOR COPD 8) FLUTICASONE PROP 50MCG 120D NASAL INHL Qty: DISCONTINUED Issue: 04/06/24 3 for 90 days Sig: SPRAY 2 SPRAYS IN EACH Refills: 1 Last : 09/23/24 NOSTRIL EVERY DAY Expr : 04/07/25 Indication: FOR CONGESTION 9) GABAPENTIN 300MG CAP Qty: 360 for 90 days DISCONTINUED Issue: 10/11/23 Sig: TAKE TWO CAPSULES BY MOUTH TWICE A DAY Refills: 1 Last : 04/24/24 Indication: FOR NERVE PAIN IN HANDS Expr : 10/11/24 10) GABAPENTIN 600MG TAB Qty: 180 for 90 days DISCONTINUED Issue: 05/31/24 Sig: TAKE ONE TABLET BY MOUTH TWICE A DAY Refills: 2 Last : 08/21/24 Indication: FOR PAIN AND NUMBNESS Expr : 06/01/25 11) HYDROCHLOROTHIAZIDE 25MG TAB Qty: 90 for 90 DISCONTINUED Issue: 04/06/24 days Sig: TAKE ONE TABLET BY MOUTH EVERY DAY Refills: 3 Last : 04/06/24 NEW STRENGTH Expr : 04/07/25 Indication: FOR BLOOD PRESSURE 12) LIDOCAINE 5% OINT Qty: 105 for 30 days Sig: DISCONTINUED Issue: 04/06/24 APPLY MODERATE AMOUNT TOPICALLY THREE TIMES Refills: 0 Last : 08/24/24 A DAY NEEDED Expr : 04/07/25 Indication: FOR PAIN 13) LIDOCAINE 5% PATCH Qty: 30 for 30 days Sig: DISCONTINUED Issue: 04/06/24 APPLY 1 PATCH TOPICALLY EVERY DAY NEEDED Refills: 0 Last : 08/24/24 Indication: FOR UP TO 12 HOURS FOR PAIN Expr : 04/07/25 14) POTASSIUM CL 20MEQ SA TAB (DISPERSIBLE) Qty: DISCONTINUED Issue: 05/31/24 90 for 90 days Sig: TAKE ONE TABLET BY MOUTH Refills: 2 Last : 08/20/24 EVERY DAY Expr : 06/01/25 Indication: FOR POTASSIUM SUPPLEMENT 15) SERTRALINE HCL 100MG TAB Qty: 135 for 90 DISCONTINUED Issue: 09/04/23 days Sig: TAKE ONE AND ONE-HALF TABLETS BY Refills: 2 Last : 01/16/24 MOUTH EVERY DAY Expr : 09/04/24 16) TELMISARTAN 20MG TAB Qty: 30 for 30 days DISCONTINUED Issue: 05/09/24 Sig: TAKE ONE TABLET BY MOUTH EVERY DAY Refills: 0 Last : 07/18/24 Indication: FOR BLOOD PRESSURE Expr : 05/10/25 17) TORSEMIDE 20MG TAB Qty: 30 for 30 days Sig: DISCONTINUED Issue: 09/11/24 TAKE ONE TABLET BY MOUTH EVERY DAY Refills: 4 Last : 10/13/24 Indication: FOR EXCESS FLUID Expr : 09/12/25 18) VANICREAM TOP CREAM Qty: 454 for 30 days DISCONTINUED Issue: 05/09/24 Sig: APPLY THIN LAYER TOPICALLY DIRECTED Refills: 0 Last : 08/24/24 Indication: FOR DRY SKIN Expr : 05/10/25 40 Total Medications /es/ Toney Pratt APRN, JANELLE Family Nurse Practitioner Signed: 10/06/2024 06:25 Receipt Acknowledged By: 10/07/2024 20:23 /johana/ GASTON CALDERÓN Staff Physician GASTON CALDERÓN [facility] Oct 06, 2024 06:14 AM INTERNAL MEDICINE NOTE: LOCAL TITLE: MEDICINE CLINIC NOTE STANDARD TITLE: INTERNAL MEDICINE NOTE DATE OF NOTE: OCT 06, 2024@06:14 ENTRY DATE: OCT 06, 2024@06:14:54 AUTHOR: J LUIS PRATT EXP COSIGNER: URGENCY: STATUS: COMPLETED MEDICINE CLINIC NOTE Has ADDENDA Subjective: The patient presents with a persistent headache lasting 3-4 months, characterized by constant pain romain to a band encircling the head, behind the eyes, and extending down the neck. The pain intensity is rated at 8/10, escalating to 10/10 with head movement. There are no accompanying symptoms of nausea or vomiting, but the patient's sleep is adversely affected due to pain upon movement. The increase in headache frequency and intensity coincides with an uptick in sertraline dosage from 150mg to 200mg in May. A brain CT scan conducted in June yielded normal results. Additionally, the patient reports discomfort in the colon area, accompanied by fluctuating lumps in the suprapubic region, persisting for several months without any urinary symptoms. The patient has undergone bilateral hernia repair in the past. The patient denies current smoking habits and reports minimal alcohol consumption. Social History: Substance use: Denies smoking, reports minimal alcohol consumption Review of Systems: General: Trouble sleeping Neurological: Persistent headache for 3-4 months, worsening with head movement Gastrointestinal: Discomfort in the colon area Musculoskeletal: Fluctuating lumps in suprapubic and inguinal areas Respiratory: Satisfactory breathing Cardiovascular: No bleeding reported Skin: No bleeding reported Objective: Vital Signs - Blood pressure: 127/80 mmHg - Heart rate: 84 bpm Physical Examination General NAD WDWN Ambulatory Overweight Conversive, pleasant Cardiac: RRR with normal S1 and S2; without murmur, gallop, rub. Chest/Lungs: Bilaterally clear, Clear to auscultation Abdomen: Lumps noted in the inguinal and suprapubic area, nontender Lipomas versus lymphadenopathy, nontender seem mostly soft and somewhat fluctuant. No irregularity with testes and penis. extremities: +1 edema Laboratory Imaging and Diagnostic Test Results Provider: EDUARDO PRATT Specimen: BLOOD. [id number] Specimen Collection Date: Oct 05, 2024@06:36 Test name Result units Ref. range Site Code WBC 4.5 10x3/uL 4.0 - 11.0 [618] RBC 4.10 L 10x6/uL 4.60 - 6.20 [618] HGB 11.9 L g/dL 13.5 - 17.9 [618] HCT 38.3 L % 41.0 - 54.0 [618] MCV 93.4 fL 80.0 - 100.0 [618] MCH 29.0 pg 27.0 - 33.0 [618] MCHC 31.1 L g/dL 32.0 - 37.5 [618] RDW 17.3 H % 11.5 - 14.5 [618] PLT 120 L 10x3/uL 150 - 400 [618] MPV 9.7 fL 9.1 - 13.0 [618] Specimen: PLASMA. [id number] Specimen Collection Date: Oct 05, 2024@06:36 Test name Result units Ref. range Site Code BNP 183 H pg/mL Ref: <=99 [618] Eval: Age related BNP cutoffs: Eval: <55 yrs:<100 pg/mL Eval: 55-64 yrs:<119 pg/mL Eval: 65-74 yrs:<160 pg/mL Eval: >=75 yrs:<254 pg/mL Eval: Eval: New test/ref range 01/17/19 Specimen: PLASMA. [id number] Specimen Collection Date: Oct 05, 2024@06:36 Test name Result units Ref. range Site Code .CREAT EGFR(CKD-EPI) 47 L Ref: >=60 [618] Eval: The eGFR generally decreases with age and in the general population, an Eval: eGFR >60mL/min/1.73 m2 in the absence of increased urine albumin excretion Eval: or structural abnormalities does not represent CKD. Eval: Eval: CKD is diagnosed based on abnormalities of kidney structure or function, Eval: present for >3 months, with implications for health and disease. CKD is Eval: classified and staged based on cause, eGFR, and albuminuria (quantified as Eval: urine albumin to creatinine ratio). Eval: Eval: Below are the eGFR cut off values for CKD stages: Eval: Eval: eGFR (mL/min/1.73 1.73 m2) CKD stage Interpretation Eval: >=90 G1 Normal Eval: 60-89 G2 Mild decrease Eval: 45-59 G3A Mild to moderate decrease Eval: 30-44 G3B Moderate to severe decrease Eval: 15-29 G4 Severe decrease Eval: <15 G5 Kidney failure TSH 1.62 uIU/mL 0.35 - 4.94 [618] SODIUM 138 mmol/L 136 - 145 [618] POTASSIUM 4.5 mmol/L 3.5 - 5.1 [618] Eval: Serum potassium results are generally 5% higher than plasma. CHLORIDE 102 mmol/L 98 - 107 [618] CO2 27 mmol/L 22 - 29 [618] Eval: To calculate Anion Gap use (Na)-[(Cl)+CO2] ANION GAP 9 mmol/L 5 - 15 [618] GLUCOSE 99 mg/dL 70 - 100 [618] Eval: Reference Range is based on fasting specimen. Eval: Patients taking Sulfasalazine may see a negative bias on Glucose Eval: levels. UREA NITROGEN 36 H mg/dL 8 - 26 [618] CREATININE 1.5 H mg/dL 0.7 - 1.2 [618] PROTEIN,TOTAL 7.4 g/dL 6.4 - 8.3 [618] ALBUMIN 3.9 g/dL 3.5 - 5.0 [618] CALCIUM 9.3 mg/dL 8.4 - 10.2 [618] MAGNESIUM 2.0 mg/dL 1.6 - 2.6 [618] BILIRUBIN, TOTAL 0.8 mg/dL 0.2 - 1.2 [618] ALKALINE PHOSPHATASE 62 U/L 40 - 150 [618] AST/SGOT 20 U/L 11 - 34 [618] ALT/SGPT 7 U/L Ref: <=44 [618] Eval: Patients taking Sulfasalazine may see a negative bias on ALT levels CHOLESTEROL 134 mg/dL Ref: <=199 [618] Eval: Guidelines established by National Cholesterol Education Program Eval: Desirable <200 mg/dL Eval: Borderline High 200-239 mg/dL Eval: High >=240 mg/dL TRIG(NON FASTING) 62 mg/dL Ref: <=149 [618] Eval: Guidelines established by National Cholesterol Education Program Eval: Normal <150 mg/dL Eval: Borderline High 150-199 mg/dL Eval: High 200-499 mg/dL Eval: Very High >/=500 mg/dL Eval: REFERENCE RANGE BASED ON FASTING SPECIMEN .HDL 69 mg/dL Ref: >=40 [618] Eval: Guidelines established by National Cholesterol Education Program: Eval: HDL >= 60 mg/dL is considered a negative risk factor for heart disease. LDL CALCULATION 53 mg/dL Ref: <=99 [618] Eval: Based on the National Cholesterol Education Guidelines, Eval: optimal level for LDL is <100 mg/dl. VLDL CALCULATION 12 mg/dL Ref: <=29 [618] Eval: Reference range is dependent on multiple factors. NON HDL CHOLESTEROL 65 mg/dL Ref: <=129 [618] Eval: Desirable level for Non HDL Cholesterol is < 130 mg/dL Eval: Non HDL Cholesterol = total cholesterol minus HDL. Eval: It includes all apo B containing lipoproteins, Eval: including remnants. It is not affected by fasting. Eval: ([facility] [id number]) Specimen: BLOOD. [id number] Specimen Collection Date: Oct 05, 2024@06:36 Test name Result units Ref. range Site Code PS Spec SLIDES MADE [618] Specimen: SERUM. [id number] Specimen Collection Date: Oct 05, 2024@06:36 Test name Result units Ref. range Site Code B 12 648 pg/mL 213 - 816 [618] Eval: The Vitamin B12 assay has poor diagnostic utility in the low normal Eval: range of the assay. Vitamin B12 results less than 300 pg/ml will Eval: automatically be reflexed for the measurement of methylmalonic acid Eval: to aid in the definitive diagnosis of Vitamin B12 deficiency. Eval: Increased concentrations of methylmalonic acid indicate low tissue Eval: stores of Vitamin B12. IRON 88 ug/dL 65 - 175 [618] TRANSFERRIN 231 mg/dL 163 - 382 [618] TIBC,CALCULATED 289 ug/dL 250 - 425 [618] IRON SATURATION 30 % 20 - 50 [618] FERRITIN 607.6 H ng/mL 21.8 - 274.7 [618] Eval: Individual ferritin plasma concentration values may be approximately 10% Eval: higher than serum values. Comment: Specimen received is PLASMA. Specimen: PLASMA. [id number] Specimen Collection Date: Oct 05, 2024@06:36 Test name Result units Ref. range Site Code FOLATE 7.7 ng/mL Ref: >=7.0 [618] Eval: For folate results below the normal range, homocysteine and methylmalonic Eval: acid (MMA) testing is performed in order to confirm folate Eval: deficiency or differentiate folate deficiency from B12 deficiency. Eval: A serum folate less than 7 ng/mL is below our normal range. Eval: However, folate deficiency is typically associated with folate Eval: levels less than 4 ng/mL. Folate deficiency is commonly Eval: associated with elevated homocysteine together with a normal MMA. Eval: B12 deficiency is commonly associated with elevated homocysteine Eval: and elevated MMA FERRITIN 600.3 H ng/mL 21.8 - 274.7 [618] 07/23 CT Head Impression: 1. Frontal lobe volume loss is relatively stable. 2. Arterial calcification. Assessment & Plan: Chronic Headache Patient reports a constant headache for the past 3-4 months, described as a band around the head, behind the eyes, and down the neck. Pain is exacerbated by head movement, rated 8/10 at baseline, increasing to 10/10 with certain head positions. No associated nausea or vomiting, but sleep disturbance is noted. A CT scan of the head in June was normal. The onset of headaches coincides with an increase in sertraline dosage from 150mg to 200mg in May. Given the 25% incidence of headaches as a side effect of sertraline and the temporal relationship with the dose increase, the headaches are likely medication- induced. - Notify Dr. Calderón regarding sertraline-induced headaches - Recommend reduction of sertraline dosage from 200mg to 150mg - Follow up with Dr. Calderón for potential medication adjustment for depression and anxiety management Inguinal lumps -lymphadenopathy versus lipomas Patient reports fluctuating lumps in the suprapubic and inguinal areas, present for several months without associated urinary symptoms. Initially thought to be lipomas by neurologist, the fluctuating nature raises concern for possible lymphadenopathy. Differential diagnosis includes lipomas vs. lymph nodes. - Order [facility] CT scan of abdomen and pelvis to evaluate for lymphadenopathy vs. lipomas - Patient to fast for [address] scan Anemia Recent blood tests show a decrease in hemoglobin levels, indicating worsening anemia. Previous labs showed low iron indices and folic acid levels. No reported bleeding. - Add additional blood work to evaluate cause of anemia - Consider iron or folate supplementation based on test results - Follow up in 6 months to reassess -Follow-up labs unrevealing, peripheral smear pending COPD Patient reports satisfactory breathing with current medication regimen. Physical exam reveals +1 edema in ankles. - Continue Wixela 500, one puff twice daily - Continue as-needed albuterol - Maintain current COPD management Preventive Care Patient due for RSV vaccination. - Administer RSV vaccine during current visit Plan: Return to Clinic in 6 months with labs, [facility] Labs today Call as needed with problems Medications reconciled Medication Reconciliation: Education Evaluations *Was medication education provided for NEW medications or CHANGES to medications? (including medication name, dose, route, reason for use, and potential side effects). No new medications or medication changes during this encounter. TERATOGENIC MED & CONTRACEPTION REVIEW (Optional)... MEDICATION RECONCILIATION List Given: An updated medication list was provided to the patient/caregiver. Review Done: The medication list shown below was verified for accuracy and reviewed with the patient/caregiver. It includes all pending medications/active medications/all medications or discontinued within the last 90 days/all remote medications and non-VA medications. If a given category (i.e. remote meds) is not shown, that means that a patient doesn't have a medication(s) in that category. Allergies listed below were also reviewed/updated for accuracy. Allergies/ADR from [facility] may not display in CPRS. Use JLV MRT5 - Allergies/ADRs FACILITY ALLERGY/ADR -------- No Remote Allergy/ADR Data available for this patient [facility] CONTR[facility] MEDIA [facility] FISH [facility] LISINOPRIL [facility] LOBSTER [facility] METOPROLOL [facility] PENICILLIN [facility] SCALLOPS [facility] SIMVASTATIN [facility] TOPIRAMATE [facility] ZOLPIDEM Active and Recently Outpatient Medications (including Supplies): Issue Date Status Last Fill Active Outpatient Medications Refills Expiration 1) ALBUTEROL 90MCG (CFC-F) 200D ORAL INHL Qty: ACTIVE Issue: 10/11/23 2 for 50 days Sig: INHALE 2 PUFFS BY Refills: 5 Last : 12/06/23 INHALATION EVERY 4 HOURS NEEDED Expr : 10/11/24 Indication: FOR SHORTNESS OF BREATH 2) ATORVASTATIN CALCIUM 40MG TAB Qty: 90 for 90 ACTIVE (S) Issue: 09/29/24 days Sig: TAKE ONE TABLET BY MOUTH EVERY DAY Refills: 3 Last : 12/29/24 FOR CHOLESTEROL Expr : 09/30/25 3) BRIMONIDINE TARTRATE 0.2% OPH SOLN Qty: 10 ACTIVE Issue: 07/14/24 for 30 days Sig: INSTILL 1 DROP IN BOTH EYES Refills: 8 Last : 10/05/24 TWICE A DAY FOR GLAUCOMA SPACE 10 MINUTES Expr : 07/15/25 APART FROM OTHER EYE DROPS 4) BUSPIRONE HCL 5MG TAB Qty: 180 for 90 days ACTIVE Issue: 10/01/24 Sig: TAKE ONE TABLET BY MOUTH TWICE A DAY Refills: 3 Last : 10/02/24 Indication: FOR MOOD Expr : 10/02/25 5) CALCIUM CARBONATE 650MG (CA 260MG) TAB Qty: ACTIVE (S) Issue: 10/05/24 90 for 90 days Sig: TAKE ONE TABLET BY MOUTH Refills: 3 Last : 10/22/24 EVERY DAY Expr : 10/06/25 6) CARBOXYMETHYLCELLULOSE NA 0.25% OPH SOLN ACTIVE (S) Issue: 10/05/24 Qty: 30 for 30 days Sig: INSTILL 2 DROPS IN Refills: 3 Last : 11/11/24 OPERATIVE EYE EVERY 2 HOURS NEEDED Expr : 10/06/25 Indication: FOR DRY EYES 7) CHOLECALCIF 25MCG (D3-1,000UNIT) TAB Qty: ACTIVE (S) Issue: 10/05/24 100 for 90 days Sig: TAKE ONE TABLET BY Refills: 3 Last : 11/25/24 MOUTH EVERY DAY Expr : 10/06/25 8) CYANOCOBALAMIN 500MCG TAB Qty: 100 for 90 ACTIVE (S) Issue: 09/11/24 days Sig: TAKE ONE TABLET BY MOUTH EVERY DAY Refills: 2 Last : 12/01/24 Indication: FOR B12 SUPPLEMENT Expr : 09/12/25 9) DICLOFENAC NA 1% TOP GEL Qty: 100 for 30 ACTIVE (S) Issue: 10/05/24 days Sig: APPLY 2 GRAMS TOPICALLY THREE Refills: 3 Last : 10/05/24 TIMES A DAY NEEDED Expr : 10/06/25 Indication: FOOT PAIN 10) FLUTICAS 500/SALMETEROL 50 INHL DISK 60 Qty: ACTIVE (S) Issue: 10/05/24 3 for 90 days Sig: INHALE 1 PUFF BY Refills: 3 Last : 10/21/24 INHALATION TWICE A DAY *RINSE MOUTH AFTER Expr : 10/06/25 EACH USE* Indication: FOR COPD 11) FLUTICASONE PROP 50MCG 120D NASAL INHL Qty: ACTIVE (S) Issue: 10/05/24 3 for 90 days Sig: SPRAY 2 SPRAYS IN EACH Refills: 3 Last : 12/22/24 NOSTRIL EVERY DAY Expr : 10/06/25 Indication: FOR CONGESTION 12) GABAPENTIN 600MG TAB Qty: 180 for 90 days ACTIVE (S) Issue: 10/05/24 Sig: TAKE ONE TABLET BY MOUTH TWICE A DAY Refills: 3 Last : 11/19/24 Indication: FOR PAIN AND NUMBNESS Expr : 10/06/25 13) GUAIFENESIN 200MG TAB Qty: 100 for 30 days ACTIVE (S) Issue: 10/05/24 Sig: TAKE ONE TABLET BY MOUTH THREE TIMES A Refills: 5 Last : 10/05/24 DAY NEEDED FOR PHLEM Expr : 10/06/25 Indication: FOR PHLEM 14) LIDOCAINE 5% OINT Qty: 105 for 30 days Sig: ACTIVE Issue: 09/11/24 APPLY MODERATE AMOUNT TOPICALLY THREE TIMES Refills: 4 Last : 10/13/24 A DAY NEEDED Expr : 09/12/25 Indication: FOR PAIN 15) LIDOCAINE 5% PATCH Qty: 30 for 30 days Sig: ACTIVE Issue: 09/11/24 APPLY 1 PATCH TOPICALLY EVERY DAY NEEDED Refills: 4 Last : 10/13/24 Indication: FOR UP TO 12 HOURS FOR PAIN Expr : 09/12/25 16) POTASSIUM CL 20MEQ SA TAB (DISPERSIBLE) Qty: ACTIVE (S) Issue: 10/05/24 90 for 90 days Sig: TAKE ONE TABLET BY MOUTH Refills: 3 Last : 11/18/24 EVERY DAY Expr : 10/06/25 Indication: FOR POTASSIUM SUPPLEMENT 17) RIVAROXABAN 20MG TAB Qty: 90 for 90 days ACTIVE Issue: 02/29/24 Sig: TAKE ONE TABLET BY MOUTH EVERY DAY WITH Refills: 3 Last : 03/01/24 THE LARGEST MEAL OF THE DAY TO TREAT AND/OR Expr : 03/01/25 PREVENT BLOOD CLOTS 18) SERTRALINE HCL 100MG TAB Qty: 180 for 90 ACTIVE (S) Issue: 06/04/24 days Sig: TAKE TWO TABLETS BY MOUTH EVERY Refills: 1 Last : 11/22/24 DAY Expr : 06/05/25 Indication: FOR DEPRESSION & PTSD 19) TELMISARTAN 20MG TAB Qty: 90 for 90 days ACTIVE (S) Issue: 08/25/24 Sig: TAKE ONE TABLET BY MOUTH EVERY DAY Refills: 2 Last : 11/13/24 Indication: FOR BLOOD PRESSURE Expr : 08/26/25 20) TIOTROPIUM 2.5MCG/ACTUAT 60D ORAL INHL Qty: ACTIVE Issue: 10/11/23 3 for 90 days Sig: INHALE TWO PUFFS BY Refills: 2 Last : 01/25/24 INHALATION EVERY DAY Expr : 10/11/24 Indication: FOR COPD 21) TORSEMIDE 20MG TAB Qty: 90 for 90 days Sig: ACTIVE (S) Issue: 10/05/24 TAKE ONE TABLET BY MOUTH EVERY DAY Refills: 3 Last : 10/05/24 Indication: FOR EXCESS FLUID Expr : 10/06/25 22) VANICREAM TOP CREAM Qty: 454 for 30 days ACTIVE Issue: 09/11/24 Sig: APPLY THIN LAYER TOPICALLY DIRECTED Refills: 2 Last : 10/03/24 Indication: FOR DRY SKIN Expr : 09/12/25 Issue Date Status Last Fill Inactive Outpatient Medications Refills Expiration 1) ATORVASTATIN CALCIUM 40MG TAB Qty: 90 for 90 DISCONTINUED Issue: 10/11/23 days Sig: TAKE ONE TABLET BY MOUTH EVERY DAY Refills: 0 Last : 09/30/24 FOR CHOLESTEROL Expr : 10/11/24 2) CALCIUM CARBONATE 650MG (CA 260MG) TAB Qty: DISCONTINUED Issue: 03/13/24 90 for 90 days Sig: TAKE ONE TABLET BY MOUTH Refills: 2 Last : 07/24/24 EVERY DAY Expr : 03/14/25 3) CARBOXYMETHYLCELLULOSE NA 0.25% OPH SOLN DISCONTINUED Issue: 07/18/24 Qty: 30 for 30 days Sig: INSTILL 2 DROPS IN Refills: 0 Last : 10/12/24 OPERATIVE EYE EVERY 2 HOURS NEEDED Expr : 07/19/25 Indication: FOR DRY EYES 4) CHOLECALCIF 25MCG (D3-1,000UNIT) TAB Qty: DISCONTINUED Issue: 10/11/23 100 for 90 days Sig: TAKE ONE TABLET BY Refills: 0 Last : 08/27/24 MOUTH EVERY DAY Expr : 10/11/24 5) CYANOCOBALAMIN 500MCG TAB Qty: 100 for 90 DISCONTINUED Issue: 10/11/23 days Sig: TAKE ONE TABLET BY MOUTH EVERY DAY Refills: 2 Last : 12/30/23 Indication: FOR B12 SUPPLEMENT Expr : 10/11/24 6) DICLOFENAC NA 1% TOP GEL Qty: 100 for 30 DISCONTINUED Issue: 03/23/24 days Sig: APPLY 2 GRAMS TOPICALLY THREE Refills: 0 Last : 06/28/24 TIMES A DAY NEEDED Expr : 03/24/25 Indication: FOOT PAIN 7) FLUTICAS 500/SALMETEROL 50 INHL DISK 60 Qty: DISCONTINUED Issue: 10/11/23 3 for 90 days Sig: INHALE 1 PUFF BY Refills: 0 Last : 07/23/24 INHALATION TWICE A DAY *RINSE MOUTH AFTER Expr : 10/11/24 EACH USE* Indication: FOR COPD 8) FLUTICASONE PROP 50MCG 120D NASAL INHL Qty: DISCONTINUED Issue: 04/06/24 3 for 90 days Sig: SPRAY 2 SPRAYS IN EACH Refills: 1 Last : 09/23/24 NOSTRIL EVERY DAY Expr : 04/07/25 Indication: FOR CONGESTION 9) GABAPENTIN 300MG CAP Qty: 360 for 90 days DISCONTINUED Issue: 10/11/23 Sig: TAKE TWO CAPSULES BY MOUTH TWICE A DAY Refills: 1 Last : 04/24/24 Indication: FOR NERVE PAIN IN HANDS Expr : 10/11/24 10) GABAPENTIN 600MG TAB Qty: 180 for 90 days DISCONTINUED Issue: 05/31/24 Sig: TAKE ONE TABLET BY MOUTH TWICE A DAY Refills: 2 Last : 08/21/24 Indication: FOR PAIN AND NUMBNESS Expr : 06/01/25 11) HYDROCHLOROTHIAZIDE 25MG TAB Qty: 90 for 90 DISCONTINUED Issue: 04/06/24 days Sig: TAKE ONE TABLET BY MOUTH EVERY DAY Refills: 3 Last : 04/06/24 NEW STRENGTH Expr : 04/07/25 Indication: FOR BLOOD PRESSURE 12) LIDOCAINE 5% OINT Qty: 105 for 30 days Sig: DISCONTINUED Issue: 04/06/24 APPLY MODERATE AMOUNT TOPICALLY THREE TIMES Refills: 0 Last : 08/24/24 A DAY NEEDED Expr : 04/07/25 Indication: FOR PAIN 13) LIDOCAINE 5% PATCH Qty: 30 for 30 days Sig: DISCONTINUED Issue: 04/06/24 APPLY 1 PATCH TOPICALLY EVERY DAY NEEDED Refills: 0 Last : 08/24/24 Indication: FOR UP TO 12 HOURS FOR PAIN Expr : 04/07/25 14) POTASSIUM CL 20MEQ SA TAB (DISPERSIBLE) Qty: DISCONTINUED Issue: 05/31/24 90 for 90 days Sig: TAKE ONE TABLET BY MOUTH Refills: 2 Last : 08/20/24 EVERY DAY Expr : 06/01/25 Indication: FOR POTASSIUM SUPPLEMENT 15) SERTRALINE HCL 100MG TAB Qty: 135 for 90 DISCONTINUED Issue: 09/04/23 days Sig: TAKE ONE AND ONE-HALF TABLETS BY Refills: 2 Last : 01/16/24 MOUTH EVERY DAY Expr : 09/04/24 16) TELMISARTAN 20MG TAB Qty: 30 for 30 days DISCONTINUED Issue: 05/09/24 Sig: TAKE ONE TABLET BY MOUTH EVERY DAY Refills: 0 Last : 07/18/24 Indication: FOR BLOOD PRESSURE Expr : 05/10/25 17) TORSEMIDE 20MG TAB Qty: 30 for 30 days Sig: DISCONTINUED Issue: 09/11/24 TAKE ONE TABLET BY MOUTH EVERY DAY Refills: 4 Last : 10/13/24 Indication: FOR EXCESS FLUID Expr : 09/12/25 18) VANICREAM TOP CREAM Qty: 454 for 30 days DISCONTINUED Issue: 05/09/24 Sig: APPLY THIN LAYER TOPICALLY DIRECTED Refills: 0 Last : 08/24/24 Indication: FOR DRY SKIN Expr : 05/10/25 40 Total Medications /johana/ Toney Pratt APRN, [facility]FER[facility] CENTER COORDINATOR Family Nurse Practitioner Signed: 10/06/2024 06:25 Receipt Acknowledged By: 10/07/2024 20:23 /johana/ GASTON CALDERÓN Staff Physician 10/11/2024 ADDENDUM STATUS: COMPLETED Called Mr. Iglesias twice to discuss concerns vis-a-vis increase in headaches (reported to Dr. Pratt) after sertraline increase - Both calls went to [facility], left a message indicating the reason for my call and leaving the clinic number for call back. Will add nurse partner Kristina Raza RN as FYI, in the event Mr. Iglesias should call back while this writer producer is not in clinic. /johana/ GASTON CALDERÓN Staff Physician Signed: 10/11/2024 16:23 Receipt Acknowledged By: * AWAITING SIGNATURE * KRISTINA RAZA [facility] Oct 05, 2024 07:42 AM INTERNAL MEDICINE OUTPATIENT NOTE: LOCAL TITLE: MEDICINE CLINIC NURSING NOTE STANDARD TITLE: INTERNAL MEDICINE OUTPATIENT NOTE DATE OF NOTE: OCT 05, 2024@07:42 ENTRY DATE: OCT 05, 2024@07:42:54 AUTHOR: JESSY WU COSIGNER: URGENCY: STATUS: COMPLETED MEDICINE CLINIC NURSING [...] (January 03, 2024) VITAL SIGNS: Blood Pressure: 127/78 (10/05/2024 07:41) Pulse: 84 (10/05/2024 07:41) Respiration: 17 (10/05/2024 07:41) Temperature: 98.2 F [36.8 C] (10/05/2024 07:41) Weight: 167.8 lb [76.11 kg] (10/05/2024 07:41) Height: 65 in [165.1 cm] (10/05/2024 07:41) BMI: 28.0 O2 Sat: 93% (10/05/2024 07:41) Pain: 7 (10/05/2024 07:41) MEDICATION Over the Counter/Herbal Medications: The patient denies taking any outside medications or herbals. Tobacco Use Screening: The patient is a former cigarette smoker. The patient has never used other types of tobacco. Pt to discuss RSV vaccine with provider first. /johana/ JESSY WU LPN, LPN Signed: 10/05/2024 07:44 10/05/2024 ADDENDUM STATUS: COMPLETED RSV Immunization: Respiratory Syncytial Virus (RSV) Vaccine: RSV vaccine administered today. Administered: RSV, BIVALENT, PROTEIN SUBUNIT RSVPREF, DILUENT RECONSTITUTED, 0.5 ML, PF Date Administered: Oct 05, 2024 08:00 Ged Instructor: [employer] Lot: [id number] Exp Date: Jun 29, 2025 NDC: [id number] Admin Route/Site: INTRAMUSCULAR/LEFT DELTOID Dosage: 0.5mL Vaccine Information Statement(s): RSV (RESPIRATORY SYNCYTIAL VIRUS) VACCINE VIS Jun 15, 2024 ([place]) Order By: Policy Administered By: Jasmina Tovar Vaccine Information Sheet (VIS) was given to the patient/caregiver, education regarding adverse reactions was discussed, as well as barriers to learning, if any, were acknowledged. /johana/ JASMINA TOVAR LPN Signed: 10/05/2024 09:01 JESSY WU [facility]
--- OUTSIDE RECORDS SUMMARY | 2024-10-09 09:29 | XMS_ITS ---
Author Name [facility] Organization [facility] Address [address] [place] [address] Care Team Providers Care Facsimile Operator Name Role Phone EDUARDO PAUL Primary Care [...] PART A Sep 30, 2010 PART A [phone] Isaac IGLESIAS PATIENT MEDICARE (WNR) MEDICARE (M) PART A Sep 30, 2010 PART A [id number] [phone] Isaac IGLESIAS PATIENT Selected Encounter This section includes the information on record at [place] for the Encounter. Date/Time Encounter Type Encounter Description Reason Provider Source Oct 09, 2024 02:29 PM [facility] OL DIG ASSMT&MGMT 11-20 CLINICAL PHARMACY ICD-10-CM Z79.01 alf (current) use of anticoagulants GOLDEN CUNHA Encounter Template Text not used by [place] Assessments - Encounter Diagnoses This section includes the primary and secondary diagnoses documented for the Encounter. Date/Time Primary/Secondary Diagnosis Diagnosis Name Provider Source Oct 09, 2024 02:38 PM PRIMARY alf (current) use of anticoagulants [facility] Oct 09, 2024 02:38 PM [facility]ONDARY Encounter for therapeutic drug level [facility] Oct 09, 2024 02:38 PM SECONDARY Personal history of other venous thrombosis and embolism [facility] Plan of Treatment: Future Appointments (+ 6 months) and Future Tests (+/- 45 days) The Plan of Treatment section includes future care activities for the patient from all [facility]. This section includes future appointments and future orders which are active, pending or scheduled. Future Appointments This section includes appointments that were scheduled to occur 6 months from the date of the Encounter, up to a maximum of 20 appointments. The data comes from all [facility] facilities. Appointment Date/Time Appointment Type Appointme nt Facility Name Oct 24, 2024 07:45 AM [facility] Nov 10, 2024 09:00 AM [facility] Nov 17, 2024 11:00 AM [facility] Dec 11, 2024 08:30 [facility] January 16, 2025 08:20 AM AMBULATORY - SURGERY [facility] January 16, 2025 08:40 AM AMBULATORY - SURGERY [facility] January 17, 2025 08:00 AM AMBULATORY - REHAB MEDICIN E [facility] Feb 13, 2025 02:00 PM AMBULATORY - PSYCHIATRY [facility] Apr 05, 2025 07:00 AM [facility] Apr 05, 2025 08:00 AM AMBULATORY - MEDICINE [facility] Lab Results: +/- 30 days of the encounter This section includes the Chemistry and Hematology Lab Results on record with [place] for the patient. Radiology Reports and Pathology Reports are provided separately, in subsequent sections. Lab Results This section contains the Chemistry/Hematology Results that were resulted 30 days before or 30 daysafter the date of the Encounter. Date/Time Source Result Type Result - Unit Interpretation Reference Range Specimen Type Comment Oct 24, 2024 08:29 AM [facility] CBC BLOOD Specimen Type: BLOOD No comment entered. Ordering Provider: YULI PAUL Report Released Date/Time: Oct 10, 2024 02:35 PM Reporting Lab: [facility] [id number] Performing Lab: [facility] [phone] WBC 6.3 4.0-11.0 RBC 4.26 L 4.60-6.20 HGB 12.8 g/dL L 13.5-17.9 HCT 41.1 41.0-54.0 MCV 96.5 fL 80.0-100.0 MCH 30.0 pg 27.0-33.0 MCHC 31.1 g/dL L 32.0-37.5 PLT 179 150-400 MPV 9.5 fL 9.1-13.0 RDW 16.9 H 11.5-14.5 Oct 24, 2024 08:29 AM [facility] ELP/IMMFIX,SERUM PANEL SERUM Speci men Type: SERUM No comment entered. Ordering Provider: EDUARDO PAUL Report Released Date/Time: Oct 10, 2024 02:35 PM Reporting Lab: [facility] [phone] Performing Lab: [facility] [phone] PROTEIN,TOTAL 7.9 g/dL 6.4-8.3 .ALBUMIN FRACTION 4.36 g/dL 3.66-4.78 .ALPHA 1 FRACTION 0.32 g/dL 0.14-0.38 .ALPHA 2 FRACTION 0.75 g/dL 0.50-0.90 .BETA 1 FRACTION 0.51 g/dL 0.33-0.55 .BETA 2 FRACTION 0.48 g/dL 0.20-0.52 .GAMMA FRACTION 1.48 g/dL 0.58-1.72 .TOTAL PROTEIN 7.9 g/dL 6.0-8.3 .INTERPRETATION NO MONOCLONALS DETECTED Oct 05, 2024 06:36 AM [facility] TSH W/REFLEX TO FREE T4 PLASMA Spec imen Type: PLASMA No comment entered. Ordering Provider: EDUARDO PAUL Report Released Date/Time: Apr 06, 2024 09:08 AM Reporting Lab: [facility] [phone] Performing Lab: [facility] [address] TSH 1.62 u[IU]/mL 0.35-4.94 Oct 05, 2024 06:36 AM [facility] BNP PLASMA Specimen Type : PLASMA No comment entered. Ordering Provider: EDUARDO PAUL Report Released Date/Time: Apr 06, 2024 09:08 AM Reporting Lab: [facility] [address] Performing Lab: [facility] [address] BNP 183 pg/mL H <99 Oct 05, 2024 06:36 AM [facility] LIPID PANEL,NON-FASTING PLASMA Specimen Type: PLASMA No comment entered. Ordering Provider: EDUARDO PAUL Report Released Date/Time: Apr 06, 2024 09:08 AM Reporting Lab: [facility] [address] Performing Lab: [facility] [address] CHOLESTEROL 134 mg/dL <199 .HDL 69 mg/dL >40 LDL CALCULATION 53 mg/dL <99 VLDL CALCULATION 12 mg/dL <29 NON HDL CHOLESTEROL 65 mg/dL <129 TRIG(NON FASTING) 62 mg/dL <149 Oct 05, 2024 06:36 AM [facility] CBC BLOOD Specimen Type: BLOOD No comment entered. Ordering Provider: EDUARDO PAUL Report Released Date/Time: Apr 06, 2024 09:08 AM Reporting Lab: [facility] [address] Performing Lab: [facility] [address] WBC 4.5 4.0-11.0 RBC 4.10 L 4.60-6.20 HGB 11.9 g/dL L 13.5-17.9 HCT 38.3 L 41.0-54.0 MCV 93.4 fL 80.0-100.0 MCH 29.0 pg 27.0-33.0 MCHC 31.1 g/dL L 32.0-37.5 PLT 120 L 150-400 MPV 9.7 fL 9.1-13.0 RDW 17.3 H 11.5-14.5 Oct 05, 2024 06:36 AM [facility] COMPREHENSIVE METABOLIC PANEL+MG PLASMA Specimen Type: PLASMA No comment entered. Ordering Provider: EDUARDO PAUL Report Released Date/Time: Apr 06, 2024 09:08 AM Reporting Lab: [facility] [address] Performing Lab: [facility] [address] CREATININE 1.5 mg/dL H 0.7-1.2 UREA NITROGEN [...] L >60 Oct 05, 2024 06:36 AM [facility] FOLATE PLASMA Specimen Type : PLASMA No comment entered. Ordering Provider: EDUARDO PAUL Report Released Date/Time: Oct 05, 2024 08:40 AM Reporting Lab: [facility] [address] Performing Lab: [facility] [address] FOLATE 7.7 ng/mL >7.0 Oct 05, 2024 06:36 AM [facility] B 12 SERUM Specimen Type : SERUM Comment: Specimen received is PLASMA. Ordering Provider: EDUARDO PAUL Report Released Date/Time: Oct 05, 2024 08:40 AM Reporting Lab: [facility] [address] Performing Lab: [facility] [address] B 12 648 pg/mL 213-816 Oct 05, 2024 06:36 AM [facility] IRON GROUP SERUM Specimen Type : SERUM Comment: Specimen received is PLASMA. Ordering Provider: EDUARDO PAUL Report Released Date/Time: Oct 05, 2024 08:40 AM Reporting Lab: [facility] [phone] Performing Lab: [facility] [address] IRON 88 ug/dL 65-175 TIBC,CALCULATED 289 ug/dL 250-425 FERRITIN 600.3 ng/mL H 21.8-274.7 IRON SATURATION 30 20-50 TRANSFERRIN 231 mg/dL 163-382 Oct 05, 2024 06:36 AM [facility] PERIPHERAL SMEAR PATHOLOGIST REVIEW BLOOD Specimen Type: BLOOD No comment entered. Ordering Provider: EDUARDO PAUL Report Released Date/Time: Oct 05, 2024 08:40 AM Reporting Lab: [facility] [address] Performing Lab: [facility] [address] PERIPHERAL SMEAR PATHOLOGIST REVIEW SLIDES MADE Oct 05, 2024 06:36 AM [facility] FERRITIN PLASMA Specimen Type : PLASMA No comment entered. Ordering Provider: EDUARDO PAUL Report Released Date/Time: Oct 05, 2024 08:40 AM Reporting Lab: [facility] [address] Performing Lab: [facility] [address] FERRITIN 600.3 ng/mL H 21.8-274.7 Social History: Smoking Status (Most current) and [...] Anuja alexis Oct 05, 2024 08:00 AM [place]-TOBACCO USE FORMER CIGARETTES [facility] Tobacco Use History This section includes a history of the smoking, or tobacco-related health factors, that were collected on or before the date of the Encounter. The data comes from the [place] facility where the Encounter took place. Date/Time Smoking Status/Tobacco Use Comment F acility Oct 05, 2024 08:00 AM [place]-TOBACCO USE FORMER CIGARETTES [facility] Oct 11, 2023 08:00 AM [place]-TOBACCO FORMER USER [facility] Oct 11, 2023 08:00 AM [place]-TOBACCO QUIT 15 YRS OR MORE [facility] [...] this document. The data comes from all [place] facilities. Date Advance Directives Provider Source Dec [...] CT (AP) ABDOMEN/PE LVIS (P): ROSS IGLESIAS [id number] -1945 M Exm Date: OCT 24, 2024@07:17 Req Phys: EDUARDO PAUL Loc: [facility] PACT FLAME 4D (Req'g Loc) Img Loc: CT IMAGING Service: [place] [address] (Case [id number] COMPLETE) CT (AP) ABDOMEN/PELVIS W/O CONTRA(CT Detailed) CPT:94135 Reason for Study: multiple subcutaneous nodules in [...] .CREAT EGFR(CKD-E 44 L Ref: >=60 Allergies: ([facility] only) PENICILLIN (May 15, 1994) SIMVASTATIN (Apr 01, 2006) LOBSTER (Jul 12, 2007) SCALLOPS (Jul 12, 2007) LISINOPRIL (Apr 03, 2008) METOPROLOL (Apr 03, 2008) FISH (Dec 04, 2009) CONTRAST MEDIA (Jul 06, 2022) ZOLPIDEM (Dec 20, 2023) TOPIRAMATE (January 03, 2024) Defer to radiologist for final CT protocol. User Placing Order: EDUARDO PAUL - Office My pager number on record is: [phone]. The pager number/cell phone number above is NOT correct and I have entered my correct number below: My correct contact # is:[phone] - TEAMS Trainees only: Enter your staff provider's info here: Per Joint Commission Standards, by signing this diagnostic imaging request the ordering provider confirms they have considered patients age and recent imaging history. 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 Date Oct 10, 2024 - - - - - - - - - - - - - - - - - - - - - - - - - - - - - - - - - - - - - - - - ROSS IGLESIAS STANDARD FORM 515 ID:[id number] SEX:M :1945 AGE: 78 LOC:8525 PCP: Eduardo Paul NP /johana/ LEE KAY MD STAFF PATHOLOGIST, PATHOLOGY & LABORATORY [facility] Signed: 10/10/2024 10:53 LEE KAY [facility] Encounter Notes: All associated encounter notes This section contains the clinical notes associated to the Encounter. Date/Time Encounter Note(s) Provider Source Oct 09, 2024 02:39 PM LETTERS: LOCAL TITLE: FOLLOW UP RESULTS LETTER STANDARD TITLE: LETTERS DATE OF NOTE: OCT 09, 2024@14:39 ENTRY DATE: OCT 09, 2024@14:39:07 AUTHOR: GOLDEN CUNHA COSIGNER: URGENCY: STATUS: COMPLETED SUBJECT: [facility] [place] [address] Sep ROSS IGLESIAS [id number] [facility] [id number] Dear : We are following up on your anticoagulant (blood thinner) medication, Rivaroxaban. We were alerted to a significant hemoglobin level as part of reviewing your complete blood count (CBC), which requires further follow-up. We were unsuccessful at reaching you by telephone after multiple attempts. Changes in your hemoglobin can be due to a variety of reasons, including a potential bleeding concern. Please get checked out by the emergency department if you ever notice any of the following signs of possible bleeding: black tarry stools pale skin new or worsening shortness of breath, lightheadedness, fatigue, or chest pain new or worsening bright red blood in your stool/urine vomit that looks like coffee grounds abrupt new back or abdominal pain stroke signs: one-sided weakness, vision/speech changes, facial droop, or severe headache ____ HGB 11.9 L BLOOD (10/05/24 06:36) 14.6 BLOOD (07/20/24 14:05) 15.0 BLOOD (05/08/24 09:15) ____ We need to recheck your hemoglobin, preferably within 1-2 weeks from the most recent lab. Please call our clinic at [phone], option 1 to get a lab appointment scheduled at [facility] nearest [facility] as soon as possible. As a reminder, taking non-steroidal anti-inflammatory drug (NSAID) pain medications such as ibuprofen, naproxen, or high-dose aspirin can significantly increase your bleeding risk. If you are using one of these medications, we recommend talking to your provider about safer alternative We hope you are doing well. Thank you for your service and we look forward to hearing from you SOON! Sincerely, [facility] Team Phone number: [phone] -option 1 to schedule or reschedule an appointment -option 2 to refill medications or call the phone number on the bottle -option 3 for all other communication Fax number: [phone] Clinic Hours: Wednesday-Wednesday, 8:00am to 4:00pm (excluding Federal holidays) GOLDEN CUNHA [facility] Clinical Director Of Community Center, Anticoag Clinic GOLDEN CUNHA [facility] Oct 09, 2024 02:29 PM PHARMACY OUTPATIEN T MEDICATION MGT NOTE: LOCAL TITLE: PHARMACY ANTICOAGULATION CLINIC F/U STANDARD TITLE: PHARMACY OUTPATIENT MEDICATION MGT NOTE DATE OF NOTE: OCT 09, 2024@14:29:49 ENTRY DATE: OCT 09, 2024@14:29:50 AUTHOR: GOLDEN CUNHA EXP COSIGNER: URGENCY: STATUS: COMPLETED DOAC DASHBOARD ALERT - Anticoagulant regimen: Rivaroxaban 20mg daily w/ largest meal (4pm) - 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 DVT (2019) - Relevant PMH: - recurrent non-melanoma skin cancers - syncope w/ LOC (falls risk), CAD - Prior major bleeds: none noted - Prior anticoagulants: o warfarin o SQ heparin s/p warfarin failure x1 year ([id number]) - Date started: 09/08/19 - Anticipated duration of therapy: indefinite - HAS-BLED extrapolated = 1-2 (age, +/-anemia) --> MODERATE RISK - Risk of recurrent VTE (Chest 2016): --> MODERATE RISK d/t recurrency provoked due to non-surgical transient risk factor: 15%/5 years unprovoked: 30% in 5 years (continue unless high bleed risk) SUBJECTIVE/OBJECTIVE: Obtained from chart review; unable to reach patient @[phone]. 10/06- having difficulty connecting to pt's phone x2 10/09- difficulty again- pt seems to answer and hang up right away dashboard flags: >2pt Hgb drop Labs ==== Age: 78 Height: 65 in [165.1 cm] (10/05/2024 07:41) Weight: 167.8 lb [76.11 kg] (10/05/2024 07:41) Collection DT Specimen Test Name Result Units Ref Range 10/05/2024 06:36 PLASMA CREATININE 1.5 H mg/dL 0.7 - 1.2 07/20/2024 14:05 PLASMA CREATININE 1.3 H mg/dL 0.7 - 1.2 05/31/2024 09:39 PLASMA CREATININE 1.6 H mg/dL 0.7 - 1.2 05/08/2024 09:15 PLASMA CREATININE 1.9 H mg/dL 0.7 - 1.2 04/06/2024 06:33 PLASMA CREATININE 1.4 H mg/dL 0.7 - 1.2 03/19/2024 11:42 PLASMA CREATININE 1.3 H mg/dL 0.7 - 1.2 10/11/2023 06:46 PLASMA CREATININE 1.2 mg/dL 0.7 - 1.2 04/08/2023 10:26 PLASMA CREATININE 1.3 H mg/dL 0.7 - 1.2 02/19/2023 11:19 PLASMA CREATININE 1.2 mg/dL 0.7 - 1.2 Cockcroft & Gault (Actual body weight) = 44 mL/min Collection DT Spec WBC HGB HCT PLT MCV NEUT LYMPHS 10/05/2024 06:36 BLOOD 4.5 11.9 L 38.3 L 120 L 93.4 07/20/2024 14:05 BLOOD 4.6 14.6 46.8 144 L 89.5 67.2 20.8 05/08/2024 09:15 BLOOD 5.4 15.0 46.8 135 L 92.1 03/19/2024 11:42 BLOOD 4.58 13.3 L 40.9 L 153 93.2 63.3 20.1 10/11/2023 06:46 BLOOD 5.19 14.8 46.3 159 94.7 ASSESSMENT/PLAN: - Concerns with Hgb decrease noted. Unable to review s/sx of bleeding. Unclear if pt not familiar with his phone or hanging up on purpose. - LTP - Additional labs ordered: Pt has no other appts in the next few weeks; has [facility] app[facility] 12[facility]11/24 [facility]. Will sched labs then if pt doesn't call to sched labs or talk to a pharmacist. - CC in 2-3 weeks; pt sched f/u CBC? - Consider change to Apixaban for pt >75 yo. - Risk/benefit/background updated as needed above. - Continue anticoagulation at current dose. - Monitor dashboard for labs, drug interactions, and compliance. - Dashboard flags reviewed/cleared. - Lab monitoring frequency defined by dashboard or as clinically indicated. - Rx renewal needed - no Time Spent:15min ANTICOAGULATION THERAPY DIRECT ORAL ANTICOAGULANT (DOAC) MANAGEMENT Medication monitoring, no dosage change required, continue to monitor and assess /johana/ GOLDEN CUNHA [facility] Clinical Director Of Community Center, [facility] Signed: 10/09/2024 14:39 GOLDEN CUNHA [facility]
--- OUTSIDE RECORDS SUMMARY | 2024-10-24 03:35 | XMS_ITS | Encounter Summary ---
Author Name [facility] [place] [facility] Address [address] [place] [address] Care Team Providers Care Radar Technician Name Role Phone YOSSI PAUL Primary Care [...] PART A Sep 30, 2010 PART A [id number] Isaac IGLESIAS PATIENT MEDICARE (WNR) MEDICARE (M) PART A Sep 30, 2010 PART A [id number] Isaac IGLESIAS PATIENT Selected Encounter This section includes the information on record at [place] for the Encounter. Date/Time Encounter Type Encounter Description Reason Pro vider Source Oct 24, 2024 08:35 AM Outpatient Encounter CLINICAL PHARMACY [facility] Encounter Template Text not used by [place] Plan of Treatment: Future Appointments (+ 6 months) and Future Tests (+/- 45 days) The Plan of Treatment section includes future care activities for the [facility] [place] [facility] This section includes future appointments and future orders which are active, pending or scheduled. Future Appointments This section includes appointments that were scheduled to occur 6 months from the date of the Encounter, up to a maximum of 20 appointments. The data comes from all [facility] facilities. Appointment Date/Time Appointment Type Appointme nt Facility Name Nov 10, 2024 09:00 AM AMBULATORY - NONE [facility] Nov 17, 2024 11:00 AM AMBULATORY - NONE [facility] Dec 11, 2024 08:30 AM AMBULATORY - REHAB MED[facility]IN [facility] January 16, 2025 08:20 AM AMBULATORY - SURGERY [facility] January 16, 2025 08:40 AM AMBULATORY - SURGERY [facility] January 17, 2025 08:00 [facility] Feb 13, 2025 02:00 PM AMBULATORY - PSYCHIATRY [facility] Apr 05, 2025 07:00 AM AMBULATORY - NONE [facility] Apr 05, 2025 08:00 AM AMBULATORY - MEDICINE [facility] Apr 13, 2025 08:30 AM AMBULATORY - PSYCHIATRY [facility] Apr 16, 2025 08:30 AM AMBULATORY - REHAB [facility] Lab Results: +/- 30 days of [...] Type Comment Oct 24, 2024 08:29 AM [facility] CBC BLOOD Specimen Type: BLOOD No comment entered. Ordering Provider: YULI PAUL Report Released Date/Time: Oct 10, 2024 02:35 PM Reporting Lab: [facility] [id number] Performing Lab: [facility] [phone] WBC 6.3 4.0-11.0 RBC 4.26 L 4.60-6.20 HGB 12.8 g/dL L 13.5-17.9 HCT 41.1 41.0-54.0 MCV 96.5 fL 80.0-100.0 MCH 30.0 pg 27.0-33.0 MCHC 31.1 g/dL L 32.0-37.5 PLT 179 150-400 MPV 9.5 fL 9.1-13.0 RDW 16.9 H 11.5-14.5 Oct 24, 2024 08:29 AM [facility] ELP/IMMFIX,SERUM PANEL SERUM Speci men Type: SERUM No comment entered. Ordering Provider: YOSSI PAUL Report Released Date/Time: Oct 10, 2024 02:35 PM Reporting Lab: [facility] [id number] Performing Lab: [facility] [address] PROTEIN,TOTAL 7.9 g/dL 6.4-8.3 .ALBUMIN FRACTION 4.36 g/dL 3.66-4.78 .ALPHA 1 FRACTION 0.32 g/dL 0.14-0.38 .ALPHA 2 FRACTION 0.75 g/dL 0.50-0.90 .BETA 1 FRACTION 0.51 g/dL 0.33-0.55 .BETA 2 FRACTION 0.48 g/dL 0.20-0.52 .GAMMA FRACTION 1.48 g/dL 0.58-1.72 .TOTAL PROTEIN 7.9 g/dL 6.0-8.3 .INTERPRETATION NO MONOCLONALS DETECTED Oct 05, 2024 06:36 AM [facility] TSH W/REFLEX TO FREE T4 PLASMA Spec imen Type: PLASMA No comment entered. Ordering Provider: YOSSI PAUL Report Released Date/Time: Apr 06, 2024 09:08 AM Reporting Lab: [facility] [phone] Performing Lab: [facility] [address] TSH 1.62 u[IU]/mL 0.35-4.94 Oct 05, 2024 06:36 AM [facility] BNP PLASMA Specimen Type : PLASMA No comment entered. Ordering Provider: YOSSI PAUL Report Released Date/Time: Apr 06, 2024 09:08 AM Reporting Lab: [facility] [phone] Performing Lab: [facility] [address] BNP 183 pg/mL H <99 Oct 05, 2024 06:36 AM [facility] COMPREHENSIVE METABOLIC PANEL+MG PLASMA Specimen Type: PLASMA No comment entered. Ordering Provider: YOSSI PAUL Report Released Date/Time: Apr 06, 2024 09:08 AM Reporting Lab: [facility] [phone] Performing Lab: [facility] [phone] CREATININE 1.5 mg/dL H 0.7-1.2 UREA NITROGEN [...] L >60 Oct 05, 2024 06:36 AM [facility] LIPID PANEL,NON-FASTING PLASMA Specimen Type: PLASMA No comment entered. Ordering Provider: YOSSI PAUL Report Released Date/Time: Apr 06, 2024 09:08 AM Reporting Lab: [facility] [phone] Performing Lab: [facility] [address] CHOLESTEROL 134 mg/dL <199 .HDL 69 mg/dL >40 LDL CALCULATION 53 mg/dL <99 VLDL CALCULATION 12 mg/dL <29 NON HDL CHOLESTEROL 65 mg/dL <129 TRIG(NON FASTING) 62 mg/dL <149 Oct 05, 2024 06:36 AM [facility] CBC BLOOD Specimen Type: BLOOD No comment entered. Ordering Provider: YOSSI PAUL Report Released Date/Time: Apr 06, 2024 09:08 AM Reporting Lab: [facility] [phone] Performing Lab: [facility] [phone] WBC 4.5 4.0-11.0 RBC 4.10 L 4.60-6.20 HGB 11.9 g/dL L 13.5-17.9 HCT 38.3 L 41.0-54.0 MCV 93.4 fL 80.0-100.0 MCH 29.0 pg 27.0-33.0 MCHC 31.1 g/dL L 32.0-37.5 PLT 120 L 150-400 MPV 9.7 fL 9.1-13.0 RDW 17.3 H 11.5-14.5 Oct 05, 2024 06:36 AM [facility] FOLATE PLASMA Specimen Type : PLASMA No comment entered. Ordering Provider: YOSSI PAUL Report Released Date/Time: Oct 05, 2024 08:40 AM Reporting Lab: [facility] [phone] Performing Lab: [facility] [address] FOLATE 7.7 ng/mL >7.0 Oct 05, 2024 06:36 AM [facility] B 12 SERUM Specimen Type : SERUM Comment: Specimen received is PLASMA. Ordering Provider: YOSSI PAUL Report Released Date/Time: Oct 05, 2024 08:40 AM Reporting Lab: [facility] [phone] Performing Lab: [facility] [address] B 12 648 pg/mL 213-816 Oct 05, 2024 06:36 AM [facility] IRON GROUP SERUM Specimen Type : SERUM Comment: Specimen received is PLASMA. Ordering Provider: YOSSI PAUL Report Released Date/Time: Oct 05, 2024 08:40 AM Reporting Lab: [facility] [phone] Performing Lab: [facility] [address] IRON 88 ug/dL 65-175 TIBC,CALCULATED 289 ug/dL 250-425 FERRITIN 600.3 ng/mL H 21.8-274.7 IRON SATURATION 30 20-50 TRANSFERRIN 231 mg/dL 163-382 Oct 05, 2024 06:36 AM [facility] FERRITIN PLASMA Specimen Type : PLASMA No comment entered. Ordering Provider: YOSSI PAUL Report Released Date/Time: Oct 05, 2024 08:40 AM Reporting Lab: [facility] [phone] Performing Lab: [facility] [phone] FERRITIN 600.3 ng/mL H 21.8-274.7 Oct 05, 2024 06:36 AM [facility] PERIPHERAL SMEAR PATHOLOGIST REVIEW BLOOD Specimen Type: BLOOD No comment entered. Ordering Provider: YOSSI PAUL Report Released Date/Time: Oct 05, 2024 08:40 AM Reporting Lab: [facility] [phone] Performing Lab: [facility] [phone] PERIPHERAL SMEAR PATHOLOGIST REVIEW SLIDES MADE Social [...] alexis Oct 05, 2024 08:00 AM VA-TOBACCO NEVER USED OTHER TYPE [facility] Tobacco Use History This section includes a history of the smoking, or tobacco-related health factors, that were collected on or before the date of the Encounter. The data comes from the [place] facility where the Encounter took place. Date/Time Smoking Status/Tobacco Use Comment F acility Oct 05, 2024 08:00 AM VA-TOBACCO USE FORMER CIGARETTES [facility] Oct 11, 2023 08:00 AM VA-TOBACCO FORMER USER [facility] Oct 11, 2023 08:00 AM VA-TOBACCO QUIT [...] this document. The data comes from all [facility]. Date Advance Directives Provider Source Dec 04, 2009 CLINICAL WARNING KAMARI CUMMINGS [facility] Radiology Reports: +/- 30 days [...] CT (AP) ABDOMEN/PE LVIS (P): ROSS IGLESIAS [id number] -1945 M Exm Date: OCT 24, 2024@07:17 Req Phys: STENSETH,CHRISTOPHER Pat Loc: [facility] PACT FLAME 4D (Req'g Loc) Img Loc: CT IMAGING Service: [place] [address] (Case [id number] COMPLETE) CT (AP) ABDOMEN/PELVIS W/O CONTRA(CT Detailed) CPT:25638 Reason for Study: multiple subcutaneous nodules in [...] .CREAT EGFR(CKD-E 44 L Ref: >=60 Allergies: ([place] only) PENICILLIN (May 15, 1994) SIMVASTATIN (Apr 01, 2006) LOBSTER (Jul 12, 2007) SCALLOPS (Jul 12, 2007) LISINOPRIL (Apr 03, 2008) METOPROLOL (Apr 03, 2008) FISH (Dec 04, 2009) CONTRAST MEDIA (Jul 06, 2022) ZOLPIDEM (Dec 20, 2023) TOPIRAMATE (January 03, 2024) Defer to radiologist for final CT protocol. User Placing Order: YOSSI PAUL - Office My pager number on record is: [phone]. The pager number/cell phone number above is NOT correct and I have entered my correct number below: My correct contact # is:[phone] - TEAMS Trainees only: Enter your staff provider's info here: Per Joint Commission Standards, by signing this diagnostic imaging request the ordering provider confirms they have considered patients age and recent imaging history. Report Status: Verified Date Reported: OCT 24, 2024 Date Verified: OCT 24, 2024 Enamel Buffer E-Sig:/ES/KAREN HANEY DO Report: CT abdomen and [...] Primary Interpreting Staff: KAREN HANEY DO, RADIOLOGIST (Enamel Buffer) /DDS KAREN HANEY [facility] Pathology Reports: +/- 30 days [...] COSIGNER: URGENCY: STATUS: COMPLETED $APHDR Reporting Lab: [facility] [CLIA# [id number]] [facility] [employer] [place] [address] - - - - - - - [...] - - POSTOPERATIVE DIAGNOSIS: Surgeon/physician: YOSSI PAUL FIGURE MODEL =-=-=-=-=-=-=-=-=-=-=-=-=-=-=-= -=-=-=-=-=-=-=-=-=-=-=-=-=-=-=- =-=-=-=-=-=-=-=-= - - - - [...] MD STAFF PATHOLOGIST, PATHOLOGY & LABORATORY [facility] Signed Oct 10, 2024@10:53 Performing Laboratory: Surgical Pathology Report Performed By: [facility] [CLIA# [id number]] [place] [address] $FTR - - - - - - - - - - - - - - - - - - - - - - - - - - - - - - - - - - - - - - - - (End of report) LEE KAY MD [facility] [place] Date Oct 10, 2024 - - - - - - - - - - - - - - - - - - - - - - - - - - - - - - - - - - - - - - - - IGLESIASROSS Mena STANDARD FORM 515 ID:[id number] SEX:M :1945 AGE: 78 LOC:[id number] PCP: Yossi Paul, JOSE CARLOS /johana/ LEE KAY MD STAFF PATHOLOGIST, PATHOLOGY & LABORATORY [facility] Signed: 10/10/2024 10:53 LEE KAY [facility] Encounter Notes: All associated encounter notes This section contains the clinical notes associated to the Encounter. Date/Time Encounter Note(s) Provider Source Oct 24, 2024 08:35 AM REPORT OF CONTACT: LOCAL TITLE: PATIENT CONTACT NOTE - PHARMACY STANDARD TITLE: REPORT OF CONTACT DATE OF NOTE: OCT 24, 2024@08:35 ENTRY DATE: OCT 24, 2024@08:35:22 AUTHOR: SONAM DE PAZ COSIGNER: URGENCY: STATUS: COMPLETED PATIENT CONTACT NOTE - PHARMACY Has ADDENDA Patient Contact Date & Time of Contact: Sep@08:35 Type of Contact: In person Reason for Contact: Other: Mr. Iglesias presented to outpatient pharmacy to ask about his latanoprost eye drops as they are causing burning in his eyes. There is a preservative free formulation available, however it would take some doing in getting it added to our drug file. He is looking for guidance on how to proceed with his treatment. Please reach out to him at [phone] to discuss options/set up appointment to review. I am not sure if it is the preservative that is causing the burning (but suspected). He was willing to try just one bottle again to see if the last fill was a bad product. I processed a refill for one bottle 10/24/24 and if burning is still happening, I told him to make an appointment with you to discuss. /johana/ SONAM DE PAZ PHARMACIST Signed: 10/24/2024 08:41 Receipt Acknowledged By: 10/24/2024 15:13 /johana/ PAVITHRA GREENE MD STAFF [employer] OPERATOR 10/24/2024 ADDENDUM STATUS: COMPLETED Please remove this chart note as it was entered under the wrong patient. /david DE PAZ PHARMACIST Signed: 10/24/2024 15:05 SONAM DE PAZ [facility]
--- OUTSIDE RECORDS SUMMARY | 2024-12-11 03:30 | XMS_ITS | Encounter Summary ---
Author Name [facility] [place] [facility] [place] Address [address] [place] [address] Care Team Providers Care Chief Quality Officer Name Role Phone EDUARDO PRATT Primary Care [...] PART A Sep 30, 2010 PART A [id number] [phone] Isaac IGLESIAS PATIENT MEDICARE (WNR) MEDICARE (M) PART A Sep 30, 2010 PART A [id number] [phone] Isaac IGLESIAS PATIENT Selected Encounter This section includes the information on record at [place] for the Encounter. Date/Time Encounter Type Encounter Description Reason Provider Source Dec 11, 2024 08:30 AM OFFICE O/P EST HI 40 MIN NEUROLOGY ICD-10-CM G20.C Parkinsonism, unspecified ALHAJI ARAMBULA Encounter Template Text not used by [place] Assessments - Encounter Diagnoses This section includes the primary and secondary diagnoses documented for the Encounter. Date/Time Primary/Secondary Diagnosis Diagnosis Name Provider Source Dec 13, 2024 11:03 AM PRIMARY Parkinsonism, unspecified ALHAJI ARAMBULA [facility] Dec 13, 2024 11:03 AM SECONDARY Clonic hemifacial spasm, right ALHAJI ARAMBULA [facility] Dec 13, 2024 11:03 AM SECONDARY Contact with and exposure to other hazardous substances ALHAJI ARAMBULA [facility] Dec 13, 2024 11:03 AM SECONDARY Polyneuropathy, unspecified ALHAJI ARAMBULA [facility] Dec 13, 2024 11:03 AM SECONDARY Tremor, unspecified ALHAJI ARAMBULA [facility] Plan of Treatment: Future Appointments (+ 6 months) and Future Tests (+/- 45 days) The Plan of Treatment section includes future care activities for the patient from [facility] [place] [facility] This section includes future appointments and future orders which are active, pending or scheduled. Future Appointments This section includes appointments that were scheduled to occur 6 months from the date of the Encounter, up to a maximum of 20 appointments. The data comes from all [facility]. Appointment Date/Time Appointment Type Appointme nt Facility Name January 16, 2025 08:20 AM AMBULATORY - SURGERY [facility] January 16, 2025 08:40 AM AMBULATORY - SURGERY [facility] January 17, 2025 08:00 AM AMBULATORY - REHAB [facility] Feb 13, 2025 02:00 PM AMBULATORY - PSYCHIATRY [facility] Apr 05, 2025 07:00 AM AMBULATORY - NONE [facility] Apr 05, 2025 08:00 AM AMBULATORY - MEDICINE [facility] Apr 13, 2025 08:30 AM AMBULATORY - PSYCHIATRY [facility] Apr 16, 2025 08:30 AM AMBULATORY - REHAB [facility] May 16, 2025 08:15 AM AMBULATORY - NONE [facility] Vital Signs: All taken on the encounter date This section contains inpatient and outpatient Vital Signs collected on the date of the Encounter. Date/Time Temperature Pulse Blood Pressure Respiratory Rate SP02 Pain Height Weight Body Mass Index Source Dec 11, 2024 08:18 AM 154/[address] [facility] Dec 11, 2024 08:18 AM 98 78 154/74 18 91 0 [facility] Social History: Smoking Status (Most current) [...] Current Smoking Status Comment Facil ity Oct 05, 2024 08:00 AM VA-TOBACCO USE FORMER CIGARETTES [facility] Tobacco Use History This section includes a history of the smoking, or tobacco-related health factors, that were collected on or before the date of the Encounter. The data comes from the [place] facility where the Encounter took place. Date/Time Smoking Status/Tobacco Use Comment F acility Oct 05, 2024 08:00 AM VA-TOBACCO USE FORMER CIGARETTES [facility] Oct 11, 2023 08:00 AM VA-TOBACCO FORMER USER [facility] Oct 11, 2023 08:00 AM VA-TOBACCO QUIT 15 YRS OR MORE [facility] Aug 17, 2022 09:15 AM VA-TOBACCO FORMER USER [facility] Aug 17, 2022 09:15 AM VA-TOBACCO QUIT 15 YRS OR MORE [facility] Oct 27, 2021 09:00 AM VA-TOBACCO FORMER USER [facility] Oct 27, 2021 09:00 AM VA-TOBACCO QUIT 15 YRS OR MORE [facility] Sep 19, 2020 09:00 AM VA-TOBACCO FORMER USER [facility] Sep 19, 2020 09:00 AM VA-TOBACCO QUIT 15 YRS OR MORE [facility] Dec 20, 2018 10:09 AM VA-TOBACCO FORMER USER [facility] Dec 20, 2018 10:09 AM VA-TOBACCO QUIT 15 YRS OR MORE [facility] Dec 07, 2017 09:12 AM FORMER TOBACCO USER 7Y OR GREATE R [facility] Apr 21, 2017 08:35 AM FORMER TOBACCO USER 7Y OR GREATE R [facility] Apr 28, 2016 08:20 AM FORMER TOBACCO USER 7Y OR GREATE R [facility] January 22, 2015 10:07 AM FORMER TOBACCO USER 7Y OR GREATE R [facility] January 25, 2014 10:11 AM FORMER TOBACCO USER 7Y OR GREATE R [facility] December 30, 2011 08:00 AM FORMER TOBACCO USER 7Y OR GREATE R [facility] January 21, 2011 01:16 PM FORMER TOBACCO USE >1Y <7Y [facility] Nov 27, 2009 08:09 AM FORMER TOBACCO USE >1Y <7Y [facility] Dec 27, 2008 12:32 AM FORMER TOBACCO USE >1Y <7Y [facility] January 03, 2008 12:52 PM FORMER TOBACCO USE >1Y <7Y [facility] January 11, 2007 10:43 AM FORMER TOBACCO USE >1Y <7Y [facility] Advance Directives: All historical and current Section Date Range: From patient's date of to the date document was created. This section includes ALL of a patient's completed or amended [place] Advance and Rescinded Directives. The entries below indicate that a directive exists for the patient, but an actual copy is not included with this document. The data comes from all [place] facilities. Date Advance Directives Provider Source Dec 04, 2009 [facility] Encounter Notes: All associated encounter notes This section contains the clinical notes associated to the Encounter. Date/Time Encounter Note(s) Provider Source Dec 11, 2024 08:41 AM NEUROLOGY ATTENDING NOTE: LOCAL TITLE: NEUROLOGY CLINIC NOTE STANDARD TITLE: NEUROLOGY ATTENDING NOTE DATE OF NOTE: DEC 11, 2024@08:41 ENTRY DATE: DEC 10, 2024@17:47:49 AUTHOR: ALHAJI ARAMBULA COSIGNER: URGENCY: STATUS: COMPLETED SUBJECT: Movement Disorders [facility] Toxin Clinic Note Movement Disorders [facility]um Toxin Clinic Note Last Visit: 08/24/[address] Ring, 04/10/[address] 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 History of Present Illness: Mr. Iglesias reports good responst to last botox injections with Dr. Ring. He has not yet had any clear wearing off. His tremors vary day to day. He still has severe painful neuropathy. Arms and legs. Takes gabapentin 600mg po bid Current Medications: Active Outpatient Medications (including Supplies): [...] MINUTES APART FROM OTHER EYE DROPS 4) BUSPIRONE HCL 5MG TAB TAKE ONE TABLET BY MOUTH TWICE A DAY ACTIVE (S) Indication: FOR MOOD 5) CALCIUM CARBONATE 650MG (CA 260MG) TAB TAKE ONE TABLET BY ACTIVE (S) MOUTH EVERY DAY 6) CARBOXYMETHYLCELLULOSE NA 0.25% OPH SOLN INSTILL 2 DROPS IN ACTIVE OPERATIVE EYE EVERY 2 HOURS NEEDED Indication: FOR DRY EYES 7) CHOLECALCIF 25MCG (D3-1,000UNIT) TAB TAKE ONE TABLET BY ACTIVE MOUTH EVERY DAY 8) CYANOCOBALAMIN 500MCG TAB TAKE ONE TABLET BY MOUTH EVERY DAY ACTIVE Indication: FOR B12 SUPPLEMENT 9) DICLOFENAC NA 1% TOP GEL APPLY 2 GRAMS TOPICALLY THREE TIMES ACTIVE A DAY NEEDED Indication: FOOT PAIN 10) FLUTICAS 500/SALMETEROL 50 INHL DISK 60 INHALE 1 PUFF BY ACTIVE (S) INHALATION TWICE A DAY *RINSE MOUTH AFTER EACH USE* Indication: FOR COPD 11) FLUTICASONE PROP 50MCG 120D NASAL INHL SPRAY 2 SPRAYS IN ACTIVE (S) EACH NOSTRIL EVERY DAY Indication: FOR CONGESTION 12) GABAPENTIN 600MG TAB TAKE ONE TABLET BY MOUTH TWICE A DAY ACTIVE Indication: FOR PAIN AND NUMBNESS 13) GUAIFENESIN 200MG TAB TAKE ONE TABLET BY MOUTH THREE TIMES A ACTIVE DAY NEEDED FOR PHLEM Indication: FOR PHLEM 14) LIDOCAINE 5% OINT APPLY MODERATE AMOUNT TOPICALLY THREE ACTIVE TIMES A DAY NEEDED Indication: FOR PAIN 15) LIDOCAINE 5% PATCH APPLY 1 PATCH TOPICALLY EVERY DAY ACTIVE NEEDED Indication: FOR UP TO 12 HOURS FOR PAIN 16) POTASSIUM CL 20MEQ SA TAB (DISPERSIBLE) TAKE ONE TABLET BY ACTIVE MOUTH EVERY DAY Indication: FOR POTASSIUM SUPPLEMENT 17) RIVAROXABAN 20MG TAB TAKE ONE TABLET BY MOUTH EVERY DAY WITH ACTIVE (S) THE LARGEST MEAL OF THE DAY TO TREAT AND/OR PREVENT BLOOD CLOTS 18) SERTRALINE HCL 100MG TAB TAKE TWO TABLETS BY MOUTH EVERY DAY ACTIVE Indication: FOR DEPRESSION & PTSD 19) TELMISARTAN 20MG TAB TAKE ONE TABLET BY MOUTH EVERY DAY ACTIVE (S) Indication: FOR BLOOD PRESSURE 20) TIOTROPIUM 2.5MCG/ACTUAT 60D ORAL INHL INHALE TWO PUFFS BY ACTIVE INHALATION EVERY DAY Indication: FOR COPD 21) TORSEMIDE 20MG TAB TAKE ONE TABLET BY MOUTH EVERY DAY ACTIVE (S) Indication: FOR EXCESS FLUID 22) VANICREAM TOP CREAM APPLY THIN LAYER TOPICALLY DIRECTED ACTIVE Indication: FOR DRY SKIN ALLERGIES: PENICILLIN (May 15, 1994) SIMVASTATIN (Apr 01, 2006) LOBSTER (Jul 12, 2007) SCALLOPS (Jul 12, 2007) LISINOPRIL (Apr 03, 2008) METOPROLOL (Apr 03, 2008) FISH (Dec 04, 2009) CONTRAST MEDIA (Jul 06, 2022) ZOLPIDEM (Dec 20, 2023) TOPIRAMATE (January 03, 2024) Physical Examination: Vital Signs: Blood Pressure: 154/76 (12/11/2024 08:18) Pulse: 78 (12/11/2024 08:18) Respiration: 16 (12/11/2024 08:18) Temperature: 98 F [36.7 C] (12/11/2024 08:18) Weight: 170 lb [77.11 kg] (12/11/2024 08:18) Height: 65 in [165.1 cm] (10/05/2024 07:41) BMI: 28.3 Pain: 0 (12/11/2024 08:18) Neurological exam: Alert and fully oriented with fluent speech and no dysarthria. Able to provide a detailed medical history. Well-nourished in no acute distress.Alert and oriented with fluent speech and no dysarthria, and able to provide an interval medical history.EOMI, face symmetric with equal activation. Rare right orbicularis oculi twitch No rest tremor. Bilateral mild postural and kinetic tremors. Procedure: Botulinum toxin injection for treatment of [...] units 3. Right orbicularis oculi, inferior lateral, 3 units Total units injected: 13 Unavoidable waste: 87 Total units billed: 100 The patient tolerated the injections without difficulty. Toxin Used: OnabotulinumtoxinA Lot#:[id number] Expiration Date: 12/2026 LABS: Nov 05, 2023@10:21 Test name Result units Ref. range Site Code HEMOGLOBIN A1C 5.5 % 4.0 - 6.0 [618] Oct 24, 2024@08:29 Test name Result units Ref. range Site Code .INTERPRETATION NO MONOCLONALS DETECTED [618] .ALBUMIN FRACTION 4.36 g/dL 3.66 - 4.78 [618] .ALPHA 1 FRACTION 0.32 g/dL 0.14 - 0.38 [618] .ALPHA 2 FRACTION 0.75 g/dL 0.50 - 0.90 [618] .BETA 1 FRACTION 0.51 g/dL 0.33 - 0.55 [618] .BETA 2 FRACTION 0.48 g/dL 0.20 - 0.52 [618] .GAMMA FRACTION 1.48 g/dL 0.58 - 1.72 [618] .TOTAL PROTEIN 7.9 g/dL 6.0 - 8.3 [618] Specimen Collection Date: Oct 05, 2024@06:36 Test name Result units Ref. range Site Code .CREAT EGFR(CKD-EPI) 47 L Ref: >=60 [618] TSH 1.62 uIU/mL 0.35 - 4.94 [618] [...] GLUCOSE 99 mg/dL 70 - 100 [618] UREA NITROGEN 36 H mg/dL 8 - [...] see a negative bias on ALT levels Specimen Collection Date: Oct 05, 2024@06:36 Test name Result units Ref. range Site Code B 12 648 pg/mL 213 - 816 [618] Specimen Collection Date: Jul 20, 2024@14:05 Test name Result units Ref. 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 Right upper hemifacial spasm - Today we did botulinum toxin injections for treatment of right partial hemifacial spasm. WIll plan on scheduling follow-up injections in 4 months rather than 3 months since he did not yet have significant wearing off this time. 2. Essential Tremor - Continue gabapentin 3. Painful peripheral neuropathy, progressive - Will order EMG-NCS since he has not had one since 2005. Partial benefit from gabapentin, could consider increase. An SNRI instead of SSRI could be considered, but this is prescribed by his mental health so will defer this option mental health. SPEP, TSH, B12, HgA1c have all been normal. Follow-up in 4 months to consider repeat injections. 52 minutes was spent on the date of service reviewing records, evaluating the Regan [id number], coordinating care, and documenting the encounter. /johana/ ALHAJI ARAMBULA Physician Signed: 12/13/2024 13:53 ALHAJI ARAMBULA [facility] Dec 11, 2024 08:20 AM NEUROLOGY NURSING OUTPATIENT NOTE: LOCAL TITLE: NEUROLOGY CLINIC NURSING NOTE STANDARD TITLE: NEUROLOGY NURSING OUTPATIENT NOTE DATE OF NOTE: DEC 11, 2024@08:20 ENTRY DATE: DEC 11, 2024@08:20:20 AUTHOR: MERYL VILLAFUERTE EXP COSIGNER: URGENCY: STATUS: COMPLETED Type of visit: Appointment Check In Reason for Visit: RTC Vital Signs: Blood Pressure: 154/76 (12/11/2024 08:18) Pulse: 78 (12/11/2024 08:18) Respiration: 16 (12/11/2024 08:18) Temperature: 98 F [36.7 C] (12/11/2024 08:18) Weight: 170 lb [77.11 kg] (12/11/2024 08:18) Height: 65 in [165.1 cm] (10/05/2024 07:41) BMI: 28.3 Pain: 0 (12/11/2024 08:18) Allergies: PENICILLIN (May 15, 1994) SIMVASTATIN (Apr [...] MINUTES APART FROM OTHER EYE DROPS 4) BUSPIRONE HCL 5MG TAB TAKE ONE TABLET BY MOUTH TWICE A DAY ACTIVE (S) Indication: FOR MOOD 5) CALCIUM CARBONATE 650MG (CA 260MG) TAB TAKE ONE TABLET BY ACTIVE (S) MOUTH EVERY DAY 6) CARBOXYMETHYLCELLULOSE NA 0.25% OPH SOLN INSTILL 2 DROPS IN ACTIVE OPERATIVE EYE EVERY 2 HOURS NEEDED Indication: FOR DRY EYES 7) CHOLECALCIF 25MCG (D3-1,000UNIT) TAB TAKE ONE TABLET BY ACTIVE MOUTH EVERY DAY 8) CYANOCOBALAMIN 500MCG TAB TAKE ONE TABLET BY MOUTH EVERY DAY ACTIVE Indication: FOR B12 SUPPLEMENT 9) DICLOFENAC NA 1% TOP GEL APPLY 2 GRAMS TOPICALLY THREE TIMES ACTIVE A DAY NEEDED Indication: FOOT PAIN 10) FLUTICAS 500/SALMETEROL 50 INHL DISK 60 INHALE 1 PUFF BY ACTIVE (S) INHALATION TWICE A DAY *RINSE MOUTH AFTER EACH USE* Indication: FOR COPD 11) FLUTICASONE PROP 50MCG 120D NASAL INHL SPRAY 2 SPRAYS IN ACTIVE (S) EACH NOSTRIL EVERY DAY Indication: FOR CONGESTION 12) GABAPENTIN 600MG TAB TAKE ONE TABLET BY MOUTH TWICE A DAY ACTIVE Indication: FOR PAIN AND NUMBNESS 13) GUAIFENESIN 200MG TAB TAKE ONE TABLET BY MOUTH THREE TIMES A ACTIVE DAY NEEDED FOR PHLEM Indication: FOR PHLEM 14) LIDOCAINE 5% OINT APPLY MODERATE AMOUNT TOPICALLY THREE ACTIVE TIMES A DAY NEEDED Indication: FOR PAIN 15) LIDOCAINE 5% PATCH APPLY 1 PATCH TOPICALLY EVERY DAY ACTIVE NEEDED Indication: FOR UP TO 12 HOURS FOR PAIN 16) POTASSIUM CL 20MEQ SA TAB (DISPERSIBLE) TAKE ONE TABLET BY ACTIVE MOUTH EVERY DAY Indication: FOR POTASSIUM SUPPLEMENT 17) RIVAROXABAN 20MG TAB TAKE ONE TABLET BY MOUTH EVERY DAY WITH ACTIVE (S) THE LARGEST MEAL OF THE DAY TO TREAT AND/OR PREVENT BLOOD CLOTS 18) SERTRALINE HCL 100MG TAB TAKE TWO TABLETS BY MOUTH EVERY DAY ACTIVE Indication: FOR DEPRESSION & PTSD 19) TELMISARTAN 20MG TAB TAKE ONE TABLET BY MOUTH EVERY DAY ACTIVE (S) Indication: FOR BLOOD PRESSURE 20) TIOTROPIUM 2.5MCG/ACTUAT 60D ORAL INHL INHALE TWO PUFFS BY ACTIVE INHALATION EVERY DAY Indication: FOR COPD 21) TORSEMIDE 20MG TAB TAKE ONE TABLET BY MOUTH EVERY DAY ACTIVE (S) Indication: FOR EXCESS FLUID 22) VANICREAM TOP CREAM APPLY THIN LAYER TOPICALLY [...] changes documented on printed medication list. /johana/ MERYL VILLAFUERTE LPN LPN Signed: 12/11/2024 08:21 MERYL VILLAFUERTE [facility]
--- OUTSIDE RECORDS SUMMARY | 2025-01-16 03:40 | XMS_ITS | Encounter Summary ---
Author Name [facility] [facility] [place] Address [address] [place] [address] Care Team Providers Care Software Manager Name Role Phone EDUARDO PRATT Primary Care [...] PART A Sep 30, 2010 PART A [id number] Isaac IGLESIAS PATIENT MEDICARE (WNR) MEDICARE (M) PART A Sep 30, 2010 PART A [id number] [phone] Isaac IGLESIAS PATIENT Selected Encounter This section includes the information on record at [place] for the Encounter. Date/Time Encounter Type Encounter Description Reason Provider Source January 16, 2025 08:40 AM OFFICE O/P EST MOD 30 MIN OPHTHALMOLOGY ICD-10-CM H40.1132 Primary open-angle glaucoma, bilateral, moderate stage PAVITHRA GREENE Encounter Template Text not used by [place] Assessments - Encounter Diagnoses This section includes the primary and secondary diagnoses documented for the Encounter. Date/Time Primary/Secondary Diagnosis Diagnosis Name Provider Source January 16, 2025 10:02 AM PRIMARY Primary open-angle glaucoma, bilateral, moderate stage [facility] January 16, 2025 10:02 AM SECONDARY Dermatochalasis of left upper eyelid [facility] January 16, 2025 10:02 AM SECONDARY Dermatochalasis of right upper eyelid J[facility] January 16, 2025 10:02 AM SECONDARY Myopia, bilateral J[facility] January 16, 2025 10:02 AM SECONDARY Presbyopia JC,[facility] January 16, 2025 10:02 AM SECONDARY Presence of intraocular lens J[facility] January 16, 2025 10:02 AM SECONDARY Puckering of macula, bilateral J[facility] January 16, 2025 10:02 AM SECONDARY Unspecified astigmatism, bilateral [facility] Plan of Treatment: Future Appointments (+ 6 months) and Future Tests (+/- 45 days) The Plan of Treatment section includes future care activities for the [facility] [place] [facility] This section includes future appointments and future orders which are active, pending or scheduled. Future Appointments This section includes appointments that were scheduled to occur 6 months from the date of the Encounter, up to a maximum of 20 appointments. The data comes from all [place] treatment facilities. Appointment Date/Time Appointment Type Appointme nt Facility Name January 17, 2025 08:00 AM AMBULATORY - REHAB MEDICIN E [facility] Feb 13, 2025 02:00 PM AMBULATORY - PS[facility]CHIATRY [facility] Apr 05, 2025 07:00 AM AMBULATORY - NONE [facility] Apr 05, 2025 08:00 AM AM[facility]ULAT[facility]ICINE [facility] Apr 13, 2025 08:30 AM AMBULATORY - PS[facility]CHIATRY [facility] Apr 16, 2025 08:30 AM AMBULATORY - REHAB MEDICIN [facility] May 16, 2025 08:15 AM AMBULATORY - NONE [facility] Jul 13, 2025 08:30 AM AMBULATORY - PS[facility]CHIATRY [facility] Jul 19, 2025 10:30 AM AMBULATORY - REHAB MEDICIN [facility] Jul 19, 2025 11:20 AM AMBULATORY - MEDICINE [facility] Jul 19, 2025 01:30 PM AMBULATORY - MEDICINE [facility] Social History: Smoking Status (Most current) and Tobacco Use (All prior to encounter date) This section includes the most current, and the historical, smoking and tobacco- related health factors from the [place] facility where the Encounter took place. Current Smoking Status This section includes the most current smoking, or tobacco-related health factor, from the [place] facility where the Encounter took place. Date/Time Current Smoking Status Comment Facil ity Oct 05, 2024 08:00 AM VA-TOBACCO NEVER USED OTHER TYPE [facility] Tobacco Use History This section includes a history of the smoking, or tobacco-related health factors, that were collected on or before the date of the Encounter. The data comes from the [place] facility where the Encounter took place. Date/Time Smoking Status/Tobacco Use Comment F acility Oct 05, 2024 08:00 AM VA-TOBACCO USE FORMER CIGARETTES [facility] Oct 11, 2023 08:00 AM VA-TOBACCO FORMER USER [facility] Oct 11, 2023 08:00 AM VA-TOBACCO QUIT 15 YRS OR MORE [facility] Aug 17, 2022 09:15 AM VA-TOBACCO FORMER USER [facility] Aug 17, 2022 09:15 AM VA-TOBACCO QUIT 15 YRS OR MORE [facility] Oct 27, 2021 09:00 AM VA-TOBACCO FORMER USER [facility] Oct 27, 2021 09:00 AM VA-TOBACCO QUIT 15 YRS OR MORE [facility] Sep 19, 2020 09:00 AM VA-TOBACCO FORMER USER [facility] Sep 19, 2020 09:00 AM VA-TOBACCO QUIT 15 YRS OR MORE [facility] Dec 20, 2018 10:09 AM VA-TOBACCO FORMER USER [facility] Dec 20, 2018 10:09 AM VA-TOBACCO QUIT 15 YRS OR MORE [facility] Dec 07, 2017 09:12 AM FORMER TOBACCO USER 7Y OR GREATE R [facility] Apr 21, 2017 08:35 AM FORMER TOBACCO USER 7Y OR GREATE R [facility] Apr 28, 2016 08:20 AM FORMER TOBACCO USER 7Y OR GREATE R [facility] January 22, 2015 10:07 AM FORMER TOBACCO USER 7Y OR GREATE R [facility] January 25, 2014 10:11 AM FORMER TOBACCO USER 7Y OR GREATE R [facility] December 30, 2011 08:00 AM FORMER TOBACCO USER 7Y OR GREATE R [facility] January 21, 2011 01:16 PM FORMER TOBACCO USE >1Y <7Y [facility] Nov 27, 2009 08:09 AM FORMER TOBACCO USE >1Y <7Y [facility] Dec 27, 2008 12:32 AM FORMER TOBACCO USE >1Y <7Y [facility] January 03, 2008 12:52 PM FORMER TOBACCO USE >1Y <7Y [facility] January 11, 2007 10:43 AM FORMER TOBACCO USE >1Y <7Y [facility] Advance Directives: All historical and current Section Date Range: From patient's date of to the date document was created. This section includes ALL of a patient's completed or amended [place] Advance and Rescinded Directives. The entries below indicate that a directive exists for the patient, but an actual copy is not included with this document. The data comes from all [place] facilities. Date Advance Directives Provider Source Dec 04, 2009 CLINICAL WARNING [facility]I [facility] Encounter Notes: All associated encounter notes This section contains the clinical notes associated to the Encounter. Date/Time Encounter Note(s) Provider Source January 16, 2025 09:30 AM OPHTHALMOLOGY ATTE NDING NOTE: LOCAL TITLE: OPHTHALMOLOGY CLINIC NOTE STANDARD TITLE: OPHTHALMOLOGY ATTENDING NOTE DATE OF NOTE: JANUARY 16, 2025@09:30 ENTRY DATE: JANUARY 16, 2025@09:30:50 AUTHOR: JOEL DE PAZ EXP COSIGNER: URGENCY: STATUS: COMPLETED Requested test(s) done, OCT of rNFL OU imaging order not available for use results uploaded to websphere process server developer for review. /johana/ SINGH GARLAND CRA Tape Deck Installer Signed: 01/16/2025 09:31 JOEL DE PAZ [facility] January 16, 2025 09:26 AM OPHTHALMOLOGY ATTE NDING NOTE: LOCAL TITLE: OPHTHALMOLOGY CLINIC NOTE STANDARD TITLE: OPHTHALMOLOGY ATTENDING NOTE DATE OF NOTE: JANUARY 16, 2025@09:26 ENTRY DATE: JANUARY 16, 2025@09:26:39 AUTHOR: PAVITHRA GREENE EXP COSIGNER: URGENCY: STATUS: COMPLETED Tech note for today: LOCAL TITLE: STEAM SHOVELMAN NOTE STANDARD TITLE: STEAM SHOVELMAN NOTE DATE OF NOTE: JANUARY 16, 2025@08:48 ENTRY DATE: JANUARY 16, 2025@08:48:36 AUTHOR: MIGUEL ANGEL MAN EXP COSIGNER: URGENCY: STATUS: COMPLETED Eye Start Exam Patient: ROSS IGLESIAS Sex: MALE SSN: [id number] Birthdate: [birth year] CC/HPI: Glaucoma follow up, VTD with VF testing. Denies vision changes, eye pain, discomfort, new flashes or floaters OU. Taking Brimonidine BID OU, last dose @ 5AM. Active Problems List: Active problems - Computerized Problem List is the source for the followin. Osteoarthritis (SNOMED CT 630935415) 2. Depression (SNOMED CT 47745237) 3. Posttraumatic stress disorder (SNOMED CT 93518598) 4. 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 Malignant tumor of [...] Tremor 23. Exposure to potentially hazardous substance ([facility] [id number]) - Entered through [facility] Documentation Initiative 24. 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 Chronic respiratory failure 27. Heart failure with normal ejection fraction 28. Pulmonary fibrosis 29. Chronic hypoxemic respiratory failure 30. Pulmonary emphysema - Group III Surgeries: JUL 06, 2022 Proc: Bilateral Direct Eyebrow Pexy, Upper Blepharoplasty, Levator Plication, lateral Canthopexy OCT 30, 2015 Proc: ce/iol left eye Follow Up Exam Allergies: PENICILLIN (May 15, 1994) SIMVASTATIN (Apr 01, 2006) LOBSTER (Jul 12, 2007) SCALLOPS (Jul 12, 2007) LISINOPRIL (Apr 03, 2008) METOPROLOL (Apr 03, 2008) FISH (Dec 04, 2009) CONTRAST MEDIA (Jul 06, 2022) ZOLPIDEM (Dec 20, 2023) TOPIRAMATE (January 03, 2024) Last refraction: Vision: CC(with glasses) OD:-1.75 +2.50 X028 20/60-2 0S:-0.50 +1.50 X165 20/40-1 MR from 07/14/24 OD:-1.75 +2.25 X030 20/40 today OS:-0.75 +1.50 X160 20/40+2 today Add: +2.50 Applanation 06/08 iCare 04/05 dilation @ 9:08AM end of tech note I have reviewed and agree with the biodiesel process control technician note of today Patient is alert [...] or heme ou IOP history (iCare) ----- 12/2024 Brimonidine 06/2024 Brimonidine 01/2022 Brimonidine 07/2021 Brimonidine 02/2021 Cosopt/Brimonidine 07/2020 Cosopt/Brimonidine 04/2019 Cosopt/Brimonidine 10/2018 Cosopt/Brimonidine 06/2018 Cosopt/Brimonidine 02/2018 Cosopt/Brimonidine ----- Assessment and Plan: #1: Glaucoma- Primary open angle glaucoma- moderate stage OU -diagnosed: 10/04/2013 high IOP in 2016 OS following retina surgery. Latanoprost stopped and [...] to macular edema OS * OCT RNFL 01/16/25 ou:wnl and stable since 2011 * HVF 01/16/25 od:high false + nonspecific defects os:a few nonspecific defects * IOP good on just Brimonidine, continue * f/u 1 y #2: Recurrent ERM OS s/p PPV/gas/MP (05/08/2016, 05/11/2016, Mar[place]) mac 07/14/24 od:mild erm, fovea ok os:resdual folds #3: hx Pseudophakia OU- subluxation OD lens - s/p repositioned at [place] still followed by [place] [facility] in [facility] #4: Refractive error/myopia astig presbyope: - and svn #5: hx Dermatochalasia and blepharoptosis - s/p bulb f/u 1 y, mr, mr, vtd, rnfl, mac sooner with changes Total time spent on spent on testing/chart review, exam, discussion, and charting was in excess of 30 minutes. /es/ PAVITHRA GREENE MD STAFF CHANNELER OUTSOLE Signed: 01/16/2025 10:03 PAVITHRA GREENE [facility] January 16, 2025 08:48 AM OPHTHALMOLOGY TECH NICIAN NOTE: LOCAL TITLE: STEAM SHOVELMAN NOTE STANDARD TITLE: STEAM SHOVELMAN NOTE DATE OF NOTE: JANUARY 16, 2025@08:48 ENTRY DATE: JANUARY 16, 2025@08:48:36 AUTHOR: MIGUEL ANGEL MAN COSIGNER: URGENCY: STATUS: COMPLETED Eye Start Exam Patient: ROSS IGLESIAS Sex: MALE SSN: [id number] Birthdate: [birth year] CC/HPI: Glaucoma follow up, VTD with VF testing. Denies vision changes, eye pain, discomfort, new flashes or floaters OU. Taking Brimonidine BID OU, last dose @ 5AM. Active Problems List: Active problems - Computerized Problem List is the source for the followin. Osteoarthritis (SNOMED CT 393393524) 2. Depression (SNOMED CT 58387712) 3. Posttraumatic stress disorder (SNOMED CT 53167558) 4. 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 Malignant tumor of [...] Tremor 23. Exposure to potentially hazardous substance ([facility] [id number]) - Entered through [facility]/[address] Documentation Initiative 24. 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 Chronic respiratory failure 27. Heart failure with normal ejection fraction 28. Pulmonary fibrosis 29. Chronic hypoxemic respiratory failure 30. Pulmonary emphysema - Group III Surgeries: JUL 06, 2022 Proc: Bilateral Direct Eyebrow Pexy, Upper Blepharoplasty, Levator Plication, lateral Canthopexy OCT 30, 2015 Proc: ce/iol left eye Follow Up Exam Allergies: PENICILLIN (May 15, 1994) SIMVASTATIN (Apr 01, 2006) LOBSTER (Jul 12, 2007) SCALLOPS (Jul 12, 2007) LISINOPRIL (Apr 03, 2008) METOPROLOL (Apr 03, 2008) FISH (Dec 04, 2009) CONTRAST MEDIA (Jul 06, 2022) ZOLPIDEM (Dec 20, 2023) TOPIRAMATE (January 03, 2024) Last refraction: Vision: CC(with glasses) OD:-1.75 +2.50 X028 20/60-2 0S:-0.50 +1.50 X165 20/40-1 MR from 07/14/24 OD:-1.75 +2.25 X030 20/40 today OS:-0.75 +1.50 X160 20/40+2 today Add: +2.50 Applanation 06/08 iCare 04/05 dilation @ 9:08AM /johana/ Miguel Angel Man [facility] Pump Station Operator Signed: 01/16/2025 09:09 MIGUEL ANGEL MAN [facility]
--- OUTSIDE RECORDS SUMMARY | 2025-04-05 03:00 | XMS_ITS | Encounter Summary ---
Author Name [facility] Organization [facility] Address [address] [place] [address] Care Team Providers Care [employer] Faculty Member Name Role Phone EDUARDO PAUL Primary Care [...] PART A Sep 30, 2010 PART A [id number] Isaac IGLESIAS PATIENT MEDICARE (WNR) MEDICARE (M) PART A Sep 30, 2010 PART A [id number] Isaac IGLESIAS PATIENT Selected Encounter This section includes the information on record at [place] for the Encounter. Date/Time Encounter Type Encounter Description Reason Provider Source Apr 05, 2025 08:00 AM OFFICE O/P EST [place] 40 MIN PRIMARY CARE/MEDICINE ICD-10-CM I25.10 [facility] heart disease [place] coronary artery w/o ang pctTONEY LevyHER Zulma Encounter Template Text not used by [place] Assessments - Encounter Diagnoses This section includes the primary and secondary diagnoses documented for the Encounter. Date/Time Primary/Secondary Diagnosis Diagnosis Name Provider Source Apr 05, 2025 08:41 AM PRIMARY [facility] heart disease [place] coronary artery w/o christiana chavarria [facility] Apr 05, 2025 08:41 AM SECONDARY Benign prostatic hyperplasia with lower urinary tract symp [facility] Apr 05, 2025 08:41 AM SECONDARY Chronic obstructive pulmonary disease, unspecified [facility] Apr 05, 2025 08:41 AM SECONDARY Chronic respiratory failure with hypoxia [facility] Apr 05, 2025 08:41 AM SECONDARY Clonic hemifacial spasm, right [facility] Apr 05, 2025 08:41 AM SECONDARY Emphysema, unspecified [facility] Apr 05, 2025 08:41 AM SECONDARY Encounter for immunization [facility] Apr 05, 2025 08:41 AM SECONDARY Essential (primary) hypertension [facility] Apr 05, 2025 08:41 AM SECONDARY Hyperlipidemia, unspecified [facility] Apr 05, 2025 08:41 AM SECONDARY Other obstructive and reflux uropathy [facility] Apr 05, 2025 08:41 AM SECONDARY Other recurrent depressive disorders [facility] Apr 05, 2025 08:41 AM SECONDARY Parkinsonism, unspecified [facility] Apr 05, 2025 08:41 AM SECONDARY Polyneuropathy, unspecified [facility] Apr 05, 2025 08:41 AM SECONDARY Post-traumatic stress disorder, chronic [facility] Apr 05, 2025 08:41 AM SECONDARY Primary osteoarthritis, unspecified site [facility] Apr 05, 2025 08:41 AM SECONDARY Pulmonary hypertension, unspecified [facility] Apr 05, 2025 08:41 AM SECONDARY Syncope and collapse [facility] Plan of Treatment: Future Appointments (+ 6 months) and Future Tests (+/- 45 days) The Plan of Treatment section includes future care activities for the patient from [facility] This section includes future appointments and future orders which are active, pending or scheduled. Future Appointments This section includes appointments that were scheduled to occur 6 months from the date of the Encounter, up to a maximum of 20 appointments. The data comes from all [facility]. Appointment Date/Time Appointment Type Appointme nt Facility Name Apr 13, 2025 08:30 AM AMBULATORY [facility] [place] Apr 16, 2025 08:30 AM [facility]ATORY - [facility] May 16, 2025 08:15 AM [facility] Jul 13, 2025 08:30 AM AMBULATORY - PSYCHIATRY [facility] Jul 19, 2025 10:30 AM AMBULATORY - REHAB [facility] Jul 19, 2025 11:20 AM AMBULATORY - MEDICINE [facility] Jul 19, 2025 01:30 PM AMBULATORY - MEDICINE [facility] Sep 04, 2025 08:30 AM AMBULATORY - SURGERY [facility] Sep 07, 2025 09:00 AM AMBULATORY - SURGERY [facility] Sep 24, 2025 08:30 AM AMBULATORY - REHAB [facility] Active, Pending, and Scheduled Orders This section includes a listing of several types of active, pending, and scheduled orders, including clinic medications orders, diagnostic test orders, procedure orders and consult orders; where the start date of the order is 45 days before the date of the Encounter or 45 days after the date of theEncounter. The data comes from all [facility]. Test Date/Time Test Type Test Details Facility Name Apr 16, 2025 10:24 AM Laboratory - Chemistry Order ENCEPHALOPATHY/PARANEOPL ASTIC EVAL, S SERUM SP ONCE [facility] May 16, 2025 08:15 AM Imaging - Nuclear Medicine Order MYOCARDIAL PERFUSION PHARMACOLOGIC STRESS/REST [facility] Lab Results: +/- 30 days [...] Unit Interpretation Reference Range Specimen Type Comment Apr 16, 2025 10:24 AM [facility] ISMAEL WITH REFLEX TO MORIAH/DNA SERUM Specimen Ty pe: SERUM No comment entered. Ordering Provider: ALHAJI EUBANKS Report Released Date/Time: Apr 16, 2025 09:52 AM Reporting Lab: [facility] [id number] Performing Lab: [facility] [phone] .ANTINUCLEAR ABELARDO NEGATIVE Negative Apr 16, 2025 10:24 AM [facility] ELP/IMMFIX,SERUM PANEL SERUM Speci men Type: SERUM No comment entered. Ordering Provider: ALHAJI EUBANKS Report Released Date/Time: Apr 16, 2025 09:52 AM Reporting Lab: [facility] [phone] Performing Lab: [facility] [phone] PROTEIN,TOTAL 8.4 g/dL H 6.4-8.3 .ALBUMIN FRACTION 4.47 g/dL 3.66-4.78 .ALPHA 1 FRACTION 0.32 g/dL 0.14-0.38 .ALPHA 2 FRACTION 0.97 g/dL H 0.50-0.90 .BETA 1 FRACTION 0.51 g/dL 0.33-0.55 .BETA 2 FRACTION 0.54 g/dL H 0.20-0.52 .GAMMA FRACTION 1.59 g/dL 0.58-1.72 .TOTAL PROTEIN 8.4 g/dL H 6.4-8.3 .INTERPRETATION NO MONOCLONALS DETECTED Apr 05, 2025 06:37 AM [facility] TSH W/REFLEX TO FREE T4 PLASMA Spec imen Type: PLASMA No comment entered. Ordering Provider: EDUARDO PAUL Report Released Date/Time: Oct 05, 2024 08:40 AM Reporting Lab: [facility] [phone] Performing Lab: [facility] [phone] TSH 1.74 u[IU]/mL 0.35-4.94 Apr 05, 2025 06:37 AM [facility] B 12 SERUM Specimen Type : SERUM No comment entered. Ordering Provider: EDUARDO PAUL Report Released Date/Time: Oct 05, 2024 08:40 AM Reporting Lab: [facility] [phone] Performing Lab: [facility] [address] B 12 387 pg/mL 213-816 Apr 05, 2025 06:37 AM [facility] FOLATE SERUM Specimen Type : SERUM No comment entered. Ordering Provider: EDUARDO PAUL Report Released Date/Time: Oct 05, 2024 08:40 AM Reporting Lab: [facility] [phone] Performing Lab: [facility] [phone] FOLATE 2.8 ng/mL L >7.0 Apr 05, 2025 06:37 AM [facility] CBC BLOOD Specimen Type: BLOOD No comment entered. Ordering Provider: EDUARDO PAUL Report Released Date/Time: Oct 05, 2024 08:40 AM Reporting Lab: [facility] [phone] Performing Lab: [facility] [phone] WBC 3.3 L 4.0-11.0 RBC 3.72 L 4.60-6.20 HGB 11.4 g/dL L 13.5-17.9 HCT 34.6 L 41.0-54.0 MCV 93.0 fL 80.0-100.0 MCH 30.6 pg 27.0-33.0 MCHC 32.9 g/dL 32.0-37.5 PLT 136 L 150-400 MPV 9.8 fL 9.1-13.0 RDW 15.3 H 11.5-14.5 Apr 05, 2025 06:37 AM [facility] BNP PLASMA Specimen Type : PLASMA No comment entered. Ordering Provider: EDUARDO PAUL Report Released Date/Time: Oct 05, 2024 08:40 AM Reporting Lab: [facility] [phone] Performing Lab: [facility] [phone] BNP 104 pg/mL H <99 Apr 05, 2025 06:37 AM [facility] COMPREHENSIVE METABOLIC PANEL+MG PLASMA Specimen Type: PLASMA No comment entered. Ordering Provider: EDUARDO PAUL Report Released Date/Time: Oct 05, 2024 08:40 AM Reporting Lab: [facility] [phone] Performing Lab: [facility] [phone] CREATININE 2.0 mg/dL H 0.7-1.2 UREA NITROGEN 36 mg/dL H 8-26 GLUCOSE 85 mg/dL 70-100 SODIUM 136 mmol/L 136-145 POTASSIUM 4.5 mmol/L 3.5-5.1 CHLORIDE 100 mmol/L 98-107 CO2 28 mmol/L 22-29 CALCIUM 8.9 mg/dL 8.4-10.2 PROTEIN,TOTAL 7.0 g/dL 6.4-8.3 ALBUMIN 4.0 g/dL 3.5-5.0 BILIRUBIN, TOTAL 0.6 mg/dL 0.2-1.2 MAGNESIUM 2.1 mg/dL 1.6-2.6 ANION GAP 8 mmol/L 5-15 ALKALINE PHOSPHATASE 64 U/L 40-150 ALT/SGPT 8 U/L <44 AST/SGOT 18 U/L 11-34 .CREAT EGFR(CKD-EPI) 33 L >60 Apr 05, 2025 06:37 AM [facility] FERRITIN SERUM Specimen Type : SERUM No comment entered. Ordering Provider: EDUARDO PAUL Report Released Date/Time: Oct 05, 2024 08:40 AM Reporting Lab: [facility] [phone] Performing Lab: [facility] [phone] FERRITIN 447.3 ng/mL H 21.8-274.7 Apr 05, 2025 06:37 AM [facility] VIT D 25-OH,TOTAL SERUM Specimen T ype: SERUM No comment entered. Ordering Provider: EDUARDO PAUL Report Released Date/Time: Oct 05, 2024 08:40 AM Reporting Lab: [facility] [phone] Performing Lab: [facility] [phone] VIT D 25-OH,TOTAL 42 ng/mL 12-50 Apr 05, 2025 06:37 AM [facility] IRON GROUP SERUM Specimen Type : SERUM No comment entered. Ordering Provider: EDUARDO PAUL Report Released Date/Time: Oct 05, 2024 08:40 AM Reporting Lab: [facility] [phone] Performing Lab: [facility] [phone] IRON 129 ug/dL 65-175 TIBC,CALCULATED 265 ug/dL 250-425 FERRITIN 447.3 ng/mL H 21.8-274.7 IRON SATURATION 49 20-50 TRANSFERRIN 212 mg/dL 163-382 Apr 05, 2025 06:37 AM [facility] METHYLMALONIC ACID SERUM Specimen Type: SERUM No comment entered. Ordering Provider: EDUARDO PAUL Report Released Date/Time: Apr 05, 2025 11:20 AM Reporting Lab: [facility] [phone] Performing Lab: [facility] [phone] METHYLMALONIC ACID 350 nmol/L 0-400 Apr 05, 2025 06:37 AM [facility] HOMOCYSTEINE PLASMA Specimen Type : PLASMA No comment entered. Ordering Provider: EDUARDO PAUL Report Released Date/Time: Apr 05, 2025 11:21 AM Reporting Lab: [facility] [phone] Performing Lab: [facility] [phone] HOMOCYSTEINE 37.9 umol/L H 5.1-15.4 Vital Signs: All taken on the encounter date This section contains inpatient and outpatient Vital Signs collected on the date of the Encounter. Date/Time Temperature Pulse Blood Pressure Respiratory Rate SP02 Pain Height Weight Body Mass Index Source Apr 05, 2025 07:39 AM 97.5 F 84 /min 128/76 mm[Hg] 16 /min 96 % 0 65 in 164.3 lb 27 [facility] Apr 05, 2025 07:39 AM 16 /min 65 in [facility] Immunizations: All administered on the encounter date This section contains immunizations associated to the Encounter. Immunization Series Date Issued Administered By Site Reaction Lot Number CVX Code Drug Event Producer Comment(s) Source COVID-19 (PFIZER), MRNA, LNP-S, PF, CHERYL-SUCROSE, 30 MCG/0.3 ML (AGES 12+ YEARS) Apr 05, 2025 MITCH TOVAR RIGHT DELTO ID [id number] [employer] ADMINISTERE D AT [facility] Social History: Smoking Status (Most [...] 08:00 AM VA-TOBACCO NEVER USED OTHER TYPE [facility] Tobacco Use History This section includes a history of the smoking, or tobacco-related health factors, that were collected on or before the date of the Encounter. The data comes from the [place] facility where the Encounter took place. Date/Time Smoking Status/Tobacco Use Comment F acility Oct 05, 2024 08:00 AM VA-TOBACCO USE FORMER CIGARETTES [facility] Oct 11, 2023 08:00 AM VA-TOBACCO FORMER USER [facility] Oct 11, 2023 08:00 AM [...] Source Dec 04, 2009 CLINICAL WARNING KAMARI CUMMINGSRajesh [facility] Encounter Notes: All associated encounter notes This section contains the clinical notes associated to the Encounter. Date/Time Encounter Note(s) Provider Source Apr 05, 2025 08:35 AM INTERNAL MEDICINE NOTE: LOCAL TITLE: MEDICINE CLINIC NOTE STANDARD TITLE: INTERNAL MEDICINE NOTE DATE OF NOTE: APR 05, 2025@08:35 ENTRY DATE: APR 05, 2025@08:35:52 AUTHOR: J LUIS PAUL COSIGNER: URGENCY: STATUS: COMPLETED Subjective The patient is a 79-year-old male named Mr. Iglesias with a history of coronary artery disease, emphysema, and chronic kidney disease presenting with worsening exertional chest pain and shortness of breath over the past 6 months. He reports experiencing chest pain described as a pressure and squeezing sensation in his chest when walking or engaging in activities. The pain occurs after walking 4 or 5 blocks and is accompanied by shortness of breath, pounding heart, and lightheadedness. These symptoms are relieved by sitting down and relaxing. The patient denies radiation of pain to his neck or arm. The patient has a history of myocardial infarction in 1999 and had three stents placed in 2003. He reports that his symptoms have been progressively worsening over the last 6 months. The patient reports a history of breathing difficulties, which were previously evaluated by pulmonology. An ER visit revealed fluid backing up around his heart and lungs, affecting his oxygen levels. This was managed with the addition of a diuretic (torsemide), which has improved his oxygen saturation to the nineties. The patient is also dealing with neuropathy, which he describes as awful. 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 He mentions difficulty with yard work due to low energy levels. He is grieving the recent loss of his in December but denies feeling depressed. He is scheduled to see a psychiatrist, Dr. Calderón, on the of this month. 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 Calderón - Exercise: Able to walk 4-5 blocks before experiencing symptoms Review of Systems Cardiovascular: Positive for chest pain with exertion, palpitations, dyspnea on exertion, dizziness, lightheadedness. Respiratory: Positive for shortness of breath with activity. Neurological: Positive for neuropathy. General: Positive for fatigue. Psychiatric: Negative for depression. Objective Physical Examination Vital Signs: Blood pressure 128/76 mmHg General NAD WDWN Ambulatory Overweight Conversive, pleasant Cardiac: RRR with normal S1 and S2; without murmur, gallop, rub. Chest/Lungs: Bilaterally clear, Clear to auscultation Extremities: Ankles with trace edema on the right. 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 Coronary Artery Disease with Angina Assessment: Patient has known history of coronary artery disease with previous myocardial infarction in 1999 and three stents placed in 2003. Reports worsening exertional chest pain and shortness of breath over the last 6 months. Symptoms include pressure and squeezing sensation in the chest, occurring after walking 4-5 blocks, associated with lightheadedness. Symptoms resolve with rest. Last chemical stress test was normal 6 years ago in 2019. Given the patient's history and current symptoms, there is concern for possible progression of coronary artery disease or in-stent restenosis. Plan: - Order adenosine stress thallium test to evaluate for myocardial ischemia - Prescribe new nitroglycerin tablets for acute anginal episodes - Continue current medications: Xarelto, atorvastatin, telmisartan - Follow up after stress test results are available -Secondary risk factor modification appropriate Chronic Kidney Disease Assessment: Patient has known chronic kidney disease. Recent lab results show slightly elevated but stable kidney function numbers. Associated chronic anemia noted. Plan: - Continue monitoring renal function Peripheral Neuropathy Assessment: Patient reports significant neuropathic symptoms. 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 Plan: - Continue gabapentin 600 mg twice daily - Renew lidocaine ointment for topical symptom management Chronic Obstructive Pulmonary Disease Assessment: Patient has history of breathing difficulties, currently managed with inhalers. No acute exacerbations reported. Plan: - Continue current inhaler regimen: Wixela, Spiriva, albuterol as needed - Continue torsemide for fluid management Preventive Care Assessment: Patient due for COVID-19 vaccination. Too early for influenza vaccination. Plan: - Administer COVID-19 vaccine today - Defer influenza vaccine for now Bereavement Assessment: Patient's in December. Reports grieving but denies depression. Currently under psychiatric care. Plan: - Continue follow-up with psychiatrist, Dr. Calderón Plan: Return to Clinic in 1 year with labs Labs today Call as needed [...] were also reviewed/updated for accuracy. Allergies/ADR from [facility] may not display in CPRS. Use JLV MRT5 - Allergies/ADRs FACILITY ALLERGY/ADR -------- No Remote Allergy/ADR Data available for this patient [facility] CONTRAST MEDIA [facility] FISH [facility] LISINOPRIL [facility] LOBSTER [facility] METOPROLOL [facility] PENICILLIN [facility] SCALLOPS [facility] SIMVASTATIN [facility] TOPIRAMATE [facility] ZOLPIDEM Active and Recently Outpatient Medications (including Supplies): Issue Date Status Last Fill Active Outpatient Medications Refills Expiration 1) ALBUTEROL 90MCG (CFC-F) 200D ORAL INHL Qty: ACTIVE Issue: 11/10/24 2 for 50 days Sig: INHALE 2 PUFFS BY Refills: 5 Last : 11/13/24 INHALATION EVERY 4 HOURS NEEDED FOR Expr : 11/11/25 SHORTNESS OF BREATH Indication: FOR SHORTNESS OF BREATH 2) ATORVASTATIN CALCIUM 40MG TAB Qty: 90 for 90 ACTIVE Issue: 09/29/24 days Sig: TAKE ONE TABLET BY MOUTH EVERY DAY Refills: 2 Last : 03/19/25 FOR CHOLESTEROL Expr : 09/30/25 3) BRIMONIDINE TARTRATE 0.2% OPH SOLN Qty: 10 ACTIVE Issue: 01/16/25 for 30 days Sig: INSTILL 1 DROP IN BOTH EYES Refills: 10 Last : 02/22/25 TWICE A DAY FOR GLAUCOMA SPACE 10 MINUTES Expr : 01/17/26 APART FROM OTHER EYE DROPS 4) BUSPIRONE HCL 5MG TAB Qty: 180 for 90 days ACTIVE Issue: 10/01/24 Sig: TAKE ONE TABLET BY MOUTH TWICE A DAY Refills: 1 Last : 03/21/25 FOR MOOD Expr : 10/02/25 Indication: FOR MOOD 5) CALCIUM CARBONATE 650MG (CA 260MG) TAB Qty: ACTIVE Issue: 10/05/24 90 for 90 days Sig: TAKE ONE TABLET BY MOUTH Refills: 1 Last : 04/10/25 EVERY DAY Expr : 10/06/25 6) CARBOXYMETHYLCELLULOSE NA 0.25% OPH SOLN ACTIVE Issue: 01/16/25 Qty: 30 for 30 days Sig: INSTILL 2 DROPS IN Refills: 4 Last : 02/19/25 OPERATIVE EYE EVERY 2 HOURS NEEDED FOR Expr : 01/17/26 DRY EYES Indication: FOR DRY EYES 7) CHOLECALCIF 25MCG (D3-1,000UNIT) TAB Qty: ACTIVE (S) Issue: 10/05/24 100 for 90 days Sig: TAKE ONE TABLET BY Refills: 1 Last : 05/14/25 MOUTH EVERY DAY Expr : 10/06/25 8) CYANOCOBALAMIN 500MCG TAB Qty: 100 for 90 ACTIVE Issue: 09/11/24 days Sig: TAKE ONE TABLET BY MOUTH EVERY DAY Refills: 1 Last : 03/01/25 FOR B12 SUPPLEMENT Expr : 09/12/25 Indication: FOR B12 SUPPLEMENT 9) DICLOFENAC NA 1% TOP GEL Qty: 200 for 30 ACTIVE Issue: 01/12/25 days Sig: APPLY 2 GRAMS TOPICALLY THREE Refills: 4 Last : 02/14/25 TIMES A DAY NEEDED FOR FOOT PAIN Expr : 01/13/26 Indication: FOR FOOT PAIN 10) FLUTICAS 500/SALMETEROL 50 INHL DISK 60 Qty: ACTIVE Issue: 10/05/24 3 for 90 days Sig: INHALE 1 PUFF BY Refills: 1 Last : 04/09/25 INHALATION TWICE A DAY FOR COPD *RINSE MOUTH Expr : 10/06/25 AFTER EACH USE* Indication: FOR COPD 11) FLUTICASONE PROP 50MCG 120D NASAL INHL Qty: ACTIVE Issue: 10/05/24 3 for 90 days Sig: SPRAY 2 SPRAYS IN EACH Refills: 2 Last : 03/12/25 NOSTRIL EVERY DAY FOR CONGESTION Expr : 10/06/25 Indication: FOR CONGESTION 12) GABAPENTIN 600MG TAB Qty: 180 for 90 days ACTIVE (S) Issue: 10/05/24 Sig: TAKE ONE TABLET BY MOUTH TWICE A DAY Refills: 1 Last : 05/08/25 FOR PAIN AND NUMBNESS Expr : 10/06/25 Indication: FOR PAIN AND NUMBNESS 13) GUAIFENESIN 200MG TAB Qty: 100 for 30 days ACTIVE Issue: 10/05/24 Sig: TAKE ONE TABLET BY MOUTH THREE TIMES A Refills: 0 Last : 02/22/25 DAY NEEDED FOR PHLEM Expr : 10/06/25 Indication: FOR PHLEM 14) LIDOCAINE 5% PATCH Qty: 30 for 30 days Sig: ACTIVE Issue: 02/15/25 APPLY 1 PATCH TOPICALLY EVERY DAY NEEDED Refills: 5 Last : 03/12/25 FOR UP TO 12 HOURS FOR PAIN Expr : 02/16/26 Indication: FOR UP TO 12 HOURS FOR PAIN 15) POTASSIUM CL 20MEQ SA TAB (DISPERSIBLE) Qty: ACTIVE (S) Issue: 10/05/24 90 for 90 days Sig: TAKE ONE TABLET BY MOUTH Refills: 1 Last : 05/07/25 EVERY DAY FOR POTASSIUM SUPPLEMENT Expr : 10/06/25 Indication: FOR POTASSIUM SUPPLEMENT 16) RIVAROXABAN 20MG TAB Qty: 90 for 90 days ACTIVE Issue: 01/11/25 Sig: TAKE ONE TABLET BY MOUTH EVERY DAY WITH Refills: 3 Last : 04/03/25 THE LARGEST MEAL OF THE DAY TO TREAT AND/OR Expr : 01/12/26 PREVENT BLOOD CLOTS 17) SERTRALINE HCL 100MG TAB Qty: 180 for 90 ACTIVE (S) Issue: 02/15/25 days Sig: TAKE TWO TABLETS BY MOUTH EVERY Refills: 3 Last : 05/21/25 DAY FOR DEPRESSION & PTSD Expr : 02/16/26 Indication: FOR DEPRESSION & PTSD 18) TELMISARTAN 20MG TAB Qty: 90 for 90 days ACTIVE (S) Issue: 08/25/24 Sig: TAKE ONE TABLET BY MOUTH EVERY DAY FOR Refills: 0 Last : 05/12/25 BLOOD PRESSURE Expr : 08/26/25 Indication: FOR BLOOD PRESSURE 19) TIOTROPIUM 2.5MCG/ACTUAT 60D ORAL INHL Qty: ACTIVE (S) Issue: 11/10/24 3 for 90 days Sig: INHALE TWO PUFFS BY Refills: 1 Last : 05/02/25 INHALATION EVERY DAY FOR COPD Expr : 11/11/25 Indication: FOR COPD 20) TORSEMIDE 20MG TAB Qty: 90 for 90 days Sig: ACTIVE Issue: 10/05/24 TAKE ONE TABLET BY MOUTH EVERY DAY FOR Refills: 1 Last : 03/24/25 EXCESS FLUID Expr : 10/06/25 Indication: FOR EXCESS FLUID 21) VANICREAM TOP CREAM Qty: 454 for 30 days ACTIVE Issue: 12/11/24 Sig: APPLY THIN LAYER TOPICALLY DIRECTED Refills: 1 Last : 02/20/25 FOR DRY SKIN Expr : 12/12/25 Indication: FOR DRY SKIN Issue Date Status Last Fill Pending Outpatient Medications Refills Expiration 1) ATORVASTATIN CALCIUM 40MG TAB Qty: 90 Sig: PENDING TAKE ONE TABLET BY MOUTH EVERY DAY FOR Refills: 0 CHOLESTEROL 2) CALCIUM CARBONATE 650MG (CA 260MG) TAB Qty: PENDING 90 Sig: TAKE ONE TABLET BY MOUTH EVERY DAY Refills: 0 3) CHOLECALCIF 25MCG (D3-1,000UNIT) TAB Qty: PENDING 100 Sig: TAKE ONE TABLET BY MOUTH EVERY DAY Refills: 0 4) DICLOFENAC NA 1% TOP GEL Qty: 200 Sig: APPLY PENDING 2 GRAMS TOPICALLY THREE TIMES A DAY Refills: 0 NEEDED Indication: FOR FOOT PAIN 5) FLUTICAS 500/SALMETEROL 50 INHL DISK 60 Qty: PENDING 3 Sig: INHALE 1 PUFF BY INHALATION TWICE A Refills: 0 DAY *RINSE MOUTH AFTER EACH USE* Indication: FOR COPD 6) GABAPENTIN 600MG TAB Qty: 180 Sig: TAKE ONE PENDING TABLET BY MOUTH TWICE A DAY Refills: 0 Indication: FOR PAIN AND NUMBNESS 7) GUAIFENESIN 200MG TAB Qty: 100 Sig: TAKE ONE PENDING TABLET BY MOUTH THREE TIMES A DAY NEEDED Refills: 0 Indication: FOR PHLEM 8) LIDOCAINE 5% OINT Qty: 210 Sig: APPLY PENDING MODERATE AMOUNT TOPICALLY THREE TIMES A DAY Refills: 0 NEEDED Indication: FOR PAIN 9) NITROGLYCERIN 0.4MG SL TAB Qty: 100 Sig: PENDING DISSOLVE ONE TABLET UNDER THE TONGUE EVERY 5 Refills: 0 MINUTES FOR UP TO 3 DOSES IF NEEDED Indication: FOR CHEST PAIN 10) POTASSIUM CL 20MEQ SA TAB (DISPERSIBLE) Qty: PENDING 90 Sig: TAKE ONE TABLET BY MOUTH EVERY DAY Refills: 0 Indication: FOR POTASSIUM SUPPLEMENT 11) TELMISARTAN 20MG TAB Qty: 90 Sig: TAKE ONE PENDING TABLET BY MOUTH EVERY DAY Refills: 0 Indication: FOR BLOOD PRESSURE 12) TIOTROPIUM 2.5MCG/ACTUAT 60D ORAL INHL Qty: PENDING 3 Sig: INHALE TWO PUFFS BY INHALATION EVERY Refills: 0 DAY Indication: FOR COPD 13) TORSEMIDE 20MG TAB Qty: 90 Sig: TAKE ONE PENDING TABLET BY MOUTH EVERY DAY Refills: 0 Indication: FOR EXCESS FLUID 14) VANICREAM TOP CREAM Qty: 454 Sig: APPLY THIN PENDING LAYER TOPICALLY DIRECTED Refills: 0 Indication: FOR DRY SKIN /es/ Toney Paul APRN, DRY MIXER Family Nurse Practitioner Signed: 04/05/2025 08:42 [facility] Apr 05, 2025 07:44 AM INTERNAL MEDICINE OUTPATIENT NOTE: LOCAL TITLE: MEDICINE CLINIC NURSING NOTE STANDARD TITLE: INTERNAL MEDICINE OUTPATIENT NOTE DATE OF NOTE: APR 05, 2025@07:44 ENTRY DATE: APR 05, 2025@07:44:41 AUTHOR: JASMINA TOVAR COSIGNER: URGENCY: STATUS: COMPLETED MEDICINE CLINIC NURSING NOTE Has ADDENDA TYPE OF VISIT: Appointment Check In Type of appointment: In-person appointment REASON FOR VISIT: ALLERGIES: PENICILLIN (May 15, 1994) SIMVASTATIN (Apr 01, 2006) LOBSTER (Jul 12, 2007) SCALLOPS (Jul 12, 2007) LISINOPRIL (Apr 03, 2008) METOPROLOL (Apr 03, 2008) FISH (Dec 04, 2009) CONTRAST MEDIA (Jul 06, 2022) ZOLPIDEM (Dec 20, 2023) TOPIRAMATE (January 03, 2024) VITAL SIGNS: Blood Pressure: 128/76 (04/05/2025 07:39) Pulse: 84 (04/05/2025 07:39) Respiration: 16 (04/05/2025 07:39) Temperature: 97.5 F [36.4 C] (04/05/2025 07:39) Weight: 164.3 lb [74.53 kg] (04/05/2025 07:39) Height: 65 in [165.1 cm] (04/05/2025 07:39) BMI: 27.4 O2 Sat: 96% (04/05/2025 07:39) Pain: 0 (04/05/2025 07:39) MEDICATION Over the Counter/Herbal Medications: The patient denies taking any outside medications or herbals. Homelessness/Food Insecurity Screen: In the past 2 [...] Not worried about housing near future The reports the following: Within the past 12 months, you worried whether your food would run out before you got money to buy more. Never true Within the past 12 months, the food you bought just didn't last and you didn't have money to get more. Never true Food Assistance Programs [facility] Food Assistance Programs [facility] [place] [facility] Annual Screening: Fall History Screen During the past 12 months, have you had any falls? Patient does not report any falls in the past 12 months. MEDICATIONS: Patient is on one of the following medication classes: Antihypertensives, Antidepressants, Antipsychotics, Diuretics, or Controlled substance medication used for pain. Skin Screen Patient reports any current pressure ulcers, a history of pressure ulcers, or a wound from a medical program specialist or Patient is bed-confined or a wheelchair-user or Patient requires assistance to transfer/change position No, Skin Screen is Negative Home Abuse/Violence Screen Is your home free of abuse and violence? Yes Outpatient Nutrition Screen Body Mass Index (BMI)= 27.4 [place]: Collection DT Specimen Test Name Result Units Ref Range 11/05/2023 10:21 BLOOD !! HEMOGLOBIN A1C 5.5 % 4.0 - 6.0 !! Indicates COMMENTS AVAILABLE...Refer to Interim Lab Report. [place] Hgb A1C: No data available [place] Hgb A1C: No data available Point of Care Hgb A1C: POC HGB A1C____ Is patient's BMI less than 18.5? No Does patient have swallowing, coughing, or chewing problems affecting oral intake? No Has patient experienced unplanned weight loss or gain greater than 10 pounds over the last 2 months? No Is patient's Hgb A1C (Glycosylated Hemoglobin) greater than 9.5? No Is patient receiving Total Parenteral Nutrition (TPN) or Tube Feedings? No Client Assistive Service (JOSE) Screen Does the patient require assistance with outpatient visit? No Alcohol Use Screen (AUDIT-C): Alcohol Screen: SCREEN FOR ALCOHOL (AUDIT-C) An alcohol screening test (AUDIT-C) was negative (score=3). 1. How often did you have a drink containing alcohol in the past year? Consider a drink to be a 12 ounce can or bottle of regular beer, 8 ounces of malt liquor, a 5 ounce glass of table wine, or a 1.5 ounce shot of liquor (like scotch, gin, or vodka). Two to three times per week 2. How many drinks containing alcohol did you have on a typical day when you were drinking in the past year? One or two drinks 3. How often did you have six or more drinks on one occasion in the past year? Never /johana/ JASMINA TOVAR LPN Signed: 04/05/2025 07:48 04/05/2025 ADDENDUM STATUS: COMPLETED COVID-19 Immunization: Pfizer Monovalent (Comirnaty) Administered: COVID-19 (PFIZER), MRNA, LNP-S, PF, CHERYL-SUCROSE, 30 MCG/0.3 ML (AGES 12+ YEARS) Date Administered: Apr 05, 2025 08:00 Event Producer: [employer] Lot: [id number] Exp Date: Jun 09, [address] [facility]: [phone] Admin Route/Site: INTRAMUSCULAR/RIGHT DELTOID Dosage: 0.3mL Vaccine Information Statement(s): COVID-19 MRNA VACCINE (12+ YRS) VIS Sep 29, 2024 (ROMANIAN) Order By: Policy Administered By: Jasmina Tovar The COVID-19 Vaccine Information Statement (VIS) was reviewed with the patient/surrogate decision maker which lists the benefits and risks of not receiving the COVID-19 vaccine. The patient/surrogate decision maker denied any prior severe reaction to this vaccine or its components or a severe allergic reaction such as anaphylaxis to any vaccine or any injectable therapy. The patient/surrogate decision maker gave verbal consent to receive the vaccine. /johana/ JASMINA TOVAR LPN Signed: 04/05/2025 08:36 JASMINA TOVAR [facility]
--- OUTSIDE RECORDS SUMMARY | 2025-04-05 03:00 | XMS_ITS | Encounter Summary ---
Author Name [facility] [place] [facility] Address [address] [place] [address] Care Team Providers Care Shipping Room Supervisor Name Role Phone EDUARDO PAUL Primary Care [...] PART A Sep 30, 2010 PART A [id number] [phone] Isaac IGLESIAS PATIENT MEDICARE (WNR) MEDICARE (M) PART A Sep 30, 2010 PART A [id number] Isaac IGLESIAS PATIENT Selected Encounter This section includes the information on record at [place] for the Encounter. Date/Time Encounter Type Encounter Description Reason Pro vider Source Apr 05, 2025 08:00 AM Outpatient Encounter PRIMARY CARE/MEDICINE IHE Encounter Template Text not used by [place] Plan of Treatment: Future Appointments (+ 6 months) and Future Tests (+/- 45 days) The Plan of Treatment section includes future care activities for the [facility] [place] [facility] This section includes future appointments [...] 13, 2025 08:30 AM AMBULATORY - [place]CHIATRY [place] [facility] Apr 16, 2025 08:30 AM AMBULATORY - REHAB MEDICIN E [facility] May 16, 2025 08:15 AM AMBULATORY - NONE [facility] Jul 13, 2025 08:30 AM AMB[place] [facility] Jul 19, 2025 10:30 [facility] Jul 19, 2025 11:20 AM AMBULATORY - MEDICINE [facility] Jul 19, 2025 01:30 PM AMBULATORY - MEDICINE [facility] Sep 04, 2025 08:30 AM AMBULATORY - SURGERY [facility] Sep 07, 2025 09:00 AM AMBULATORY - SURGERY [facility] Sep 24, 2025 08:30 AM AMBULATORY - REHAB [facility] Active, Pending, and Scheduled Orders This section includes a listing of several types of active, pending, and scheduled orders, including clinic medications orders, diagnostic test orders, procedure orders and consult orders; where the start date of the order is 45 days before the date of the Encounter or 45 days after the date of theEncounter. The data comes from all [facility]. Test Date/Time Test Type Test Details Facility Name Apr 16, 2025 10:24 AM Laboratory - Chemistry Order ENCEPHALOPATHY/PARANEOPL ASTIC EVAL, S SERUM SP ONCE [facility] May 16, 2025 08:15 AM Imaging - Nuclear Medicine Order MYOCARDIAL PERFUSION PHARMACOLOGIC STRESS/REST HARMAN [facility] Lab Results: +/- 30 days of the encounter This section includes the Chemistry and Hematology Lab Results on record with [place] for the patient. Radiology Reports and Pathology Reports are provided separately, in subsequent sections. Lab Results This section contains the Chemistry/Hematology Results that were resulted 30 days before or 30 daysafter the date of the Encounter. Date/Time Source Result Type Result - Unit Interpretation Reference Range Specimen Type Comment Apr 16, 2025 10:24 AM [facility] ISMAEL WITH REFLEX TO MORIAH/DNA SERUM Specimen Ty pe: SERUM No comment entered. Ordering Provider: ALHAJI EUBANKS Report Released Date/Time: Apr 16, 2025 09:52 AM Reporting Lab: [facility] [id number] Performing Lab: [facility] [phone] .ANTINUCLEAR ABELARDO NEGATIVE Negative Apr 16, 2025 10:24 AM [facility] ELP/IMMFIX,SERUM PANEL SERUM Speci men Type: SERUM No comment entered. Ordering Provider: ALHAJI EUBANKS Report Released Date/Time: Apr 16, 2025 09:52 AM Reporting Lab: [facility] [phone] Performing Lab: [facility] [phone] PROTEIN,TOTAL 8.4 g/dL H 6.4-8.3 .ALBUMIN FRACTION 4.47 g/dL 3.66-4.78 .ALPHA 1 FRACTION 0.32 g/dL 0.14-0.38 .ALPHA 2 FRACTION 0.97 g/dL H 0.50-0.90 .BETA 1 FRACTION 0.51 g/dL 0.33-0.55 .BETA 2 FRACTION 0.54 g/dL H 0.20-0.52 .GAMMA FRACTION 1.59 g/dL 0.58-1.72 .TOTAL PROTEIN 8.4 g/dL H 6.4-8.3 .INTERPRETATION NO MONOCLONALS DETECTED Apr 05, 2025 06:37 AM [facility] TSH W/REFLEX TO FREE T4 PLASMA Spec imen Type: PLASMA No comment entered. Ordering Provider: EDUARDO PAUL Report Released Date/Time: Oct 05, 2024 08:40 AM Reporting Lab: [facility] [phone] Performing Lab: [facility] [phone] TSH 1.74 u[IU]/mL 0.35-4.94 Apr 05, 2025 06:37 AM [facility] CBC BLOOD Specimen Type: BLOOD No comment entered. Ordering Provider: EDUARDO PAUL Report Released Date/Time: Oct 05, 2024 08:40 AM Reporting Lab: [facility] [phone] Performing Lab: [facility] [phone] WBC 3.3 L 4.0-11.0 RBC 3.72 L 4.60-6.20 HGB 11.4 g/dL L 13.5-17.9 HCT 34.6 L 41.0-54.0 MCV 93.0 fL 80.0-100.0 MCH 30.6 pg 27.0-33.0 MCHC 32.9 g/dL 32.0-37.5 PLT 136 L 150-400 MPV 9.8 fL 9.1-13.0 RDW 15.3 H 11.5-14.5 Apr 05, 2025 06:37 AM [facility] BNP PLASMA Specimen Type : PLASMA No comment entered. Ordering Provider: EDUARDO PAUL Report Released Date/Time: Oct 05, 2024 08:40 AM Reporting Lab: [facility] [phone] Performing Lab: [facility] [phone] BNP 104 pg/mL H <99 Apr 05, 2025 06:37 AM [facility] COMPREHENSIVE METABOLIC PANEL+MG PLASMA Specimen Type: PLASMA No comment entered. Ordering Provider: EDUARDO PAUL Report Released Date/Time: Oct 05, 2024 08:40 AM Reporting Lab: [facility] [phone] Performing Lab: [facility] [phone] CREATININE 2.0 mg/dL H 0.7-1.2 UREA NITROGEN [...] L >60 Apr 05, 2025 06:37 AM [facility] B 12 SERUM Specimen Type : SERUM No comment entered. Ordering Provider: EDUARDO PAUL Report Released Date/Time: Oct 05, 2024 08:40 AM Reporting Lab: [facility] [phone] Performing Lab: [facility] [phone] B 12 387 pg/mL 213-816 Apr 05, 2025 06:37 AM [facility] FOLATE SERUM Specimen Type : SERUM No comment entered. Ordering Provider: EDUARDO PAUL Report Released Date/Time: Oct 05, 2024 08:40 AM Reporting Lab: [facility] [phone] Performing Lab: [facility] [phone] FOLATE 2.8 ng/mL L >7.0 Apr 05, 2025 06:37 AM [facility] FERRITIN SERUM Specimen Type : SERUM No comment entered. Ordering Provider: EDUARDO PAUL Report Released Date/Time: Oct 05, 2024 08:40 AM Reporting Lab: [facility] [phone] Performing Lab: [facility] [phone] FERRITIN 447.3 ng/mL H 21.8-274.7 Apr 05, 2025 06:37 AM [facility] VIT D 25-OH,TOTAL SERUM Specimen T ype: SERUM No comment entered. Ordering Provider: EDUARDO PAUL Report Released Date/Time: Oct 05, 2024 08:40 AM Reporting Lab: [facility] [phone] Performing Lab: [facility] [address] VIT D 25-OH,TOTAL 42 ng/mL 12-50 Apr 05, 2025 06:37 AM [facility] IRON GROUP SERUM Specimen Type : SERUM No comment entered. Ordering Provider: EDUARDO PAUL Report Released Date/Time: Oct 05, 2024 08:40 AM Reporting Lab: [facility] [phone] Performing Lab: [facility] [phone] IRON 129 ug/dL 65-175 TIBC,CALCULATED 265 ug/dL 250-425 FERRITIN 447.3 ng/mL H 21.8-274.7 IRON SATURATION 49 20-50 TRANSFERRIN 212 mg/dL 163-382 Apr 05, 2025 06:37 AM [facility] METHYLMALONIC ACID SERUM Specimen Type: SERUM No comment entered. Ordering Provider: EDUARDO PAUL Report Released Date/Time: Apr 05, 2025 11:20 AM Reporting Lab: [facility] [phone] Performing Lab: [facility] [phone] METHYLMALONIC ACID 350 nmol/L 0-400 Apr 05, 2025 06:37 AM [facility] HOMOCYSTEINE PLASMA Specimen Type : PLASMA No comment entered. Ordering Provider: EDUARDO PAUL Report Released Date/Time: Apr 05, 2025 11:21 AM Reporting Lab: [facility] [phone] Performing Lab: [facility] [phone] HOMOCYSTEINE 37.9 umol/L H 5.1-15.4 Vital Signs: [...] % 0 65 in 164.3 lb 27 [facility] Apr 05, 2025 07:39 AM 16 /min 65 in [facility] Social History: Smoking Status (Most current) and Tobacco Use (All prior to encounter date) This section includes the most current, and the historical, smoking and tobacco- related health factors from the [facility] where the Encounter took place. Current Smoking Status This section includes the most current smoking, or tobacco-related health factor, from the [place] facility where the Encounter took place. Date/Time Current Smoking Status Comment Anuja ity Oct 05, 2024 08:00 AM [place]-TOBACCO USE FORMER CIGARETTES [facility] Tobacco Use History This section includes a history of the smoking, or tobacco-related health factors, that were collected on or before the date of the Encounter. The data comes from the [place] facility where the Encounter took place. Date/Time Smoking Status/Tobacco Use Comment F acility Oct 05, 2024 08:00 AM [place]-TOBACCO USE FORMER CIGARETTES [facility] Oct 11, 2023 08:00 AM [place]-TOBACCO FORMER USER [facility] Oct 11, 2023 08:00 AM VA-TOBACCO QUIT 15 YRS OR MORE [facility] Aug 17, 2022 09:15 AM VA-TOBACCO FORMER USER [facility] Aug 17, 2022 09:15 AM VA-TOBACCO QUIT 15 YRS OR MORE [facility] Oct 27, 2021 09:00 AM VA-TOBACCO FORMER USER [facility] Oct 27, 2021 09:00 AM VA-TOBACCO QUIT 15 YRS OR MORE [facility] Sep 19, 2020 09:00 AM VA-TOBACCO FORMER USER [facility] Sep 19, 2020 09:00 AM VA-TOBACCO QUIT 15 YRS OR MORE [facility] Dec 20, 2018 10:09 AM VA-TOBACCO FORMER USER [facility] Dec 20, 2018 10:09 AM VA-TOBACCO QUIT 15 YRS OR MORE [facility] Dec 07, 2017 09:12 AM FORMER TOBACCO USER 7Y OR GREATE R [facility] Apr 21, 2017 08:35 AM FORMER TOBACCO USER 7Y OR GREATE R [facility] Apr 28, 2016 08:20 AM FORMER TOBACCO USER 7Y OR GREATE R [facility] January 22, 2015 10:07 AM FORMER TOBACCO USER 7Y OR GREATE R [facility] January 25, 2014 10:11 AM FORMER TOBACCO USER 7Y OR GREATE R [facility] December 30, 2011 08:00 AM FORMER TOBACCO USER 7Y OR GREATE R [facility] January 21, 2011 01:16 PM FORMER TOBACCO USE >1Y <7Y [facility] Nov 27, 2009 08:09 AM FORMER TOBACCO USE >1Y <7Y [facility] Dec 27, 2008 12:32 AM FORMER TOBACCO USE >1Y <7Y [facility] January 03, 2008 12:52 PM FORMER TOBACCO USE >1Y <7Y [facility] January 11, 2007 10:43 AM FORMER TOBACCO USE >1Y <7Y [facility] Advance Directives: All historical and current Section Date Range: From patient's date of to the date document was created. This section includes ALL of a patient's completed or amended [place] Advance and Rescinded Directives. The entries below indicate that a directive exists for the patient, but an actual copy is not included with this document. The data comes from all [place] facilities. Date Advance Directives Provider Source Dec 04, 2009 CLINICAL WARNING [facility] Encounter Notes: All associated encounter notes This section contains the clinical notes associated to the Encounter. Date/Time Encounter Note(s) Provider Source Apr 05, 2025 08:28 AM ADMINISTRATIVE NOT E: LOCAL TITLE: AFTER VISIT SUMMARY NOTE STANDARD TITLE: ADMINISTRATIVE NOTE DICT DATE: APR 05, 2025@08:00 ENTRY DATE: APR 05, 2025@08:28:33 DICTATED BY: J LUIS PAUL EXP COSIGNER: URGENCY: STATUS: COMPLETED The patient was provided with a copy of an after-visit summary at the conclusion of the visit. A copy of the after-visit summary provided to the patient is available in [employer]. SCANNED DOCUMENT SIGNATURE NOT REQUIRED Electronically Filed: 04/05/2025 by: Toney Paul APRN, PEDAL ASSEMBLER Family Nurse Practitioner J LUIS PAUL [facility]
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
--- OUTSIDE RECORDS SUMMARY | 2025-04-16 03:30 | XMS_ITS | Encounter Summary ---
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 Eating, using tools, writing is very difficult. Shaving requires 2 hands (he doesn't want to use an electric shaver). Walking - limited by exertional tachycardia and dyspnea. Also having significant pain in the left buttock region (deep, bruis-like, but also sharp). Does not sound neuropathic. Wonder if bone or vascular related? REVIEW OF SYSTEMS: 10 system ROS was [...] APPLY 2 GRAMS TOPICALLY THREE TIMES ACTIVE (S) A DAY NEEDED FOR FOOT PAIN Indication: [...] OINT APPLY MODERATE AMOUNT TOPICALLY THREE ACTIVE (S) TIMES A DAY NEEDED FOR PAIN Indication: [...] CREAM APPLY THIN LAYER TOPICALLY DIRECTED ACTIVE (S) FOR DRY SKIN Indication: FOR DRY SKIN Pending Outpatient Medications Status 1) BUSPIRONE HCL 5MG TAB TAKE ONE TABLET BY MOUTH TWICE A DAY PENDING Indication: FOR MOOD 24 Total Medications MOVEMENT DISORDERS MEDICATIONS: Gabapentin 600mg bid 6AM, 6PM He estimates 50% reduction in tremor and neuropathy bedtime: 10PM ALLERGIES: PENICILLIN (May 15, 1994) SIMVASTATIN (Apr 01, 2006) LOBSTER (Jul 12, 2007) SCALLOPS (Jul 12, 2007) LISINOPRIL (Apr 03, 2008) METOPROLOL (Apr 03, 2008) FISH (Dec 04, 2009) CONTRAST MEDIA (Jul 06, 2022) ZOLPIDEM (Dec 20, 2023) TOPIRAMATE (January 03, 2024) PAST MEDICAL HISTORY: Active problems - Computerized Problem List is the source for the followin. Osteoarthritis (SNOMED CT 269907852) 2. Depression (SNOMED CT 52937280) 3. Posttraumatic stress disorder (SNOMED CT 20198266) 4. 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 Malignant tumor of [...] Tremor 23. Exposure to potentially hazardous substance ([facility] [id number]) - Entered through [facility] Documentation Initiative 24. 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 Chronic respiratory failure 27. Heart failure with normal ejection fraction 28. Pulmonary fibrosis 29. Chronic hypoxemic respiratory failure 30. Pulmonary emphysema - Group III FAMILY HISTORY: No tremors, Parkinson's or other neurological disorder. His mother lived to 92, and his father at 74 of laryngeal cancer. SOCIAL HISTORY: Recently , lost his of 56 years on 01/26/25 to stroke. 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 He now lives alone in a private home on [address] in [place]. Has one grown daughter. Service: [phone] with Agent Beltrami exposure. He was injured by morter rounds with traumatic brain injury, severe guardado and injuries to hands and arms, and he lost all of his teeth. He was hospitalized for at least 1 mouth. He had surgeries on his face, arm, and had to have all of his teeth pulled. [place] a farm in [facility] and likely had exposure to pesticides. PHYSICAL EXAMINATION: Temperature: 98 F [36.7 C] (04/16/2025 08:25) BP: 121/72 (04/16/2025 08:25) Pulse: 74 (04/16/2025 08:25) Respiration: 16 (04/16/2025 08:25) Weight: 162 lb [73.48 kg] (04/16/2025 08:25) Pain: 0 (04/05/2025 07:39) Pulse Oximetry: 94% (04/16/2025 08:25) Neurological exam: Alert and fully oriented with fluent speech and no dysarthria. Able to provide a detailed medical history. Well-nourished in no acute distress.Alert and oriented with fluent speech and no dysarthria, and able to provide an interval medical history.EOMI, face symmetric with equal activation. Rare right orbicularis oculi twitch. Intermittent right arm rest tremor early in the exam. Later in exam he has jerky tremor involving his trunk, head, that is myoclonic in nature and has not been seen on previous exams. Bilateral mild postural and kinetic tremors. Bradykinesia: Open-close fist movements: Mild RH, moderate-marked LH (early significant amp decrement) Mild increased tone UEs (left somewhat worse than right) Nearly absent right arm swing, R stride somewhat shorter than left, but also antalgic appearing gait related to left buttock (deep, bruise-like, but also sharp) pain. He has significant left him pain. Procedure: Botulinum toxin injection for treatment of [...] the injections without difficulty. Toxin Used: OnabotulinumtoxinA Lot#: [id number] Expiration Date: 11/2026 DATA: 01/17/2025 EMG/NCS: 1. Abnormal study. 2. 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 This has progressed compared to prior EMG from 2005. 3. There is no evidence of right L2-S2 radiculopathy. No evidence of fibular or tibial mononeuropathies on either side. LABS: 04/05/25 B12 387, MMA 350, Folate 2.8 (low), Iron 129, Iron Sat 49%, Ferritin high at 447.3. 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 Since his last visit he has lost his of 56 years and has had health decline with progressive exertional CP and SOB, fatigue, with worsening neuropathic pain, and on exam today he has had progression of tremors (increased postural/action tremors) and more prominent right arm rest tremor. HE also has new irregular, jerky tremor involving the trunk and head consistent with myoclonus, during parts of the exam. He also has increased bradykinesia and gait slowing with nearly absent R arm swing. He has had clear decline in general (cardiopulmonary symptoms undergoing evaluation) and neurologically since his last visit, now with new irregular, jerky trunck/head/neck movements consistent with myoclonus in addtion to essential tremor and mild parkinsonism (also worse since last visit). His right hemifacial spasm is well-controlled with botulinum toxin injections, with only mild intermittent right spasms on exam today. RECOMMENDATIONS: 1. Today we did repeat injections for your hemifacial spasm. Since you haven't had return of bothersome spasms since your last injection, we will plan on having you follow-up in 5-6 months, and consider repeat injections at that time. 2. For your tremor and neuropathy pain I recommend adding another dose of gabapentin dose midday and moving your evening dose closer to bedtime (to help your sleep that is disturbed by neuropathy) as follows: Take Gabapentin 600mg 1 tablet at 6AM, 1 tablet at 2-3PM, and 1 tablet at 8-9 PM (bedtime is typically at 10PM) 3. I am going to request a few more labs to evaluate for any reversible causes of neuropathy and for any reversible causes of your increased tremors and new myoclonus in the context of more generalized medical decline: SPEP with immunofixation, CLIFFORD with reflex, serum Paraneoplastic panel) 4. To see if we can help your right arm resting tremor, decreased right arm swing (parkinsonism), I recommend we start a trial of carbidopa/levodopa IR 25/100 as follows: Week 1 -start carbidopa/levodopa IR 25/100 ? tab three times daily as follows: 6AM 12PM 5-6PM carbidopa/levodopa IR 25/100 1/2 tab 1/2 tab 1/2 tab Week 2 -increase carbidopa/levodopa IR 25/100 to 1 tab three times daily 6AM 12PM 5-6PM carbidopa/levodopa IR 25/100 1 tab 1 tab 1 tab Possible side effects include upset stomach or lightheadedness. If you develop side effects, decrease to your last tolerated dose and call to report your symptoms 5. My nurse manager of case management will call to check on how you are responding to this medication in 4 weeks. 6. Follow-up in 3 months to follow up on these medication changes, and in 6 months for possible repeat injections. Shared decision making was utilized to discuss findings and develop treatment plan. Pt in agreement with above recommendations. 95 minutes was spent on the date of service reviewing records, evaluating the [place] [id number] in clinic, providing education and counseling to the [place], coordinating care (communicating with care team, entering orders, updating medical information in record), and documenting the encounter. /johana/ ALHAJI EUBANKS Physician Signed: 04/22/2025 15:26 Receipt Acknowledged By: * AWAITING SIGNATURE * LANCE LING ALHAJI EUBANKS [facility] Apr 16, 2025 08:40 AM NEUROLOGY ATTENDING NOTE: LOCAL TITLE: NEUROLOGY CLINIC NOTE STANDARD TITLE: NEUROLOGY ATTENDING NOTE DATE OF NOTE: APR 16, 2025@08:40 ENTRY DATE: APR 16, 2025@08:40:34 AUTHOR: ALHAJI EUBANKS EXP COSIGNER: URGENCY: STATUS: COMPLETED SUBJECT: MOVEMENT DISORDERS CLINIC FOLLOW-UP NOTE NEUROLOGY CLINIC NOTE Has ADDENDA MOVEMENT DISORDERS CLINIC FOLLOW-UP NOTE LAST VISIT: 12/11/2024 CHIEF COMPLAINT: Hemifacial spasm, essential tremor, neuropathy, parkinsonism with Agent Beltrami exposure Ross Iglesias is a 79-year-old man with right hemifacial spasm (orbicularis oculi only, 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 HISTORY OF PRESENT ILLNESS: Since his last visit Mr. Iglesias lost his of 56 years. She had a stroke 01/18 and 01/26. This has been very difficult, and he has had health decline with progressive chest pain and dyspnea on exertion, for which he has been undergoing evaluation. He has also had worsening of his tremors, now sometimes to tremors that seem to affect his whole body. He neuropathy pain also continues to worsening. He has has a new disabling deep left buttock pain that affects his walking. 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 THis had progressed since his last 2005 EMG-NCS. His neuropathy continues to be very painful(painful tingling and burning to the thighs, and into the hands and arms). Present all the time but gabapentin 600m bid does lessen. He is also prescribed lidocaine ointment, but still is very bothered by neuropathic pain. Botox injections were very helpful for his right hemifacial spasm with complete control of spasms. He has not noticed significant wearing off yet, with only rare twitching of the right eye at this point. Tremors - variable without a pattern. Most troublesome with fine motor coordinations. Eating, using tools, writing is very difficult. Shaving requires 2 hands (he doesn't want to use an electric shaver). Walking - limited by exertional tachycardia and dyspnea. Also having significant pain in the left buttock region (deep, bruis-like, but also sharp). Does not sound neuropathic. Wonder if bone or vascular related? REVIEW OF SYSTEMS: 10 system ROS was [...] APPLY 2 GRAMS TOPICALLY THREE TIMES ACTIVE (S) A DAY NEEDED FOR FOOT PAIN Indication: [...] OINT APPLY MODERATE AMOUNT TOPICALLY THREE ACTIVE (S) TIMES A DAY NEEDED FOR PAIN Indication: [...] CREAM APPLY THIN LAYER TOPICALLY DIRECTED ACTIVE (S) FOR DRY SKIN Indication: FOR DRY SKIN Pending Outpatient Medications Status 1) BUSPIRONE HCL 5MG TAB TAKE ONE TABLET BY MOUTH TWICE A DAY PENDING Indication: FOR MOOD 24 Total Medications MOVEMENT DISORDERS MEDICATIONS: Gabapentin 600mg bid 6AM, 6PM He estimates 50% reduction in tremor and neuropathy bedtime: 10PM ALLERGIES: PENICILLIN (May 15, 1994) SIMVASTATIN (Apr 01, 2006) LOBSTER (Jul 12, 2007) SCALLOPS (Jul 12, 2007) LISINOPRIL (Apr 03, 2008) METOPROLOL (Apr 03, 2008) FISH (Dec 04, 2009) CONTRAST MEDIA (Jul 06, 2022) ZOLPIDEM (Dec 20, 2023) TOPIRAMATE (January 03, 2024) PAST MEDICAL HISTORY: Active problems - Computerized Problem List is the source for the followin. Osteoarthritis (SNOMED CT 349524559) 2. Depression (SNOMED CT 16777447) 3. Posttraumatic stress disorder (SNOMED CT 16105668) 4. 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 Malignant tumor of [...] Tremor 23. Exposure to potentially hazardous substance ([facility] [id number]) - Entered through [facility] Documentation Initiative 24. 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 Chronic respiratory failure 27. Heart failure with normal ejection fraction 28. Pulmonary fibrosis 29. Chronic hypoxemic respiratory failure 30. Pulmonary emphysema - Group III FAMILY HISTORY: No tremors, Parkinson's or other neurological disorder. His mother lived to 92, and his father at 74 of laryngeal cancer. SOCIAL HISTORY: Recently , lost his of 56 years on 01/26/25 to stroke. 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 He now lives alone in a private home on [address] in [place]. Has one grown daughter. Service: [phone] with Agent Beltr[employer] exposure. He was injured by morter rounds with traumatic brain injury, severe guardado and injuries to hands and arms, and he lost all of his teeth. He was hospitalized for at least 1 mouth. He had surgeries on his face, arm, and had to have all of his teeth pulled. G[place] up [place] a farm in [facility] and likely had exposure to pesticides. PHYSICAL EXAMINATION: Temperature: 98 F [36.7 C] (04/16/2025 08:25) BP: 121/72 (04/16/2025 08:25) Pulse: 74 (04/16/2025 08:25) Respiration: 16 (04/16/2025 08:25) Weight: 162 lb [73.48 kg] (04/16/2025 08:25) Pain: 0 (04/05/2025 07:39) Pulse Oximetry: 94% (04/16/2025 08:25) Neurological exam: Alert and fully oriented with fluent speech and no dysarthria. Able to provide a detailed medical history. Well-nourished in no acute distress.Alert and oriented with fluent speech and no dysarthria, and able to provide an interval medical history.EOMI, face symmetric with equal activation. Rare right orbicularis oculi twitch. Intermittent right arm rest tremor early in the exam. Later in exam he has jerky tremor involving his trunk, head, that is myoclonic in nature and has not been seen on previous exams. Bilateral mild postural and kinetic tremors. Bradykinesia: Open-close fist movements: Mild RH, moderate-marked LH (early significant amp decrement) Mild increased tone UEs (left somewhat worse than right) Nearly absent right arm swing, R stride somewhat shorter than left, but also antalgic appearing gait related to left buttock (deep, bruise-like, but also sharp) pain. He has significant left him pain. Procedure: Botulinum toxin injection for treatment of [...] the injections without difficulty. Toxin Used: OnabotulinumtoxinA Lot#: [id number] Expiration Date: 11/2026 DATA: 01/17/2025 EMG/NCS: 1. Abnormal study. 2. 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 This has progressed compared to prior EMG from 2005. 3. There is no evidence of right L2-S2 radiculopathy. No evidence of fibular or tibial mononeuropathies on either side. LABS: 04/05/25 B12 387, MMA 350, Folate 2.8 (low), Iron 129, Iron Sat 49%, Ferritin high at 447.3. 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 Since his last visit he has lost his of 56 years and has had health decline with progressive exertional CP and SOB, fatigue, with worsening neuropathic pain, and on exam today he has had progression of tremors (increased postural/action tremors) and more prominent right arm rest tremor. HE also has new irregular, jerky tremor involving the trunk and head consistent with myoclonus, during parts of the exam. He also has increased bradykinesia and gait slowing with nearly absent R arm swing. He has had clear decline in general (cardiopulmonary symptoms undergoing evaluation) and neurologically since his last visit, now with new irregular, jerky trunck/head/neck movements consistent with myoclonus in addtion to essential tremor and mild parkinsonism (also worse since last visit). His right hemifacial spasm is well-controlled with botulinum toxin injections, with only mild intermittent right spasms on exam today. RECOMMENDATIONS: 1. Today we did repeat injections for your hemifacial spasm. Since you haven't had return of bothersome spasms since your last injection, we will plan on having you follow-up in 5-6 months, and consider repeat injections at that time. 2. For your tremor and neuropathy pain I recommend adding another dose of gabapentin dose midday and moving your evening dose closer to bedtime (to help your sleep that is disturbed by neuropathy) as follows: Take Gabapentin 600mg 1 tablet at 6AM, 1 tablet at 2-3PM, and 1 tablet at 8-9 PM (bedtime is typically at 10PM) 3. I am going to request a few more labs to evaluate for any reversible causes of neuropathy and for any reversible causes of your increased tremors and new myoclonus in the context of more generalized medical decline: SPEP with immunofixation, CLIFFORD with reflex, serum Paraneoplastic panel) 4. To see if we can help your right arm resting tremor, decreased right arm swing (parkinsonism), I recommend we start a trial of carbidopa/levodopa IR 25/100 as follows: Week 1 -start carbidopa/levodopa IR 25/100 ? tab three times daily as follows: 6AM 12PM 5-6PM carbidopa/levodopa IR 25/100 1/2 tab 1/2 tab 1/2 tab Week 2 -increase carbidopa/levodopa IR 25/100 to 1 tab three times daily 6AM 12PM 5-6PM carbidopa/levodopa IR 25/100 1 tab 1 tab 1 tab Possible side effects include upset stomach or lightheadedness. If you develop side effects, decrease to your last tolerated dose and call to report your symptoms 5. My nurse manager of case management will call to check on how you are responding to this medication in 4 weeks. 6. Follow-up in 3 months to follow up on these medication changes, and in 6 months for possible repeat injections. Shared decision making was utilized to discuss findings and develop treatment plan. Pt in agreement with above recommendations. 95 minutes was spent on the date of service reviewing records, evaluating the [id number] in clinic, providing education and counseling to the , coordinating care (communicating with care team, entering orders, updating medical information in record), and documenting the encounter. /johana/ ALHAJI EUBANKS Physician Signed: 04/22/2025 15:26 Receipt Acknowledged By: 04/23/2025 13:12 /johana/ LANCE LING RN LANCE LING RN 04/22/2025 ADDENDUM STATUS: COMPLETED Upon review of creatinine/GFR 2.0/[address] Paul on whether any further optimization of gabapentin or alternative neuropathic pain treatment is possible. We could consider referral to Neurorehab for eval/treat of painful neuropathy/parkinsonism/tremor once he has completed his cardiopulmonary evaluation /johana/ ALHAJI EUBANKS Physician Signed: 04/22/2025 15:39 Receipt Acknowledged By: 04/23/2025 11:27 /johana/ Toney Paul APRN, JANELLE Family Nurse Practitioner 04/23/2025 ADDENDUM STATUS: COMPLETED (Immediate-release) Renal impairment, in patients 12 years or older: CrCl greater than 30 to 59 mL/min, 400 to 1400 mg/day given in 2 divided doses. With his renal function, 3 tablets of gabapentin per day would likely be more than recommended and could accumulate over time possibly causing some sedation or dizziness. Would recommend twice daily dosing of the gabapentin regimen. Folic acid was a bit low and we could try supplementing with a daily folic acid tab. It is difficult to say, but could possibly help his neuropathy symptoms if it were a contributing etiology. FOLATE 2.8 L ng/mL Ref: >=7.0 [618] Test name Result units Ref. range Site Code HOMOCYSTEINE 37.9 H umol/L 5.1 - 15.4 [618] Medication: FOLIC ACID TAB 1MG Instructions: 1MG ORALLY QDAY Sig: TAKE ONE TABLET BY MOUTH EVERY DAY Days Supply: 90 Quantity: 90 Refills: 3 Steel Grinder: MAIL Priority: ROUTINE Indication: FOR FOLIC ACID SUPPLEMENT Additional options are limited. A low-dose HS TCA (nortriptyline 10 Mg) could be considered although he is already on substantial antidepressant (SSRI) and BuSpar under the treatment of psychiatry. His advanced age and concern for side effects would be a consideration with a TCA. Miguel Angel, please notify about gabapentin dosing and the folic acid supplemet. Thanks /es/ Toney Paul APRN, BRAILLE OPERATOR Family Nurse Practitioner Signed: 04/23/2025 11:43 Receipt Acknowledged By: 04/23/2025 12:18 /es/ MIGUEL ANGEL GRANT RN PACT NURSE * AWAITING SIGNATURE * ALHAJI EUBANKS 04/23/2025 ADDENDUM STATUS: COMPLETED Discussed above with pt. He verbalized understanding and agreement to plan. Continue gabapentin as prescribed, start folic acid supplement and observe response. /es/ MIGUEL ANGEL GRANT RN PACT NURSE Signed: 04/23/2025 12:19 ALHAJI EUBANKS [facility] Apr 16, 2025 08:26 AM NEUROLOGY NURSING OUTPATIENT NOTE: LOCAL TITLE: NEUROLOGY CLINIC NURSING NOTE STANDARD TITLE: NEUROLOGY NURSING OUTPATIENT NOTE DATE OF NOTE: APR 16, 2025@08:26 ENTRY DATE: APR 16, 2025@08:26:36 AUTHOR: MERYL VILLAFUERTE EXP COSIGNER: URGENCY: STATUS: COMPLETED Type of visit: Appointment Check In Reason for Visit: RTC Vital Signs: Blood Pressure: 121/72 (04/16/2025 08:25) Pulse: 74 (04/16/2025 08:25) Respiration: 16 (04/16/2025 08:25) Temperature: 98 F [36.7 C] (04/16/2025 08:25) Weight: 162 lb [73.48 kg] (04/16/2025 08:25) Height: 65 in [165.1 cm] (04/05/2025 07:39) BMI: 27.0 Pain: 0 (04/05/2025 07:39) Allergies: PENICILLIN (May 15, 1994) SIMVASTATIN (Apr [...] APPLY 2 GRAMS TOPICALLY THREE TIMES ACTIVE (S) A DAY NEEDED FOR FOOT PAIN Indication: [...] OINT APPLY MODERATE AMOUNT TOPICALLY THREE ACTIVE (S) TIMES A DAY NEEDED FOR PAIN Indication: [...] CREAM APPLY THIN LAYER TOPICALLY DIRECTED ACTIVE (S) FOR DRY SKIN Indication: FOR DRY SKIN Pending Outpatient Medications Status 1) BUSPIRONE HCL 5MG TAB TAKE ONE TABLET BY MOUTH TWICE A DAY PENDING Indication: FOR MOOD 24 Total Medications Patient reports the following changes regarding the current pharmacy list of medications: * Medications reviewed with [place], including active, pending VA medications, VA medications that or were discontinued within the last 90 days non-va medications (prescribed outside of the [facility] system), remote medications (prescribed at other OR facilities)and any herbal, [id number] or alternative health product. Reviewed Veterans ability to take medications correctly and safely. reports independence with taking medications as prescribed reports no adverse reactions with medications A copy of the above medication list given to the provider for review and update. Provider will give printed copy of medication list to patient with any changes documented on printed medication list. /johana/ MERYL VILLAFUERTE LPN LPN Signed: 04/16/2025 08:27 MERYL VILLAFUERTE [facility]
--- OUTSIDE RECORDS SUMMARY | 2025-04-25 01:12 | XMS_ITS | Continuity of Care Document ---
Author Name [facility] Organization [facility] Care Team Providers Care Traffic Personnel Supervisor Name Role Phone [facility] Unavailable Unavailable Problems Combined list of problems from Department of Defense and Veterans Affairs facilities. It does not include entries that were removed or entered in error. Problem Status Onset Date Problem Type Date of Resolution Comments Source Exposure to potentially hazardous substance (SCT [id number]) Active 11/04/19 24 Condition Nov 04, 2023 Entered By: ZANE WOODWARD Comment: [facility] Documentation Initiative [facility] Coronary artery disease Active 08/30/19 04 Condition [...] 2019 Stress Thalium: 1. No ischemia demonstrated. [facility] History of venous thrombosis Active 08/30/18 78 Condition Apr 25, 2018 Entered By: ANJEL DUONG Comment: H/O provoked LE DVT in 1977.Jan 31, 2020 Entered By: ANJEL DUONG Comment: Recurrent unprovoked DVT in 1986.Jan 31, 2020 Entered By: ANJEL DUONG Comment: H/O unprovoked right leg DVT in 2019 [facility] Benign prostatic hyperplasia with outflow obstruction Active Condition [facility] Chronic hypoxemic respiratory failure Active Condition [facility] Chronic respiratory failure Active Condition [facility] Chronic rhinitis Active Condition [facility] COPD - Chronic obstructive pulmonary disease Active Condition Apr 25 18 Entered By: ANJEL DUONG Comment: FEV1/FVC (2009) 2.00/3.13. FEV1 70% pred. FEV1% 64.Feb 20, 2023 Entered By: CHERI PRATT Comment: Moderatre COPD [facility] Depression (SNOMED CT 35710232) Active Condition [facility] Ex-tobacco user Active Condition Feb 20, 2023 Entered By: CHERI PRATT Comment: Quit 2003, 15 pack year hx [facility] Hearing loss Active Condition [facility] Heart failure with normal ejection fraction Active Condition 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 [facility] History of adenomatous polyp of colon Active Condition [facility] History of malignant neoplasm of skin excluding melanoma Active Condition Apr 22, 2018 Entered By: ANJEL DUONG Comment: H/O recurrent non-melanoma skin cancers [facility] Hyperlipidemia Active Condition [facility] Hypertension [facility] Hypoxic Active Condition Feb 20 Entered By: CHERI PRATT Comment: Chronic 78 - 85% RA [facility] Long-term current use of anticoagulant Active Condition [facility] Malignant tumor of oropharynx Active Condition Oct 23, 2013 Entered By: MARI CLITFON Comment: 1978 [facility] Myoclonus Active Condition [facility] Osteoarthritis (SNOMED CT [id number]) Active Condition [facility] Parkinsonism Active Condition [facility] Peripheral neuropathy Active Condition [facility] Posttraumatic stress disorder (SNOMED CT [id number]) Active Condition [facility] Preglau/Glauc Suspect Active Condition [facility] Pulmonary emphysema Active Condition May 31, 2024 Entered By: CHERI PRATT Comment: Group III [facility] Pulmonary fibrosis Active Condition [facility] Pulmonary hypertension Active Condition Feb 20, 2023 Entered By: CHERI PRATT Comment: MildJun 2022 Entered By: CHERI PRATT Comment: 11/19 Echo [facility] Syncope Active Condition [facility] Tremor Active Condition [facility] Depression, Unspec Inactive Condition 01/03/2008 [facility] Gynecomastia * (ICD-9-CM 611.1) Inactive Condition 01/03/2008 [facility] Pneumonia, organism unspecified (ICD-9-CM 486.) Inactive Condition 11/09/2012 [facility] Diagnosis: ICD-10-CM G51.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, right Active Diagnosis [facility] Diagnosis: ICD-10-CM F43.12 Post-traumatic stress disorder, chronic Active Diagnosis [facility] Diagnosis: ICD-10-CM I25.10 Athscl heart disease of zuni coronary artery w/o ang pctrs Active Diagnosis [facility] Diagnosis: ICD-10-CM G62.9 Polyneuropathy, unspecified Active Diagnosis [facility] Diagnosis: ICD-10-CM H40.1132 Primary open-angle glaucoma, bilateral, moderate stage Active Diagnosis [facility] Diagnosis: ICD-10-CM H40.10X2 Unspecified open-angle glaucoma, moderate stage Active Diagnosis [facility] Diagnosis: ICD-10-CM Z51.81 Encounter for therapeutic drug level monitoring Active Diagnosis [facility] Diagnosis: ICD-10-CM G20.C Parkinsonism, unspecified Active Diagnosis [facility] Diagnosis: ICD-10-CM I50.9 Heart failure, unspecified Active Diagnosis [facility] Diagnosis: ICD-10-CM Z79.01 retirement (current) use of anticoagulants Active Diagnosis [facility] Diagnosis: ICD-10-CM F33.8 Other recurrent depressive disorders Active Diagnosis [facility] Diagnosis: ICD-10-CM D17.1 Benign lipomatous neoplasm of skin, subcu of trunk Active Diagnosis [facility] Diagnosis: ICD-10-CM Z13.89 Encounter for screening for other disorder Active Diagnosis [facility] Diagnosis: ICD-10-CM G90.09 Other idiopathic peripheral autonomic neuropathy Active Diagnosis [facility] Diagnosis: ICD-10-CM K08.109 Complete loss of teeth, unspecified cause, unspecified class Active Diagnosis [facility] Diagnosis: ICD-10-CM J44.9 Chronic obstructive pulmonary disease, unspecified Active Diagnosis [facility] Diagnosis: ICD-10-CM S46.011A Strain of musc/tend the rotator cuff of right shoulder, init Active Diagnosis [facility] Diagnosis: ICD-10-CM I10 Essential (primary) hypertension Active Diagnosis [facility] Diagnosis: ICD-10-CM Z13.9 Encounter for screening, unspecified Active Diagnosis [facility] Diagnosis: ICD-10-CM I27.20 Pulmonary hypertension, unspecified Active Diagnosis [facility] Diagnosis: ICD-10-CM R60.0 Localized edema Active Diagnosis [facility] Diagnosis: ICD-10-CM R06.02 Shortness of breath Active Diagnosis [facility] Diagnosis: ICD-10-CM G25.0 Essential tremor Active Diagnosis [facility] Diagnosis: ICD-10-CM I50.21 Acute systolic (congestive) heart failure Active Diagnosis [facility] Diagnosis: ICD-10-CM Z86.010 Personal history of colonic polyps Active [facility] Diagnosis: ICD-10-CM G47.33 Obstructive sleep apnea (adult) (pediatric) Active Diagnosis [facility] Diagnosis: ICD-10-CM H90.3 Sensorineural hearing loss, bilateral Active Diagnosis [facility] Medications Combined list of outpatient medications from Department of Defense and [facility] facilities.Medications provided include 1) outpatient medications from the last 15 months, and 2) patient-reported medications. Medication Details Route Status Patient Instructions Prescription Expires Prescription Number Last Dispense Date Ordering Provider Order Date Order Qty Source ALBUTEROL 90MCG/ACTUA T (CFC-F) INHL,ORAL,8 .5GM DOSE COUNTER INHALE 2 PUFFS BY INHALATI ON EVERY 4 HOURS NEEDED FOR SHORTNES S OF BREATH RESPIR ATORY (INHAL ATION) ACTIVE 11/11/2025 [id number] 5 MASHAVERÓNICA 2024 2 [facility] ATORVASTATI N CA 40MG TAB TAKE ONE TABLET BY MOUTH EVERY DAY FOR CHOLESTE ROL ORAL SUSPEND ED 04/06/2026 [id number] 5 MASHAVERÓNICA 2024 90 [facility] ATORVASTATI N CA 40MG TAB TAKE ONE TABLET BY MOUTH EVERY DAY FOR CHOLESTE ROL ORAL DISCONT INUED 09/30/2025 [id number] 5 VERÓNICA PRATT ER 2024 90 [facility] ATORVASTATI N CA 40MG TAB TAKE ONE TABLET BY MOUTH EVERY DAY FOR CHOLESTE ROL ORAL DISCONT INUED 10/11/2024 [id number] 5 VERÓNICA PRATT 2023 90 [facility] BRIMONIDINE TARTRATE 0.2% SOLN,OPH INSTILL 1 DROP IN BOTH EYES TWICE A DAY FOR GLAUCOMA SPACE 10 MINUTES APART FROM OTHER EYE DROPS OPHTHA LMIC ACTIVE 01/17/2026 [id number] 5 OCTAVIANO GREENE 2024 10 [facility] BRIMONIDINE TARTRATE 0.2% SOLN,OPH INSTILL 1 DROP IN BOTH EYES TWICE A DAY FOR GLAUCOMA SPACE 10 MINUTES APART FROM OTHER EYE DROPS OPHTHA LMIC DISCONT INUED 07/15/2025 [id number] 5 OCTAVIANO GREENE J 2023 10 [facility] BRIMONIDINE TARTRATE 0.2% SOLN,OPH INSTILL 1 DROP IN BOTH EYES TWICE A DAY FOR GLAUCOMA SPACE 10 MINUTES APART FROM OTHER EYE DROPS OPHTHA LMIC DISCONT INUED 03/18/2024 [id number] 4 COLLIN BRADLEY 2022 10 [facility] [facility] BUSPIRONE HCL 5MG TAB TAKE ONE TABLET BY MOUTH TWICE A DAY FOR MOOD ORAL SUSPEND ED 04/16/2026 [id number] 5 IDALIA HALEY 2024 180 [facility] BUSPIRONE HCL 5MG TAB TAKE ONE TABLET BY MOUTH TWICE A DAY FOR MOOD ORAL DISCONT INUED 10/02/2025 [id number] IDALIA HALEY B 2024 180 [facility] CALCIUM CARBONATE 650MG TAB TAKE ONE TABLET BY MOUTH EVERY DAY ORAL SUSPEND ED 04/06/2026 [id number] 5 VERÓNICA PRATT 2024 90 [facility] CALCIUM CARBONATE 650MG TAB TAKE ONE TABLET BY MOUTH EVERY DAY ORAL DISCONT INUED 10/06/2025 [id number] 5 VERÓNICA PRATT 2024 90 [facility] CALCIUM CARBONATE 650MG TAB TAKE ONE TABLET BY MOUTH EVERY DAY ORAL DISCONT INUED 03/14/2025 [id number] 4 VERÓNICA PRATT 2023 90 [facility] CALCIUM CARBONATE 650MG TAB TAKE ONE TABLET BY MOUTH EVERY DAY ORAL DISCONT INUED 10/11/2024 [id number] 4 VERÓNICA PRATT 2023 90 [facility] CARBIDOPA 25MG/LEVODO PA 100MG TAB TAKE ONE-HALF TABLET BY MOUTH THREE TIMES A DAY FOR 7 DAYS, THEN TAKE 1 TABLET THREE TIMES A DAY FOR 23 DAYS FOR PARKINSO N DISEASE TAKE AT 6AM, 12PM, 5-6 PM ORAL ACTIVE 05/22/2025 [id number] 5 Yessy EUBANKS 2024 80 [facility] CARBOXYMETH YLCELLULOSE NA 0.25% SOLN,OPH INSTILL 2 DROPS IN OPERATIV E EYE EVERY 2 HOURS NEEDED FOR DRY EYES OPHTHA LMIC ACTIVE 01/17/2026 [id number] 5 OCTAVIANO GREENE 2024 30 [facility] CARBOXYMETH YLCELLULOSE NA 0.25% SOLN,OPH INSTILL 2 DROPS IN OPERATIV E EYE EVERY 2 HOURS NEEDED FOR DRY EYES OPHTHA LMIC DISCONT INUED 10/06/2025 [id number] 5 VERÓNICA PRATT 2024 30 [facility] CARBOXYMETH YLCELLULOSE NA 0.25% SOLN,OPH INSTILL 2 DROPS IN OPERATIV E EYE EVERY 2 HOURS NEEDED FOR DRY EYES OPHTHA LMIC DISCONT INUED 07/19/2025 [id number] 5 VERÓNICA PRATT 2023 30 [facility] CARBOXYMETH YLCELLULOSE NA 0.25% SOLN,OPH INSTILL 2 DROPS IN OPERATIV E EYE EVERY 2 HOURS NEEDED FOR DRY EYES OPHTHA LMIC DISCONT INUED 04/07/2025 [id number] 4 VERÓNICA PRATT 2023 30 [facility] CHOLECALCIF BELA 25MCG (1,000UNIT) TAB TAKE ONE TABLET BY MOUTH EVERY DAY ORAL SUSPEND ED 04/06/2026 [id number] 5 VERÓNICA PRATT 2024 100 [facility] CHOLECALCIF BELA 25MCG (1,000UNIT) TAB TAKE ONE TABLET BY MOUTH EVERY DAY ORAL DISCONT INUED 10/06/2025 [id number] 5 VERÓNICA PRATT 2024 100 [facility] CHOLECALCIF BELA 25MCG (1,000UNIT) TAB TAKE ONE TABLET BY MOUTH EVERY DAY ORAL DISCONT INUED 10/11/2024 [id number] 4 VERÓNICA PRATT 2023 100 [facility] CYANOCOBALA MIN 500MCG TAB TAKE ONE TABLET BY MOUTH EVERY DAY FOR B12 SUPPLEME NT ORAL SUSPEND ED 09/12/2025 [id number] 5 VERÓNICA PRATT 2024 100 [facility] DICLOFENAC NA 1% GEL,TOP APPLY 2 GRAMS TOPICALL Y THREE TIMES A DAY NEEDED FOR FOOT PAIN TOPICA L ACTIVE 04/06/2026 [id number] 5 VERÓNICA PRATT 2024 200 [facility] DICLOFENAC NA 1% GEL,TOP APPLY 2 GRAMS TOPICALL Y THREE TIMES A DAY NEEDED FOR FOOT PAIN TOPICA L DISCONT INUED 01/13/2026 [id number] 5 VERÓNICA PRATT 2024 200 [facility] DICLOFE[facility] NA 1% GEL,TOP APPLY 2 GRAMS TOPICALL Y THREE TIMES A DAY NEEDED FOOT PAIN TOPICA L DISCONT INUED (EDIT) 10/06/2025 [id number] 5 VERÓNICA PRATT 2024 100 [facility] DICLOFENAC NA 1% GEL,TOP APPLY 2 GRAMS TOPICALL Y THREE TIMES A DAY NEEDED FOOT PAIN TOPICA L DISCONT INUED 03/24/2025 [id number] 4 Tiffany CHAVARRIA 2023 100 [place] [facility] DICLOFENAC NA 1% GEL,TOP APPLY 2 GRAMS TOPICALL Y THREE TIMES A DAY NEEDED FOOT PAIN TOPICA L DISCONT INUED 12/23/2024 [id number] 4 Tiffany CHAVARRIA 2023 100 [facility] [facility] FLUTICASONE 500MCG/SALM ETEROL 50MCG INHL,ORAL,D ISKUS,60 INHALE 1 PUFF BY INHALATI ON TWICE A DAY FOR COPD *RINSE MOUTH AFTER EACH USE* RESPIR ATORY (INHAL ATION) SUSPEND ED 04/06/2026 [id number] 5 VERÓNICA PRATT ER 2024 3 [facility] FLUTICASONE 500MCG/SALM ETEROL 50MCG INHL,ORAL,D ISKUS,60 INHALE 1 PUFF BY INHALATI ON TWICE A DAY FOR COPD *RINSE MOUTH AFTER EACH USE* RESPIR ATORY (INHAL ATION) DISCONT INUED 10/06/2025 [id number] 5 VERÓNICA PRATT 2024 3 [facility] FLUTICASONE 500MCG/SALM ETEROL 50MCG INHL,ORAL,D ISKUS,60 INHALE 1 PUFF BY INHALATI ON TWICE A DAY FOR COPD *RINSE MOUTH AFTER EACH USE* RESPIR ATORY (INHAL ATION) DISCONT INUED 10/11/2024 [id number] 4 VERÓNICA PRATT 2023 3 [facility] FLUTICASONE PROPIONATE 50MCG/SPRAY SOLN,NASAL, 16GM SPRAY 2 SPRAYS IN EACH NOSTRIL EVERY DAY FOR CONGESTI ON NASAL SUSPEND ED 10/06/2025 [id number] 5 VERÓNICA PRATT 2024 3 [facility] FLUTICASONE PROPIONATE 50MCG/SPRAY SOLN,NASAL, 16GM SPRAY 2 SPRAYS IN EACH NOSTRIL EVERY DAY FOR CONGESTI ON NASAL DISCONT INUED 04/07/2025 [id number] 5 VERÓNICA PRATT 2023 3 [facility] [facility] FLUTICASONE PROPIONATE 50MCG/SPRAY SOLN,NASAL, 16GM SPRAY 2 SPRAYS IN EACH NOSTRIL EVERY DAY FOR CONGESTI ON NASAL DISCONT INUED 10/11/2024 [id number] 4 VERÓNICA PRATT 2023 3 [facility] FOLIC ACID 1MG TAB TAKE ONE TABLET BY MOUTH EVERY DAY FOR FOLIC ACID SUPPLEME NT ORAL ACTIVE 04/24/2026 [id number] 5 VERÓNICA PRATT 2024 90 [facility] FUROSEMIDE 40MG TAB TAKE ONE TABLET BY MOUTH EVERY DAY FOR EXCESS FLUID ORAL DISCONT INUED BY PROVIDE R 04/18/2024 [id number] 4 SHRUTHI RODRIGUEZ 2023 8 [facility] GABAPENTIN 300MG CAP TAKE TWO CAPSULES BY MOUTH TWICE A DAY FOR NERVE PAIN IN HANDS ORAL DISCONT INUED (EDIT) 10/11/2024 [id number] 4 VERÓNICA PRATT 2023 360 [facility] GABAPENTIN 600MG TAB TAKE ONE TABLET BY MOUTH TWICE A DAY FOR PAIN AND NUMBNESS ORAL ACTIVE 04/06/2026 [id number] 5 MASHAVERÓNICA 2024 180 [facility] GABAPENTIN 600MG TAB TAKE ONE TABLET BY MOUTH TWICE A DAY FOR PAIN AND NUMBNESS ORAL DISCONT INUED 10/06/2025 [id number] 5 MASHAVERÓNICA 2024 180 [facility] GABAPENTIN 600MG TAB TAKE ONE TABLET BY MOUTH TWICE A DAY FOR PAIN AND NUMBNESS ORAL DISCONT INUED 06/01/2025 [id number] 4 MASHAVERÓNICA 2023 180 [facility] GUAIFENESIN 200MG TAB TAKE ONE TABLET BY MOUTH THREE TIMES A DAY NEEDED FOR PHLEM ORAL ACTIVE 04/06/2026 [id number] 5 MASHAVERÓNICA 2024 100 [facility] GUAIFENESIN 200MG TAB TAKE ONE TABLET BY MOUTH THREE TIMES A DAY NEEDED FOR PHLEM ORAL DISCONT INUED 10/06/2025 [id number] 5 MASHAVERÓNICA 2024 100 [facility] HYDROCHLORO THIAZIDE 25MG TAB TAKE ONE TABLET BY MOUTH EVERY DAY FOR BLOOD PRESSURE NEW STRENGTH ORAL DISCONT INUED BY PROVIDE R 04/07/2025 [id number] 4 [facility] 2023 90 [place] [facility] HYDROCHLORO THIAZIDE 25MG TAB TAKE ONE TABLET BY MOUTH EVERY DAY FOR BLOOD PRESSURE NEW STRENGTH ORAL DISCONT INUED 10/11/2024 [id number] [facility] 2023 90 [place] [facility] LIDOCAINE 5% OINT,TOP APPLY MODERATE AMOUNT TOPICALL Y THREE TIMES A DAY NEEDED FOR PAIN TOPICA L ACTIVE 04/06/2026 [id number] 5 [facility] 2024 210 [place] [facility] LIDOCAINE 5% OINT,TOP APPLY MODERATE AMOUNT TOPICALL Y THREE TIMES A DAY NEEDED FOR PAIN TOPICA L DISCONT INUED (EDIT) 09/12/2025 [id number] 5 [facility] 2024 105 [place] [facility] LIDOCAINE 5% OINT,TOP APPLY MODERATE AMOUNT TOPICALL Y THREE TIMES A DAY NEEDED FOR PAIN TOPICA L DISCONT INUED 04/07/2025 [id number] 4 [facility] 2023 105 [place] [facility] LIDOCAINE 5% PATCH APPLY 1 PATCH TOPICALL Y EVERY DAY NEEDED FOR UP TO 12 HOURS FOR PAIN TOPICA L ACTIVE 02/16/2026 [id number] 5 [facility] 2024 30 [place] [facility] LIDOCAINE 5% PATCH APPLY 1 PATCH TOPICALL Y EVERY DAY NEEDED TOPICA L DISCONT INUED 09/12/2025 [id number] 5 [facility] 2024 30 [place] [facility] LIDOCAINE 5% PATCH APPLY 1 PATCH TOPICALL Y EVERY DAY NEEDED TOPICA L DISCONT INUED 04/07/2025 [id number] 4 [facility] 2023 30 [place] [facility] NITROGLYCER IN 0.4MG TAB,SUBLING UAL DISSOLVE ONE TABLET UNDER THE TONGUE EVERY 5 MINUTES FOR UP TO 3 DOSES IF NEEDED FOR CHEST PAIN SUBLIN GUAL ACTIVE 04/06/2026 [id number] 5 [facility] 2024 100 [place] [facility] POTASSIUM CHLORIDE 20MEQ TAB,SA (DISPERSIBL E) TAKE ONE TABLET BY MOUTH EVERY DAY FOR ERMA [place] SUPPLEME NT ORAL ACTIVE 04/06/2026 [id number] 5 [facility] 2024 90 [place] [facility] POTASSIUM CHLORIDE 20MEQ TAB,SA (DISPERSIBL E) TAKE ONE TABLET BY MOUTH EVERY DAY FOR ERMA [place] SUPPLEME NT ORAL DISCONT INUED 10/06/2025 [id number] 5 [facility] 2024 90 [place] [facility] POTASSIUM CHLORIDE 20MEQ TAB,SA (DISPERSIBL E) TAKE ONE TABLET BY MOUTH EVERY DAY FOR ERMA [place] SUPPLEME NT ORAL DISCONT INUED 06/01/2025 [id number] 4 [facility] 2023 90 [place] [facility] RIVAROXABAN 20MG TAB TAKE ONE TABLET BY MOUTH EVERY DAY WITH THE LARGEST MEAL OF THE DAY TO TREAT AND/OR PREVENT BLOOD CLOTS ORAL SUSPEND ED 01/12/2026 [id number] 5 Jovi DE LEON S 2024 90 [place] [facility] RIVAROXABAN 20MG TAB TAKE ONE TABLET BY MOUTH EVERY DAY WITH THE LARGEST MEAL OF THE DAY TO TREAT AND/OR PREVENT BLOOD CLOTS ORAL DISCONT INUED 03/01/2025 [id number] 5 Jovi DE LEON S 2023 90 [place] [facility] SERTRALINE HCL 100MG TAB TAKE TWO TABLETS BY MOUTH EVERY DAY FOR DEPRESSI ON and PTSD ORAL SUSPEND ED 02/16/2026 [id number] 5 IDALIA HALEY 2024 180 [place] [facility] SERTRALINE HCL 100MG TAB TAKE TWO TABLETS BY MOUTH EVERY DAY FOR DEPRESSI ON and PTSD ORAL DISCONT INUED 06/05/2025 [id number] 5 IDALIA HALEY B 2023 180 [place] [facility] TELMISARTAN 20MG TAB TAKE ONE TABLET BY MOUTH EVERY DAY FOR BLOOD PRESSURE ORAL SUSPEND ED 04/06/2026 [id number] 5 VERÓNICA PRATT 2024 90 [place] [facility] TELMISARTAN 20MG TAB TAKE ONE TABLET BY MOUTH EVERY DAY FOR BLOOD PRESSURE ORAL DISCONT INUED 08/26/2025 [id number] 5 VERÓNICA PRATT 2023 90 [place] [facility] TELMISARTAN 20MG TAB TAKE ONE TABLET BY MOUTH EVERY DAY FOR BLOOD PRESSURE ORAL DISCONT INUED (EDIT) 05/10/2025 [id number] 4 VERÓNICA PRATT 2023 30 [place] [facility] TIOTROPIUM 2.5MCG/ACTU AT INHL,ORAL,6 0D,4GM INHALE TWO PUFFS BY INHALATI ON EVERY DAY FOR COPD RESPIR ATORY (INHAL ATION) ACTIVE 04/06/2026 [id number] 5 VERÓNICA PRATT 2024 3 [place] [facility] TIOTROPIUM 2.5MCG/ACTU AT INHL,ORAL,6 0D,4GM INHALE TWO PUFFS BY INHALATI ON EVERY DAY FOR COPD RESPIR ATORY (INHAL ATION) DISCONT INUED 11/11/2025 [id number] 5 VERÓNICA PRATT 2024 3 [facility] [facility] TIOTROPIUM 2.5MCG/ACTU AT INHL,ORAL,6 0D,4GM INHALE TWO PUFFS BY INHALATI ON EVERY DAY FOR COPD RESPIR ATORY (INHAL ATION) DISCONT INUED 10/11/2024 [id number] 4 VERÓNICA PRATT 2023 3 [facility] TORSEMIDE 20MG TAB TAKE ONE TABLET BY MOUTH EVERY DAY FOR EXCESS FLUID ORAL SUSPEND ED 04/06/2026 [id number] 5 VERÓNICA PRATT 2024 90 [place] [facility] TORSEMIDE 20MG TAB TAKE ONE TABLET BY MOUTH EVERY DAY FOR EXCESS FLUID ORAL DISCONT INUED 10/06/2025 [id number] 5 [facility], VERÓNICA ER 2024 90 [facility] TORSEMIDE 20MG TAB TAKE ONE TABLET BY MOUTH EVERY DAY FOR EXCESS FLUID ORAL DISCONT INUED (EDIT) 09/12/2025 [id number] 5 [facility], [facility] 2024 30 [facility] TORSEMIDE 20MG TAB TAKE ONE TABLET BY MOUTH EVERY DAY FOR EXCESS FLUID ORAL DISCONT INUED 04/07/2025 [id number] [place], [facility] 2023 30 [facility] VANICREAM APPLY THIN LAYER TOPICALL Y DIRECTED FOR DRY SKIN TOPICA L ACTIVE 04/06/2026 [id number] 5 [facility], [facility] 2024 454 [facility] VANICREAM APPLY THIN LAYER TOPICALL Y DIRECTED FOR DRY SKIN TOPICA L DISCONT INUED 12/12/2025 [id number] 5 [facility] 2024 454 [facility] VANICREAM APPLY THIN LAYER TOPICALL Y DIRECTED FOR DRY SKIN TOPICA L DISCONT INUED 09/12/2025 [id number] 5 [facility] 2024 454 [facility] VANICREAM APPLY THIN LAYER TOPICALL Y DIRECTED FOR DRY SKIN TOPICA L DISCONT INUED 05/10/2025 [id number] 4 [facility] 2023 454 [facility] Allergies, Adverse Reactions, Alerts Combined list of allergies from Department of Defense and Veterans Affairs facilities. It does not include entries that were removed or entered in error. Substance Category Reaction Severity Reaction type Status Date Reported Comments Source CONTRAST MEDIA Propensity to adverse reactions to drug (finding) Eruption active 2 [place] [facility] FISH Propensity to adverse reactions to substance (finding) active 0 [facility] LISINOPRIL Propensity to adverse reactions to drug (finding) Hyperkalemi a active 8 [facility] LOBSTER Propensity to adverse reactions to food (finding) Nausea and vomiting active 7 [facility] METOPROLOL Propensity to adverse reactions to drug (finding) Bradycardia active 8 [facility] PENICILLIN Propensity to adverse reactions to drug (finding) HIVES active 4 [facility] SCALLOPS Propensity to adverse reactions to substance (finding) Nausea and vomiting active 7 [facility] SIMVASTATIN Propensity to adverse reactions to drug (finding) Itching, Facial swelling active 6 [facility] TOPIRAMATE Propensity to adverse reactions to drug (finding) Syncope active 4 [facility] ZOLPIDEM Propensity to adverse reactions to drug (finding) Disorientat ed active 4 [facility] Immunizations Combined list of available immunizations from the Department of Defense and Veterans Affairs facilities. Immunization Series Date Given Administered By Site Reaction Lot Number CVX Code Drug Casting And Pasting Supervisor Status Comments Source COVID-19 ([employer]), MRNA, LNP-S, PF, CHERYL-SUCROSE, 30 MCG/0.3 ML (AGES 12+ YEARS) 2024 MITCH TOVAR M RIGHT DELTO ID [id number] 309 complet ed [facility] RSV, BIVALENT, PROTEIN SUBUNIT RSVPREF, DILUENT RECONSTITUTED , 0.5 ML, PF 2024 MITCH TOVAR M LEFT DELTO ID [id number] 305 complet ed [facility] COVID-19 ([employer]), MRNA, LNP-S, PF, CHERYL-SUCROSE, 30 MCG/0.3 ML (AGES 12+ YEARS) 2023 KRISTIN KEYS LEFT DELTO ID [id number] 309 complet ed [facility]MINISTE [facility] AT [facility] INFLUENZA, HIGH-DOSE, TRIVALENT, PF 2023 KRISTIN KEYS LEFT DELTO ID [id number] 135 complet ed ADMINISTE RED AT [facility] COVID-19 ([employer]), MRNA, LNP-S, PF, CHERYL-SUCROSE, 30 MCG/0.3 ML (AGES 12+ YEARS) 1 [address] R RIGHT DELTO ID [id number] 309 complet ed ADMINISTE RED AT [facility] INFLUENZA, HIGH-DOSE, QUADRIVALENT 2022 CAR[address] R RIGHT DELTO ID [id number] 197 complet ed [facility] TDAP 2021 [facility] LEFT DELTO ID [id number] 115 complet ed [facility] COVID-19 ([facility]), MRNA, LNP-S, BIVALENT BOOSTER, PF, 30 MCG/0.3 ML DOSE 1 2021 SAMANTHA PRECIADO LEFT DELTO ID [id number] 300 complet ed [facility]MIN[facility] AT [facility] INFLUENZA VACCINE, QUADRIVALENT, ADJUVANTED 2021 205 complet ed [facility] COVID-19 ([employer]), MRNA, LNP-S, PF, 30 MCG/0.3 ML DOSE, CHERYL-SUCROSE (AGES 12+ YEARS) 3 2021 217 complet ed PFR; [id number]; 2 [facility] COVID-19 ([employer]), MRNA, LNP-S, PF, 30 MCG/0.3 ML DOSE 3 2020 208 complet ed [facility] INFLUENZA, INJECTABLE, QUADRIVALENT, PRESERVATIVE FREE 2020 150 complet ed [facility] COVID-19 ([employer]), MRNA, LNP-S, PF, 30 MCG/0.3 ML DOSE 2 2020 208 complet ed PFR; [id number]; 1 [facility] COVID-19 ([employer]), MRNA, LNP-S, PF, 30 MCG/0.3 ML DOSE 1 2020 208 complet ed PFR; [id number]; 1 [facility] INFLUENZA, INJECTABLE, QUADRIVALENT, PRESERVATIVE FREE 2019 150 complet ed [facility] INFLUENZA, SEASONAL, INJECTABLE, PRESERVATIVE FREE 2018 140 complet ed [facility] ZOSTER RECOMBINANT 2 2018 187 complet ed [facility] [employer]OSTER RECOMBINANT 1 2018 187 complet ed [facility] INFLUENZA, SEASONAL, INJECTABLE, PRESERVATIVE FREE 2017 140 complet ed [facility] INFLUENZA, HIGH DOSE SEASONAL 2016 135 complet ed [facility] INFLUENZA, HIGH DOSE SEASONAL 2015 135 complet ed [facility] INFLUENZA, SEASONAL, INJECTABLE, PRESERVATIVE FREE 2014 140 complet ed [facility] PNEUMOCOCCAL CONJUGATE PCV 13 2014 133 complet ed wyeth;l99 262;10/16 [facility] INFLUENZA, UNSPECIFIED FORMULATION 2013 88 complet ed [facility] INFLUENZA, UNSPECIFIED FORMULATION 2012 88 complet ed [facility] TDAP 2012 115 complet ed [facility]kline;ac [id number]; 5 [facility] INFLUENZA, UNSPECIFIED FORMULATION 2011 88 complet ed [facility] ZOSTER LIVE 2011 121 complet ed [employer] [id number], 02/18/13 [facility] PNEUMOCOCCAL, UNSPECIFIED FORMULATION 2011 109 complet ed [employer] [id number] [facility] INFLUENZA, UNSPECIFIED FORMULATION 2010 88 complet ed [facility] INFLUENZA, UNSPECIFIED FORMULATION 2009 88 complet ed [facility] NOVEL INFLUENZA-H1N 1-09, ALL FORMULATIONS 2009 128 complet ed HISTORICA L INFORMATI ON - FROM OTHER REGISTRY, [facility] NOVEL INFLUENZA-H1N 1-09, ALL FORMULATIONS 2009 128 complet ed [facility] INFLUENZA, UNSPECIFIED FORMULATION 2008 88 complet ed [facility] INFLUENZA, UNSPECIFIED FORMULATION 2007 88 complet ed [facility] INFLUENZA, UNSPECIFIED FORMULATION 2006 88 complet ed [facility] INFLUENZA, UNSPECIFIED FORMULATION 2005 88 complet ed [facility] INFLUENZA, UNSPECIFIED FORMULATION 2004 88 complet ed [facility] INFLUENZA, UNSPECIFIED FORMULATION 2003 ZALLAR,ELIZABETH 88 complet ed [facility] INFLUENZA, UNSPECIFIED FORMULATION 2002 88 complet ed [facility] PNEUMOCOCCAL, UNSPECIFIED FORMULATION 2002 109 complet [facility] TD(ADULT) UNSPECIFIED FORMULATION 2002 139 complet [facility] INFLUENZA, UNSPECIFIED FORMULATION 1998 STAFF,NURSE 88 complet [facility] INFLUENZA (HISTORICAL) 1996 STAFF,NURSE 88 complet [facility] Results Combined list of recent chemistry, hematology and other laboratory results from Department of Defense and Veterans Affairs, ranging from 15 months to all on record, depending upon the facility. Order Name Results Value Reference Range Date Interpretation Specimen Comments Source ISMAEL WITH REFLEX TO MORIAH/DNA NUCLEAR AB [PRESENCE] IN SERUM NEGATIVE 04/16 Specimen Type: SERUM No comment entered. Ordering Provider: DWAYNE EUBANKS Report Released Date/Time: Apr 16, 2025 09:52 AM Reporting Lab: [facility] [address] Performing Lab: [facility] [address] [facility] IS [facility] ELP/IMMF IX,SERUM PANEL PROTEIN [MASS/VOLU ME] IN SERUM OR PLASMA 8.4 g/dL 6.4 - 8.3 04/16 H Specimen Type: SERUM No comment entered. Ordering Provider: DWAYNE EUBANKS Report Released Date/Time: Apr 16, 2025 09:52 AM Reporting Lab: [facility] [address] Performing Lab: [facility] [address] [facility] ELP/IMMF IX,SERUM PANEL ALBUMIN [MASS/VOLU ME] IN SERUM OR PLASMA BY ELECTROPHO RESIS 4.47 g/dL 3.66 - 4.78 04/16 Specimen Type: SERUM No comment entered. Ordering Provider: DWAYNE EUBANKS Report Released Date/Time: Apr 16, 2025 09:52 AM Reporting Lab: [facility] [address] Performing Lab: [facility] [address] [facility] ELP/IMMF IX,SERUM PANEL ALPHA 1 GLOBULIN [MASS/VOLU ME] IN SERUM OR PLASMA BY ELECTROPHO RESIS 0.32 g/dL 0.14 - 0.38 04/16 Specimen Type: SERUM No comment entered. Ordering Provider: DWAYNE EUBANKS Report Released Date/Time: Apr 16, 2025 09:52 AM Reporting Lab: [facility] [address] Performing Lab: [place] [address] GEN IS [facility] ELP/IMMF IX,SERUM PANEL ALPHA 2 GLOBULIN [MASS/VOLU ME] IN SERUM OR PLASMA BY ELECTROPHO RESIS 0.97 g/dL 0.50 - 0.90 04/16 H Specimen Type: SERUM No comment entered. Ordering Provider: DWAYNE EUBANKS Report Released Date/Time: Apr 16, 2025 09:52 AM Reporting Lab: [facility] [address] Performing Lab: [place] [address] GEN IS [facility] ELP/IMMF IX,SERUM PANEL BETA 1 GLOBULIN [MASS/VOLU ME] IN SERUM OR PLASMA BY ELECTROPHO RESIS 0.51 g/dL 0.33 - 0.55 04/16 Specimen Type: SERUM No comment entered. Ordering Provider: DWAYNE EUBANKS Report Released Date/Time: Apr 16, 2025 09:52 AM Reporting Lab: [facility] [address] Performing Lab: [place] [phone] GEN IS [facility] ELP/IMMF IX,SERUM PANEL BETA 2 GLOBULIN [MASS/VOLU ME] IN SERUM OR PLASMA BY ELECTROPHO RESIS 0.54 g/dL 0.20 - 0.52 04/16 H Specimen Type: SERUM No comment entered. Ordering Provider: DWAYNE EUBANKS Report Released Date/Time: Apr 16, 2025 09:52 AM Reporting Lab: [facility] [address] Performing Lab: [facility] [address] [place] [facility] ELP/IMMF IX,SERUM PANEL GAMMA GLOBULIN [MASS/VOLU ME] IN SERUM OR PLASMA BY ELECTROPHO RESIS 1.59 g/dL 0.58 - 1.72 04/16 Specimen Type: SERUM No comment entered. Ordering Provider: DWAYNE EUBANKS Report Released Date/Time: Apr 16, 2025 09:52 AM Reporting Lab: [facility] [address] Performing Lab: [facility] [address] [place] IS [facility] ELP/IMMF IX,SERUM PANEL PROTEIN [MASS/VOLU ME] IN SERUM OR PLASMA 8.4 g/dL 6.4 - 8.3 04/16 H Specimen Type: SERUM No comment entered. Ordering Provider: DWAYNE EUBANKS Report Released Date/Time: Apr 16, 2025 09:52 AM Reporting Lab: [facility] [address] Performing Lab: [facility] [address] [facility] IS [facility] ELP/IMMF IX,SERUM PANEL IMMUNOELEC TROPHORESI S FOR SERUM OR PLASMA NO MONOCLON ALS DETECTED 04/16 Specimen Type: SERUM No comment entered. Ordering Provider: DWAYNE EUBANKS Report Released Date/Time: Apr 16, 2025 09:52 AM Reporting Lab: [facility] [address] Performing Lab: [facility] [address] [facility] TSH W/REFLEX TO FREE T4 THYROTROPI N [UNITS/VOL UME] IN SERUM OR PLASMA 1.74 u[IU]/mL 0.35 - 4.94 04/05 Specimen Type: PLASMA No comment entered. Ordering Provider: PJ PRATT Report Released Date/Time: Oct 05, 2024 08:40 AM Reporting Lab: [facility] [address] Performing Lab: [facility] [address] [facility] BNP NATRIURETI C PEPTIDE B [MASS/VOLU ME] IN SERUM OR PLASMA 104 pg/mL <99 - 99 04/05 H Specimen Type: PLASMA No comment entered. Ordering Provider: PJ PRATT Report Released Date/Time: Oct 05, 2024 08:40 AM Reporting Lab: [facility] [address] Performing Lab: [facility] [address] [place] [facility] B 12 COBALAMIN (VITAMIN B12) [MASS/VOLU ME] IN SERUM OR PLASMA 387 pg/mL 213 - 816 04/05 Specimen Type: SERUM No comment entered. Ordering Provider: PJ PRATT Report Released Date/Time: Oct 05, 2024 08:40 AM Reporting Lab: [facility] [address] Performing Lab: [facility] [address] GEN IS [facility] FOLATE FOLATE [MASS/VOLU ME] IN SERUM OR PLASMA 2.8 ng/mL 7.0 04/05 L Specimen Type: SERUM No comment entered. Ordering Provider: PJ PRATT Report Released Date/Time: Oct 05, 2024 08:40 AM Reporting Lab: [facility] [address] Performing Lab: [facility] [address] [place] [facility] CBC LEUKOCYTES [#/VOLUME] IN BLOOD BY AUTOMATED COUNT 3.3 4.0 - 11.0 04/05 L Specimen Type: BLOOD No comment entered. Ordering Provider: PJ PRATT Report Released Date/Time: Oct 05, 2024 08:40 AM Reporting Lab: [facility] [address] Performing Lab: [facility] [address] [place] [facility] CBC ERYTHROCYT ES [#/VOLUME] IN BLOOD BY AUTOMATED COUNT 3.72 4.60 - 6.20 04/05 L Specimen Type: BLOOD No comment entered. Ordering Provider: PJ PRATT Report Released Date/Time: Oct 05, 2024 08:40 AM Reporting Lab: [facility] [address] Performing Lab: [facility] [address] [place] [facility] CBC HEMOGLOBIN [MASS/VOLU ME] IN BLOOD 11.4 g/dL 13.5 - 17.9 04/05 L Specimen Type: BLOOD No comment entered. Ordering Provider: PJ PRATT Report Released Date/Time: Oct 05, 2024 08:40 AM Reporting Lab: [facility] [address] Performing Lab: [facility] [address] [place] [facility] CBC HEMATOCRIT [VOLUME FRACTION] OF BLOOD BY AUTOMATED COUNT 34.6 41.0 - 54.0 04/05 L Specimen Type: BLOOD No comment entered. Ordering Provider: PJ PRATT Report Released Date/Time: Oct 05, 2024 08:40 AM Reporting Lab: [facility] [address] Performing Lab: [facility] [address] [place] [facility] CBC MCV [ENTITIC VOLUME] BY AUTOMATED COUNT 93.0 fL 80.0 - 100.0 04/05 Specimen Type: BLOOD No comment entered. Ordering Provider: PJ PRATT Report Released Date/Time: Oct 05, 2024 08:40 AM Reporting Lab: [facility] [address] Performing Lab: [facility] [address] [place] [facility] CBC MCH [ENTITIC MASS] BY AUTOMATED COUNT 30.6 pg 27.0 - 33.0 04/05 Specimen Type: BLOOD No comment entered. Ordering Provider: PJ PRATT Report Released Date/Time: Oct 05, 2024 08:40 AM Reporting Lab: [facility] [address] Performing Lab: [facility] [address] [place] [facility] CBC MCHC [MASS/VOLU ME] BY AUTOMATED COUNT 32.9 g/dL 32.0 - 37.5 04/05 Specimen Type: BLOOD No comment entered. Ordering Provider: PJ PRATT Report Released Date/Time: Oct 05, 2024 08:40 AM Reporting Lab: [facility] [address] Performing Lab: [facility] [address] [place] [facility] CBC PLATELETS [#/VOLUME] IN BLOOD BY AUTOMATED COUNT 136 150 - 400 04/05 L Specimen Type: BLOOD No comment entered. Ordering Provider: PJ PRATT Report Released Date/Time: Oct 05, 2024 08:40 AM Reporting Lab: [facility] [address] Performing Lab: [facility] [address] [place] IS [facility] CBC PLATELET MEAN VOLUME [ENTITIC VOLUME] IN BLOOD BY AUTOMATED COUNT 9.8 fL 9.1 - 13.0 04/05 Specimen Type: BLOOD No comment entered. Ordering Provider: PJ PRATT Report Released Date/Time: Oct 05, 2024 08:40 AM Reporting Lab: [facility] [address] Performing Lab: [facility] [address] GEN IS [facility] CBC ERYTHROCYT E DISTRIBUTI ON WIDTH [RATIO] BY AUTOMATED COUNT 15.3 11.5 - 14.5 04/05 H Specimen Type: BLOOD No comment entered. Ordering Provider: PJ PRATT Report Released Date/Time: Oct 05, 2024 08:40 AM Reporting Lab: [facility] [address] Performing Lab: [facility] [address] [place] IS [facility] FERRITIN FERRITIN [MASS/VOLU ME] IN SERUM OR PLASMA 447.3 ng/mL 21.8 - 274.7 04/05 H Specimen Type: SERUM No comment entered. Ordering Provider: PJ PRATT Report Released Date/Time: Oct 05, 2024 08:40 AM Reporting Lab: [facility] [address] Performing Lab: [facility] [address] [place] [facility] VIT D 25-OH,TO ALISTAIR 25-HYDROXY VITAMIN D3 [MASS/VOLU ME] IN SERUM OR PLASMA 42 ng/mL 12 - 50 04/05 Specimen Type: SERUM No comment entered. Ordering Provider: PJ PRATT Report Released Date/Time: Oct 05, 2024 08:40 AM Reporting Lab: [facility] [address] Performing Lab: [facility] [address] GEN IS [facility] COMPREHE NSIVE METABOLI C PANEL+MG CREATININE [MASS/VOLU ME] IN SERUM OR PLASMA 2.0 mg/dL 0.7 - 1.2 04/05 H Specimen Type: PLASMA No comment entered. Ordering Provider: PJ PRATT Report Released Date/Time: Oct 05, 2024 08:40 AM Reporting Lab: [facility] [address] Performing Lab: [facility] [address] [facility] COMPREHE NSIVE METABOLI C PANEL+MG UREA NITROGEN [MASS/VOLU ME] IN SERUM OR PLASMA 36 mg/dL 8 - 26 04/05 H Specimen Type: PLASMA No comment entered. Ordering Provider: PJ PRATT Report Released Date/Time: Oct 05, 2024 08:40 AM Reporting Lab: [facility] [address] Performing Lab: [facility] [address] [facility] COMPREHE NSIVE METABOLI C PANEL+MG GLUCOSE [MASS/VOLU ME] IN SERUM OR PLASMA 85 mg/dL 70 - 100 04/05 Specimen Type: PLASMA No comment entered. Ordering Provider: PJ PRATT Report Released Date/Time: Oct 05, 2024 08:40 AM Reporting Lab: [facility] [address] Performing Lab: [facility] [address] [facility] COMPREHE NSIVE METABOLI C PANEL+MG SODIUM [MOLES/VOL UME] IN SERUM OR PLASMA 136 mmol/L 136 - 145 04/05 Specimen Type: PLASMA No comment entered. Ordering Provider: PJ PRATT Report Released Date/Time: Oct 05, 2024 08:40 AM Reporting Lab: [facility] [address] Performing Lab: [facility] [address] [facility] COMPREHE NSIVE METABOLI C PANEL+MG POTASSIUM [MOLES/VOL UME] IN SERUM OR PLASMA 4.5 mmol/L 3.5 - 5.1 04/05 Specimen Type: PLASMA No comment entered. Ordering Provider: PJ PRATT Report Released Date/Time: Oct 05, 2024 08:40 AM Reporting Lab: [facility] [address] Performing Lab: [facility] [address] [place] [facility] COMPREHE NSIVE METABOLI C PANEL+MG CHLORIDE [MOLES/VOL UME] IN SERUM OR PLASMA 100 mmol/L 98 - 107 04/05 Specimen Type: PLASMA No comment entered. Ordering Provider: PJ PRATT Report Released Date/Time: Oct 05, 2024 08:40 AM Reporting Lab: [facility] [address] Performing Lab: [facility] [address] [place] [facility] COMPREHE NSIVE METABOLI C PANEL+MG CARBON DIOXIDE, TOTAL [MOLES/VOL UME] IN SERUM OR PLASMA 28 mmol/L 22 - 29 04/05 Specimen Type: PLASMA No comment entered. Ordering Provider: PJ PRATT Report Released Date/Time: Oct 05, 2024 08:40 AM Reporting Lab: [facility] [address] Performing Lab: [facility] [address] [place] [facility] COMPREHE NSIVE METABOLI C PANEL+MG CALCIUM [MASS/VOLU ME] IN SERUM OR PLASMA 8.9 mg/dL 8.4 - 10.2 04/05 Specimen Type: PLASMA No comment entered. Ordering Provider: PJ PRATT Report Released Date/Time: Oct 05, 2024 08:40 AM Reporting Lab: [facility] [address] Performing Lab: [facility] [address] [place] [facility] COMPREHE NSIVE METABOLI C PANEL+MG PROTEIN [MASS/VOLU ME] IN SERUM OR PLASMA 7.0 g/dL 6.4 - 8.3 04/05 Specimen Type: PLASMA No comment entered. Ordering Provider: PJ PRATT Report Released Date/Time: Oct 05, 2024 08:40 AM Reporting Lab: [facility] [address] Performing Lab: [facility] [address] [place] [facility] COMPREHE NSIVE METABOLI C PANEL+MG ALBUMIN [MASS/VOLU ME] IN SERUM OR PLASMA 4.0 g/dL 3.5 - 5.0 04/05 Specimen Type: PLASMA No comment entered. Ordering Provider: PJ PRATT Report Released Date/Time: Oct 05, 2024 08:40 AM Reporting Lab: [facility] [address] Performing Lab: [place] [phone] GEN IS [facility] COMPREHE NSIVE METABOLI C PANEL+MG BILIRUBIN. TOTAL [MASS/VOLU ME] IN SERUM OR PLASMA 0.6 mg/dL 0.2 - 1.2 04/05 Specimen Type: PLASMA No comment entered. Ordering Provider: PJ PRATT Report Released Date/Time: Oct 05, 2024 08:40 AM Reporting Lab: [facility] [address] Performing Lab: [place] [phone] GEN IS [facility] COMPREHE NSIVE METABOLI C PANEL+MG MAGNESIUM [MASS/VOLU ME] IN SERUM OR PLASMA 2.1 mg/dL 1.6 - 2.6 04/05 Specimen Type: PLASMA No comment entered. Ordering Provider: PJ PRATT Report Released Date/Time: Oct 05, 2024 08:40 AM Reporting Lab: [facility] [address] Performing Lab: [facility] [address] [facility] COMPREHE NSIVE METABOLI C PANEL+MG ANION GAP IN SERUM OR PLASMA 8 mmol/L 5 - 15 04/05 Specimen Type: PLASMA No comment entered. Ordering Provider: PJ PRATT Report Released Date/Time: Oct 05, 2024 08:40 AM Reporting Lab: [facility] [address] Performing Lab: [facility] [address] [place] [facility] COMPREHE NSIVE METABOLI C PANEL+MG ALKALINE PHOSPHATAS E [ENZYMATIC ACTIVITY/V OLUME] IN SERUM OR PLASMA 64 U/L 40 - 150 04/05 Specimen Type: PLASMA No comment entered. Ordering Provider: PJ PRATT Report Released Date/Time: Oct 05, 2024 08:40 AM Reporting Lab: [facility] [address] Performing Lab: [facility] [address] GEN [facility] COMPREHE NSIVE METABOLI C PANEL+MG ALANINE AMINOTRANS FERASE [ENZYMATIC ACTIVITY/V OLUME] IN SERUM OR PLASMA 8 U/L <44 - 44 04/05 Specimen Type: PLASMA No comment entered. Ordering Provider: PJ PRATT Report Released Date/Time: Oct 05, 2024 08:40 AM Reporting Lab: [facility] [address] Performing Lab: [facility] [address] [facility] COMPREHE NSIVE METABOLI C PANEL+MG ASPARTATE AMINOTRANS FERASE [ENZYMATIC ACTIVITY/V OLUME] IN SERUM OR PLASMA 18 U/L 11 - 34 04/05 Specimen Type: PLASMA No comment entered. Ordering Provider: PJ PRATT Report Released Date/Time: Oct 05, 2024 08:40 AM Reporting Lab: [facility] [address] Performing Lab: [facility] [address] [facility] COMPREHE NSIVE METABOLI C PANEL+MG GLOMERULAR FILTRATION RATE/1.73 SQ M.PREDICTE D [VOLUME RATE/AREA] IN SERUM, PLASMA OR BLOOD BY CREATININE -BASED FORMULA (CKD-EPI 2020) 33 60 04/05 L Specimen Type: PLASMA No comment entered. Ordering Provider: PJ PRATT Report Released Date/Time: Oct 05, 2024 08:40 AM Reporting Lab: [facility] [address] Performing Lab: [facility] [address] [facility] Vital Signs Combined list of inpatient and outpatient Vital Signs from Department of Defense and Veterans Affairs, ranging from 12 months to all on record, depending upon the facility. Vital Sign Value Date Comments Source SYSTOLIC BLOOD PRESSURE 121 04/16/2025 08:25:31 [facility] DIASTOLIC BLOOD PRESSURE 72 04/16/2025 08:25:31 [facility] PULSE OXIMETRY 94 % 04/16/2025 08:25:31 [facility] WEIGHT 162 04/16/2025 08:25:31 [facility] BMI 27 kg/m2 04/16/2025 08:25:31 [facility] TEMPERATURE 98 04/16/2025 08:25:31 [facility] PULSE 74 04/16/2025 08:25:31 [facility] RESPIRATION 16 04/16/2025 08:25:31 [facility] HEIGHT 65 04/05/2025 07:39:15 [facility] RESPIRATION 16 04/05/2025 07:39:15 [facility] SYSTOLIC BLOOD PRESSURE 154 12/11/2024 08:18:16 [facility] DIASTOLIC BLOOD PRESSURE 74 12/11/2024 08:18:16 [facility] PULSE OXIMETRY 91 12/11/2024 08:18:16 [facility] PAIN 0 12/11/2024 08:18:16 [facility] TEMPERATURE 98 12/11/2024 08:18:16 [facility] PULSE 78 12/11/2024 08:18:16 [facility] RESPIRATION 18 12/11/2024 08:18:16 [facility] SYSTOLIC BLOOD PRESSURE 127 10/05/2024 07:41:54 [facility] DIASTOLIC BLOOD PRESSURE 78 10/05/2024 07:41:54 [facility] PULSE OXIMETRY 93 10/05/2024 07:41:54 [facility] WEIGHT 167.8 10/05/2024 07:41:54 [facility] BMI 28 kg/m2 10/05/2024 07:41:54 [facility] PAIN 7 10/05/2024 07:41:54 [facility] HEIGHT 65 10/05/2024 07:41:54 [facility] TEMPERATURE 98.2 10/05/2024 07:41:54 [facility] PULSE 84 10/05/2024 07:41:54 [facility] RESPIRATION 17 10/05/2024 07:41:54 [facility] SYSTOLIC BLOOD PRESSURE 142 09/05/2024 08:43:16 [facility] DIASTOLIC BLOOD PRESSURE 82 09/05/2024 08:43:16 [facility] TEMPERATURE 97.8 09/05/2024 08:43:16 [facility] PULSE 77 09/05/2024 08:43:16 [facility] Encounters Combined list of: 1) Encounters from Department of Veterans Affairs facilities going backup to the last 18 months, not all [place] inpatient encounters are included; 2) Encounters from the Department of [facility] facilities going backup to 280 months. Location Location Details Encounter Type Encounter Number Reason For Visit Attending Provider ADM Date DC Date Status [facility] [place] [place] 60 [place] [id number] Diagnos is: ICD-10- CM G25.0 Essenti al tremor BRODIE EUBANKS E 11/04 [facility] [place] [facility] CONFORMITY EVALUATION [id number] Diagnos is: ICD-10- CM H90.3 Sensori neural hearing loss, bilater al DARNELL CASPER 11/14 [facility] [place] [facility] OFFICE O/P EST HI 40 MIN [id number] Diagnos is: ICD-10- CM G47.33 Obstruc tive sleep apnea (adult) ([facility] jeffery) Jovi EDWARDS [facility] [place] [facility] OFFICE O/P EST [place] 40 MIN [id number] Diagnos is: ICD-10- CM G51.31 Clonic hemifac ial spasm, right BRODIE EUBANKS E 01[facility]02 [facility] [place] [facility] Outpatient Encounter [id number] 01[facility]02 [place] [facility] [place] [facility] Outpatient [facility]counter [id number] 01[facility]04 [facility] [place] [facility] OFF/OP EST MAY X REQ PHY/QHP [id number] Diagnos is: ICD-10- CM Z86.010 Jagdish deras history of colonic polyps MANFRED CROCKERUrban GRAHAM H 01/04 [place] [facility] [place] [facility] OFF[place] O/P EST HI 40 MIN [id number] Diagnos is: ICD-10- CM J44.9 Chronic obstruc tive pulmona ry disease , unspeci ANTONIO Yo 01/05 [place] [facility] [place] [facility] Outpatient Encounter [id number] 01/09 [place] [facility] [place] [facility] Outpatient Encounter [id number] 01/10 [place] [facility] [place] [facility] Outpatient Encounter [id number] 01/12 [place] [facility] [place] [facility] OFFICE O/P EST MOD 30 MIN [id number] Diagnos is: ICD-10- CM F33.8 Other recurre nt depress katherin disorde rs HALEY,PET ER B 01/13 [place] [facility] [place] [facility] Outpatient Encounter [id number] 01/13 [place] [facility] [place] [facility] OT EVAL LOW COMPLEX 30 MIN [id number] [id number] Diagnos is: ICD-10- CM G25.0 Essenti al tremor NURY,TYLER TLIN A 01/17 [place] [facility] [place] [facility] Outpatient Encounter [id number] 02/23 [place] [facility] [place] [facility] Outpatient Encounter [id number] 02/24 [place] [facility] [place] [facility] Outpatient Encounter [id number] Yessy WALL 02/26 [place] [facility] [place] [facility] Outpatient Encounter [id number] 02/27 [place] [facility] [place] [facility] Outpatient Encounter [id number] GRANTSHANA 02/28 [facility] Outpatient Encounter [id number] Diagnos is: ICD-10- CM J44.9 Chronic obstruc tive pulmona ry disease , unspeci fied LLOYD ROSENTHAL E 03/06 [facility] NEUROMUSCU LAR REEDUCATIO N [id number] Diagnos is: ICD-10- CM G25.0 Essenti al tremor TYLER ARRINGTON TLIN A 03/07 [facility] Outpatient Encounter [id number] 03/16 [facility] Outpatient Encounter [id number] 03/16 [facility] EMERGENCY DEPT VISIT MOD MDM [id number] [id number] Diagnos is: ICD-10- CM I50.21 Acute systoli c (conges tive) heart failure NABILA RODRIGUEZ ON K 03/19 [facility] NEUROMUSCU LAR REEDUCATIO N [id number] [id number] Diagnos is: ICD-10- CM G25.0 Essenti al tremor TYLER ARRINGTONIN A 03/23 [facility] OFFICE O/P EST MOD 30 MIN [id number] Diagnos is: ICD-10- CM G62.9 Polyneu ropathy , unspeci fied Fabiana PRATT HRISTOPHER 04/06 [facility] Outpatient Encounter [id number] 04/06 [facility] OFFICE O/P EST HI 40 MIN [id number] Diagnos is: ICD-10- CM G51.31 Clonic hemifac ial spasm, right CHA,LA UREN E 04/10 [facility] [place] [facility] NEUROMUSCU LAR REEDUCATIO N [id number] [id number] Diagnos is: ICD-10- CM G25.0 Essenti al tremor TYLER ARRINGTON TLIN A 04/11 [facility] [place] [facility] TTE W/DOPPLER COMPLETE [id number] [id number] Diagnos is: ICD-10- CM R06.02 Shortne ss of breath OCTAVIANO CHEW FAN 05/08 [facility] [place] [facility] Outpatient Encounter [id number] 05/08 [facility] OFF/OP EST MAY X REQ PHY/QHP [id number] [id number] Diagnos is: ICD-10- CM R60.0 Localiz ed edema GRANT,AND NEW A 05/08 [facility] Outpatient Encounter [id number] 05/18 [facility] HEMOGLOBIN [id number] [id number] Diagnos is: ICD-10- CM J44.9 Chronic obstruc tive pulmona ry disease , unspeci fied TIERRA RONDON E 05/30 [facility] Outpatient [facility]counter [id number] 05/30 [facility] OFF/OP CONSLTJ NEW/EST HI 55 [id number] [id number] Diagnos is: ICD-10- CM I27.20 Pulmona ry hyperte nsion, unspeci fied GURU RIVERA E 05/30 [facility] OFFICE O/P EST MOD 30 MIN [id number] Diagnos is: ICD-10- CM F33.8 Other recurre nt depress katherin disorde rs HALEY,PET ER B 05/31 [facility] ENGINEERING SCIENTIST/OFFICE MANAGER EXECUTIVE ASSISTANT SERVICES UP TO 15MIN [id number] [id number] Diagnos is: ICD-10- CM Z13.9 Encount er for screeni ng, unspeci fied MARIN ALICEA RA 05/31 [facility] Outpatient Encounter [id number] 05/31 [facility] OFF/OP EST MAY X REQ PHY/QHP [id number] [id number] Diagnos is: ICD-10- CM I10 Essenti al (primar y) hyperte nsion GRANT,AND NEW A 05/31 [facility] Outpatient Encounter [id number] 07/07 [facility] Outpatient Encounter [id number] 07/12 [facility] Outpatient Encounter [id number] 07/13 [facility] OFFICE O/P EST MOD 30 MIN [id number] [id number] Diagnos is: ICD-10- CM 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, bilater al, moderat e stage JC,STEW ART J 07/14 [facility] EMERGENCY DEPT VISIT LOW MDM [id number] [id number] Diagnos is: ICD-10- CM S46.011 A Strain of musc/te nd the rotator cuff of right shoulde r, init TAYLOR,LES LIE A 07/14 [facility] Outpatient Encounter [id number] 07/20 [facility] HEMOGLOBIN [id number] [id number] Diagnos is: ICD-10- CM J44.9 Chronic obstruc tive pulmona ry disease , unspeci fied Jovi EDWARDS 07/20 [facility] [place] [facility] Outpatient Encounter [id number] 07/20 [facility] OFFICE O/P EST HI 40 MIN [id number] Diagnos is: ICD-10- CM J44.9 Chronic obstruc tive pulmona ry disease , unspeci fied ANTONIO AREVALO 07/20 [facility] [place] [facility] Outpatient Encounter [id number] 07/20 [facility] [place] [facility] Outpatient Encounter [id number] 07/20 [facility] REPLACE SEMI PREC ATTACH [id number] [id number] Diagnos is: ICD-10- CM K08.109 Complet e loss of teeth, unspeci fied cause, unspeci fied class AGATHA FORD RY E 07/24 [facility] Outpatient Encounter [id number] 08/02 [facility] Outpatient Encounter [id number] 08/21 [facility] OFFICE O/P EST MOD 30 MIN [id number] [id number] Diagnos is: ICD-10- CM G51.31 Clonic hemifac ial spasm, right FARRUKH,BRADEN 08/22 [facility] [place] [facility] Outpatient Encounter [id number] MAGALIE BUSTILLO 08/22 [facility] Outpatient Encounter [id number] 08/24 [facility] CLEAN/INSP ECT YADY COMP DENT [id number] Diagnos is: ICD-10- CM K08.109 Complet e loss of teeth, unspeci fied cause, unspeci fied class AGATHA FORD RY E 09/05 [facility] Outpatient Encounter [id number] 09/07 [facility] OFFICE O/P EST LOW 20 MIN [id number] [id number] Diagnos is: ICD-10- CM 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 TERRY,RY AN M 09/08 [facility] OFFICE O/P EST MOD 30 MIN [id number] [id number] Diagnos is: ICD-10- CM F43.12 Post-tr aumatic stress disorde r, chronic HALEY,PET ER B 09/27 [facility] UNLISTED SPEC DERM SVC/PX [id number] [id number] Diagnos is: ICD-10- CM Z13.89 Encount er for screeni ng for other disorde r RAFA GRAHAM A 09/27 [facility] Outpatient Encounter [id number] Diagnos is: ICD-10- CM 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, subcu of trunk ALONALINDASOFIARADHA JENNIFER L 09/29 [facility] Outpatient Encounter [id number] 10/05 [facility] OFFICE O/P EST MOD 30 MIN [id number] [id number] Diagnos is: ICD-10- CM F33.8 Other recurre nt depress katherin disorde rs Fabiana PRATT HRISTOPHABDELRAHMAN 10/05 [facility] NQHP OL DIG ASSMT&MGMT 11-20 [id number] [id number] Diagnos is: ICD-10- CM Z79.01 retirement (curren t) use of anticoa gulants KELI CUNHA 10/09 [facility] Outpatient Encounter [id number] [id number] LEE KAY M 10/10 [place] [facility] [place] [facility] Outpatient Encounter [id number] [id number] 10/24 [facility] MTMS BY PHARM EST 15 MIN [id number] [id number] Diagnos is: ICD-10- CM Z79.01 retirement (curren t) use of anticoa gulanJASMYNE Martin 10/25 [facility] MTMS BY PHARM ADDL 15 MIN [id number] [id number] Diagnos is: ICD-10- CM I50.9 Heart failure , unspeci fied CARLOS ZAMORA A 11/10 [facility] MTMS BY PHARM EST 15 MIN [id number] [id number] Diagnos is: ICD-10- CM I50.9 Heart failure , unspeci fied OSCAR ZAMORAICA A 11/17 [facility] OFFICE O/P EST HI 40 MIN [id number] [id number] Diagnos is: ICD-10- CM G20.C Lucie onism, unspeci fied BRODIE EUBANKS E 12/11 [facility] NQHP OL DIG ASSMT&MGMT 5-10 94623-2.61 [id number] Diagnos is: ICD-10- CM Z51.81 Encount er for therape utic drug level monitor lara DE LEON MA TTHEW S 01/11 [facility] EXTENDED VISUAL FIELD XM 09523-9.61 [id number] Diagnos is: ICD-10- CM H40.10X 2 Unspeci fied open-an gle glaucom a, moderat e stage Layla BRAUN 01/16 [facility] OFFICE O/P EST MOD 30 MIN [id number] [id number] Diagnos is: ICD-10- CM 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, bilater al, moderat e stage RAISA GREENE ART J 01/16 [facility] NRV CNDJ TEST 7-8 STUDIES [id number] [id number] Diagnos is: ICD-10- CM G62.9 Polyneu ropathy , unspeci fied KARLY,CASH CA M 01/17 [facility] OFFICE O/P EST MOD 30 MIN [id number] [id number] Diagnos is: ICD-10- CM F43.12 Post-tr aumatic stress disorde r, chronic HALEY,PET ER B 02/13 [facility] Outpatient Encounter [id number] [id number] 04/05 [facility] OFFICE O/P EST HI 40 MIN 03138-5.61 [id number] Diagnos is: ICD-10- CM 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 Fabiana PRATTISTOPHABDELRAHMAN 04/05 [facility] OFFICE O/P EST MOD 30 MIN 84512-9.61 [id number] Diagnos is: ICD-10- CM F43.12 Post-tr aumatic stress disorde r, chronic HALEY,PET ER B 04/13 [facility] OFFICE O/P EST HI 40 MIN [id number] [id number] Diagnos is: ICD-10- CM G51.31 Clonic hemifac ial spasm, right CHA,LA UREN E 04/16 [facility] Outpatient Encounter [id number] [id number] DEVONTE DOUGLAS RA 04/25 [facility] Social History Combined list of available smoking, tobacco, and 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 Social History Type Response Date Comment Sourc e Tobacco smoking status NHIS VA-TOBACCO USE FORMER CIGARETTES 10/05/2024 [facility] History of tobacco use VA-TOBACCO NEVER USED OTHER TYPE 10/05/2024 [facility] History of tobacco use VA-TOBACCO FORMER USER 10/11/2023 [facility] History of tobacco use VA-TOBACCO FORMER USER 08/17/2022 [facility] History of tobacco use VA-TOBACCO FORMER USER 10/27/2021 [facility] History of tobacco use VA-TOBACCO FORMER USER 09/19/2020 [facility] History of tobacco use VA-TOBACCO FORMER USER 12/20/2018 [facility] History of tobacco use FORMER TOBACCO US ER 7Y OR GREATER 12/07/2017 [facility] History of tobacco use FORMER TOBACCO US ER 7Y OR GREATER 04/21/2017 [facility] History of tobacco use FORMER TOBACCO US ER 7Y OR GREATER 04/28/2016 [facility] History of tobacco use FORMER TOBACCO US ER 7Y OR GREATER 01/22/2015 [facility] History of tobacco use FORMER TOBACCO US ER 7Y OR GREATER 01/25/2014 [facility] History of tobacco use FORMER TOBACCO US ER 7Y OR GREATER 12/30/2011 [facility] History of tobacco use FORMER TOBACCO US E >1Y <7Y 01/21/2011 [facility] History of tobacco use FORMER TOBACCO US E >1Y <7Y 11/27/2009 [facility] History of tobacco use FORMER TOBACCO US E >1Y <7Y 12/27/2008 [facility] History of tobacco use FORMER TOBACCO US E >1Y <7Y 01/03/2008 [facility] History of tobacco use FORMER TOBACCO US E >1Y <7Y 01/11/2007 [facility] Plan of Care List of future care activities from [facility] facilities. Additional future care activities may be listed in the Assessment and Plan section. Date/Time Care Activity Care Activity Detail Facili ty 05/16/2025 AMBULATORY - NONE AMBULATORY - NONE [facility] Advance Directives List of completed, amended, or rescinded Advance Directives on record at [facility] facilities. An actual copy of the Directive is not included. Date Advance Directive Provider Source 12/04/2009 CLINICAL WARNING [facility]I CUM[facility]INGS [facility]
--- OUTSIDE RECORDS SUMMARY | 2025-04-25 01:12 | XMS_ITS | Encounter Summary ---
Author Name [facility] Organization [facility] [place] Address [address] [place] [address] Care Team Providers Care Radiologic Electronic Specialist Name Role Phone EDUARDO PRATT Primary Care [...] PART A Sep 30, 2010 PART A [id number] Isaac IGLESIAS PATIENT MEDICARE ([place]NR) MEDICARE (M) PART A Sep 30, 2010 PART A [id number] [phone] Isaac IGLESIAS PATIENT Selected Encounter This section includes the information on record at [place] for the Encounter. Date/Time Encounter Type Encounter Description Reason Provider Source Apr 25, 2025 06:12 AM Outpatient Encounter TELEPHONE TRIAGE DOUGLAS DOUGLAS Encounter Template Text not used by [place] Plan of Treatment: Future Appointments (+ 6 months) and Future Tests (+/- 45 days) The Plan of Treatment section includes future care activities for the [facility] [place] [facility] This section includes future appointments [...] 16, 2025 08:15 AM AMBULATORY - NONE [place] [facility] Jul 13, 2025 08:30 AM [facility] Jul 19, 2025 10:30 AM AMBULATORY - REHAB MEDICIN [facility] Jul 19, 2025 11:20 AM [facility] Jul 19, 2025 01:30 PM [facility]UL[facility]INE [facility] Sep 04, 2025 08:30 AM AMBULATORY - SURGERY [facility] Sep 07, 2025 09:00 AM AMBULATORY - SURGERY [facility] Sep 24, 2025 08:30 AM [facility] Active, Pending, and Scheduled Orders This section includes a listing of several types of active, pending, and scheduled orders, including clinic medications orders, diagnostic test orders, procedure orders and consult orders; where the start date of the order is 45 days before the date of the Encounter or 45 days after the date of theEncounter. The data comes from all [facility]. Test Date/Time Test Type Test Details Facility Name Apr 16, 2025 10:24 AM Laboratory - Chemistry Order ENCEPHALOPATHY/PARANEOPL ASTIC EVAL, S SERUM SP ONCE [facility] May 16, 2025 08:15 AM Imaging - Nuclear Medicine Order MYOCARDIAL PERFUSION PHARMACOLOGIC STRESS/REST [facility] Lab Results: +/- 30 days of [...] Type Comment Apr 16, 2025 10:24 AM [facility] ISMAEL WITH REFLEX TO MORIAH/DNA SERUM Specimen Ty pe: SERUM No comment entered. Ordering Provider: ALHAJI EUBANKS Report Released Date/Time: Apr 16, 2025 09:52 AM Reporting Lab: [facility] [phone] Performing Lab: [facility] [address] .ANTINUCLEAR ABELARDO NEGATIVE Negative Apr 16, 2025 10:24 AM [facility] ELP/IMMFIX,SERUM PANEL SERUM Speci men Type: SERUM No comment entered. Ordering Provider: ALHAJI EUBANKS Report Released Date/Time: Apr 16, 2025 09:52 AM Reporting Lab: [facility] [id number] Performing Lab: [facility] [address] PROTEIN,TOTAL 8.4 g/dL H 6.4-8.3 .ALBUMIN FRACTION 4.47 g/dL 3.66-4.78 .ALPHA 1 FRACTION 0.32 g/dL 0.14-0.38 .ALPHA 2 FRACTION 0.97 g/dL H 0.50-0.90 .BETA 1 FRACTION 0.51 g/dL 0.33-0.55 .BETA 2 FRACTION 0.54 g/dL H 0.20-0.52 .GAMMA FRACTION 1.59 g/dL 0.58-1.72 .TOTAL PROTEIN 8.4 g/dL H 6.4-8.3 .INTERPRETATION NO MONOCLONALS DETECTED Apr 05, 2025 06:37 AM [facility] TSH W/REFLEX TO FREE T4 PLASMA Spec imen Type: PLASMA No comment entered. Ordering Provider: EDUARDO PRATT Report Released Date/Time: Oct 05, 2024 08:40 AM Reporting Lab: [facility] [address] Performing Lab: [facility] [address] TSH 1.74 u[IU]/mL 0.35-4.94 Apr 05, 2025 06:37 AM [facility] BNP PLASMA Specimen Type : PLASMA No comment entered. Ordering Provider: EDUARDO PRATT Report Released Date/Time: Oct 05, 2024 08:40 AM Reporting Lab: [facility] [address] Performing Lab: [facility] [address] BNP 104 pg/mL H <99 Apr 05, 2025 06:37 AM [facility] B 12 SERUM Specimen Type : SERUM No comment entered. Ordering Provider: EDUARDO PRATT Report Released Date/Time: Oct 05, 2024 08:40 AM Reporting Lab: [facility] [address] Performing Lab: [facility] [address] B 12 387 pg/mL 213-816 Apr 05, 2025 06:37 AM [facility] CBC BLOOD Specimen Type: BLOOD No comment entered. Ordering Provider: EDUARDO PRATT Report Released Date/Time: Oct 05, 2024 08:40 AM Reporting Lab: [facility] [address] Performing Lab: [facility] [address] WBC 3.3 L 4.0-11.0 RBC 3.72 L 4.60-6.20 HGB 11.4 g/dL L 13.5-17.9 HCT 34.6 L 41.0-54.0 MCV 93.0 fL 80.0-100.0 MCH 30.6 pg 27.0-33.0 MCHC 32.9 g/dL 32.0-37.5 PLT 136 L 150-400 MPV 9.8 fL 9.1-13.0 RDW 15.3 H 11.5-14.5 Apr 05, 2025 06:37 AM [facility] FOLATE SERUM Specimen Type : SERUM No comment entered. Ordering Provider: EDUARDO PRATT Report Released Date/Time: Oct 05, 2024 08:40 AM Reporting Lab: [facility] [address] Performing Lab: [facility] [address] FOLATE 2.8 ng/mL L >7.0 Apr 05, 2025 06:37 AM [facility] COMPREHENSIVE METABOLIC PANEL+MG PLASMA Specimen Type: PLASMA No comment entered. Ordering Provider: EDUARDO PRATT Report Released Date/Time: Oct 05, 2024 08:40 AM Reporting Lab: [facility] [address] Performing Lab: [facility] [address] CREATININE 2.0 mg/dL H 0.7-1.2 UREA NITROGEN [...] L >60 Apr 05, 2025 06:37 AM [facility] VIT D 25-OH,TOTAL SERUM Specimen T ype: SERUM No comment entered. Ordering Provider: EDUARDO PRATT Report Released Date/Time: Oct 05, 2024 08:40 AM Reporting Lab: [facility] [address] Performing Lab: [facility] [address] VIT D 25-OH,TOTAL 42 ng/mL 12-50 Apr 05, 2025 06:37 AM [facility] FERRITIN SERUM Specimen Type : SERUM No comment entered. Ordering Provider: EDUARDO PRATT Report Released Date/Time: Oct 05, 2024 08:40 AM Reporting Lab: [facility] [address] Performing Lab: [facility] [address] FERRITIN 447.3 ng/mL H 21.8-274.7 Apr 05, 2025 06:37 AM [facility] IRON GROUP SERUM Specimen Type : SERUM No comment entered. Ordering Provider: EDUARDO PRATT Report Released Date/Time: Oct 05, 2024 08:40 AM Reporting Lab: [facility] [address] Performing Lab: [facility] [address] IRON 129 ug/dL 65-175 TIBC,CALCULATED 265 ug/dL 250-425 FERRITIN 447.3 ng/mL H 21.8-274.7 IRON SATURATION 49 20-50 TRANSFERRIN 212 mg/dL 163-382 Apr 05, 2025 06:37 AM [facility] METHYLMALONIC ACID SERUM Specimen Type: SERUM No comment entered. Ordering Provider: EDUARDO PRATT Report Released Date/Time: Apr 05, 2025 11:20 AM Reporting Lab: [facility] [address] Performing Lab: [facility] [address] METHYLMALONIC ACID 350 nmol/L 0-400 Apr 05, 2025 06:37 AM [facility] HOMOCYSTEINE PLASMA Specimen Type : PLASMA No comment entered. Ordering Provider: EDUARDO PRATT Report Released Date/Time: Apr 05, 2025 11:21 AM Reporting Lab: [facility] [address] Performing Lab: [facility] [address] HOMOCYSTEINE 37.9 umol/L H 5.1-15.4 Social History: [...] Anuja alexis Oct 05, 2024 08:00 AM [place]-TOBACCO USE FORMER CIGARETTES [facility] Tobacco Use History This section includes a history of the smoking, or tobacco-related health factors, that were collected on or before the date of the Encounter. The data comes from the [place] facility where the Encounter took place. Date/Time Smoking Status/Tobacco Use Comment F acility Oct 05, 2024 08:00 AM [place]-TOB[place] USE FORMER CIGARETTES [facility] Oct 11, 2023 08:00 AM [place]-TOBACCO FORMER USER [facility] Oct 11, 2023 08:00 AM [place]-TOBACCO QUIT 15 YRS OR MORE [facility] Aug 17, 2022 09:15 AM [place]-TOBACCO FORMER USER [facility] Aug 17, 2022 09:15 AM [place]-TOBACCO QUIT 15 YRS OR MORE [facility] Oct 27, 2021 09:00 AM [place]-TOBACCO FORMER USER [facility] Oct 27, 2021 09:00 AM [place]-TOBACCO QUIT 15 YRS OR MORE [facility] Sep 19, 2020 09:00 AM [place]-TOBACCO FORMER USER [facility] Sep 19, 2020 09:00 AM [place]-TOBACCO QUIT 15 YRS OR MORE [facility] Dec 20, 2018 10:09 AM [place]-TOBACCO FORMER USER [facility] Dec 20, 2018 10:09 AM [place]-TOBACCO QUIT 15 YRS OR MORE [facility] Dec 07, 2017 09:12 AM FORMER TOBACCO USER 7Y OR GREATE R [facility] Apr 21, 2017 08:35 AM FORMER TOBACCO USER 7Y OR GREATE R [facility] Apr 28, 2016 08:20 AM FORMER TOBACCO USER 7Y OR GREATE R [facility] January 22, 2015 10:07 AM FORMER TOBACCO USER 7Y OR GREATE R [facility] January 25, 2014 10:11 AM FORMER TOBACCO USER 7Y OR GREATE R [facility] December 30, 2011 08:00 AM FORMER TOBACCO USER 7Y OR GREATE R [facility] January 21, 2011 01:16 PM FORMER TOBACCO USE >1Y <7Y [facility] Nov 27, 2009 08:09 AM FORMER TOBACCO USE >1Y <7Y [facility] Dec 27, 2008 12:32 AM FORMER TOBACCO USE >1Y <7Y [facility] January 03, 2008 12:52 PM FORMER TOBACCO USE >1Y <7Y [facility] January 11, 2007 10:43 AM FORMER TOBACCO USE >1Y <7Y [facility] Advance Directives: All historical and current [...] Encounter. Date/Time Encounter Note(s) Provider Source Apr 25, 2025 05:12 AM RN PROGRESS NOTE: LOCAL TITLE: CCC: CLINICAL TRIAGE STANDARD TITLE: RN PROGRESS NOTE DATE OF NOTE: APR 25, 2025@05:12:58 ENTRY DATE: APR 25, 2025@05:12:58 AUTHOR: DOUGLAS DOUGLAS COSIGNER: URGENCY: STATUS: COMPLETED Caller Verification Call Back Number: [phone] Caller/Recipient Relation to Patient: Self Caller Name: ROSS IGLESIAS Triage Summary Conducted triage/discussed symptoms Utilized the Triage Tool: Yes Chief Complaint: Neurologic Deficit Nurse's Recommendation / WHEN: 911 Nurse's Recommendation / WHERE: 911 Patient Disposition Patient/Caregiver agrees to plan of care: Yes Patient WHERE: 911 Patient WHEN: 911 Nursing Plan and Disposition Referred patient to higher level of care Instructed to go to Emergency Room (ER) Other Description: [place] advised to call 911 now. Nurse Summary Nurse Summary: states he woke up about a couple of hours ago with numbness to the right side of his head and bleeding from his right ear. He endorsed severe weakness to his generalized body. He confirmed his daughter is currently with him at present. He was advised to have his daughter call 911 now for him. He voiced understanding and he agreed with the plan to have his daughter call 911 now. Clinical Contact Center Codes Clinic/Location: [facility] RN Decision Support System Output: Triage Complete Triage Date: 04/25/2025, 06:09 AM Triage Note: Decision Support Tool Used: Rossy Protocol Used: Neurologic Deficit Protocol-Based Disposition: Call EMS 911 Now Positive Triage Questions: * [1] SEVERE weakness (e.g., unable to walk or barely able to walk, requires support) AND [2] new-onset or getting worse * [1] Numbness (i.e., loss of sensation) of the face, arm / hand, or leg / foot on one side of the body AND [2] sudden onset AND [3] present now * Sounds like a life-threatening emergency to the triager IMPORTANT: This note was created by [facility] Clinical Contact Center staff. Please do not alert the staff member by adding them as a signer for future communications. Alerts are not monitored by this user. /johana/ DOUGLAS DOUGLAS RN TELECARE NURSE Signed: 04/25/2025 05:13 Receipt Acknowledged By: * AWAITING SIGNATURE * SONAM GRANT * AWAITING SIGNATURE * EDUARDO PRATT SANDRA R [facility]
--- OUTSIDE RECORDS SUMMARY | 2025-04-25 01:12 | XMS_ITS | Continuity of Care Document ---
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 It does not include entries that were removed or entered in error. Problem Status Onset Date Problem Type Date of Resolution Comments Source Exposure to potentially hazardous substance (SCT [id number]) Active 11/04/19 24 Condition Nov 04, 2023 Entered By: ZANE WOODWARD Comment: [facility] Documentation Initiative [facility] Coronary artery disease Active 08/30/19 04 [...] 2019 Stress Thalium: 1. No ischemia demonstrated. [facility] History of venous thrombosis Active 08/30/18 78 Condition Apr 25, 2018 Entered By: ANJEL DUONG Comment: H/O provoked LE DVT in 1977.Jan 31, 2020 Entered By: ANJEL DUONG Comment: Recurrent unprovoked DVT in 1986.Jan 31, 2020 Entered By: ANJEL DUONG Comment: H/O unprovoked right leg DVT in 2019 [facility] Benign prostatic hyperplasia with outflow obstruction Active Condition [facility] Chronic hypoxemic respiratory failure Active Condition [facility] Chronic respiratory failure Active Condition [facility] Chronic rhinitis Active Condition [facility] COPD - Chronic obstructive pulmonary disease Active Condition Apr 25 18 Entered By: ANJEL DUONG Comment: FEV1/FVC (2009) 2.00/3.13. FEV1 70% pred. 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 Hypoxic Active Condition Feb 20 Entered By: CHERI PRATT Comment: Chronic 78 - 85% RA [facility] Long-term current use of anticoagulant Active Condition [facility] Malignant tumor of oropharynx Active Condition Oct 23, 2013 Entered By: MARI CLIFTON Comment: 1978 [facility] Myoclonus Active Condition [facility] Osteoarthritis (SNOMED CT 865944878) Active Condition [facility] Parkinsonism Active Condition [facility] Peripheral neuropathy Active Condition [facility] Posttraumatic stress disorder (SNOMED CT 17414115) Active Condition [facility] Preglau/Glauc Suspect Active Condition [facility] Pulmonary emphysema Active Condition May 31, 2024 Entered By: CHERI PRATT Comment: Group III [facility] Pulmonary fibrosis Active Condition [facility] Pulmonary hypertension Active Condition Feb 20, 2023 Entered By: CHERI PRATT Comment: MildJun 2022 Entered By: CHERI PRATT Comment: 11/19 Echo [facility] Syncope Active Condition [facility] Tremor Active Condition [facility] Depression, Unspec Inactive Condition 01/03/2008 [facility] Gynecomastia * (ICD-9-CM 611.1) Inactive Condition 01/03/2008 [facility] Pneumonia, organism unspecified (ICD-9-CM 486.) Inactive Condition 11/09/2012 [facility] Diagnosis: ICD-10-CM G51.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, right Active Diagnosis [facility] Diagnosis: ICD-10-CM F43.12 Post-traumatic stress disorder, chronic Active Diagnosis [facility] Diagnosis: ICD-10-CM I25.10 Athscl heart disease of [place] coronary artery w/o ang pctrs Active Diagnosis [facility] Diagnosis: ICD-10-CM G62.9 Polyneuropathy, unspecified Active Diagnosis [facility] Diagnosis: ICD-10-CM H40.1132 Primary open-angle glaucoma, bilateral, moderate stage Active Diagnosis [facility] Diagnosis: ICD-10-CM H40.10X2 Unspecified open-angle glaucoma, moderate stage Active Diagnosis [facility] Diagnosis: ICD-10-CM Z51.81 Encounter for therapeutic drug level monitoring Active Diagnosis [facility] Diagnosis: ICD-10-CM G20.C Parkinsonism, unspecified Active Diagnosis [facility] Diagnosis: ICD-10-CM I50.9 Heart failure, unspecified Active Diagnosis [facility] Diagnosis: ICD-10-CM Z79.01 detention (current) use of anticoagulants Active Diagnosis [facility] Diagnosis: ICD-10-CM F33.8 Other recurrent depressive disorders Active Diagnosis [facility] Diagnosis: ICD-10-CM D17.1 Benign lipomatous neoplasm of skin, subcu of trunk Active Diagnosis [facility] Diagnosis: ICD-10-CM Z13.89 Encounter for screening for other disorder Active Diagnosis [facility] Diagnosis: ICD-10-CM G90.09 Other idiopathic peripheral autonomic neuropathy Active Diagnosis [facility] Diagnosis: ICD-10-CM K08.109 Complete loss of teeth, unspecified cause, unspecified class Active Diagnosis [facility] Diagnosis: ICD-10-CM J44.9 Chronic obstructive pulmonary disease, unspecified Active Diagnosis [facility] Diagnosis: ICD-10-CM S46.011A Strain of musc/tend the rotator cuff of right shoulder, init Active Diagnosis [facility] Diagnosis: ICD-10-CM I10 Essential (primary) hypertension Active Diagnosis [facility] Diagnosis: ICD-10-CM Z13.9 Encounter for screening, unspecified Active Diagnosis [facility] Diagnosis: ICD-10-CM I27.20 Pulmonary hypertension, unspecified Active Diagnosis [facility] Diagnosis: ICD-10-CM R60.0 Localized edema Active Diagnosis [facility] Diagnosis: ICD-10-CM R06.02 Shortness of breath Active Diagnosis [facility] Diagnosis: ICD-10-CM G25.0 Essential tremor [facility] Diagnosis: ICD-10-CM I50.21 Acute systolic (congestive) heart failure Active Diagnosis [facility] Diagnosis: ICD-10-CM Z86.010 Personal history of colonic polyps [facility] Diagnosis: ICD-10-CM G47.33 Obstructive sleep apnea (adult) (pediatric) Active Diagnosis [facility] Diagnosis: ICD-10-CM H90.3 Sensorineural hearing loss, bilateral Active Diagnosis [facility] Medications Combined list of outpatient medications from Department of Defense and [facility] facilities.Medications provided include 1) outpatient medications from [...] BREATH RESPIR ATORY (INHAL ATION) ACTIVE 11/11/2025 [id number] 5 MASHAVERÓNICA 2024 2 [facility] ATORVASTATI N CA 40MG TAB TAKE ONE TABLET BY MOUTH EVERY DAY FOR CHOLESTE ROL ORAL SUSPEND ED 04/06/2026 [id number] 5 MASHAVERÓNICA 2024 90 [facility] ATORVASTATI N CA 40MG TAB TAKE ONE TABLET BY MOUTH EVERY DAY FOR CHOLESTE ROL ORAL DISCONT INUED 09/30/2025 [id number] 5 VERÓNICA PRATT ER 2024 90 [facility] ATORVASTATI N CA 40MG TAB TAKE ONE TABLET BY MOUTH EVERY DAY FOR CHOLESTE ROL ORAL DISCONT INUED 10/11/2024 [id number] 5 VERÓNICA PRATT 2023 90 [facility] BRIMONIDINE TARTRATE 0.2% SOLN,OPH INSTILL 1 DROP IN BOTH EYES TWICE A DAY FOR GLAUCOMA SPACE 10 MINUTES APART FROM OTHER EYE DROPS OPHTHA LMIC ACTIVE 01/17/2026 [id number] 5 OCTAVIANO GREENE 2024 10 [place] [facility] BRIMONIDINE TARTRATE 0.2% SOLN,OPH INSTILL 1 DROP IN BOTH EYES TWICE A DAY FOR GLAUCOMA SPACE 10 MINUTES APART FROM OTHER EYE DROPS OPHTHA LMIC DISCONT INUED 07/15/2025 [id number] 5 OCTAVIANO GREENE J 2023 10 [facility] BRIMONIDINE TARTRATE 0.2% SOLN,OPH INSTILL 1 DROP IN BOTH EYES TWICE A DAY FOR GLAUCOMA SPACE 10 MINUTES APART FROM OTHER EYE DROPS OPHTHA LMIC DISCONT INUED 03/18/2024 [id number] COLLIN BRADLEY 2022 10 [place] [facility] BUSPIRONE HCL 5MG TAB TAKE ONE TABLET BY MOUTH TWICE A DAY FOR MOOD ORAL SUSPEND ED 04/16/2026 [id number] 5 IDALIA HALEY 2024 180 [place] [facility] BUSPIRONE HCL 5MG TAB TAKE ONE TABLET BY MOUTH TWICE A DAY FOR MOOD ORAL DISCONT INUED 10/02/2025 [id number] IDALIA HALEY B 2024 180 [facility] CALCIUM CARBONATE 650MG TAB TAKE ONE TABLET BY MOUTH EVERY DAY ORAL SUSPEND ED 04/06/2026 [id number] 5 VERÓNICA PRATT 2024 90 [facility] CALCIUM CARBONATE 650MG TAB TAKE ONE TABLET BY MOUTH EVERY DAY ORAL DISCONT INUED 10/06/2025 [id number] 5 VERÓNICA PRATT 2024 90 [facility] CALCIUM CARBONATE 650MG TAB TAKE ONE TABLET BY MOUTH EVERY DAY ORAL DISCONT INUED 03/14/2025 [id number] 4 VERÓNICA PRATT 2023 90 [facility] CALCIUM CARBONATE 650MG TAB TAKE ONE TABLET BY MOUTH EVERY DAY ORAL DISCONT INUED 10/11/2024 [id number] 4 VERÓNICA PRATT 2023 90 [facility] CARBIDOPA 25MG/LEVODO PA 100MG TAB TAKE ONE-HALF TABLET BY MOUTH THREE TIMES A DAY FOR 7 DAYS, THEN TAKE 1 TABLET THREE TIMES A DAY FOR 23 DAYS FOR PARKINSO N DISEASE TAKE AT 6AM, 12PM, 5-6 PM ORAL ACTIVE 05/22/2025 [id number] 5 Yessy EUBANKS 2024 80 [facility] CARBOXYMETH YLCELLULOSE NA 0.25% SOLN,OPH INSTILL 2 DROPS IN OPERATIV E EYE EVERY 2 HOURS NEEDED FOR DRY EYES OPHTHA LMIC ACTIVE 01/17/2026 [id number] 5 OCTAVIANO GREENE 2024 30 [facility] CARBOXYMETH YLCELLULOSE NA 0.25% SOLN,OPH INSTILL 2 DROPS IN OPERATIV E EYE EVERY 2 HOURS NEEDED FOR DRY EYES OPHTHA LMIC DISCONT INUED 10/06/2025 [id number] 5 VERÓNICA PRATT 2024 30 [facility] CARBOXYMETH YLCELLULOSE NA 0.25% SOLN,OPH INSTILL 2 DROPS IN OPERATIV E EYE EVERY 2 HOURS NEEDED FOR DRY EYES OPHTHA LMIC DISCONT INUED 07/19/2025 [id number] 5 VERÓNICA PRATT 2023 30 [facility] CARBOXYMETH YLCELLULOSE NA 0.25% SOLN,OPH INSTILL 2 DROPS IN OPERATIV E EYE EVERY 2 HOURS NEEDED FOR DRY EYES OPHTHA LMIC DISCONT INUED 04/07/2025 [id number] 4 VERÓNICA PRATT 2023 30 [facility] CHOLECALCIF BELA 25MCG (1,000UNIT) TAB TAKE ONE TABLET BY MOUTH EVERY DAY ORAL SUSPEND ED 04/06/2026 [id number] 5 VERÓNICA PRATT 2024 100 [facility] CHOLECALCIF BELA 25MCG (1,000UNIT) TAB TAKE ONE TABLET BY MOUTH EVERY DAY ORAL DISCONT INUED 10/06/2025 [id number] 5 VERÓNICA PRATT 2024 100 [facility] CHOLECALCIF BELA 25MCG (1,000UNIT) TAB TAKE ONE TABLET BY MOUTH EVERY DAY ORAL DISCONT INUED 10/11/2024 [id number] 4 VERÓNICA PRATT 2023 100 [facility] CYANOCOBALA MIN 500MCG TAB TAKE ONE TABLET BY MOUTH EVERY DAY FOR B12 SUPPLEME NT ORAL SUSPEND ED 09/12/2025 [id number] 5 VERÓNICA PRATT 2024 100 [facility] [place] [facility] DICLOFENAC NA 1% GEL,TOP APPLY 2 GRAMS TOPICALL Y THREE TIMES A DAY NEEDED FOR FOOT PAIN TOPICA L ACTIVE 04/06/2026 [id number] 5 VERÓNICA PRATT 2024 200 [facility] DICLOFENAC NA 1% GEL,TOP APPLY 2 GRAMS TOPICALL Y THREE TIMES A DAY NEEDED FOR FOOT PAIN TOPICA L DISCONT INUED 01/13/2026 [id number] 5 [facility]ÓNICA PRATT 2024 200 [facility] DICLOFENAC NA 1% GEL,TOP APPLY 2 GRAMS TOPICALL Y THREE TIMES A DAY NEEDED FOOT PAIN TOPICA L DISCONT INUED (EDIT) 10/06/2025 [id number] 5 VERÓNICA PRATT 2024 100 [facility] [place] [facility] DICLOFENAC NA 1% GEL,TOP APPLY 2 GRAMS TOPICALL Y THREE TIMES A DAY NEEDED FOOT PAIN TOPICA L DISCONT INUED 03/24/2025 [id number] Tiffany CHAVARRIA 2023 100 [place] [facility] DICLOFENAC NA 1% GEL,TOP APPLY 2 GRAMS TOPICALL Y THREE TIMES A DAY NEEDED FOOT PAIN TOPICA L DISCONT INUED 12/23/2024 [id number] Tiffany CHAVARRIA 2023 100 [facility] [facility] FLUTICASONE 500MCG/SALM ETEROL 50MCG INHL,ORAL,D ISKUS,60 INHALE 1 PUFF BY INHALATI ON TWICE A DAY FOR COPD *RINSE MOUTH AFTER EACH USE* RESPIR ATORY (INHAL ATION) SUSPEND ED 04/06/2026 [id number] 5 VERÓNICA PRATT ER 2024 3 [facility] FLUTICASONE 500MCG/SALM ETEROL 50MCG INHL,ORAL,D ISKUS,60 INHALE 1 PUFF BY INHALATI ON TWICE A DAY FOR COPD *RINSE MOUTH AFTER EACH USE* RESPIR ATORY (INHAL ATION) DISCONT INUED 10/06/2025 [id number] 5 VERÓNICA PRATT 2024 3 [facility] FLUTICASONE 500MCG/SALM ETEROL 50MCG INHL,ORAL,D ISKUS,60 INHALE 1 PUFF BY INHALATI ON TWICE A DAY FOR COPD *RINSE MOUTH AFTER EACH USE* RESPIR ATORY (INHAL ATION) DISCONT INUED 10/11/2024 [id number] 4 VERÓNICA PRATT 2023 3 [facility] FLUTICASONE PROPIONATE 50MCG/SPRAY SOLN,NASAL, 16GM SPRAY 2 SPRAYS IN EACH NOSTRIL EVERY DAY FOR CONGESTI ON NASAL SUSPEND ED 10/06/2025 [id number] 5 VERÓNICA PRATT 2024 3 [facility] FLUTICASONE PROPIONATE 50MCG/SPRAY SOLN,NASAL, 16GM SPRAY 2 SPRAYS IN EACH NOSTRIL EVERY DAY FOR CONGESTI ON NASAL DISCONT INUED 04/07/2025 [id number] 5 VERÓNICA PRATT 2023 3 [facility] FLUTICASONE PROPIONATE 50MCG/SPRAY SOLN,NASAL, 16GM SPRAY 2 SPRAYS IN EACH NOSTRIL EVERY DAY FOR CONGESTI ON NASAL DISCONT INUED 10/11/2024 [id number] 4 VERÓNICA PRATT 2023 3 [facility] FOLIC ACID 1MG TAB TAKE ONE TABLET BY MOUTH EVERY DAY FOR FOLIC ACID SUPPLEME NT ORAL ACTIVE 04/24/2026 [id number] 5 [facility]ICA PRATT 2024 90 [facility] FUROSEMIDE 40MG TAB TAKE ONE TABLET BY MOUTH EVERY DAY FOR EXCESS FLUID ORAL DISCONT INUED BY PROVIDE R 04/18/2024 [id number] 4 SHRUTHI RODRIGUEZ 2023 8 [facility] GABAPENTIN 300MG CAP TAKE TWO CAPSULES BY MOUTH TWICE A DAY FOR NERVE PAIN IN HANDS ORAL DISCONT INUED (EDIT) 10/11/2024 [id number] 4 VERÓNICA PRATT 2023 360 [facility] [place] [facility] GABAPENTIN 600MG TAB TAKE ONE TABLET BY MOUTH TWICE A DAY FOR PAIN AND NUMBNESS ORAL ACTIVE 04/06/2026 [id number] 5 MASHAVERÓNICA 2024 180 [facility] GABAPENTIN 600MG TAB TAKE ONE TABLET BY MOUTH TWICE A DAY FOR PAIN AND NUMBNESS ORAL DISCONT INUED 10/06/2025 [id number] 5 MASHAVERÓNICA 2024 180 [facility] GABAPENTIN 600MG TAB TAKE ONE TABLET BY MOUTH TWICE A DAY FOR PAIN AND NUMBNESS ORAL DISCONT INUED 06/01/2025 [id number] 4 MASHAVERÓNICA 2023 [address] [facility] GUAIFENESIN 200MG TAB TAKE ONE TABLET BY MOUTH THREE TIMES A DAY NEEDED FOR PHLEM ORAL ACTIVE 04/06/2026 [id number] 5 MASHAVERÓNICA 2024 100 [facility] GUAIFENESIN 200MG TAB TAKE ONE TABLET BY MOUTH THREE TIMES A DAY NEEDED FOR PHLEM ORAL DISCONT INUED 10/06/2025 [id number] 5 MASHAVERÓNICA 2024 100 [facility] HYDROCHLORO THIAZIDE 25MG TAB TAKE ONE TABLET BY MOUTH EVERY DAY FOR BLOOD PRESSURE NEW STRENGTH ORAL DISCONT INUED BY PROVIDE R 04/07/2025 [id number] 4 [facility] 2023 90 [facility] HYDROCHLORO THIAZIDE 25MG TAB TAKE ONE TABLET BY MOUTH EVERY DAY FOR BLOOD PRESSURE NEW STRENGTH ORAL DISCONT INUED 10/11/2024 [id number] 4 [facility] 2023 90 [place] [facility] LIDOCAINE 5% OINT,TOP APPLY MODERATE AMOUNT TOPICALL Y THREE TIMES A DAY NEEDED FOR PAIN TOPICA L ACTIVE 04/06/2026 [id number] 5 [facility] 2024 210 [place] [facility] LIDOCAINE 5% OINT,TOP APPLY MODERATE AMOUNT TOPICALL Y THREE TIMES A DAY NEEDED FOR PAIN TOPICA L DISCONT INUED (EDIT) 09/12/2025 [id number] 5 [facility] 2024 105 [place] [facility] LIDOCAINE 5% OINT,TOP APPLY MODERATE AMOUNT TOPICALL Y THREE TIMES A DAY NEEDED FOR PAIN TOPICA L DISCONT INUED 04/07/2025 [id number] 4 [facility] 2023 105 [place] [facility] LIDOCAINE 5% PATCH APPLY 1 PATCH TOPICALL Y EVERY DAY NEEDED FOR UP TO 12 HOURS FOR PAIN TOPICA L ACTIVE 02/16/2026 [id number] 5 [facility] 2024 30 [place] LIDOCAINE 5% PATCH APPLY 1 PATCH TOPICALL Y EVERY DAY NEEDED TOPICA L DISCONT INUED 09/12/2025 [id number] 5 [facility] 2024 30 [facility] LIDOCAINE 5% PATCH APPLY 1 PATCH TOPICALL Y EVERY DAY NEEDED TOPICA L DISCONT INUED 04/07/2025 [id number] [facility] 2023 30 [place] [facility] NITROGLYCER IN 0.4MG TAB,SUBLING UAL DISSOLVE ONE TABLET UNDER THE TONGUE EVERY 5 MINUTES FOR UP TO 3 DOSES IF NEEDED FOR CHEST PAIN SUBLIN GUAL ACTIVE 04/06/2026 [id number] 5 [facility] 2024 100 [place] [facility] POTASSIUM CHLORIDE 20MEQ TAB,SA (DISPERSIBL E) TAKE ONE TABLET BY MOUTH EVERY DAY FOR ERMA [place] SUPPLEME NT ORAL ACTIVE 04/06/2026 [id number] 5 [facility] 2024 90 [place] [facility] POTASSIUM CHLORIDE 20MEQ TAB,SA (DISPERSIBL E) TAKE ONE TABLET BY MOUTH EVERY DAY FOR ERMA [place] SUPPLEME NT ORAL DISCONT INUED 10/06/2025 [id number] 5 [facility] 2024 90 [place] [facility] POTASSIUM CHLORIDE 20MEQ TAB,SA (DISPERSIBL E) TAKE ONE TABLET BY MOUTH EVERY DAY FOR ERMA [place] SUPPLEME NT ORAL DISCONT INUED 06/01/2025 [id number] [facility] 2023 90 [facility] RIVAROXABAN 20MG TAB TAKE ONE TABLET BY MOUTH EVERY DAY WITH THE LARGEST MEAL OF THE DAY TO TREAT AND/OR PREVENT BLOOD CLOTS ORAL SUSPEND ED 01/12/2026 [id number] 5 Jovi DE LEON S 2024 90 [facility] RIVAROXABAN 20MG TAB TAKE ONE TABLET BY MOUTH EVERY DAY WITH THE LARGEST MEAL OF THE DAY TO TREAT AND/OR PREVENT BLOOD CLOTS ORAL DISCONT INUED 03/01/2025 [id number] 5 Jovi DE LEON S 2023 90 [facility] SERTRALINE HCL 100MG TAB TAKE TWO TABLETS BY MOUTH EVERY DAY FOR DEPRESSI ON and PTSD ORAL SUSPEND ED 02/16/2026 [id number] 5 IDALIA HALEY 2024 180 [facility] SERTRALINE HCL 100MG TAB TAKE TWO TABLETS BY MOUTH EVERY DAY FOR DEPRESSI ON and PTSD ORAL DISCONT INUED 06/05/2025 [id number] 5 IDALIA HALEY B 2023 180 [facility] [facility] TELMISARTAN 20MG TAB TAKE ONE TABLET BY MOUTH EVERY DAY FOR BLOOD PRESSURE ORAL SUSPEND ED 04/06/2026 [id number] 5 VERÓNICA PRATT 2024 90 [facility] TELMISARTAN 20MG TAB TAKE ONE TABLET BY MOUTH EVERY DAY FOR BLOOD PRESSURE ORAL DISCONT INUED 08/26/2025 [id number] 5 VERÓNICA PRATT 2023 90 [facility] TELMISARTAN 20MG TAB TAKE ONE TABLET BY MOUTH EVERY DAY FOR BLOOD PRESSURE ORAL DISCONT INUED (EDIT) 05/10/2025 [id number] 4 VERÓNICA PRATT 2023 30 [facility] TIOTROPIUM 2.5MCG/ACTU AT INHL,ORAL,6 0D,4GM INHALE TWO PUFFS BY INHALATI ON EVERY DAY FOR COPD RESPIR ATORY (INHAL ATION) ACTIVE 04/06/2026 [id number] 5 VERÓNICA PRATT 2024 3 [facility] TIOTROPIUM 2.5MCG/ACTU AT INHL,ORAL,6 0D,4GM INHALE TWO PUFFS BY INHALATI ON EVERY DAY FOR COPD RESPIR ATORY (INHAL ATION) DISCONT INUED 11/11/2025 [id number] 5 VERÓNICA PRATT 2024 3 [facility] TIOTROPIUM 2.5MCG/ACTU AT INHL,ORAL,6 0D,4GM INHALE TWO PUFFS BY INHALATI ON EVERY DAY FOR COPD RESPIR ATORY (INHAL ATION) DISCONT INUED 10/11/2024 [id number] 4 VERÓNICA PRATT 2023 3 [facility] TORSEMIDE 20MG TAB TAKE ONE TABLET BY MOUTH EVERY DAY FOR EXCESS FLUID ORAL SUSPEND ED 04/06/2026 [id number] 5 VERÓNICA PRATT 2024 90 [place] TORSEMIDE 20MG TAB TAKE ONE TABLET BY MOUTH EVERY DAY FOR EXCESS FLUID ORAL DISCONT INUED 10/06/2025 [id number] 5 [facility] VERÓNICA ER 2024 90 [facility] TORSEMIDE 20MG TAB TAKE ONE TABLET BY MOUTH EVERY DAY FOR EXCESS FLUID ORAL DISCONT INUED (EDIT) 09/12/2025 [id number] 5 [facility] ER 2024 30 [facility] TORSEMIDE 20MG TAB TAKE ONE TABLET BY MOUTH EVERY DAY FOR EXCESS FLUID ORAL DISCONT INUED 04/07/2025 [id number] [place] ER 2023 30 [facility] VANICREAM APPLY THIN LAYER TOPICALL Y DIRECTED FOR DRY SKIN TOPICA L ACTIVE 04/06/2026 [id number] 5 [facility] ER 2024 454 [facility] VANICREAM APPLY THIN LAYER TOPICALL Y DIRECTED FOR DRY SKIN TOPICA L DISCONT INUED 12/12/2025 [id number] 5 [facility] ER 2024 454 [facility] VANICREAM APPLY THIN LAYER TOPICALL Y DIRECTED FOR DRY SKIN TOPICA L DISCONT INUED 09/12/2025 [id number] 5 [facility] 2024 454 [facility] VANICREAM APPLY THIN LAYER TOPICALL Y DIRECTED FOR DRY SKIN TOPICA L DISCONT INUED 05/10/2025 [id number] 4 [facility] 2023 454 [facility] Allergies, Adverse Reactions, Alerts Combined list of allergies from Department of Defense and Veterans Affairs facilities. It does not include entries that were removed or entered in error. Substance Category Reaction Severity Reaction type Status Date Reported Comments Source CONTRAST MEDIA Propensity to adverse reactions to drug (finding) Eruption active 2 [place] [facility] FISH Propensity to adverse reactions to substance (finding) [facility] LISINOPRIL Propensity to adverse reactions to drug (finding) Hyperkalemi a active 8 [facility] LOBSTER Propensity to adverse reactions to food (finding) Nausea and vomiting active 7 [facility] METOPROLOL Propensity to adverse reactions to drug (finding) Bradycardia active 8 [facility] PENICILLIN Propensity to adverse reactions to drug (finding) HIVES active 4 [facility] SCALLOPS Propensity to adverse reactions to substance (finding) Nausea and vomiting active 7 [facility] SIMVASTATIN Propensity to adverse reactions to drug (finding) Itching, Facial swelling active 6 [facility] TOPIRAMATE Propensity to adverse reactions to drug (finding) Syncope active 4 [facility] ZOLPIDEM Propensity to adverse reactions to drug (finding) Disorientat ed active 4 [facility] Immunizations Combined list of available immunizations from the Department of Defense and Veterans Affairs facilities. Immunization Series Date Given Administered By Site Reaction Lot Number CVX Code Drug Resident Care Director Status Comments Source COVID-19 (eleni), MRNA, LNP-S, PF, CHERYL-SUCROSE, 30 MCG/0.3 ML (AGES 12+ YEARS) 2024 MITCH TOVAR M RIGHT DELTO ID [id number] 309 complet ed [facility] RSV, BIVALENT, PROTEIN SUBUNIT RSVPREF, DILUENT RECONSTITUTED , 0.5 ML, PF 2024 MITCH TOVAR M LEFT DELTO ID [id number] 305 complet ed [facility] COVID-19 (eleni), MRNA, LNP-S, PF, CHERYL-SUCROSE, 30 MCG/0.3 ML (AGES 12+ YEARS) 2023 KRISTIN KEYS LEFT DELTO ID [id number] 309 complet ed [facility] INFLUENZA, HIGH-DOSE, TRIVALENT, PF 2023 KRISTIN KEYS LEFT DELTO ID [id number] 135 complet ed [facility] COVID-19 (eleni), MRNA, LNP-S, PF, CHERYL-SUCROSE, 30 MCG/0.3 ML (AGES 12+ YEARS) 1 2022 CARMEN STEIN R RIGHT DELTO ID [id number] 309 complet ed [facility] INFLUENZA, HIGH-DOSE, QUADRIVALENT [address] R RIGHT DELTO ID [id number] 197 complet ed [id number] 115 complet ed [facility] COVID-19 ([facility]), MRNA, LNP-S, BIVALENT BOOSTER, PF, 30 MCG/0.3 ML DOSE 1 2021 SAMANTHA PRECIADO LEFT DELTO ID [id number] 300 complet ed [facility] INFLUENZA VACCINE, QUADRIVALENT, ADJUVANTED 2021 205 complet ed [facility] COVID-19 (eleni), MRNA, LNP-S, PF, 30 MCG/0.3 ML DOSE, CHERYL-SUCROSE (AGES 12+ YEARS) 3 2021 217 complet ed PFR; [id number]; 2 [facility] COVID-19 (eleni), MRNA, LNP-S, PF, 30 MCG/0.3 ML DOSE 3 2020 208 complet ed [facility] INFLUENZA, INJECTABLE, QUADRIVALENT, PRESERVATIVE FREE 2020 150 complet ed [facility] COVID-19 (eleni), MRNA, LNP-S, PF, 30 MCG/0.3 ML DOSE 2 2020 208 complet ed PFR; [id number]; 1 [facility] COVID-19 (eleni), MRNA, LNP-S, PF, 30 MCG/0.3 ML DOSE 1 2020 208 complet ed PFR; [id number]; 1 [facility] INFLUENZA, INJECTABLE, QUADRIVALENT, PRESERVATIVE FREE 2019 150 complet ed [facility] INFLUENZA, SEASONAL, INJECTABLE, PRESERVATIVE FREE 2018 140 complet ed [facility]OSTER RECOMBINANT 2 2018 187 complet ed [facility] RECOMBINANT 1 2018 187 complet ed [facility] INFLUENZA, SEASONAL, INJECTABLE, PRESERVATIVE FREE 2017 140 complet ed [facility] INFLUENZA, HIGH DOSE SEASONAL 2016 135 complet ed [facility] INFLUENZA, HIGH DOSE SEASONAL 2015 135 complet ed [facility] INFLUENZA, SEASONAL, INJECTABLE, PRESERVATIVE FREE 2014 140 complet ed [facility] PNEUMOCOCCAL CONJUGATE PCV 13 2014 133 complet ed wyeth;l99 262;10/16 [facility] INFLUENZA, UNSPECIFIED FORMULATION 2013 88 complet ed [facility] INFLUENZA, UNSPECIFIED FORMULATION 2012 88 complet ed [facility] TDAP 2012 115 complet ed glaxosmit hkline;ac [id number]; 5 [facility] INFLUENZA, UNSPECIFIED FORMULATION 2011 88 complet ed [facility] LIVE 2011 121 complet ed [employer] [id number], 02/18/13 [facility] PNEUMOCOCCAL, UNSPECIFIED FORMULATION 2011 109 complet ed [employer] [id number] [facility] INFLUENZA, UNSPECIFIED FORMULATION 2010 88 complet ed [facility] INFLUENZA, UNSPECIFIED FORMULATION 2009 88 complet ed [facility] NOVEL INFLUENZA-H1N 1-09, ALL FORMULATIONS 2009 128 complet ed HISTORICA L INFORMATI ON - FROM OTHER REGISTRY, [facility] NOVEL INFLUENZA-H1N 1-09, ALL FORMULATIONS 2009 128 complet ed [facility] INFLUENZA, UNSPECIFIED FORMULATION 2008 88 complet ed [facility] INFLUENZA, UNSPECIFIED FORMULATION 2007 88 complet ed [facility] INFLUENZA, UNSPECIFIED FORMULATION 2006 88 complet ed [facility] INFLUENZA, UNSPECIFIED FORMULATION 2005 88 complet ed [facility] INFLUENZA, UNSPECIFIED FORMULATION 2004 88 complet ed [facility] INFLUENZA, UNSPECIFIED FORMULATION 2003 ZALLAR,ELIZABETH 88 complet [facility] INFLUENZA, UNSPECIFIED FORMULATION 2002 88 complet [facility] PNEUMOCOCCAL, UNSPECIFIED FORMULATION 2002 109 complet [facility] TD(ADULT) UNSPECIFIED FORMULATION 2002 139 complet [facility] INFLUENZA, UNSPECIFIED FORMULATION 1998 STAFF,NURSE 88 complet [facility] INFLUENZA (HISTORICAL) 1996 STAFF,NURSE 88 complet [facility] Results Combined list of recent chemistry, hematology [...] Apr 16, 2025 09:52 AM Reporting Lab: [facility] [address] Performing Lab: [facility] [address] [facility] ELP/IMMF IX,SERUM PANEL ALBUMIN [MASS/VOLU ME] IN SERUM OR PLASMA BY ELECTROPHO RESIS 4.47 g/dL 3.66 - 4.78 04/16 Specimen Type: SERUM No comment entered. Ordering Provider: DWAYNE EUBANKS Report Released Date/Time: Apr 16, 2025 09:52 AM Reporting Lab: [facility] [address] Performing Lab: [facility] [address] [facility] IS [facility] ELP/IMMF IX,SERUM PANEL ALPHA 1 GLOBULIN [MASS/VOLU ME] IN SERUM OR PLASMA BY ELECTROPHO RESIS 0.32 g/dL 0.14 - 0.38 04/16 Specimen Type: SERUM No comment entered. Ordering Provider: DWAYNE EUBANKS Report Released Date/Time: Apr 16, 2025 09:52 AM Reporting Lab: [facility] [address] Performing Lab: [facility] [address] [place] [facility] ELP/IMMF IX,SERUM PANEL ALPHA 2 GLOBULIN [MASS/VOLU ME] IN SERUM OR PLASMA BY ELECTROPHO RESIS 0.97 g/dL 0.50 - 0.90 04/16 H Specimen Type: SERUM No comment entered. Ordering Provider: DWAYNE EUBANKS Report Released Date/Time: Apr 16, 2025 09:52 AM Reporting Lab: [facility] [address] Performing Lab: [facility] [address] [place] [facility] ELP/IMMF IX,SERUM PANEL BETA 1 GLOBULIN [MASS/VOLU ME] IN SERUM OR PLASMA BY ELECTROPHO RESIS 0.51 g/dL 0.33 - 0.55 04/16 Specimen Type: SERUM No comment entered. Ordering Provider: DWAYNE EUBANKS Report Released Date/Time: Apr 16, 2025 09:52 AM Reporting Lab: [facility] [address] Performing Lab: [facility] [address] [place] [facility] ELP/IMMF IX,SERUM PANEL BETA 2 GLOBULIN [MASS/VOLU ME] IN SERUM OR PLASMA BY ELECTROPHO RESIS 0.54 g/dL 0.20 - 0.52 04/16 H Specimen Type: SERUM No comment entered. Ordering Provider: DWAYNE EUBANKS Report Released Date/Time: Apr 16, 2025 09:52 AM Reporting Lab: [facility] [address] Performing Lab: [facility] [address] [place] [facility] ELP/IMMF IX,SERUM PANEL GAMMA GLOBULIN [MASS/VOLU ME] IN SERUM OR PLASMA BY ELECTROPHO RESIS 1.59 g/dL 0.58 - 1.72 04/16 Specimen Type: SERUM No comment entered. Ordering Provider: DWAYNE EUBANKS Report Released Date/Time: Apr 16, 2025 09:52 AM Reporting Lab: [facility] [address] Performing Lab: [place] [address] [place] [facility] ELP/IMMF IX,SERUM PANEL PROTEIN [MASS/VOLU ME] IN SERUM OR PLASMA 8.4 g/dL 6.4 - 8.3 04/16 H Specimen Type: SERUM No comment entered. Ordering Provider: DWAYNE EUBANKS Report Released Date/Time: Apr 16, 2025 09:52 AM Reporting Lab: [facility] [address] Performing Lab: [facility] [address] [facility] IS [facility] ELP/IMMF IX,SERUM PANEL IMMUNOELEC TROPHORESI S FOR SERUM OR PLASMA NO MONOCLON ALS DETECTED 04/16 Specimen Type: SERUM No comment entered. Ordering Provider: DWAYNE EUBANKS Report Released Date/Time: Apr 16, 2025 09:52 AM Reporting Lab: [facility] [address] Performing Lab: [facility] [address] GEN IS [facility] ISMAEL WITH REFLEX TO MORIAH/DNA NUCLEAR AB [PRESENCE] IN SERUM NEGATIVE 04/16 Specimen Type: SERUM No comment entered. Ordering Provider: DWAYNE EUBANKS Report Released Date/Time: Apr 16, 2025 09:52 AM Reporting Lab: [facility] [address] Performing Lab: [facility] [address] GEN IS [facility] B 12 COBALAMIN (VITAMIN B12) [MASS/VOLU ME] IN SERUM OR PLASMA 387 pg/mL 213 - 816 04/05 Specimen Type: SERUM No comment entered. Ordering Provider: PJ PRATT Report Released Date/Time: Oct 05, 2024 08:40 AM Reporting Lab: [facility] [address] Performing Lab: [facility] [address] GEN IS [facility] BNP NATRIURETI C PEPTIDE B [MASS/VOLU ME] IN SERUM OR PLASMA 104 pg/mL <99 - 99 04/05 H Specimen Type: PLASMA No comment entered. Ordering Provider: PJ PRATT Report Released Date/Time: Oct 05, 2024 08:40 AM Reporting Lab: [facility] [address] Performing Lab: [facility] [address] GEN IS [facility] CBC LEUKOCYTES [#/VOLUME] IN BLOOD BY AUTOMATED COUNT 3.3 4.0 - 11.0 04/05 L Specimen Type: BLOOD No comment entered. Ordering Provider: PJ PRATT Report Released Date/Time: Oct 05, 2024 08:40 AM Reporting Lab: [facility] [address] Performing Lab: [facility] [address] GEN IS [facility] CBC ERYTHROCYT ES [#/VOLUME] IN BLOOD BY AUTOMATED COUNT 3.72 4.60 - 6.20 04/05 L Specimen Type: BLOOD No comment entered. Ordering Provider: PJ PRATT Report Released Date/Time: Oct 05, 2024 08:40 AM Reporting Lab: [facility] [address] Performing Lab: [facility] [address] GEN IS [facility] CBC HEMOGLOBIN [MASS/VOLU ME] IN BLOOD 11.4 g/dL 13.5 - 17.9 04/05 L Specimen Type: BLOOD No comment entered. Ordering Provider: PJ PRATT Report Released Date/Time: Oct 05, 2024 08:40 AM Reporting Lab: [facility] [address] Performing Lab: [facility] [address] GEN IS [facility] CBC HEMATOCRIT [VOLUME FRACTION] OF BLOOD BY AUTOMATED COUNT 34.6 41.0 - 54.0 04/05 L Specimen Type: BLOOD No comment entered. Ordering Provider: PJ PRATT Report Released Date/Time: Oct 05, 2024 08:40 AM Reporting Lab: [facility] [address] Performing Lab: [facility] [address] GEN IS [facility] CBC MCV [ENTITIC VOLUME] BY AUTOMATED COUNT 93.0 fL 80.0 - 100.0 04/05 Specimen Type: BLOOD No comment entered. Ordering Provider: PJ PRATT Report Released Date/Time: Oct 05, 2024 08:40 AM Reporting Lab: [facility] [address] Performing Lab: [facility] [address] GEN IS [facility] CBC MCH [ENTITIC MASS] BY AUTOMATED COUNT 30.6 pg 27.0 - 33.0 04/05 Specimen Type: BLOOD No comment entered. Ordering Provider: PJ PRATT Report Released Date/Time: Oct 05, 2024 08:40 AM Reporting Lab: [facility] [address] Performing Lab: [facility] [address] GEN IS [facility] CBC MCHC [MASS/VOLU ME] BY AUTOMATED COUNT 32.9 g/dL 32.0 - 37.5 04/05 Specimen Type: BLOOD No comment entered. Ordering Provider: PJ PRATT Report Released Date/Time: Oct 05, 2024 08:40 AM Reporting Lab: [facility] [address] Performing Lab: [facility] [address] [facility] IS [facility] CBC PLATELETS [#/VOLUME] IN BLOOD BY AUTOMATED COUNT 136 150 - 400 04/05 L Specimen Type: BLOOD No comment entered. Ordering Provider: PJ PRATT Report Released Date/Time: Oct 05, 2024 08:40 AM Reporting Lab: [facility] [address] Performing Lab: [facility] [address] [facility] CBC PLATELET MEAN VOLUME [ENTITIC VOLUME] IN BLOOD BY AUTOMATED COUNT 9.8 fL 9.1 - 13.0 04/05 Specimen Type: BLOOD No comment entered. Ordering Provider: PJ PRATT Report Released Date/Time: Oct 05, 2024 08:40 AM Reporting Lab: [facility] [address] Performing Lab: [facility] [address] [facility] CBC ERYTHROCYT E DISTRIBUTI ON WIDTH [RATIO] BY AUTOMATED COUNT 15.3 11.5 - 14.5 04/05 H Specimen Type: BLOOD No comment entered. Ordering Provider: PJ PRATT Report Released Date/Time: Oct 05, 2024 08:40 AM Reporting Lab: [facility] [address] Performing Lab: [facility] [address] [place] [facility] COMPREHE NSIVE METABOLI C PANEL+MG CREATININE [MASS/VOLU ME] IN SERUM OR PLASMA 2.0 mg/dL 0.7 - 1.2 04/05 H Specimen Type: PLASMA No comment entered. Ordering Provider: PJ PRATT Report Released Date/Time: Oct 05, 2024 08:40 AM Reporting Lab: [facility] [address] Performing Lab: [facility] [address] [place] [facility] COMPREHE NSIVE METABOLI C PANEL+MG UREA NITROGEN [MASS/VOLU ME] IN SERUM OR PLASMA 36 mg/dL 8 - 26 04/05 H Specimen Type: PLASMA No comment entered. Ordering Provider: PJ PRATT Report Released Date/Time: Oct 05, 2024 08:40 AM Reporting Lab: [facility] [address] Performing Lab: [facility] [address] [place] [facility] COMPREHE NSIVE METABOLI C PANEL+MG GLUCOSE [MASS/VOLU ME] IN SERUM OR PLASMA 85 mg/dL 70 - 100 04/05 Specimen Type: PLASMA No comment entered. Ordering Provider: PJ PRATT Report Released Date/Time: Oct 05, 2024 08:40 AM Reporting Lab: [facility] [address] Performing Lab: [facility] [address] [place] [facility] COMPREHE NSIVE METABOLI C PANEL+MG SODIUM [MOLES/VOL UME] IN SERUM OR PLASMA 136 mmol/L 136 - 145 04/05 Specimen Type: PLASMA No comment entered. Ordering Provider: PJ PRATT Report Released Date/Time: Oct 05, 2024 08:40 AM Reporting Lab: [facility] [address] Performing Lab: [facility] [address] [place] [facility] COMPREHE NSIVE METABOLI C PANEL+MG POTASSIUM [MOLES/VOL UME] IN SERUM OR PLASMA 4.5 mmol/L 3.5 - 5.1 04/05 Specimen Type: PLASMA No comment entered. Ordering Provider: PJ PRATT Report Released Date/Time: Oct 05, 2024 08:40 AM Reporting Lab: [facility] [address] Performing Lab: [facility] [address] GEN IS [facility] COMPREHE NSIVE METABOLI C PANEL+MG CHLORIDE [MOLES/VOL UME] IN SERUM OR PLASMA 100 mmol/L 98 - 107 04/05 Specimen Type: PLASMA No comment entered. Ordering Provider: PJ PRATT Report Released Date/Time: Oct 05, 2024 08:40 AM Reporting Lab: [facility] [address] Performing Lab: [facility] [address] GEN IS [facility] COMPREHE NSIVE METABOLI C PANEL+MG CARBON DIOXIDE, TOTAL [MOLES/VOL UME] IN SERUM OR PLASMA 28 mmol/L 22 - 29 04/05 Specimen Type: PLASMA No comment entered. Ordering Provider: PJ PRATT Report Released Date/Time: Oct 05, 2024 08:40 AM Reporting Lab: [facility] [address] Performing Lab: [facility] [address] GEN IS [facility] COMPREHE NSIVE METABOLI C PANEL+MG CALCIUM [MASS/VOLU ME] IN SERUM OR PLASMA 8.9 mg/dL 8.4 - 10.2 04/05 Specimen Type: PLASMA No comment entered. Ordering Provider: PJ PRATT Report Released Date/Time: Oct 05, 2024 08:40 AM Reporting Lab: [facility] [address] Performing Lab: [facility] [address] GEN IS [facility] COMPREHE NSIVE METABOLI C PANEL+MG PROTEIN [MASS/VOLU ME] IN SERUM OR PLASMA 7.0 g/dL 6.4 - 8.3 04/05 Specimen Type: PLASMA No comment entered. Ordering Provider: PJ PRATT Report Released Date/Time: Oct 05, 2024 08:40 AM Reporting Lab: [facility] [address] Performing Lab: [facility] [address] GEN IS [facility] COMPREHE NSIVE METABOLI C PANEL+MG ALBUMIN [MASS/VOLU ME] IN SERUM OR PLASMA 4.0 g/dL 3.5 - 5.0 04/05 Specimen Type: PLASMA No comment entered. Ordering Provider: PJ PRATT Report Released Date/Time: Oct 05, 2024 08:40 AM Reporting Lab: [facility] [address] Performing Lab: [facility] [address] GEN IS [facility] COMPREHE NSIVE METABOLI C PANEL+MG BILIRUBIN. TOTAL [MASS/VOLU ME] IN SERUM OR PLASMA 0.6 mg/dL 0.2 - 1.2 04/05 Specimen Type: PLASMA No comment entered. Ordering Provider: PJ PRATT Report Released Date/Time: Oct 05, 2024 08:40 AM Reporting Lab: [facility] [address] Performing Lab: [facility] [address] GEN IS [facility] COMPREHE NSIVE METABOLI C PANEL+MG MAGNESIUM [MASS/VOLU ME] IN SERUM OR PLASMA 2.1 mg/dL 1.6 - 2.6 04/05 Specimen Type: PLASMA No comment entered. Ordering Provider: PJ PRATT Report Released Date/Time: Oct 05, 2024 08:40 AM Reporting Lab: [facility] [address] Performing Lab: [facility] [address] [place] [facility] COMPREHE NSIVE METABOLI C PANEL+MG ANION GAP IN SERUM OR PLASMA 8 mmol/L 5 - 15 04/05 Specimen Type: PLASMA No comment entered. Ordering Provider: PJ PRATT Report Released Date/Time: Oct 05, 2024 08:40 AM Reporting Lab: [facility] [address] Performing Lab: [facility] [address] GEN IS [facility] COMPREHE NSIVE METABOLI C PANEL+MG ALKALINE PHOSPHATAS E [ENZYMATIC ACTIVITY/V OLUME] IN SERUM OR PLASMA 64 U/L 40 - 150 04/05 Specimen Type: PLASMA No comment entered. Ordering Provider: PJ PRATT Report Released Date/Time: Oct 05, 2024 08:40 AM Reporting Lab: [facility] [address] Performing Lab: [facility] [address] GEN IS [facility] COMPREHE NSIVE METABOLI C PANEL+MG ALANINE AMINOTRANS FERASE [ENZYMATIC ACTIVITY/V OLUME] IN SERUM OR PLASMA 8 U/L <44 - 44 04/05 Specimen Type: PLASMA No comment entered. Ordering Provider: PJ PRATT Report Released Date/Time: Oct 05, 2024 08:40 AM Reporting Lab: [facility] [address] Performing Lab: [facility] [address] GEN IS [facility] COMPREHE NSIVE METABOLI C PANEL+MG ASPARTATE AMINOTRANS FERASE [ENZYMATIC ACTIVITY/V OLUME] IN SERUM OR PLASMA 18 U/L 11 - 34 04/05 Specimen Type: PLASMA No comment entered. Ordering Provider: PJ PRATT Report Released Date/Time: Oct 05, 2024 08:40 AM Reporting Lab: [facility] [address] Performing Lab: [facility] [address] GEN IS [facility] COMPREHE NSIVE METABOLI C PANEL+MG GLOMERULAR FILTRATION RATE/1.73 SQ M.PREDICTE D [VOLUME RATE/AREA] IN SERUM, PLASMA OR BLOOD BY CREATININE -BASED FORMULA (CKD-EPI 2020) 33 60 04/05 L Specimen Type: PLASMA No comment entered. Ordering Provider: PJ PRATT Report Released Date/Time: Oct 05, 2024 08:40 AM Reporting Lab: [facility] [address] Performing Lab: [facility] [address] GEN IS [facility] FERRITIN FERRITIN [MASS/VOLU ME] IN SERUM OR PLASMA 447.3 ng/mL 21.8 - 274.7 04/05 H Specimen Type: SERUM No comment entered. Ordering Provider: PJ PRATT Report Released Date/Time: Oct 05, 2024 08:40 AM Reporting Lab: [facility] [address] Performing Lab: [facility] [address] GEN IS [facility] FOLATE FOLATE [MASS/VOLU ME] IN SERUM OR PLASMA 2.8 ng/mL 7.0 04/05 L Specimen Type: SERUM No comment entered. Ordering Provider: PJ PRATT Report Released Date/Time: Oct 05, 2024 08:40 AM Reporting Lab: [facility] [address] Performing Lab: [facility] [address] [facility] TSH W/REFLEX TO FREE T4 THYROTROPI N [UNITS/VOL UME] IN SERUM OR PLASMA 1.74 u[IU]/mL 0.35 - 4.94 04/05 Specimen Type: PLASMA No comment entered. Ordering Provider: PJ PRATT Report Released Date/Time: Oct 05, 2024 08:40 AM Reporting Lab: [facility] [address] Performing Lab: [facility] [address] [facility] VIT D 25-OH,TO ALISTAIR 25-HYDROXY VITAMIN D3 [MASS/VOLU ME] IN SERUM OR PLASMA 42 ng/mL 12 - 50 04/05 Specimen Type: SERUM No comment entered. Ordering Provider: PJ PRATT Report Released Date/Time: Oct 05, 2024 08:40 AM Reporting Lab: [facility] [address] Performing Lab: [facility] [address] [facility] Vital Signs Combined list of inpatient and outpatient Vital Signs from Department of Defense and Veterans Affairs, ranging from 12 months to all on record, depending upon the facility. Vital Sign Value Date Comments Source SYSTOLIC BLOOD PRESSURE 121 04/16/2025 08:25:31 [facility] DIASTOLIC BLOOD PRESSURE 72 04/16/2025 08:25:31 [place] [facility] SYSTOLIC BLOOD PRESSURE 142 09/05/2024 08:43:16 [facility] DIASTOLIC BLOOD PRESSURE 82 09/05/2024 08:43:16 [facility] TEMPERATURE 97.8 09/05/2024 08:43:16 [facility] PULSE 77 09/05/2024 08:43:16 [facility] Encounters Combined list of: 1) Encounters from Department of Veterans Affairs facilities going backup to the last 18 months, not all [place] inpatient encounters are included; 2) Encounters from the Department of [facility] facilities going backup to 280 months. Location Location Details Encounter Type Encounter Number Reason For Visit Attending Provider ADM Date DC Date Status Disposition Source [facility] OFFICE O/P [place] 60 MIN [id number] Diagnos is: ICD-10- CM G25.0 Essenti al tremor BRODIE EUBANKS E 11/04 [facility] [place] [facility] CONFORMITY EVALUATION [id number] Diagnos is: ICD-10- CM H90.3 Sensori neural hearing loss, bilater al DARNELL CASPER 11/14 [facility] [place] [facility] OFFICE O/P EST [place] 40 MIN [id number] Diagnos is: ICD-10- CM G47.33 Obstruc tive sleep apnea (adult) ([facility] jeffery) Jovi EDWARDS 12[facility] [place] [facility] OFF[place] O/[place] HI 40 MIN [id number] Diagnos is: ICD-10- CM G51.31 Clonic hemifac ial spasm, right BRODIE EUBANKS E 01/02 [facility] [place] [facility] Outpatient Encounter [id number] [facility] [place] [facility] Outpatient Encounter [id number] 01/04 [facility] [place] [facility] OFF/OP EST MAY X REQ PHY/QHP [id number] Diagnos is: ICD-10- CM Z86.010 Jagdish deras history of colonic polyps MANFRED CROCKERUrban GRAHAM H 01/04 [place] [facility] [place] [facility] OFF[place] O/[place] HI 40 MIN [id number] Diagnos is: ICD-10- CM J44.9 Chronic obstruc tive pulmona ry disease , unspeci ANTONIO Yo 01/05 [place] [facility] [place] [facility] Outpatient Encounter [id number] 01/09 [place] [facility] [place] [facility] Outpatient Encounter [id number] 01/10 [place] [facility] [place] [facility] Outpatient Encounter [id number] 01/12 [facility] [place] [facility] OFFICE O/P EST MOD 30 MIN [id number] Diagnos is: ICD-10- CM F33.8 Other recurre nt depress katherin disorde rs HALEY,PET ER B 01/13 [place] [facility] [place] [facility] Outpatient Encounter [id number] 01/13 [place] [facility] [place] [facility] OT EVAL LOW COMPLEX 30 MIN [id number] Diagnos is: ICD-10- CM G25.0 Essenti al tremor NURY,TYLER TLIN A 01/17 [place] [facility] [place] [facility] Outpatient Encounter [id number] 02/23 [place] [facility] [place] [facility] Outpatient Encounter [id number] 02/24 [place] [facility] [place] [facility] Outpatient Encounter [id number] Yessy WALL 02/26 [place] [facility] [place] [facility] Outpatient Encounter [id number] 02/27 [place] [facility] [place] [facility] Outpatient Encounter [id number] GRANTSHANA 02/[facility] Outpatient Encounter [id number] Diagnos is: ICD-10- CM J44.9 Chronic obstruc tive pulmona ry disease , unspeci fied LLOYD ROSENTHAL E 03/06 [facility] NEUROMUSCU LAR REEDUCATIO N [id number] Diagnos is: ICD-10- CM G25.0 Essenti al tremor TYLER ARRINGTON TLIN A 03/07 [facility] Outpatient Encounter [id number] 03/16 [facility] Outpatient Encounter [id number] 03/16 [facility] EMERGENCY DEPT VISIT MOD MDM [id number] Diagnos is: ICD-10- CM I50.21 Acute systoli c (conges tive) heart failure NABILA RODRIGUEZ ON K 03/19 [facility] NEUROMUSCU LAR REEDUCATIO N [id number] Diagnos is: ICD-10- CM G25.0 Essenti al tremor TYLER ARRINGTONIN A 03/23 [facility] [facility] OFFICE O/P EST MOD 30 MIN [id number] Diagnos is: ICD-10- CM G62.9 Polyneu ropathy , unspeci fied Fabiana PRATT HRISTOPHER 04/06 [facility] Outpatient Encounter [id number] 04/06 [facility] OFFICE O/P EST HI 40 MIN [id number] Diagnos is: ICD-10- CM G51.31 Clonic hemifac ial spasm, right CHA,LA UREN E 04/10 [facility] [place] [place] [facility] NEUROMUSCU LAR REEDUCATIO N [id number] [id number] Diagnos is: ICD-10- CM G25.0 Essenti al tremor TYLER ARRINGTON TLIN A 04/11 [facility] [place] [place] [facility] TTE W/DOPPLER COMPLETE [id number] [id number] Diagnos is: ICD-10- CM R06.02 Shortne ss of breath OCTAVIANO CHEW FAN 05/08 [facility] [place] [place] [facility] Outpatient Encounter [id number] 05/08 [facility] OFF/OP EST MAY X REQ PHY/QHP [id number] [id number] Diagnos is: ICD-10- CM R60.0 Localiz ed edema GRANT,AND NEW A 05/08 [facility] Outpatient Encounter [id number] 05/18 [facility] HEMOGLOBIN [id number] [id number] Diagnos is: ICD-10- CM J44.9 Chronic obstruc tive pulmona ry disease , unspeci fied TIERRA RONDON E 05/30 [facility] Outpatient Encounter [id number] 05/30 [facility] OFF/OP CONSLTJ NEW/EST HI 55 [id number] [id number] Diagnos is: ICD-10- CM I27.20 Pulmona ry hyperte nsion, unspeci fied GURU RIVERA E 05/30 [facility] OFFICE O/P EST MOD 30 MIN [id number] Diagnos is: ICD-10- CM F33.8 Other recurre nt depress katherin disorde rs HALEY,PET ER B 05/31 [facility] IS [facility] THERAPEUTIC RECREATION DIRECTOR/TUMBLER PLATER SERVICES UP TO 15MIN [id number] [id number] Diagnos is: ICD-10- CM Z13.9 Encount er for screeni ng, unspeci fied MARIN ALICEA RA 05/31 [facility] Outpatient Encounter [id number] 05/31 [facility] IS [facility] OFF/OP EST MAY X REQ PHY/QHP [id number] [id number] Diagnos is: ICD-10- CM I10 Essenti al (primar y) hyperte nsion GRANT,AND NEW A 05/31 [facility] IS [facility] Outpatient Encounter [id number] 07/07 [facility] IS [facility] Outpatient Encounter [id number] 07/12 [facility] IS [facility] Outpatient Encounter [id number] 07/13 [facility] IS [facility] OFFICE O/P EST MOD 30 MIN [id number] Diagnos is: ICD-10- CM 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, bilater al, moderat e stage JC,STEW ART J 07/14 [facility] IS [facility] EMERGENCY DEPT VISIT LOW MDM [id number] [id number] Diagnos is: ICD-10- CM S46.011 A Strain of musc/te nd the rotator cuff of right shoulde r, init TAYLOR,LES LIE A 07/14 [facility] IS [facility] Outpatient Encounter [id number] 07/20 [facility] IS [facility] HEMOGLOBIN [id number] [id number] Diagnos is: ICD-10- CM J44.9 Chronic obstruc tive pulmona ry disease , unspeci fied Jovi EDWARDS 07/20 [facility] [place] [place] [facility] Outpatient Encounter [id number] 07/20 [facility] OFFICE O/P EST HI 40 MIN [id number] Diagnos is: ICD-10- CM J44.9 Chronic obstruc tive pulmona ry disease , unspeci fied ANTONIO AREVALO 07/20 [facility] [place] [place] [facility] Outpatient Encounter [id number] 07/20 [facility] [place] [place] [facility] Outpatient Encounter [id number] 07/20 [facility] REPLACE SEMI PREC ATTACH [id number] [id number] Diagnos is: ICD-10- CM K08.109 Complet e loss of teeth, unspeci fied cause, unspeci fied class AGATHA FORD RY E 07/24 [facility] Outpatient Encounter [id number] 08/02 [facility] IS [facility] Outpatient Encounter [id number] 08/21 [facility] OFFICE O/P EST MOD 30 MIN [id number] [id number] Diagnos is: ICD-10- CM G51.31 Clonic hemifac ial spasm, right FARRUKH,BRADEN 08/22 [facility] [place] [place] [facility] Outpatient Encounter [id number] MAGALIE BUSTILLO 08/22 [facility] Outpatient Encounter [id number] 08/24 [facility] CLEAN/INSP ECT YADY COMP DENT [id number] Diagnos is: ICD-10- CM K08.109 Complet e loss of teeth, unspeci fied cause, unspeci fied class AGATHA FORD RY E 09/05 [facility] IS [facility] Outpatient Encounter [id number] 09/07 [facility] OFFICE O/P EST LOW 20 MIN [id number] Diagnos is: ICD-10- CM 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 TERRY,RY AN M 09/08 [facility] IS [facility] OFFICE O/P EST MOD 30 MIN [id number] [id number] Diagnos is: ICD-10- CM F43.12 Post-tr aumatic stress disorde r, chronic HALEY,PET ER B 09/27 [facility] UNLISTED SPEC DERM SVC/PX [id number] [id number] Diagnos is: ICD-10- CM Z13.89 Encount er for screeni ng for other disorde r RAFA GRAHAM A 09/27 [facility] Outpatient Encounter [id number] Diagnos is: ICD-10- CM 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, subcu of trunk ALONALINDASOFIARADHA JENNIFER L 09/29 [facility] Outpatient Encounter [id number] 10/05 [facility] IS [facility] OFFICE O/P EST MOD 30 MIN [id number] [id number] Diagnos is: ICD-10- CM F33.8 Other recurre nt depress katherin disorde rs Fabiana PRATT HRISTOPHABDELRAHMAN 10/05 [facility] NQHP OL DIG ASSMT&MGMT 11-20 [id number] [id number] Diagnos is: ICD-10- CM Z79.01 detention (curren t) use of anticoa gulants KELI CUNHA 10[facility]09 [facility] Outpatient Encounter [id number] LEE KAY M 10/10 [facility] [place] Outpatient Encounter [id number] 10/24 [facility] MTMS BY PHARM EST 15 MIN [id number] [id number] Diagnos is: ICD-10- CM Z79.01 detention (curren t) use of anticoa gulanJASMYNE Martin 10/25 [facility] MTMS BY PHARM ADDL 15 MIN [id number] [id number] Diagnos is: ICD-10- CM I50.9 Heart failure , unspeci fied CARLOS ZAMORA A 11/10 [facility] MTMS BY PHARM EST 15 MIN [id number] Diagnos is: ICD-10- CM I50.9 Heart failure , unspeci fied OSCAR ZAMORAICA A 11/17 [facility] OFFICE O/P EST HI 40 MIN [id number] Diagnos is: ICD-10- CM G20.C Lucie onism, unspeci fied BRODIE EUBANKS E 12/11 [facility] NQHP OL DIG ASSMT&MGMT 5-10 [id number] [id number] Diagnos is: ICD-10- CM Z51.81 Encount er for therape utic drug level monitor lara DE LEON MA TTHEW S 01/11 [facility] EXTENDED VISUAL FIELD XM [id number] [id number] Diagnos is: ICD-10- CM H40.10X 2 Unspeci fied open-an gle glaucom a, moderat e stage Layla BRAUN 01/16 [facility] OFFICE O/P EST MOD 30 MIN [id number] [id number] Diagnos is: ICD-10- CM 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, bilater al, moderat e stage RAISA GREENE ART J 01/16 [facility] NRV CNDJ TEST 7-8 STUDIES [id number] [id number] Diagnos is: ICD-10- CM G62.9 Polyneu ropathy , unspeci fied KARLY,CASH CA M 01/17 [facility] IS [facility] OFFICE O/P EST MOD 30 MIN [id number] [id number] Diagnos is: ICD-10- CM F43.12 Post-tr aumatic stress disorde r, chronic HALEY,PET ER B 02/13 [facility] Outpatient Encounter [id number] 04/05 [facility] OFFICE O/P EST HI 40 MIN [id number] [id number] Diagnos is: ICD-10- CM I25.10 Athscl heart disease of [place] coronar y artery w/o ang pctrs Fabiana PRATTISTOPHABDELRAHMAN 04/05 [facility] OFFICE O/P EST MOD 30 MIN [id number] [id number] Diagnos is: ICD-10- CM F43.12 Post-tr aumatic stress disorde r, chronic HALEY,PET ER B 04/13 [facility] OFFICE O/P EST HI 40 MIN [id number] [id number] Diagnos is: ICD-10- CM G51.31 Clonic hemifac ial spasm, right CHA,LA UREN E 04/16 [facility] Outpatient Encounter [id number] DEVONTE DOUGLAS RA 04/25 [facility] Social History Combined list of available smoking, tobacco, and other social history from Department of Defense and [facility] Affairs facilities. Social History Type Response Date Comment Sourc e Tobacco smoking status NHIS VA-TOBACCO USE FORMER CIGARETTES 10/05/2024 [facility] History of tobacco use VA-TOBACCO NEVER USED OTHER TYPE 10/05/2024 [facility] History of tobacco use VA-TOBACCO FORMER USER 10/11/2023 [facility] History of tobacco use VA-TOBACCO FORMER USER 08/17/2022 [facility] History of tobacco use VA-TOBACCO FORMER USER 10/27/2021 [facility] History of tobacco use VA-TOBACCO FORMER USER 09/19/2020 [facility] History of tobacco use VA-TOBACCO FORMER USER 12/20/2018 [facility] History of tobacco use FORMER TOBACCO US ER 7Y OR GREATER 12/07/2017 [facility] History of tobacco use FORMER TOBACCO US ER 7Y OR GREATER 04/21/2017 [facility] History of tobacco use FORMER TOBACCO US ER 7Y OR GREATER 04/28/2016 [facility] History of tobacco use FORMER TOBACCO US ER 7Y OR GREATER 01/22/2015 [facility] History of tobacco use FORMER TOBACCO US ER 7Y OR GREATER 01/25/2014 [facility] History of tobacco use FORMER TOBACCO US ER 7Y OR GREATER 12/30/2011 [facility] History of tobacco use FORMER TOBACCO US E >1Y <7Y 01/21/2011 [facility] History of tobacco use FORMER TOBACCO US E >1Y <7Y 11/27/2009 [facility] History of tobacco use FORMER TOBACCO US E >1Y <7Y 12/27/2008 [facility] History of tobacco use FORMER TOBACCO US E >1Y <7Y 01/03/2008 [facility] History of tobacco use FORMER TOBACCO US E >1Y <7Y 01/11/2007 [facility] Plan of Care List of future care activities from [facility] facilities. Additional future care activities may be listed in the Assessment and Plan section. Date/Time Care Activity Care Activity Detail Facili ty 05/16/2025 AMBULATORY - NONE AMBULATORY - NONE [facility] Advance Directives List of completed, amended, or rescinded Advance Directives on record at [facility] facilities. An actual copy of the Directive is not included. Date Advance Directive Provider Source 12/04/2009 CLINICAL WARNING [facility]
--- OUTSIDE RECORDS SUMMARY | 2025-04-25 05:49 | XMS_ITS | Clinical Summary ---
Author Organization [employer] [facility] [employer] [facility] Address [address] [place] [address] Care Team Providers Care Perl Developer Name Role Phone Montez Danielle Primary Care Provider [phone] Unknown, Doctor Unavailable Unavailable Allergies Active Allergy Reactions Criticality Noted Date Comments Fish Containing Products Rash 06/25/2014 Lisinopril *Unknown - Follow up needed 05/08/2016 Metoprolol *Unknown - Follow up needed 05/08/2016 Unlisted Allergen (Include Detail In Comments) *Unknown - Follow up needed 05/08/2016 Lobster Penicillins Rash 06/25/2014 Scallops *Unknown - Follow up needed 05/08/2016 Simvastatin *Unknown - Follow up needed 05/08/2016 Medications oxyCODONE-acet aminophen, 5-325 mg, (PERCOCET) per tablet Take 1-2 tablets by mouth every 4 hours if needed for Pain. Max acetaminophen dose: 4000mg in 24 hrs. 30 tablet 0 4 Active albuterol HFA 90 mcg/actuation inhaler Inhale [...] mouth once daily. Take one-half tablet. Active budesonide-for moterol (SYMBICORT) 160-4.5 mcg/actuation (160-4.5 mcg each actuation) inhaler Inhale 2 Puffs by mouth every 12 hours. Active buPROPion (WELLBUTRIN SR) 150 mg Sustained-Rele ase tablet Take 150 mg by mouth 2 times daily. Active Calcium Carbonate 260 mg (650 mg) chew Take 1 tablet by mouth once daily. Active cholecalcifero l (VITAMIN D3) 1,000 unit tablet Take 1,000 [...] eye 2 times daily. 2 mL 05/11/2016 4:03 PM CDT 6 Active ofloxacin 0.3 % ophthalmic (OCUFLOX) 0.3 % ophthalmic solution Place 1 Drop into left eye 4 times daily. 5 mL 05/11/2016 4:03 PM CDT 6 Active prednisoLONE acetate 1% ophthalmic (ECONOPRED PLUS, PRED FORTE, OMNIPRED) suspension Place 1 Drop into left eye 4 times daily. SHAKE WELL 10 mL 05/11/2016 4:03 PM CDT 6 Active Social History Tobacco Use Types Packs/Day Years Used Date Smoking Tobacco: Former Smokeless Tobacco: Former Quit: 07/26/2004 Alcohol Use Standard Drinks/Week Comments Not Asked 0 (1 standard drink = 0.6 oz pur e alcohol) Sex and Gender Information Value Date Recorded Sex Assigned at Not on file Legal Sex Male 5:23 AM DIGITAL INTERN Gender Identity Not on file Sexual Orientation Not on file Obstetrics History Last Filed Vital Signs Vital Sign Reading Time Taken Comments Blood Pressure 105/61 03/05/2020 9:00 PM CDT Pulse 61 03/05/2020 9:00 PM CDT Temperature 36.9 C (98.4 F) 03/05/2020 7:48 PM CDT Respiratory Rate 18 03/05/2020 7:40 PM CDT Oxygen Saturation 90% 03/05/2020 9:00 PM CDT Inhaled Oxygen Concentration - - Weight 80.3 kg (177 lb) 03/05/2020 7:40 PM CDT Height 170.2 cm (5' 7) 03/05/2020 7:40 PM CDT Body Mass Index 27.72 03/05/2020 7:40 PM CDT Plan of Treatment Health Maintenance Due Date Last Done Comments Tetanus booster 1956 Depression screening for age 12+ 1957 BMI (ht and wt on same day) for age 18+ 1963 Hepatitis C screening for ag e 18-79 1963 Pneumococcal series for age 50+ (1 of 1 - PCV) 1995 Zoster (shingles) series for age 50+ (1 of 2) 1995 RSV vaccine for adults or (1 - 1-dose 75+ series) 2020 COVID-19 vaccine series (2023- season) 2024 06/21/2023, 08/17/2022 Influenza Vaccine (#1) 2025 Hepatitis B series for 19+ Aged Out N o longer eligible based on patient's age to complete this topic Insurance [facility] [place] [address] [facility] MEDICARE PART A HB ONLY [place] [address] [facility] Advance Directives * Full Code (Latest Code Status on File) Date Activated Date Inactivated Comments 05/11/2016 6:04 AM 05/11/2016 3:32 PM Question Answer Comments Code Status Discussion: Not Discussed Care Teams Perl Developer Relationship Specialty Start Date End Date Montez Danielle [address] [place] [address] PCP - General Internal Medicine 06/25/14 Unknown, Doctor [address] [place] [address] Internal Medicine 06/25/14
--- OUTSIDE RECORDS SUMMARY | 2025-04-25 05:52 | XMS_ITS | Clinical Summary ---
Author Organization [facility] Address [address] [place] [address] Care Team Providers Care Operating Room Registered Nurse Name Role Phone Unavailable Primary Care Provider Unavailabl e Source Comments Patient records contain information from all sites at [facility]. For routine questions regarding patient records, call [phone] during business hours, M-F 8:00 AM - 5:00 PM Central Time. Record requests for emergency care only can be directed to [phone] at any time.[facility] Allergies Active Allergy Reactions Criticality Noted Date Comments Fish Containing Products Rash 12/04/2009 Lisinopril Rash 04/08/2008 Lobster Nausea And Vomiting 07/12/2007 Metoprolol Shortness of breath 04/08/2008 Penicillins Rash 07/09/2023 Scallops Rash,Nausea And Vomiting 07/12/2007 Simvastatin Itching 04/06/2006 Medications tiotropium (SPIRIVA RESPIMAT) 2.5 mcg/actuation inhaler INHALE TWO PUFFS BY INHALATION EVERY DAY FOR COPD 3 Active sertraline (ZOLOFT) 100 mg tablet Take 1.5 tablets by mouth daily. 3 Active rivaroxaban (XARELTO) 20 mg tablet 20 mg. 3 Active polyvinyl alcohol (NU-TEARS) 1.4 % ophthalmic solution Administer into affected eye(s) 4 (four) times a day as needed. Active latanoprost (XALATAN) 0.005 % ophthalmic solution Administer 1 drop into both eyes at bedtime. Active ipratropium HFA (ATROVENT HFA) 17 mcg/actuation inhaler Inhale 2 puffs every 6 (six) hours as needed. Active hydroCHLOROthia zide (HYDRODIURIL) 12.5 mg tablet Take 1 tablet by mouth daily. 3 Active gabapentin (NEURONTIN) 300 mg capsule 600 mg. 3 Active cholecalciferol , vitamin D3, 25 mcg (1,000 Unit) tablet Take 1 tablet by mouth daily. 3 Active calcium carbonate 650 mg (260 mg calcium) tablet,chewable Chew 1 tablet daily. Active buPROPion (WELLBUTRIN SR) 150 mg 12 hr tablet Take 150 mg by mouth. Active budesonide-form oteroL (SYMBICORT) 160-4.5 mcg/actuation inhaler Inhale 2 puffs every 12 (twelve) hours. Active brimonidine (ALPHAGAN) 0.2 % ophthalmic solution Administer 1 drop into both eyes 2 (two) times a day. 3 Active atorvastatin (LIPITOR) 40 mg tablet Take 1 tablet by mouth daily. 3 Active albuterol 90 mcg/actuation inhaler INHALE 2 PUFFS BY INHALATION EVERY 4 HOURS NEEDED FOR SHORTNESS OF BREATH 3 Active cyanocobalamin (VITAMIN B12) 1,000 mcg tablet Take 1 tablet by mouth daily. 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 No ischemia demonstrated. Immunizations Immunization Administration Dates Next Due H1N1 All Forms [...] at Not on file Legal Sex Male 5:28 AM TANK COOPER Gender Identity Not on file Sexual Orientation Not on file Last Filed Vital Signs Vital Sign Reading Time Taken Comments Blood Pressure 153/98 08/02/2023 12:26 PM TANK COOPER Pulse 81 08/02/2023 12:28 PM TANK COOPER Temperature 36.6 C (97.9 F) 08/02/2023 12:26 PM TANK COOPER Respiratory Rate 17 08/02/2023 12:28 PM TANK COOPER Oxygen Saturation 97% 08/02/2023 12:28 PM TANK COOPER Inhaled Oxygen Concentration - - Weight 76 kg (167 lb 8.8 oz) 08/02/2023 7:56 AM TANK COOPER Height 167 cm (5' 5.75) 08/02/2023 7:56 AM TANK COOPER Body Mass Index 27.25 08/02/2023 7:56 AM TANK COOPER Plan of Treatment Health Maintenance Due Date Last Done Comments Hepatitis C Screening 1945 Pneumococcal vaccine (50+ years) (2 of 2 - PPSV23, PCV20, or PCV21) 07/12/2015 05/17/2015, 09/21/2011, 05/30/2003 Office Visit for Blood Pressure Check / Re-check 10/19/2023 07/19/2023 Creatinine Level (Kidney Function Test) 07/19/2024 07/19/2023, 03/05/2020, 03/05/2020 Potassium Level 07/19/2024 07/19/2023, 070 02/2020, 03/05/2020 Sodium Level 07/19/2024 07/19/2023, 07/0 02/2020, 03/05/2020 Depression Screening (Annual PHQ-2) 08/30/2024 Fall Risk Screen (Annual) 08/30/2024 Influenza Vaccine (#1) 2025 , 06/21/2023, 06/30/2022, Additional history exists DTaP,Tdap,and Td Vaccines (3 - Td or Tdap) 08/17/2032 08/17/2022, 11/10/2012, 12/06/2002 Zoster Vaccines Completed 12/20/2018, 10/01, 03/24/2012 RSV vaccine - (32-36 weeks) or 60+ years Completed 10/05/2024 COVID-19 Vaccine Completed 04/05/2025, 08/2023, 06/21/2023, Additional history exists IPV Vaccines Aged Out No longer eligi ble based on patient's age to complete this topic Medical Devices Implanted Type Area Predatory Game Hunter Device Identifier Shelf Expiration Date Model / Serial / Lot Cardiac Stent Cardiac Stent Chest Description:x3 Lens Env [id number] +21.0d - [id number] - [id number] Implanted:Qty : 1 on 08/02/2023 by Cipriano Whittaker M.D. at [facility] Ocular Lens Right: Eye ffk environment. 04/29/2026 [id number] / [id number] / Explanted Type Area Predatory Game Hunter Device Identifier Shelf Expiration Date Model / Serial / Lot Ocular Lens Explanted:Qty: 1 on 08/02/2023 by Ming Fernandez M.D. at [facility] Ocular Lens Eye Procedures Procedure Name Priority Date/Time Associated Diagnosis Comments BASIC METABOLIC PANEL, S/P Routine 07/19/2023 9:58 AM TANK COOPER Preanesthetic Medical Exam Atherosclerotic Heart Disease Of [place] Coronary Artery Without Angina Pectoris Hyperlipidemia Hypertension Essential Primary from Last 3 Months or Most Recently Relevant to Health Maintenance Results * (ABNORMAL) Basic Metabolic Panel (07/19/2023 9:58 AM TANK COOPER) Potassium, S 4.0 3.6 - 5.2 mmol/L 07/19/2023 10:53 AM TANK COOPER DTL Sodium, S 139 135 - 145 mmol/L 07/19/2023 10:53 AM TANK COOPER DTL Chloride, S 98 98 - 107 mmol/L 07/19/2023 10:53 AM TANK COOPER DTL Bicarbonate, S 31(H) 22 - 29 mmol/L 07/19/2023 10:53 AM TANK COOPER DTL Anion Gap 10 7 - 15 07/19/2023 10:53 AM TANK COOPER DTL BUN (Blood Urea Nitrogen), S 14 8 - 24 mg/dL 07/19/2023 10:53 AM TANK COOPER DTL Creatinine 1.34 0.74 - 1.35 mg/dL 07/19/2023 10:53 AM TANK COOPER DTL Estimated GFR (eGFR) 55(L) >=60 mL/min/BSA 07/19/2023 10:53 AM TANK COOPER DTL Comment: Estimated GFR calculated using the 2020 CKD_EPI creatinine equation. Calcium, Total, S 9.3 8.8 - 10.2 mg/dL 07/19/2023 10:53 AM TANK COOPER DTL Glucose, S 101 70 - 140 mg/dL 07/19/2023 10:53 AM TANK COOPER DTL Blood (Blood, Venous) 07/19/2023 9:58 AM TANK COOPER 07/19/2023 10:34 AM TANK COOPER us Verona Parra APRN, C.N.P., M.S.N. LAB BLOOD ADD- ON Final Result [facility] [address] [place] [address], [facility] DTL [facility] [address] [place] [address] from Last 3 Months or Most Recently Relevant to Health Maintenance Insurance [id number] [place] [id number] [facility]
[2025-04-25 06:03] VITALS: BP 137/76; PULSE 64; RESP 16; TEMP 36.2; O2SAT 96; BMI 25.6
--- NOTE | 2025-04-25 06:17 | CRLHL7_ITS ---
For Patients: As a result of the Century Cures Act, medical imaging exams and procedure reports are released immediately into your electronic medical record. You may view this report before your referring provider. If you have questions, please contact your health care provider. INDICATION: Spontaneous hemorrhage right TM COMPARISON: None TECHNIQUE: CT examination of the head was performed as axial sections without intravenous contrast. Images were obtained from the vertex of the skull through the skull base. Please note that all CT scans at this facility use dose modulation, iterative reconstruction, and/or weight-based dosing when appropriate to reduce radiation dose to as low as reasonably achievable. FINDINGS: The brain shows no sign of mass lesion, mass effect, hemorrhage, or edema. Bilateral symmetric prominence of the extra-axial spaces in the frontal and temporal area bilaterally. This is probably due to bifrontal and bitemporal atrophy rather than chronic subdural hygromas. In either event, it is similar taper 2022 There are involutional changes. There is mild cortical atrophy and there is mild white matter disease. There is no hydrocephalus. The visualized portions of the orbits are normal in appearance. The osseous structures are normal in appearance with no sign of abnormality in the skull base or calvarium. Fluid and/or thickening in the right external auditory canal and portions of the floor of the middle ear cavity. It is difficult to assess the integrity of the tympanic membrane on a nondedicated examination. Consider a temporal bone CT for further evaluation. IMPRESSION: 1. Involutional changes. No acute intracranial finding. 2. 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 Similar to the prior exam. 3. Fluid and are thickening of the right external auditory canal and portions of the floor of the middle ear cavity. This difficult to assess the integrity of the tympanic membrane on this nondedicated examination. Consider a temporal bone CT for further evaluation. Please note that all CT scans at this facility use dose modulation, iterative reconstruction, and/or weight-based dosing when appropriate to reduce radiation dose to as low as reasonably achievable. Dictated by Phillip Bustillos MD @ 04/25/2025 6:43:42 AM (Electronically Signed)
--- NOTE | 2025-04-25 06:21 | ED.GENADULT ---
HPI - General Adult General Chief complaint: Ear/Nose/Throat Problem Stated complaint: right ear bleed and numbness Time Seen by Provider: 04/25/25 06:08 Source: patient Mode of arrival: ambulatory Limitations: no limitations History of Present Illness HPI narrative: 79-year-old male presents to the emergency department for evaluation of bleeding from the right ear. He woke up about 90 minutes prior to arrival with a sensation of wetness on his face and pillow on the right side. It was accompanied by a sensation of numbness behind the right ear and along the right jain. No trauma or injury. He does take Xarelto as a blood thinner for history of DVT. He is not having a headache or any other neurological changes besides the facial numbness. No difficulty speaking, no difficulty swallowing. No vision changes. No history of similar symptoms. No ear trauma, recent Q-tip usage or other similar prior symptoms. No gait difficulty. He drove himself here. He did call the triage line at the [facility] and they advised him to call 911. He jokingly tells us that his neighbors are really knows the and he would not want them interfering, therefore he drove himself. He seems like quite a character and we were all quite impressed by him. No prior ear surgery. Otherwise feeling well with no recent medication changes. Past medical history notable for history of DVT, COPD and depression. Most pertinent medication is the Xarelto, remainder of his medications are reviewed from the list he provides for me. He has multiple allergies including shellfish metoprolol simvastatin topiramate zolpidem penicillin and contrast dye. Current nonsmoker, of a stroke earlier this year. ROS is notable for the bleeding from the right ear and facial numbness as described above, otherwise denies times 12 systems. Related Data Home Medications ?Medication ?Instructions ?Recorded ?Confirmed brimonidine 0.2 % eye drops 1 drp ophthalmic (eye) BID 12/15/22 02/26/24 calcium carbonate 650 mg PO DAILY 12/15/22 02/26/24 carboxymethylcellulose sodium 0.25 1 drp ophthalmic (eye) Q1H PRN 12/15/22 02/26/24 % eye drops in a dropperette cholecalciferol (vitamin D3) 25 25 mcg PO DAILY 12/15/22 02/26/24 mcg (1,000 unit) capsule cyanocobalamin (vitamin B-12) 500 mcg PO DAILY 12/15/22 02/26/24 1,000 mcg capsule fluticasone 250 mcg-salmeterol 50 1 inh inhalation BID 12/15/22 02/26/24 mcg/dose blistr powdr for inhalation (Advair Diskus) fluticasone propionate 50 1 spray intranasal DAILY PRN 12/15/22 02/26/24 mcg/actuation nasal spray,suspension (Allergy Relief (fluticasone)) ipratropium bromide 17 2 inh inhalation Q6H 12/15/22 12/15/22 mcg/actuation HFA aerosol inhaler albuterol 90 mcg/actuation aerosol mcg inhalation 02/26/24 inhaler guaifenesin 200 mg tablet 200 mg PO TID 02/26/24 02/26/24 (Expectorant) sertraline 100 mg tablet 100 mg PO DAILY 02/26/24 02/26/24 tiotropium bromide 2.5 2 inh inhalation DAILY 02/26/24 02/26/24 mcg/actuation mist for inhalation (Spiriva Respimat) Previous Rx's ?Medication ?Instructions ?Recorded cephalexin 500 mg capsule 500 mg PO QID #30 caps 02/03/23 cephalexin 500 mg capsule 500 mg PO TID 7 days #21 caps 02/26/24 doxycycline monohydrate 100 mg 100 mg PO BID #10 caps 02/26/24 capsule furosemide 40 mg tablet (Lasix) 40 mg PO DAILY #7 tabs 02/26/24 cephalexin 500 mg capsule 500 mg PO Q8H #20 caps 04/25/25 Allergies Allergy/AdvReac Type Severity Reaction Status Date / Time Penicillins Allergy Severe Rash Verified 12/15/22 08:01 Iodinated Contrast Media Allergy Intermediate Rash Verified 02/26/24 14:57 lisinopril Allergy Unknown Verified 02/26/24 10:18 lobster Allergy Unknown Verified 02/26/24 10:18 metoprolol Allergy Unknown Verified 02/26/24 10:18 scallops Allergy Unknown Verified 02/26/24 10:18 shellfish derived Allergy Unknown Verified 02/26/24 08:42 simvastatin Allergy Unknown Verified 02/26/24 10:18 topiramate Allergy Unknown Verified 02/26/24 10:18 zolpidem Allergy Unknown Verified 02/26/24 10:18 [facility] Medical History Orthostatic hypotension ?I95.1 - Orthostatic hypotension (ICD-10) Chronic anticoagulation ?Z79.01 - 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) use of anticoagulants (ICD-10) BPH (benign prostatic hyperplasia) ?N40.0 - Benign prostatic hyperplasia without lower urinary tract symptoms (ICD-10) Insomnia ?G47.00 - Insomnia, unspecified (ICD-10) Depression ?F32.A - Depression, unspecified (ICD-10) Recurrent deep vein thrombosis (DVT) ?I82.409 - Acute embolism and thrombosis of unspecified deep veins of unspecified lower extremity (ICD-10) Hepatomegaly ?R16.0 - Hepatomegaly, not elsewhere classified (ICD-10) COPD (chronic obstructive pulmonary disease) ?J44.9 - Chronic obstructive pulmonary disease, unspecified (ICD-10) Coronary artery disease ?I25.10 - Atherosclerotic heart disease of [place] coronary artery without angina pectoris (ICD-10) Surgical History History of blepharoplasty ?Z98.890 - Other specified postprocedural states (ICD-10) Stented coronary artery ?Z95.5 - Presence of coronary angioplasty implant and graft (ICD-10) Social History Narrative: Rogerio lives near [facility] with Jocy and daughter Karen. Karen would be medical decision maker if needed. Rogerio requests DNR/DNI status. 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 He quit smoking in 2003 after his DE. Drinks 2-3 vodka drinks 3-4 nights/week, no history of withdrawal. Highest level of school completed/degree received: Associate degree: occupational, technical, vocational program Smoking Status: Former smoker Do you use any of these nicotine containing products: None Second hand tobacco smoke exposure: No How often do you have a drink containing alcohol: 2-3 times a week Alcohol type: hard liquor How many standard drinks containing alcohol do you have on a typical day: 3 or 4 How often do you have six or more drinks on one occasion: Never AUDIT-C Alcohol total score: 4 Non-prescribed substance use: denies use Caffeine: Yes service: Yes Exam Const: Vital Signs, click to edit/add: Vital Signs - 24 hr 04/25/25 06:03 Temperature 97.2 F L Pulse Rate [Left P ulse Oximeter] 64 Respiratory Rate 16 Blood Pressure [Ri ght Upper Arm] 137/76 Pulse Oximetry 96 Oxygen Delivery Me thod Room Air Documenting provider has reviewed patient's vital signs: yes Common normals: no apparent distress and alert General appearance: cooperative, comfortable and well kempt HENMT: Common normals: normocephalic, nasal mucous membranes and turbinates normal, moist oral mucous membranes and oropharynx normal Head and scalp: normocephalic Nose: nasal mucous membranes and turbinates normal Other: Dentures present. Left TM appears normal. Right TM is obscured by dark red blood. I can see the top half of the TM without difficulty and it seems intact but the bottom half even despite my attempts to try to clear this with Q-tips, there is persistent oozing. It does not seem arterial but I can not properly identify the source. I cannot clearly tell of the TM is ruptured or if the bleeding is from a more internal source. I do not see any obvious abrasion or injury to the canal or external ear. Eye: Common normals: EOMs intact bilaterally and conjunctivae normal General eye: normal appearance of both eyes Conjunctiva: conjunctiva(e) normal Neck & C-Spine: Common normals: full ROM and no lymphadenopathy Resp: Common normals: normal respiratory effort, no use of accessory muscles and clear to auscultation bilaterally Effort & inspection: able to speak in complete sentences Auscultation: clear to auscultation bilaterally Cardio: Common normals: regular rate, regular rhythm, S1 normal heart sound, S2 normal heart sound and no murmurs Rate: regular rate Rhythm: regular rhythm Heart sounds: S1 normal and S2 normal Extremity: Common normals: normal capillary refill Neuro: Common normals: CN's II-XII intact bilaterally and moves all extremities Sensorium/orientation: alert Speech: speech normal Gait (neuro): normal gait Motor exam: strength 5/5 throughout Psych: Common normals: speech normal Appearance: well kempt Attitude: engaged Activity/motor behavior: appropriate eye contact Speech: normal speech Insight: insight good Judgement: judgment good Skin: Common normals: no rashes or lesions noted General skin exam: no rashes or lesions noted Course Course ED Course: 79-year-old male anticoagulated on Xarelto with persistent bleeding from the right ear. I think this is probably from a ruptured TM but I gently can not tell if this isn't from a more internal source like the mid brain. He also has numbness of the jain and posterior auricular area that I do not have an etiology for. Because of this, I recommended a head CT and patient was agreeable to this. If there are no signs of intracranial hemorrhage, anticipate period of observation and if cannot get the bleeding to ceased, consider ENT consult. Reevaluation(s) Reevaluation #1: Counseled patient on findings of the CT which are reassuring that there is no signs of bleeding inside the brain. It looks like the bleeding is coming from the tympanic membrane. On re-evaluation, thankfully the bleeding seems to have slowed considerably. I discussed options with patient. It certainly like to observe it for a period longer make sure the bleeding does not restart but I would like to apply some tranexamic acid to see if that give this a better chance of stopping the bleeding. He was agreeable to this. 2 mL was inserted in the ear canal and let set for 5 minutes and reexamined and it looks like the bleeding has completely ceased. I put in another 2 mL and let it set another 5 minutes and reexamined. Bleeding seems to have ceased. Patient is feeling well. I discussed with him that typically this will start from an infection. With the blood and clot holding, I am hesitant to recommend ear drops both because of difficulty with technique and risk of re-injury but also I am worried about penetration with the blood. Because of this I would recommend that we use oral antibiotic. Rationale is reviewed with patient. He has a penicillin allergy but it looks like he has tolerated Keflex in the past. Will treat with Keflex 500 mg p.o. x1 in the ED and then continue on this t.i.d. for the next 7 days. [facility] and he would like it sent through there so I will. I have stressed with him that I do not the etiology of why this happened. The clinics are not yet open for me to discuss the case with our specialty provider but I could call them emergently if needed but I do not think that is necessary. He will need in office follow-up to ensure that this ear drum is healing properly. Patient says that he would [facility]. I have given him the necessary information to schedule this in the discharge paperwork but also have let him know the contact information for Dr. Gutiérrez. If bleeding restarts, laid down and apply pressure for about 20 minutes, if it does not improve, please return to the emergency department within an hour. Any neurological changes or other abnormalities would warrant re-evaluation as well. He verbalizes understanding and agreement. Vital Signs Vital signs: Initial Vital Signs Temperature 97.2 F L 04/25/25 06:03 Temperature Source Temporal Artery Scan 04/25/25 06:03 Pulse Rate 64 04/25/25 06:03 Pulse Rhythm Regular 04/25/25 06:03 Respiratory Rate 16 04/25/25 06:03 Blood Pressure 137/76 04/25/25 06:03 Blood Pressure Mean 96 04/25/25 06:03 Blood Pressure Position Sitting 04/25/25 06:03 Pulse Oximetry 96 04/25/25 06:03 Oxygen Delivery Method Room Air 04/25/25 06:03 Vital Signs Temperature 97.2 F L 04/25/25 06:03 Pulse Rate 64 04/25/25 06:03 Respiratory Rate 16 04/25/25 06:03 Blood Pressure 137/76 04/25/25 06:03 Pulse Oximetry 96 04/25/25 06:03 Oxygen Delivery Method Room Air 04/25/25 06:03 Temperature 97.2 F L 04/25/25 06:03 Pulse Rate 64 04/25/25 06:03 Respiratory Rate 16 04/25/25 06:03 Blood Pressure 137/76 04/25/25 06:03 Pulse Oximetry 96 04/25/25 06:03 Oxygen Delivery Method Room Air 04/25/25 06:03 Medications Administered Medications: Generic Name Dose Route Start Last Admin Trade Name Freq PRN Reason Stop Dose Admin Cephalexin HCl 500 mg 04/25/25 07:26 04/25/25 07:32 Cephalexin 500 Mg Capsule PO 04/25/25 07:27 500 mg ONCE ONE Administration Discontinued Medications Generic Name Dose Route Start Last Admin Trade Name Freq PRN Reason Stop Dose Admin Tranexamic Acid 1,000 mg 04/25/25 07:06 04/25/25 07:10 Tranexamic Acid 100 Mg/Ml Inj TOPICAL 04/25/25 07:07 1,000 mg ONCE ONE Administration Medical Decision Making Imaging Data CT scan - head: Attestation: I have reviewed the pertinent imaging results. My impression: No obvious signs of bleeding in the middle brain which was the indication of concern. Certainly is some bleeding in the ear canal in fluid in the middle ear. This would not be diagnostic for the TM. Radiologist's impression: IMPRESSION: 1. Involutional changes. No acute intracranial finding. 2. 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 Similar to the prior exam. 3. Fluid and are thickening of the right external auditory canal and portions of the floor of the middle ear cavity. This difficult to assess the integrity of the tympanic membrane on this nondedicated examination. Consider a temporal bone CT for further evaluation. Please note that all CT scans at this facility use dose modulation, iterative reconstruction, and/or weight-based dosing when appropriate to reduce radiation dose to as low as reasonably achievable. Dictated by Phillip Bustillos MD @ 04/25/2025 6:43:42 AM Discharge Plan Discharge Clinical Impression: Infection of right middle ear with rupture of eardrum Patient Disposition: Home, Self-Care Instructions: Ruptured Eardrum (ED) Additional Instructions: As we discussed, the CT scan did not show any signs that the bleeding was coming from the brain or another internal source. It looks like the eardrum ruptured. This typically happens from an infection. But because of your blood thinners, the bleeding did not stop as easily as it would for most people. Thankfully, it slowed considerably and then the blood clotting medicine that I applied seems to have gotten things stopped. He will continue taking your blood thinners as prescribed. I do not want to use ear drops to help treat the infection because I am worried about that disrupting a clot and not being able to penetrate as well because of the recent bleeding. Because of this, I want to treat you with antibiotics by mouth. You were given your 1st dose here in the emergency room. It is important that you keep taking this 3 times daily, but you have assured me that the medication will come very quickly from the [facility] pharmacy. I will trust your judgment. The ear drum will typically heal itself within a few days but it can take several weeks sometimes. I do not know why your eardrum ruptured, it is unusual at your age. Because of this you do need to follow-up with an payment specialist. You have let me know that you would like to schedule 1 through the [facility]. I will trust you to do so. If not, a I do highly recommend Dr. Gutiérrez. His number is [phone] Ideally, your appointment should be in about 1 week. You should return to the emergency department if the bleeding does not stop within an hour or if you have any new neurological changes. Activity Level: No Restrictions Discharge Diet: Regular Prescriptions: New cephalexin 500 mg capsule 500 mg PO Q8H Qty: 20 0RF No Action albuterol 90 mcg/actuation aerosol inhalation guaifenesin [Expectorant] 200 mg tablet 200 mg PO TID sertraline 100 mg tablet 100 mg PO DAILY Spiriva Respimat 2.5 mcg/actuation mist 2 inh inhalation DAILY cephalexin 500 mg capsule 500 mg PO TID 7 Days Qty: 21 0RF doxycycline monohydrate 100 mg capsule 100 mg PO BID Qty: 10 0RF furosemide [Lasix] 40 mg tablet 40 mg PO DAILY Qty: 7 0RF calcium carbonate 500 mg calcium (1,250 mg) tablet 650 mg PO DAILY cholecalciferol (vitamin D3) 25 mcg (1,000 unit) capsule 25 mcg PO DAILY cyanocobalamin (vitamin B-12) 1,000 mcg capsule 500 mcg PO DAILY brimonidine 0.2 % drops 1 drp ophthalmic (eye) BID carboxymethylcellulose sodium 0.25 % dropperette 1 drp ophthalmic (eye) Q1H PRN fluticasone propionate [Allergy Relief (fluticasone)] 50 mcg/actuation spray,suspension 1 spray intranasal DAILY PRN Rx Instructions: administer into each nostril ipratropium bromide 17 mcg/actuation HFA aerosol inhaler 2 inh inhalation Q6H fluticasone propion-salmeterol [Advair Diskus] 250-50 mcg/dose blister with device 1 inh inhalation BID cephalexin 500 mg capsule 500 mg PO QID Qty: 30 0RF Follow Up/Referrals: Provider,Not a Local [Primary Care Provider, Family Practice] Stand Alone Forms: MyHealth Info Instructions
[2025-04-25] MEDS: TRANEXAMIC ACID 100 MG/ML INJ 1000 MG TOPICAL (07:10)
== END 2025-04-25 07:39 | disposition home or self-care (01) ==
PROVIDERS: Emergency Provider Family Medicine
DX: H66.011 Acute suppurative otitis media with spontaneous rupture of ear drum, right ear (principal)
CPT/HCPCS: 70450; 99283; 99284; A9270

== ENCOUNTER 2025-06-26 18:13 | Emergency (ER) | payer OTHER, SELFPAY ==
--- OUTSIDE RECORDS SUMMARY | 2025-06-18 09:00 | XMS_ITS | Encounter Summary ---
Author Organization [facility] Address [address] [place] [address] Care Team Providers Care Corporate Quality Engineer Name Role Phone Unavailable Primary Care Provider Unavailabl e Reason for Visit * Reason Comments Ear Problem * Appointment Request (Routine) - Closed Specialty Diagnoses / Procedures Referred By Contshahnaz t Referred To Contact Otorhinolaryngology Diagnoses Tympanic Membrane Disorder Right Procedures Consult Toney Paul M.D., F.N.P. [address] [place] [address] Phone: tel: fax: [facility] Region Referral ID Status Reason Start Date Expiration Date Visits Re quested Visits Authorized [id number] Closed 06/07/2025 06/07/2026 1 1 Encounter Details Date Type Department Care Team (Latest Contact Info) Description 06/18/2025 9:00 AM CDT Comprehensive Visit Department of Otorhinolaryngology in [place], [place] [address] [phone] Keesha Go P.A.-C. 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 - 06/18/2025 9:00 AM CDT SUBJECTIVE CHIEF COMPLAINT/REASON FOR VISIT Bleeding right ear REFERRING PROVIDER Toney Paul M.D., F.N.P. HISTORY OF PRESENT ILLNESS Gibran Wick is seen today in consultation from the [facility] for evaluation of his right ear. Past medical history is significant for COPD, cardiac disease, hyperlipidemia, hypertension, peripheral neuropathy, thromboembolism, former cigarette smoker with 45 pack year history, quit in 2003. He follows with the [facility] for his primary cares. On 04/25/2025 patient woke up with active bleeding from the right ear canal. This was not associated with right ear pain, upper respiratory congestion, or any other focal neurological symptoms. He was seen in the [facility] where a CT scan did not show any concerning abnormalities. TXA was applied topically to the ear canal which obtain hemostasis in the emergency room, he was placed on oral cephalexin and referred to ENT. He has had no bleeding since that date. The ear feels a little bit muffled but he is without pain or any other ear symptoms. The following portions of the patient's history were reviewed: allergies, current medications, problem list, family history, medical history, social history and surgical history OBJECTIVE PHYSICAL EXAMINATION GENERAL: Patient is alert, oriented, and in no acute distress. Respirations are quiet and unlabored. Vocal quality is normal. EARS: External ears normal bilaterally. Right ear canal is completely occluded with large organizedblood clot that is hardened and adhered to canal powers and the tympanic membrane itself. I can onlyvisualize approximately 25% of the tympanic membrane, this is normal and there is no purulence in the middle ear. The debris was not easily able to be removed from the canal today, given patient's anticoagulation status and history of bleeding I did not want to reinitiate bleeding or cause damage. ASSESSMENT / PLAN 1. Bloody otorrhea, right, now occluding canal We discussed involved anatomy and findings. Patient is willing to utilize mineral oil q.h.s. and will return to clinic on 06/27/2025. At that time we should be able to more easily and safely remove the debris from the right canal and assess the tympanic membrane and middle ear. He is comfortable with this plan. Keesha Go P.A.-C. documented in this encounter Plan of Treatment Upcoming Encounters Date Type Department Care Team (Late st Contact Info) Description 06/27/2025 9:00 AM CDT Office Visit Department of Otorhinolaryngology in [place], [place] [address] [place] [phone] Keesha Go P.A.-C. [address], [place] [phone] 08/03/2025 8:45 AM DIRECTOR [employer] Office Visit Department of Ophthalmology in [place], [place] [address] [phone] Cipriano Whittaker M.D. [address] [place] [address] documented as of this encounter Visit Diagnoses Diagnosis Bleeding Ear Right- Primary documented in this encounter
--- OUTSIDE RECORDS SUMMARY | 2025-06-26 18:15 | XMS_ITS | Clinical Summary ---
Author Organization [facility] Address [address] [place] [address] Care Team Providers Care Meat Counter Clerk Name Role Phone Unavailable Primary Care Provider Unavailabl e Source Comments Patient records contain information from all sites at [facility]. For routine questions regarding patient records, call [phone] during business hours, M-F 8:00 AM - 5:00 PM Central Time. 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 Gender Identity Not on file Sexual Orientation Not on file Last Filed Vital Signs Vital Sign Reading Time Taken Comments Blood Pressure 153/98 08/02/2023 12:26 PM TAILINGS MAN Pulse 81 08/02/2023 12:28 PM TAILINGS MAN Temperature 36.6 C (97.9 F) 08/02/2023 12:26 PM TAILINGS MAN Respiratory Rate 17 08/02/2023 12:28 PM TAILINGS MAN Oxygen Saturation 97% 08/02/2023 12:28 PM TAILINGS MAN Inhaled Oxygen Concentration - - Weight 76 kg (167 lb 8.8 oz) 08/02/2023 7:56 AM TAILINGS MAN Height 167 cm (5' 5.75) 08/02/2023 7:56 AM TAILINGS MAN Body Mass Index 27.25 08/02/2023 7:56 AM TAILINGS MAN Plan of Treatment Upcoming Encounters Date Type Department Care Team (Late st Contact Info) Description 06/27/2025 9:00 AM CDT Office Visit Department of Otorhinolaryngology in [place], [place] [address] [place] [phone] Keesha Go P.A.-C. [address] [place] [phone] 08/03/2025 8:45 AM TAILINGS MAN Office Visit Department of Ophthalmology in [place], [place] [address] [place] [phone] Cipriano Whittaker M.D. [address] [place] [phone] Health Maintenance Due Date Last Done Comments Hepatitis C Screening 1945 Office Visit for Blood Pressure Check / Re-check 1945 Pneumococcal vaccine (50+ years) (2 of 2 - PPSV23, PCV20, or PCV21) 07/12/2015 05/17/2015, 09/21/2011 Creatinine Level (Kidney Function Test) 07/19/2024 07/19/2023, 03/05/2020, 03/05/2020 Potassium Level 07/19/2024 07/19/2023, 07/0 02/2020, 03/05/2020 Sodium Level 07/19/2024 07/19/2023, 07/0 02/2020, 03/05/2020 Depression Screening (Annual PHQ-2) 08/30/2024 Fall Risk Screen (Annual) 08/30/2024 Influenza Vaccine (#1) 2025 05/30/2024, 2022 COVID-19 Vaccine (2024- season) 2025 04/05/2025, 05/30/2024, 06/21/2023, Additional history exists DTaP,Tdap,and Td Vaccines (3 - Td or Tdap) 08/17/2032 08/17/2022, 11/10/2012, 12/06/2002 Zoster Vaccines Completed 12/20/2018, 10/01, 03/24/2012 RSV vaccine - (32-36 weeks) or 50+ years Completed 10/05/2024 IPV Vaccines Aged Out No longer eligi ble based on patient's age to complete this topic Medical Devices Implanted Type Area Recruiter Specialist Device Identifier Shelf Expiration Date Model / Serial / Lot Cardiac Stent Cardiac Stent Chest Description:x3 Lens Env [id number] +21.0d - [id number] - [id number] Implanted:Qty : 1 on 08/02/2023 by Cipriano Whittaker M.D. at [facility] Ocular Lens Right: [employer]. 04/29/2026 [id number] / [id number] / Explanted Type Area Recruiter Specialist Device Identifier Shelf Expiration Date Model / Serial / Lot Ocular Lens Explanted:Qty: 1 on 08/02/2023 by Ming Fernandez M.D. at [facility] Ocular Lens Eye Procedures Procedure Name Priority Date/Time Associated Diagnosis Comments BASIC METABOLIC PANEL, S/P Routine 07/19/2023 9:58 AM TAILINGS MAN Preanesthetic Medical Exam Atherosclerotic Heart Disease Of [place] Coronary Artery Without Angina Pectoris Hyperlipidemia Hypertension Essential Primary from Last 3 Months or Most Recently Relevant to Health Maintenance Results * (ABNORMAL) Basic Metabolic Panel (07/19/2023 9:58 AM TAILINGS MAN) Potassium, S 4.0 3.6 - 5.2 mmol/L 07/19/2023 10:53 AM TAILINGS MAN DTL Sodium, S 139 135 - 145 mmol/L 07/19/2023 10:53 AM TAILINGS MAN DTL Chloride, S 98 98 - 107 mmol/L 07/19/2023 10:53 AM TAILINGS MAN DTL Bicarbonate, S 31(H) 22 - 29 mmol/L 07/19/2023 10:53 AM TAILINGS MAN DTL Anion Gap 10 7 - 15 07/19/2023 10:53 AM TAILINGS MAN DTL BUN (Blood Urea Nitrogen), S 14 8 - 24 mg/dL 07/19/2023 10:53 AM TAILINGS MAN DTL Creatinine 1.34 0.74 - 1.35 mg/dL 07/19/2023 10:53 AM TAILINGS MAN DTL Estimated GFR (eGFR) 55(L) >=60 mL/min/BSA 07/19/2023 10:53 AM TAILINGS MAN DTL Comment: Estimated GFR calculated using the 2020 CKD_EPI creatinine equation. Calcium, Total, S 9.3 8.8 - 10.2 mg/dL 07/19/2023 10:53 AM TAILINGS MAN DTL Glucose, S 101 70 - 140 mg/dL 07/19/2023 10:53 AM TAILINGS MAN DTL Blood (Blood, Venous) 07/19/2023 9:58 AM TAILINGS MAN 07/19/2023 10:34 AM TAILINGS MAN Verona Parra APRN, C.N.P., M.S.N. LAB BLOOD ADD- ON Final Result [facility] [address] [place] [address], [facility] [address] [place] [address] from Last 3 Months or Most Recently Relevant to Health Maintenance Insurance [id number] [place] [phone] [employer]
--- OUTSIDE RECORDS SUMMARY | 2025-06-26 18:15 | XMS_ITS | Clinical Summary ---
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 Gender Identity Not on file Sexual Orientation [...] or (1 - 1-dose 75+ series) 2020 Influenza Vaccine (#1) 2025 Hepatitis B series for 19+ Aged Out N o longer eligible based on patient's age to complete this topic Insurance [facility] [place] [address] [employer] MEDICARE PART A HB ONLY [facility] [place] [address] [facility] Advance Directives * Full Code (Latest Code Status on File) Date Activated Date Inactivated Comments 05/11/2016 6:04 AM 05/11/2016 3:32 PM Question Answer Comments Code Status Discussion: Not Discussed Care Teams Steel Erector Relationship Specialty Start Date End Date Montez Danielle [address] [place] [phone] PCP - General Internal Medicine 06/25/14 Unknown, Doctor [address] [place] [phone] Internal Medicine 06/25/14
--- OUTSIDE RECORDS SUMMARY | 2025-06-26 18:15 | XMS_ITS | Encounter Summary ---
Author Organization [facility] Address [address] [place] [address] Care Team Providers Care Sample Sewer Name Role Phone Unavailable Primary Care Provider Unavailabl e Reason for Visit * Reason Onset Date Comments Order Request 06/07/2025 URGENT Exter nal [facility] Referral for [facility] Encounter Details Date Type Department Care Team (Latest Contact Info) Description 06/07/2025 Clinical Communication Department of Otorhinolaryngology in [place], [place] [address] [phone] External, Referring Provider Order Request ([facility]GENT External [facility] Ref[facility] for [facility] ) Social History Tobacco Use Types Packs/Day Years Used Date Smoking Tobacco: Former Cigarettes 1 45 0 08/1958 - 08/2003 Smokeless Tobacco: Never Alcohol Use Standard Drinks/Week Comments Yes 2 (1 standard drink = 0.6 oz pur e alcohol) Sex and Gender Information Value Date Recorded Sex Assigned at Not on file 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 [address] [place] [phone] documented as of this encounter Visit Diagnoses Not on filedocumented in this encounter
[2025-06-26 18:19] VITALS: BP 91/56; PULSE 94; RESP 16; TEMP 36.8; O2SAT 91; BMI 24.9
--- NOTE | 2025-06-26 18:48 | ED.GENADULT ---
HPI - General Adult General Chief complaint: Extremity Pain/Injury, Lower Stated complaint: foot infection Time Seen by Provider: 06/26/25 18:33 History of Present Illness HPI narrative: c/o foot pain pt presents to the ED today with concerns of severe pain, redness, and swelling or the right foot. pt. is ambulatory. pt endorses a hx. of cellulitis and DVT. 79-year-old man presenting to emergency department with concern of pain in right 2nd toe and foot. 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 He is not experiencing any chest pain or shortness of breath. On review of record looks like as a history of cellulitis in this leg, ankle area. It just hurts tremendously. Does not recall any trauma. Does not recall history of gout. Does become tearful recounting [place] history and injuries that he sustained along with exposure to Agent [place] and resulting health problems and surgeries, along with of spouse. Noting history of low blood pressure on arrival he does say that is pending further evaluation for this after history of rather significant hypertension. Been having low blood pressures. Related Data Home Medications ?Medication ?Instructions ?Recorded ?Confirmed brimonidine 0.2 % eye drops 1 drp ophthalmic (eye) BID 12/15/22 02/26/24 calcium carbonate 650 mg PO DAILY 12/15/22 02/26/24 carboxymethylcellulose sodium 0.25 1 drp ophthalmic (eye) Q1H PRN 12/15/22 02/26/24 % eye drops in a dropperette cholecalciferol (vitamin D3) 25 25 mcg PO DAILY 12/15/22 02/26/24 mcg (1,000 unit) capsule cyanocobalamin (vitamin B-12) 500 mcg PO DAILY 12/15/22 02/26/24 1,000 mcg capsule fluticasone 250 mcg-salmeterol 50 1 inh inhalation BID 12/15/22 02/26/24 mcg/dose blistr powdr for inhalation (Advair Diskus) fluticasone propionate 50 1 spray intranasal DAILY PRN 12/15/22 02/26/24 mcg/actuation nasal spray,suspension (Allergy Relief (fluticasone)) ipratropium bromide 17 2 inh inhalation Q6H 12/15/22 12/15/22 mcg/actuation HFA aerosol inhaler albuterol 90 mcg/actuation aerosol mcg inhalation 02/26/24 inhaler guaifenesin 200 mg tablet 200 mg PO TID 02/26/24 02/26/24 (Expectorant) sertraline 100 mg tablet 100 mg PO DAILY 02/26/24 02/26/24 tiotropium bromide 2.5 2 inh inhalation DAILY 02/26/24 02/26/24 mcg/actuation mist for inhalation (Spiriva Respimat) Previous Rx's ?Medication ?Instructions ?Recorded cephalexin 500 mg capsule 500 mg PO QID #30 caps 02/03/23 cephalexin 500 mg capsule 500 mg PO TID 7 days #21 caps 02/26/24 doxycycline monohydrate 100 mg 100 mg PO BID #10 caps 02/26/24 capsule furosemide 40 mg tablet (Lasix) 40 mg PO DAILY #7 tabs 02/26/24 cephalexin 500 mg capsule 500 mg PO Q8H #20 caps 04/25/25 hydrocodone 5 mg-acetaminophen 325 1 - 2 tab PO Q4-6H PRN pain #10 25 mg tablet tabs hydrocodone 5 mg-acetaminophen 325 1 - 2 tab PO Q4-6H PRN pain #10 06/26/25 mg tablet tabs prednisone 20 mg tablet 20 mg PO DAILY #14 tabs 06/26/25 hydrocodone 5 mg-acetaminophen 325 1 - 2 tab PO Q4-6H PRN pain #9 tabs 06/27/25 mg tablet Allergies Allergy/AdvReac Type Severity Reaction Status Date / Time Penicillins Allergy Severe Rash Verified 06/26/25 18:18 Iodinated Contrast Media Allergy Intermediate Rash Verified 06/26/25 18:18 lisinopril Allergy Unknown Verified 06/26/25 18:18 lobster Allergy Unknown Verified 06/26/25 18:18 metoprolol Allergy Unknown Verified 06/26/25 18:18 scallops Allergy Unknown Verified 06/26/25 18:18 shellfish derived Allergy Unknown Verified 06/26/25 18:18 simvastatin Allergy Unknown Verified 06/26/25 18:18 topiramate Allergy Unknown Verified 06/26/25 18:18 zolpidem Allergy Unknown Verified 06/26/25 18:18 Review of Systems Status of ROS: Reports: 6 or more systems reviewed and unremarkable except as noted in History and below [facility] Medical History Orthostatic hypotension ?I95.1 - Orthostatic hypotension (ICD-10) Chronic 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 (ICD-10) BPH (benign prostatic hyperplasia) ?N40.0 - Benign prostatic hyperplasia without lower urinary tract symptoms (ICD-10) Insomnia ?G47.00 - Insomnia, unspecified (ICD-10) Depression ?F32.A - Depression, unspecified (ICD-10) Recurrent deep vein thrombosis (DVT) ?I82.409 - Acute embolism and thrombosis of unspecified deep veins of unspecified lower extremity (ICD-10) Hepatomegaly ?R16.0 - Hepatomegaly, not elsewhere classified (ICD-10) COPD (chronic obstructive pulmonary disease) ?J44.9 - Chronic obstructive pulmonary disease, unspecified (ICD-10) Coronary artery disease ?I25.10 - Atherosclerotic heart disease of [place] coronary artery without angina pectoris (ICD-10) Surgical History History of blepharoplasty ?Z98.890 - Other specified postprocedural states (ICD-10) Stented coronary artery ?Z95.5 - Presence of coronary angioplasty implant and graft (ICD-10) Social History Narrative: Rogerio lives near [facility] with Jocy and daughter Karen. Karen would be medical decision maker if needed. Rogerio requests DNR/DNI status. 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 He quit smoking in 2003 after his OK. Drinks 2-3 vodka drinks 3-4 nights/week, no history of withdrawal. Highest level of school completed/degree received: Associate degree: occupational, technical, vocational program Smoking Status: Former smoker Do you use any of these nicotine containing products: None Second hand tobacco smoke exposure: No How often do you have a drink containing alcohol: 2-3 times a week Alcohol type: hard liquor How many standard drinks containing alcohol do you have on a typical day: 3 or 4 How often do you have six or more drinks on one occasion: Never AUDIT-C Alcohol total score: 4 Non-prescribed substance use: denies use Caffeine: Yes service: Yes Exam Narrative: Exam Narrative: Pleasant. NAD. Breathing easily. Extremities noted with prominent hemosiderin deposition about the left ankle. Right foot and ankle show some mild edema about the right ankle relative to the left. No pain to palpation about either calf. Right leg maybe looks a little generally larger than the left. Subtle erythema about the dorsum of the right foot base of 5th metatarsal area. Is generally mildly tender. Most significant though erythema is limited to right 2nd toe. I do not see evidence of trauma. Exquisitely tender to light touch. Mildly swollen. Tender also to manipulation of the toe as well. Calor as well. Const: Vital Signs, click to edit/add: Vital Signs - 24 hr 06/26/25 18:19 Temperature 98.3 F Pulse Rate [Pulse Oximeter] 94 Respiratory Rate 16 Blood Pressure [Ri ght Upper Arm] 91/56 L Pulse Oximetry 91 Oxygen Delivery Me thod Room Air Documenting provider has reviewed patient's vital signs: yes Course Vital Signs Vital signs: Initial Vital Signs Temperature 98.3 F 06/26/25 18:19 Temperature Source Temporal Artery Scan 06/26/25 18:19 Pulse Rate 94 06/26/25 18:19 Respiratory Rate 16 06/26/25 18:19 Blood Pressure 91/56 L 06/26/25 18:19 Blood Pressure Mean 67 L 06/26/25 18:19 Blood Pressure Position Sitting 06/26/25 18:19 Pulse Oximetry 91 06/26/25 18:19 Oxygen Delivery Method Room Air 06/26/25 18:19 Vital Signs Temperature 98.3 F 06/26/25 18:19 Pulse Rate 94 06/26/25 18:19 Respiratory Rate 16 06/26/25 18:19 Blood Pressure 91/56 L 06/26/25 18:19 Pulse Oximetry 91 06/26/25 18:19 Oxygen Delivery Method Room Air 06/26/25 18:19 Temperature 98.3 F 06/26/25 18:19 Pulse Rate 94 06/26/25 18:19 Respiratory Rate 16 06/26/25 18:19 Blood Pressure 91/56 L 06/26/25 18:19 Pulse Oximetry 91 06/26/25 18:19 Oxygen Delivery Method Room Air 06/26/25 18:19 Medications Administered Medications: Discontinued Medications Generic Name Dose Route Start Last Admin Trade Name Freq PRN Reason Stop Dose Admin Colchicine 1.2 mg 06/26/25 21:31 06/26/25 21:54 Colchicine 0.6 Mg Capsule PO 06/26/25 21:32 1.2 mg ONCE ONE Administration Medical Decision Making MDM Narrative Medical decision making narrative: Due to anticoagulation at this medication options for pain are a little more limited. I think less likely does this represent venous thrombus. Seems to be more arthritic or gouty related. Possible trauma. He does make a request for some numbing of some sort to this toe. I agree that systemic pain medications will be more difficult to accomplish pain relief. After discussion of options I returned to inject 1 mL of Sensorcaine in a digital block. Anticipate x-rays looking for evidence of trauma or osteoarthritic change that might lead to more specific diagnosis. I think is less likely cellulitic/infectious more likely inflammatory or traumatic. Will standard labs. Initial blood pressure is noted to be low relative to history. Does have a history of orthostatic hypotension. Essentially full pain relief with digital block as done. He was quite relieved. Independently reviewed by me three-view x-rays of the right 2nd toe though with visualization of great toe through the 3rd, shows osteoarthritic changes I do not see any fracture or osteolytic lesions. Labs show normal white count. Creatinine is 1.5. Normal CRP. Uric acid returns a little elevated. This would appear to be gouty arthritis. Considering renal function and anticoagulation will treat initially at least with colchicine. Dosed from the emergency department. Radiology over-read below Indication: Inflammation and pain Technique: Right great toe, 3 views. Comparison: None. Findings/Impression: There is no acute fracture or malalignment. Minimal polyarticular osteoarthrosis most pronounced at the 1st tarsometatarsal joint. No significant soft tissue swelling. No radiopaque foreign body. Dictated by Vijaya Recio MD @ 06/26/2025 7:40:49 PM See patient discharge plan for further discussion Very pleased you are feeling better. This injection might help you make it through the night. And then hopefully the oral medicine that you got here will settle this down by tomorrow afternoon. As you asked for, your received an injection of bupivacaine in a digital block around your toe. You received 1.2 mg of colchicine in a pill and another 0.6 mg that I would like you to take yet tonight 1 hour after you took the 1st dose. Since you are taking rivaroxaban, you are little limited in the nonsteroidal anti-inflammatories we can recommend. I have written for a course of prednisone <del>you</del> <del>can</del> <del>pick</del> <del>up</del> <del>in</del> <del>[facility]</del> <del>on</del> <del>your</del> <del>way</del> <del>out.</del> <del>If</del> <del>in</del> <del>a</del> <del>day</del> <del>your</del> <del>toe</del> <del>isn't</del> <del>much</del> <del>better,</del> <del>you</del> <del>can</del> <del>start</del> <del>this</del> <del>prednisone.</del> <del>Also</del> <del>in</del> <del>[facility]</del> I have ordered Carbon. This is an opiate containing 5 mg of hydrocodone and 325 mg of acetaminophen in each tablet. It can make you tired and potentially constipated. This is for breakthrough pain. Medications instead as requested were sent to your pharmacy <del>Take</del> <del>the</del> <del>prednisone</del> <del>as</del> <del>40</del> <del>mg</del> <del>(2</del> <del>tabs)</del> <del>daily</del> <del>for</del> <del>4</del> <del>days;</del> <del>then</del> <del>20</del> <del>mg</del> <del>(1</del> <del>tab)</del> <del>daily</del> <del>for</del> <del>5</del> <del>days;</del> <del>then</del> <del>10</del> <del>mg</del> <del>(1/2</del> <del>of</del> <del>a</del> <del>tab)</del> <del>daily</del> <del>for</del> <del>3</del> <del>days.</del> <del>(you</del> <del>will</del> <del>have</del> <del>some</del> <del>prednisone</del> <del>tablets</del> <del>remaining</del> <del>that</del> <del>you</del> <del>could</del> <del>start</del> <del>in</del> <del>case</del> <del>you</del> <del>have</del> <del>a</del> <del>future</del> <del>flare</del> <del>if</del> <del>necessary</del> <del>until</del> <del>you</del> <del>could</del> <del>be</del> <del>re-evaluated)</del> Medical Records Medical records reviewed: Yes I reviewed the patient's medical records Lab Data Lab results reviewed: Yes I reviewed the patient's lab results Labs: Lab Results 06/26/25 Range/Units 19:55 WBC 3.88 L (4.50-11.00) K/uL RBC 3.64 L (4.30-5.90) m/uL Hgb 11.2 L (13.5-17.5) gm/dL Hct 35.0 L (37.0-53.0) % MCV 96 (80-100) fL MCH 31 (26-34) pg MCHC 32 (32-36) gm/dL RDW Coeff of [place] 14.7 (11.5-15.5) % Plt Count 136 L (140-440) K/uL Neut % (Auto) 54.6 (42.0-72.0) % Lymph % (Auto) 26.3 (20-44) % [place] % (Auto) 16.5 H (0.0-11.0) % Eos % (Auto) 2.3 (0.0-7.0) % Baso % (Auto) 0.0 (0.0-3.0) % Neut # (Auto) 2.10 (1.7-7.0) K/uL Lymph # (Auto) 1.00 (0.90-2.90) K/uL [place] # (Auto) 0.60 (0.00-0.90) K/UL Eos # (Auto) 0.10 (0.00-0.50) K/uL Baso # (Auto) 0.00 (0.00-0.30) K/uL Abs Immat Gran (auto) 0.00 (0.00-0.30) K/uL Imm/Tot Granulo (auto) 0.3 % Sodium 135 (135-149) mmol/L Potassium 3.4 L (3.6-5.1) mmol/L Chloride 94 L (96-114) mmol/L Carbon Dioxide 33 H (20-32) mmol/L Anion Gap 8 (7-15) mEq/L BUN 26 (7-30) mg/dL Creatinine 1.5 (0.5-1.5) mg/dL Estimated Creat Clear 37.33 Estimated GFR 47 ml/min Glucose 98 (60-115) mg/dL Uric Acid 10.7 H (2.2-8.4) mg/dL Calcium 9.5 (8.4-10.6) mg/dL C-Reactive Protein 0.6 (0.5-1.0) mg/dL Discharge Plan Discharge Clinical Impression: Gout attack, Pain in toe, Acute foot pain Patient Disposition: Home, Self-Care Condition: Stable Additional Instructions: Very pleased you are feeling better. This injection might help you make it through the night. And then hopefully the oral medicine that you got here will settle this down by tomorrow afternoon. As you asked for, your received an injection of bupivacaine in a digital block around your toe. You received 1.2 mg of colchicine in a pill and another 0.6 mg that I would like you to take yet tonight 1 hour after you took the 1st dose. Since you are taking rivaroxaban, you are little limited in the nonsteroidal anti-inflammatories we can recommend. I have written for a course of prednisone <del>you</del> <del>can</del> <del>pick</del> <del>up</del> <del>in</del> <del>[facility]</del> <del>on</del> <del>your</del> <del>way</del> <del>out.</del> <del>If</del> <del>in</del> <del>a</del> <del>day</del> <del>your</del> <del>toe</del> <del>isn't</del> <del>much</del> <del>better,</del> <del>you</del> <del>can</del> <del>start</del> <del>this</del> <del>prednisone.</del> <del>Also</del> <del>in</del> <del>[facility]</del> I have ordered Carbon. This is an opiate containing 5 mg of hydrocodone and 325 mg of acetaminophen in each tablet. It can make you tired and potentially constipated. This is for breakthrough pain. Medications instead as requested were sent to your pharmacy <del>Take</del> <del>the</del> <del>prednisone</del> <del>as</del> <del>40</del> <del>mg</del> <del>(2</del> <del>tabs)</del> <del>daily</del> <del>for</del> <del>4</del> <del>days;</del> <del>then</del> <del>20</del> <del>mg</del> <del>(1</del> <del>tab)</del> <del>daily</del> <del>for</del> <del>5</del> <del>days;</del> <del>then</del> <del>10</del> <del>mg</del> <del>(1/2</del> <del>of</del> <del>a</del> <del>tab)</del> <del>daily</del> <del>for</del> <del>3</del> <del>days.</del> <del>(you</del> <del>will</del> <del>have</del> <del>some</del> <del>prednisone</del> <del>tablets</del> <del>remaining</del> <del>that</del> <del>you</del> <del>could</del> <del>start</del> <del>in</del> <del>case</del> <del>you</del> <del>have</del> <del>a</del> <del>future</del> <del>flare</del> <del>if</del> <del>necessary</del> <del>until</del> <del>you</del> <del>could</del> <del>be</del> <del>re-evaluated)</del> Prescriptions: New prednisone 20 mg tablet 20 mg PO DAILY Qty: 14 1RF Rx Instructions: take 40mg po for 4 days; then 20mg daily for 4 days; then 10mg daily for 4 days. hydrocodone-acetaminophen 5-325 mg tablet 1 - 2 tab PO Q4-6H PRN (Reason: pain) Qty: 10 0RF hydrocodone-acetaminophen 5-325 mg tablet 1 - 2 tab PO Q4-6H PRN (Reason: pain) Qty: 10 0RF hydrocodone-acetaminophen 5-325 mg tablet 1 - 2 tab PO Q4-6H PRN (Reason: pain) Qty: 9 0RF No Action albuterol 90 mcg/actuation aerosol inhalation guaifenesin [Expectorant] 200 mg tablet 200 mg PO TID sertraline 100 mg tablet 100 mg PO DAILY Spiriva Respimat 2.5 mcg/actuation mist 2 inh inhalation DAILY cephalexin 500 mg capsule 500 mg PO TID 7 Days Qty: 21 0RF doxycycline monohydrate 100 mg capsule 100 mg PO BID Qty: 10 0RF furosemide [Lasix] 40 mg tablet 40 mg PO DAILY Qty: 7 0RF calcium carbonate 500 mg calcium (1,250 mg) tablet 650 mg PO DAILY cholecalciferol (vitamin D3) 25 mcg (1,000 unit) capsule 25 mcg PO DAILY cyanocobalamin (vitamin B-12) 1,000 mcg capsule 500 mcg PO DAILY brimonidine 0.2 % drops 1 drp ophthalmic (eye) BID carboxymethylcellulose sodium 0.25 % dropperette 1 drp ophthalmic (eye) Q1H PRN fluticasone propionate [Allergy Relief (fluticasone)] 50 mcg/actuation spray,suspension 1 spray intranasal DAILY PRN Rx Instructions: administer into each nostril ipratropium bromide 17 mcg/actuation HFA aerosol inhaler 2 inh inhalation Q6H fluticasone propion-salmeterol [Advair Diskus] 250-50 mcg/dose blister with device 1 inh inhalation BID cephalexin 500 mg capsule 500 mg PO QID Qty: 30 0RF cephalexin 500 mg capsule 500 mg PO Q8H Qty: 20 0RF Follow Up/Referrals: Provider,Not a Local [Primary Care Provider, Family Practice] Stand Alone Forms: [facility]
--- NOTE | 2025-06-26 19:04 | CRLHL7_ITS ---
For Patients: As a result of the Cures Act, medical imaging exams and procedure reports are released immediately into your electronic medical record. You may view this report before your referring provider. If you have questions, please contact your health care provider. Indication: Inflammation and pain Technique: Right great toe, 3 views. Comparison: None. Findings/Impression: There is no acute fracture or malalignment. Minimal polyarticular osteoarthrosis most pronounced at the 1st tarsometatarsal joint. No significant soft tissue swelling. No radiopaque foreign body. Dictated by Vijaya Recio MD @ 06/26/2025 7:40:49 PM (Electronically Signed)
[2025-06-26 20:13] LABS: Hematocrit* 35.0 % (37.0-53.0); Hemoglobin* 11.2 gm/dL (13.5-17.5); Immature Granulocytes Pct Auto 0.3 %; Mean Corpuscular HGB Conc 32 gm/dL (32-36); Mean Corpuscular Hemoglobin 31 pg (26-34); Mean Corpuscular Volume 96 fL (80-100); RDW Coefficient of Variation % 14.7 % (11.5-15.5); Red Blood Count* 3.64 m/uL (4.30-5.90); White Blood Count* 3.88 K/uL (4.50-11.00)
[2025-06-26 20:23] LABS: Chloride* 94 mmol/L (96-114); Potassium* 3.4 mmol/L (3.6-5.1); Sodium* 135 mmol/L (135-149)
[2025-06-26 20:26] LABS: Blood Urea Nitrogen* 26 mg/dL (7-30); Creatinine* 1.5 mg/dL (0.5-1.5); Est. Creatinine Clearance* 37.33; Estimated Glomerular Filt Rate 47 ml/min
[2025-06-26 20:27] LABS: Anion Gap 8 mEq/L (7-15); Calcium* 9.5 mg/dL (8.4-10.6); Carbon Dioxide* 33 mmol/L (20-32); Glucose* 98 mg/dL (60-115)
[2025-06-26 20:28] LABS: Immature Granulocytes Abs Auto 0.00 K/uL (0.00-0.30); Lymphocytes Absolute Auto 1.00 K/uL (0.90-2.90); Slide Review Reflex No
[2025-06-26] MEDS: COLCHICINE 0.6 MG CAPSULE 1.2 MG PO (21:54)
== END 2025-06-26 22:18 | disposition home or self-care (01) ==
PROVIDERS: Emergency Provider Family Medicine
DX: M10.9 Gout, unspecified (principal); M79.671 Pain in right foot
CPT/HCPCS: 36415; 64450; 73660; 80048; 84550; 85025; 86140; 99284; 99285; A9270